=== PATIENT | female | born 1935 | race Caucasian/White ===

== ENCOUNTER → 2017-11-21 09:36 | Outpatient (CLI) | payer MEDICARE, SELFPAY ==
[2017-11-21 10:36] LABS: AST(SGOT) 13 U/L (15-37); Alanine Aminotransfer ALT/SGPT 23 U/L (13-56); Albumin, Serum 3.5 g/dL (3.2-5.0); Alkaline Phosphatase 72 U/L (45-117); Bilirubin, Direct 0.12 mg/dL (0.00-0.30); Cholesterol 210 mg/dL (200); Globulin 3.5 g/dL (2.2-4.2); High Density Lipoprotein 35 mg/dL; Triglycerides 225 mg/dL; Very Low Density Lipoprotein 45 mg/dL (5-40)
== END ==
PROVIDERS: Family Provider Family Medicine Geriatric Medicine; PCP Family Medicine Geriatric Medicine; Visit Provider Internal Medicine Cardiovascular Disease
DX: E78.5 Hyperlipidemia, unspecified (principal); Z79.899 Other long term (current) drug therapy
CPT/HCPCS: 36415; 80061; 80076

== ENCOUNTER → 2017-11-26 14:48 | Outpatient (CLI) | payer MEDICARE, SELFPAY ==
[2017-11-26 17:13] LABS: Absolute Lymphocyte Count 2.64 X10^3/ul (0.83-4.51); Absolute Neutrophil Count 5.2 X10^3/uL (2.0-7.7); Basophil# 0.07 X10^3/uL; Basophil% 0.8 % (0-1); Eosinophil# 0.44 X10^3/uL; Eosinophils% 4.8 % (0-5); Hematocrit 39.4 % (37-47); Hemoglobin 13.1 g/dl (12.0-15.0); Lymphocyte # 2.64 X10^3/ul (4.0); Mean Corp Hgb Conc 33.2 g/gl (32-36); Mean Corpuscular Hgb 29.1 pg (27.0-32.0); Mean Corpuscular Volume 87.6 fL (81-99); Mean Platelet Vol. 11.6 fl (6.2-12.0); Monocyte# 0.75 X10^3/uL; Monocyte% 8.2 % (0-10); Neutrophil # 5.19 X10^3/uL (2.7-7.7); Platelet Count 280 K/mm3 (150-450); RBC Distribution Width CV 13.4 % (11.6-14.6); RBC Distribution Width SD 41.6 fl (35.1-43.9); White Blood Count 9.1 K/mm3 (4.4-11.0)
[2017-11-26 17:16] LABS: POSITIVE COUNT NO; POSITIVE DIFFERENTIAL NO; POSITIVE MORPHOLOGY NO
[2017-11-26 17:36] LABS: Vitamin D,25 Hydroxy 30.6 ng/mL (29.95-100.01)
[2017-11-26 17:45] LABS: AST(SGOT) 12 U/L (15-37); Alanine Aminotransfer ALT/SGPT 24 U/L (13-56); Albumin, Serum 3.6 g/dL (3.2-5.0); Alkaline Phosphatase 74 U/L (45-117); Anion Gap 11 (5-15); BUN 19 mg/dL (7-18); BUN/Creat Ratio 18.4 RATIO (10-20); Chloride 103 mmol/L (98-107); Creatinine, Serum 1.03 mg/dL (0.55-1.02); EST Glomerular Filtration Rate 55 mL/min (>60); Est Glom Filt Rate - Afr Amer 66 mL/min (>60); Globulin 3.6 g/dL (2.2-4.2); Glucose 179 mg/dL (74-106); Potassium 3.7 mmol/L (3.5-5.1); Protein, Total 7.2 g/dL (6.4-8.2); Sodium Level 140 mmol/L (136-145); Thyroid Stim Hormone (TSH) 1.85 uIU/mL (0.358-3.74)
== END ==
PROVIDERS: Family Provider Family Medicine Geriatric Medicine; PCP Family Medicine Geriatric Medicine; Visit Provider Family Medicine Geriatric Medicine
DX: E11.9 Type 2 diabetes mellitus without complications (principal); E55.9 Vitamin D deficiency, unspecified; I10 Essential (primary) hypertension
CPT/HCPCS: 36415; 80053; 82306; 84443; 85025

== ENCOUNTER → 2017-12-02 15:57 | Outpatient (CLI) | payer MEDICARE, SELFPAY ==
--- NOTE | 2017-12-02 10:26 | TISS_PTH ---
PATIENT: ENDER ALVES LOC: [facility] U#:[id number] AGE/SX: 89/F ROOM: RE12/02/[address]: Dr. Brian Degroot MD : [id number] BED: DIS: SPEC #: [id number] RECD: 12/02/17 18:26 STATUS: LENORE MAXINE #: [id number] CRISTOBAL: 12/02/17 10:[address]: Brian Degroot Chi DEPT: SURGICAL PATHOLOGY RECD BY: Alma Victor Tissues: A - Skin of neck, NOS B - Skin of knee, NOS Procedures: Special Stain Group I Surgery Specimen Level IV GMS Stain (control) HEADER OPERATION: Not noted PRE-OP DIAGNOSIS: L98.9 TISSUE SUBMITTED: A. Right neck, B. Right, behind knee MICROSCOPIC DIAGNOSIS A. Right neck, excisional biopsy: Seborrheic keratosis. Squamous papilloma. Special stain for fungi is negative for organisms; matched control is appropriate. B. Right, behind knee lesion, biopsy: Superficial portion of verrucous keratosis, suggestive of verruca vulgaris. Special stain for fungi is negative for organisms; matched control is appropriate. CATHERINE:justice 12/04/17 COMMENT Clinical correlation and appropriate follow up are necessary. MICROSCOPIC DESCRIPTION Slides are reviewed. GROSS DESCRIPTION A - Received is one container labeled with the patient's name and not further designated. The specimen consists of two irregular fragments of atkinson tissue that in aggregate measure 0.6 x 0.5 x 0.2 cm. The specimen is totally submitted in one cassette. B - Received is one container labeled with the patient's name and not further designated. The specimen consists of multiple irregular fragments of atkinson tissue ranging in size from 0.1 to 0.5 cm in greatest dimension. The larger fragment is inked, bisected and submitted along with the smaller fragments in one cassette. / AM:justice 12/03/17 TC: 4 CPT: 08253 x2, 30245 x2
== END ==
PROVIDERS: Family Provider Family Medicine Geriatric Medicine; PCP Family Medicine Geriatric Medicine; Visit Provider Family Medicine Geriatric Medicine
DX: L98.9 Disorder of the skin and subcutaneous tissue, unspecified (principal)
CPT/HCPCS: 88305; 88312

== ENCOUNTER → 2018-01-01 16:12 | Outpatient (CLI) | payer MEDICARE, SELFPAY ==
--- NOTE | 2018-01-01 16:48 | RAD_ITS ---
STUDY: X-RAY CHEST REASON FOR EXAM: Female, 82 years old. Bronchitis TECHNIQUE: Frontal and lateral views of the chest COMPARISON: 01/30/2015 FINDINGS: The lungs are clear. There are no pleural effusions. There is no pneumothorax. The heart is normal in size. Again noted are sternotomy wires. There are stable old, healed right-sided rib fractures. RAD/Chest PA and Lateral IMPRESSION: No acute thoracic pathology. Electronically Signed: Armando Meredith, at 19:28 EDT Tel , Service support ,
[2018-01-01 18:01] LABS: Anion Gap 9 (5-15); BUN 17 mg/dL (7-18); Chloride 104 mmol/L (98-107); EST Glomerular Filtration Rate 57 mL/min (>60); Est Glom Filt Rate - Afr Amer 69 mL/min (>60); Glucose 204 mg/dL (74-106); Potassium 3.4 mmol/L (3.5-5.1); Sodium Level 140 mmol/L (136-145)
[2018-01-01 18:02] LABS: Absolute Lymphocyte Count 3.06 X10^3/ul (0.83-4.51); Basophil# 0.06 X10^3/uL; Basophil% 0.7 % (0-1); Eosinophil# 0.38 X10^3/uL; Eosinophils% 4.2 % (0-5); Hematocrit 36.4 % (37-47); Hemoglobin 12.2 g/dl (12.0-15.0); Lymphocyte # 3.06 X10^3/ul (4.0); Lymphocyte % 33.6 % (19-41); Mean Corp Hgb Conc 33.5 g/gl (32-36); Mean Corpuscular Volume 86.5 fL (81-99); Mean Platelet Vol. 11.4 fl (6.2-12.0); Monocyte# 0.61 X10^3/uL; Monocyte% 6.7 % (0-10); Neutrophil # 4.98 X10^3/uL (2.7-7.7); Neutrophil % 54.5 % (47-70); Platelet Count 283 K/mm3 (150-450); RBC Distribution Width CV 13.2 % (11.6-14.6); RBC Distribution Width SD 40.9 fl (35.1-43.9); Red Blood Count 4.21 M/mm3 (4.2-5.4); White Blood Count 9.1 K/mm3 (4.4-11.0)
[2018-01-01 18:17] LABS: POSITIVE COUNT NO; POSITIVE DIFFERENTIAL NO; POSITIVE MORPHOLOGY NO
== END ==
PROVIDERS: Family Provider Family Medicine Geriatric Medicine; PCP Family Medicine Geriatric Medicine; Visit Provider Family Medicine Geriatric Medicine
DX: J40 Bronchitis, not specified as acute or chronic (principal); R68.83 Chills (without fever); R06.02 Shortness of breath
CPT/HCPCS: 36415; 71046; 80048; 85025; 87633

== ENCOUNTER → 2018-01-09 10:18 | Outpatient (CLI) | payer MEDICARE, SELFPAY ==
[2018-01-09 13:38] LABS: Anion Gap 8 (5-15); BUN 19 mg/dL (7-18); BUN/Creat Ratio 14.3 RATIO (10-20); Calcium,Total 8.3 mg/dL (8.5-10.1); Chloride 104 mmol/L (98-107); Creatinine, Serum 1.33 mg/dL (0.55-1.02); EST Glomerular Filtration Rate 41 mL/min (>60); Est Glom Filt Rate - Afr Amer 49 mL/min (>60); Glucose 227 mg/dL (74-106); Potassium 3.5 mmol/L (3.5-5.1); Sodium Level 139 mmol/L (136-145)
== END ==
PROVIDERS: Family Provider Family Medicine Geriatric Medicine; PCP Family Medicine Geriatric Medicine; Visit Provider Family Medicine Geriatric Medicine
DX: E87.6 Hypokalemia (principal)
CPT/HCPCS: 36415; 80048

== ENCOUNTER → 2018-01-15 14:22 | Outpatient (CLI) | payer MEDICARE, SELFPAY ==
--- NOTE | 2018-01-15 14:23 | US_ITS ---
STUDY: RENAL ULTRASOUND - LIMITED REASON FOR EXAM: Female, 82 years old. Renal mass TECHNIQUE: Transverse and longitudinal imaging of the kidneys was performed using real-time ultrasound. COMPARISON: October 03, 2015 FINDINGS: RIGHT KIDNEY: The right kidney is normal in location. The right kidney measures 10.7 x 5.3 x 4.8 cm. The renal cortex is normal in appearance. The renal cortex measures 1.3 cm. There is no demonstrated renal mass. There is no dilatation of the collecting system. LEFT KIDNEY: The left kidney is normal in location. The left kidney measures 10.2 x 5.6 x 5.1 cm. The renal cortex is normal in appearance. The renal cortex measures 1.4 cm. An echogenic mass is again seen in the lower pole of the left kidney measuring 7.1 x 7.0 x 8.2 mm. This previously measured 7.6 x 7.5 x 8.2 mm. There is no dilatation of the collecting system. US/Kidney and Bladder IMPRESSION: Both kidneys are normal in size and echogenicity without hydronephrosis. 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 Electronically Signed: Eden Lipscomb MD at 16:08 EDT Tel Direct: [phone], Service support ,
== END ==
PROVIDERS: Family Provider Family Medicine Geriatric Medicine; PCP Family Medicine Geriatric Medicine; Visit Provider Internal Medicine Nephrology
DX: D17.71 Benign lipomatous neoplasm of kidney (principal); N28.89 Other specified disorders of kidney and ureter
CPT/HCPCS: 76770

== ENCOUNTER → 2018-02-05 07:27 | Outpatient (CLI) | payer MEDICARE, SELFPAY ==
--- NOTE | 2018-02-05 07:29 | BI_ITS ---
MAMMOGRAPHY - BILATERAL SCREENING REASON FOR EXAM: Female, 82 years old. Routine annual screening examination. PERTINENT HISTORY: Sister with breast cancer. TECHNIQUE: Digital bilateral breast luli (3D mammographic acquisition) in the CC and MLO projections. 2-D mediolateral oblique (MLO) and craniocaudad (CC) views of both breasts were obtained. CAD: Full Field Digital Mammography with Computer Added Detection was performed. COMPARISON: Comparison is made with prior study dated January 28, 2017 and January 25, 2016. FINDINGS: Breast Composition: There are scattered areas of fibroglandular density. There are no dominant masses or suspicious calcifications. No other significant abnormalities are identified. There has been no significant change since the prior study. BI/SCREENING MAMM (CAD), BILAT IMPRESSION: Stable bilateral screening mammogram. Yearly follow-up mammogram recommended. (A) ASSESSMENT CATEGORY: BIRADS Category 1: Negative. A letter regarding these results will be sent to the patient by the facility within 30 days. Approximately 10% of breast cancers are not detected by mammography. A normal mammogram should not delay biopsy of a clinically suspicious abnormality. [id number] Electronically Signed: Farzad Banks MD at 10:25 EDT Tel [phone], Service support ,
--- NOTE | 2018-02-05 07:29 | BI_ITS ---
MAMMOGRAPHY - BILATERAL SCREENING REASON FOR EXAM: Female, 82 years old. Routine annual screening examination. PERTINENT HISTORY: Sister with breast cancer. TECHNIQUE: Digital bilateral breast perico (3D mammographic acquisition) in the CC and MLO projections. 2-D mediolateral oblique (MLO) and craniocaudad (CC) views of both breasts were obtained. CAD: Full Field Digital Mammography with Computer Added Detection was performed. COMPARISON: Comparison is made with prior study dated January 28, 2017 and January 25, 2016. FINDINGS: Breast Composition: There are scattered areas of fibroglandular density. There are no dominant masses or suspicious calcifications. No other significant abnormalities are identified. There has been no significant change since the prior study. BI/Bilat Brst Screen Perico Add-On IMPRESSION: Stable bilateral screening mammogram. Yearly follow-up mammogram recommended. (A) ASSESSMENT CATEGORY: BIRADS Category 1: Negative. A letter regarding these results will be sent to the patient by the facility within 30 days. Approximately 10% of breast cancers are not detected by mammography. A normal mammogram should not delay biopsy of a clinically suspicious abnormality. [id number] Electronically Signed: Farzad Banks MD at 10:25 EDT Tel [phone], Service support ,
== END ==
PROVIDERS: Family Provider Family Medicine Geriatric Medicine; PCP Family Medicine Geriatric Medicine; Visit Provider Family Medicine Geriatric Medicine
DX: Z12.31 Encounter for screening mammogram for malignant neoplasm of breast (principal)
CPT/HCPCS: 77063; 77067

== ENCOUNTER → 2018-02-11 15:24 | Outpatient (CLI) | payer MEDICARE, SELFPAY ==
[2018-02-11 17:33] LABS: Absolute Lymphocyte Count 2.92 X10^3/ul (0.83-4.51); Basophil# 0.06 X10^3/uL; Basophil% 0.6 % (0-1); Eosinophil# 0.23 X10^3/uL; Eosinophils% 2.3 % (0-5); Hematocrit 38.6 % (37-47); Hemoglobin 12.6 g/dl (12.0-15.0); Lymphocyte # 2.92 X10^3/ul (4.0); Mean Corp Hgb Conc 32.6 g/gl (32-36); Mean Corpuscular Hgb 28.8 pg (27.0-32.0); Mean Corpuscular Volume 88.3 fL (81-99); Mean Platelet Vol. 11.5 fl (6.2-12.0); Monocyte% 7.9 % (0-10); Neutrophil # 6.02 X10^3/uL (2.7-7.7); Neutrophil % 59.8 % (47-70); Platelet Count 308 K/mm3 (150-450); RBC Distribution Width CV 13.7 % (11.6-14.6); RBC Distribution Width SD 43.7 fl (35.1-43.9); Red Blood Count 4.37 M/mm3 (4.2-5.4); White Blood Count 10.1 K/mm3 (4.4-11.0)
[2018-02-11 17:34] LABS: POSITIVE COUNT NO; POSITIVE DIFFERENTIAL NO; POSITIVE MORPHOLOGY NO
[2018-02-11 17:52] LABS: Vitamin D,25 Hydroxy 32.2 ng/mL (29.95-100.01)
[2018-02-11 18:03] LABS: ALB/GLOB Ratio 0.9 RATIO (0.9-2.4); AST(SGOT) 12 U/L (15-37); Alanine Aminotransfer ALT/SGPT 25 U/L (13-56); Albumin, Serum 3.5 g/dL (3.2-5.0); Alkaline Phosphatase 69 U/L (45-117); Anion Gap 8 (5-15); BUN 21 mg/dL (7-18); BUN/Creat Ratio 17.8 RATIO (10-20); Calcium,Total 9.2 mg/dL (8.5-10.1); Chloride 102 mmol/L (98-107); Creatinine, Serum 1.18 mg/dL (0.55-1.02); EST Glomerular Filtration Rate 47 mL/min (>60); Est Glom Filt Rate - Afr Amer 57 mL/min (>60); Globulin 3.7 g/dL (2.2-4.2); Glucose 181 mg/dL (74-106); Potassium 3.3 mmol/L (3.5-5.1); Protein, Total 7.2 g/dL (6.4-8.2); Sodium Level 140 mmol/L (136-145); Thyroid Stim Hormone (TSH) 0.84 uIU/mL (0.358-3.74)
== END ==
PROVIDERS: Family Provider Family Medicine Geriatric Medicine; PCP Family Medicine Geriatric Medicine; Visit Provider Internal Medicine Nephrology
DX: I12.9 Hypertensive chronic kidney disease with stage 1 through stage 4 chronic kidney disease, or unspecified chronic kidney disease (principal); E11.22 Type 2 diabetes mellitus with diabetic chronic kidney disease; N18.3 Chronic kidney disease, stage 3 (moderate); E55.9 Vitamin D deficiency, unspecified
CPT/HCPCS: 36415; 80053; 82306; 84443; 85025

== ENCOUNTER → 2018-03-26 15:25 | Outpatient (CLI) | payer MEDICARE, SELFPAY ==
[2018-03-26 18:04] LABS: Absolute Lymphocyte Count 2.47 X10^3/ul (0.83-4.51); Absolute Neutrophil Count 8.5 X10^3/uL (2.0-7.7); Basophil# 0.04 X10^3/uL; Basophil% 0.3 % (0-1); Eosinophil# 0.22 X10^3/uL; Eosinophils% 1.8 % (0-5); Hematocrit 36.2 % (37-47); Hemoglobin 11.8 g/dl (12.0-15.0); Lymphocyte # 2.47 X10^3/ul (4.0); Lymphocyte % 20.2 % (19-41); Mean Corp Hgb Conc 32.6 g/gl (32-36); Mean Corpuscular Hgb 28.6 pg (27.0-32.0); Mean Corpuscular Volume 87.9 fL (81-99); Mean Platelet Vol. 10.8 fl (6.2-12.0); Monocyte% 8.2 % (0-10); Neutrophil # 8.47 X10^3/uL (2.7-7.7); Neutrophil % 69.3 % (47-70); POSITIVE COUNT NO; POSITIVE DIFFERENTIAL NO; POSITIVE MORPHOLOGY NO; Platelet Count 338 K/mm3 (150-450); RBC Distribution Width CV 13.2 % (11.6-14.6); RBC Distribution Width SD 42.3 fl (35.1-43.9); Red Blood Count 4.12 M/mm3 (4.2-5.4); White Blood Count 12.2 K/mm3 (4.4-11.0)
[2018-03-26 18:11] LABS: Anion Gap 9 (5-15); BUN 19 mg/dL (7-18); BUN/Creat Ratio 20.5 RATIO (10-20); Chloride 108 mmol/L (98-107); Creatinine, Serum 0.93 mg/dL (0.55-1.02); EST Glomerular Filtration Rate 62 mL/min (>60); Est Glom Filt Rate - Afr Amer 75 mL/min (>60); Glucose 125 mg/dL (74-106); Potassium 3.5 mmol/L (3.5-5.1); Sodium Level 140 mmol/L (136-145); Uric Acid 4.1 mg/dL (2.6-6.0)
[2018-03-26 18:16] LABS: Erythrocyte Sedimentation Rate 41 mm/hr (0-30)
== END ==
PROVIDERS: Family Provider Family Medicine Geriatric Medicine; PCP Family Medicine Geriatric Medicine; Visit Provider Family Medicine Geriatric Medicine
DX: M25.50 Pain in unspecified joint (principal); M10.9 Gout, unspecified
CPT/HCPCS: 36415; 80048; 84550; 85025; 85652; 86140

== ENCOUNTER 2018-03-31 07:03 | Inpatient (IN) | payer MEDICARE, SELFPAY ==
[2018-03-31] VITALS (15 sets, daily range): BP systolic 108–170; BP diastolic 53–86; PULSE 84–119; RESP 16–34; TEMP 36.8–38.3; O2SAT 91–95; BMI 30.1; BMI 30.3
--- NOTE | 2018-03-31 07:31 | EKG12_ITS ---
Test Reason : SOB Blood Pressure : / mmHG Vent. Rate : 107 BPM Atrial Rate : 107 BPM P-R Int : 132 ms QRS Dur : 106 ms QT Int : 356 ms P-R-T Axes : 043 -36 030 degrees QTc Int : 475 ms Sinus tachycardia Left axis deviation Inferior infarct , age undetermined Abnormal ECG Confirmed by VINAY CORONA, CORY ([id number]), supervising editor news reel JUANIS PLUNKETT ([id number]) on 04/02/2018 2:13:01 PM Referred By: MERYL Confirmed By:CORY MCLEAN MD
--- NOTE | 2018-03-31 07:37 | RAD_ITS ---
STUDY: X-RAY CHEST REASON FOR EXAM: Female, 82 years old. Shortness of breath, nausea and vomiting. TECHNIQUE: Single AP portable view of the chest. COMPARISON: Comparison is made with prior study dated January 01, 2018. FINDINGS: EKG electrodes are seen. There is evidence of infiltration in the left upper lobe and patchy infiltrate in the left lower lobe with blunting of the left costophrenic angle. Radiographic follow-up is recommended. Sternal cerclage wires and vascular clips are present from a prior sternotomy and coronary artery bypass graft procedure (CABG). Normal mediastinum and norma. Normal visualized pulmonary arteries. There is atherosclerotic calcification of the aortic arch with tortuosity. Normal visualized thoracic spine. Healed right rib fractures. There is no demonstrated abnormality of the visualized soft tissue structures of the upper abdomen. RAD/Chest 1 View (Portable) IMPRESSION: Left pulmonary infiltrates with blunting of the left costophrenic angle. Radiographic follow-up is recommended. Electronically Signed: Farzad Banks MD at 7:57 EDT Tel [phone], Service support ,
[2018-03-31] MEDS: Ondansetron 4 MG/2 ML Vial IV (07:40)
[2018-03-31] MEDS: 0.9% Normal Saline 1,000 ML 1000 ML IV (07:40)
[2018-03-31 07:44] LABS: Absolute Lymphocyte Count 0.61 X10^3/ul (0.83-4.51); Absolute Neutrophil Count 16.2 X10^3/uL (2.0-7.7); Basophil# 0.01 X10^3/uL; Basophil% 0.1 % (0-1); Hematocrit 36.4 % (37-47); Hemoglobin 12.3 g/dl (12.0-15.0); Lymphocyte # 0.61 X10^3/ul (4.0); Lymphocyte % 3.5 % (19-41); Mean Corp Hgb Conc 33.8 g/gl (32-36); Mean Corpuscular Hgb 28.7 pg (27.0-32.0); Mean Corpuscular Volume 84.8 fL (81-99); Mean Platelet Vol. 10.5 fl (6.2-12.0); Monocyte# 0.64 X10^3/uL; Monocyte% 3.7 % (0-10); Neutrophil # 16.15 X10^3/uL (2.7-7.7); Neutrophil % 92.4 % (47-70); POSITIVE COUNT NO; POSITIVE DIFFERENTIAL NO; POSITIVE MORPHOLOGY NO; Platelet Count 345 K/mm3 (150-450); RBC Distribution Width CV 13.2 % (11.6-14.6); RBC Distribution Width SD 40.6 fl (35.1-43.9); Red Blood Count 4.29 M/mm3 (4.2-5.4); White Blood Count 17.5 K/mm3 (4.4-11.0)
[2018-03-31 07:57] LABS: AST(SGOT) 17 U/L (15-37); Alanine Aminotransfer ALT/SGPT 23 U/L (13-56); Albumin, Serum 2.2 g/dL (3.2-5.0); Alkaline Phosphatase 85 U/L (45-117); Anion Gap 12 (5-15); BUN 22 mg/dL (7-18); BUN/Creat Ratio 17.2 RATIO (10-20); Bilirubin, Direct 0.26 mg/dL (0.00-0.30); Calcium,Total 8.4 mg/dL (8.5-10.1); Chloride 98 mmol/L (98-107); Creatinine, Serum 1.28 mg/dL (0.55-1.02); EST Glomerular Filtration Rate 43 mL/min (>60); Est Glom Filt Rate - Afr Amer 52 mL/min (>60); Estimated Creatinine Clearance 30.27 ml/min; Globulin 5.1 g/dL (2.2-4.2); Glucose 202 mg/dL (74-106); Lipase 133 U/L (73-393); Protein, Total 7.3 g/dL (6.4-8.2); Sodium Level 131 mmol/L (136-145)
--- NOTE | 2018-03-31 08:22 | EKG12_ITS ---
Test Reason : REPEAT Blood Pressure : / mmHG Vent. Rate : 094 BPM Atrial Rate : 094 BPM P-R Int : 132 ms QRS Dur : 106 ms QT Int : 376 ms P-R-T Axes : 040 -26 047 degrees QTc Int : 470 ms Normal sinus rhythm Inferior infarct , age undetermined Abnormal ECG Confirmed by VINAY CORONA, CORY ([id number]), city editor JUANIS PLUNKETT ([id number]) on 04/02/2018 2:12:36 PM Referred By: MERYL Confirmed By:CORY MCLEAN MD
[2018-03-31] MEDS: Ceftriaxone 1 GM/50 ML BAG IV (08:34)
--- NOTE | 2018-03-31 08:43 | ED.VISSUMM ---
- ER Visit Summary Date of Service: 03/31/18 Chief Complaint: Cough and diarrhea History of Present Illness: The patient is a [address] Degroot and Dr. Bonilla. She reports that for the past 4 days she has had diarrhea approximately 3 times per day. No blood in her stools or black tarry stools. She has had nausea without vomiting. No abdominal pain. Patient denies sick contacts. Has not been camping out of the country. No possible bad food exposure. Does not drink well water. No recent antibiotic use. Patient also complains of subjective fever and chills. She has a nonproductive cough. She denies any chest pain or shortness of breath. She has a headache that is 7 out of 10 in severity and comes and goes. Finally, she complains of generalized weakness. Physical Examination: Vitals: 99.8, 144/73, 108, 28, 91% on room air which is not hypoxic. General: Well-nourished and well-developed. Head: Normocephalic atraumatic. Neck: Supple, no lymphadenopathy. No JVD. Nontender. Cardiovascular: Regular rate and rhythm. 2 out of 6 systolic murmur. Respiratory: No respiratory distress. Rhonchi on the left. Abdominal: Soft, nontender, nondistended, normal bowel sounds. No guarding, rebound, or peritoneal signs. Back: Nontender. Extremities: Nontender, no edema. Skin: Normal color, no rash. Neurologic: Alert and oriented ?3. Cranial nerves II through XII are intact. Normal strength and sensation. Psych: Normal affect. Test Results: EKG is sinus tachycardia 107 and is unchanged from January 2015. CBC is more for white count of 17.5 with 92 segmented neutrophils and 4 lymphocytes. Hematocrit is 36.4. Chem-7 is more for sodium 131, potassium 3.0, calcium 8.4, glucose of 202, BUN 22, creatinine 1.28. LFTs marked for an albumin of 2.2 and globulin 5.1. Lipase is normal. Troponin 0 0.019. Chest x-ray shows a left upper lobe and left lower lobe infiltrate. Lactic acid is 1.6. Magnesium is 1.9. Emergency Department Course and Treatment: Patient had a run where her heart rate was approximately 200. This appears to be SVT on the rhythm strip. This resolved without treatment. She is also having occasional PVCs. When the chest x-ray was obtained the patient had a lactic acid added and was given Rocephin and Zithromax IV. She was given K-Dur p.o. She was given Zofran for her nausea. She is resting comfortably. Treatment Plan: Patient will be discussed the hospitalist for admission. Disposition: Admitted in serious condition. Impression: 1. Pneumonia, community-acquired. 2. Diarrhea. 3. Hypokalemia. 4. SVT. This note was generated with [employer] 401 dictation software. It may contain incorrect words, spelling, and punctuation that were not noted in review of the chart prior to signing ED Disposition - Plan for ED Patient: Chief Complaint: Nausea/Vomiting/Diarrhea Referrals: Brian Degroot Chi, MD [Primary Care Provider] -
--- NOTE | 2018-03-31 08:47 | ED.DCSUM_ITS ---
- ER Visit Summary Date of Service: 03/31/18 Chief Complaint: Cough and diarrhea History of Present Illness: The patient is a [address] Degroot and Dr. Bonilla. She reports that for the past 4 days she has had diarrhea approximately 3 times per day. No blood in her stools or black tarry stools. She has had nausea without vomiting. No abdominal pain. Patient denies sick contacts. Has not been camping out of the country. No possible bad food exposure. Does not drink well water. No recent antibiotic use. Patient also complains of subjective fever and chills. She has a nonproductive cough. She denies any chest pain or shortness of breath. She has a headache that is 7 out of 10 in severity and comes and goes. Finally, she complains of generalized weakness. Physical Examination: Vitals: 99.8, 144/73, 108, 28, 91% on room air which is not hypoxic. General: Well-nourished and well-developed. Head: Normocephalic atraumatic. Neck: Supple, no lymphadenopathy. No JVD. Nontender. Cardiovascular: Regular rate and rhythm. 2 out of 6 systolic murmur. Respiratory: No respiratory distress. Rhonchi on the left. Abdominal: Soft, nontender, nondistended, normal bowel sounds. No guarding, rebound, or peritoneal signs. Back: Nontender. Extremities: Nontender, no edema. Skin: Normal color, no rash. Neurologic: Alert and oriented ?3. Cranial nerves II through XII are intact. Normal strength and sensation. Psych: Normal affect. Test Results: EKG is sinus tachycardia 107 and is unchanged from January 2015. CBC is more for white count of 17.5 with 92 segmented neutrophils and 4 lymphocytes. Hematocrit is 36.4. Chem-7 is more for sodium 131, potassium 3.0 , calcium 8.4, glucose of 202, BUN 22, creatinine 1.28. LFTs marked for an albumin of 2.2 and globulin 5.1. Lipase is normal. Troponin 0 0.019. Chest x- ray shows a left upper lobe and left lower lobe infiltrate. Lactic acid is 1.6. Magnesium is 1.9. Emergency Department Course and Treatment: Patient had a run where her heart rate was approximately 200. This appears to be SVT on the rhythm strip. This resolved without treatment. She is also having occasional PVCs. When the chest x-ray was obtained the patient had a lactic acid added and was given Rocephin and Zithromax IV. She was given K-Dur p.o. She was given Zofran for her nausea. She is resting comfortably. Treatment Plan: Patient will be discussed the hospitalist for admission. Disposition: Admitted in serious condition. Impression: 1. Pneumonia, community-acquired. 2. Diarrhea. 3. Hypokalemia. 4. SVT. This note was generated with [employer] dictation software. It may contain incorrect words, spelling, and punctuation that were not noted in review of the chart prior to signing ED Disposition - Plan for ED Patient: Chief Complaint: Nausea/Vomiting/Diarrhea Referrals: Brian Degroot Chi, MD [Primary Care Provider] -
[2018-03-31 08:48] LABS: International Normalized Ratio 1.2
[2018-03-31 08:49] LABS: Partial Thromboplast Time 41.9 Seconds (24.1-36.2)
[2018-03-31 08:53] LABS: Magnesium 1.9 mg/dL (1.6-2.6)
[2018-03-31 09:01] LABS: Lactic Acid 1.6 mmol/L (0.4-2.0)
--- NOTE | 2018-03-31 10:03 | CM.ED ---
CM INITIAL ASSESSMENT: Patient assessed in the ED. No visitors present at the time of interview. Home: Patient states she lives in a one story home. There are no steps into the home. HHS/Aides: Denies. Patient states she does not have help with home duties. She states she has a daughter in [place] and a daughter in [place]. DME: Denies. She does have a grab bar in her shower. Home Oxygen: Denies. Pharmacy: [facility] in [place]. Advance Directives: Patient states she does have advance directives, though I was unable to locate these in e-chart. She states her daughter, Michelle Bright, is medical POA. PCP: Dr. Degroot Specialists: Dr. Irene HORTON Plan: Patient would like to return home upon discharge. CM will continue to follow for safe and effective discharge planning.
[2018-03-31 11:50] LABS: Bedside Glucose 226 mg/dL (70-110)
[2018-03-31] MEDS: hydroCHLOROthiazide 25 MG Tablet PO (12:06)
[2018-03-31] MEDS: Clopidogrel Bisulfate 75 MG Tablet PO (12:06)
[2018-03-31] MEDS: Isosorbide Mononitrate 30 MG Tablet PO (12:06)
[2018-03-31] MEDS: Enoxaparin 40 MG/0.4 ML Syringe SC (12:07)
[2018-03-31] MEDS: Insulin Lispro 100 UNIT/ML INSULN.PEN SQ ×2 (12:07→16:27)
[2018-03-31] MEDS: predniSONE 20 MG Tablet PO (12:07)
[2018-03-31] MEDS: Metoprolol(XL)Succ 50 MG Tablet PO (12:07)
[2018-03-31] MEDS: amLODIPine 5 MG Tablet PO (12:07)
--- NOTE | 2018-03-31 13:06 | PCM.HP.STD ---
<Anish Villanueva - Last Filed: 03/31/18 13:10> Problem List (1) Sepsis Status: Acute (2) Pneumonia Status: Acute (3) SVT (supraventricular tachycardia) Status: Acute (4) DM2 (diabetes mellitus, type 2) Status: Chronic (5) CAD (coronary artery disease) Status: Chronic (6) HLD (hyperlipidemia) Status: Chronic (7) Hypertension Status: Chronic History of Present Illness Date of Admission: 03/31/18 Chief Complaint: diarrhea The patient is a 82 year old F who has a hx of CAD s/p CABG 1991 and stents 2013 - pt of Dr. Bonilla, HTN, HLD, DMt2, hypothyroid, former smoker, who presents to the ER with chief complaint of diarrhea x 4 days. She has had at least 3 episodes of diarrhea that is watery, she is unsure if there is blood, everyday. She also has had a cough for the same amount of time. She has produced some mucus, feels that she has significant chest congestion but is unable to clear it. She has no fever or chills. She is overall fatigued. She denies hx lung dz, is a former smoker who smoked until 57, for about 23 years. She is on O2 but does not normally use any at home. She was dizzy and lightheaded today, denied palpitations. In the ER her CXR demonstrated pna on the left side. She experienced an episode of SVT which was self limited and resolved without intervention. She is currently resting in bed, breathing heavily and speaking only a few words at a time. She denies sick contacs. She travelled by plane to [place] recently. She denies CP or pleurisy. [] Past Medical History Past Medical History (Chronic Problems): Chronic Problems (Last Reviewed 11/24/17 @ 13:03 by Carol Barba) DM2 (diabetes mellitus, type 2) (Chronic) CAD (coronary artery disease) (Chronic) HLD (hyperlipidemia) (Chronic) TIA (transient ischemic attack) (Chronic) History of percutaneous transluminal coronary angioplasty (Chronic) PTCA with Taxus stent to SVG to OM, 2005 - 03/05/10 PTCA/stent (JESSICA) to proximal to mod SVG to 2nd obtuse marginal artery - Successful angioplasty & Promus JESSICA of [place] PCI @ [facility] stent SVG-OM 01/10 Aortocoronary bypass status (Chronic) CABG SVG to DG, OM & RCA Carotid bruit (Chronic) Coronary atherosclerosis of [place] coronary artery (Chronic) Hypertension (Chronic) Medical History: Medical History (Last Reviewed 11/24/17 @ 13:03 by Carol Barba) CAD (coronary artery disease) (Chronic) I25.10 HLD (hyperlipidemia) (Chronic) E78.5 TIA (transient ischemic attack) (Chronic) G45.9 Carotid bruit (Chronic) R09.89 Coronary atherosclerosis of [place] coronary artery (Chronic) I25.10 Hypertension (Chronic) I10 Abnormal finding on cardiovascular stress test R94.39 COPD (chronic obstructive pulmonary disease) J44.9 Other care home (current) drug therapy Z79.899 Allergies No Known Allergies Allergy (Verified 03/31/18 07:21) Home Medications: Ambulatory Orders Medication Instructions Recorded Aspirin [Aspirin, Baby] 81 mg PO DAILY@0800 10/13/13 Levothyroxine [Synthroid] 137 mcg PO DAILY 10/13/13 Potassium Chloride [Klor-Con 10] 20 meq PO DAILY 10/13/13 Nitroglycerin [Nitrostat] 0.4 mg SUBLINGUAL Q5M PRN 12/21/13 metoprolol succinate ER 50 mg 50 mg PO DAILY #90 tab 10/14/17 tablet,extended release 24 hr isosorbide mononitrate ER 30 mg 30 mg PO QAM #90 tab 10/28/17 tablet,extended release 24 hr clopidogrel 75 mg tablet 75 mg PO DAILY #90 tab 11/10/17 ergocalciferol (vitamin D2) 50,000 50,000 unit PO QMONTH 11/18/17 unit capsule atorvastatin 20 mg tablet 40 mg PO QHS tab 11/24/17 Acetaminophen [Tylenol Extra 1,000 mg PO TID 03/31/18 Strength] Amlodipine [Norvasc] 5 mg PO DAILY 03/31/18 Baclofen [Lioresal] 10 mg PO QHS 03/31/18 Glipizide/Metformin HCl 2 each PO BID 03/31/18 [Glipizide-Metformin 2.5-500 mg] Insulin Glargine,Hum.rec.anlog 27 unit SQ QHS 03/31/18 [Toujeo Solostar] Lubiprostone [Amitiza] 24 mcg PO BID 03/31/18 Prednisone 30 mg PO DAILY 03/31/18 Valsartan/Hydrochlorothiazide 1 each PO DAILY 03/31/18 [Valsartan-Hctz 320-25 mg Tab] Surgical History: Surgical History (Last Reviewed 11/24/17 @ 13:03 by Carol Barba) History of percutaneous transluminal coronary angioplasty (Chronic) Z98.61 PTCA with Taxus stent to SVG to OM, 2005 - 03/05/10 PTCA/stent (JESSICA) to proximal to mod SVG to 2nd obtuse marginal artery - Successful angioplasty & Promus JESSICA of [place] PCI @ [facility] stent SVG-OM 01/10 Aortocoronary bypass status (Chronic) Z95.1 CABG SVG to DG, OM & RCA Surgical History: appendectomy, cholecystectomy, coronary bypass surgery, hysterectomy Psychiatric History: No pertinent psych hx 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 Denies: Chills, Fever, Weight Change HEENT: Denies: Head Aches, Sinus Congestion, Sinus Drainage Cardiovascular: Reports: Light Headedness. Denies: Chest Pain, Chest Pressure, Chest Tightness, Edema, Heaviness, Orthopnea, Palpitations, Syncope Respiratory: Reports: Cough, Shortness of Breath, Shortness of breath at rest, Shortness of breath upon exertion, Sputum production. Denies: Wheezing Gastrointestinal: Reports: Diarrhea. Denies: Abdominal Pain, Nausea, Vomiting Genitourinary: Denies: Dysuria Musculoskeletal: Denies: Joint Pain, Joint Tenderness Skin: Denies: Rash, Wounds Neurological: Denies: Numbness, Tingling, Focal weakness Psychiatric: Denies: Anxiety, Depression, Homicidal Ideations, Suicidal Ideations Hematologic/ Lymphatic: Denies: Easy Bruising, Easy Bleeding VTE Information - Inpt Only VTE Present on Admission: No VTE Mechan Device Prophylaxis: SCD's VTE Pharm Prophylaxis ordered?: Yes Patient Problems: Active and Suspected Problems (Last Reviewed 11/24/17 @ 13:03 by Carol Barba) Pneumonia (Acute) SVT (supraventricular tachycardia) (Acute) Sepsis (Acute) - Physical Exam General: Alert, Oriented x3, Cooperative, Lethargic HEENT: Atraumatic, PERRLA, EOMI, Normocephalic Neck: Supple, No JVD, Negative Carotid Bruits Lungs: Diminished, Rales - LLL, Short of Breath, Tachypneic, - - conversational dyspnea Cardiovascular: Regular rate, No murmurs, Tachycardic Abdomen: Bowel Sounds Present, Soft, Non Tender Extremities: No edema, Capillary Refill Less than 3 Seconds Skin: No rashes, No breakdown Musculoskeletal: No Tenderness to Palpation of Joints or Extremities Neurological: Cranial nerves II-XII grossly intact Psych/Mental Status: Normal Affect, Appropriate, Alert and oriented to time, place, person, mood and affect Vital Signs Temp Pulse Resp BP Pulse Ox 98.3 F 111 H 20 H 143/82 H 94 03/31/18 10:54 03/31/18 12:07 03/31/18 10:54 03/31/18 10:54 03/31/18 11:00 Oxygen Flow Rate (L/min) 3 Oxygen Delivery Method Nasal Cannula Weight: 80.1 kg Body Mass Index (BMI) 30.3 Intake and Output for Last 24 Hours 03/29/18 03/30/18 03/31/18 23:59 23:59 23:59 Intake Total 262.4 / 262.4 Balance 262.4 / 262.4 POC Glucose 03/31/18 11:09 POC Glucose 226 H Assessment/Plan All Active Problems (Last Reviewed 11/24/17 @ 13:03 by Carol Barba) Pneumonia (Acute) SVT (supraventricular tachycardia) (Acute) Sepsis (Acute) Chest pain (Acute) 1. Acute sepsis 2/2 left sided CAP - suspect pneumococcal - as evidenced by tachycardia, tachypnea, leukocytosis, CXR. Continue rocephin and azithromycin, mucinex, pep therapy, urine antigens, sputum culture, blood culture. Afebrile. Add ipratropium, avoid albuterol with SVT. Currently on 3 lpm O2, does not use home o2. 2. SVT 2/2 sepsis - maintain on tele. resolved without intervention. Continue beta blockers. 3. Dehydration 2/2 diarrhea (suspect viral) - with hypokalemia and hyponatremeia. Provide IV fluids with NaCl. Trend. Cdiff ordered for diarrhea. 4. DMt2 - hold orals, SSI 5. CAD - prior CABG/stents, pt of Dr. Bonilla - continue asa/statin, beta liana, plavix, imdur, arb. Troponin is neg. EKG with sinus tach 6. Hypothyroid - synthroid. 7. HTN - running on high side, trend. DVT ppx: Lovenox DC planning: ptot This patient was seen by Anish Villanueva PA-C under the supervision of Doctor Clarissa. <Kel Romo - Last Filed: 03/31/18 13:45> Problem List (1) Pneumonia Status: Acute (2) Sepsis Status: Acute History of Present Illness The patient is a 82 year old F who has been having myalgias, arthralgias and diarrhea for approximately 4 days Presents to the ER. Found to have pneumonia and sepsis. Received azithromycin and ceftriaxone. [] Past Medical History Medical History: Medical History (Last Reviewed 03/31/18 @ 13:40 by Kel Romo DO) CAD (coronary artery disease) (Chronic) I25.10 HLD (hyperlipidemia) (Chronic) E78.5 TIA (transient ischemic attack) (Chronic) G45.9 Carotid bruit (Chronic) R09.89 Coronary atherosclerosis of [place] coronary artery (Chronic) I25.10 Hypertension (Chronic) I10 Abnormal finding on cardiovascular stress test R94.39 COPD (chronic obstructive pulmonary disease) J44.9 Other care home (current) drug therapy Z79.899 Allergies No Known Allergies Allergy (Verified 03/31/18 07:21) Surgical History: Surgical History (Last Reviewed 03/31/18 @ 13:40 by Kel Romo DO) History of percutaneous transluminal coronary angioplasty (Chronic) Z98.61 PTCA with Taxus stent to SVG to OM, 2005 - 03/05/10 PTCA/stent (JESSICA) to proximal to mod SVG to 2nd obtuse marginal artery - Successful angioplasty & Promus JESSICA of [place] PCI @ [facility] stent SVG-OM 01/10 Aortocoronary bypass status (Chronic) Z95.1 CABG SVG to DG, OM & RCA - *Family History Maternal Family History: Family History (Last Reviewed 03/31/18 @ 13:40 by Kel Romo DO) Mother Colon cancer Paternal Family History: Family History (Last Reviewed 03/31/18 @ 13:40 by Kel Romo DO) Mother Colon cancer Review of Systems Constitutional: Reports: Malaise, Weakness. Denies: Chills, Fever, Weight Change, Fatigue Eyes: Denies: Blurred vision, Double vision HEENT: Denies: Head Aches, Sinus Congestion, Sinus Drainage Cardiovascular: Reports: Light Headedness. Denies: Chest Pain, Chest Pressure, Chest Tightness, Edema, Heaviness, Orthopnea, Palpitations, Syncope Respiratory: Reports: Cough, Shortness of Breath, Shortness of breath at rest, Shortness of breath upon exertion, Sputum production. Denies: Wheezing Gastrointestinal: Reports: Diarrhea. Denies: Abdominal Pain, Nausea, Vomiting Genitourinary: Denies: Dysuria Musculoskeletal: Denies: Hand Pain, Joint Tenderness Skin: Denies: Rash, Wounds Neurological: Denies: Focal weakness, Numbness, Tingling Psychiatric: Denies: Anxiety, Depression, Homicidal Ideations, Suicidal Ideations Hematologic/ Lymphatic: Denies: Easy Bruising, Easy Bleeding VTE Information - Inpt Only VTE Present on Admission: No VTE Mechan Device Prophylaxis: SCD's VTE Pharm Prophylaxis ordered?: Yes - Physical Exam General: Alert, Cooperative, Lethargic HEENT: Atraumatic, PERRLA, EOMI, Normocephalic Neck: Supple, No JVD, Negative Carotid Bruits Lungs: Diminished, Rales, Short of Breath, Tachypneic, - Cardiovascular: Regular Rhythm, Normal S1, Normal S2, No murmurs Abdomen: Bowel Sounds Present, Soft, Non Tender, Non-Distended Extremities: No edema, No Calf Tenderness Skin: No rashes, No breakdown Musculoskeletal: No Tenderness to Palpation of Joints or Extremities Neurological: Neuro grossly intact, Muscle tone normal, Coordination normal Psych/Mental Status: Normal Affect, Appropriate Comment: vomited while I was in the room. Vital Signs Temp Pulse Resp BP Pulse Ox 36.8 C 111 H 20 H 143/82 H 94 03/31/18 10:54 03/31/18 12:07 03/31/18 10:54 03/31/18 10:54 03/31/18 11:00 Oxygen Flow Rate (L/min) 3 Oxygen Delivery Method Nasal Cannula Weight: 80.1 kg Body Mass Index (BMI) 30.3 Intake and Output for Last 24 Hours 03/29/18 03/30/18 03/31/18 23:59 23:59 23:59 Intake Total 262.4 / 262.4 Balance 262.4 / 262.4 POC Glucose 03/31/18 11:09 POC Glucose 226 H CXR reviewed and showed left sided hazy infiltrate. Assessment/Plan Patient seen and examined independently. Data reviewed. I agree with the above note by the physician security assistant. 1. Sepsis Present on arrival Secondary to pneumonia Supportive management 2. Suspected pneumococcal pneumonia Continue with azithromycin and Rocephin Check urinary antigens for Streptococcus and Legionella Pulmonary toilet 3. Diarrhea Doubt C. difficile but will follow up studies If C. difficile negative then patient be started on Imodium 4. SVT Transient and resolved Patient be monitored on telemetry for now, if no further events, may consider discontinuing telemetry 5. Advanced care planning: Discussed with the patient. Patient wishes to have CPR in the event of cardiac arrest but does not wish to be intubated if she develops respiratory arrest. I informed that these decisions are certainly fluid again change at later points. 6. DVT prophylaxis with Lovenox Code Visit Inpatient E&M: 83902 Init Hosp L3
--- NOTE | 2018-03-31 13:10 | HP.PCM_ITS ---
<Anish Villanueva - Last Filed: 03/31/18 13:10> Problem List (1) Sepsis Status: Acute (2) Pneumonia Status: Acute (3) SVT (supraventricular tachycardia) Status: Acute (4) DM2 (diabetes mellitus, type 2) Status: Chronic (5) CAD (coronary artery disease) Status: Chronic (6) HLD (hyperlipidemia) Status: Chronic (7) Hypertension Status: Chronic History of Present Illness Date of Admission: 03/31/18 Chief Complaint: diarrhea The patient is a 82 year old F who has a hx of CAD s/p CABG 1991 and stents 2013 - pt of Dr. Bnoilla, HTN, HLD, DMt2, hypothyroid, former smoker, who presents to the ER with chief complaint of diarrhea x 4 days. She has had at least 3 episodes of diarrhea that is watery, she is unsure if there is blood, everyday. She also has had a cough for the same amount of time. She has produced some mucus, feels that she has significant chest congestion but is unable to clear it. She has no fever or chills. She is overall fatigued. She denies hx lung dz, is a former smoker who smoked until 57, for about 23 years. She is on O2 but does not normally use any at home. She was dizzy and lightheaded today, denied palpitations. In the ER her CXR demonstrated pna on the left side. She experienced an episode of SVT which was self limited and resolved without intervention. She is currently resting in bed, breathing heavily and speaking only a few words at a time. She denies sick contacs. She travelled by plane to [place] recently. She denies CP or pleurisy. [] Past Medical History Past Medical History (Chronic Problems): Chronic Problems (Last Reviewed 11/24/17 @ 13:03 by Carol Barba) DM2 (diabetes mellitus, type 2) (Chronic) CAD (coronary artery disease) (Chronic) HLD (hyperlipidemia) (Chronic) TIA (transient ischemic attack) (Chronic) History of percutaneous transluminal coronary angioplasty (Chronic) PTCA with Taxus stent to SVG to OM, 2005 - 03/05/10 PTCA/stent (JESSICA) to proximal to mod SVG to 2nd obtuse marginal artery - Successful angioplasty & Promus JESSICA of kashia OM PCI @ [facility] stent SVG-OM 01/10 Aortocoronary bypass status (Chronic) CABG SVG to DG, OM & RCA Carotid bruit (Chronic) Coronary atherosclerosis of kashia coronary artery (Chronic) Hypertension (Chronic) Medical History: Medical History (Last Reviewed 11/24/17 @ 13:03 by Carol Barba) CAD (coronary artery disease) (Chronic) I25.10 HLD (hyperlipidemia) (Chronic) E78.5 TIA (transient ischemic attack) (Chronic) G45.9 Carotid bruit (Chronic) R09.89 Coronary atherosclerosis of kash[place] coronary artery (Chronic) I25.10 Hypertension (Chronic) I10 Abnormal finding on cardiovascular stress test R94.39 COPD (chronic obstructive pulmonary disease) J44.9 Other fpc (current) drug therapy Z79.899 Allergies No Known Allergies Allergy (Verified 03/31/18 07:21) Home Medications: Ambulatory Orders Medication Instructions Recorded Aspirin [Aspirin, Baby] 81 mg PO DAILY@0800 10/13/13 Levothyroxine [Synthroid] 137 mcg PO DAILY 10/13/13 Potassium Chloride [Klor-Con 10] 20 meq PO DAILY 10/13/13 Nitroglycerin [Nitrostat] 0.4 mg SUBLINGUAL Q5M PRN 12/21/13 metoprolol succinate ER 50 mg 50 mg PO DAILY #90 tab 10/14/17 tablet,extended release 24 hr isosorbide mononitrate ER 30 mg 30 mg PO QAM #90 tab 10/28/17 tablet,extended release 24 hr clopidogrel 75 mg tablet 75 mg PO DAILY #90 tab 11/10/17 ergocalciferol (vitamin D2) 50,000 50,000 unit PO QMONTH 11/18/17 unit capsule atorvastatin 20 mg tablet 40 mg PO QHS tab 11/24/17 Acetaminophen [Tylenol Extra 1,000 mg PO TID 03/31/18 Strength] Amlodipine [Norvasc] 5 mg PO DAILY 03/31/18 Baclofen [Lioresal] 10 mg PO QHS 03/31/18 Glipizide/Metformin HCl 2 each PO BID 03/31/18 [Glipizide-Metformin 2.5-500 mg] Insulin Glargine,Hum.rec.anlog 27 unit SQ QHS 03/31/18 [Toujeo Solostar] Lubiprostone [Amitiza] 24 mcg PO BID 03/31/18 Prednisone 30 mg PO DAILY 03/31/18 Valsartan/Hydrochlorothiazide 1 each PO DAILY 03/31/18 [Valsartan-Hctz 320-25 mg Tab] Surgical History: Surgical History (Last Reviewed 11/24/17 @ 13:03 by Carol Barba) History of percutaneous transluminal coronary angioplasty (Chronic) Z98.61 PTCA with Taxus stent to SVG to OM, 2005 - 03/05/10 PTCA/stent (JESSICA) to proximal to mod SVG to 2nd obtuse marginal artery - Successful angioplasty & Promus JESSICA of kashia OM PCI @ [facility] stent SVG-OM 01/10 Aortocoronary bypass status (Chronic) Z95.1 CABG SVG to DG, OM & RCA Surgical History: appendectomy, cholecystectomy, coronary bypass surgery, hysterectomy Psychiatric History: No pertinent psych hx 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 Denies: Chills, Fever, Weight Change HEENT: Denies: Head Aches, Sinus Congestion, Sinus Drainage Cardiovascular: Reports: Light Headedness. Denies: Chest Pain, Chest Pressure, Chest Tightness, Edema, Heaviness, Orthopnea, Palpitations, Syncope Respiratory: Reports: Cough, Shortness of Breath, Shortness of breath at rest, Shortness of breath upon exertion, Sputum production. Denies: Wheezing Gastrointestinal: Reports: Diarrhea. Denies: Abdominal Pain, Nausea, Vomiting Genitourinary: Denies: Dysuria Musculoskeletal: Denies: Joint Pain, Joint Tenderness Skin: Denies: Rash, Wounds Neurological: Denies: Numbness, Tingling, Focal weakness Psychiatric: Denies: Anxiety, Depression, Homicidal Ideations, Suicidal Ideations Hematologic/ Lymphatic: Denies: Easy Bruising, Easy Bleeding VTE Information - Inpt Only VTE Present on Admission: No VTE Mechan Device Prophylaxis: SCD's VTE Pharm Prophylaxis ordered?: Yes Patient Problems: Active and Suspected Problems (Last Reviewed 11/24/17 @ 13:03 by Carol Barba) Pneumonia (Acute) SVT (supraventricular tachycardia) (Acute) Sepsis (Acute) - Physical Exam General: Alert, Oriented x3, Cooperative, Lethargic HEENT: Atraumatic, PERRLA, EOMI, Normocephalic Neck: Supple, No JVD, Negative Carotid Bruits Lungs: Diminished, Rales - LLL, Short of Breath, Tachypneic, - - conversational dyspnea Cardiovascular: Regular rate, No murmurs, Tachycardic Abdomen: Bowel Sounds Present, Soft, Non Tender Extremities: No edema, Capillary Refill Less than 3 Seconds Skin: No rashes, No breakdown Musculoskeletal: No Tenderness to Palpation of Joints or Extremities Neurological: Cranial nerves II-XII grossly intact Psych/Mental Status: Normal Affect, Appropriate, Alert and oriented to time, place, person, mood and affect Vital Signs Temp Pulse Resp BP Pulse Ox 98.3 F 111 H 20 H 143/82 H 94 03/31/18 10:54 03/31/18 12:07 03/31/18 10:54 03/31/18 10:54 03/31/18 11:00 Oxygen Flow Rate (L/min) 3 Oxygen Delivery Method Nasal Cannula Weight: 80.1 kg Body Mass Index (BMI) 30.3 Intake and Output for Last 24 Hours 03/29/18 03/30/18 03/31/18 23:59 23:59 23:59 Intake Total 262.4 / 262.4 Balance 262.4 / 262.4 POC Glucose 03/31/18 11:09 POC Glucose 226 H Assessment/Plan All Active Problems (Last Reviewed 11/24/17 @ 13:03 by Carol Barba) Pneumonia (Acute) SVT (supraventricular tachycardia) (Acute) Sepsis (Acute) Chest pain (Acute) 1. Acute sepsis 2/2 left sided CAP - suspect pneumococcal - as evidenced by tachycardia, tachypnea, leukocytosis, CXR. Continue rocephin and azithromycin, mucinex, pep therapy, urine antigens, sputum culture, blood culture. Afebrile. Add ipratropium, avoid albuterol with SVT. Currently on 3 lpm O2, does not use home o2. 2. SVT 2/2 sepsis - maintain on tele. resolved without intervention. Continue beta blockers. 3. Dehydration 2/2 diarrhea (suspect viral) - with hypokalemia and hyponatremeia. Provide IV fluids with NaCl. Trend. Cdiff ordered for diarrhea. 4. DMt2 - hold orals, SSI 5. CAD - prior CABG/stents, pt of Dr. Bonilla - continue asa/statin, beta liana , plavix, imdur, arb. Troponin is neg. EKG with sinus tach 6. Hypothyroid - synthroid. 7. HTN - running on high side, trend. DVT ppx: Lovenox DC planning: ptot This patient was seen by Anish Villanueva PA-C under the supervision of Doctor Clarissa. <Kel Romo - Last Filed: 03/31/18 13:45> Problem List (1) Pneumonia Status: Acute (2) Sepsis Status: Acute History of Present Illness The patient is a 82 year old F who has been having myalgias, arthralgias and diarrhea for approximately 4 days Presents to the ER. Found to have pneumonia and sepsis. Received azithromycin and ceftriaxone. [] Past Medical History Medical History: Medical History (Last Reviewed 03/31/18 @ 13:40 by Kel Romo DO) CAD (coronary artery disease) (Chronic) I25.10 HLD (hyperlipidemia) (Chronic) E78.5 TIA (transient ischemic attack) (Chronic) G45.9 Carotid bruit (Chronic) R09.89 Coronary atherosclerosis of kashia coronary artery (Chronic) I25.10 Hypertension (Chronic) I10 Abnormal finding on cardiovascular stress test R94.39 COPD (chronic obstructive pulmonary disease) J44.9 Other fpc (current) drug therapy Z79.899 Allergies No Known Allergies Allergy (Verified 03/31/18 07:21) Surgical History: Surgical History (Last Reviewed 03/31/18 @ 13:40 by Kel Romo DO) History of percutaneous transluminal coronary angioplasty (Chronic) Z98.61 PTCA with Taxus stent to SVG to OM, 2005 - 03/05/10 PTCA/stent (JESSICA) to proximal to mod SVG to 2nd obtuse marginal artery - Successful angioplasty & Promus JESSICA of kashia OM PCI @ [facility] stent SVG-OM 01/10 Aortocoronary bypass status (Chronic) Z95.1 CABG SVG to DG, OM & RCA - *Family History Maternal Family History: Family History (Last Reviewed 03/31/18 @ 13:40 by Kel Romo DO) Mother Colon cancer Paternal Family History: Family History (Last Reviewed 03/31/18 @ 13:40 by Kel Romo DO) Mother Colon cancer Review of Systems Constitutional: Reports: Malaise, Weakness. Denies: Chills, Fever, Weight Change, Fatigue Eyes: Denies: Blurred vision, Double vision HEENT: Denies: Head Aches, Sinus Congestion, Sinus Drainage Cardiovascular: Reports: Light Headedness. Denies: Chest Pain, Chest Pressure, Chest Tightness, Edema, Heaviness, Orthopnea, Palpitations, Syncope Respiratory: Reports: Cough, Shortness of Breath, Shortness of breath at rest, Shortness of breath upon exertion, Sputum production. Denies: Wheezing Gastrointestinal: Reports: Diarrhea. Denies: Abdominal Pain, Nausea, Vomiting Genitourinary: Denies: Dysuria Musculoskeletal: Denies: Hand Pain, Joint Tenderness Skin: Denies: Rash, Wounds Neurological: Denies: Focal weakness, Numbness, Tingling Psychiatric: Denies: Anxiety, Depression, Homicidal Ideations, Suicidal Ideations Hematologic/ Lymphatic: Denies: Easy Bruising, Easy Bleeding VTE Information - Inpt Only VTE Present on Admission: No VTE Mechan Device Prophylaxis: SCD's VTE Pharm Prophylaxis ordered?: Yes - Physical Exam General: Alert, Cooperative, Lethargic HEENT: Atraumatic, PERRLA, EOMI, Normocephalic Neck: Supple, No JVD, Negative Carotid Bruits Lungs: Diminished, Rales, Short of Breath, Tachypneic, - Cardiovascular: Regular Rhythm, Normal S1, Normal S2, No murmurs Abdomen: Bowel Sounds Present, Soft, Non Tender, Non-Distended Extremities: No edema, No Calf Tenderness Skin: No rashes, No breakdown Musculoskeletal: No Tenderness to Palpation of Joints or Extremities Neurological: Neuro grossly intact, Muscle tone normal, Coordination normal Psych/Mental Status: Normal Affect, Appropriate Comment: vomited while I was in the room. Vital Signs Temp Pulse Resp BP Pulse Ox 36.8 C 111 H 20 H 143/82 H 94 03/31/18 10:54 03/31/18 12:07 03/31/18 10:54 03/31/18 10:54 03/31/18 11:00 Oxygen Flow Rate (L/min) 3 Oxygen Delivery Method Nasal Cannula Weight: 80.1 kg Body Mass Index (BMI) 30.3 Intake and Output for Last 24 Hours 03/29/18 03/30/18 03/31/18 23:59 23:59 23:59 Intake Total 262.4 / 262.4 Balance 262.4 / 262.4 POC Glucose 03/31/18 11:09 POC Glucose 226 H CXR reviewed and showed left sided hazy infiltrate. Assessment/Plan Patient seen and examined independently. Data reviewed. I agree with the above note by the physician respiratory assistant. 1. Sepsis * Present on arrival * Secondary to pneumonia * Supportive management 2. Suspected pneumococcal pneumonia * Continue with azithromycin and Rocephin * Check urinary antigens for Streptococcus and Legionella * Pulmonary toilet 3. Diarrhea * Doubt C. difficile but will follow up studies * If C. difficile negative then patient be started on Imodium 4. SVT * Transient and resolved * Patient be monitored on telemetry for now, if no further events, may consider discontinuing telemetry 5. Advanced care planning: Discussed with the patient. Patient wishes to have CPR in the event of cardiac arrest but does not wish to be intubated if she develops respiratory arrest. I informed that these decisions are certainly fluid again change at later points. 6. DVT prophylaxis with Lovenox Code Visit Inpatient E&M: 04280 In Hosp L3
[2018-03-31] MEDS: Acetaminophen 500 MG Tablet 1000 MG PO ×2 (13:49→21:44)
[2018-03-31 15:17] LABS: Mucous, Urine 0 SEEN /hpf (<or=2+); Red Blood Cells-Urine 0 SEEN /hpf (0-5)
[2018-03-31 15:20] LABS: Color, Urine Yellow (Yellow); Glucose, Dipstick 100 mg/dl (Normal); Ketone-Dipstick Negative (Negative); Leukocyte Esterase-Dipstick 25 /ul (Negative); Nitrite-Dipstick Negative (Negative); Occult Blood-Urine 150 /ul (Negative); Protein-Dipstick 100 mg/dl (Negative); Specific Gravity, Urine 1.015 (1.002-1.030); Urine Bilirubin Dipstick Negative (Negative); Urine Clarity Clear (Clear); Urine Urobilinogen Normal (Normal)
[2018-03-31 15:34] LABS: Bacteria 1+ /hpf (None Seen); Squamous Epithelial Cells - UA 5-10 SEEN /hpf (5-10); White Blood Cells 0-5 SEEN /hpf (0-5)
[2018-03-31 15:38] LABS: Amorphous Sediment 2+
[2018-03-31 15:39] LABS: Coarse Granular Cast 0-5 SEEN /lpf (0-5 /lpf)
[2018-03-31] MEDS: 0.9% Normal Saline 1,000 ML 100 ML IV (18:10)
[2018-03-31 18:58] LABS: Thyroid Stim Hormone (TSH) 0.25 uIU/mL (0.358-3.74)
[2018-03-31] MEDS: Lubiprostone 24 MCG Capsule PO (21:43)
[2018-03-31] MEDS: guaiFENesin 1,200 MG Tablet 1200 MG PO (21:44)
[2018-03-31] MEDS: Atorvastatin Calcium 20 MG Tablet 40 MG PO (21:44)
[2018-03-31 21:56] LABS: Bedside Glucose 253 mg/dL (70-110)
[2018-03-31] MEDS: Acetaminophen 325 MG Tablet 650 MG PO (23:03)
[2018-04-01] VITALS (22 sets, daily range): BP systolic 96–134; BP diastolic 51–87; PULSE 61–100; RESP 16–29; TEMP 36.4–38.2; O2SAT 91–99
[2018-04-01 00:51] LABS: Bedside Glucose 214 mg/dL (70-110)
[2018-04-01] MEDS: levoFLOXacin IV 750 MG/150 ML BAG 100 MG IV (01:13)
[2018-04-01] MEDS: 0.9% Normal Saline 1,000 ML 100 ML IV ×2 (05:15→15:56)
[2018-04-01 06:05] LABS: International Normalized Ratio 1.2; Prothrombin Time (Protime)PT. 14.9 SECONDS (11.7-14.9)
[2018-04-01 06:26] LABS: Absolute Lymphocyte Count 0.55 X10^3/ul (0.83-4.51); Absolute Neutrophil Count 13.8 X10^3/uL (2.0-7.7); Basophil# 0.02 X10^3/uL; Basophil% 0.1 % (0-1); Hematocrit 30.2 % (37-47); Hemoglobin 10.3 g/dl (12.0-15.0); Lymphocyte # 0.55 X10^3/ul (4.0); Lymphocyte % 3.6 % (19-41); Mean Corp Hgb Conc 34.1 g/gl (32-36); Mean Corpuscular Hgb 29.5 pg (27.0-32.0); Mean Corpuscular Volume 86.5 fL (81-99); Mean Platelet Vol. 10.6 fl (6.2-12.0); Monocyte# 0.78 X10^3/uL; Monocyte% 5.1 % (0-10); Neutrophil # 13.81 X10^3/uL (2.7-7.7); Neutrophil % 89.8 % (47-70); Platelet Count 292 K/mm3 (150-450); RBC Distribution Width CV 13.4 % (11.6-14.6); Red Blood Count 3.49 M/mm3 (4.2-5.4); White Blood Count 15.4 K/mm3 (4.4-11.0)
[2018-04-01 06:31] LABS: Anion Gap 7 (5-15); BUN 24 mg/dL (7-18); BUN/Creat Ratio 21.8 RATIO (10-20); Calcium,Total 8.1 mg/dL (8.5-10.1); Chloride 105 mmol/L (98-107); Differential Indicated SCAN CRITERIA MET; EST Glomerular Filtration Rate 51 mL/min (>60); Est Glom Filt Rate - Afr Amer 61 mL/min (>60); Estimated Creatinine Clearance 35.22 ml/min; Glucose 121 mg/dL (74-106); POSITIVE COUNT NO; POSITIVE DIFFERENTIAL YES; POSITIVE MORPHOLOGY NO; Potassium 3.7 mmol/L (3.5-5.1); Sodium Level 134 mmol/L (136-145)
[2018-04-01] MEDS: 0.9% NaCl Peripheral Flush Adult/Peds IV ×2 (06:42)
[2018-04-01] MEDS: Levothyroxine 137 MCG Tablet PO (06:43)
[2018-04-01] MEDS: Ipratropium 0.5 MG/2.5 ML SOLUTION INHALATION ×4 (06:51→19:31)
[2018-04-01 07:06] LABS: Bedside Glucose 115 mg/dL (70-110)
[2018-04-01] MEDS: predniSONE 20 MG Tablet PO (08:08)
[2018-04-01] MEDS: amLODIPine 5 MG Tablet PO (08:08)
[2018-04-01] MEDS: Isosorbide Mononitrate 30 MG Tablet PO (08:10)
[2018-04-01] MEDS: Lubiprostone 24 MCG Capsule PO (08:10)
[2018-04-01] MEDS: Metoprolol(XL)Succ 50 MG Tablet PO (08:10)
[2018-04-01] MEDS: Aspirin 81 MG TAB.CHEW PO (08:10)
[2018-04-01] MEDS: guaiFENesin 1,200 MG Tablet 1200 MG PO ×2 (08:10→22:21)
[2018-04-01 09:44] LABS: T4 Free Direct 1.35 ng/dL (0.76-1.46)
[2018-04-01 10:56] LABS: Free T3 < 0.5 pg/mL (2.18-3.98)
--- NOTE | 2018-04-01 11:43 | PCM.PROGNOTE ---
<Anish Villanueva - Last Filed: 04/01/18 11:43> Patient Problems: Active and Suspected Problems (Last Reviewed 03/31/18 @ 13:40 by Kel Romo DO) Pneumonia (Acute) SVT (supraventricular tachycardia) (Acute) Sepsis (Acute) Subjective: Pt continues to have cough and dyspnea even at rest with conversation. Speaking only a few words at a time. She has continued to have black diarrhea overnight. Her blood thinners have been stopped and stool occult blood was sent which was +, C diff neg. She has no palpitations though has continued to have short runs of SVT on the monitor. No CP. She is mildly confused. She could not remember how long she has been here thinking it has been several days (came yesterday) and thought she called and ordered breakfast (she never ordered it). - Physical Exam General: Alert, Oriented x3, Cooperative, Confused HEENT: Atraumatic, PERRLA, EOMI, Normocephalic Neck: Supple, No JVD, Negative Carotid Bruits Lungs: Diminished, Rales - Left side Cardiovascular: Regular rate, No murmurs Abdomen: Bowel Sounds Present, Soft, Non Tender Extremities: No edema, Capillary Refill Less than 3 Seconds Skin: No rashes, No breakdown Musculoskeletal: No Tenderness to Palpation of Joints or Extremities Neurological: Cranial nerves II-XII grossly intact Psych/Mental Status: Normal Affect, Appropriate Vital Signs Temp Pulse Resp BP Pulse Ox 98.9 F 86 19 H 130/87 H 99 04/01/18 08:16 04/01/18 11:18 04/01/18 11:18 04/01/18 08:16 04/01/18 08:16 Oxygen Flow Rate (L/min) 2 Oxygen Delivery Method Nasal Cannula Weight: 80.1 kg Body Mass Index (BMI) 30.3 Intake and Output for Last 24 Hours 03/30/18 03/31/18 04/01/18 23:59 23:59 23:59 Intake Total 1427.3 / 1427.3 1220 / 1220 Output Total 250 / 250 Balance 1177.3 / 1177.3 1220 / 1220 Microbiology Past 72 Hours 03/31/18 23:50 Streptococcus pneumoniae Antigen (M - Final Urine, Random 03/31/18 23:50 Legionella Antigen - Final Urine, Random Legionella Antigen 03/31/18 23:50 Stool Occult Blood (HUBERT) - Final Stool Occult Blood Positive 03/31/18 16:15 C. difficile DNA Amplification - Final Stool Laboratory Tests Past 24 Hrs 03/31/18 04/01/18 04/01/18 15:00 05:35 05:35 WBC RBC Hgb Hct MCV MCH MCHC RDW RDW Differential Plt Count MPV Immature Gran % (Auto) Neut % (Auto) Lymph % (Auto) [place] % (Auto) Eos % (Auto) Baso % (Auto) Absolute Neuts (auto) Absolute Lymphs (auto) Total Counted PT 14.9 INR 1.2 Sodium 134 L Potassium 3.7 Chloride 105 Carbon Dioxide 22.0 Anion Gap 7 BUN 24 H Creatinine 1.10 H Estim Creat Clear Calc 35.22 Est GFR (MDRD) Af Amer 61 Est GFR (MDRD) Non-Af 51 L BUN/Creatinine Ratio 21.8 H Glucose 121 H Calcium 8.1 L Free T4 Free T3 pg/dL Urine Color Yellow Urine Clarity Clear Urine pH 5.0 Ur Specific [place] 1.015 Urine Protein 100 H Urine Glucose (UA) 100 H Urine Ketones Negative Urine Occult Blood 150 H Urine Nitrite Negative Urine Bilirubin Negative Urine Urobilinogen Normal Ur Leukocyte Esterase 25 H Urine RBC 0 SEEN Urine WBC 0-5 SEEN Ur Squamous Epith Cells 5-10 SEEN Amorphous Sediment 2+ Urine Bacteria 1+ Coarse Granular Casts 0-5 SEEN Urine Mucus 0 SEEN 04/01/18 04/01/18 04/01/18 05:35 05:35 05:35 WBC 15.4 H RBC 3.49 L Hgb 10.3 L Hct 30.2 L MCV 86.5 MCH 29.5 MCHC 34.1 RDW 13.4 RDW Differential 41.0 Plt Count 292 MPV 10.6 Immature Gran % (Auto) 1.400 H Neut % (Auto) 89.8 H Lymph % (Auto) 3.6 L [place] % (Auto) 5.1 Eos % (Auto) 0.0 Baso % (Auto) 0.1 Absolute Neuts (auto) 13.8 H Absolute Lymphs (auto) 0.55 L Total Counted Not Reportable PT INR Sodium Potassium Chloride Carbon Dioxide Anion Gap BUN Creatinine Estim Creat Clear Calc Est GFR (MDRD) Af Amer Est GFR (MDRD) Non-Af BUN/Creatinine Ratio Glucose Calcium Free T4 1.35 Free T3 pg/dL < 0.5 L Urine Color Urine Clarity Urine pH Ur Specific [place] Urine Protein Urine Glucose (UA) Urine Ketones Urine Occult Blood Urine Nitrite Urine Bilirubin Urine Urobilinogen Ur Leukocyte Esterase Urine RBC Urine WBC Ur Squamous Epith Cells Amorphous Sediment Urine Bacteria Coarse Granular Casts Urine Mucus POC Glucose 04/01/18 03/31/18 03/31/18 06:58 21:37 16:25 POC Glucose 115 H 214 H 253 H 03/31/18 11:09 POC Glucose 226 H Medical Necessity - Tobacco Use Smoking Status: Former smoker Tobacco Use: Non-smoker Assessment/Plan All Active Problems (Last Reviewed 03/31/18 @ 13:40 by Kel Romo DO) Pneumonia (Acute) SVT (supraventricular tachycardia) (Acute) Sepsis (Acute) Chest pain (Acute) 1. Acute sepsis 2/2 left sided CAP - Legionella antigen positive. Changed abx to levaquin only. Continue PEP, IS, atrovent, mucinex. 2. SVT 2/2 sepsis - maintain on tele. resolved without intervention. Continues to have short runs. 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 Continue beta blockers. TSH low but T4 normal. T3 is low. 3. Dehydration - improved. IV fluids x 1 more day. 4. Diarrhea with black stools - blood thinning agents stopped. + hemoccult. Trend Hgb. Protonix started. Will need outpatient GI referral. If Hgb declines further will need gen surgery consult. At this point no need for transfusion. 5. Acute metabolic encephalopathy 2/2 sepsis - pt remains mildly confused. 6. DMt2 - hold orals, SSI 7. CAD - prior CABG/stents, pt of Dr. Bonilla - continue statin, beta liana, plavix, imdur, arb. Troponin is neg. EKG with sinus tach 8. Hypothyroid - synthroid. TSH and T3 low, T4 normal. 9. HTN - stable. DVT ppx: SCDs. chemoppx contraindicated. DC planning: ptot This patient was seen by Anish Villanueva PA-C under the supervision of Doctor Cecille <Catrachito Oden - Last Filed: 04/01/18 13:21> - Physical Exam Vital Signs Temp Pulse Resp BP Pulse Ox 98.9 F 86 19 H 130/87 H 99 07/04/18 08:16 04/01/18 11:18 04/01/18 11:18 04/01/18 08:16 04/01/18 08:16 Oxygen Flow Rate (L/min) 2 Oxygen Delivery Method Nasal Cannula Weight: 80.1 kg Body Mass Index (BMI) 30.3 Intake and Output for Last 24 Hours 03/30/18 03/31/18 04/01/18 23:59 23:59 23:59 Intake Total 1427.3 / 1427.3 2221 2222 Output Total 250 / 250 Balance 1177.3 / 1177.3 2221 Microbiology Past 72 Hours 03/31/18 23:50 Streptococcus pneumoniae Antigen (M - Final Urine, Random 03/31/18 23:50 Legionella Antigen - Final Urine, Random Legionella Antigen 03/31/18 23:50 Stool Occult Blood (HUBERT) - Final Stool Occult Blood Positive 03/31/18 16:15 C. difficile DNA Amplification - Final Stool Laboratory Tests Past 24 Hrs 03/31/18 04/01/18 04/01/18 15:00 05:35 05:35 WBC RBC Hgb Hct MCV MCH MCHC RDW RDW Differential Plt Count MPV Immature Gran % (Auto) Neut % (Auto) Lymph % (Auto) [place] % (Auto) Eos % (Auto) Baso % (Auto) Absolute Neuts (auto) Absolute Lymphs (auto) Total Counted PT 14.9 INR 1.2 Sodium 134 L Potassium 3.7 Chloride 105 Carbon Dioxide 22.0 Anion Gap 7 BUN 24 H Creatinine 1.10 H Estim Creat Clear Calc 35.22 Est GFR (MDRD) Af Amer 61 Est GFR (MDRD) Non-Af 51 L BUN/Creatinine Ratio 21.8 H Glucose 121 H Calcium 8.1 L Free T4 Free T3 pg/dL Urine Color Yellow Urine Clarity Clear Urine pH 5.0 Ur Specific [place] 1.015 Urine Protein 100 H Urine Glucose (UA) 100 H Urine Ketones Negative Urine Occult Blood 150 H Urine Nitrite Negative Urine Bilirubin Negative Urine Urobilinogen Normal Ur Leukocyte Esterase 25 H Urine RBC 0 SEEN Urine WBC 0-5 SEEN Ur Squamous Epith Cells 5-10 SEEN Amorphous Sediment 2+ Urine Bacteria 1+ Coarse Granular Casts 0-5 SEEN Urine Mucus 0 SEEN 04/01/18 04/01/18 04/01/18 05:35 05:35 05:35 WBC 15.4 H RBC 3.49 L Hgb 10.3 L Hct 30.2 L MCV 86.5 MCH 29.5 MCHC 34.1 RDW 13.4 RDW Differential 41.0 Plt Count 292 MPV 10.6 Immature Gran % (Auto) 1.400 H Neut % (Auto) 89.8 H Lymph % (Auto) 3.6 L [place] % (Auto) 5.1 Eos % (Auto) 0.0 Baso % (Auto) 0.1 Absolute Neuts (auto) 13.8 H Absolute Lymphs (auto) 0.55 L Total Counted Not Reportable PT INR Sodium Potassium Chloride Carbon Dioxide Anion Gap BUN Creatinine Estim Creat Clear Calc Est GFR (MDRD) Af Amer Est GFR (MDRD) Non-Af BUN/Creatinine Ratio Glucose Calcium Free T4 1.35 Free T3 pg/dL < 0.5 L Urine Color Urine Clarity Urine pH Ur Specific [place] Urine Protein Urine Glucose (UA) Urine Ketones Urine Occult Blood Urine Nitrite Urine Bilirubin Urine Urobilinogen Ur Leukocyte Esterase Urine RBC Urine WBC Ur Squamous Epith Cells Amorphous Sediment Urine Bacteria Coarse Granular Casts Urine Mucus POC Glucose 04/01/18 04/01/18 03/31/18 11:58 06:58 21:37 POC Glucose 175 H 115 H 214 H 03/31/18 16:25 POC Glucose 253 H Assessment/Plan This patient was seen in conjunction with Anish Villanueva PA-C. I have independently interviewed and examined the patient and reviewed pertinent historical, laboratory, and other data. Please refer to Anish Villanueva PA-C note for details of this patient's presentation, findings, and recommendations. I have reviewed Anish Villanueva PA-C note and concur with documented findings. In brief, patient is an 82-year-old lady admitted with progressive shortness of breath and assessment of pneumonia secondary to Legionella made admitted to a monitored bed where patient has since been managed Physical Examination: GENERAL: Appears ill looking HEENT: Clear conjunctiva, NECK; supple, normal thyroid, CHEST: Diminished to auscultation bilaterally, HEART: Regular S1 S2, no audible murmurs ABDOMEN: soft, normoactive bowel sounds, SLOT SUPERVISOR: Awake; no lateralizing signs. SKIN: No Rash Assessment: 1. Sepsis secondary to pneumonia due to Legionella 2. SVT 3. Dehydration 4. Diarrhea 5. Acute infectious encephalopathy 6. Diabetes mellitus type 2 7. CAD with previous CABG and subsequent stent placement 8. Hypertension 9. Hypothyroidism next para 10. DVT prophylaxis SCDs for now held off with chemoprophylaxis in view of patient melenic stools Recommendations: 1. I have discussed the results of my overview and impressions with the patient 2. Options for management were reviewed Code Visit Inpatient E&M: 38784 Subs Hosp L3
[2018-04-01 12:05] LABS: Bedside Glucose 175 mg/dL (70-110)
[2018-04-01] MEDS: Insulin Lispro 100 UNIT/ML INSULN.PEN SQ (12:36)
[2018-04-01] MEDS: Acetaminophen 500 MG Tablet 1000 MG PO ×2 (13:49→22:21)
[2018-04-01 16:46] LABS: Bedside Glucose 145 mg/dL (70-110)
[2018-04-01] MEDS: Atorvastatin Calcium 20 MG Tablet 40 MG PO (22:21)
[2018-04-01 22:36] LABS: Bedside Glucose 205 mg/dL (70-110)
--- NOTE | 2018-04-01 23:49 | NURSING ---
Unable to score an NIH or take vital signs on pt at this time as pt is exhibiting hostile behavior while being repositioned in bed. Pt has been given IM Haldol. If pt calms down with the Haldol, an attempt will be made to obtain an NIHSS score and vital signs.
[2018-04-02] VITALS (12 sets, daily range): BP systolic 110–137; BP diastolic 58–69; PULSE 48–85; RESP 16–20; TEMP 36.2–36.8; O2SAT 93–96
[2018-04-02] MEDS: 0.9% Normal Saline 1,000 ML 100 ML IV (02:15)
[2018-04-02 05:54] LABS: Absolute Lymphocyte Count 0.69 X10^3/ul (0.83-4.51); Basophil# 0.03 X10^3/uL; Basophil% 0.3 % (0-1); Hematocrit 30.7 % (37-47); Hemoglobin 10.1 g/dl (12.0-15.0); Lymphocyte # 0.69 X10^3/ul (4.0); Lymphocyte % 5.8 % (19-41); Mean Corp Hgb Conc 32.9 g/gl (32-36); Mean Corpuscular Hgb 28.6 pg (27.0-32.0); Mean Platelet Vol. 10.6 fl (6.2-12.0); Monocyte# 0.99 X10^3/uL; Monocyte% 8.3 % (0-10); Neutrophil # 10.04 X10^3/uL (2.7-7.7); Neutrophil % 84.3 % (47-70); Platelet Count 307 K/mm3 (150-450); RBC Distribution Width CV 13.9 % (11.6-14.6); RBC Distribution Width SD 42.9 fl (35.1-43.9); Red Blood Count 3.53 M/mm3 (4.2-5.4); White Blood Count 11.9 K/mm3 (4.4-11.0)
[2018-04-02] MEDS: Acetaminophen 500 MG Tablet 1000 MG PO ×2 (05:59→14:56)
[2018-04-02] MEDS: Levothyroxine 137 MCG Tablet PO (05:59)
[2018-04-02 06:04] LABS: POSITIVE COUNT NO; POSITIVE DIFFERENTIAL NO; POSITIVE MORPHOLOGY NO
[2018-04-02 06:30] LABS: Anion Gap 9 (5-15); BUN 22 mg/dL (7-18); BUN/Creat Ratio 23.8 RATIO (10-20); Calcium,Total 7.6 mg/dL (8.5-10.1); Chloride 107 mmol/L (98-107); Creatinine, Serum 0.92 mg/dL (0.55-1.02); EST Glomerular Filtration Rate 62 mL/min (>60); Est Glom Filt Rate - Afr Amer 75 mL/min (>60); Estimated Creatinine Clearance 42.12 ml/min; Glucose 125 mg/dL (74-106); Magnesium 1.9 mg/dL (1.6-2.6); Potassium 3.6 mmol/L (3.5-5.1); Sodium Level 137 mmol/L (136-145)
[2018-04-02] MEDS: Ipratropium 0.5 MG/2.5 ML SOLUTION INHALATION ×2 (06:56→11:05)
[2018-04-02 07:06] LABS: Bedside Glucose 117 mg/dL (70-110)
[2018-04-02] MEDS: predniSONE 20 MG Tablet PO (08:27)
[2018-04-02] MEDS: guaiFENesin 1,200 MG Tablet 1200 MG PO (09:19)
[2018-04-02] MEDS: Isosorbide Mononitrate 30 MG Tablet PO (09:19)
[2018-04-02] MEDS: amLODIPine 5 MG Tablet PO (09:20)
[2018-04-02] MEDS: Metoprolol(XL)Succ 50 MG Tablet PO (09:20)
[2018-04-02] MEDS: Insulin Lispro 100 UNIT/ML INSULN.PEN SQ (11:24)
[2018-04-02 11:31] LABS: Bedside Glucose 197 mg/dL (70-110)
--- NOTE | 2018-04-02 12:24 | PCM.DC ---
- Discharge Diagnoses Current Active Problems: Current Active and Chronic Problems (Last Reviewed 03/31/18 @ 13:40 by Kel Romo DO) DM2 (diabetes mellitus, type 2) (Chronic) Pneumonia (Acute) SVT (supraventricular tachycardia) (Acute) Sepsis (Acute) You will use the following diet at home:: Calorie/Carbohydrate Controlled (specify 1200, 1400, etc), Cardiac Discharge Activity: Return to Normal Activity Call your doctor if you observe: Shortness of breath, Dizziness, Fainting spells, Chest pain Additional Instructions: You will stop taking your aspirin and Plavix until further evaluated as outpatient. You were referred to Dr. Felder for futher evaluation of blood in stool. Please call to make an appointment. You can call to schedule [phone]. Allergies/Adverse Reactions: Allergies No Known Allergies Allergy (Verified 03/31/18 07:21) Medications to take at Discharge Levothyroxine [Synthroid] 137 mcg PO DAILY 10/13/13 Potassium Chloride [Klor-Con 10] 20 meq PO DAILY 10/13/13 Nitroglycerin [Nitrostat] 0.4 mg SUBLINGUAL Q5M PRN 12/21/13 metoprolol succinate ER 50 mg tablet,extended release 24 hr 50 mg PO DAILY #90 tab 10/14/17 isosorbide mononitrate ER 30 mg tablet,extended release 24 hr 30 mg PO QAM #90 tab 10/28/17 ergocalciferol (vitamin D2) 50,000 unit capsule 50,000 unit PO QMONTH 11/18/17 atorvastatin 20 mg tablet 40 mg PO QHS tab 11/24/17 Acetaminophen [Tylenol] 1,000 mg PO TID 03/31/18 Amlodipine [Norvasc] 5 mg PO DAILY 03/31/18 Baclofen [Lioresal] 10 mg PO QHS 03/31/18 Glipizide/Metformin HCl [Glipizide-Metformin 2.5-500 mg] 2 each PO BID 03/31/18 Insulin Glargine,Hum.rec.anlog [Barron Eisenberg] 27 unit SQ QHS 03/31/18 Lubiprostone [Amitiza] 24 mcg PO BID 03/31/18 Prednisone 30 mg PO DAILY 03/31/18 Valsartan/Hydrochlorothiazide [Valsartan-Hctz 320-25 mg Tab] 1 each PO DAILY 03/31/18 Levofloxacin [Levaquin] 750 mg PO DAILY #5 tab 04/02/18 Pantoprazole Sodium [Protonix] 40 mg PO DAILY #30 tab 04/02/18 The following prescriptions were given: Levofloxacin [Levaquin] 750 mg PO DAILY #5 tab Pantoprazole Sodium [Protonix] 40 mg PO DAILY #30 tab Primary Care Physician: Brian Degroot Chi, MD [Primary Care Provider] - Please follow up with your Primary Care Physician in: 1 Week Test Results: Please Follow Up With: Robert Bonilla MD When: 1 Week Please Follow Up With: Erendira Bo DO When: As scheduled Please Follow Up With: Raymond Felder MD Proposed Discharge Date: 04/02/18
--- NOTE | 2018-04-02 12:36 | DCINST_ITS ---
- Discharge Diagnoses Current Active Problems: Current Active and Chronic Problems (Last Reviewed 03/31/18 @ 13:40 by Kel Romo DO) DM2 (diabetes mellitus, type 2) (Chronic) Pneumonia (Acute) SVT (supraventricular tachycardia) (Acute) Sepsis (Acute) You will use the following diet at home:: Calorie/Carbohydrate Controlled ( specify 1200, 1400, etc), Cardiac Discharge Activity: Return to Normal Activity Call your doctor if you observe: Shortness of breath, Dizziness, Fainting spells , Chest pain Additional Instructions: You will stop taking your aspirin and Plavix until further evaluated as outpatient. You were referred to Dr. Felder for futher evaluation of blood in stool. Please call to make an appointment. You can call to schedule [phone]. Allergies/Adverse Reactions: Allergies No Known Allergies Allergy (Verified 03/31/18 07:21) Medications to take at Discharge Levothyroxine [Synthroid] 137 mcg PO DAILY 10/13/13 Potassium Chloride [Klor-Con 10] 20 meq PO DAILY 10/13/13 Nitroglycerin [Nitrostat] 0.4 mg SUBLINGUAL Q5M PRN 12/21/13 metoprolol succinate ER 50 mg tablet,extended release 24 hr 50 mg PO DAILY #90 tab 10/14/17 isosorbide mononitrate ER 30 mg tablet,extended release 24 hr 30 mg PO QAM #90 tab 10/28/17 ergocalciferol (vitamin D2) 50,000 unit capsule 50,000 unit PO QMONTH 11/18/17 atorvastatin 20 mg tablet 40 mg PO QHS tab 11/24/17 Acetaminophen [Tylenol] 1,000 mg PO TID 03/31/18 Amlodipine [Norvasc] 5 mg PO DAILY 03/31/18 Baclofen [Lioresal] 10 mg PO QHS 03/31/18 Glipizide/Metformin HCl [Glipizide-Metformin 2.5-500 mg] 2 each PO BID 03/31/18 Insulin Glargine,Hum.rec.anlog [Barron Eisenberg] 27 unit SQ QHS 03/31/18 Lubiprostone [Amitiza] 24 mcg PO BID 03/31/18 Prednisone 30 mg PO DAILY 03/31/18 Valsartan/Hydrochlorothiazide [Valsartan-Hctz 320-25 mg Tab] 1 each PO DAILY 12/14 Levofloxacin [Levaquin] 750 mg PO DAILY #5 tab 04/02/18 Pantoprazole Sodium [Protonix] 40 mg PO DAILY #30 tab 04/02/18 The following prescriptions were given: Levofloxacin [Levaquin] 750 mg PO DAILY #5 tab Pantoprazole Sodium [Protonix] 40 mg PO DAILY #30 tab Primary Care Physician: Brian Degroot Chi, MD [Primary Care Provider] - Please follow up with your Primary Care Physician in: 1 Week Test Results: Please Follow Up With: Robert Bonilla MD When: 1 Week Please Follow Up With: Erendira Bo DO When: As scheduled Please Follow Up With: Raymond Felder MD Proposed Discharge Date: 04/02/18
--- NOTE | 2018-04-02 12:39 | PCM.DC.SUM ---
<Lillian Dobson - Last Filed: 04/02/18 12:51> Discharge Date and Diagnosis Date of Admission: 03/31/18 Date of Discharge: 04/02/18 - Primary Discharge Diagnosis Active and Suspected Problems (Last Reviewed 03/31/18 @ 13:40 by Kel Romo DO) 1. Acute sepsis secondary to left-sided community-acquired pneumonia 2. SVT secondary to sepsis-resolved without intervention 3. Mild dehydration 4. Acute metabolic encephalopathy secondary to #1 5. Mild normochromic normocytic anemia with stool positive for occult blood - Secondary Discharge Diagnosis Chronic Problems (Last Reviewed 03/31/18 @ 13:40 by Kel Romo DO) DM2 (diabetes mellitus, type 2) (Chronic) CAD (coronary artery disease) (Chronic) HLD (hyperlipidemia) (Chronic) TIA (transient ischemic attack) (Chronic) History of percutaneous transluminal coronary angioplasty (Chronic) PTCA with Taxus stent to SVG to OM, 2005 - 03/05/10 PTCA/stent ([place]) to proximal to mod SVG to 2nd obtuse marginal artery - Successful angioplasty & Promus [place] PCI @ [facility] stent SVG-OM 01/10 Aortocoronary bypass status (Chronic) CABG SVG to DG, OM & RCA Carotid bruit (Chronic) Coronary atherosclerosis of [place] coronary artery (Chronic) Hypertension (Chronic) Hospital Course and Treatment Imaging Results: Diagnostic Data Chest X-Ray 03/31/18 07:37 IMPRESSION: Left pulmonary infiltrates with blunting of the left costophrenic angle. Radiographic follow-up is recommended. Electronically Signed: Farzad Banks MD at 7:57 EDT Tel [phone], Service support , Operations: None Procedures: None Summary of Care Provided: The patient is a 82 year old F admitted 03/31/2018 due to diarrhea. She has a past medical history of hypertension, CAD status post CABG and PTCA, TIA, hyperlipidemia, type 2 diabetes mellitus, chronic kidney disease. Stool negative for C. difficile. Patient has not had further diarrhea. Patient was noted to have occult blood positive stool. Her hemoglobin has remained stable and she did not require transfusion. She was started on Protonix 40 mg daily which she will continue at discharge. Follow-up with surgery as outpatient for further evaluation. Her aspirin and Plavix was held and she was instructed to continue to hold at discharge until further notified. Patient was found to have acute sepsis secondary to left-sided community-acquired pneumonia with positive Legionella antigen. Patient treated with IV Levaquin and will continue oral Levaquin 750 mg daily for 5 more days. Oxygen is now stable on room air. Acute metabolic encephalopathy secondary to sepsis resolved. Patient found to have transient episodes of SVT, suspected secondary to sepsis. Patient follows with Dr. Bonilla. She will continue home beta-liana regimen. Mild dehydration resolved with IV fluids. Other chronic medical conditions as noted above are stable at this time. Patient is stable for discharge home with further follow-up with primary care physician, cardiology, nephrology and surgery. Patient seen exam prior to discharge. Alert, oriented, no acute distress. Lungs clear, diminished. Heart rate regular in rate, no murmurs. Abdomen soft, nontender. No edema. Skin intact. Neuro grossly intact. Vital signs stable. This patient was seen by PORFIRIO Liu under the supervision of Dr. Oden. Discharge Diet: Carb Control Diet Discharge Activity: Return to Normal Activity Call your doctor if you observe: Shortness of breath, Dizziness, Fainting spells, Chest pain Home Medications: Medications to take at Discharge Levothyroxine [Synthroid] 137 mcg PO DAILY 10/13/13 Potassium Chloride [Klor-Con 10] 20 meq PO DAILY 10/13/13 Nitroglycerin [Nitrostat] 0.4 mg SUBLINGUAL Q5M PRN 12/21/13 metoprolol succinate ER 50 mg tablet,extended release 24 hr 50 mg PO DAILY #90 tab 10/14/17 isosorbide mononitrate ER 30 mg tablet,extended release 24 hr 30 mg PO QAM #90 tab 10/28/17 ergocalciferol (vitamin D2) 50,000 unit capsule 50,000 unit PO QMONTH 11/18/17 atorvastatin 20 mg tablet 40 mg PO QHS tab 11/24/17 Acetaminophen [Tylenol] 1,000 mg PO TID 03/31/18 Amlodipine [Norvasc] 5 mg PO DAILY 03/31/18 Baclofen [Lioresal] 10 mg PO QHS 03/31/18 Glipizide/Metformin HCl [Glipizide-Metformin 2.5-500 mg] 2 each PO BID 03/31/18 Insulin Glargine,Hum.rec.anlog [Barron Eisenberg] 27 unit SQ QHS 03/31/18 Lubiprostone [Amitiza] 24 mcg PO BID 03/31/18 Prednisone 30 mg PO DAILY 03/31/18 Valsartan/Hydrochlorothiazide [Valsartan-Hctz 320-25 mg Tab] 1 each PO DAILY 03/31/18 Levofloxacin [Levaquin] 750 mg PO DAILY #5 tab 04/02/18 Pantoprazole Sodium [Protonix] 40 mg PO DAILY #30 tab 04/02/18 Following Prescrptions Were Given to Patient: Levofloxacin [Levaquin] 750 mg PO DAILY #5 tab Pantoprazole Sodium [Protonix] 40 mg PO DAILY #30 tab Primary Care Physician: Brian Degroot Chi, MD [Primary Care Provider] - Please follow up with your Primary Care Physician in: 1 Week Please Follow Up With: Robert Bonilla MD When: 1 Week Please Follow Up With: Erendira Bo DO When: As scheduled Please Follow Up With: Raymond Felder MD - [phone] When: 1 Week Disposition: Home Minutes spent on discharge:: 35 Patient Condition:: Stable Medical Necessity - Tobacco Use Smoking Status: Former smoker Tobacco Use: Non-smoker Meaningful Use Info Meaningful Use Diagnoses (Choose all that apply): None applicable <Catrachito Oden - Last Filed: 04/02/18 13:12> Discharge Date and Diagnosis - Secondary Discharge Diagnosis Chronic Problems (Last Reviewed 03/31/18 @ 13:40 by Kel Romo DO) DM2 (diabetes mellitus, type 2) (Chronic) CAD (coronary artery disease) (Chronic) HLD (hyperlipidemia) (Chronic) TIA (transient ischemic attack) (Chronic) History of percutaneous transluminal coronary angioplasty (Chronic) PTCA with Taxus stent to SVG to OM, 2005 - 03/05/10 PTCA/stent ([place]) to proximal to mod SVG to 2nd obtuse marginal artery - Successful angioplasty & Promus [place] PCI @ [facility] stent SVG-OM 01/10 Aortocoronary bypass status (Chronic) CABG SVG to DG, OM & RCA Carotid bruit (Chronic) Coronary atherosclerosis of [place] coronary artery (Chronic) Hypertension (Chronic) Hospital Course and Treatment Summary of Care Provided: In brief, patient is an 82-year-old lady admitted with progressive shortness of breath and assessment of pneumonia secondary to Legionella made admitted to a monitored bed where patient has since been managed Assessment: 1. Sepsis secondary to pneumonia due to Legionella 2. SVT 3. Dehydration 4. Diarrhea 5. Acute infectious encephalopathy 6. Diabetes mellitus type 2 7. CAD with previous CABG and subsequent stent placement 8. Hypertension 9. Hypothyroidism next para 10. DVT prophylaxis SCDs for now held off with chemoprophylaxis in view of patient melenic stools Hospital course; elicited above by Lillian Dobson NPC Code Visit Inpatient E&M: [id number] Disch Hosp
--- NOTE | 2018-04-02 12:50 | DS.PCM_ITS ---
<Lillian Dobson - Last Filed: 04/02/18 12:51> Discharge Date and Diagnosis Date of Admission: 03/31/18 Date of Discharge: 04/02/18 - Primary Discharge Diagnosis Active and Suspected Problems (Last Reviewed 03/31/18 @ 13:40 by Kel Romo DO) 1. Acute sepsis secondary to left-sided community-acquired pneumonia 2. SVT secondary to sepsis-resolved without intervention 3. Mild dehydration 4. Acute metabolic encephalopathy secondary to #1 5. Mild normochromic normocytic anemia with stool positive for occult blood - Secondary Discharge Diagnosis Chronic Problems (Last Reviewed 03/31/18 @ 13:40 by Kel Romo DO) DM2 (diabetes mellitus, type 2) (Chronic) CAD (coronary artery disease) (Chronic) HLD (hyperlipidemia) (Chronic) TIA (transient ischemic attack) (Chronic) History of percutaneous transluminal coronary angioplasty (Chronic) PTCA with Taxus stent to SVG to OM, 2005 - 03/05/10 PTCA/stent ([facility]ESSICA) to proximal to mod SVG to 2nd obtuse marginal artery - Successful angioplasty & Promus [place] PCI @ [facility] stent SVG-OM 01/10 Aortocoronary bypass status (Chronic) CABG SVG to DG, OM & RCA Carotid bruit (Chronic) Coronary atherosclerosis of [place] coronary artery (Chronic) Hypertension (Chronic) Hospital Course and Treatment Imaging Results: Diagnostic Data Chest X-Ray 03/31/18 07:37 IMPRESSION: Left pulmonary infiltrates with blunting of the left costophrenic angle. Radiographic follow-up is recommended. Electronically Signed: Farzad Banks MD at 7:57 EDT Tel [phone], Service support , Operations: None Procedures: None Summary of Care Provided: The patient is a 82 year old F admitted 03/31/2018 due to diarrhea. She has a past medical history of hypertension, CAD status post CABG and PTCA, TIA, hyperlipidemia, type 2 diabetes mellitus, chronic kidney disease. Stool negative for C. difficile. Patient has not had further diarrhea. Patient was noted to have occult blood positive stool. Her hemoglobin has remained stable and she did not require transfusion. She was started on Protonix 40 mg daily which she will continue at discharge. Follow-up with surgery as outpatient for further evaluation. Her aspirin and Plavix was held and she was instructed to continue to hold at discharge until further notified. Patient was found to have acute sepsis secondary to left-sided community-acquired pneumonia with positive Legionella antigen. Patient treated with IV Levaquin and will continue oral Levaquin 750 mg daily for 5 more days. Oxygen is now stable on room air. Acute metabolic encephalopathy secondary to sepsis resolved. Patient found to have transient episodes of SVT, suspected secondary to sepsis. Patient follows with Dr. Bonilla. She will continue home beta-liana regimen. Mild dehydration resolved with IV fluids. Other chronic medical conditions as noted above are stable at this time. Patient is stable for discharge home with further follow-up with primary care physician, cardiology, nephrology and surgery. Patient seen exam prior to discharge. Alert, oriented, no acute distress. Lungs clear, diminished. Heart rate regular in rate, no murmurs. Abdomen soft , nontender. No edema. Skin intact. Neuro grossly intact. Vital signs stable. This patient was seen by PORFIRIO Liu under the supervision of Dr. Oden. Discharge Diet: Carb Control Diet Discharge Activity: Return to Normal Activity Call your doctor if you observe: Shortness of breath, Dizziness, Fainting spells , Chest pain Home Medications: Medications to take at Discharge Levothyroxine [Synthroid] 137 mcg PO DAILY 10/13/13 Potassium Chloride [Klor-Con 10] 20 meq PO DAILY 10/13/13 Nitroglycerin [Nitrostat] 0.4 mg SUBLINGUAL Q5M PRN 12/21/13 metoprolol succinate ER 50 mg tablet,extended release 24 hr 50 mg PO DAILY #90 tab 10/14/17 isosorbide mononitrate ER 30 mg tablet,extended release 24 hr 30 mg PO QAM #90 tab 10/28/17 ergocalciferol (vitamin D2) 50,000 unit capsule 50,000 unit PO QMONTH 11/18/17 atorvastatin 20 mg tablet 40 mg PO QHS tab 11/24/17 Acetaminophen [Tylenol] 1,000 mg PO TID 03/31/18 Amlodipine [Norvasc] 5 mg PO DAILY 03/31/18 Baclofen [Lioresal] 10 mg PO QHS 03/31/18 Glipizide/Metformin HCl [Glipizide-Metformin 2.5-500 mg] 2 each PO BID 03/31/18 Insulin Glargine,Hum.rec.anlog [Barron Eisenberg] 27 unit SQ QHS 03/31/18 Lubiprostone [Amitiza] 24 mcg PO BID 03/31/18 Prednisone 30 mg PO DAILY 03/31/18 Valsartan/Hydrochlorothiazide [Valsartan-Hctz 320-25 mg Tab] 1 each PO DAILY 12/14 Levofloxacin [Levaquin] 750 mg PO DAILY #5 tab 04/02/18 Pantoprazole Sodium [Protonix] 40 mg PO DAILY #30 tab 04/02/18 Following Prescrptions Were Given to Patient: Levofloxacin [Levaquin] 750 mg PO DAILY #5 tab Pantoprazole Sodium [Protonix] 40 mg PO DAILY #30 tab Primary Care Physician: Brian Degroot Chi, MD [Primary Care Provider] - Please follow up with your Primary Care Physician in: 1 Week Please Follow Up With: Robert Bonilla MD When: 1 Week Please Follow Up With: Erendira Bo DO When: As scheduled Please Follow Up With: Raymond Felder MD - [phone] When: 1 Week Disposition: Home Minutes spent on discharge:: 35 Patient Condition:: Stable Medical Necessity - Tobacco Use Smoking Status: Former smoker Tobacco Use: Non-smoker Meaningful Use Info Meaningful Use Diagnoses (Choose all that apply): None applicable <Catrachito Oden - Last Filed: 04/02/18 13:12> Discharge Date and Diagnosis - Secondary Discharge Diagnosis Chronic Problems (Last Reviewed 03/31/18 @ 13:40 by Kel Romo DO) DM2 (diabetes mellitus, type 2) (Chronic) CAD (coronary artery disease) (Chronic) HLD (hyperlipidemia) (Chronic) TIA (transient ischemic attack) (Chronic) History of percutaneous transluminal coronary angioplasty (Chronic) PTCA with Taxus stent to SVG to OM, 2005 - 03/05/10 PTCA/stent ([place]ESSICA) to proximal to mod SVG to 2nd obtuse marginal artery - Successful angioplasty & Promus [place] PCI @ [facility] stent SVG-OM 01/10 Aortocoronary bypass status (Chronic) CABG SVG to DG, OM & RCA Carotid bruit (Chronic) Coronary atherosclerosis of [place] coronary artery (Chronic) Hypertension (Chronic) Hospital Course and Treatment Summary of Care Provided: In brief, patient is an 82-year-old lady admitted with progressive shortness of breath and assessment of pneumonia secondary to Legionella made admitted to a monitored bed where patient has since been managed Assessment: 1. Sepsis secondary to pneumonia due to Legionella 2. SVT 3. Dehydration 4. Diarrhea 5. Acute infectious encephalopathy 6. Diabetes mellitus type 2 7. CAD with previous CABG and subsequent stent placement 8. Hypertension 9. Hypothyroidism next para 10. DVT prophylaxis SCDs for now held off with chemoprophylaxis in view of patient melenic stools Hospital course; elicited above by Lillian Dobson NPC Code Visit Inpatient E&M: [id number] Disch Hosp
--- NOTE | 2018-04-02 15:20 | CASEMGMT ---
This RN CM to room to speak with pt regarding possible outpt therapy per recommendation from therapy at this time. Pt declines outpt therapy at this time. This RN CM advised pt that if she changes her mind once home that her PCP can also order outpt therapy for her at that time, pt/family voice understanding. Pt voices no further concerns/needs at this time. SStpraneeth CRYSTAL CM
--- NOTE | 2018-04-06 15:41 | CASEMGMT ---
MARAH RIVAS Discharge Follow-up Phone Call: BIANCA: Mallory Strata: 3 Call Date: 04/06/18 Discharge Date: 04/02/18 Time of Call: 1540 Duration: 3 min Admitting Diagnosis: Pneumonia MARAH RIVAS completed follow-up phone call after recent hospitalization. Patient states that she is doing so so and is still nauseas at time. Patient states that her daughters are taking care of her and that they are taking her tomorrow to all her follow-up appts. Patient states that she has no questions regarding discharge instructions or medications.
== END 2018-04-02 15:31 | disposition home or self-care (01) | DRG 871 ==
LOC: ED 07:34 → PCU 10:19
PROVIDERS: Internal Medicine; Physician Assistant; Emergency Provider Emergency Medicine; Family Provider Family Medicine Geriatric Medicine; PCP Family Medicine Geriatric Medicine; Visit Provider Internal Medicine
DX: A41.9 Sepsis, unspecified organism (principal); A48.1 Legionnaires' disease; G93.41 Metabolic encephalopathy; I47.1 Supraventricular tachycardia; E86.0 Dehydration; D64.9 Anemia, unspecified; R19.5 Other fecal abnormalities; E11.9 Type 2 diabetes mellitus without complications; I25.10 Atherosclerotic heart disease of native coronary artery without angina pectoris; Z95.1 Presence of aortocoronary bypass graft; Z95.5 Presence of coronary angioplasty implant and graft; E78.5 Hyperlipidemia, unspecified; I10 Essential (primary) hypertension; Z86.73 Personal history of transient ischemic attack (TIA), and cerebral infarction without residual deficits; E03.9 Hypothyroidism, unspecified; E87.6 Hypokalemia; Z87.891 Personal history of nicotine dependence; Z79.899 Other long term (current) drug therapy; Z79.4 Long term (current) use of insulin
CPT/HCPCS: 36415; 71045; 80048; 80076; 81001; 82274; 82962; 83605; 83690; 83735; 83880; 84439; 84443; 84481; 84484; 85025; 85610; 85730; 87040; 87449; 87493; 93005; 94640; 94667; 94668; 97110; 97116; 97162; 97166; 97535; 99283; 99285; J7030; J7040; J7050; A4216; J2405

== ENCOUNTER → 2018-04-07 11:54 | Outpatient (CLI) | payer MEDICARE, SELFPAY ==
--- NOTE | 2018-04-07 12:05 | RAD_ITS ---
STUDY: X-RAY - ABDOMEN/PELVIS REASON FOR EXAM: Female, 82 years old. Pain TECHNIQUE: AP supine and upright views of the abdomen and pelvis. COMPARISON: None. FINDINGS: Normal visualized lung bases. There is an unremarkable bowel gas pattern. There is no demonstrated free abdominal air. The visualized liver, spleen and kidneys are grossly normal in size and morphology. Normal soft tissue structures. Normal visualized osseous structures. Cholecystectomy clips. RAD/Abd Inc Decub and/or Erect IMPRESSION: Normal bowel gas pattern. Electronically Signed: Noe Ortiz MD at 23:01 EDT Tel , Service support ,
--- NOTE | 2018-04-07 12:08 | RAD_ITS ---
STUDY: X-RAY CHEST REASON FOR EXAM: Female, 82 years old. Chondroclinosis TECHNIQUE: PA and lateral views of the chest. COMPARISON: January 01, 2018 FINDINGS: There is hyperinflation of the lungs consistent with chronic obstructive lung disease (COPD). Patchy airspace disease in the left upper lobe suggest infection. There is a nodular component measuring 2.2 cm. Sternal cerclage wires are present from a prior sternotomy. Mild cardiomegaly. Normal mediastinum and norma. Normal visualized pulmonary arteries. Normal visualized aortic arch and descending thoracic aorta. There are diffuse degenerative changes of the visualized thoracic spine. There is degenerative osteoarthritis of the bilateral shoulders. There is no demonstrated abnormality of the visualized soft tissue structures of the upper abdomen. RAD/Chest PA and Lateral IMPRESSION: COPD with left upper lobe infiltrate and nodular component. Recommend CT chest to further evaluate Electronically Signed: Sulaiman Braswell DO at 16:59 EDT Tel , Service support ,
[2018-04-07 13:31] LABS: Hematocrit 34.8 % (37-47); Hemoglobin 11.5 g/dl (12.0-15.0); Mean Corpuscular Hgb 28.9 pg (27.0-32.0); Mean Corpuscular Volume 87.4 fL (81-99); Platelet Count 576 K/mm3 (150-450); RBC Distribution Width CV 14.1 % (11.6-14.6); RBC Distribution Width SD 44.9 fl (35.1-43.9); Red Blood Count 3.98 M/mm3 (4.2-5.4); White Blood Count 15.9 K/mm3 (4.4-11.0)
[2018-04-07 13:32] LABS: Differential Indicated MANUAL DIFF; POSITIVE COUNT YES; POSITIVE DIFFERENTIAL NO; POSITIVE MORPHOLOGY YES
[2018-04-07 14:04] LABS: Lymphocyte 10 % (19-41); Metamyelocyte 2 % (0-1); Monocyte 2 % (0-10); Neutrophil-Band 1 % (0-5); Neutrophil-Segmented 85 % (47-70); Platelet Estimate ADEQUATE (ADEQ); Red Cell Morphology NORM C+C NORMAL (NORM C&C); Total Cells Counted 100 (MANUAL DIFF)
[2018-04-07 14:05] LABS: Absolute Neutrophil Count 13.7 X10^3/uL (2.0-7.7)
[2018-04-07 16:12] LABS: Pathologist Review Reviewed
== END ==
PROVIDERS: Family Provider Family Medicine Geriatric Medicine; PCP Family Medicine Geriatric Medicine; Visit Provider Family Medicine Geriatric Medicine
DX: D64.9 Anemia, unspecified (principal); N39.0 Urinary tract infection, site not specified; M11.20 Other chondrocalcinosis, unspecified site; R10.9 Unspecified abdominal pain
CPT/HCPCS: 36415; 71046; 74019; 85025

== ENCOUNTER 2018-04-07 21:34 | Emergency (ER) | payer MEDICARE, SELFPAY ==
[2018-04-07 21:35] VITALS: BP 152/72; PULSE 77; RESP 16; TEMP 36.4; O2SAT 98; BMI 29.2
[2018-04-07 22:05] VITALS: BP 142/58; PULSE 79; RESP 27; O2SAT 96
--- NOTE | 2018-04-07 22:32 | EKG12_ITS ---
Test Reason : CP Blood Pressure : / mmHG Vent. Rate : 077 BPM Atrial Rate : 077 BPM P-R Int : 124 ms QRS Dur : 094 ms QT Int : 420 ms P-R-T Axes : 000 -25 024 degrees QTc Int : 475 ms Normal sinus rhythm Nonspecific ST abnormality Abnormal ECG Confirmed by VINAY CORONA, CORY ([id number]), technical writer and editor JUANIS PLUNKETT ([id number] on 04/09/2018 1:58:02 PM Referred By: ANA M Confirmed By:CORY MCLEAN MD
[2018-04-07] MEDS: Aspirin 81 MG TAB.CHEW 324 MG PO (22:38)
[2018-04-07 23:08] LABS: Hematocrit 33.3 % (37-47); Hemoglobin 10.8 g/dl (12.0-15.0); Mean Corp Hgb Conc 32.4 g/gl (32-36); Mean Corpuscular Hgb 28.5 pg (27.0-32.0); Mean Corpuscular Volume 87.9 fL (81-99); Mean Platelet Vol. 9.9 fl (6.2-12.0); Platelet Count 537 K/mm3 (150-450); Red Blood Count 3.79 M/mm3 (4.2-5.4); White Blood Count 15.7 K/mm3 (4.4-11.0)
[2018-04-07 23:09] LABS: Differential Indicated MANUAL DIFF; POSITIVE COUNT YES; POSITIVE DIFFERENTIAL NO; POSITIVE MORPHOLOGY YES
[2018-04-07 23:10] LABS: Anion Gap 12 (5-15); BUN 22 mg/dL (7-18); BUN/Creat Ratio 17.9 RATIO (10-20); Calcium,Total 8.9 mg/dL (8.5-10.1); Chloride 98 mmol/L (98-107); Creatinine, Serum 1.23 mg/dL (0.55-1.02); EST Glomerular Filtration Rate 45 mL/min (>60); Est Glom Filt Rate - Afr Amer 54 mL/min (>60); Glucose 247 mg/dL (74-106); Potassium 3.6 mmol/L (3.5-5.1); Sodium Level 136 mmol/L (136-145)
[2018-04-07 23:31] LABS: Neutrophil-Band 3 % (0-5); Neutrophil-Segmented 66 % (47-70); Total Cells Counted 100 (MANUAL DIFF)
[2018-04-07 23:32] LABS: Lymphocyte 15 % (19-41); Metamyelocyte 6 % (0-1); Monocyte 8 % (0-10); Myelocyte 1 (0-0); Promyelocyte 1 (0-0)
[2018-04-07 23:35] VITALS: BP 146/77; PULSE 88; RESP 16; O2SAT 95
[2018-04-07 23:41] LABS: BNP,B-Type NATRIURETIC PEPTIDE 27.5 pg/mL (0-100)
[2018-04-08 00:07] VITALS: BP 148/74; PULSE 77; RESP 26; O2SAT 97
--- NOTE | 2018-04-08 00:37 | ED.VISSUMM ---
- ER Visit Summary Date of Service: 04/08/18 Chief Complaint: Right-sided arm pain History of Present Illness: The patient is a 82 F presenting for evaluation secondary to right-sided arm pain. Patient was recently admitted to the hospital with pneumonia and was diagnosed as having Legionella pneumonia and sepsis. She was discharged from the hospital last . Patient states she was doing well she finished her course of outpatient antibiotics. Patient reports that today at about 1800 she started to have a feeling of aching in her right arm as well as a tingling sensation in her right hand. She reports that this radiated up into her neck. She reports that it had no exacerbating relieving factors but it was associated with a single episode of nausea and vomiting. Patient reports that she has been undergoing GI workup recently secondary to some black tarry stools saw GI today and was discontinued from taking her Plavix. Patient states actually she has been off of her Plavix for 1 week. She does have an underlying history of coronary artery disease. She denies any prior history of DVT or PE. She denies any significant dyspnea or pain with deep inspiration or hemoptysis. Physical Examination: Elderly female vital signs within normal limits no hypoxia patient does have a minimal amount of tachypnea with a respiratory rate of 27. Well-nourished female no acute distress. No conjunctival pallor no scleral icterus, moist mucous membranes. Neck was supple. Heart was regular rate and rhythm no murmurs. Lungs sounds are clear to auscultation bilaterally with shallow respirations and some tachypnea. Abdomen was soft and nontender. Back was nontender. There is 2+ bilaterally symmetric lower extremity peripheral edema with no asymmetry. No rashes noted. Patient was alert and oriented. Test Results: EKG demonstrates a sinus rate of [address] segments normal T waves, grossly unchanged from prior EKG. CBC demonstrates leukocytosis of 15 stable with patient's prior white blood cell count. Chemistry panel shows stable BUN and creatinine with an elevated glucose 247 troponin and BNP are negative. Chest x-ray performed earlier today shows improving left upper lobe infiltrate. Emergency Department Course and Treatment: Patient presented for evaluation secondary to right arm pain. Patient's arm pain seems rather atypical for cardiac pain as there is no exacerbating relieving factors no other associated factors. Patient's cardiac workup was negative. She does still have a persistent white count and persistent infiltrate, this could be contributing to the patient's discomfort although it seems unlikely. Patient does not have any evidence of hypoxia or any evidence of residual severe sepsis that she would require admission for but she does have persistent infiltrate and white count so I believe that a prolonged course of Levaquin is likely appropriate. Patient was given a first dose in the emergency department will be discharged with this. She was also complaining of some constipation she will be sent home with MiraLAX. Patient's heart score is 4. Disposition: Discharge Impression: 1. Right arm pain 2. Recent Legionella pneumonia This note was generated with [employer] dictation software. It may contain incorrect words, spelling, and punctuation that were not noted in review of the chart prior to signing ED Disposition - Plan for ED Patient: Disposition: Home or Assisted Living Chief Complaint: Chest Pain Diagnosis: Right arm pain Instructions: ED Chest Pain NonCardiac Prescriptions: Levofloxacin [Levaquin] 750 mg PO DAILY #5 tab Polyethylene Glycol 3350 [Miralax] 17 gm PO DAILY #10 packet Referrals: Brian Degroot Chi, MD [Primary Care Provider] - As soon as possible
[2018-04-08 00:51] VITALS: BP 143/67; PULSE 78; RESP 16; O2SAT 95
[2018-04-08] MEDS: levoFLOXacin 750 MG Tablet PO (00:51)
[2018-04-08 15:50] LABS: Pathologist Review Reviewed
== END 2018-04-08 00:52 | disposition home or self-care (01) ==
PROVIDERS: Emergency Provider Emergency Medicine; Family Provider Family Medicine Geriatric Medicine; PCP Family Medicine Geriatric Medicine
DX: M79.601 Pain in right arm (principal); R06.82 Tachypnea, not elsewhere classified; Z87.01 Personal history of pneumonia (recurrent); K59.00 Constipation, unspecified; I25.10 Atherosclerotic heart disease of native coronary artery without angina pectoris; Z79.82 Long term (current) use of aspirin; Z79.899 Other long term (current) drug therapy; D64.9 Anemia, unspecified; N39.0 Urinary tract infection, site not specified; M11.20 Other chondrocalcinosis, unspecified site; R91.1 Solitary pulmonary nodule; R09.89 Other specified symptoms and signs involving the circulatory and respiratory systems
CPT/HCPCS: 36415; 71046; 71260; 74019; 80048; 83880; 84484; 85025; 87633; 93005; 99285; Q9967; A4216

== ENCOUNTER → 2018-04-08 17:40 | Outpatient (CLI) | payer MEDICARE, SELFPAY ==
--- NOTE | 2018-04-08 17:45 | CT_ITS ---
STUDY: CT CHEST WITH CONTRAST REASON FOR EXAM: Female, 82 years old. Shortness of breath RADIATION DOSAGE (If Supplied By Facility): CTDIvol = ( 13.65 ) mGy, DLP = ( 5679.98 ) mGycm TECHNIQUE: Transaxial imaging was performed following intravenous administration of 75mL ml of Isovue 300 contrast material. Individualized dose optimization techniques were used for this CT. COMPARISON: April 07, 2018 chest x-ray FINDINGS: Left upper lobe airspace disease. Small left effusion. Normal heart and pericardium. Calcific coronary artery disease. Normal mediastinum. Normal hilar regions. Normal enhanced pulmonary arteries. Normal aorta arch and descending thoracic aorta. Moderate kyphosis. Sternotomy. Small hiatal hernia. CT/Chest WITH Contrast IMPRESSION: Lingular airspace disease and small left effusion. Recommend follow-up to resolution. Coronary artery disease/CABG. Electronically Signed: Jose De Jesus Crowell MD at 0:51 EDT , Service support ,
== END ==
PROVIDERS: Family Provider Family Medicine Geriatric Medicine; PCP Family Medicine Geriatric Medicine; Visit Provider Family Medicine Geriatric Medicine
DX: R91.1 Solitary pulmonary nodule (principal); R09.89 Other specified symptoms and signs involving the circulatory and respiratory systems
CPT/HCPCS: 71260; 87633; Q9967

== ENCOUNTER 2018-04-24 09:50 | Day surgery (SDC) | payer MEDICARE, SELFPAY ==
[2018-04-24] VITALS (8 sets, daily range): BP systolic 102–134; BP diastolic 57–73; PULSE 64–76; RESP 16; TEMP 36.1–36.5; O2SAT 93–99; BMI 29.0
[2018-04-24 10:46] LABS: Bedside Glucose 153 mg/dL (70-110)
--- NOTE | 2018-04-24 11:00 | EGD_PTH ---
PATIENT: ENDER ALVES LOC: EN U#:[id number] AGE/SX: 82/F ROOM: RE04/24/[address]: Dr. Raymond Felder MD : 1935 BED: DIS: 04/24/2018 SPEC #: [id number] RECD: 04/24/18 12:24 STATUS: LENORE MAXINE #: [id number] CRISTOBAL: 04/24/18 11:[address]: Raymond Felder DEPT: SURGICAL PATHOLOGY RECD BY: Alma Victor ENTERED: 04/24/18 13:07 SP TYPE: EGD BIOPSY OT DR: Dr. Brian Degroot MD Tissues: Esophagus, NOS Procedures: Special Stain Group II Special Stain Group I Surgery Specimen Level IV GMS Stain (control) Alcian Blue/PAS (control) HEADER OPERATION: Colonoscopy, EGD ([facility]) PRE-OP DIAGNOSIS: GI bleed TISSUE SUBMITTED: Distal esophagus biopsy MICROSCOPIC DIAGNOSIS Distal esophagus, biopsy: Fragments of gastroesophageal mucosa with extensive ulceration, acute inflammation and reactive changes. Special stain for fungi I negative for organisms; matched control is appropriate. Intestinal metaplasia (goblet cell metaplasia) is not identified. See comment. CATHERINE:justice 04/27/18 COMMENT Alcian blue/PAS stain with matched control is used in the evaluation of the specimen. MICROSCOPIC DESCRIPTION Slides are reviewed. GROSS DESCRIPTION Received in fixative is one container labeled with the patient's name and designated distal esophagus biopsy. The specimen consists of multiple irregular fragments of light atkinson soft tissue that in aggregate measure 1.5 x 0.3 x 0.1 cm. The specimen is totally submitted in one cassette. / CATHERINE:justice 04/24/18 TC:2 CPT: 43539, 76541, 88849
--- NOTE | 2018-04-24 11:56 | OP.PCM_ITS ---
Problem List (1) GI bleed Status: Chronic Qualifiers: GI bleed type/associated pathology: unspecified gastrointestinal hemorrhage type Qualified Code(s): K92.2 - Gastrointestinal hemorrhage, unspecified Report of Operation Date of Procedure: 04/24/18 Pre-Operative Diagnosis: GI bleed with melena Post-Operative Diagnosis: Erosive esophagitis of the distal half of the esophagus. Hiatal hernia. Diverticulosis Surgery/Procedure Performed:: 1. EGD with biopsy. 2. Colonoscopy Specimen's removed: Distal esophagus Description of Procedure: The major risks and benefits associated with the procedure were explained to the patient in detail. The patient verbalized understanding and agreement with the same. The patient was then placed in the left lateral decubitus position. IV sedation was started by anesthesia. The endoscope was then advanced under direct visualization over the tongue, into the esophagus , stomach and duodenum. Upon entry to the esophagus the distal half of the esophagus was very irritated and had erosive esophagitis circumferentially. It was very friable and bled easily. The scope was advanced into the duodenum which was normal. The scope was withdrawn and retroflexed and this revealed a moderate sized hiatal hernia. The scope was straightened and withdrawn. The stomach mucosa was normal. Upon entering the esophagus several cold forceps biopsies were taken. The scope was then withdrawn to the mid and proximal esophagus which were normal. The scope was then withdrawn from the patient. The patient was then turned for the colonoscopy portion of the procedure. A digital rectal exam was performed. This examination was within normal limits. A well-lubricated colonoscope was then inserted into the rectum and advanced under direct visualization to the level of the cecum. The bowel prep was good. The cecum was identified by both visual and anatomic landmarks. A photograph was taken of the end of the cecum. The scope was then fully withdrawn while examining the color, texture, anatomy and integrity of the mucosa from the cecum to the anal canal. The findings were consistent with normal colonic mucosa. The patient did have sigmoid diverticulosis. Upon reaching the rectum the scope was retroflexed to examine the distal rectal vault. The scope was then straightened and was completely retrieved upon exiting the anal canal and the procedure was terminated. The patient was then transferred to the recovery room in stable condition. Recommendations for follow up: Patient will need repeat EGD to ensure healing of the esophagitis but not repeat colonoscopy due to age. I will place the patient on nystatin until we prove that it is not yeast and bismuth as well.
== END 2018-04-24 12:45 | disposition home or self-care (01) ==
LOC: EN 09:51 → AC 09:52
PROVIDERS: Family Provider Family Medicine Geriatric Medicine; PCP Family Medicine Geriatric Medicine; Visit Provider Surgery
PROC: 0DJD8ZZ Inspection of Lower Intestinal Tract, Via Natural or Artificial Opening Endoscopic (ICD-10-PCS; CPT 45378; principal; 2018-04-24 10:55)
DX: K22.11 Ulcer of esophagus with bleeding (principal); K44.9 Diaphragmatic hernia without obstruction or gangrene; K57.30 Diverticulosis of large intestine without perforation or abscess without bleeding; K21.9 Gastro-esophageal reflux disease without esophagitis; I25.10 Atherosclerotic heart disease of native coronary artery without angina pectoris; I47.1 Supraventricular tachycardia; I10 Essential (primary) hypertension; E11.9 Type 2 diabetes mellitus without complications; E78.5 Hyperlipidemia, unspecified; J44.9 Chronic obstructive pulmonary disease, unspecified; R01.1 Cardiac murmur, unspecified; Z95.1 Presence of aortocoronary bypass graft; Z95.5 Presence of coronary angioplasty implant and graft; Z86.73 Personal history of transient ischemic attack (TIA), and cerebral infarction without residual deficits; Z79.82 Long term (current) use of aspirin; Z79.01 Long term (current) use of anticoagulants; Z79.84 Long term (current) use of oral hypoglycemic drugs; Z79.899 Other long term (current) drug therapy; Z87.891 Personal history of nicotine dependence
CPT/HCPCS: 43239; 45378; 82962; 88305; 88312; 88313; J7120

== ENCOUNTER → 2018-05-04 15:55 | Outpatient (CLI) | payer MEDICARE, SELFPAY ==
--- NOTE | 2018-05-04 16:13 | RAD_ITS ---
STUDY: X-RAY CHEST REASON FOR EXAM: Female, 82 years old. Cough. History of legionnaires disease. TECHNIQUE: Frontal and lateral views of the chest COMPARISON: 04/07/2018 FINDINGS: The previously seen left upper lobe infiltrate has nearly completely resolved. The lungs are otherwise clear. There are no pleural effusions. There is no pneumothorax. The heart is normal in size. Again noted are old, healed right-sided rib fractures. The patient is status post sternotomy. RAD/Chest PA and Lateral IMPRESSION: Near complete resolution of the previously seen left upper lobe opacity. Otherwise, clear lungs. Electronically Signed: Armando Meredith, at 16:46 EDT Tel , Service support ,
[2018-05-04 17:54] LABS: Absolute Lymphocyte Count 4.28 X10^3/ul (0.83-4.51); Absolute Neutrophil Count 6.5 X10^3/uL (2.0-7.7); Basophil# 0.07 X10^3/uL; Basophil% 0.6 % (0-1); Eosinophil# 0.19 X10^3/uL; Eosinophils% 1.6 % (0-5); Hematocrit 33.9 % (37-47); Hemoglobin 10.9 g/dl (12.0-15.0); Lymphocyte # 4.28 X10^3/ul (4.0); Lymphocyte % 35.3 % (19-41); Mean Corp Hgb Conc 32.2 g/gl (32-36); Mean Corpuscular Hgb 28.3 pg (27.0-32.0); Mean Corpuscular Volume 88.1 fL (81-99); Mean Platelet Vol. 11.2 fl (6.2-12.0); Monocyte# 1.06 X10^3/uL; Monocyte% 8.7 % (0-10); Neutrophil # 6.49 X10^3/uL (2.7-7.7); Neutrophil % 53.4 % (47-70); Platelet Count 354 K/mm3 (150-450); RBC Distribution Width CV 14.1 % (11.6-14.6); RBC Distribution Width SD 45.1 fl (35.1-43.9); Red Blood Count 3.85 M/mm3 (4.2-5.4); White Blood Count 12.1 K/mm3 (4.4-11.0)
[2018-05-04 17:55] LABS: POSITIVE COUNT NO; POSITIVE DIFFERENTIAL NO; POSITIVE MORPHOLOGY NO
[2018-05-04 17:58] LABS: Anion Gap 9 (5-15); BUN 40 mg/dL (7-18); BUN/Creat Ratio 27.2 RATIO (10-20); Calcium,Total 9.4 mg/dL (8.5-10.1); Chloride 103 mmol/L (98-107); Creatinine, Serum 1.47 mg/dL (0.55-1.02); EST Glomerular Filtration Rate 36 mL/min (>60); Est Glom Filt Rate - Afr Amer 44 mL/min (>60); Glucose 151 mg/dL (74-106); Potassium 2.9 mmol/L (3.5-5.1); Sodium Level 141 mmol/L (136-145)
== END ==
PROVIDERS: Family Provider Family Medicine Geriatric Medicine; PCP Family Medicine Geriatric Medicine; Visit Provider Family Medicine Geriatric Medicine
DX: A41.9 Sepsis, unspecified organism (principal)
CPT/HCPCS: 36415; 71046; 80048; 85025; 87040

== ENCOUNTER → 2018-05-05 11:31 | Outpatient (CLI) | payer MEDICARE, SELFPAY | PROVIDERS: Family Provider Family Medicine Geriatric Medicine; PCP Family Medicine Geriatric Medicine; Visit Provider Family Medicine Geriatric Medicine | DX: A41.9 Sepsis, unspecified organism (principal) | CPT/HCPCS: 87070; 87205 ==

== ENCOUNTER → 2018-05-28 14:43 | Outpatient (CLI) | payer MEDICARE, SELFPAY ==
[2018-05-28 17:28] LABS: Absolute Lymphocyte Count 3.75 X10^3/ul (0.83-4.51); Absolute Neutrophil Count 7.1 X10^3/uL (2.0-7.7); Basophil# 0.07 X10^3/uL; Basophil% 0.6 % (0-1); Eosinophil# 0.22 X10^3/uL; Eosinophils% 1.8 % (0-5); Hematocrit 34.4 % (37-47); Lymphocyte # 3.75 X10^3/ul (4.0); Lymphocyte % 30.9 % (19-41); Mean Corpuscular Hgb 28.1 pg (27.0-32.0); Mean Corpuscular Volume 87.8 fL (81-99); Mean Platelet Vol. 10.9 fl (6.2-12.0); Monocyte# 0.95 X10^3/uL; Monocyte% 7.8 % (0-10); Neutrophil % 58.6 % (47-70); Platelet Count 368 K/mm3 (150-450); RBC Distribution Width SD 44.3 fl (35.1-43.9); Red Blood Count 3.92 M/mm3 (4.2-5.4); White Blood Count 12.1 K/mm3 (4.4-11.0)
[2018-05-28 17:30] LABS: POSITIVE COUNT NO; POSITIVE DIFFERENTIAL NO; POSITIVE MORPHOLOGY NO
[2018-05-28 18:07] LABS: ALB/GLOB Ratio 0.8 RATIO (0.9-2.4); AST(SGOT) 9 U/L (15-37); Alanine Aminotransfer ALT/SGPT 16 U/L (13-56); Albumin, Serum 3.2 g/dL (3.2-5.0); Alkaline Phosphatase 72 U/L (45-117); Anion Gap 12 (5-15); BUN 16 mg/dL (7-18); BUN/Creat Ratio 12.9 RATIO (10-20); Calcium,Total 9.2 mg/dL (8.5-10.1); Chloride 101 mmol/L (98-107); Creatinine, Serum 1.24 mg/dL (0.55-1.02); EST Glomerular Filtration Rate 44 mL/min (>60); Est Glom Filt Rate - Afr Amer 53 mL/min (>60); Glucose 232 mg/dL (74-106); Potassium 3.6 mmol/L (3.5-5.1); Protein, Total 7.2 g/dL (6.4-8.2); Sodium Level 138 mmol/L (136-145)
== END ==
PROVIDERS: Family Provider Family Medicine Geriatric Medicine; PCP Family Medicine Geriatric Medicine; Visit Provider Family Medicine Geriatric Medicine
DX: R53.83 Other fatigue (principal); M17.11 Unilateral primary osteoarthritis, right knee
CPT/HCPCS: 36415; 73564; 80053; 84443; 85025

== ENCOUNTER → 2018-06-11 16:18 | Outpatient (CLI) | payer MEDICARE, SELFPAY ==
[2018-06-11 16:54] LABS: International Normalized Ratio 0.9; Partial Thromboplast Time 24.6 Seconds (24.1-36.2)
[2018-06-11 16:57] LABS: Absolute Lymphocyte Count 2.68 X10^3/ul (0.83-4.51); Absolute Neutrophil Count 8.9 X10^3/uL (2.0-7.7); Basophil# 0.03 X10^3/uL; Basophil% 0.2 % (0-1); Eosinophil# 0.13 X10^3/uL; Hematocrit 34.2 % (37-47); Hemoglobin 11.1 g/dl (12.0-15.0); Lymphocyte # 2.68 X10^3/ul (4.0); Lymphocyte % 20.9 % (19-41); Mean Corp Hgb Conc 32.5 g/gl (32-36); Mean Corpuscular Hgb 28.1 pg (27.0-32.0); Mean Corpuscular Volume 86.6 fL (81-99); Mean Platelet Vol. 11.2 fl (6.2-12.0); Monocyte# 0.97 X10^3/uL; Monocyte% 7.6 % (0-10); Neutrophil # 8.89 X10^3/uL (2.7-7.7); Neutrophil % 69.4 % (47-70); Platelet Count 265 K/mm3 (150-450); RBC Distribution Width CV 14.4 % (11.6-14.6); RBC Distribution Width SD 44.7 fl (35.1-43.9); Red Blood Count 3.95 M/mm3 (4.2-5.4); White Blood Count 12.8 K/mm3 (4.4-11.0)
[2018-06-11 16:59] LABS: POSITIVE COUNT NO; POSITIVE DIFFERENTIAL NO; POSITIVE MORPHOLOGY NO
[2018-06-11 17:33] LABS: Anion Gap 10 (5-15); BUN 24 mg/dL (7-18); BUN/Creat Ratio 21.8 RATIO (10-20); Calcium,Total 9.2 mg/dL (8.5-10.1); Chloride 104 mmol/L (98-107); EST Glomerular Filtration Rate 51 mL/min (>60); Est Glom Filt Rate - Afr Amer 61 mL/min (>60); Glucose 320 mg/dL (74-106); Potassium 3.6 mmol/L (3.5-5.1); Sodium Level 138 mmol/L (136-145)
== END ==
PROVIDERS: Family Provider Family Medicine Geriatric Medicine; PCP Family Medicine Geriatric Medicine; Visit Provider Family Medicine Geriatric Medicine
DX: I10 Essential (primary) hypertension (principal); R60.9 Edema, unspecified
CPT/HCPCS: 36415; 80048; 85025; 85610; 85730

== ENCOUNTER 2018-06-23 06:52 | Day surgery (SDC) | payer MEDICARE, SELFPAY ==
[2018-06-23 07:35] VITALS: BP 135/62; PULSE 86; RESP 16; TEMP 36.2; O2SAT 93; BMI 29.5
--- NOTE | 2018-06-23 08:00 | ESO_PTH ---
PATIENT: ENDER ALVES LOC: EN U#:[id number] AGE/SX: 82/F ROOM: RE06/23/[address]: Dr. Raymond Felder MD : 1935 BED: DIS: 06/23/2018 SPEC #: [id number] RECD: 06/23/18 11:21 STATUS: LENORE MAXINE #: [id number] CRISTOBAL: 06/23/18 08:[address]: Raymond Felder DEPT: SURGICAL PATHOLOGY RECD BY: Domenico Jacobo ENTERED: 06/23/18 11:41 SP TYPE: CAREY PÉREZ DR: Dr. Brian Degroot MD Tissues: Esophagus, NOS Procedures: Special Stain Group I Surgery Specimen Level IV GMS Stain (control) HEADER OPERATION: EGD ([facility]) PRE-OP DIAGNOSIS: Esophagitis TISSUE SUBMITTED: Distal esophageal biopsy to rule out fungus MICROSCOPIC DIAGNOSIS Distal esophagus, biopsy: Acute esophagitis. Abundant fungal organisms consistent with dang species. AM:rg 9/26/18 COMMENT GMS stain with matched control supports the above diagnosis. MICROSCOPIC DESCRIPTION Slides are reviewed. GROSS DESCRIPTION Received in fixative is one container labeled with the patient's name and designated distal esophageal biopsy. The specimen consists of multiple irregular fragments of light atkinson soft tissue that in aggregate measure 1.5 x 0.5 x 0.2 cm. The specimen is totally submitted in one cassette. / RY:justice 06/23/18 TC:2 CPT: 42889, 65629
[2018-06-23 08:06] LABS: Bedside Glucose 170 mg/dL (70-110)
[2018-06-23 08:29] VITALS: BP 114/54; BP 135/62; PULSE 79; RESP 18; TEMP 36.4; O2SAT 95
[2018-06-23 08:34] VITALS: BP 132/66; BP 135/62; PULSE 74; RESP 18; O2SAT 95
[2018-06-23 08:39] VITALS: BP 116/70; BP 135/62; PULSE 79; RESP 18; O2SAT 98
[2018-06-23 08:44] VITALS: BP 124/62; BP 135/62; PULSE 73; RESP 18; TEMP 36.6; O2SAT 97
[2018-06-23 09:41] VITALS: BP 135/62
== END 2018-06-23 09:44 | disposition home or self-care (01) ==
LOC: EN 06:54 → AC 06:54
PROVIDERS: Family Provider Family Medicine Geriatric Medicine; PCP Family Medicine Geriatric Medicine; Visit Provider Surgery
PROC: 0DJ08ZZ Inspection of Upper Intestinal Tract, Via Natural or Artificial Opening Endoscopic (ICD-10-PCS; CPT 43235; principal; 2018-06-23 07:55)
DX: B37.81 Candidal esophagitis (principal); K21.9 Gastro-esophageal reflux disease without esophagitis; I25.10 Atherosclerotic heart disease of native coronary artery without angina pectoris; I25.2 Old myocardial infarction; I10 Essential (primary) hypertension; E11.9 Type 2 diabetes mellitus without complications; E78.00 Pure hypercholesterolemia, unspecified; E06.9 Thyroiditis, unspecified; Z95.1 Presence of aortocoronary bypass graft; Z95.5 Presence of coronary angioplasty implant and graft; Z79.4 Long term (current) use of insulin; Z79.899 Other long term (current) drug therapy; Z87.891 Personal history of nicotine dependence; Z86.73 Personal history of transient ischemic attack (TIA), and cerebral infarction without residual deficits
CPT/HCPCS: 43239; 82962; 88305; 88312; J7120

== ENCOUNTER → 2018-07-15 10:09 | Outpatient (CLI) | payer MEDICARE, SELFPAY ==
[2018-07-15 11:44] LABS: Anion Gap 8 (5-15); BUN 25 mg/dL (7-18); BUN/Creat Ratio 23.4 RATIO (10-20); Calcium,Total 9.5 mg/dL (8.5-10.1); Chloride 103 mmol/L (98-107); Creatinine, Serum 1.07 mg/dL (0.55-1.02); EST Glomerular Filtration Rate 52 mL/min (>60); Est Glom Filt Rate - Afr Amer 63 mL/min (>60); Glucose 258 mg/dL (74-106); Potassium 4.1 mmol/L (3.5-5.1); Sodium Level 136 mmol/L (136-145)
[2018-07-15 11:51] LABS: Erythrocyte Sedimentation Rate 58 mm/hr (0-30)
[2018-07-15 12:04] LABS: Absolute Lymphocyte Count 3.53 X10^3/ul (0.83-4.51); Absolute Neutrophil Count 9.7 X10^3/uL (2.0-7.7); Basophil# 0.05 X10^3/uL; Basophil% 0.3 % (0-1); Eosinophil# 0.15 X10^3/uL; Hematocrit 33.9 % (37-47); Hemoglobin 11.1 g/dl (12.0-15.0); Lymphocyte # 3.53 X10^3/ul (4.0); Lymphocyte % 24.2 % (19-41); Mean Corp Hgb Conc 32.7 g/gl (32-36); Mean Corpuscular Volume 85.4 fL (81-99); Mean Platelet Vol. 11.3 fl (6.2-12.0); Monocyte# 1.02 X10^3/uL; Neutrophil # 9.73 X10^3/uL (2.7-7.7); Neutrophil % 66.7 % (47-70); Platelet Count 375 K/mm3 (150-450); RBC Distribution Width CV 14.6 % (11.6-14.6); Red Blood Count 3.97 M/mm3 (4.2-5.4); White Blood Count 14.6 K/mm3 (4.4-11.0)
[2018-07-15 12:06] LABS: POSITIVE COUNT NO; POSITIVE DIFFERENTIAL NO; POSITIVE MORPHOLOGY NO
== END ==
PROVIDERS: Family Provider Family Medicine Geriatric Medicine; PCP Family Medicine Geriatric Medicine; Visit Provider Family Medicine Geriatric Medicine
DX: R53.83 Other fatigue (principal)
CPT/HCPCS: 36415; 80048; 85025; 85652; 86140

== ENCOUNTER → 2018-07-22 09:19 | Outpatient (CLI) | payer MEDICARE, SELFPAY ==
--- NOTE | 2018-07-22 09:32 | MRI_ITS ---
STUDY: MRI LUMBAR SPINE WITHOUT CONTRAST REASON FOR EXAM: Female, 82 years old. Radiculopathy and bilateral pain and numbness in the legs TECHNIQUE: Standardized fat and water weighted pulse sequences were obtained in the sagittal and axial planes. COMPARISON: None FINDINGS: T12-L1: Bulging annulus and central disc protrusion with mild to moderate central canal stenosis and mild left foraminal stenosis. Normal lumbar lordosis. There is no substantial scoliosis. Normal conus medullaris that terminates at the L2 level. Large incidental vertebral body hemangiomata at the T12 and L1 levels. L1-2: Bulging annulus and bilateral facet hypertrophy with mild to moderate central canal stenosis and moderate bilateral foraminal stenoses. L2-3: Bulging annulus with moderate central canal stenosis and bilateral foraminal stenoses. L3-4: Bulging annulus and bilateral facet and ligamentum flavum hypertrophy with moderate central canal stenosis and moderate left and mild right foraminal stenoses. L4-5: Bulging annulus and bilateral facet and ligamentum flavum hypertrophy with moderate to severe right lateral recess stenosis and severe right and moderate left foraminal stenoses. L5-S1: Bulging annulus and bilateral facet hypertrophy with severe bilateral foraminal stenoses. Normal visualized sacral ala. Normal visualized paraspinous soft tissue structures. MRI/Spine Lumbar (Routine) IMPRESSION: Multilevel degenerative disease as described. Severe foraminal stenoses are present on the right at L4-5 and bilaterally at L5-S1. Electronically Signed: Noe Ortiz MD at 10:38 EDT Tel , Service support ,
--- NOTE | 2018-07-22 10:32 | RAD_ITS ---
STUDY: X-RAY - LUMBOSACRAL SPINE REASON FOR EXAM: Female, 82 years old. Pain down back of legs TECHNIQUE: 6 view(s) of the lumbosacral spine were obtained. COMPARISON: None FINDINGS: Normal alignment. Lower lumbar facet disease. Degenerative disc disease at the L1-2 level. No abnormal motion between flexion and extension. Aortic calcifications. No compression deformity. Cholecystectomy clips. RAD/L/S Spine w Bend Min 6 Vw IMPRESSION: Normal alignment. Lower lumbar facet disease. Degenerative disc disease at the L1-2 level. No abnormal motion between flexion and extension. Electronically Signed: Noe Ortiz MD at 11:21 EDT Tel , Service support ,
== END ==
PROVIDERS: Family Provider Family Medicine Geriatric Medicine; PCP Family Medicine Geriatric Medicine; Referring Provider Family Medicine Geriatric Medicine; Visit Provider Family Medicine Geriatric Medicine
DX: M54.16 Radiculopathy, lumbar region (principal)
CPT/HCPCS: 72114; 72148

== ENCOUNTER 2018-07-30 17:19 | Emergency (ER) | payer MEDICARE, SELFPAY ==
[2018-07-30 17:21] VITALS: BP 96/55; PULSE 94; RESP 16; TEMP 36.8; O2SAT 97; BMI 27.6
--- NOTE | 2018-07-30 17:41 | EKG12_ITS ---
Test Reason : CP Blood Pressure : / mmHG Vent. Rate : 096 BPM Atrial Rate : 096 BPM P-R Int : 134 ms QRS Dur : 098 ms QT Int : 378 ms P-R-T Axes : 044 -40 050 degrees QTc Int : 477 ms Normal sinus rhythm Left axis deviation Incomplete right bundle branch block Inferior infarct , age undetermined Abnormal ECG Confirmed by VINAY CORONA, CORY ([id number]), editorial project manager JUANIS PLUNKETT ([id number]) on 08/03/2018 3:57:20 PM Referred By: Brian Degroot Confirmed By:CORY MCLEAN MD
--- NOTE | 2018-07-30 18:06 | RAD_ITS ---
STUDY: X-RAY CHEST REASON FOR EXAM: Female, 82 years old. Cough TECHNIQUE: Frontal and lateral views COMPARISON: May 04, 2018 FINDINGS: Stable sternotomy wires. The lungs are clear and expanded. There is no demonstrated pleural abnormality. Normal size heart. Normal mediastinum and norma. Normal visualized pulmonary arteries. Normal visualized aortic arch and descending thoracic aorta. Degenerative changes of the thoracic spine. Old right rib fractures. There is no demonstrated abnormality of the visualized soft tissue structures of the upper abdomen. RAD/Chest PA and Lateral IMPRESSION: No acute pulmonary pathology of the chest. Electronically Signed: Ray Fleming DO at 18:34 EDT Tel [phone], Service support ,
[2018-07-30 18:13] LABS: Absolute Lymphocyte Count 2.37 X10^3/ul (0.83-4.51); Absolute Neutrophil Count 6.8 X10^3/uL (2.0-7.7); Basophil# 0.03 X10^3/uL; Basophil% 0.3 % (0-1); Eosinophil# 0.12 X10^3/uL; Eosinophils% 1.2 % (0-5); Hematocrit 29.5 % (37-47); Hemoglobin 9.9 g/dl (12.0-15.0); Lymphocyte # 2.37 X10^3/ul (4.0); Lymphocyte % 22.8 % (19-41); Mean Corp Hgb Conc 33.6 g/gl (32-36); Mean Corpuscular Hgb 27.9 pg (27.0-32.0); Mean Corpuscular Volume 83.1 fL (81-99); Mean Platelet Vol. 9.8 fl (6.2-12.0); Monocyte% 9.6 % (0-10); Neutrophil # 6.84 X10^3/uL (2.7-7.7); Neutrophil % 65.6 % (47-70); Platelet Count 365 K/mm3 (150-450); RBC Distribution Width CV 14.2 % (11.6-14.6); RBC Distribution Width SD 43.4 fl (35.1-43.9); Red Blood Count 3.55 M/mm3 (4.2-5.4); White Blood Count 10.4 K/mm3 (4.4-11.0)
[2018-07-30 18:15] LABS: POSITIVE COUNT NO; POSITIVE DIFFERENTIAL NO; POSITIVE MORPHOLOGY NO
[2018-07-30 18:16] LABS: Erythrocyte Sedimentation Rate 67 mm/hr (0-30)
[2018-07-30 18:29] LABS: ALB/GLOB Ratio 0.7 RATIO (0.9-2.4); AST(SGOT) 8 U/L (15-37); Alanine Aminotransfer ALT/SGPT 15 U/L (13-56); Albumin, Serum 2.8 g/dL (3.2-5.0); Alkaline Phosphatase 72 U/L (45-117); Anion Gap 11 (5-15); BUN 32 mg/dL (7-18); BUN/Creat Ratio 27.6 RATIO (10-20); CPK Total, Creatine Kinase 28 U/L (26-192); Calcium,Total 9.2 mg/dL (8.5-10.1); Chloride 97 mmol/L (98-107); Creatinine, Serum 1.16 mg/dL (0.55-1.02); EST Glomerular Filtration Rate 48 mL/min (>60); Est Glom Filt Rate - Afr Amer 58 mL/min (>60); Globulin 3.9 g/dL (2.2-4.2); Glucose 227 mg/dL (74-106); Potassium 2.8 mmol/L (3.5-5.1); Protein, Total 6.7 g/dL (6.4-8.2); Sodium Level 135 mmol/L (136-145)
--- NOTE | 2018-07-30 18:56 | CT_ITS ---
STUDY: CT BRAIN WITHOUT CONTRAST REASON FOR EXAM: Female, 82 years old. Weakness, legionnaires disease RADIATION DOSAGE (If Supplied By Facility): CTDIvol = ( 60.81 ) mGy, DLP = ( 1267.55 ) mGycm TECHNIQUE: Transaxial CT imaging of the brain was performed without administration of intravenous contrast material. Individualized dose optimization techniques were used for this CT. COMPARISON: None. FINDINGS: Normal soft tissue structures. Normal calvarium. Normal size ventricles and extra-axial spaces for the patient's age. Mild white matter microangiopathic ischemic changes of the cerebral hemispheres. Normal basal ganglia and thalami. Normal brainstem. Normal cerebellum. There is no intracranial hemorrhage. There are no findings of an acute ischemic infarction. Normal visualized paranasal sinuses. CT/Brain/Head without Contrast IMPRESSION: Mild age-related changes of the brain. Electronically Signed: Ray Fleming DO at 19:43 EDT Tel [phone], Service support ,
[2018-07-30 19:06] LABS: Bedside Glucose 221 mg/dL (70-110)
[2018-07-30 19:15] LABS: Bacteria 0 SEEN /hpf (None Seen); Mucous, Urine 0 SEEN /hpf (<or=2+); Red Blood Cells-Urine 0 SEEN /hpf (0-5)
[2018-07-30 19:17] LABS: Color, Urine Yellow (Yellow); Glucose, Dipstick Normal (Normal); Ketone-Dipstick 5 mg/dl (Negative); Leukocyte Esterase-Dipstick 25 /ul (Negative); Nitrite-Dipstick Negative (Negative); Occult Blood-Urine Negative /ul (Negative); Protein-Dipstick 15 mg/dl (Negative); Specific Gravity, Urine 1.025 (1.002-1.030); Urine Bilirubin Dipstick Negative (Negative); Urine Clarity Sl. Cloudy (Clear); Urine Urobilinogen 1 mg/dl (Normal)
[2018-07-30 19:24] LABS: Amorphous Sediment 1+; Hyaline Cast 5-10 SEEN /lpf (0-5); Squamous Epithelial Cells - UA 5-10 SEEN /hpf (5-10)
[2018-07-30 19:25] LABS: White Blood Cells 0-5 SEEN /hpf (0-5)
[2018-07-30 20:02] VITALS: BP 126/65; PULSE 88; RESP 16; O2SAT 95
--- NOTE | 2018-07-30 20:46 | ED.VISSUMM ---
- ER Visit Summary Date of Service: 07/30/18 Chief Complaint: Myalgias History of Present Illness: The patient is a 82 F who presents to the emergency department with pain in bilateral arms and thighs. Patient's been having this pain intermittently for the past 4 months. She did have Legionella pneumonia. It was thought that her muscle pain was secondary to her legionnaires disease. She has not had weakness. She denies any chest pain or shortness of breath. She is actually scheduled to see pain management, but not until Friday. She states that her pain is gotten worse over the past 2 days. She states it comes in waves. If she continues to move, does seem to make her pain better. She has been taking Tylenol with little relief. Physical Examination: Vital signs reviewed General: Well-nourished, well-developed Head: Normocephalic, atraumatic Eyes: Pupils equal and reactive, extraocular muscles intact Neck, supple, no lymphadenopathy Heart: Regular rate and rhythm Respiratory: No distress, clear bilaterally Abdomen: Soft, nontender, nondistended, no peritoneal signs Back: Nontender Extremities: Nontender, no edema, no cords Skin: Normal color no rash Neuro: Alert and oriented, no focal or lateralizing deficits Test Results: [] Emergency Department Course and Treatment: The patient presents with diffuse myalgias. It involves her arms and legs. There are some components that definitely seem autoimmune or inflammatory. IV was established. Screening labs were obtained. The patient's ESR is mildly elevated at 67, but I am not sure if this represents an acute polymyalgia rheumatica. The patient was also significantly hypokalemic with a potassium of 2.8. This was replaced IV. Her EKG shows no evidence of prolonged QT. While in the emergency department, the patient did have a short run of SVT that broke spontaneously. She does have a history of this. I obtained a chest x-ray which was unremarkable. Her head CT was unremarkable. Her urine shows no evidence of infection. She has not had a fever or chills. Her muscle enzymes are normal. I do not suspect rhabdo. On reevaluation, she is resting comfortably. I am going to increase the patient's potassium replacement. She is scheduled to see pain management on Friday. She was counseled on concerning symptoms and reasons to return. At this time, given her improvement of symptoms I do feel that she is safe to continue her outpatient therapy given the chronicity of the symptoms. The patient will be discharged home. Treatment Plan: [] Disposition: Discharge Impression: 1. Myalgias 2. Hypokalemia This note was generated with [employer] dictation software. It may contain incorrect words, spelling, and punctuation that were not noted in review of the chart prior to signing ED Disposition - Plan for ED Patient: Chief Complaint: Other, Pain/Inj Instructions: ED Potassium Deficiency Prescriptions: Potassium Chloride [K-Tab ER] 20 meq PO TID #60 tablet.er Referrals: Brian Degroot Chi, MD [Primary Care Provider] -
[2018-07-30 21:11] VITALS: BP 120/78; PULSE 94; RESP 20; O2SAT 97
[2018-07-30 22:00] VITALS: BP 138/70; PULSE 95; RESP 26; O2SAT 96
[2018-07-30 22:23] VITALS: BP 145/76; PULSE 92; RESP 18; O2SAT 96
== END 2018-07-30 22:29 | disposition home or self-care (01) ==
PROVIDERS: Emergency Provider Emergency Medicine; Family Provider Family Medicine Geriatric Medicine; PCP Family Medicine Geriatric Medicine
DX: M79.10 Myalgia, unspecified site (principal); E87.6 Hypokalemia; I25.10 Atherosclerotic heart disease of native coronary artery without angina pectoris; I10 Essential (primary) hypertension; Z95.1 Presence of aortocoronary bypass graft; Z79.82 Long term (current) use of aspirin; Z79.899 Other long term (current) drug therapy
CPT/HCPCS: 70450; 71046; 80053; 81001; 82550; 82962; 84484; 85025; 85652; 93005; 96365; 96366; 99284; J7030; A4216

== ENCOUNTER → 2018-08-03 13:20 | Outpatient (CLI) | payer MEDICARE, SELFPAY ==
--- NOTE | 2018-08-03 13:45 | RAD_ITS ---
STUDY: X-RAY - CERVICAL SPINE REASON FOR EXAM: Female, 82 years old. Neck pain TECHNIQUE: 2 view(s) of the cervical spine were obtained. COMPARISON: None FINDINGS: Normal anterior atlantoaxial articulation. Normal odontoid process. There is multi-level endplate spondylosis. There is multi-level degenerative disc disease with multilevel disc space narrowing. The soft tissue structures are unremarkable. RAD/Cerv Spine 2 or 3 Views IMPRESSION: 2 views only. Degenerative changes of the C-spine Electronically Signed: Sulaiman Braswell DO at 10:56 EST Tel , Service support ,
--- NOTE | 2018-08-03 13:55 | RAD_ITS ---
STUDY: X-RAY - RIGHT SHOULDER REASON FOR EXAM: Female, 82 years old. Shoulder pain TECHNIQUE: 2 view(s) of the shoulder. COMPARISON: None. FINDINGS: There are degenerative changes of the acromioclavicular joint. There is internal rotation of the humeral head. Old healed fractures of some of the right upper ribs. No acute fractures. RAD/Shoulder min 2 Views IMPRESSION: Mild degenerative changes of the acromioclavicular joint. No acute fracture Electronically Signed: Jovanny Palacios MD at 2:09 EST Tel , Service support ,
== END ==
PROVIDERS: Family Provider Family Medicine Geriatric Medicine; PCP Family Medicine Geriatric Medicine; Referring Provider Anesthesiology Pain Medicine; Visit Provider Anesthesiology Pain Medicine
DX: M47.892 Other spondylosis, cervical region (principal); M50.30 Other cervical disc degeneration, unspecified cervical region; M48.02 Spinal stenosis, cervical region; M19.011 Primary osteoarthritis, right shoulder
CPT/HCPCS: 72040; 73030

== ENCOUNTER 2018-08-04 04:39 | Observation (INO) | payer MEDICARE, SELFPAY ==
[2018-08-04] VITALS (9 sets, daily range): BP systolic 115–159; BP diastolic 72–98; PULSE 85–104; RESP 16–20; TEMP 36.6–36.9; O2SAT 93–97; BMI 30.2; BMI 29.1
--- NOTE | 2018-08-04 05:02 | RAD_ITS ---
STUDY: X-RAY - ABDOMEN/PELVIS REASON FOR EXAM: Female, 82 years old. Constipation TECHNIQUE: 2 views COMPARISON: None. FINDINGS: Surgical clips in the right upper quadrant indicate previous cholecystectomy. There is a mild degree of fecal stasis but no bowel distention or free intraperitoneal air. There are degenerative changes involving the lower thoracic and lumbosacral spines. Both hip joints are normal. RAD/Abdomen Single View IMPRESSION: Mild fecal stasis. Nothing acute Electronically Signed: Jovanny Palacios MD at 5:57 EST Tel , Service support ,
[2018-08-04 05:21] LABS: Absolute Lymphocyte Count 1.54 X10^3/ul (0.83-4.51); Absolute Neutrophil Count 10.9 X10^3/uL (2.0-7.7); Basophil# 0.01 X10^3/uL; Basophil% 0.1 % (0-1); Eosinophil# 0.07 X10^3/uL; Eosinophils% 0.5 % (0-5); Hemoglobin 9.7 g/dl (12.0-15.0); Lymphocyte # 1.54 X10^3/ul (4.0); Lymphocyte % 11.3 % (19-41); Mean Corp Hgb Conc 32.3 g/gl (32-36); Mean Corpuscular Hgb 27.5 pg (27.0-32.0); Mean Platelet Vol. 9.8 fl (6.2-12.0); Monocyte# 1.07 X10^3/uL; Monocyte% 7.8 % (0-10); Neutrophil # 10.91 X10^3/uL (2.7-7.7); Neutrophil % 79.7 % (47-70); Platelet Count 382 K/mm3 (150-450); RBC Distribution Width CV 14.5 % (11.6-14.6); RBC Distribution Width SD 45.2 fl (35.1-43.9); Red Blood Count 3.53 M/mm3 (4.2-5.4); White Blood Count 13.7 K/mm3 (4.4-11.0)
[2018-08-04 05:23] LABS: POSITIVE COUNT NO; POSITIVE DIFFERENTIAL NO; POSITIVE MORPHOLOGY NO
[2018-08-04] MEDS: Ondansetron 4 MG/2 ML Vial IV (05:26)
[2018-08-04] MEDS: Morphine 4 MG/ML Syringe IV (05:26)
[2018-08-04 05:38] LABS: Erythrocyte Sedimentation Rate 66 mm/hr (0-30)
--- NOTE | 2018-08-04 05:58 | NURSING ---
PATIENT IS SLEEPING CURRENTLY.
[2018-08-04 05:59] LABS: ALB/GLOB Ratio 0.6 RATIO (0.9-2.4); AST(SGOT) 6 U/L (15-37); Alanine Aminotransfer ALT/SGPT 15 U/L (13-56); Albumin, Serum 2.5 g/dL (3.2-5.0); Alkaline Phosphatase 64 U/L (45-117); Anion Gap 11 (5-15); BUN 27 mg/dL (7-18); BUN/Creat Ratio 29.1 RATIO (10-20); CPK Total, Creatine Kinase 20 U/L (26-192); Calcium,Total 8.8 mg/dL (8.5-10.1); Chloride 96 mmol/L (98-107); Creatinine, Serum 0.93 mg/dL (0.55-1.02); EST Glomerular Filtration Rate 62 mL/min (>60); Est Glom Filt Rate - Afr Amer 75 mL/min (>60); Estimated Creatinine Clearance 41.66 ml/min; Globulin 3.9 g/dL (2.2-4.2); Glucose 360 mg/dL (74-106); Potassium 3.5 mmol/L (3.5-5.1); Protein, Total 6.4 g/dL (6.4-8.2); Sodium Level 133 mmol/L (136-145)
[2018-08-04 05:59] LABS: Bacteria 0 SEEN /hpf (None Seen); Mucous, Urine 0 SEEN /hpf (<or=2+); Red Blood Cells-Urine 0 SEEN /hpf (0-5)
[2018-08-04 06:18] LABS: Color, Urine Yellow (Yellow); Glucose, Dipstick 1000 mg/dl (Normal); Ketone-Dipstick 5 mg/dl (Negative); Leukocyte Esterase-Dipstick 25 /ul (Negative); Nitrite-Dipstick Negative (Negative); Occult Blood-Urine Negative /ul (Negative); Protein-Dipstick Negative (Negative); Specific Gravity, Urine 1.015 (1.002-1.030); Urine Bilirubin Dipstick Negative (Negative); Urine Clarity Sl. Cloudy (Clear); Urine Urobilinogen Normal (Normal)
[2018-08-04 06:21] LABS: Squamous Epithelial Cells - UA 5-10 SEEN /hpf (5-10); White Blood Cells 0-5 SEEN /hpf (0-5)
[2018-08-04] MEDS: MethylPREDNISolone 125 MG/2 ML Vial IV (06:52)
[2018-08-04] MEDS: Morphine 2 MG/ML Syringe IV (06:52)
--- NOTE | 2018-08-04 07:07 | HP.PCM_ITS ---
History of Present Illness Date of Admission: 08/04/18 Chief Complaint: Generalized pain and weakness. The patient is a 82 year old F with an extensive past medical history as listed below. She was admitted through the ED with a complaint of generalized pain which had been going on for some months. Patient had Legionella pneumonia 5 months ago when she traveled to [place] to visit her grandchildren. Subsequent to that patient has been very weak and has been worsening. She has been seen multiple times in the ED for this last one being about a couple of days ago. She had followed up with pain management and was due to have a pain block done on Friday. However generalized pain persisted and so she decided to come into the ED. She denied any fever or chills, cough or chest pain, any shortness of breath, abdominal pain, any diarrhea vomiting. She is unable to carry out activities of daily living because of the generalized pain and was really discomforted about this. Vital signs were unremarkable. Labs showed elevated CRP of 55 and ESR of 60 and she also had mild leukocytosis of around 13. She was started on IV pain medication is been admitted to be managed for generalized chronic pain. 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) VWL-NSD-Yrzw-Mid OM1 w/ 2.25 x 12 mm Promus Premier 12/30/2013 HEN-UYL-RXP-Prox-Mid OM2 w/ 3.0 x 23 mm Promus Stent 03/05/2010 LAX-NDC-USB-OM2 w/ Taxus Stent 04/2006 CABG x 3 SVG to D1, SVG-OM & SVG-RCA History of coronary artery stent placement (Chronic 12/30/13) NZX-OFW-Jaoo-Mid OM1 w/ 2.25 x 12 mm Promus Premier 12/30/2013 WIW-IEV-UWU-Prox-Mid OM2 w/ 3.0 x 23 mm Promus Stent 03/05/2010 TDS-RZB-RKP-OM2 w/ Taxus Stent 04/2006 H/O coronary artery bypass surgery (Chronic 09/08/92) CABG x 3 SVG to D1, SVG-OM & SVG-RCA HLD (hyperlipidemia) (Chronic) TIA (transient ischemic attack) (Chronic) Carotid bruit (Chronic) Hypertension (Chronic) Medical History: Medical History (Last Updated 07/23/18 @ 13:02 by Elvira Knight) GI bleed (Chronic) K92.2 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 myocardial infarction (Chronic) I25.2 Atherosclerosis of coronary 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 (Chronic) I25.810 EIA-FTP-Tmxu-Mid OM1 w/ 2.25 x 12 mm Promus Premier 12/30/2013 PRK-OUZ-UOS-Prox-Mid OM2 w/ 3.0 x 23 mm Promus Stent 03/05/2010 FEJ-QYT-TAG-OM2 w/ Taxus Stent 04/2006 CABG x 3 SVG to D1, SVG-OM & SVG-RCA SVT (supraventricular tachycardia) (Acute) I47.1 Sepsis (Acute) A41.9 HLD (hyperlipidemia) (Chronic) E78.5 TIA (transient ischemic attack) (Chronic) G45.9 Carotid bruit (Chronic) R09.89 Hypertension (Chronic) I10 Acute esophagitis K20.9 Blood in stool K92.1 Type 2 diabetes mellitus without complications E11.9 Pneumonia J18.9 Abnormal finding on cardiovascular stress test (Inactive) R94.39 Allergies No Known Allergies Allergy (Verified 08/04/18 04:40) Home Medications: Ambulatory Orders Medication Instructions Recorded Levothyroxine [Synthroid] 137 mcg PO DAILY 10/13/13 Potassium Chloride [Klor-Con 10] 20 meq PO BID 10/13/13 Nitroglycerin [Nitrostat] 0.4 mg SUBLINGUAL Q5M PRN 12/21/13 ergocalciferol (vitamin D2) 50,000 50,000 unit PO QMONTH 11/18/17 unit capsule atorvastatin 20 mg tablet 40 mg PO QHS tab 11/24/17 Amlodipine [Norvasc] 5 mg PO DAILY 03/31/18 Glipizide/Metformin HCl 2 ea PO BID 03/31/18 [Glipizide-Metformin 2.5-500 mg] Valsartan/Hydrochlorothiazide 320 mg PO DAILY 03/31/18 [Valsartan-Hctz 320-25 mg Tab] insulin glargine (U-300) conc. 300 27 unit SC QDAY PRN ml 04/08/18 unit/mL (3 mL) subcutaneous pen Metoprolol(XL)Succ [Toprol Xl 50 mg PO DAILY 04/22/18 (Beta Antwon)] Aspirin [Aspirin, Baby] 81 mg PO DAILY@0800 07/30/18 Isosorbide Mononitrate [Isosorbide 30 mg PO QAM 08/04/18 Mononitrate ER] Surgical History: Surgical History (Last Updated 07/23/18 @ 13:03 by Elvira Knight) History of coronary artery stent placement (Chronic) Onset Date: 12/30/13 Z95.5 HLF-XNU-Mtip-Mid OM1 w/ 2.25 x 12 mm Promus Premier 12/30/2013 DVS-RQE-WOH-Prox-Mid OM2 w/ 3.0 x 23 mm Promus Stent 03/05/2010 WRR-QTL-BBG-OM2 w/ Taxus Stent 04/2006 H/O coronary artery bypass surgery (Chronic) Onset Date: 09/08/92 Z95.1 CABG x 3 SVG to D1, SVG-OM & SVG-RCA History bilateral cataract surgery History of esophagogastroduodenoscopy (EGD) Onset Date: ~04/24/18 Z98.890 History of esophagogastroduodenoscopy (EGD) Onset Date: ~06/23/18 Z98.890 History of hemorrhoidectomy Z98.890 History of laparoscopic cholecystectomy Z90.49 S/P colonoscopy Onset Date: ~04/24/18 Z98.890 Surgical History: appendectomy, cholecystectomy, coronary bypass surgery, hysterectomy Psychiatric History: No pertinent psych hx ZOOKEEPER History: No pertinent ZOOKEEPER history Lives: With Family Smoking Status: Former smoker Alcohol: None Drugs: None - *Family History Maternal Family History: Family History (Last Reviewed 07/23/18 @ 13:03 by Elvira Knight) Mother Colon cancer Mother Heart disease History Items: Heart Disease Paternal Family History: Family History (Last Reviewed 07/23/18 @ 13:03 by Elvira Knight) Mother Colon cancer Mother Heart disease History Items: No pertinent history Review of Systems Constitutional: Reports: Malaise, Weakness, Fatigue. Denies: Chills, Fever, Weight Change Eyes: Denies: Blurred vision, Double vision HEENT: Denies: Head Aches, Sinus Congestion, Sinus Drainage Cardiovascular: Denies: Chest Pain, Chest Pressure, Chest Tightness, Edema, Heaviness, Palpitations Respiratory: Denies: Cough, Shortness of breath at rest, Sputum production Gastrointestinal: Denies: Abdominal Pain, Nausea, Vomiting Genitourinary: Denies: Dysuria Musculoskeletal: Reports: Arm Pain, Back Pain, Leg Pain, Muscle pain, Shoulder Pain, - - had generalised pain. Denies: Joint Pain, Joint Tenderness Skin: Denies: Rash, Wounds Neurological: Denies: Numbness, Tingling, Focal weakness Psychiatric: Denies: Anxiety, Depression, Homicidal Ideations, Suicidal Ideations Hematologic/ Lymphatic: Denies: Easy Bruising, Easy Bleeding VTE Information - Inpt Only VTE Present on Admission: No VTE Pharm Prophylaxis ordered?: Yes - Physical Exam General: Alert, Oriented x3, Cooperative, Lethargic, - - very uncomfortable, in significant generalised pain HEENT: Atraumatic, PERRLA, EOMI, Normocephalic Oral: Moist Mucosa Neck: Supple, No JVD, Negative Carotid Bruits Lungs: Clear to auscultation, Normal air movement, No rhonchi, No wheeze, No rales Cardiovascular: Regular rate, Regular Rhythm, Normal S1, Normal S2, No murmurs Abdomen: Bowel Sounds Present, Soft, Non Tender, Non-Distended, No Hepato- splenomegaly Extremities: No clubbing, No cyanosis, No edema, Capillary Refill Less than 3 Seconds Skin: No rashes, No breakdown Musculoskeletal: Tenderness - generalised tenderness; is tender wherever she is touched and kept on moaning. Unable to even sit up on her own Lymphatic: No Cervical, Supraclavicular, or Inguinal Adenopathy Neurological: Cranial nerves II-XII grossly intact, - - decreased power in all extremities (4/5) due to generalised pain Psych/Mental Status: Normal Affect, Appropriate, Alert and oriented to time, p lace, person, mood and affect Vital Signs Temp Pulse Resp BP Pulse Ox 98.3 F 90 16 146/98 H 96 08/04/18 04:40 08/04/18 06:54 08/04/18 06:54 08/04/18 06:54 08/04/18 06:54 Oxygen Delivery Method Nasal Cannula Weight: 176 lb 5.917 oz Body Mass Index (BMI) 30.2 Laboratory Tests Past 24 Hrs 08/04/18 08/04/18 08/04/18 05:14 05:14 05:14 WBC 13.7 H RBC 3.53 L Hgb 9.7 L Hct 30.0 L MCV 85.0 MCH 27.5 MCHC 32.3 RDW 14.5 RDW Differential 45.2 H Plt Count 382 MPV 9.8 Immature Gran % (Auto) 0.600 Neut % (Auto) 79.7 H Lymph % (Auto) 11.3 L [place] % (Auto) 7.8 Eos % (Auto) 0.5 Baso % (Auto) 0.1 Absolute Neuts (auto) 10.9 H Absolute Lymphs (auto) 1.54 Total Counted Not Reportable ESR 66 H Sodium 133 L Potassium 3.5 Chloride 96 L Carbon Dioxide 26.0 Anion Gap 11 BUN 27 H Creatinine 0.93 Estim Creat Clear Calc 41.66 Est GFR (MDRD) Af Amer 75 Est GFR (MDRD) Non-Af 62 BUN/Creatinine Ratio 29.1 H Glucose 360 H Calcium 8.8 Total Bilirubin 0.40 AST 6 L ALT 15 Alkaline Phosphatase 64 Total Creatine Kinase 20 L C-React Prot Ext Range 55.90 H Total Protein 6.4 Albumin 2.5 L Globulin 3.9 Albumin/Globulin Ratio 0.6 L Urine Color Cancelled Urine Clarity Cancelled Urine pH Cancelled Ur Specific [place] Cancelled U Specif Grav (Refrac) Cancelled Urine Protein Cancelled Urine Glucose (UA) Cancelled Urine Ketones Cancelled Urine Occult Blood Cancelled Urine Nitrite Cancelled Urine Bilirubin Cancelled Urine Urobilinogen Cancelled Ur Leukocyte Esterase Cancelled Urine RBC Cancelled Urine WBC Cancelled Ur Squamous Epith Cells Cancelled Ur Transition Epith Cell Cancelled Ur Renal Epithelial Cell Cancelled Calcium Oxalate Crystal Cancelled Uric Acid Crystals Cancelled Triple Phos Crystals Cancelled Other Crystals Cancelled Amorphous Sediment Cancelled Urine Bacteria Cancelled Hyaline Casts Cancelled Fine Granular Casts Cancelled Coarse Granular Casts Cancelled Waxy Casts Cancelled RBC Casts Cancelled WBC Casts Cancelled Urine Mucus Cancelled Urine Trichomonas Cancelled Urine Yeast Cancelled 08/04/18 05:50 WBC RBC Hgb Hct MCV MCH MCHC RDW RDW Differential Plt Count MPV Immature Gran % (Auto) Neut % (Auto) Lymph % (Auto) [place] % (Auto) Eos % (Auto) Baso % (Auto) Absolute Neuts (auto) Absolute Lymphs (auto) Total Counted ESR Sodium Potassium Chloride Carbon Dioxide Anion Gap BUN Creatinine Estim Creat Clear Calc Est GFR (MDRD) Af Amer Est GFR (MDRD) Non-Af BUN/Creatinine Ratio Glucose Calcium Total Bilirubin AST ALT Alkaline Phosphatase Total Creatine Kinase C-React Prot Ext Range Total Protein Albumin Globulin Albumin/Globulin Ratio Urine Color Yellow Urine Clarity Sl. Cloudy Urine pH 5.0 Ur Specific [place] 1.015 U Specif Grav (Refrac) Urine Protein Negative Urine Glucose (UA) 1000 H Urine Ketones 5 H Urine Occult Blood Negative Urine Nitrite Negative Urine Bilirubin Negative Urine Urobilinogen Normal Ur Leukocyte Esterase 25 H Urine RBC 0 SEEN Urine WBC 0-5 SEEN Ur Squamous Epith Cells 5-10 SEEN Ur Transition Epith Cell Ur Renal Epithelial Cell Calcium Oxalate Crystal Uric Acid Crystals Triple Phos Crystals Other Crystals Amorphous Sediment Urine Bacteria 0 SEEN Hyaline Casts Fine Granular Casts Coarse Granular Casts Waxy Casts RBC Casts WBC Casts Urine Mucus 0 SEEN Urine Trichomonas Urine Yeast Diagnostic Data KUB X-Ray 08/04/18 05:02 IMPRESSION: Mild fecal stasis. Nothing acute Electronically Signed: Jovanny Palacios MD at 5:57 EST Tel , Service support , Assessment/Plan All Active Problems (Last Updated 07/23/18 @ 13:02 by Elvira Knight) Lightheaded (Acute) Constipation (Acute) Legionella pneumonia (Acute) SVT (supraventricular tachycardia) (Acute) Sepsis (Acute) Pneumonia (Resolved) 82 y/o admitted with a complaint of generalised pain and weakness 1. Debility due to generalised weakness * unable to conduct her ADLs without help. Symptoms have been ongoing for the past 5 months since she got Legionella pneumonia * admit to Med Surg * PT/OT consult * fall precautions * case management consult for placement * 2. Generalised pain and weakness- differential includes polymyalgia rheumatica vs other autoimmune diseases * is severely debilitated. Did not have any tick bites or any rash. ESR and CRP are elevated. * Generalized symptoms with pain being mainly in his shoulders also fits with polymyalgia rheumatica. * Will check for DEANNE and rheumatologic panel. * CPK was only 20 * management as under 1. * Start prednisone 20 mg daily. Consult pain management. Patient was supposed to have Pain block on Friday and Dr. Mccartney is willing to do it was just in the hospital. * 3.Hyponatremia: Na is 133. Likely due to dehydration from decreased intake. Will hydrate and monitor. 4. Leukocytosis: No signs of infection. White cell count is 13.7. Will monitor and defer antibiotics for now. 5. Hypertension: On amlodipine, metoprolol and valsartan/HCTZ. 6. Diabetes mellitus: On insulin glargine 27 international units daily as well as glipizide and metformin. Accu-Cheks AC at bedtime. Insulin sliding scale. 7. CAD: On statin and Imdur. Also on aspirin and metoprolol 8. Hypothyroidism: on synthroid. TSH was 3.09 DVT prophylaxis: Heparin GI Prophylaxis: Famotidine CODE STATUS: Full code. * Patient counseled extensively about different types of CODE STATUS including full code, DNR CCA and DNR CCA. Patient elects to be full code. Total eyoe-tt-ipat time 16 minutes. Code Visit Inpatient E&M: 52881 Init Hosp L3 Procedures: 74692 Advncd Care Plan 30 Min
--- NOTE | 2018-08-04 07:21 | ED.VISSUMM ---
- ER Visit Summary Date of Service: 08/04/18 Chief Complaint: Generalized pain History of Present Illness: The patient is a 82 F presenting for evaluation secondary generalized pain. Patient has a history of having a Legionella pneumonia within the last 5 months. Patient states that prior to that she was actually extremely active and did not have issues with chronic pain. Patient states that since then she has been having issues with migratory chronic pain. Patient states that associated with myalgias that will come and go. She is actually seen in the emergency department for this just couple days ago had a workup was found to be somewhat hypokalemic, and was discharged. Patient is establishing with pain management who feels that she has nerve damage and will require some nerve blocks. Patient states that over the course of the last couple of days however she has been having increasingly worse severe pain associated with generalized tenderness to palpation of her shoulders back and arms. She reports that she has some weakness in her right arm now at this point. She denies any presence of fevers. Patient is taking [place] at home does not seem to be alleviating her symptoms. Physical Examination: Vital signs are unremarkable. Well-nourished well-developed age-appropriate female visibly in pain. Head normocephalic. Moist mucous membranes. No JVD. Heart was somewhat tachycardic on my exam with normal rhythm. Lungs are clear. Abdomen was soft nontender. Patient exhibits diffuse tenderness to palpation of the chest back and upper extremities. Compartments are soft throughout with normal distal pulses. Patient has 2+ bilaterally symmetric lower extremity pitting edema. Patient appears to have normal strength and sensation. Test Results: CBC shows leukocytosis of 13, ESR is 60, CRP elevated at 55 Emergency Department Course and Treatment: Patient presented for evaluation secondary generalized pain. She was treated with morphine and Zofran. Repeat evaluation showed that she had continued pain. Patient does have some elevated inflammatory markers at this point. Patient potentially has a rheumatologic issue versus just chronic pain, but I was unable to control her pain with 2 doses of IV pain medication. Patient's daughter states that she is having extreme difficulty with caring for her at home and is not able to transfer her. I believe patient requires admission at this point. I discussed this with hospitalist. Disposition: Admission Impression: 1. Intractable pain 2. Functional decline This note was generated with [employer] software. It may contain incorrect words, spelling, and punctuation that were not noted in review of the chart prior to signing ED Disposition - Plan for ED Patient: Chief Complaint: Other, Pain/Inj
--- NOTE | 2018-08-04 08:36 | NURSING ---
This RN called Dr. Degroot's office and requested home med list. Same to be faxed. Lillian, medical sales associate states that pt was to have appointment yesterday and did not show up. She states they sent her to Dr. Mccartney and that they did xrays and she wasn't sure of the outcome.
[2018-08-04 09:36] LABS: Bedside Glucose 295 mg/dL (70-110)
[2018-08-04] MEDS: 0.9% NaCl Peripheral Flush Adult/Peds IV (10:03)
[2018-08-04] MEDS: 0.9% Normal Saline 1,000 ML 100 ML IV (10:03)
[2018-08-04 10:24] LABS: Thyroid Stim Hormone (TSH) 3.09 uIU/mL (0.358-3.74)
--- NOTE | 2018-08-04 11:33 | CASEMGMT ---
RN CM ASSESSMENT Pt presented to ER with generalized pain. Was seen in ER recently but dc'd to home. PCP: Dr. Degroot PHARMACY: [facility] [place] TRANSPORTATION: drives LIVING ARRANGEMENTS: Lives alone in apartment, was independent in ADLs prior to this admission. DME: Wheeled walker, cane, grab bars PT/OT: max assist for dressing lower body, moderate for bathing upper body. required support for balance. Ambulated 100' but was unsteady without UE support, declined to use walker. DC PLAN: undetermined. Will cont to follow PT/OT progress. May need home health or outpt therapy on dc.
[2018-08-04] MEDS: predniSONE 20 MG Tablet PO (12:17)
[2018-08-04 12:25] LABS: Bedside Glucose 485 mg/dL (70-110)
[2018-08-04] MEDS: Magnesium Hydroxide 30 ML UDC PO (12:35)
[2018-08-04 12:47] LABS: Glucose 450 mg/dL (74-106)
[2018-08-04] MEDS: Insulin Lispro 100 UNIT/ML INSULN.PEN SC ×3 (13:08→21:53)
[2018-08-04 14:26] LABS: Bedside Glucose 438 mg/dL (70-110)
[2018-08-04 16:26] LABS: Bedside Glucose 376 mg/dL (70-110)
[2018-08-04] MEDS: glipiZIDE 5 MG Tablet 2.5 MG PO (18:11)
[2018-08-04 18:50] LABS: Bedside Glucose 409 mg/dL (70-110)
[2018-08-04 22:05] LABS: Bedside Glucose 305 mg/dL (70-110)
[2018-08-05] VITALS (18 sets, daily range): BP systolic 131–154; BP diastolic 63–108; PULSE 66–102; RESP 14–18; TEMP 36.4–36.8; O2SAT 95–98; BMI 29.1
[2018-08-05 05:53] LABS: Absolute Lymphocyte Count 2.36 X10^3/ul (0.83-4.51); Absolute Neutrophil Count 11.6 X10^3/uL (2.0-7.7); Basophil# 0.02 X10^3/uL; Basophil% 0.1 % (0-1); Eosinophil# 0.02 X10^3/uL; Eosinophils% 0.1 % (0-5); Hemoglobin 9.8 g/dl (12.0-15.0); Lymphocyte # 2.36 X10^3/ul (4.0); Lymphocyte % 15.3 % (19-41); Mean Corp Hgb Conc 32.7 g/gl (32-36); Mean Corpuscular Hgb 27.9 pg (27.0-32.0); Mean Corpuscular Volume 85.5 fL (81-99); Monocyte# 1.28 X10^3/uL; Monocyte% 8.3 % (0-10); Neutrophil # 11.61 X10^3/uL (2.7-7.7); Neutrophil % 75.4 % (47-70); Platelet Count 429 K/mm3 (150-450); Prothrombin Time (Protime)PT. 12.7 SECONDS (11.7-14.9); RBC Distribution Width CV 14.2 % (11.6-14.6); Red Blood Count 3.51 M/mm3 (4.2-5.4); White Blood Count 15.4 K/mm3 (4.4-11.0)
[2018-08-05 06:00] LABS: POSITIVE COUNT NO; POSITIVE DIFFERENTIAL NO; POSITIVE MORPHOLOGY NO
[2018-08-05 06:20] LABS: Anion Gap 9 (5-15); BUN 28 mg/dL (7-18); BUN/Creat Ratio 31.6 RATIO (10-20); Calcium,Total 8.9 mg/dL (8.5-10.1); Chloride 104 mmol/L (98-107); Creatinine, Serum 0.89 mg/dL (0.55-1.02); EST Glomerular Filtration Rate 65 mL/min (>60); Est Glom Filt Rate - Afr Amer 79 mL/min (>60); Estimated Creatinine Clearance 43.53 ml/min; Glucose 229 mg/dL (74-106); Potassium 3.8 mmol/L (3.5-5.1); Sodium Level 140 mmol/L (136-145)
[2018-08-05 06:51] LABS: Bedside Glucose 227 mg/dL (70-110)
[2018-08-05] MEDS: Metoprolol(XL)Succ 50 MG Tablet PO (07:57)
[2018-08-05] MEDS: Aspirin 81 MG TAB.CHEW PO (07:57)
[2018-08-05] MEDS: hydroCHLOROthiazide 25 MG Tablet PO (07:57)
[2018-08-05] MEDS: glipiZIDE 5 MG Tablet 2.5 MG PO ×2 (07:57→16:38)
[2018-08-05] MEDS: amLODIPine 5 MG Tablet PO (07:59)
[2018-08-05] MEDS: predniSONE 20 MG Tablet PO (07:59)
[2018-08-05] MEDS: Isosorbide Mononitrate 30 MG Tablet PO (08:01)
[2018-08-05 09:48] LABS: Hemoglobin A1c 10.5 % (4.2-6.3)
--- NOTE | 2018-08-05 10:18 | PCM.PN.HOSP ---
Subjective: Patient seen and examined. She feels much better. She has no complaints. Pain is improved significantly and she is now able to get up and ambulate. She denies any fever chills, cough or chest pain, any shortness of breath, abdominal pain, any diarrhea vomiting. She says she is never had back pain and pain is mainly in her shoulders and pelvic girdle. Review of systems otherwise negative. She is due to have a pain block by Dr. Mccartney today. Vitals/I&O's: Vital Signs Temp Pulse Resp BP Pulse Ox 98.0 F 95 18 143/108 H 96 08/05/18 07:55 08/05/18 08:11 08/05/18 08:11 08/05/18 07:55 08/05/18 07:55 Oxygen Delivery Method Room Air Weight: 169 lb 12.095 oz Body Mass Index (BMI) 29.1 Intake and Output for Last 24 Hours 08/03/18 08/04/18 08/05/18 23:59 23:59 23:59 Intake Total 687 / 687 786 / 786 Output Total 200 / 200 800 / 800 Balance 487 / 487 -14 / -14 General: Alert, Oriented x3, Cooperative, No apparent distress HEENT: Atraumatic, PERRLA, EOMI, Normocephalic Oral: Moist Mucosa Neck: Supple, No JVD, Negative Carotid Bruits Lungs: Clear to auscultation, Normal air movement, No rhonchi, No wheeze, No rales Cardiovascular: Regular rate, Regular Rhythm, Normal S1, Normal S2, No murmurs Abdomen: Bowel Sounds Present, Soft, Non Tender, Non-Distended, No Hepato-splenomegaly Extremities: No clubbing, No cyanosis, No edema, Capillary Refill Less than 3 Seconds Skin: No rashes, No breakdown Musculoskeletal: No Tenderness to Palpation of Joints or Extremities Lymphatic: No Cervical, Supraclavicular, or Inguinal Adenopathy Neurological: Cranial nerves II-XII grossly intact Psych/Mental Status: Normal Affect, Appropriate, Alert and oriented to time, place, person, mood and affect Laboratory Results 08/04/18 09:40: TSH 3.09 08/04/18 12:14: POC Glucose 485 H* 08/04/18 12:25: Glucose 450 H 08/04/18 14:23: POC Glucose 438 H 08/04/18 16:12: POC Glucose 376 H 08/04/18 18:03: POC Glucose 409 H 08/04/18 21:47: POC Glucose 305 H 08/05/18 05:35: WBC 15.4 H, RBC 3.51 L, Hgb 9.8 L, Hct 30.0 L, MCV 85.5, MCH 27.9, MCHC 32.7, RDW 14.2, RDW Differential 43.0, Plt Count 429, MPV 10.0, Immature Gran % (Auto) 0.800, Neut % (Auto) 75.4 H, Lymph % (Auto) 15.3 L, [place] % (Auto) 8.3, Eos % (Auto) 0.1, Baso % (Auto) 0.1, Absolute Neuts (auto) 11.6 H, Absolute Lymphs (auto) 2.36, Total Counted Not Reportable 08/05/18 05:35: Sodium 140, Potassium 3.8, Chloride 104, Carbon Dioxide 27.0, Anion Gap 9, BUN 28 H, Creatinine 0.89, Estim Creat Clear Calc 43.53, Est GFR (MDRD) Af Amer 79, Est GFR (MDRD) Non-Af 65, BUN/Creatinine Ratio 31.6 H, Glucose 229 H, Calcium 8.9 08/05/18 05:35: PT 12.7, INR 1.0 08/05/18 05:35: Hemoglobin A1c 10.5 H 08/05/18 06:42: POC Glucose 227 H Diagnostic Data KUB X-Ray 08/04/18 05:02 IMPRESSION: Mild fecal stasis. Nothing acute Electronically Signed: Jovanny Palacios MD at 5:57 EST Tel , Service support , Current Medications Amlodipine Besylate (Norvasc) 5 mg PO DAILY [facility] Last Admin: 08/05/18 07:59 Dose: 5 mg Aspirin (Aspirin, Baby) 81 mg PO DAILY@0800 [facility] Last Admin: 08/05/18 07:57 Dose: 81 mg Dextrose (D50w Syringe) 0 gm IV X1 PRN; Protocol PRN Reason: Hypoglycemia Ergocalciferol (Vitamin D) 50,000 unit PO QMONTH [facility] Last Admin: 08/04/18 21:52 Dose: 50,000 unit Glipizide (Glucotrol) 2.5 mg PO BIDCM [facility] Last Admin: 08/05/18 07:57 Dose: 2.5 mg Glucagon () 1 mg IM .X1 PRN PRN Reason: Hypoglycemia Heparin Sodium (Porcine) (Heparin Na) 5,000 unit SC Q8 [facility] Last Admin: 08/05/18 05:14 Dose: Not Given Hydrochlorothiazide (Hctz) 25 mg PO DAILY [facility] Last Admin: 08/05/18 07:57 Dose: 25 mg Sodium Chloride () 250 mls @ 15 mls/hr IV .[id number] PRN PRN Reason: SALINE FLUSH Insulin Glargine (Lantus (Bkc)) 27 units SC DAILY [facility] Last Admin: 08/05/18 10:12 Dose: 27 units Insulin Human Lispro (Humalog Kwikpen (Bkc)) 0 unit SC ACHS [facility]; Protocol Last Admin: 08/05/18 05:15 Dose: Not Given Isosorbide Mononitrate (Imdur) 30 mg PO QAM [facility] Last Admin: 08/05/18 08:01 Dose: 30 mg Levothyroxine Sodium (Synthroid) 137 mcg PO DAILY@0600 [facility] Last Admin: 08/05/18 05:15 Dose: Not Given Magnesium Hydroxide (Milk Of Magnesia) 30 ml PO DAILY PRN PRN PRN Reason: Constipation Last Admin: 08/04/18 12:35 Dose: 30 ml Metformin HCl (Glucophage) 1,000 mg PO BIDCM [facility] Last Admin: 08/05/18 07:58 Dose: 1,000 mg Metoprolol Succinate (Toprol Xl (Beta Antwon)) 50 mg PO DAILY [facility] Last Admin: 08/05/18 07:57 Dose: 50 mg Morphine Sulfate () 2 mg IV Q4H PRN PRN PRN Reason: SEVERE PAIN (6-10/10) Nitroglycerin (Nitrostat) 0.4 mg SUBLINGUAL Q5M PRN PRN Reason: Chest Pain Prednisone () 20 mg PO DAILY@0800 [facility] Last Admin: 08/05/18 07:59 Dose: 20 mg Sodium Chloride () 5 - 30 ml IV UD PRN PRN Reason: SALINE FLUSH Last Admin: 08/04/18 10:03 Dose: 10 ml Valsartan (Diovan) 320 mg PO DAILY [facility] Last Admin: 08/05/18 07:58 Dose: 320 mg Medical Necessity - Tobacco Use Smoking Status: Former smoker Assessment/Plan All Active Problems (Last Updated 07/23/18 @ 13:02 by Elvira Knight) Lightheaded (Acute) Constipation (Acute) Legionella pneumonia (Acute) SVT (supraventricular tachycardia) (Acute) Sepsis (Acute) Pneumonia (Resolved) 82 y/o admitted with a complaint of generalised pain and weakness 1. Debility due to generalised weakness and pain feels much better today after she was started on PO steroids yesterday was able to work with PT yesterday fall precautions says she would prefer to do outpatient PT as she has only associated security check and does not she can afford inpatient physical therapy treatment in a rehab facility. Discussed with caseworker intake since patient has insurance and so may be able to get inpatient physical therapy. To discuss with patient to see if she is okay with this. 2. Generalised pain and weakness due to probable Polymyalgia Rheumatica Other autoimmune disease can also not be ruled out. ESR and CRP were elevated but CPK was within normal limits. On p.o. prednisone 20 mg daily. Pain management on board. For pain block today. 3.Hyponatremia: resolved. Na is 140 today 4. Leukocytosis: White cell count is up to 15.4 from 13.7. May be due to steroids. Has no evidence of infection and denies any history of back pain and so the differential of epidural abscess is not high. will continue to monitor 5. Hypertension: On amlodipine, metoprolol and valsartan/HCTZ. 6. Diabetes mellitus: on lantus 27IU daily, glipizide as well as metformin. accuchecks ACHS. ISS 7. CAD: On statin and Imdur. Also on aspirin and metoprolol 8. Hypothyroidism: on synthroid. TSH was 3.09 DVT prophylaxis: Heparin GI Prophylaxis: Famotidine CODE STATUS: Full code. Disposition: Patient prefers to be discharged home to undertake outpatient physical therapy. plant operations manager to discuss with patient about option of inpatient rehab for physical therapy. Code Visit Inpatient E&M: 67341 Subs Hosp L2
--- NOTE | 2018-08-05 10:27 | PN_ITS ---
Subjective: Patient seen and examined. She feels much better. She has no complaints. Pain is improved significantly and she is now able to get up and ambulate. She denies any fever chills, cough or chest pain, any shortness of breath, abdominal pain, any diarrhea vomiting. She says she is never had back pain and pain is mainly in her shoulders and pelvic girdle. Review of systems otherwise negative. She is due to have a pain block by Dr. Mccartney today. Vitals/I&O's: Vital Signs Temp Pulse Resp BP Pulse Ox 98.0 F 95 18 143/108 H 96 08/05/18 07:55 08/05/18 08:11 08/05/18 08:11 08/05/18 07:55 08/05/18 07:55 Oxygen Delivery Method Room Air Weight: 169 lb 12.095 oz Body Mass Index (BMI) 29.1 Intake and Output for Last 24 Hours 08/03/18 08/04/18 08/05/18 23:59 23:59 23:59 Intake Total 687 / 687 786 / 786 Output Total 200 / 200 800 / 800 Balance 487 / 487 -14 / -14 General: Alert, Oriented x3, Cooperative, No apparent distress HEENT: Atraumatic, PERRLA, EOMI, Normocephalic Oral: Moist Mucosa Neck: Supple, No JVD, Negative Carotid Bruits Lungs: Clear to auscultation, Normal air movement, No rhonchi, No wheeze, No rales Cardiovascular: Regular rate, Regular Rhythm, Normal S1, Normal S2, No murmurs Abdomen: Bowel Sounds Present, Soft, Non Tender, Non-Distended, No Hepato- splenomegaly Extremities: No clubbing, No cyanosis, No edema, Capillary Refill Less than 3 Seconds Skin: No rashes, No breakdown Musculoskeletal: No Tenderness to Palpation of Joints or Extremities Lymphatic: No Cervical, Supraclavicular, or Inguinal Adenopathy Neurological: Cranial nerves II-XII grossly intact Psych/Mental Status: Normal Affect, Appropriate, Alert and oriented to time, place, person, mood and affect Laboratory Results 08/04/18 09:40: TSH 3.09 08/04/18 12:14: POC Glucose 485 H* 08/04/18 12:25: Glucose 450 H 08/04/18 14:23: POC Glucose 438 H 08/04/18 16:12: POC Glucose 376 H 08/04/18 18:03: POC Glucose 409 H 08/04/18 21:47: POC Glucose 305 H 08/05/18 05:35: WBC 15.4 H, RBC 3.51 L, Hgb 9.8 L, Hct 30.0 L, MCV 85.5, MCH 27.9, MCHC 32.7, RDW 14.2, RDW Differential 43.0, Plt Count 429, MPV 10.0, Immature Gran % (Auto) 0.800, Neut % (Auto) 75.4 H, Lymph % (Auto) 15.3 L, [place] % (Auto) 8.3, Eos % (Auto) 0.1, Baso % (Auto) 0.1, Absolute Neuts (auto) 11.6 H, Absolute Lymphs (auto) 2.36, Total Counted Not Reportable 08/05/18 05:35: Sodium 140, Potassium 3.8, Chloride 104, Carbon Dioxide 27.0, Anion Gap 9, BUN 28 H, Creatinine 0.89, Estim Creat Clear Calc 43.53, Est GFR (MDRD) Af Amer 79, Est GFR (MDRD) Non-Af 65, BUN/Creatinine Ratio 31.6 H, Glucose 229 H, Calcium 8.9 08/05/18 05:35: PT 12.7, INR 1.0 08/05/18 05:35: Hemoglobin A1c 10.5 H 08/05/18 06:42: POC Glucose 227 H Diagnostic Data KUB X-Ray 08/04/18 05:02 IMPRESSION: Mild fecal stasis. Nothing acute Electronically Signed: Jovanny Palacios MD at 5:57 EST Tel , Service support , Current Medications Amlodipine Besylate (Norvasc) 5 mg PO DAILY [facility] Last Admin: 08/05/18 07:59 Dose: 5 mg Aspirin (Aspirin, Baby) 81 mg PO DAILY@0800 [facility] Last Admin: 08/05/18 07:57 Dose: 81 mg Dextrose (D50w Syringe) 0 gm IV X1 PRN; Protocol PRN Reason: Hypoglycemia Ergocalciferol (Vitamin D) 50,000 unit PO QMONTH [facility] Last Admin: 08/04/18 21:52 Dose: 50,000 unit Glipizide (Glucotrol) 2.5 mg PO BIDCM [facility] Last Admin: 08/05/18 07:57 Dose: 2.5 mg Glucagon () 1 mg IM .X1 PRN PRN Reason: Hypoglycemia Heparin Sodium (Porcine) (Heparin Na) 5,000 unit SC Q8 [facility] Last Admin: 08/05/18 05:14 Dose: Not Given Hydrochlorothiazide (Hctz) 25 mg PO DAILY [facility] Last Admin: 08/05/18 07:57 Dose: 25 mg Sodium Chloride () 250 mls @ 15 mls/hr IV .[id number] PRN PRN Reason: SALINE FLUSH Insulin Glargine (Lantus (Bkc)) 27 units SC DAILY [facility] Last Admin: 08/05/18 10:12 Dose: 27 units Insulin Human Lispro (Humalog Kwikpen (Bkc)) 0 unit SC ACHS [facility]; Protocol Last Admin: 08/05/18 05:15 Dose: Not Given Isosorbide Mononitrate (Imdur) 30 mg PO QAM [facility] Last Admin: 08/05/18 08:01 Dose: 30 mg Levothyroxine Sodium (Synthroid) 137 mcg PO DAILY@0600 [facility] Last Admin: 08/05/18 05:15 Dose: Not Given Magnesium Hydroxide (Milk Of Magnesia) 30 ml PO DAILY PRN PRN PRN Reason: Constipation Last Admin: 08/04/18 12:35 Dose: 30 ml Metformin HCl (Glucophage) 1,000 mg PO BIDCM [facility] Last Admin: 08/05/18 07:58 Dose: 1,000 mg Metoprolol Succinate (Toprol Xl (Beta Antwon)) 50 mg PO DAILY [facility] Last Admin: 08/05/18 07:57 Dose: 50 mg Morphine Sulfate () 2 mg IV Q4H PRN PRN PRN Reason: SEVERE PAIN (6-10/10) Nitroglycerin (Nitrostat) 0.4 mg SUBLINGUAL Q5M PRN PRN Reason: Chest Pain Prednisone () 20 mg PO DAILY@0800 [facility] Last Admin: 08/05/18 07:59 Dose: 20 mg Sodium Chloride () 5 - 30 ml IV UD PRN PRN Reason: SALINE FLUSH Last Admin: 08/04/18 10:03 Dose: 10 ml Valsartan (Diovan) 320 mg PO DAILY [facility] Last Admin: 08/05/18 07:58 Dose: 320 mg Medical Necessity - Tobacco Use Smoking Status: Former smoker Assessment/Plan All Active Problems (Last Updated 07/23/18 @ 13:02 by Elvira Knight) Lightheaded (Acute) Constipation (Acute) Legionella pneumonia (Acute) SVT (supraventricular tachycardia) (Acute) Sepsis (Acute) Pneumonia (Resolved) 82 y/o admitted with a complaint of generalised pain and weakness 1. Debility due to generalised weakness and pain * feels much better today after she was started on PO steroids yesterday * was able to work with PT yesterday * fall precautions * says she would prefer to do outpatient PT as she has only associated security check and does not she can afford inpatient physical therapy treatment in a rehab facility. Discussed with case investigator since patient has insurance and so may be able to get inpatient physical therapy. To discuss with patient to see if she is okay with this. * * 2. Generalised pain and weakness due to probable Polymyalgia Rheumatica * Other autoimmune disease can also not be ruled out. * ESR and CRP were elevated but CPK was within normal limits. * On p.o. prednisone 20 mg daily. Pain management on board. For pain block today. * * 3.Hyponatremia: resolved. Na is 140 today 4. Leukocytosis: * White cell count is up to 15.4 from 13.7. * May be due to steroids. * Has no evidence of infection and denies any history of back pain and so the differential of epidural abscess is not high. * will continue to monitor * 5. Hypertension: On amlodipine, metoprolol and valsartan/HCTZ. 6. Diabetes mellitus: * on lantus 27IU daily, glipizide as well as metformin. * accuchecks ACHS. ISS * 7. CAD: On statin and Imdur. Also on aspirin and metoprolol 8. Hypothyroidism: on synthroid. TSH was 3.09 DVT prophylaxis: Heparin GI Prophylaxis: Famotidine CODE STATUS: Full code. Disposition: * Patient prefers to be discharged home to undertake outpatient physical therapy. diabetes territory manager to discuss with patient about option of inpatient rehab for physical therapy. Code Visit Inpatient E&M: 63382 Subs Hosp L2
--- NOTE | 2018-08-05 10:37 | NURSING ---
call placed to ac and report given to Ivonne Tavarez whom will be managing care for pt
--- NOTE | 2018-08-05 12:10 | RAD_ITS ---
STUDY: X-RAY - LUMBAR SPINE REASON FOR EXAM: Female, 82 years old. L4-L5 and L5-S1 transforaminal block. TECHNIQUE: 2 coned-down view(s) of the lumbar spine were obtained. COMPARISON: None FINDINGS: Intraoperative imaging provided for right L4-L5 and L5-S1 transforaminal block. RAD/Lumbar Spine 2 or 3 Views IMPRESSION: Intraoperative imaging provided for right L4-L5 and L5-S1 transforaminal block. Electronically Signed: Farzad Banks MD at 15:42 EST Tel [phone], Service support ,
[2018-08-05] MEDS: Triamcinolone Acetonide 40 MG/ML Vial (12:15)
--- NOTE | 2018-08-05 12:18 | CASEMGMT ---
RN EVELYN Note: Intro role of CM to daughter Blanca in room. Discussed per PT/OT pt could benefit from further therapy. RN EVELYN discussed Home with Home Health PT/OT/aide. Both daughters live out of town and are not able to be with pt daily. Discussed Home Health agency options in area. -call to Carol [facility], referral sent. She will check insurance and MARAH RIVAS will verify when pt returns from testing that this plan is agreeable to her. Vanessa MARADIAGAN RN ACM
--- NOTE | 2018-08-05 13:04 | NURSING ---
Back from surgery. Sleepy. Vital Signs obtained, see intervention. Aware that pt had [facility] [employer].
[2018-08-05 13:26] LABS: Bedside Glucose 214 mg/dL (70-110)
--- NOTE | 2018-08-05 13:41 | NURSING ---
Assisted pt in order lunch. Coffee, Water, and SF Jello given while waiting on food to come.
[2018-08-05] MEDS: Insulin Lispro 100 UNIT/ML INSULN.PEN SC ×3 (14:22→21:30)
[2018-08-05] MEDS: Magnesium Hydroxide 30 ML UDC PO (14:28)
[2018-08-05] MEDS: Heparin Injection (Vial) 5,000 UNIT/ML VIAL 5000 UNIT SC ×2 (14:30→21:17)
[2018-08-05 14:40] LABS: Bedside Glucose 272 mg/dL (70-110)
[2018-08-05 16:46] LABS: Bedside Glucose 360 mg/dL (70-110)
[2018-08-05 21:46] LABS: Bedside Glucose 312 mg/dL (70-110)
[2018-08-06 03:59] VITALS: PULSE 60
[2018-08-06 04:00] VITALS: BP 142/77; PULSE 80; RESP 18; TEMP 36.8; O2SAT 100
[2018-08-06 06:05] LABS: Anion Gap 9 (5-15); BUN 29 mg/dL (7-18); BUN/Creat Ratio 34.1 RATIO (10-20); Calcium,Total 8.9 mg/dL (8.5-10.1); Chloride 102 mmol/L (98-107); Creatinine, Serum 0.85 mg/dL (0.55-1.02); EST Glomerular Filtration Rate 68 mL/min (>60); Est Glom Filt Rate - Afr Amer 83 mL/min (>60); Estimated Creatinine Clearance 45.58 ml/min; Glucose 284 mg/dL (74-106); Sodium Level 137 mmol/L (136-145)
[2018-08-06] MEDS: Levothyroxine 137 MCG Tablet PO (06:36)
[2018-08-06] MEDS: Heparin Injection (Vial) 5,000 UNIT/ML VIAL 5000 UNIT SC (06:36)
[2018-08-06 06:39] LABS: Absolute Lymphocyte Count 1.85 X10^3/ul (0.83-4.51); Absolute Neutrophil Count 10.8 X10^3/uL (2.0-7.7); Basophil# 0.01 X10^3/uL; Basophil% 0.1 % (0-1); Hematocrit 30.5 % (37-47); Hemoglobin 9.8 g/dl (12.0-15.0); Lymphocyte # 1.85 X10^3/ul (4.0); Lymphocyte % 13.8 % (19-41); Mean Corp Hgb Conc 32.1 g/gl (32-36); Mean Corpuscular Hgb 27.5 pg (27.0-32.0); Mean Corpuscular Volume 85.7 fL (81-99); Mean Platelet Vol. 10.2 fl (6.2-12.0); Monocyte# 0.59 X10^3/uL; Monocyte% 4.4 % (0-10); Neutrophil # 10.84 X10^3/uL (2.7-7.7); Neutrophil % 80.9 % (47-70); Platelet Count 466 K/mm3 (150-450); RBC Distribution Width CV 14.4 % (11.6-14.6); RBC Distribution Width SD 45.1 fl (35.1-43.9); Red Blood Count 3.56 M/mm3 (4.2-5.4); White Blood Count 13.4 K/mm3 (4.4-11.0)
[2018-08-06] MEDS: Insulin Lispro 100 UNIT/ML INSULN.PEN SC ×2 (06:42→11:31)
[2018-08-06 06:45] LABS: POSITIVE COUNT NO; POSITIVE DIFFERENTIAL NO; POSITIVE MORPHOLOGY NO
[2018-08-06 06:51] LABS: Bedside Glucose 285 mg/dL (70-110)
[2018-08-06 08:25] VITALS: PULSE 92
[2018-08-06 08:31] VITALS: BP 141/71; PULSE 77; RESP 18; TEMP 36.6; O2SAT 98
[2018-08-06] MEDS: glipiZIDE 5 MG Tablet 2.5 MG PO (08:37)
[2018-08-06 08:38] VITALS: PULSE 77
[2018-08-06] MEDS: predniSONE 20 MG Tablet PO (08:38)
[2018-08-06] MEDS: amLODIPine 5 MG Tablet PO ×2 (08:38→08:39)
[2018-08-06] MEDS: Metoprolol(XL)Succ 50 MG Tablet PO (08:38)
[2018-08-06] MEDS: hydroCHLOROthiazide 25 MG Tablet PO (08:38)
[2018-08-06] MEDS: Aspirin 81 MG TAB.CHEW PO (08:39)
[2018-08-06] MEDS: Isosorbide Mononitrate 30 MG Tablet PO (08:40)
--- NOTE | 2018-08-06 10:45 | DCINST_ITS ---
You will use the following diet at home:: Cardiac Your food should be the consistency of: Regular Your liquids should be the consistency of: Regular/Thin Discharge Activity: Return to Normal Activity Weight Bearing Status: Weight bearing as tolerated Call your doctor if you observe: Fever of 101 or Higher, Uncontrolled pain Instructions: Erythrocyte Sedimentation Rate Allergies/Adverse Reactions: Allergies No Known Allergies Allergy (Verified 08/04/18 04:40) Medications to take at Discharge Levothyroxine [Synthroid] 137 mcg PO DAILY 10/13/13 Potassium Chloride [Klor-Con 10] 20 meq PO BID 10/13/13 Nitroglycerin [Nitrostat] 0.4 mg SUBLINGUAL Q5M PRN 12/21/13 ergocalciferol (vitamin D2) 50,000 unit capsule 50,000 unit PO QMONTH 11/18/17 atorvastatin 20 mg tablet 40 mg PO QHS tab 11/24/17 Amlodipine [Norvasc] 5 mg PO DAILY 03/31/18 Glipizide/Metformin HCl [Glipizide-Metformin 2.5-500 mg] 2 ea PO BID 03/31/18 Valsartan/Hydrochlorothiazide [Valsartan-Hctz 320-25 mg Tab] 320 mg PO DAILY 03/31/18 insulin glargine (U-300) conc. 300 unit/mL (3 mL) subcutaneous pen 27 unit SC QDAY ml 04/08/18 Metoprolol(XL)Succ [Toprol Xl (Beta Antwon)] 50 mg PO DAILY 04/22/18 Aspirin [Aspirin, Baby] 81 mg PO DAILY@0800 07/30/18 Isosorbide Mononitrate [Isosorbide Mononitrate ER] 30 mg PO QAM 08/04/18 Prednisone 20 mg PO DAILY #14 tablet 08/06/18 The following prescriptions were given: Prednisone 20 mg PO DAILY #14 tablet Primary Care Physician: Brian Degroot Chi, MD [Primary Care Provider] - Please follow up with your Primary Care Physician in: one week Test Results: Test results from this visit will be discussed in further detail at your follow- up appointment, if applicable. Please Follow Up With: Nori Saba MD When: 1-2 weeks; please call office for appointment
--- NOTE | 2018-08-06 10:45 | PCM.DC.SUM ---
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) QCL-PFQ-Zckj-Mid OM1 w/ 2.25 x 12 mm Promus Premier 12/30/2013 WCR-PWP-CYX-Prox-Mid OM2 w/ 3.0 x 23 mm Promus Stent 03/05/2010 KQQ-NJJ-DFD-OM2 w/ Taxus Stent 04/2006 CABG x 3 SVG to D1, SVG-OM & SVG-RCA History of coronary artery stent placement (Chronic 12/30/13) RLE-ZJA-Lzrt-Mid OM1 w/ 2.25 x 12 mm Promus Premier 12/30/2013 LVL-DZU-OIZ-Prox-Mid OM2 w/ 3.0 x 23 mm Promus Stent 03/05/2010 BTC-PDW-FBI-OM2 w/ Taxus Stent 04/2006 H/O coronary artery bypass surgery (Chronic 09/08/92) CABG x 3 SVG to D1, SVG-OM & SVG-RCA HLD (hyperlipidemia) (Chronic) TIA (transient ischemic attack) (Chronic) Carotid bruit (Chronic) Hypertension (Chronic) Hospital Course and Treatment Imaging Results: Diagnostic Data KUB X-Ray 08/04/18 05:02 IMPRESSION: Mild fecal stasis. Nothing acute Electronically Signed: Jovanny Palacios MD at 5:57 EST Tel , Service support , Lumbar Spine X-Ray 08/05/18 12:10 IMPRESSION: Intraoperative imaging provided for right L4-L5 and L5-S1 transforaminal block. Electronically Signed: Farzad Banks MD at 15:42 EST Tel [phone], Service support , pain management- Dr Mccartney Operations: None Procedures: - - Transforaminal epidural selective nerve root block at right L4-L5 and L5-S1 Summary of Care Provided: The patient is a 82 year old F with an extensive past medical history as listed below. She was admitted with a complaint of generalized pain which had been going on for some months. She had had Legionella pneumonia about 5 months prior to admission was travel to [place] to visit her grandchildren. After that she became very weak and had increased generalized pain which have been worsening. She has been seen multiple times in the ED for this pain. She followed up with pain management was due to have a pain block the week of admission. She was unable to carry out her activities of daily living because of the general rise pain. Labs showed ESR of 60 and CRP of 55. Mild leukocytosis of around 13. And was mainly concentrated in her shoulders and her hips N she denied any back pain. A diagnosis of intractable pain due to autoimmune disease possibly polymyalgia rheumatica was made. Patient was started on p.o. prednisone 20 mg daily. DEANNE and rheumatologic panel was also ordered. Patient Improved significantly just on the steroids. Pain management was consulted and she had a pain block on 08/04/2018. Patient's condition improved significantly and she is able to ambulate with physical therapy. She did not want to go to an inpatient rehab facility and preferred to go home with home physical therapy. She was discharged on 08/06/2018. She was given a prescription for p.o. prednisone 20 mg daily for 14 days and she is to follow-up with rheumatology and her primary care doctor before then so that prescription can be renewed for her. She is to follow-up with her primary care doctor in 1 week. Patient was also referred to rheumatology for follow-up. Patient seen and examined prior to discharge. She felt very well had no complaints. Pain had improved significantly. She denied any fever or chills, cough or chest pain, shortness of breath, abdominal pain, any diarrhea vomiting. Review of systems otherwise negative. Labs and vitals reviewed. Home medications reviewed and reconciled. [] Objective: Vital Signs Height 5 ft 4 in Weight: 169 lb 12.095 oz Weight in Pounds 169.8 lbs Pulse Ox 98 Temperature 97.8 F Pulse Rate 77 Respiratory Rate 18 Blood Pressure 141/71 Blood Pressure Position Semi-Fowlers - Physical Exam General: Alert, Oriented x3, Cooperative HEENT: Atraumatic, PERRLA, EOMI, Normocephalic Oral: Moist Mucosa Neck: Supple, No JVD, Negative Carotid Bruits Lungs: Clear to auscultation, Normal air movement, No rhonchi, No wheeze, No rales Cardiovascular: Regular rate, Regular Rhythm, Normal S1, Normal S2, No murmurs Abdomen: Bowel Sounds Present, Soft, Non Tender, Non-Distended, No Hepato-splenomegaly Extremities: No clubbing, No cyanosis, No edema, Capillary Refill Less than 3 Seconds Skin: No rashes, No breakdown, Ulcer/ Wound Musculoskeletal: No Tenderness to Palpation of Joints or Extremities Lymphatic: No Cervical, Supraclavicular, or Inguinal Adenopathy Neurological: Cranial nerves II-XII grossly intact, Neuro grossly intact, Motor Exam 5/5 strength throughout Psych/Mental Status: Normal Affect, Appropriate, Alert and oriented to time, place, person, mood and affect Vital Signs Temp Pulse Resp BP Pulse Ox 97.8 F 77 18 141/71 H 98 08/06/18 08:31 08/06/18 08:38 08/06/18 08:31 08/06/18 08:31 08/06/18 08:31 Oxygen Delivery Method Room Air Weight: 169 lb 12.095 oz Body Mass Index (BMI) 29.1 Intake and Output for Last 24 Hours 08/04/18 08/05/18 08/06/18 23:59 23:59 23:59 Intake Total 687 / 687 1486 / 1486 1320 / 1320 Output Total 200 / 200 1100 / 1100 1000 / 1000 Balance 487 / 487 386 / 386 320 / 320 Laboratory Tests Past 24 Hrs 08/06/18 08/06/18 05:06 05:06 WBC 13.4 H RBC 3.56 L Hgb 9.8 L Hct 30.5 L MCV 85.7 MCH 27.5 MCHC 32.1 RDW 14.4 RDW Differential 45.1 H Plt Count 466 H MPV 10.2 Immature Gran % (Auto) 0.800 Neut % (Auto) 80.9 H Lymph % (Auto) 13.8 L [place] % (Auto) 4.4 Eos % (Auto) 0.0 Baso % (Auto) 0.1 Absolute Neuts (auto) 10.8 H Absolute Lymphs (auto) 1.85 Total Counted Not Reportable Sodium 137 Potassium 4.0 Chloride 102 Carbon Dioxide 26.0 Anion Gap 9 BUN 29 H Creatinine 0.85 Estim Creat Clear Calc 45.58 Est GFR (MDRD) Af Amer 83 Est GFR (MDRD) Non-Af 68 BUN/Creatinine Ratio 34.1 H Glucose 284 H Calcium 8.9 POC Glucose 08/06/18 08/05/18 08/05/18 06:41 21:22 16:36 POC Glucose 285 H 312 H 360 H 08/05/18 08/05/18 14:35 13:14 POC Glucose 272 H 214 H Discharge Diet: Low fat/ Low Cholesterol Discharge Activity: Return to Normal Activity Weight Bearing Status: Weight bearing as tolerated Call your doctor if you observe: Fever of 101 or Higher, Uncontrolled pain Home Medications: Medications to take at Discharge Levothyroxine [Synthroid] 137 mcg PO DAILY 10/13/13 Potassium Chloride [Klor-Con 10] 20 meq PO BID 10/13/13 Nitroglycerin [Nitrostat] 0.4 mg SUBLINGUAL Q5M PRN 12/21/13 ergocalciferol (vitamin D2) 50,000 unit capsule 50,000 unit PO QMONTH 11/18/17 atorvastatin 20 mg tablet 40 mg PO QHS tab 11/24/17 Amlodipine [Norvasc] 5 mg PO DAILY 03/31/18 Glipizide/Metformin HCl [Glipizide-Metformin 2.5-500 mg] 2 ea PO BID 03/31/18 Valsartan/Hydrochlorothiazide [Valsartan-Hctz 320-25 mg Tab] 320 mg PO DAILY 03/31/18 insulin glargine (U-300) conc. 300 unit/mL (3 mL) subcutaneous pen 27 unit SC QDAY ml 04/08/18 Metoprolol(XL)Succ [Toprol Xl (Beta Antwon)] 50 mg PO DAILY 04/22/18 Aspirin [Aspirin, Baby] 81 mg PO DAILY@0800 07/30/18 Isosorbide Mononitrate [Isosorbide Mononitrate ER] 30 mg PO QAM 08/04/18 Pantoprazole Sodium 20 mg PO DAILY #30 08/06/18 Prednisone 20 mg PO DAILY #14 tablet 08/06/18 Following Prescrptions Were Given to Patient: Pantoprazole Sodium 20 mg PO DAILY #30 tablet. Prednisone 20 mg PO DAILY #14 tablet Primary Care Physician: Brian Degroot Chi, MD [Primary Care Provider] - Please follow up with your Primary Care Physician in: one week Please Follow Up With: Nori Saba MD When: 1-2 weeks; please call office for appointment Patient Instructions: Erythrocyte Sedimentation Rate Disposition: Home with Home Health Minutes spent on discharge:: 37 Patient Condition:: Stable Medical Necessity - Tobacco Use Smoking Status: Former smoker Meaningful Use Info Meaningful Use Diagnoses (Choose all that apply): None applicable Code Visit Inpatient E&M: 64663 Disch Hosp
[2018-08-06 11:40] LABS: Bedside Glucose 292 mg/dL (70-110)
[2018-08-06 12:11] LABS: ANTINUCLEAR ANTIBODIES DIRECT Negative (Negative)
--- NOTE | 2018-08-06 12:12 | CASEMGMT ---
MARAH CM Note: DC PLAN is to return home on dc. Ambulating well in halls.Call to Carol @ [facility] to notify. Vanessa CRYSTAL BSN CM
== END 2018-08-06 11:59 | disposition home health service (06) ==
LOC: ED 05:08 → MS2 07:35
PROVIDERS: Anesthesiology; Anesthesiology Pain Medicine; Admitting Provider Student in an Organized Health Care Education/Training Program; Emergency Provider Emergency Medicine; Family Provider Family Medicine Geriatric Medicine; PCP Family Medicine Geriatric Medicine; Visit Provider Student in an Organized Health Care Education/Training Program
PROC: 3E0S3BZ Introduction of Anesthetic Agent into Epidural Space, Percutaneous Approach (ICD-10-PCS; CPT 64484; principal; 2018-08-05 07:15)
DX: G89.29 Other chronic pain (principal); I25.2 Old myocardial infarction; I25.810 Atherosclerosis of coronary artery bypass graft(s) without angina pectoris; E78.5 Hyperlipidemia, unspecified; I10 Essential (primary) hypertension; Z87.891 Personal history of nicotine dependence; R53.1 Weakness; Z79.899 Other long term (current) drug therapy; Z79.82 Long term (current) use of aspirin; E11.9 Type 2 diabetes mellitus without complications; Z79.4 Long term (current) use of insulin; E87.1 Hypo-osmolality and hyponatremia; E03.9 Hypothyroidism, unspecified; D72.829 Elevated white blood cell count, unspecified; M19.011 Primary osteoarthritis, right shoulder; M48.02 Spinal stenosis, cervical region; M50.30 Other cervical disc degeneration, unspecified cervical region; M47.892 Other spondylosis, cervical region; M54.5 Low back pain; M54.16 Radiculopathy, lumbar region
CPT/HCPCS: 64484; 36415; 64483; 72040; 72100; 73030; 74018; 80048; 80053; 81001; 82550; 82947; 82962; 83036; 84443; 85025; 85610; 85652; 86038; 86140; 86225; 86235; 96361; 96372; 96374; 96375; 96376; 97162; 97165; 97530; 99218; 99284; J7030; P9612; A4216; G0378; G8978; G8979; G8987; G8988; J2405

== ENCOUNTER → 2018-08-13 10:14 | Outpatient (CLI) | payer MEDICARE, SELFPAY ==
[2018-08-13 12:30] LABS: Hematocrit 35.9 % (37-47); Hemoglobin 11.4 g/dl (12.0-15.0); Mean Corp Hgb Conc 31.8 g/gl (32-36); Mean Corpuscular Hgb 27.6 pg (27.0-32.0); Mean Corpuscular Volume 86.9 fL (81-99); Platelet Count 439 K/mm3 (150-450); RBC Distribution Width CV 15.1 % (11.6-14.6); RBC Distribution Width SD 46.9 fl (35.1-43.9); Red Blood Count 4.13 M/mm3 (4.2-5.4); White Blood Count 21.8 K/mm3 (4.4-11.0)
[2018-08-13 12:34] LABS: Differential Indicated MANUAL DIFF; POSITIVE COUNT YES; POSITIVE DIFFERENTIAL YES; POSITIVE MORPHOLOGY YES
[2018-08-13 12:36] LABS: Vitamin D,25 Hydroxy 34.4 ng/mL (29.95-100.01)
[2018-08-13 12:44] LABS: ALB/GLOB Ratio 0.9 RATIO (0.9-2.4); AST(SGOT) 15 U/L (15-37); Alanine Aminotransfer ALT/SGPT 38 U/L (13-56); Albumin, Serum 3.5 g/dL (3.2-5.0); Alkaline Phosphatase 62 U/L (45-117); Anion Gap 12 (5-15); BUN 31 mg/dL (7-18); BUN/Creat Ratio 26.1 RATIO (10-20); Calcium,Total 9.2 mg/dL (8.5-10.1); Chloride 99 mmol/L (98-107); Creatinine, Serum 1.19 mg/dL (0.55-1.02); EST Glomerular Filtration Rate 46 mL/min (>60); Est Glom Filt Rate - Afr Amer 56 mL/min (>60); Globulin 3.7 g/dL (2.2-4.2); Glucose 175 mg/dL (74-106); Potassium 3.6 mmol/L (3.5-5.1); Protein, Total 7.2 g/dL (6.4-8.2); Sodium Level 137 mmol/L (136-145); Thyroid Stim Hormone (TSH) 2.01 uIU/mL (0.358-3.74)
[2018-08-13 12:51] LABS: Lymphocyte 40 % (19-41); Metamyelocyte 1 % (0-1); Neutrophil-Segmented 59 % (47-70); Total Cells Counted 100 (MANUAL DIFF)
[2018-08-13 12:52] LABS: Platelet Estimate ADEQUATE (ADEQ); Red Cell Morphology NORM C+C NORMAL (NORM C&C)
== END ==
PROVIDERS: Family Provider Family Medicine Geriatric Medicine; PCP Family Medicine Geriatric Medicine; Visit Provider Family Medicine Geriatric Medicine
DX: E11.9 Type 2 diabetes mellitus without complications (principal); E55.9 Vitamin D deficiency, unspecified; I10 Essential (primary) hypertension
CPT/HCPCS: 36415; 80053; 82306; 84443; 85025

== ENCOUNTER → 2018-08-14 15:51 | Outpatient (CLI) | payer MEDICARE, SELFPAY ==
--- NOTE | 2018-08-14 15:55 | RAD_ITS ---
STUDY: X-RAY - RIGHT HIP REASON FOR EXAM: Female, 82 years old. Right hip pain. TECHNIQUE: 3 views of the hip. COMPARISON: Report of pelvic images dated January 16, 2011. No comparison images available. FINDINGS: There is generalized osteopenia. Normal femoral head, neck, intertrochanteric region and visualized proximal femur. Normal acetabulum. There is mild arthrosis of both hips. There is arthrosis of both sacroiliac joints, right greater than left, and of the symphysis pubis. Normal visualized superior and inferior pubic rami and ischial tuberosities. 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 Electronically Signed: Neftaly Wyman MD at 16:59 EST , Service support ,
== END ==
PROVIDERS: Family Provider Family Medicine Geriatric Medicine; PCP Family Medicine Geriatric Medicine; Referring Provider Anesthesiology Pain Medicine; Visit Provider Anesthesiology Pain Medicine
DX: M85.88 Other specified disorders of bone density and structure, other site (principal); M16.0 Bilateral primary osteoarthritis of hip
CPT/HCPCS: 73502

== ENCOUNTER 2018-08-28 13:30 | Outpatient (RCR) | payer MEDICARE, SELFPAY ==
--- NOTE | 2018-08-19 15:22 | HP.PTEVAL ---
Patient's Visit Information ENDER ALVES is a 82 year old F referred to Physical Therapy by Priyanka Mccartney with a diagnosis of BACK PAIN,NECK PAIN ,SHOULDER PAIN. Date of Evaluation: 08/19/18 Physical Therapist: Wilfredo Chavez PT, - Visit Plan Frequency: 2x /Week Duration: 4 Weeks Plan: CERVICAL POSTURAL EX'S,DLS ABD/BACK,POSTURAL EX'S ,UE/LE STRENGTHENING MODALITIES PRE'S - Subjective Subjective: This 82 y/o female presents to physical therapy with back ,neck pain and shoulder pain. This patient has had intermittant pain in back. Symptoms occur with no etiology or mechanism of injury. Pain located in intermittant right leg shoulder. Symptoms better with nothing. Patient has had pain medication.Pain can interfere with sleeping. Denies parathesia/tingling. Patient c/o intermittant edema in legs. Patient has had no trauma. No prior treatment. Patient had epidural injection.Bowel/bladder good. Denies tinnitus/dizziness/CORRALES. Patient had multiple diagnostics in hospital. Patient pain affects QOL and ADL'S. VOCATION: retired. SOCIAL: - Objective POSTURE: mild foward. PALPATION: UT /levator scapular tender ,paraspinals. GAIT: normal shandra reciprocal pattern. NEURO: denies parathesia/tingling ,reflexes 2/3 C5-6-7,L3-4,L4-5,L5-S1 2/3. AROM: BUE WFL. CERVICAL ROM: flexion min loss,extension/lateral flexion mod loss,. LUMBAR ROM: flexion min loss,extension mod loss ,side glides min loss. MMT: quads/hams 4/5,hip flexion 4-/5,ankle 4/5. BUE grossly 4/5,shoulder 4-/5. SYMMTRIES: align - Special Tests C/S Radiculapathy - Left Upper limb tension test: Negative C/S Radiculapathy - Right Upper limb tension test: Negative C/S Radiculapathy - Left Spurlings: Negative C/S Radiculapathy - Right Spurlings: Negative Sharp Cyndi: Negative Vertebral Artery Test: Negative Alar Ligament Test: Negative L/S Slump test left side: Negative L/S Slump test right side: Negative L/S Left Straight Leg Raise: Negative L/S Right Straight Leg Raise: Negative - Goals Goal 1:: Independant with HEP Goal Time Frame: 2-4 Weeks Goal 2:: Patient to improve posture for ADL'S Goal Time Frame: 2-4 Weeks Goal 3:: Patient to decrease pain for function with min episodes of pain 75% to improve function. Goal Time Frame: 2-4 Weeks Goal 4:: Patient improve ablity to perform ADL'S and housework tasks with min limiations Goal Time Frame: 2-4 Weeks Goal 5:: Patient to improve MONICA back disablity score by 5points to improve QOL. Goal Time Frame: 2-4 Weeks - Rehabilitation Potential Physical Therapy Diagnosis: This patient has multiple pain in leg shoulder, back which has been intermttant . Patient pain is better but increases without etiology bor reason. Patient has experienced generalized weakness with pain as well as comorbities infleuences patient condition. Rehabilitation Potential: Good - Anticipated Interventions Patient/Client Instruction: Educate patient on: Condition, Plan of Care For the Purpose of:: To decrease pain, To increase ROM, To improve muscle performance and motor function, To improve ability to perform ADL's, To increase tolerance to activity/condition/position, To improve ability of physical actions for home/community/work/leisure, To improve health of tissue, To decrease soft tissue restriction, To improve ability to perform tasks related to life management Therapeutic Exercise to Include: Strength training, Body mechanics, Postural training, Flexibilty training, Dynamic Lumbar Stabilization For the Purpose of:: To decrease pain, To increase ROM, To improve muscle performance and motor function, To increase tolerance to activity/condition/position, To improve ability of physical actions for home/community/work/leisure, To improve health of tissue, To decrease soft tissue restriction, To increase flexibility/ROM, To improve ability to perform tasks related to life management TENS: Yes IF ES: Yes Thermo therapy (hot pack): Yes Ultrasound (thermal/non thermal): Yes For the Purpose of:: To decrease pain, To increase ROM, To improve health of tissue, To decrease soft tissue restriction Thank you for the opportunity to evaluate your patient. For Medicare and Medicare HMO plans, please review the plan of care and approve it. It will need to be FAXED BACK to us at [phone] for Medicare purposes. Please let me know if there are questions or concerns regarding this plan of care. Physician Signature: Date:
--- NOTE | 2018-10-21 14:10 | HP.PTDCSUM ---
HP - PT D/C Summary It has been my pleasure to treat ENDER ALVES under orders from Priyanka Mccartney MD, for the diagnosis of BACK PAIN,NECK PAIN ,SHOULDER PAIN for a total of 3 visit(s). Discharge Date: 08/28/18 Please see the following information for a summary of their discharge status. - Subjective Subjective: i think i over did it yesterday hanging [place] lights. Both shoudlers are bothering me. Pt reports she may not come back after today due to the cost and her being able to do hep alone. - Pain bilat shoudlers Pain Intensity (Out of 10): 4 - Overall Improvement % Improvement: 50 - Objective Objective/Function: PT LUIGI TX WELL . INDEPENDANT WITH HEP - Goals Goal 1:: Independant with HEP Goal Progress: Goal Met Goal 2:: Patient to improve posture for ADL'S Goal Progress: Progressing Goal 3:: Patient to decrease pain for function with min episodes of pain 75% to improve function. Goal Progress: Progressing Goal 4:: Patient improve ablity to perform ADL'S and housework tasks with min limiations Goal Progress: Progressing Goal 5:: Patient to improve MONICA back disablity score by 5points to improve QOL. Goal Progress: Progressing - Plan Plan: PT WILL BE D/C AT THIS TIME- DUE TO CO-PAYS AND FEELING LIKE SHE CAN DO EX'S AT HOME. - D/C Information Discharge Comments: HEP If there are questions or concerns regarding this patient's physical therapy, please feel free to call me at [phone]. Thank you for the referral of this patient. Sincerely, Wilfredo Chavez, PT, Cert MDT, OCS
== END 2018-08-28 19:00 | disposition home or self-care (01) ==
LOC: PT 13:30
PROVIDERS: Family Provider Family Medicine Geriatric Medicine; PCP Family Medicine Geriatric Medicine; Referring Provider Anesthesiology Pain Medicine; Visit Provider Anesthesiology Pain Medicine
DX: M54.9 Dorsalgia, unspecified (principal); M54.2 Cervicalgia; M25.519 Pain in unspecified shoulder
CPT/HCPCS: 97110; 97162

== ENCOUNTER → 2018-09-02 10:15 | Outpatient (CLI) | payer MEDICARE, SELFPAY ==
--- NOTE | 2018-09-02 10:27 | RAD_ITS ---
STUDY: X-RAY - RIGHT HAND REASON FOR EXAM: Female, 82 years old. Swelling. No known injury. TECHNIQUE: 3 view(s) of the hand. COMPARISON: None. FINDINGS: Normal radiocarpal articulation. Normal distal radioulnar joint. Normal visualized carpal bones. Normal carpal articulations Normal carpometacarpal articulation of the thumb. Normal second through fifth carpometacarpal joints. Normal metacarpi. Normal metacarpophalangeal joint of the thumb. Normal interphalangeal joint of the thumb. Normal proximal and distal phalanges of the thumb. Normal metacarpophalangeal joints of the second through fifth fingers. There is diffuse articular joint space narrowing of the proximal and distal interphalangeal joints of the second through fifth fingers, but without erosive changes or periarticular soft tissue swelling. Normal phalanges of the second through fifth fingers. Diffuse soft tissue swelling. 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 Diffuse soft tissue swelling. Electronically Signed: Farzad Banks MD at 11:03 EST Tel [phone], Service support ,
[2018-09-02 12:39] LABS: Anion Gap 9 (5-15); BUN 19 mg/dL (7-18); BUN/Creat Ratio 18.6 RATIO (10-20); Calcium,Total 9.2 mg/dL (8.5-10.1); Chloride 103 mmol/L (98-107); Creatinine, Serum 1.02 mg/dL (0.55-1.02); EST Glomerular Filtration Rate 55 mL/min (>60); Est Glom Filt Rate - Afr Amer 67 mL/min (>60); Glucose 201 mg/dL (74-106); Potassium 3.3 mmol/L (3.5-5.1); Sodium Level 138 mmol/L (136-145); Uric Acid 4.6 mg/dL (2.6-6.0)
[2018-09-02 12:42] LABS: Absolute Lymphocyte Count 2.42 X10^3/ul (0.83-4.51); Absolute Neutrophil Count 5.1 X10^3/uL (2.0-7.7); Basophil# 0.02 X10^3/uL; Basophil% 0.2 % (0-1); Eosinophil# 0.09 X10^3/uL; Eosinophils% 1.1 % (0-5); Hematocrit 29.7 % (37-47); Hemoglobin 9.6 g/dl (12.0-15.0); Lymphocyte # 2.42 X10^3/ul (4.0); Lymphocyte % 28.7 % (19-41); Mean Corp Hgb Conc 32.3 g/gl (32-36); Mean Corpuscular Hgb 27.4 pg (27.0-32.0); Mean Corpuscular Volume 84.9 fL (81-99); Mean Platelet Vol. 9.5 fl (6.2-12.0); Monocyte# 0.81 X10^3/uL; Monocyte% 9.6 % (0-10); Neutrophil # 5.05 X10^3/uL (2.7-7.7); Platelet Count 373 K/mm3 (150-450); RBC Distribution Width CV 15.5 % (11.6-14.6); RBC Distribution Width SD 48.8 fl (35.1-43.9); White Blood Count 8.4 K/mm3 (4.4-11.0)
[2018-09-02 12:43] LABS: Erythrocyte Sedimentation Rate 102 mm/hr (0-30); POSITIVE COUNT NO; POSITIVE DIFFERENTIAL NO; POSITIVE MORPHOLOGY NO
[2018-09-02 13:13] LABS: PTHIN 20.9 pg/mL (18.4-80.1)
== END ==
LOC: POLAB3 10:15 → RAD 10:25
PROVIDERS: Internal Medicine Nephrology; Family Provider Family Medicine Geriatric Medicine; PCP Family Medicine Geriatric Medicine; Referring Provider Family Medicine Geriatric Medicine; Visit Provider Family Medicine Geriatric Medicine
DX: M10.9 Gout, unspecified (principal); M79.609 Pain in unspecified limb; N18.3 Chronic kidney disease, stage 3 (moderate)
CPT/HCPCS: 36415; 73130; 80048; 83970; 84550; 85025; 85652; 86140

== ENCOUNTER → 2018-09-08 17:39 | Outpatient (CLI) | payer MEDICARE, SELFPAY ==
[2018-08-05 10:51] VITALS: BMI 29.1
[2018-09-08 18:42] LABS: Erythrocyte Sedimentation Rate 15 mm/hr (0-30)
[2018-09-08 18:47] LABS: Hematocrit 33.2 % (37-47); Hemoglobin 10.5 g/dl (12.0-15.0); Mean Corp Hgb Conc 31.6 g/gl (32-36); Mean Corpuscular Hgb 27.3 pg (27.0-32.0); Mean Corpuscular Volume 86.5 fL (81-99); Mean Platelet Vol. 9.6 fl (6.2-12.0); Platelet Count 583 K/mm3 (150-450); RBC Distribution Width CV 15.7 % (11.6-14.6); RBC Distribution Width SD 49.6 fl (35.1-43.9); Red Blood Count 3.84 M/mm3 (4.2-5.4); White Blood Count 15.1 K/mm3 (4.4-11.0)
[2018-09-08 18:48] LABS: Differential Indicated MANUAL DIFF; POSITIVE COUNT YES; POSITIVE DIFFERENTIAL NO; POSITIVE MORPHOLOGY YES
[2018-09-08 18:58] LABS: Anion Gap 9 (5-15); BUN 23 mg/dL (7-18); BUN/Creat Ratio 24.2 RATIO (10-20); CRP < 2.90 mg/L (0.0-3.0); Calcium,Total 9.5 mg/dL (8.5-10.1); Chloride 104 mmol/L (98-107); Creatinine, Serum 0.95 mg/dL (0.55-1.02); EST Glomerular Filtration Rate 60 mL/min (>60); Est Glom Filt Rate - Afr Amer 72 mL/min (>60); Glucose 147 mg/dL (74-106); Potassium 3.5 mmol/L (3.5-5.1); Sodium Level 140 mmol/L (136-145)
[2018-09-08 19:33] LABS: Eosinophil 3 % (0-5); Lymphocyte 17 % (19-41); Monocyte 7 % (0-10); Myelocyte 1 (0-0); Neutrophil-Segmented 72 % (47-70); Total Cells Counted 100 (MANUAL DIFF)
[2018-09-09 14:40] LABS: Pathologist Review Reviewed
--- OUTSIDE RECORDS SUMMARY | 2018-10-25 23:56 | XMS RPT_ITS ---
:1935 Author Organization OHIP Support Name Relationship Address Phone LORNA ALVES(POA) Unavailable [address] + [place] [address] PRO[place]ASK[place], KURT (POA) Unavailable . + [place] [address] R Unavailable Unavailable Unavailable LIVELY LORNA(POA) Unavailable [address] + [place] [address] [place], KURT (POA) Unavailable Unavailable + [place] [address] R Unavailable Unavailable Unavailable LIVELY, LORNA(POA) Unavailable [address] + [place] [address] [place], KURT (POA) Unavailable Unavailable + [place] [address] R Unavailable Unavailable Unavailable LIVELY, LORNA(POA) Unavailable [address] + [place] [address] [place], KURT (POA) Unavailable Unavailable + [place] [address] R Unavailable Unavailable Unavailable LIVELY, LORNA(POA) Unavailable [address] + [place] [address] [place], KURT (POA) Unavailable Unavailable + [place] [address] R Unavailable Unavailable Unavailable LIVELY, LORNA(POA) Unavailable [address] + [place] [address] [place], KURT (POA) Unavailable Unavailable + [place] [address] R Unavailable Unavailable Unavailable LIVELY, LORNA(POA) Unavailable [address] + [place] [address] [place], KURT (POA) Unavailable Unavailable + [place] [address] R Unavailable Unavailable Unavailable LIVELY, LORNA(POA) Unavailable [address] + [place] [address] [place], KURT (POA) Unavailable Unavailable + [place] [address] R Unavailable Unavailable Unavailable LIVELY, LORNA(POA) Unavailable [address] + [place] [address] [place], [place]T (POA) Unavailable Unavailable + [place] [address] R Unavailable Unavailable Unavailable LIVELY, LORNA(POA) Unavailable [address] + [place] [address] [place], K[place]T (POA) Unavailable Unavailable + [place] [address] R Unavailable Unavailable Unavailable LIVELY, LORNA(POA) Unavailable [address] + [place] [address] [place], KURT (POA) Unavailable Unavailable + [place] [address] R Unavailable Unavailable Unavailable LIVELY, LORNA(POA) Unavailable [address] + [place] [address] [place], KURT (POA) Unavailable Unavailable + [place] [address] R Unavailable Unavailable Unavailable LIVELY, LORNA(POA) Unavailable [address] + [place] [address] [place], KURT (POA) Unavailable Unavailable + [place] [address] R Unavailable Unavailable Unavailable LIVELY, LORNA(POA) Unavailable [address] + [place] [address] [place], KURT (POA) Unavailable . + [place] [address] R Unavailable Unavailable Unavailable LIVELY, LORNA(POA) Unavailable [address] + [place] [address] [place], KURT (POA) Unavailable . + [place] [address] R Unavailable Unavailable Unavailable LIVELY, LORNA(POA) Unavailable [address] + [place] [address] [place], KURT (POA) Unavailable Unavailable + [place] [address] R Unavailable Unavailable Unavailable LIVELY, LORNA(POA) Unavailable [address] + [place] [address] [place], KURT (POA) Unavailable Unavailable + [place] [address] R Unavailable Unavailable Unavailable LIVELY, LORNA(POA) Unavailable [address] + [place] [address] [place], KURT (POA) Unavailable Unavailable + [place] [address] R Unavailable Unavailable Unavailable LIVELY, LORNA(POA) Unavailable [address] + [place] [address] [place], KURT (POA) Unavailable Unavailable + [place] [address] R Unavailable Unavailable Unavailable LIVELY, LORNA(POA) Unavailable [address] + [place] [address] [place], KURT (POA) Unavailable . + [place] [address] R Unavailable Unavailable Unavailable LIVELY, LORNA(POA) Unavailable [address] + [place] [address] [place], KURT (POA) Unavailable . + [place] [address] R Unavailable Unavailable Unavailable LIVELY, LORNA(POA) Unavailable [address] + [place] [address] [place], KURT (POA) Unavailable . + [place] [address] R Unavailable Unavailable Unavailable LIVELY, LORNA(POA) Unavailable [address] + [place] [address] [place], KURT (POA) Unavailable . + [place] [address] R Unavailable Unavailable Unavailable LIVELY, LORNA(POA) Unavailable [address] + [place] [address] [place], KURT (POA) Unavailable Unavailable + [place] [address] R Unavailable Unavailable Unavailable LIVELY, LORNA(POA) Unavailable [address] + [place] [address] [place], KURT (POA) Unavailable Unavailable + [place] [address] R Unavailable Unavailable Unavailable LIVELY, LORNA(POA) Unavailable [address] + [place] [address] [place], KURT (POA) Unavailable 0 + [place] [address] R Unavailable Unavailable Unavailable LIVELY, LORNA(POA) Unavailable [address] + [place] [address] [place], KURT (POA) Unavailable Unavailable + [place] [address] R Unavailable Unavailable Unavailable LIVELY, LORNA(POA) Unavailable [address] + [place] [address] [place], KURT (POA) Unavailable Unavailable + [place] [address] R Unavailable Unavailable Unavailable LIVELY, LORNA(POA) Unavailable [address] + [place] [address] [place], KURT (POA) Unavailable 0 + [place] [address] R Unavailable Unavailable Unavailable LIVELY, LORNA(POA) Unavailable [address] + [place] [address] [place], KURT (POA) Unavailable 0 + [place] [address] R Unavailable Unavailable Unavailable LIVELY, LORNA(POA) Unavailable [address] + [place] [address] [place], KURT (POA) Unavailable Unavailable + R Unavailable Unavailable Unavailable LIVELY, LORNA Unavailable [address] + [place] [address] R Unavailable Unavailable Unavailable LIVELY, LORNA Unavailable [address] + [place] [address] R Unavailable Unavailable Unavailable LIVELY, LORNA Unavailable [address] + [place] [address] R Unavailable Unavailable Unavailable LIVELY, LORNA(POA) Unavailable [address] + [place] [address] [place], KURT (POA) Unavailable Unavailable + [place] [address] R Unavailable Unavailable Unavailable LIVELY, LORNA(POA) Unavailable [address] + [place] [address] [place], KURT (POA) Unavailable Unavailable + [place] [address] R Unavailable Unavailable Unavailable LIVELY, LORNA(POA) Unavailable [address] + [place] [address] [place], KURT (POA) Unavailable Unavailable + [place] [address] R Unavailable Unavailable Unavailable LIVELY, LORNA(POA) Unavailable [address] + [place] [address] [place], KURT (POA) Unavailable Unavailable + [place] [address] R Unavailable Unavailable Unavailable LIVELY, LORNA Unavailable [address] + [place] [address] R Unavailable Unavailable Unavailable LIVELY, LORNA Unavailable [address] + [place] [address] R Unavailable Unavailable Unavailable LIVELY, LORNA Unavailable [address] + [place] [address] R Unavailable Unavailable Unavailable LIVELY, LORNA Unavailable [address] + [place] [address] R Unavailable Unavailable Unavailable LIVELY, LORNA Unavailable [address] + [place] [address] R Unavailable Unavailable Unavailable LIVELY, LORNA Unavailable [address] + [place] [address] R Unavailable Unavailable Unavailable LIVELY, LORNA Unavailable [address] + [place] [address] R Unavailable Unavailable Unavailable LIVELY, LORNA Unavailable [address] + [place] [address] R Unavailable Unavailable Unavailable LIVELY, LORNA Unavailable [address] + [place] [address] R Unavailable Unavailable Unavailable R Unavailable Unavailable Unavailable ADELINE DAI Unavailable [address] [facility] [address] + [place] [address] R Unavailable Unavailable Unavailable WALLET, LORNA Unavailable [address] + [place] [address] ADELINE DAI Unavailable [address] [facility] [address] + [place] [address] R Unavailable Unavailable Unavailable WALLET, LORNA Unavailable [address] + [place] [address] Care Team Providers Name Role Phone Zane, Brian Chi Attending Unavailable Zane, Brian Chi Referring Unavailable Zane, Brian Chi Primary Care Unavailable Erendira Palacios Attending Unavailable Zane, Brian Chi Primary Care Unavailable Zane, Brian Chi Attending Unavailable Zane, Brian Chi Referring Unavailable Zane, Brian Chi Primary Care Unavailable Zane, Brian Chi Attending Unavailable Zane, Brian Chi Primary Care Unavailable Kel Romo Admitting Unavailable Zane, Brian Chi Primary Care Unavailable Kel Romo Consulting Unavailable Kel Romo Attending Unavailable Luz Maria Stratton Attending Unavailable Robert Bonilla Attending Unavailable Zane, Brian Chi Referring Unavailable Zane, Brian Chi Attending Unavailable Zane, Brian Chi Referring Unavailable Zane, Brian Chi Primary Care Unavailable Raymond Felder Attending Unavailable MiguelabrRaymond raya Referring Unavailable Zane, Brian Chi Primary Care Unavailable Raymond Felder Consulting Unavailable Zane, Brian Chi Attending Unavailable Zane, Brian Chi Primary Care Unavailable Zane, Brian Chi Attending Unavailable Zane, Brian Chi Primary Care Unavailable Zane, Brian Chi Referring Unavailable Zane, Brian Chi Attending Unavailable Zane, Brian Chi Primary Care Unavailable Zane, Brian Chi Primary Care Unavailable Koram, Gloria Kita Admitting Unavailable Koram, Gloria Kita Attending Unavailable Basali, Ayman Consulting Unavailable Koram, Gloria Kita Admitting Unavailable Koram, Gloria Kita Attending Unavailable Zane, Brian Chi Primary Care Unavailable Basali, Ayman Consulting Unavailable Koram, Gloria Kita Consulting Unavailable Zane, Brian Chi Attending Unavailable Zane, Brian Chi Primary Care Unavailable Zane, Brian Chi Referring Unavailable Raymond Felder Attending Unavailable Zane, Brian Chi Referring Unavailable Zane, Brian Chi Primary Care Unavailable Zane, Brian Chi Attending Unavailable Zane, Brian Chi Primary Care Unavailable Zane, Brian Chi Referring Unavailable Raymond Felder Attending Unavailable Raymond Felder Referring Unavailable Zane, Brian Chi Primary Care Unavailable Robert Bonilla Attending Unavailable Zane, Brian Chi Referring Unavailable Zane, Brian Chi Primary Care Unavailable Owen Cristina Attending Unavailable Zane, Brian Chi Attending Unavailable Zane, Brian Chi Primary Care Unavailable Jopperi, Kel Admitting Unavailable Zane, Brian Chi Primary Care Unavailable Catrachito Oden Consulting Unavailable Catrachito Oden Attending Unavailable Jopperi, Kel Admitting Unavailable Zane, Brian Chi Primary Care Unavailable Catrachito Oden Consulting Unavailable Catrachito Oden Attending Unavailable Zane, Brian Chi Primary Care Unavailable Jopperi, Kel Admitting Unavailable KitCatrachito rivera Attending Unavailable Anupam Erendira Attending Unavailable Anupam, Erendira Referring Unavailable Zane, Brian Chi Primary Care Unavailable Zane, Brian Chi Attending Unavailable Zane, Brian Chi Primary Care Unavailable Zane, Brian Chi Attending Unavailable Zane, Brian Chi Primary Care Unavailable Zane, Brian Chi Referring Unavailable Zane, Brian Chi Attending Unavailable Zane, Brian Chi Primary Care Unavailable Zane, Brian Chi Attending Unavailable Zane, Brian Chi Primary Care Unavailable Zane, Brian Chi Attending Unavailable Zane, Brian Chi Primary Care Unavailable Zane, Brian Chi Attending Unavailable Zane, Brian Chi Primary Care Unavailable Dianna Schaeffer Attending Unavailable Irene, Verbena Attending Unavailable Irene, Verbena Referring Unavailable Zane, Brian Chi Primary Care Unavailable Zane, Brian Chi Attending Unavailable Zane, Brian Chi Primary Care Unavailable Basali, Ayman Attending Unavailable Basali, Ayman Referring Unavailable Zane, Brian Chi Primary Care Unavailable Basali, Ayman Attending Unavailable Basali, Ayman Referring Unavailable Zane, Brian Chi Primary Care Unavailable Zane, Brian Chi Attending Unavailable Zane, Brian Chi Primary Care Unavailable Koram, Gloria Kita Admitting Unavailable Koram, Gloria Kita Attending Unavailable Zane, Brian Chi Primary Care Unavailable Basali, Ayman Consulting Unavailable Koram, Gloria Kita Consulting Unavailable Koram, Gloria Kita Admitting Unavailable Koram, Gloria Kita Attending Unavailable Zane, Brian Chi Primary Care Unavailable Basali, Ayman Consulting Unavailable Koram, Gloria Kita Consulting Unavailable Basali, Ayman Attending Unavailable Basali, Ayman Referring Unavailable Zane, Brian Chi Primary Care Unavailable Zane, Brian Chi Primary Care Unavailable Owen Cintron Attending Unavailable CalabrettaRaymond Attending Unavailable Zane, Brian Chi Referring Unavailable Zane, Brian Chi Attending Unavailable Zane, Brian Chi Referring Unavailable Zane, Brian Chi Primary Care Unavailable Zane, Brian Chi Attending Unavailable Zane, Brian Chi Primary Care Unavailable Raymond Felder Attending Unavailable CalabrettaRaymond Attending Unavailable CalabrettaRaymond Referring Unavailable Zane, Brian Chi Primary Care Unavailable Zane, Brian Chi Attending Unavailable Zane, Brian Chi Primary Care Unavailable Raymond Felder Attending Unavailable Zane, Brian Chi Referring Unavailable Zane, Brian Chi Primary Care Unavailable Carol Serrano Attending Unavailable Zane, Brian Chi Referring Unavailable Zane, Brian Chi Primary Care Unavailable PROBLEMS PROBLEMS DATE TYPE CONDITION / CODE ATTENDING STATUS SOURCE 09/18/2018 Unknown N18.3 - Chronic Zane, Brian Chi Active [facility] kidney disease, Community stage 3 (moderate) / Hospital N18.3(ICD-10) Repository 09/18/2018 Unknown N39.0 - Urinary Zane, Brian Chi Active [facility] tract infection, Community site not specified / Hospital N39.0(ICD-10) Repository 09/18/2018 Unknown R10.9 - Unspecified Zane, Brian Chi Active [facility] abdominal pain / Community R10.9(ICD-10) Hospital Repository 09/08/2018 Unknown M35.3 - Polymyalgia Zane, Brian Chi Active [facility] rheumatica / Community M35.3(ICD-10) Hospital Repository 09/08/2018 Unknown R06.9 - Unspecified Zane, Brian Chi Active [facility] abnormalities of Community breathing / Hospital R06.9(ICD-10) Repository 09/02/2018 Unknown M10.9 - Gout, Zane, Brian Chi Active [facility] unspecified / Community M10.9(ICD-10) Hospital Repository 09/02/2018 Unknown M79.609 - Pain in Zane, Brian Chi Active [facility] unspecified limb / Community M79.609(ICD-10) Hospital Repository 08/28/2018 Unknown M54.9 - Dorsalgia, Basali, Ayman Active [facility] unspecified / Community M54.9(ICD-10) Hospital Repository 08/28/2018 Unknown M54.2 - Cervicalgia Basali, Ayman Active [facility] / M54.2(ICD-10) Community Hospital Repository 08/28/2018 Unknown M25.519 - Pain in Basali, Ayman Active [facility] unspecified shoulder Community / M25.519(ICD-10) Hospital Repository 07/22/2018 Unknown M54.16 - Zane, Brian Chi Active [facility] Radiculopathy, Community lumbar region / Hospital M54.16(ICD-10) Repository 07/08/2018 Unknown 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[place], 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, Raymond Community unspecified / Hospital K22.9(ICD-10) Repository 06/12/2018 Unknown E78.4 - Other Zane, Brian Chi Active [facility] hyperlipidemia / Community E78.4(ICD-10) Hospital Repository 06/11/2018 Unknown I10 - Essential Zane, Brian Chi Active [facility] (primary) Community hypertension / Hospital I10(ICD-10) Repository 06/11/2018 Unknown R60.9 - Edema, Zane, Brian Chi Active [facility] unspecified / Community R60.9(ICD-10) Hospital Repository 05/28/2018 Unknown R53.83 - Other Zane, Brian Chi Active [facility] fatigue / Community R53.83(ICD-10) Hospital Repository 05/04/2018 Unknown R50.9 - Fever, Zane, Brian Chi Active [facility] unspecified / Community R50.9(ICD-10) Hospital Repository 04/24/2018 Unknown K20.9 - Esophagitis, Bradford, Active [facility] unspecified / Raymond Community K20.9(ICD-10) Hospital Repository 04/08/2018 Unknown 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, 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 / Hospital Z95.1(ICD-10) Repository 04/08/2018 Unknown Z95.5 - Presence of Irene, Verbena Active [facility] coronary angioplasty Community implant and graft / Hospital Z95.5(ICD-10) Repository 04/07/2018 Unknown D64.9 - Anemia, Zane, Brian Chi Active [facility] unspecified / Community D64.9(ICD-10) Hospital Repository 07/08/2018 Unknown A41.9 - Sepsis, Kittojordi Catrachito Active [facility] unspecified organism Community / A41.9(ICD-10) Hospital Repository 03/26/2018 Unknown M25.50 - Pain in Zane, Brian Chi Active [facility] unspecified joint / Community M25.50(ICD-10) Hospital Repository 01/01/2018 Unknown R06.02 - Shortness Zane, Brian Chi Active [facility] of breath / Community R06.02(ICD-10) Hospital Repository 01/01/2018 Unknown J40 - Bronchitis, Zane, Brian Chi Active [facility] not specified as Community acute or chronic / Hospital J40(ICD-10) Repository 12/02/2017 Unknown L98.9 - Disorder of Zane, Brian Chi Active [facility] the skin and Community subcutaneous tissue, Hospital unspecified / Repository L98.9(ICD-10) 11/26/2017 Unknown N18.2 - Chronic Zane, Brian Chi Active [facility] kidney disease, Community stage 2 (mild) / Hospital N18.2(ICD-10) Repository 11/21/2017 Unknown E78.5 - Irene, Robert Active [facility] Hyperlipidemia, Community unspecified / Hospital E78.5(ICD-10) Repository 11/21/2017 Unknown Z79.899 - Other long Irene, Verbena Active [facility] term (current) drug Community therapy / Hospital Z79.899(ICD-10) Repository PROCEDURES PROCEDURES No Procedure Records FoundRESULTS RESULTS BASIC METABOLIC Collected: 10/08/2018 Status: F Source: [place] PROFILE (BMP) 2:55 PM [facility] REPOSITORY TYPE CODE TESTS RESULT OUT OF RANGE REFERENCE UNITS LAB L501.0100 74-106 mg/dL High GLU 222 Result Comment: Glucose result greater than or equal to 200 mg/dL suggests DIABETES MELLITUS per A.D.A. criteria. Please note revised GLUCOSE reference range effective 2017. LAB L501.1000 7-18 mg/dL High BUN 22 LAB L501.1100 0.55-1.02 mg/dL High CREAT,SERUM 1.18 Result Comment: The validity of the calculated GFR AND GFRAA in patients over 70 years has not been determined. Clinical correlation is essential. LAB L501.1110 >60 mL/min Low EST GFR 47 Result Comment: Non- GFR Calc LAB L501.1115 >60 mL/min Low EST GFR - AA 57 Result Comment: GFR Calc LAB L501.1300 10-20 RATIO Normal BUN/CRE 18.6 LAB L501.2200 8.5-10.1 mg/dL CA Normal 9.4 LAB L501.5300 136-145 mmol/L NA Normal 136 LAB L501.5600 3.5-5.1 mmol/L K Normal 3.6 LAB L501.5900 98-107 mmol/L Low CL 97 LAB L501.6100 21.0-32.0 mmol/L Normal CO2 28.0 LAB L501.6200 5-15 Normal GAP 11 Performed By: #### L500.2500, L501.1400, L501.6710 #### [facility] [address] [place], [place], [address] URIC ACID Collected: 10/08/2018 Status: F Source: [place] 2:55 PM [facility] REPOSITORY TYPE CODE TESTS RESULT OUT OF RANGE REFERENCE UNITS LAB L501.1400 2.6-6.0 mg/dL Normal URIC 4.9 Result Comment: The drugs N-Acetylcysteine and Metamizole may falsely depress this assay. Performed By: #### L500.2500, L501.1400, L501.6710 #### [facility] [address] [place], [place], [address] CRP Collected: 10/08/2018 Status: F Source: [place] 2:55 PM [facility] REPOSITORY TYPE CODE TESTS RESULT OUT OF RANGE REFERENCE UNITS LAB L501.6710 0.0-3.0 mg/L High 19.30 C-REACTIVE PROT Result Comment: C-Reactive Protein (CRP) provides useful information for the diagnosis, therapy and monitoring of inflammatory processes and associated diseases. For the evaluation of Relative Risk for Cardiovascular Disease, a High Sensitivity CRP (HSCRP) should be ordered. Performed By: #### L500.2500, L501.1400, L501.6710 #### [facility] [address] [place], [address] CBC W/DIFF, AUTOMATED Collected: 10/08/2018 Status: F Source: [place] 2:55 PM [facility] REPOSITORY TYPE CODE TESTS RESULT OUT OF RANGE REFERENCE UNITS LAB L100.1000 4.4-11.0 K/mm3 High WBC 16.7 LAB L100.1200 4.2-5.4 M/mm3 Low RBC 3.80 LAB L100.1300 12.0-15.0 g/dl Low HGB 10.4 LAB L100.1400 37-47 % Low HCT 33.3 LAB L100.1500 81-99 fL Normal MCV 87.6 LAB L100.1600 27.0-32.0 pg Normal MCH 27.4 LAB L100.1700 32-36 g/gl Low MCHC 31.2 LAB L100.1810 11.6-14.6 % High RDW CV 14.8 LAB L100.1820 35.1-43.9 fl High RDW SD 47.3 LAB L100.1900 150-450 K/mm3 High PLT 578 LAB L100.2000 6.2-12.0 fl Normal MPV 10.4 LAB L100.2100 47-70 % Normal NEUT% 62.7 LAB L100.2200 19-41 % Normal LY% 26.3 LAB L100.2300 0-10 % Normal MONO% 8.8 LAB L100.2400 0-5 % Normal EO% 0.7 LAB L100.2500 0-1 % Normal BASO% 0.5 LAB L100.2550 0.0-0.9 % High IM GRAN % 1.000 Result Comment: IG% - Immature Granulocytes (promyelocytes, myelocytes and metamyelocytes) > 1% indicates that a LEFT SHIFT is Present. LAB L100.2620 2.0-7.7 X10 3/uL High Absolute Neut 10.4 LAB L100.2720 0.83-4.51 X10 3/ul Normal Absolute Lymph 4.38 Performed By: #### L100.0100, L101.9900 #### [facility] [address] [place], [address] ERYTHROCYTE SED RATE Collected: 10/08/2018 Status: F Source: [place] 2:55 PM [facility] REPOSITORY TYPE CODE TESTS RESULT OUT OF RANGE REFERENCE UNITS LAB L102.0000 0-30 mm/hr High SED RATE 44 Performed By: #### L100.0100, L101.9900 #### [facility] [address] [facility] [place], [address] ABD INC DECUB Observed: 09/18/2018 Status: F Source: [place] AND/OR ERECT 10:43 AM [facility] REPOSITORY [facility] Imaging Services [address] [place] [address] Abd Inc Decub and/or Erect MR#: [id number] Acct: [id number] Name: ENDER ALVES Rep #: [id number] : 1935 F 82 From: Jovanny Palacios MD PCP: Zane CORONA,Brian Kowalski Status: REG CLI Study: Abd Inc Decub and/or Erect Date of Exam: 09/18/18 Exam# [id number] Ordering Dr: Brian Degroot MD STUDY: X-RAY - ABDOMEN/PELVIS REASON FOR EXAM: Female, 82 years old. Abdominal pain TECHNIQUE: 2 views COMPARISON: None. FINDINGS: Clips in the right upper quadrant indicate previous cholecystectomy. There are no abnormal calcifications in the kidneys. There are degenerative changes involving the lower thoracic spine. There is no bowel distention or free intraperitoneal air. RAD/Abd Inc Decub and/or Erect IMPRESSION: No acute findings in the abdomen. Electronically Signed: Jovanny Palacios MD at 4:23 EST Tel , Service support , CC: Brian Degroot MD Shift Boss: Signed Observed: 09/18/2018 Status: F Source: [place] CULTURE, URINE 9:54 AM [facility] REPOSITORY Urine Culture ORGANISM 1: Klebsiella pneumoniae sp pneum [place] Count >100,000 Klebsiella pneumoniae sp pneum: REACTION Amoxacillin/Clavulanic Acid $ <=2 S Ampicillin $ >=32 R Ampicillin/Sulbactam $ 4 S Cefazolin $ <=4 S Cefepime $ <=1 S Ceftriaxone $ <=1 S Ciprofloxacin $ <=0.25 S ESBL - Ertapenim $$$ <=0.5 S Gentamicin $ <=1 S Imipenem *NF <=0.25 S Levofloxacin $ <=0.12 S Nitrofurantoin $ 32 S Piperacillin/Tazobactam $$ <=4 S Tobramycin $ <=1 S Trimethoprim/Sulfametho $ <=20 S (NF) indicates non-formulary drug at [facility]. Approval by Infectious Disease Specialist required before non-formulary drugs may be ordered and/or dispensed. Performed By: #### M100.0650 #### [facility] [address] [place] [address]. [place], [address] BASIC METABOLIC Collected: 09/18/2018 Status: F Source: [place] PROFILE (BMP) 9:15 AM [facility] REPOSITORY TYPE CODE TESTS RESULT OUT OF RANGE REFERENCE UNITS LAB L501.0100 74-106 mg/dL High GLU 230 Result Comment: Glucose result greater than or equal to 200 mg/dL suggests DIABETES MELLITUS per A.D.A. criteria. Please note revised GLUCOSE reference range effective 2017. LAB L501.1000 7-18 mg/dL High BUN 27 LAB L501.1100 0.55-1.02 mg/dL High CREAT,SERUM 1.10 Result Comment: The validity of the calculated GFR AND GFRAA in patients over 70 years has not been determined. Clinical correlation is essential. LAB L501.1110 >60 mL/min Low EST GFR 51 Result Comment: Non- GFR Calc LAB L501.1115 >60 mL/min Normal EST GFR - AA 61 Result Comment: GFR Calc LAB L501.1300 10-20 RATIO High BUN/CRE 24.5 LAB L501.2200 8.5-10.1 mg/dL CA Normal 8.8 LAB L501.5300 136-145 mmol/L NA Normal 138 LAB L501.5600 3.5-5.1 mmol/L K Normal 3.5 LAB L501.5900 98-107 mmol/L CL Normal 102 LAB L501.6100 21.0-32.0 mmol/L Normal CO2 24.0 LAB L501.6200 5-15 Normal GAP 12 Performed By: #### L500.2500 #### [facility] [place], [address] CBC W/DIFF, AUTOMATED Collected: 09/18/2018 Status: F Source: [place] 9:15 AM [facility] REPOSITORY TYPE CODE TESTS RESULT OUT OF RANGE REFERENCE UNITS LAB L100.1000 4.4-11.0 K/mm3 High WBC 13.3 LAB L100.1200 4.2-5.4 M/mm3 Low RBC 3.88 LAB L100.1300 12.0-15.0 g/dl Low HGB 10.6 LAB L100.1400 37-47 % Low HCT 33.6 LAB L100.1500 81-99 fL Normal MCV 86.6 LAB L100.1600 27.0-32.0 pg Normal MCH 27.3 LAB L100.1700 32-36 g/gl Low MCHC 31.5 LAB L100.1810 11.6-14.6 % High RDW CV 15.8 LAB L100.1820 35.1-43.9 fl High RDW SD 50.5 LAB L100.1900 150-450 K/mm3 Normal PLT 403 LAB L100.2000 6.2-12.0 fl Normal MPV 10.9 LAB L100.2100 47-70 % High NEUT% 71.0 LAB L100.2200 19-41 % Normal LY% 19.8 LAB L100.2300 0-10 % Normal MONO% 8.1 LAB L100.2400 0-5 % Normal EO% 0.3 LAB L100.2500 0-1 % Normal BASO% 0.2 LAB L100.2550 0.0-0.9 % Normal IM GRAN % 0.600 Result Comment: IG% - Immature Granulocytes (promyelocytes, myelocytes and metamyelocytes) > 1% indicates that a LEFT SHIFT is Present. LAB L100.2620 2.0-7.7 X10 3/uL High Absolute Neut 9.4 LAB L100.2720 0.83-4.51 X10 3/ul Normal Absolute Lymph 2.63 LAB L100.4700 Normal REACTIVE LYMPH RARE Performed By: #### L100.0100 #### [facility] [address] [facility] [place], [place], [id number] Observed: 09/18/2018 Status: F Source: [place] ENTERIC PATHOGEN 9:15 AM [facility] PANEL STOOL REPOSITORY EP PANEL STOOL Not detected for Campylobacter group, Salmonella species, Shigella species, Vibrio Group, Yersinia enterocolitica, EHEC (Shiga Toxin 1, Shiga Toxin 2), Norovirus Gl/Gll, and Rotavirus A. Other common stool pathogens are not detected on this panel include: Aeromonas/Plesiomonas or parasites. Order testing for these organisms separately if suspected. This is an amplified DNA test which makes it both specific and sensitive. Normal Reference Range = Not Detected CAMPYLOBACTER Not Detected Salmonella Not Detected Shigella sp. Not Detected Shiga Toxin Not Detected Yersinia Not Detected VIBRIO Not Detected Norovirus Not Detected Rotavirus Not Detected Performed By: #### M100.637 #### [facility] [address] [place], [place], [id number] CBC-COMPLETE BLOOD CNT Collected: 09/15/2018 Status: F Source: [place] NO DIFF 1:47 PM [facility] REPOSITORY TYPE CODE TESTS RESULT OUT OF RANGE REFERENCE UNITS LAB L100.1000 4.4-11.0 K/mm3 High WBC 13.4 LAB L100.1200 4.2-5.4 M/mm3 Low RBC 3.65 LAB L100.1300 12.0-15.0 g/dl Low HGB 10.2 LAB L100.1400 37-47 % Low HCT 32.4 LAB L100.1500 81-99 fL Normal MCV 88.8 LAB L100.1600 27.0-32.0 pg Normal MCH 27.9 LAB L100.1700 32-36 g/gl Low MCHC 31.5 LAB L100.1810 11.6-14.6 % High RDW CV 15.7 LAB L100.1820 35.1-43.9 fl High RDW SD 50.1 LAB L100.1900 150-450 K/mm3 Normal PLT 365 LAB L100.2000 6.2-12.0 fl Normal MPV 11.4 Performed By: #### L100.0500 #### [facility] [address] [place], [address] VITAMIN B12 Collected: 09/15/2018 Status: F Source: [place] 1:47 PM [facility] REPOSITORY TYPE CODE TESTS RESULT OUT OF RANGE REFERENCE UNITS LAB L503.0105 211-911 pg/mL Normal Vitamin B12 404 Performed By: #### L503.0105 #### [facility] [address] [place], [address] IRON BINDING Collected: 09/15/2018 Status: F Source: [place] CAPACITY,TOTAL 1:47 PM [facility] REPOSITORY TYPE CODE TESTS RESULT OUT OF RANGE REFERENCE UNITS LAB L503.6075 250-450 ug/dL Normal TIBC 296 Performed By: #### L503.6075, L503.6150, L503.6550 #### [facility] [address] [place], [address] IRON Collected: 09/15/2018 Status: F Source: [place] 1:47 PM [facility] REPOSITORY TYPE CODE TESTS RESULT OUT OF RANGE REFERENCE UNITS LAB L503.6150 50-170 ug/dL Normal IRON 52 Performed By: #### L503.6075, L503.6150, L503.6550 #### [facility] [address] [place], [address] FERRITIN Collected: 09/15/2018 Status: F Source: [place] 1:47 PM [facility] REPOSITORY TYPE CODE TESTS RESULT OUT OF RANGE REFERENCE UNITS LAB L503.6550 8-252 ng/mL Normal FERRITIN 62 Performed By: #### L503.6075, L503.6150, L503.6550 #### [facility] [address] [place], [place], [address] FOLATES, RBC Collected: 09/15/2018 Status: F Source: [place] 1:47 PM [facility] REPOSITORY TYPE CODE TESTS RESULT OUT OF RANGE REFERENCE UNITS LAB L3100.1735 Not Estab. ng/mL Normal 417.6 FOL,HEMOLYSA TE LAB L3100.1740 34.0-46.6 % Low 31.8 FOLR,HEMATOC RIT LAB L3100.1745 >498 ng/mL Normal FOLATE, 1313 RBC Result Comment: Performed at: [facility] [id number] [employer] Delivery Specialist: Alejandro Wolff PhD, Phone: [phone] Performed By: #### L3100.1725 #### [facility] (refer to report for specific site) refer to report for address and phone number ERYTHROCYTE SED RATE Collected: 09/08/2018 Status: F Source: [place] 5:46 PM [facility] REPOSITORY TYPE CODE TESTS RESULT OUT OF RANGE REFERENCE UNITS LAB L102.0000 0-30 mm/hr Normal SED RATE 15 Performed By: #### L101.9900, L100.0100 #### [facility] [address] [facility] [place], [place], [id number] CBC W/DIFF, AUTOMATED Collected: 09/08/2018 Status: C Source: [place] 5:46 PM [facility] REPOSITORY TYPE CODE TESTS RESULT OUT OF RANGE REFERENCE UNITS LAB L100.1000 4.4-11.0 K/mm3 High WBC 15.1 LAB L100.1200 4.2-5.4 M/mm3 Low RBC 3.84 LAB L100.1300 12.0-15.0 g/dl Low HGB 10.5 LAB L100.1400 37-47 % Low HCT 33.2 LAB L100.1500 81-99 fL Normal MCV 86.5 LAB L100.1600 27.0-32.0 pg Normal MCH 27.3 LAB L100.1700 32-36 g/gl Low MCHC 31.6 LAB L100.1810 11.6-14.6 % High RDW CV 15.7 LAB L100.1820 35.1-43.9 fl High RDW SD 49.6 LAB L100.1900 150-450 K/mm3 High PLT 583 LAB L100.2000 6.2-12.0 fl Normal MPV 9.6 LAB L100.3100 MANUAL DIFF Normal CELLS COUNTED 100 LAB L100.3200 47-70 % High 72 SEGS LAB L100.3500 0-0 High 1 MYELO LAB L100.3800 19-41 % Low 17 LYMPH LAB L100.3900 0-10 % 7 Normal MONOCYTE LAB L100.4000 0-5 % 3 Normal EOS LAB L100.9900 Normal PATH REV Reviewed Result Comment: Neutrophilic leukocytosis with left shift. Normocytic anemia. Thrombocytosis. Clinical correlation necessary. Seth Dickens M.D. 09/09/18 AMENDED REPORT 09/09/18 1440 PATH REV previously reported as: January nolan Performed By: #### L101.9900, L100.0100 #### [facility] [address] [place], [place], [address] BASIC METABOLIC Collected: 09/08/2018 Status: F Source: [place] PROFILE ([facility]) 5:46 PM [facility] REPOSITORY TYPE CODE TESTS RESULT OUT OF RANGE REFERENCE UNITS LAB L501.0100 74-106 mg/dL High GLU 147 Result Comment: Fasting Glucose result greater than or equal to 126 mg/dL suggests DIABETES MELLITUS per A.D.A. criteria. Please note revised GLUCOSE reference range effective 2017. LAB L501.1000 7-18 mg/dL High BUN 23 LAB L501.1100 0.55-1.02 mg/dL Normal CREAT,SERUM 0.95 Result Comment: The validity of the calculated GFR AND GFRAA in patients over 70 years has not been determined. Clinical correlation is essential. LAB L501.1110 >60 mL/min Normal EST GFR 60 Result Comment: Non- GFR Calc LAB L501.1115 >60 mL/min Normal EST GFR - AA 72 Result Comment: GFR Calc LAB L501.1300 10-20 RATIO High BUN/CRE 24.2 LAB L501.2200 8.5-10.1 mg/dL CA Normal 9.5 LAB L501.5300 136-145 mmol/L NA Normal 140 LAB L501.5600 3.5-5.1 mmol/L K Normal 3.5 LAB L501.5900 98-107 mmol/L CL Normal 104 LAB L501.6100 21.0-32.0 mmol/L Normal CO2 27.0 LAB L501.6200 5-15 Normal GAP 9 Performed By: #### L500.2500, L501.6710 #### [facility] [address] [facility] [place], [address] CRP Collected: 09/08/2018 Status: F Source: [place] 5:46 PM [facility] REPOSITORY TYPE CODE TESTS RESULT OUT OF RANGE REFERENCE UNITS LAB L501.6710 0.0-3.0 mg/L Normal < 2.90 C-REACTIVE PROT Result Comment: C-Reactive Protein (CRP) provides useful information for the diagnosis, therapy and monitoring of inflammatory processes and associated diseases. For the evaluation of Relative Risk for Cardiovascular Disease, a High Sensitivity CRP (HSCRP) should be ordered. Performed By: #### L500.2500, L501.6710 #### [facility] [address] [place], [address] HAND MIN 3 VIEWS Observed: 09/02/2018 Status: F Source: [place] 10:27 AM [facility] REPOSITORY [facility] Imaging Services [address] [place] [address] Hand Min 3 Views MR#: [id number] Acct: [id number] Name: ENDER ALVES Rep #: [id number] : 1935 F 82 From: Farzad Banks MD PCP: Zane CORONA,Brian Kowalski Status: REG CLI Study: Hand Min 3 Views Date of Exam: 09/02/18 Exam# [id number] Ordering Dr: Brian Degroot MD STUDY: X-RAY - RIGHT HAND REASON FOR EXAM: Female, 82 years old. Swelling. No known injury. TECHNIQUE: 3 view(s) of the hand. COMPARISON: None. FINDINGS: Normal radiocarpal articulation. Normal distal radioulnar joint. Normal visualized carpal bones. Normal carpal articulations Normal carpometacarpal articulation of the thumb. Normal second through fifth carpometacarpal joints. Normal metacarpi. Normal metacarpophalangeal joint of the thumb. Normal interphalangeal joint of the thumb. Normal proximal and distal phalanges of the thumb. Normal metacarpophalangeal joints of the second through fifth fingers. There is diffuse articular joint space narrowing of the proximal and distal interphalangeal joints of the second through fifth fingers, but without erosive changes or periarticular soft tissue swelling. Normal phalanges of the second through fifth fingers. Diffuse soft tissue swelling. 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 Diffuse soft tissue swelling. Electronically Signed: Farzad Banks MD at 11:03 EST Tel [phone], Service support , CC: Brian Degroot MD Shift Boss: Signed BASIC METABOLIC Collected: 09/02/2018 Status: F Source: [place] PROFILE ([facility]) 10:17 AM [facility] REPOSITORY TYPE CODE TESTS RESULT OUT OF RANGE REFERENCE UNITS LAB L501.0100 74-106 mg/dL High GLU 201 Result Comment: Glucose result greater than or equal to 200 mg/dL suggests DIABETES MELLITUS per A.D.A. criteria. Please note revised GLUCOSE reference range effective 2017. LAB L501.1000 7-18 mg/dL High BUN 19 LAB L501.1100 0.55-1.02 mg/dL Normal CREAT,SERUM 1.02 Result Comment: The validity of the calculated GFR AND GFRAA in patients over 70 years has not been determined. Clinical correlation is essential. LAB L501.1110 >60 mL/min Low EST GFR 55 Result Comment: Non- GFR Calc LAB L501.1115 >60 mL/min Normal EST GFR - AA 67 Result Comment: GFR Calc LAB L501.1300 10-20 RATIO Normal BUN/CRE 18.6 LAB L501.2200 8.5-10.1 mg/dL CA Normal 9.2 LAB L501.5300 136-145 mmol/L NA Normal 138 LAB L501.5600 3.5-5.1 mmol/L Low K 3.3 LAB L501.5900 98-107 mmol/L CL Normal 103 LAB L501.6100 21.0-32.0 mmol/L Normal CO2 26.0 LAB L501.6200 5-15 Normal GAP 9 Performed By: #### L500.2500, L501.1400, L501.6710 #### [facility] [address] [place], [address] URIC ACID Collected: 09/02/2018 Status: F Source: [place] 10:17 AM [facility] REPOSITORY TYPE CODE TESTS RESULT OUT OF RANGE REFERENCE UNITS LAB L501.1400 2.6-6.0 mg/dL Normal URIC 4.6 Result Comment: The drugs N-Acetylcysteine and Metamizole may falsely depress this assay. Performed By: #### L500.2500, L501.1400, L501.6710 #### [facility] [address] [place], [place], [address] CRP Collected: 09/02/2018 Status: F Source: [place] 10:17 AM [facility] REPOSITORY TYPE CODE TESTS RESULT OUT OF RANGE REFERENCE UNITS LAB L501.6710 0.0-3.0 mg/L High 52.30 C-REACTIVE PROT Result Comment: C-Reactive Protein (CRP) provides useful information for the diagnosis, therapy and monitoring of inflammatory processes and associated diseases. For the evaluation of Relative Risk for Cardiovascular Disease, a High Sensitivity CRP (HSCRP) should be ordered. Performed By: #### L500.2500, L501.1400, L501.6710 #### [facility] [address] [place], [place], [id number] CBC W/DIFF, AUTOMATED Collected: 09/02/2018 Status: F Source: [place] 10:17 AM [facility] REPOSITORY TYPE CODE TESTS RESULT OUT OF RANGE REFERENCE UNITS LAB L100.1000 4.4-11.0 K/mm3 Normal WBC 8.4 LAB L100.1200 4.2-5.4 M/mm3 Low RBC 3.50 LAB L100.1300 12.0-15.0 g/dl Low HGB 9.6 LAB L100.1400 37-47 % Low HCT 29.7 LAB L100.1500 81-99 fL Normal MCV 84.9 LAB L100.1600 27.0-32.0 pg Normal MCH 27.4 LAB L100.1700 32-36 g/gl Normal MCHC 32.3 LAB L100.1810 11.6-14.6 % High RDW CV 15.5 LAB L100.1820 35.1-43.9 fl High RDW SD 48.8 LAB L100.1900 150-450 K/mm3 Normal PLT 373 LAB L100.2000 6.2-12.0 fl Normal MPV 9.5 LAB L100.2100 47-70 % Normal NEUT% 60.0 LAB L100.2200 19-41 % Normal LY% 28.7 LAB L100.2300 0-10 % Normal MONO% 9.6 LAB L100.2400 0-5 % Normal EO% 1.1 LAB L100.2500 0-1 % Normal BASO% 0.2 LAB L100.2550 0.0-0.9 % Normal IM GRAN % 0.400 Result Comment: IG% - Immature Granulocytes (promyelocytes, myelocytes and metamyelocytes) > 1% indicates that a LEFT SHIFT is Present. LAB L100.2620 2.0-7.7 X10 3/uL Normal Absolute Neut 5.1 LAB L100.2720 0.83-4.51 X10 3/ul Normal Absolute Lymph 2.42 Performed By: #### L100.0100, L101.9900 #### [place] [facility] [address] [place], [address] ERYTHROCYTE SED RATE Collected: 09/02/2018 Status: F Source: [place] 10:17 AM [facility] REPOSITORY TYPE CODE TESTS RESULT OUT OF RANGE REFERENCE UNITS LAB L102.0000 0-30 mm/hr High SED RATE 102 Performed By: #### L100.0100, L101.9900 #### [facility] [address] [place], [address] PTHIN Collected: 09/02/2018 Status: F Source: [place] 10:17 AM [facility] REPOSITORY Order Comment: DR PALACIOS ORDERED PTH ONLY TYPE CODE TESTS RESULT OUT OF RANGE REFERENCE UNITS LAB L509.1000 18.4-80.1 pg/mL Normal PTHIN 20.9 Performed By: #### L509.1000 #### [facility] [address] [place], [address] INITAL EVALUATION (1) Observed: 08/26/2018 Status: F Source: [place] - PT 12:08 PM [facility] REPOSITORY [facility] [place] [address] Fax REHABILITATION SERVICES INITIAL EVALUATION MR#: [id number] Acct: [id number] Name: ENDER ALVES Rep #: [id number] : 1935 82 From: Wilfredo Chavez PT, Cert. MDT, OCS Referring Dr.: Priyanka Mccartney MD Status: REG RCR Insurance: O MEDICARE SELF PAY INSURANCE Patient's Visit Information ENDER ALVES is a 82 year old F referred to Physical Therapy by Priyanka Mccartney with a diagnosis of BACK PAIN,NECK PAIN ,SHOULDER PAIN. Date of Evaluation: 08/19/18 Physical Therapist: Wilfredo Chavez PT, - Visit Plan Frequency: 2x /Week Duration: 4 Weeks Plan: CERVICAL POSTURAL EX'S,DLS ABD/BACK,POSTURAL EX'S ,UE/LE STRENGTHENING MODALITIES PRE'S - Subjective Subjective: This 82 y/o female presents to physical therapy with back ,neck pain and shoulder pain. This patient has had intermittant pain in back. Symptoms occur with no etiology or mechanism of injury. Pain located in intermittant right leg shoulder. Symptoms better with nothing. Patient has had pain medication.Pain can interfere with sleeping. Denies parathesia/tingling. Patient c/o intermittant edema in legs. Patient has had no trauma. No prior treatment. Patient had epidural injection.Bowel/bladder good. Denies tinnitus/dizziness/CORRALES. Patient had multiple diagnostics in hospital. Patient pain affects QOL and ADL'S. VOCATION: retired. SOCIAL: - Objective POSTURE: mild foward. PALPATION: UT /levator scapular tender ,paraspinals. GAIT: normal shandra reciprocal pattern. NEURO: denies parathesia/tingling ,reflexes 2/3 C5-6-7,L3-4,L4-5,L5-S1 2/3. AROM: BUE WFL. CERVICAL ROM: flexion min loss,extension/lateral flexion mod loss,. LUMBAR ROM: flexion min loss,extension mod loss ,side glides min loss. MMT: quads/hams 4/5,hip flexion 4-/5,ankle 4/5. BUE grossly 4/5,shoulder 4-/5. SYMMTRIES: align - Special Tests C/S Radiculapathy - Left Upper limb tension test: Negative C/S Radiculapathy - Right Upper limb tension test: Negative C/S Radiculapathy - Left Spurlings: Negative C/S Radiculapathy - Right Spurlings: Negative Sharp Cyndi: Negative Vertebral Artery Test: Negative Alar Ligament Test: Negative L/S Slump test left side: Negative L/S Slump test right side: Negative L/S Left Straight Leg Raise: Negative L/S Right Straight Leg Raise: Negative - Goals Goal 1:: Independant with HEP Goal Time Frame: 2-4 Weeks Goal 2:: Patient to improve posture for ADL'S Goal Time Frame: 2-4 Weeks Goal 3:: Patient to decrease pain for function with min episodes of pain 75% to improve function. Goal Time Frame: 2-4 Weeks Goal 4:: Patient improve ablity to perform ADL'S and housework tasks with min limiations Goal Time Frame: 2-4 Weeks Goal 5:: Patient to improve MONICA back disablity score by 5points to improve QOL. Goal Time Frame: 2-4 Weeks - Rehabilitation Potential Physical Therapy Diagnosis: This patient has multiple pain in leg shoulder, back which has been intermttant . Patient pain is better but increases without etiology bor reason. Patient has experienced generalized weakness with pain as well as comorbities infleuences patient condition. Rehabilitation Potential: Good - Anticipated Interventions Patient/Client Instruction: Educate patient on: Condition, Plan of Care For the Purpose of:: To decrease pain, To increase ROM, To improve muscle performance and motor function, To improve ability to perform ADL's, To increase tolerance to activity/condition/position, To improve ability of physical actions for home/community/work/leisure, To improve health of tissue, To decrease soft tissue restriction, To improve ability to perform tasks related to life management Therapeutic Exercise to Include: Strength training, Body mechanics, Postural training, Flexibilty training, Dynamic Lumbar Stabilization For the Purpose of:: To decrease pain, To increase ROM, To improve muscle performance and motor function, To increase tolerance to activity/condition/position, To improve ability of physical actions for home/community/work/leisure, To improve health of tissue, To decrease soft tissue restriction, To increase flexibility/ROM, To improve ability to perform tasks related to life management TENS: Yes IF ES: Yes Thermo therapy (hot pack): Yes Ultrasound (thermal/non thermal): Yes For the Purpose of:: To decrease pain, To increase ROM, To improve health of tissue, To decrease soft tissue restriction Thank you for the opportunity to evaluate your patient. For Medicare and Medicare HMO plans, please review the plan of care and approve it. It will need to be FAXED BACK to us at [phone] for Medicare purposes. Please let me know if there are questions or concerns regarding this plan of care. Physician Signature: Date: <Electronically signed by Wilfredo Chavez PT, Cert. T, OCS> 08/26/18 1208 CC: Priyanka Mccartney MD; Brian Degroot MD CHRISTOPHER Signed HIP, UNI W/ PELVIS Observed: 08/14/2018 Status: F Source: [place] 2-3 VIEWS 3:52 PM [facility] REPOSITORY [facility] Imaging Services [address] [place] [address] HIP, UNI W/ Pelvis 2-3 Views MR#: [id number] Acct: [id number] Name: LONGENDER L Rep #: [id number] : 1935 F 82 From: Neftaly Wyman MD PCP: Zane CORONA,Brian Kowalski Status: REG CLI Study: HIP, UNI W/ Pelvis 2-3 Views Date of Exam: 08/14/18 Exam# [id number] Ordering Dr: Priyanka Mccartney MD STUDY: X-RAY - RIGHT HIP REASON FOR EXAM: Female, 82 years old. Right hip pain. TECHNIQUE: 3 views of the hip. COMPARISON: Report of pelvic images dated January 16, 2011. No comparison images available. FINDINGS: There is generalized osteopenia. Normal femoral head, neck, intertrochanteric region and visualized proximal femur. Normal acetabulum. There is mild arthrosis of both hips. There is arthrosis of both sacroiliac joints, right greater than left, and of the symphysis pubis. Normal visualized superior and inferior pubic rami and ischial tuberosities. 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 Electronically Signed: Neftaly Wyman MD at 16:59 EST , Service support , CC: Priyanka Mccartney MD; Brian Degroot MD Shift Boss: Signed CBC W/DIFF, AUTOMATED Collected: 08/13/2018 Status: F Source: [place] 10:15 AM [facility] REPOSITORY TYPE CODE TESTS RESULT OUT OF RANGE REFERENCE UNITS LAB L100.1000 4.4-11.0 K/mm3 High WBC 21.8 LAB L100.1200 4.2-5.4 M/mm3 Low RBC 4.13 LAB L100.1300 12.0-15.0 g/dl Low HGB 11.4 LAB L100.1400 37-47 % Low HCT 35.9 LAB L100.1500 81-99 fL Normal MCV 86.9 LAB L100.1600 27.0-32.0 pg Normal MCH 27.6 LAB L100.1700 32-36 g/gl Low MCHC 31.8 LAB L100.1810 11.6-14.6 % High RDW CV 15.1 LAB L100.1820 35.1-43.9 fl High RDW SD 46.9 LAB L100.1900 150-450 K/mm3 Normal PLT 439 LAB L100.2000 6.2-12.0 fl Normal MPV 11.0 LAB L100.3100 MANUAL DIFF Normal CELLS COUNTED 100 LAB L100.3200 47-70 % 59 Normal SEGS LAB L100.3400 0-1 % 1 Normal META LAB L100.3800 19-41 % 40 Normal LYMPH LAB L100.5500 ADEQ Normal PLT EST ADEQUATE LAB L100.7000 NORM C AND C NORMAL Normal RED CELL NORM C+C MORPH Performed By: #### L100.0100 #### [facility] [address] [facility] [place], [address] VITAMIN D,25 HYDROXY Collected: 08/13/2018 Status: F Source: [place] 10:15 AM [facility] REPOSITORY TYPE CODE TESTS RESULT OUT OF RANGE REFERENCE UNITS LAB L506.1000 29.95-100.01 ng/mL Normal Vitamin D 34.4 25-OH Result Comment: Vitamin D 25(OH) Status Range Deficiency <20 ng/mL (50nmol/L) Insuffciency 20 - 30 ng/mL (50 - 75 nmol/L) Sufficiency 30 - 100 ng/mL (75 - 250 nmol/L) Toxicity >100 ng/mL (>250 nmol/L) Performed By: #### L506.1000 #### [facility] [address] [place], [address] COMPREHENSIVE METABOLIC Collected: 08/13/2018 Status: F Source: [facility] 10:15 AM [facility] REPOSITORY TYPE CODE TESTS RESULT OUT OF RANGE REFERENCE UNITS LAB L501.0100 74-106 mg/dL High GLU 175 Result Comment: Fasting Glucose result greater than or equal to 126 mg/dL suggests DIABETES MELLITUS per A.D.A. criteria. Please note revised GLUCOSE reference range effective 2017. LAB L501.1000 7-18 mg/dL High BUN 31 LAB L501.1100 0.55-1.02 mg/dL High CREAT,SERUM 1.19 Result Comment: The validity of the calculated GFR AND GFRAA in patients over 70 years has not been determined. Clinical correlation is essential. LAB L501.1110 >60 mL/min Low EST GFR 46 Result Comment: Non- GFR Calc LAB L501.1115 >60 mL/min Low EST GFR - AA 56 Result Comment: GFR Calc LAB L501.1300 10-20 RATIO High BUN/CRE 26.1 LAB L501.1500 6.4-8.2 g/dL T Normal PROT 7.2 LAB L501.1800 3.2-5.0 g/dL Normal ALB 3.5 LAB L501.1950 2.2-4.2 g/dL Normal GLOB 3.7 LAB L501.2000 0.9-2.4 RATIO Normal A/G 0.9 LAB L501.2200 8.5-10.1 mg/dL CA Normal 9.2 LAB L501.4100 15-37 U/L Normal AST 15 LAB L501.4305 45-117 U/L Normal ALK P 62 LAB L501.4405 13-56 U/L Normal ALT 38 LAB L501.4600 0.20-1.00 mg/dL T Normal BILI 0.30 LAB L501.5300 136-145 mmol/L NA Normal 137 LAB L501.5600 3.5-5.1 mmol/L K Normal 3.6 LAB L501.5900 98-107 mmol/L CL Normal 99 LAB L501.6100 21.0-32.0 mmol/L Normal CO2 26.0 LAB L501.6200 5-15 Normal GAP 12 Performed By: #### L500.4050, L501.9520 #### [facility] [address] [place], [place], [address] THYROID STIM HORMONE Collected: 08/13/2018 Status: F Source: [place] (TSH) 10:15 AM [facility] REPOSITORY TYPE CODE TESTS RESULT OUT OF RANGE REFERENCE UNITS LAB L501.9520 0.358-3.74 uIU/mL Normal TSH 2.01 Performed By: #### L500.4050, L501.9520 #### [facility] [address] [place], [address] DISCHARGE SUMMARY Observed: 08/06/2018 Status: F Source: GRACE 3:23 PM [facility] REPOSITORY [facility] Medical Records Department [address] [place] [address] Discharge Summary 08/06/18 1045 MR#: [id number] Acct: [id number] Name: ENDER ALVES Rep #: [id number] : 1935 82 From: Gloria Nix MD PCP: Zane CORONA,Brian Chi Status: DIS IN Y Location: [address] 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) MQR-WIU-Zjfl-Mid OM1 w/ 2.25 x 12 mm Promus Premier 12/30/2013 OVR-UDT-LHI-Prox-Mid OM2 w/ 3.0 x 23 mm Promus Stent 03/05/2010 XKB-HGS-YHF-OM2 w/ Taxus Stent 04/2006 CABG x 3 SVG to D1, SVG-OM AND SVG-RCA History of coronary artery stent placement (Chronic 12/30/13) WUZ-WLY-Xduj-Mid OM1 w/ 2.25 x 12 mm Promus Premier 12/30/2013 AQB-SOX-IGC-Prox-Mid OM2 w/ 3.0 x 23 mm Promus Stent 03/05/2010 OCD-PKO-OSG-OM2 w/ Taxus Stent 04/2006 H/O coronary artery bypass surgery (Chronic 09/08/92) CABG x 3 SVG to D1, SVG-OM AND SVG-RCA HLD (hyperlipidemia) (Chronic) TIA (transient ischemic attack) (Chronic) Carotid bruit (Chronic) Hypertension (Chronic) Hospital Course and Treatment Imaging Results: Diagnostic Data KUB X-Ray 08/04/18 05:02 IMPRESSION: Mild fecal stasis. Nothing acute Electronically Signed: Jovanny Palacios MD at 5:57 EST Tel , Service support , Lumbar Spine X-Ray 08/05/18 12:10 IMPRESSION: Intraoperative imaging provided for right L4-L5 and L5-S1 transforaminal block. Electronically Signed: Farzad Banks MD at 15:42 EST Tel [phone], Service support , pain management- Dr Mccartney Operations: None Procedures: - - Transforaminal epidural selective nerve root block at right L4-L5 and L5-S1 Summary of Care Provided: The patient is a 82 year old F with an extensive past medical history as listed below. She was admitted with a complaint of generalized pain which had been going on for some months. She had had Legionella pneumonia about 5 months prior to admission was travel to [place] to visit her grandchildren. After that she became very weak and had increased generalized pain which have been worsening. She has been seen multiple times in the ED for this pain. She followed up with pain management was due to have a pain block the week of admission. She was unable to carry out her activities of daily living because of the general rise pain. Labs showed ESR of 60 and CRP of 55. Mild leukocytosis of around 13. And was mainly concentrated in her shoulders and her hips N she denied any back pain. A diagnosis of intractable pain due to autoimmune disease possibly polymyalgia rheumatica was made. Patient was started on p.o. prednisone 20 mg daily. DEANNE and rheumatologic panel was also ordered. Patient Improved significantly just on the steroids. Pain management was consulted and she had a pain block on 08/04/2018. Patient's condition improved significantly and she is able to ambulate with physical therapy. She did not want to go to an inpatient rehab facility and preferred to go home with home physical therapy. She was discharged on 08/06/2018. She was given a prescription for p.o. prednisone 20 mg daily for 14 days and she is to follow-up with rheumatology and her primary care doctor before then so that prescription can be renewed for her. She is to follow-up with her primary care doctor in 1 week. Patient was also referred to rheumatology for follow-up. Patient seen and examined prior to discharge. She felt very well had no complaints. Pain had improved significantly. She denied any fever or chills, cough or chest pain, shortness of breath, abdominal pain, any diarrhea vomiting. Review of systems otherwise negative. Labs and vitals reviewed. Home medications reviewed and reconciled. [] Objective: Vital Signs Height 5 ft 4 in Weight: 169 lb 12.095 oz Weight in Pounds 169.8 lbs Pulse Ox 98 - Physical Exam General: Alert, Oriented x3, Cooperative HEENT: Atraumatic, PERRLA, EOMI, Normocephalic Oral: Moist Mucosa Neck: Supple, No JVD, Negative Carotid Bruits Lungs: Clear to auscultation, Normal air movement, No rhonchi, No wheeze, No rales Cardiovascular: Regular rate, Regular Rhythm, Normal S1, Normal S2, No murmurs Abdomen: Bowel Sounds Present, Soft, Non Tender, Non-Distended, No Hepato-splenomegaly Extremities: No clubbing, No cyanosis, No edema, Capillary Refill Less than 3 Seconds Skin: No rashes, No breakdown, Ulcer/ Wound Musculoskeletal: No Tenderness to Palpation of Joints or Extremities Lymphatic: No Cervical, Supraclavicular, or Inguinal Adenopathy Neurological: Cranial nerves II-XII grossly intact, Neuro grossly intact, Motor Exam 5/5 strength throughout Psych/Mental Status: Normal Affect, Appropriate, Alert and oriented to time, place, person, mood and affect Vital Signs Temp Pulse Resp BP Pulse Ox 97.8 F 77 18 141/71 H 98 08/06/18 08:31 08/06/18 08:38 08/06/18 08:31 08/06/18 08:31 08/06/18 08:31 Oxygen Delivery Method Room Air Weight: 169 lb 12.095 oz Body Mass Index (BMI) 29.1 Intake and Output for Last 24 Hours Intake Total 687 / 687 1486 / 1486 1320 / 1320 Output Total 200 / 200 1100 / 1100 1000 / 1000 Balance 487 / 487 386 / 386 320 / 320 Laboratory Tests Past 24 Hrs WBC 13.4 H RBC 3.56 L Hgb 9.8 L Hct 30.5 L MCV 85.7 MCH 27.5 MCHC 32.1 RDW 14.4 POC Glucose POC Glucose 285 H 312 H 360 H POC Glucose 272 H 214 H Discharge Diet: Low fat/ Low Cholesterol Discharge Activity: Return to Normal Activity Weight Bearing Status: Weight bearing as tolerated Call your doctor if you observe: Fever of 101 or Higher, Uncontrolled pain Home Medications: Medications to take at Discharge Levothyroxine [Synthroid] 137 mcg PO DAILY 10/13/13 Potassium Chloride [Klor-Con 10] 20 meq PO BID 10/13/13 Nitroglycerin [Nitrostat] 0.4 mg SUBLINGUAL Q5M PRN 12/21/13 ergocalciferol (vitamin D2) 50,000 unit capsule 50,000 unit PO QMONTH 11/18/17 atorvastatin 20 mg tablet 40 mg PO QHS tab 11/24/17 Amlodipine [Norvasc] 5 mg PO DAILY 03/31/18 Glipizide/Metformin HCl [Glipizide-Metformin 2.5-500 mg] 2 ea PO BID 03/31/18 Valsartan/Hydrochlorothiazide [Valsartan-Hctz 320-25 mg Tab] 320 mg PO DAILY 03/31/18 insulin glargine (U-300) conc. 300 unit/mL (3 mL) subcutaneous pen 27 unit SC QDAY ml 04/08/18 Metoprolol(XL)Succ [Toprol Xl (Beta Liana)] 50 mg PO DAILY 04/22/18 Aspirin [Aspirin, Baby] 81 mg PO DAILY@0800 07/30/18 Isosorbide Mononitrate [Isosorbide Mononitrate ER] 30 mg PO QAM 08/04/18 Pantoprazole Sodium 20 mg PO DAILY #30 tablet. 08/06/18 Prednisone 20 mg PO DAILY #14 tablet 08/06/18 Following Prescrptions Were Given to Patient: Pantoprazole Sodium 20 mg PO DAILY #30 tablet. Prednisone 20 mg PO DAILY #14 tablet Primary Care Physician: Brian Degroot Chi, MD [Primary Care Provider] - Please follow up with your Primary Care Physician in: one week Please Follow Up With: Nori Saba MD When: 1-2 weeks; please call office for appointment Patient Instructions: Erythrocyte Sedimentation Rate Disposition: Home with Home Health Minutes spent on discharge:: 37 Patient Condition:: Stable Medical Necessity - Tobacco Use Smoking Status: Former smoker Meaningful Use Info Meaningful Use Diagnoses (Choose all that apply): None applicable Code Visit Inpatient E AND M: 63170 Disch Hosp 08/06/18 1523 <Electronically signed by Gloria Nix MD> Date Gloria Nix MD Cosigner Signature (if applicable): Date CC: Gloria Nix MD; Brian Degroot MD Signed BEDSIDE GLUCOSE Collected: 08/06/2018 Status: F Source: [place] 11:26 AM [facility] REPOSITORY TYPE CODE TESTS RESULT OUT OF REFERENCE UNITS RANGE LAB L501.080 70-110 mg/dL High BEDSIDE GLU 292 Result Comment: MANAGEMENT OF PATIENT CARE PER NURSING PROTOCOL Performed By: #### L501.080 #### [facility] Point of Care [address] [place] [address] DISCHARGE INSTRUCTION Observed: 08/06/2018 Status: F Source: [place] 10:45 AM [facility] REPOSITORY [facility] Medical Records Department [address] [place] [address] Instructions for Home/Discharge Instructions 08/06/18 1041 MR#: [id number] Acct: [id number] Name: ENDER ALVES Rep #: [id number] : 1935 82 From: Gloria Nix MD PCP: Zane CORONA,Brian Kowalski Status: ADM IN You will use the following diet at home:: Cardiac Your food should be the consistency of: Regular Your liquids should be the consistency of: Regular/Thin Discharge Activity: Return to Normal Activity Weight Bearing Status: Weight bearing as tolerated Call your doctor if you observe: Fever of 101 or Higher, Uncontrolled pain Instructions: Erythrocyte Sedimentation Rate Allergies/Adverse Reactions: Allergies No Known Allergies Allergy (Verified 08/04/18 04:40) Medications to take at Discharge Levothyroxine [Synthroid] 137 mcg PO DAILY 10/13/13 Potassium Chloride [Klor-Con 10] 20 meq PO BID 10/13/13 Nitroglycerin [Nitrostat] 0.4 mg SUBLINGUAL Q5M PRN 12/21/13 ergocalciferol (vitamin D2) 50,000 unit capsule 50,000 unit PO QMONTH 11/18/17 atorvastatin 20 mg tablet 40 mg PO QHS tab 11/24/17 Amlodipine [Norvasc] 5 mg PO DAILY 03/31/18 Glipizide/Metformin HCl [Glipizide-Metformin 2.5-500 mg] 2 ea PO BID 03/31/18 Valsartan/Hydrochlorothiazide [Valsartan-Hctz 320-25 mg Tab] 320 mg PO DAILY 03/31/18 insulin glargine (U-300) conc. 300 unit/mL (3 mL) subcutaneous pen 27 unit SC QDAY ml 04/08/18 Metoprolol(XL)Succ [Toprol Xl (Beta Liana)] 50 mg PO DAILY 04/22/18 Aspirin [Aspirin, Baby] 81 mg PO DAILY@0800 07/30/18 Isosorbide Mononitrate [Isosorbide Mononitrate ER] 30 mg PO QAM 08/04/18 Prednisone 20 mg PO DAILY #14 tablet 08/06/18 The following prescriptions were given: Prednisone 20 mg PO DAILY #14 tablet Primary Care Physician: Brian Degroot Chi, MD [Primary Care Provider] - Please follow up with your Primary Care Physician in: one week Test Results: Test results from this visit will be discussed in further detail at your follow-up appointment, if applicable. Please Follow Up With: Nori Saba MD When: 1-2 weeks; please call office for appointment 08/06/18 0433 <Electronically signed by Gloria Nix MD> Date Gloria Nix MD CC: Priyanka Mccartney MD; Brian Degroot MD BEDSIDE GLUCOSE Collected: 08/06/2018 Status: F Source: [place] 6:41 AM [facility] REPOSITORY TYPE CODE TESTS RESULT OUT OF REFERENCE UNITS RANGE LAB L501.080 70-110 mg/dL High BEDSIDE GLU 285 Result Comment: Insulin Given MANAGEMENT OF PATIENT CARE PER NURSING PROTOCOL Performed By: #### L501.080 #### [facility] Point of Care [address] [place], [place] [id number] BASIC METABOLIC Collected: 08/06/2018 Status: F Source: [place] PROFILE (BMP) 5:06 AM [facility] REPOSITORY TYPE CODE TESTS RESULT OUT OF RANGE REFERENCE UNITS LAB L501.0100 74-106 mg/dL High GLU 284 Result Comment: Glucose result greater than or equal to 200 mg/dL suggests DIABETES MELLITUS per A.D.A. criteria. Please note revised GLUCOSE reference range effective 2017. LAB L501.1000 7-18 mg/dL High BUN 29 LAB L501.1100 0.55-1.02 mg/dL Normal CREAT,SERUM 0.85 Result Comment: The validity of the calculated GFR AND GFRAA in patients over 70 years has not been determined. Clinical correlation is essential. LAB L501.1110 >60 mL/min Normal EST GFR 68 Result Comment: Non- GFR Calc LAB L501.1115 >60 mL/min Normal EST GFR - AA 83 Result Comment: GFR Calc LAB L501.1255 ml/min Normal Estimated CRCL 45.58 LAB L501.1300 10-20 RATIO High BUN/CRE 34.1 LAB L501.2200 8.5-10 mg/dL Normal .1 CA 8.9 LAB L501.5300 136-14 mmol/L Normal 5 NA 137 LAB L501.5600 3.5-5. mmol/L Normal 1 K 4.0 LAB L501.5900 98-107 mmol/L Normal CL 102 LAB L501.6100 21.0-3 mmol/L Normal 2.0 CO2 26.0 LAB L501.6200 5-15 Normal GAP 9 Performed By: #### L500.2500 #### [facility] [address] [place], [place], [id number] CBC W/DIFF, AUTOMATED Collected: 08/06/2018 Status: F Source: [place] 5:06 AM [facility] REPOSITORY TYPE CODE TESTS RESULT OUT OF RANGE REFERENCE UNITS LAB L100.1000 4.4-11.0 K/mm3 High WBC 13.4 LAB L100.1200 4.2-5.4 M/mm3 Low RBC 3.56 LAB L100.1300 12.0-15.0 g/dl Low HGB 9.8 LAB L100.1400 37-47 % Low HCT 30.5 LAB L100.1500 81-99 fL Normal MCV 85.7 LAB L100.1600 27.0-32.0 pg Normal MCH 27.5 LAB L100.1700 32-36 g/gl Normal MCHC 32.1 LAB L100.1810 11.6-14.6 % Normal RDW CV 14.4 LAB L100.1820 35.1-43.9 fl High RDW SD 45.1 LAB L100.1900 150-450 K/mm3 High PLT 466 LAB L100.2000 6.2-12.0 fl Normal MPV 10.2 LAB L100.2100 47-70 % High NEUT% 80.9 LAB L100.2200 19-41 % Low LY% 13.8 LAB L100.2300 0-10 % Normal MONO% 4.4 LAB L100.2400 0-5 % Normal EO% 0.0 LAB L100.2500 0-1 % Normal BASO% 0.1 LAB L100.2550 0.0-0.9 % Normal IM GRAN % 0.800 Result Comment: IG% - Immature Granulocytes (promyelocytes, myelocytes and metamyelocytes) > 1% indicates that a LEFT SHIFT is Present. LAB L100.2620 2.0-7.7 X10 3/uL High Absolute Neut 10.8 LAB L100.2720 0.83-4.51 X10 3/ul Normal Absolute Lymph 1.85 Performed By: #### L100.0100 #### [facility] [address] [facility] [place], [address] BEDSIDE GLUCOSE Collected: 08/05/2018 Status: F Source: [place] 9:22 PM [facility] REPOSITORY TYPE CODE TESTS RESULT OUT OF REFERENCE UNITS RANGE LAB L501.080 70-110 mg/dL High BEDSIDE GLU 312 Result Comment: Insulin Given MANAGEMENT OF PATIENT CARE PER NURSING PROTOCOL Performed By: #### L501.080 #### [facility] Point of Care [address] [place] [address] BEDSIDE GLUCOSE Collected: 08/05/2018 Status: F Source: [place] 4:36 PM [facility] REPOSITORY TYPE CODE TESTS RESULT OUT OF REFERENCE UNITS RANGE LAB L501.080 70-110 mg/dL High BEDSIDE GLU 360 Result Comment: MANAGEMENT OF PATIENT CARE PER NURSING PROTOCOL Performed By: #### L501.080 #### [facility] Point of Care [address] [place] [address] BEDSIDE GLUCOSE Collected: 08/05/2018 Status: F Source: [place] 2:35 PM [facility] REPOSITORY TYPE CODE TESTS RESULT OUT OF REFERENCE UNITS RANGE LAB L501.080 70-110 mg/dL High BEDSIDE GLU 272 Result Comment: MANAGEMENT OF PATIENT CARE PER NURSING PROTOCOL Performed By: #### L501.080 #### [facility] Point of Care [address] [place] [address] BEDSIDE GLUCOSE Collected: 08/05/2018 Status: F Source: [place] 1:14 PM [facility] REPOSITORY TYPE CODE TESTS RESULT OUT OF REFERENCE UNITS RANGE LAB L501.080 70-110 mg/dL High BEDSIDE GLU 214 Result Comment: MANAGEMENT OF PATIENT CARE PER NURSING PROTOCOL Performed By: #### L501.080 #### [facility] Point of Care [address] [place] [address] BEDSIDE GLUCOSE Collected: 08/05/2018 Status: F Source: [place] 6:42 AM [facility] REPOSITORY TYPE CODE TESTS RESULT OUT OF REFERENCE UNITS RANGE LAB L501.080 70-110 mg/dL High BEDSIDE GLU 227 Result Comment: MANAGEMENT OF PATIENT CARE PER NURSING PROTOCOL Performed By: #### L501.080 #### [facility] Point of Care [address] [place] [address] CBC W/DIFF, AUTOMATED Collected: 08/05/2018 Status: F Source: [place] 5:35 AM [facility] REPOSITORY TYPE CODE TESTS RESULT OUT OF RANGE REFERENCE UNITS LAB L100.1000 4.4-11.0 K/mm3 High WBC 15.4 LAB L100.1200 4.2-5.4 M/mm3 Low RBC 3.51 LAB L100.1300 12.0-15.0 g/dl Low HGB 9.8 LAB L100.1400 37-47 % Low HCT 30.0 LAB L100.1500 81-99 fL Normal MCV 85.5 LAB L100.1600 27.0-32.0 pg Normal MCH 27.9 LAB L100.1700 32-36 g/gl Normal MCHC 32.7 LAB L100.1810 11.6-14.6 % Normal RDW CV 14.2 LAB L100.1820 35.1-43.9 fl Normal RDW SD 43.0 LAB L100.1900 150-450 K/mm3 Normal PLT 429 LAB L100.2000 6.2-12.0 fl Normal MPV 10.0 LAB L100.2100 47-70 % High NEUT% 75.4 LAB L100.2200 19-41 % Low LY% 15.3 LAB L100.2300 0-10 % Normal MONO% 8.3 LAB L100.2400 0-5 % Normal EO% 0.1 LAB L100.2500 0-1 % Normal BASO% 0.1 LAB L100.2550 0.0-0.9 % Normal IM GRAN % 0.800 Result Comment: IG% - Immature Granulocytes (promyelocytes, myelocytes and metamyelocytes) > 1% indicates that a LEFT SHIFT is Present. LAB L100.2620 2.0-7.7 X10 3/uL High Absolute Neut 11.6 LAB L100.2720 0.83-4.51 X10 3/ul Normal Absolute Lymph 2.36 Performed By: #### L100.0100 #### [facility] [address] [place], [address] BASIC METABOLIC Collected: 08/05/2018 Status: F Source: [place] PROFILE ([facility]) 5:35 AM [facility] REPOSITORY TYPE CODE TESTS RESULT OUT OF RANGE REFERENCE UNITS LAB L501.0100 74-106 mg/dL High GLU 229 Result Comment: Glucose result greater than or equal to 200 mg/dL suggests DIABETES MELLITUS per A.D.A. criteria. Please note revised GLUCOSE reference range effective 2017. LAB L501.1000 7-18 mg/dL High BUN 28 LAB L501.1100 0.55-1.02 mg/dL Normal CREAT,SERUM 0.89 Result Comment: The validity of the calculated GFR AND GFRAA in patients over 70 years has not been determined. Clinical correlation is essential. LAB L501.1110 >60 mL/min Normal EST GFR 65 Result Comment: Non- GFR Calc LAB L501.1115 >60 mL/min Normal EST GFR - AA 79 Result Comment: GFR Calc LAB L501.1255 ml/min Normal Estimated CRCL 43.53 LAB L501.1300 10-20 RATIO High BUN/CRE 31.6 LAB L501.2200 8.5-10 mg/dL Normal .1 CA 8.9 LAB L501.5300 136-14 mmol/L Normal 5 NA 140 LAB L501.5600 3.5-5. mmol/L Normal 1 K 3.8 LAB L501.5900 98-107 mmol/L Normal CL 104 LAB L501.6100 21.0-3 mmol/L Normal 2.0 CO2 27.0 LAB L501.6200 5-15 Normal GAP 9 Performed By: #### L500.2500 #### [facility] [address] [place], [address] PROTHROMBIN TIME W/INR Collected: 08/05/2018 Status: F Source: [place] 5:35 AM [facility] REPOSITORY TYPE CODE TESTS RESULT OUT OF RANGE REFERENCE UNITS LAB L300.4150 11.7-14.9 SECONDS Normal PROTIME 12.7 LAB L300.4200 Normal INR 1.0 Performed By: #### L300.3900 #### [facility] [address] [place], [address] HEMOGLOBIN A1C Collected: 08/05/2018 Status: F Source: [place] 5:35 AM [facility] REPOSITORY TYPE CODE TESTS RESULT OUT OF RANGE REFERENCE UNITS LAB L501.9985 4.2-6.3 % High HGB A1C 10.5 Performed By: #### L501.9985 #### [facility] [address] [place], [address] LUMBAR SPINE 2 OR 3 Observed: 08/05/2018 Status: F Source: [place] VIEWS 4:28 AM [facility] REPOSITORY [facility] Imaging Services [address] [place] [address] Lumbar Spine 2 or 3 Views MR#: [id number] Acct: [id number] Name: ENDER ALVES Rep #: [id number] : 1935 F 82 From: Farzad Banks MD PCP: Zane CORONA,Brian Kowalski Status: ADM IN Study: Lumbar Spine 2 or 3 Views Date of Exam: 08/05/18 Exam# [id number] Ordering Dr: Priyanka Mccartney MD STUDY: X-RAY - LUMBAR SPINE REASON FOR EXAM: Female, 82 years old. L4-L5 and L5-S1 transforaminal block. TECHNIQUE: 2 coned-down view(s) of the lumbar spine were obtained. COMPARISON: None FINDINGS: Intraoperative imaging provided for right L4-L5 and L5-S1 transforaminal block. RAD/Lumbar Spine 2 or 3 Views IMPRESSION: Intraoperative imaging provided for right L4-L5 and L5-S1 transforaminal block. Electronically Signed: Farzad Banks MD at 15:42 EST Tel [phone], Service support , CC: Priyanka Mccartney MD; Brian Degroot MD Shift Boss: Signed BEDSIDE GLUCOSE Collected: 08/04/2018 Status: F Source: [place] 9:47 PM [facility] REPOSITORY TYPE CODE TESTS RESULT OUT OF REFERENCE UNITS RANGE LAB L501.080 70-110 mg/dL High BEDSIDE GLU 305 Result Comment: MANAGEMENT OF PATIENT CARE PER NURSING PROTOCOL Performed By: #### L501.080 #### [facility] Point of Care [address] [place] [address] BEDSIDE GLUCOSE Collected: 08/04/2018 Status: F Source: [place] 6:03 PM [facility] REPOSITORY TYPE CODE TESTS RESULT OUT OF REFERENCE UNITS RANGE LAB L501.080 70-110 mg/dL High BEDSIDE GLU 409 Result Comment: MANAGEMENT OF PATIENT CARE PER NURSING PROTOCOL Performed By: #### L501.080 #### [facility] Point of Care [address] [place] [address] HISTORY AND PHYSICAL Observed: 08/04/2018 Status: F Source: [place] EXAM 4:23 PM [facility] REPOSITORY [facility] Medical Records Department [address] [place] [address] History and Physical 08/04/18 0707 MR#: [id number] Acct: [id number] Name: ENDER ALVES Rep #: [id number] : 1935 82 From: Gloria Nix MD PCP: Brian Degroot MD, Chi Status: ADM IN Y Location: [place] [address] History of Present Illness Date of Admission: 08/04/18 Chief Complaint: Generalized pain and weakness. The patient is a 82 year old F with an extensive past medical history as listed below. She was admitted through the ED with a complaint of generalized pain which had been going on for some months. Patient had Legionella pneumonia 5 months ago when she traveled to [place] to visit her grandchildren. Subsequent to that patient has been very weak and has been worsening. She has been seen multiple times in the ED for this last one being about a couple of days ago. She had followed up with pain management and was due to have a pain block done on Friday. However generalized pain persisted and so she decided to come into the ED. She denied any fever or chills, cough or chest pain, any shortness of breath, abdominal pain, any diarrhea vomiting. She is unable to carry out activities of daily living because of the generalized pain and was really discomforted about this. Vital signs were unremarkable. Labs showed elevated CRP of 55 and ESR of 60 and she also had mild leukocytosis of around 13. She was started on IV pain medication is been admitted to be managed for generalized chronic pain. 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) DXN-RUH-Ymbg-Mid OM1 w/ 2.25 x 12 mm Promus Premier 12/30/2013 OTZ-NES-UVM-Prox-Mid OM2 w/ 3.0 x 23 mm Promus Stent 03/05/2010 MTS-SNV-MVY-OM2 w/ Taxus Stent 04/2006 CABG x 3 SVG to D1, SVG-OM AND SVG-RCA History of coronary artery stent placement (Chronic 12/30/13) XVU-NXZ-Uqym-Mid OM1 w/ 2.25 x 12 mm Promus Premier 12/30/2013 ZSP-FLO-WHQ-Prox-Mid OM2 w/ 3.0 x 23 mm Promus Stent 03/05/2010 USY-SMI-SBJ-OM2 w/ Taxus Stent 04/2006 H/O coronary artery bypass surgery (Chronic 09/08/92) CABG x 3 SVG to D1, SVG-OM AND SVG-RCA HLD (hyperlipidemia) (Chronic) TIA (transient ischemic attack) (Chronic) Carotid bruit (Chronic) Hypertension (Chronic) Medical History: Medical History (Last Updated 07/23/18 @ 13:02 by Elvira Knight) GI bleed (Chronic) K92.2 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 myocardial infarction (Chronic) I25.2 Atherosclerosis of coronary 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 (Chronic) I25.810 EML-WBP-Oxah-Mid OM1 w/ 2.25 x 12 mm Promus Premier 12/30/2013 AQM-RYH-MKG-Prox-Mid OM2 w/ 3.0 x 23 mm Promus Stent 03/05/2010 TDJ-QFH-SNT-OM2 w/ Taxus Stent 04/2006 CABG x 3 SVG to D1, SVG-OM AND SVG-RCA SVT (supraventricular tachycardia) (Acute) I47.1 Sepsis (Acute) A41.9 HLD (hyperlipidemia) (Chronic) E78.5 TIA (transient ischemic attack) (Chronic) G45.9 Carotid bruit (Chronic) R09.89 Hypertension (Chronic) I10 Acute esophagitis K20.9 Blood in stool K92.1 Type 2 diabetes mellitus without complications E11.9 Pneumonia J18.9 Abnormal finding on cardiovascular stress test (Inactive) R94.39 Allergies No Known Allergies Allergy (Verified 08/04/18 04:40) Home Medications: Ambulatory Orders Medication Instructions Recorded Levothyroxine [Synthroid] 137 mcg PO DAILY 10/13/13 Surgical History: Surgical History (Last Updated 07/23/18 @ 13:03 by Elvira Knight) History of coronary artery stent placement (Chronic) Onset Date: 12/30/13 Z95.5 YAE-BYD-Ntfg-Mid OM1 w/ 2.25 x 12 mm Promus Premier 12/30/2013 MLH-EHZ-QFE-Prox-Mid OM2 w/ 3.0 x 23 mm Promus Stent 03/05/2010 BWC-FQW-LML-OM2 w/ Taxus Stent 04/2006 H/O coronary artery bypass surgery (Chronic) Onset Date: 09/08/92 Z95.1 CABG x 3 SVG to D1, SVG-OM AND SVG-RCA History bilateral cataract surgery History of esophagogastroduodenoscopy (EGD) Onset Date: 04/24/18 Z98.890 History of esophagogastroduodenoscopy (EGD) Onset Date: 06/23/18 Z98.890 History of hemorrhoidectomy Z98.890 History of laparoscopic cholecystectomy Z90.49 S/P colonoscopy Onset Date: 04/24/18 Z98.890 Surgical History: appendectomy, cholecystectomy, coronary bypass surgery, hysterectomy Psychiatric History: No pertinent psych hx 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 Denies: Chills, Fever, Weight Change Eyes: Denies: Blurred vision, Double vision HEENT: Denies: Head Aches, Sinus Congestion, Sinus Drainage Cardiovascular: Denies: Chest Pain, Chest Pressure, Chest Tightness, Edema, Heaviness, Palpitations Respiratory: Denies: Cough, Shortness of breath at rest, Sputum production Gastrointestinal: Denies: Abdominal Pain, Nausea, Vomiting Genitourinary: Denies: Dysuria Musculoskeletal: Reports: Arm Pain, Back Pain, Leg Pain, Muscle pain, Shoulder Pain, - - had generalised pain. Denies: Joint Pain, Joint Tenderness Skin: Denies: Rash, Wounds Neurological: Denies: Numbness, Tingling, Focal weakness Psychiatric: Denies: Anxiety, Depression, Homicidal Ideations, Suicidal Ideations Hematologic/ Lymphatic: Denies: Easy Bruising, Easy Bleeding VTE Information - Inpt Only VTE Present on Admission: No VTE Pharm Prophylaxis ordered?: Yes - Physical Exam General: Alert, Oriented x3, Cooperative, Lethargic, - - very uncomfortable, in significant generalised pain HEENT: Atraumatic, PERRLA, EOMI, Normocephalic Oral: Moist Mucosa Neck: Supple, No JVD, Negative Carotid Bruits Lungs: Clear to auscultation, Normal air movement, No rhonchi, No wheeze, No rales Cardiovascular: Regular rate, Regular Rhythm, Normal S1, Normal S2, No murmurs Abdomen: Bowel Sounds Present, Soft, Non Tender, Non-Distended, No Hepato-splenomegaly Extremities: No clubbing, No cyanosis, No edema, Capillary Refill Less than 3 Seconds Skin: No rashes, No breakdown Musculoskeletal: Tenderness - generalised tenderness; is tender wherever she is touched and kept on moaning. Unable to even sit up on her own Lymphatic: No Cervical, Supraclavicular, or Inguinal Adenopathy Neurological: Cranial nerves II-XII grossly intact, - - decreased power in all extremities (4/5) due to generalised pain Psych/Mental Status: Normal Affect, Appropriate, Alert and oriented to time, place, person, mood and affect Vital Signs Temp Pulse Resp BP Pulse Ox 98.3 F 90 16 146/98 H 96 08/04/18 04:40 08/04/18 06:54 08/04/18 06:54 08/04/18 06:54 08/04/18 06:54 Oxygen Delivery Method Nasal Cannula Weight: 176 lb 5.917 oz Body Mass Index (BMI) 30.2 Laboratory Tests Past 24 Hrs WBC 13.7 H RBC 3.53 L Hgb 9.7 L WBC RBC Hgb Hct MCV MCH MCHC Diagnostic Data KUB X-Ray 08/04/18 05:02 IMPRESSION: Mild fecal stasis. Nothing acute Electronically Signed: Jovanny Palacios MD at 5:57 EST Tel , Service support , Assessment/Plan All Active Problems (Last Updated 07/23/18 @ 13:02 by Elvira Knight) Lightheaded (Acute) Constipation (Acute) Legionella pneumonia (Acute) SVT (supraventricular tachycardia) (Acute) Sepsis (Acute) Pneumonia (Resolved) 82 y/o admitted with a complaint of generalised pain and weakness 1. Debility due to generalised weakness * unable to conduct her ADLs without help. Symptoms have been ongoing for the past 5 months since she got Legionella pneumonia * admit to Med Surg * PT/OT consult * fall precautions * case management consult for placement * 2. Generalised pain and weakness- differential includes polymyalgia rheumatica vs other autoimmune diseases * is severely debilitated. Did not have any tick bites or any rash. ESR and CRP are elevated. * Generalized symptoms with pain being mainly in his shoulders also fits with polymyalgia rheumatica. * Will check for DEANNE and rheumatologic panel. * CPK was only 20 * management as under 1. * Start prednisone 20 mg daily. Consult pain management. Patient was supposed to have Pain block on Friday and Dr. Mccartney is willing to do it was just in the hospital. * 3.Hyponatremia: Na is 133. Likely due to dehydration from decreased intake. Will hydrate and monitor. 4. Leukocytosis: No signs of infection. White cell count is 13.7. Will monitor and defer antibiotics for now. 5. Hypertension: On amlodipine, metoprolol and valsartan/HCTZ. 6. Diabetes mellitus: On insulin glargine 27 international units daily as well as glipizide and metformin. Accu-Cheks AC at bedtime. Insulin sliding scale. 7. CAD: On statin and Imdur. Also on aspirin and metoprolol 8. Hypothyroidism: on synthroid. TSH was 3.09 DVT prophylaxis: Heparin GI Prophylaxis: Famotidine CODE STATUS: Full code. * Patient counseled extensively about different types of CODE STATUS including full code, DNR CCA and DNR CCA. Patient elects to be full code. Total nudj-jm-pxgz time 16 minutes. Code Visit Inpatient E AND M: 59440 Init Hosp L3 Procedures: 37469 Advncd Care Plan 30 Min 08/04/18 8483 <Electronically signed by Gloria Nix MD> Date Gloria Nix MD Cosigner Signature: Date (if applicable) CC: Gloria Nix MD; Brian Degroot MD Signed BEDSIDE GLUCOSE Collected: 08/04/2018 Status: F Source: [place] 4:12 PM [facility] REPOSITORY TYPE CODE TESTS RESULT OUT OF REFERENCE UNITS RANGE LAB L501.080 70-110 mg/dL High BEDSIDE GLU 376 Result Comment: MANAGEMENT OF PATIENT CARE PER NURSING PROTOCOL Performed By: #### L501.080 #### [facility] Point of Care [address] [place] [address] BEDSIDE GLUCOSE Collected: 08/04/2018 Status: F Source: [place] 2:23 PM [facility] REPOSITORY TYPE CODE TESTS RESULT OUT OF REFERENCE UNITS RANGE LAB L501.080 70-110 mg/dL High BEDSIDE GLU 438 Result Comment: MANAGEMENT OF PATIENT CARE PER NURSING PROTOCOL Performed By: #### L501.080 #### [facility] Point of Care [address] [place] [address] GLUCOSE Collected: 08/04/2018 Status: F Source: [place] 12:25 PM [facility] REPOSITORY Order Comment: Comments: BGT >450- CALLED AND NOTIFIED OF SAME TO PHILLIP TYPE CODE TESTS RESULT OUT OF RANGE REFERENCE UNITS LAB L501.0100 74-106 mg/dL High GLU 450 Result Comment: Glucose result greater than or equal to 200 mg/dL suggests DIABETES MELLITUS per A.D.A. criteria. Please note revised GLUCOSE reference range effective 2017. Performed By: #### L501.0100 #### [facility] [address] [place], [address] BEDSIDE GLUCOSE Collected: 08/04/2018 Status: F Source: [place] 12:14 PM [facility] REPOSITORY TYPE CODE TESTS RESULT OUT OF REFERENCE UNITS RANGE LAB L501.080 70-110 mg/dL High alert BEDSIDE GLU 485 Result Comment: Dr Bernal Followed MANAGEMENT OF PATIENT CARE PER NURSING PROTOCOL Performed By: #### L501.080 #### [facility] Point of Care [address] [place] [address] THYROID STIM HORMONE Collected: 08/04/2018 Status: F Source: [place] (TSH) 9:40 AM [facility] REPOSITORY TYPE CODE TESTS RESULT OUT OF RANGE REFERENCE UNITS LAB L501.9520 0.358-3.74 uIU/mL Normal TSH 3.09 Performed By: #### L501.9520 #### [facility] [address] [facility] [place], [address] DEANNE W/ REFLEX MULT Collected: 08/04/2018 Status: F Source: [place] CONFIRM 9:40 AM [facility] REPOSITORY TYPE CODE TESTS RESULT OUT OF RANGE REFERENCE UNITS LAB L3100.5475 Negative Normal Negative DEANNE-DIRECT Result Comment: Performed at: - [facility] [address] [id number] [employer]borne And Air Delivery Specialist: Alejandro Wolff PhD, Phone: [phone] Performed By: #### L3100.5450 #### [facility] (refer to report for specific site) refer to report for address and phone number EMERGENCY DEPARTMENT Observed: 08/04/2018 Status: F Source: [place] SUMMARY 8:56 AM [facility] REPOSITORY [facility] Medical Records Department [address] [place] [address] Emergency Department Summary 08/04/18 0721 MR#: [id number] Acct: [id number] Name: ENDER ALVES Rep #: [id number] : 1935 82 From: Owen Cristina MD PCP: Zane CORONA,Brian Kowalski Status: ADM IN - ER Visit Summary Date of Service: 08/04/18 Chief Complaint: Generalized pain History of Present Illness: The patient is a 82 F presenting for evaluation secondary generalized pain. Patient has a history of having a Legionella pneumonia within the last 5 months. Patient states that prior to that she was actually extremely active and did not have issues with chronic pain. Patient states that since then she has been having issues with migratory chronic pain. Patient states that associated with myalgias that will come and go. She is actually seen in the emergency department for this just couple days ago had a workup was found to be somewhat hypokalemic, and was discharged. Patient is establishing with pain management who feels that she has nerve damage and will require some nerve blocks. Patient states that over the course of the last couple of days however she has been having increasingly worse severe pain associated with generalized tenderness to palpation of her shoulders back and arms. She reports that she has some weakness in her right arm now at this point. She denies any presence of fevers. Patient is taking [place] at home does not seem to be alleviating her symptoms. Physical Examination: Vital signs are unremarkable. Well- nourished well-developed age-appropriate female visibly in pain. Head normocephalic. Moist mucous membranes. No JVD. Heart was somewhat tachycardic on my exam with normal rhythm. Lungs are clear. Abdomen was soft nontender. Patient exhibits diffuse tenderness to palpation of the chest back and upper extremities. Compartments are soft throughout with normal distal pulses. Patient has 2+ bilaterally symmetric lower extremity pitting edema. Patient appears to have normal strength and sensation. Test Results: CBC shows leukocytosis of 13, ESR is 60, CRP elevated at 55 Emergency Department Course and Treatment: Patient presented for evaluation secondary generalized pain. She was treated with morphine and Zofran. Repeat evaluation showed that she had continued pain. Patient does have some elevated inflammatory markers at this point. Patient potentially has a rheumatologic issue versus just chronic pain, but I was unable to control her pain with 2 doses of IV pain medication. Patient's daughter states that she is having extreme difficulty with caring for her at home and is not able to transfer her. I believe patient requires admission at this point. I discussed this with hospitalist. Disposition: Admission Impression: 1. Intractable pain 2. Functional decline This note was generated with Qypeation software. It may contain incorrect words, spelling, and punctuation that were not noted in review of the chart prior to signing ED Disposition - Plan for ED Patient: Chief Complaint: Other, Pain/Inj What to do if you have Problems For any increased pain, shortness of breath, bleeding, nausea or vomiting, chest pain, or any unexpected problems, contact your Primary Care Provider. Call [facility] ([phone]) or report to the closest Emergency Room. Call 911 if necessary. 08/04/18 0856 <Electronically signed by Owen Cristina MD> Date Owen Cristina MD Cosigner Signature (If Indicated): Date CC: Brian Degroot MD BEDSIDE GLUCOSE Collected: 08/04/2018 Status: F Source: [place] 8:10 AM [facility] REPOSITORY TYPE CODE TESTS RESULT OUT OF REFERENCE UNITS RANGE LAB L501.080 70-110 mg/dL High BEDSIDE GLU 295 Result Comment: MANAGEMENT OF PATIENT CARE PER NURSING PROTOCOL Performed By: #### L501.080 #### [facility] Point of Care [facility] [place] [address] URINALYSIS, COMPLETE Collected: 08/04/2018 Status: F Source: [place] 5:50 AM [facility] REPOSITORY Order Comment: How was Urine Obtained? CLEAN CATCH TYPE CODE TESTS RESULT OUT OF RANGE REFERENCE UNITS LAB L400.3000 Yellow COLOR Normal Yellow LAB L400.3050 Clear Normal CLARITY Sl. Cloudy LAB L400.3200 Normal mg/dl High GLUCOSE, UR 1000 LAB L400.3300 Negative mg/dL Normal BILIRUBIN URINE Negative LAB L400.3400 Negative mg/dl High 5 KETONE UR LAB L400.3465 1.002-1.030 Normal SP.GR. DIPSTX 1.015 LAB L400.3550 5.0 - 8.0 pH UR Normal 5.0 LAB L400.3600 Negative mg/dl PROT Normal DIPSTX Negative LAB L400.3700 Normal mg/dl Normal UROBILI Normal LAB L400.3750 Negative Normal NITRITE UR Negative LAB L400.3780 Negative /ul Normal OCCULT BLOOD-UR Negative LAB L400.3800 Negative /ul High LEUK 25 ESTERASE LAB L400.4050 0-5 /hpf WBC Normal 0-5 SEEN LAB L400.4100 0-5 /hpf 0 Normal RBC-UA SEEN LAB L400.4150 5-10 /hpf SQUAM Normal EPI 5-10 SEEN LAB L400.4300 None Seen /hpf 0 Normal BACTERIA SEEN LAB L400.4350 <or=2+ /hpf 0 Normal MUCUS, URINE SEEN Performed By: #### L400.0001 #### [facility] [address] [place], [place], [address] CBC W/DIFF, AUTOMATED Collected: 08/04/2018 Status: F Source: [place] 5:14 AM [facility] REPOSITORY TYPE CODE TESTS RESULT OUT OF RANGE REFERENCE UNITS LAB L100.1000 4.4-11.0 K/mm3 High WBC 13.7 LAB L100.1200 4.2-5.4 M/mm3 Low RBC 3.53 LAB L100.1300 12.0-15.0 g/dl Low HGB 9.7 LAB L100.1400 37-47 % Low HCT 30.0 LAB L100.1500 81-99 fL Normal MCV 85.0 LAB L100.1600 27.0-32.0 pg Normal MCH 27.5 LAB L100.1700 32-36 g/gl Normal MCHC 32.3 LAB L100.1810 11.6-14.6 % Normal RDW CV 14.5 LAB L100.1820 35.1-43.9 fl High RDW SD 45.2 LAB L100.1900 150-450 K/mm3 Normal PLT 382 LAB L100.2000 6.2-12.0 fl Normal MPV 9.8 LAB L100.2100 47-70 % High NEUT% 79.7 LAB L100.2200 19-41 % Low LY% 11.3 LAB L100.2300 0-10 % Normal MONO% 7.8 LAB L100.2400 0-5 % Normal EO% 0.5 LAB L100.2500 0-1 % Normal BASO% 0.1 LAB L100.2550 0.0-0.9 % Normal IM GRAN % 0.600 Result Comment: IG% - Immature Granulocytes (promyelocytes, myelocytes and metamyelocytes) > 1% indicates that a LEFT SHIFT is Present. LAB L100.2620 2.0-7.7 X10 3/uL High Absolute Neut 10.9 LAB L100.2720 0.83-4.51 X10 3/ul Normal Absolute Lymph 1.54 Performed By: #### L100.0100, L101.9900 #### [facility] [address] [place], [place], [address] ERYTHROCYTE SED RATE Collected: 08/04/2018 Status: F Source: [place] 5:14 AM [facility] REPOSITORY TYPE CODE TESTS RESULT OUT OF RANGE REFERENCE UNITS LAB L102.0000 0-30 mm/hr High SED RATE 66 Performed By: #### L100.0100, L101.9900 #### [facility] [address] [place], [place], [address] COMPREHENSIVE METABOLIC Collected: 08/04/2018 Status: F Source: [facility] 5:14 AM [facility] REPOSITORY TYPE CODE TESTS RESULT OUT OF RANGE REFERENCE UNITS LAB L501.0100 74-106 mg/dL High GLU 360 Result Comment: Glucose result greater than or equal to 200 mg/dL suggests DIABETES MELLITUS per A.D.A. criteria. Please note revised GLUCOSE reference range effective 2017. LAB L501.1000 7-18 mg/dL High BUN 27 LAB L501.1100 0.55-1.02 mg/dL Normal CREAT,SERUM 0.93 Result Comment: The validity of the calculated GFR AND GFRAA in patients over 70 years has not been determined. Clinical correlation is essential. LAB L501.1110 >60 mL/min Normal EST GFR 62 Result Comment: Non- GFR Calc LAB L501.1115 >60 mL/min Normal EST GFR - AA 75 Result Comment: GFR Calc LAB L501.1255 ml/min Normal Estimated CRCL 41.66 LAB L501.1300 10-20 RATIO High BUN/CRE 29.1 LAB L501.1500 6.4-8. g/dL Normal 2 T PROT 6.4 LAB L501.1800 3.2-5. g/dL Low 0 ALB 2.5 LAB L501.1950 2.2-4. g/dL Normal 2 GLOB 3.9 LAB L501.2000 0.9-2. RATIO Low 4 A/G 0.6 LAB L501.2200 8.5-10 mg/dL Normal .1 CA 8.8 LAB L501.4100 15-37 U/L Low AST 6 LAB L501.4305 45-117 U/L Normal ALK P 64 LAB L501.4405 13-56 U/L Normal ALT 15 LAB L501.4600 0.20-1 mg/dL Normal .00 T BILI 0.40 LAB L501.5300 136-14 mmol/L Low 5 NA 133 LAB L501.5600 3.5-5. mmol/L Normal 1 K 3.5 LAB L501.5900 98-107 mmol/L Low CL 96 LAB L501.6100 21.0-3 mmol/L Normal 2.0 CO2 26.0 LAB L501.6200 5-15 Normal GAP 11 Performed By: #### L500.4050, L501.3620, L501.6710 #### [facility] [address] [place], [place], [id number] CPK TOTAL, CREATINE Collected: 08/04/2018 Status: F Source: [place] 5:14 AM [facility] REPOSITORY TYPE CODE TESTS RESULT OUT OF RANGE REFERENCE UNITS LAB L501.3620 26-192 U/L Low CPK TOTAL 20 Performed By: #### L500.4050, L501.3620, L501.6710 #### [facility] [address] [place], [place], [address] CRP Collected: 08/04/2018 Status: F Source: [place] 5:14 AM [facility] REPOSITORY TYPE CODE TESTS RESULT OUT OF RANGE REFERENCE UNITS LAB L501.6710 0.0-3.0 mg/L High 55.90 C-REACTIVE PROT Result Comment: C-Reactive Protein (CRP) provides useful information for the diagnosis, therapy and monitoring of inflammatory processes and associated diseases. For the evaluation of Relative Risk for Cardiovascular Disease, a High Sensitivity CRP (HSCRP) should be ordered. Performed By: #### L500.4050, L501.3620, L501.6710 #### [facility] [address] [place], [address] ABDOMEN SINGLE VIEW Observed: 08/04/2018 Status: F Source: [place] 5:03 AM [facility] REPOSITORY [facility] Imaging Services [address] [place] [address] Abdomen Single View MR#: [id number] Acct: [id number] Name: ENDER ALVES Rep #: [id number] : 1935 F 82 From: Jovanny Palacios MD PCP: Zane CORONA,Brian Kowalski Status: REG ER Study: Abdomen Single View Date of Exam: 08/04/18 Exam# [id number] Ordering Dr: Owen Cristina MD STUDY: X-RAY - ABDOMEN/PELVIS REASON FOR EXAM: Female, 82 years old. Constipation TECHNIQUE: 2 views COMPARISON: None. FINDINGS: Surgical clips in the right upper quadrant indicate previous cholecystectomy. There is a mild degree of fecal stasis but no bowel distention or free intraperitoneal air. There are degenerative changes involving the lower thoracic and lumbosacral spines. Both hip joints are normal. RAD/Abdomen Single View IMPRESSION: Mild fecal stasis. Nothing acute Electronically Signed: Jovanny Palacios MD at 5:57 EST Tel , Service support , CC: Owen Critsina; Brian Degroot MD Shift Boss: Signed 12 LEAD ELECTROCARDIOGRAM Observed: 08/03/2018 Status: F Source: [place] 3:57 PM [facility] REPOSITORY [facility] Cardiovascular Services [address] [place] [address] 12 Lead EKG 07/30/18 1751 MR#: [id number] Acct: [id number] Name: ENDER ALVES Rep #: [id number] : 1935 82 From: Robert Bonilla MD Attending Dr: Status: DEP ER Ordering Dr: Owen Cintron MD Date: 07/30/18 Location: ED Sex: F C Admitted: Test Reason : CP Blood Pressure : / mmHG Vent. Rate : 096 BPM Atrial Rate : 096 BPM P-R Int : 134 ms QRS Dur : 098 ms QT Int : 378 ms P-R-T Axes : 044 -40 050 degrees QTc Int : 477 ms Normal sinus rhythm Left axis deviation Incomplete right bundle branch block Inferior infarct , age undetermined Abnormal ECG Confirmed by IRENE CORONA, ROBERT ([id number]), video news editor JUANIS PLUNKETT ([id number]) on 08/03/2018 3:57:20 PM Referred By: Brian Degroot Confirmed By:ROBERT BONILLA MD 08/03/18 1557 Date Robert Bonilla MD CC: Owen Cintron MD; Brian Degroot MD Signed SHOULDER MIN 2 VIEWS Observed: 08/03/2018 Status: F Source: [place] 1:24 PM [facility] REPOSITORY [facility] Imaging Services [address] [place] [address] Shoulder min 2 Views MR#: [id number] Acct: [id number] Name: ENDER ALVES Rep #: [id number] : 1935 F 82 From: Jovanny Palacios MD PCP: Zane CORONA,Brian Kowalski Status: REG CLI Study: Shoulder min 2 Views Date of Exam: 08/03/18 Exam# [id number] Ordering Dr: Priyanka Mccartney MD STUDY: X-RAY - RIGHT SHOULDER REASON FOR EXAM: Female, 82 years old. Shoulder pain TECHNIQUE: 2 view(s) of the shoulder. COMPARISON: None. FINDINGS: There are degenerative changes of the acromioclavicular joint. There is internal rotation of the humeral head. Old healed fractures of some of the right upper ribs. No acute fractures. RAD/Shoulder min 2 Views IMPRESSION: Mild degenerative changes of the acromioclavicular joint. No acute fracture Electronically Signed: Jovanny Palacios MD at 2:09 EST Tel , Service support , CC: Priyanka Mccartney MD; Brian Degroot MD Shift Boss: Signed CERV SPINE 2 OR 3 Observed: 08/03/2018 Status: F Source: [place] VIEWS 1:24 PM [facility] REPOSITORY [facility] Imaging Services [address] [place] [address] Cerv Spine 2 or 3 Views MR#: [id number] Acct: [id number] Name: ENDER ALVES Rep #: [id number] : 1935 F 82 From: Sulaiman Braswell DO PCP: Brian Degroot MD, Chi Status: REG CLI Study: Cerv Spine 2 or 3 Views Date of Exam: 08/03/18 Exam# [id number] Ordering Dr: Priyanka Mccartney MD STUDY: X-RAY - CERVICAL SPINE REASON FOR EXAM: Female, 82 years old. Neck pain TECHNIQUE: 2 view(s) of the cervical spine were obtained. COMPARISON: None FINDINGS: Normal anterior atlantoaxial articulation. Normal odontoid process. There is multi-level endplate spondylosis. There is multi-level degenerative disc disease with multilevel disc space narrowing. The soft tissue structures are unremarkable. RAD/Cerv Spine 2 or 3 Views IMPRESSION: 2 views only. Degenerative changes of the C-spine Electronically Signed: Sulaiman Braswell DO at 10:56 EST Tel , Service support , CC: Priyanka Mccartney MD; Brian Degroot MD Shift Boss: Signed EMERGENCY DEPARTMENT Observed: 07/30/2018 Status: F Source: [place] SUMMARY 10:28 PM [facility] REPOSITORY [facility] Medical Records Department [address] [place] [address] Emergency Department Summary 07/30/182045 MR#: [id number] Acct: [id number] Name: ENDER ALVES Rep #: [id number] : 1935 82 From: Owen Cintron MD PCP: Brian Degroot MD, Chi Status: REG ER - ER Visit Summary Date of Service: 07/30/18 Chief Complaint: Myalgias History of Present Illness: The patient is a 82 F who presents to the emergency department with pain in bilateral arms and thighs. Patient's been having this pain intermittently for the past 4 months. She did have Legionella pneumonia. It was thought that her muscle pain was secondary to her legionnaires disease. She has not had weakness. She denies any chest pain or shortness of breath. She is actually scheduled to see pain management, but not until Friday. She states that her pain is gotten worse over the past 2 days. She states it comes in waves. If she continues to move, does seem to make her pain better. She has been taking Tylenol with little relief. Physical Examination: Vital signs reviewed General: Well-nourished, well-developed Head: Normocephalic, atraumatic Eyes: Pupils equal and reactive, extraocular muscles intact Neck, supple, no lymphadenopathy Heart: Regular rate and rhythm Respiratory: No distress, clear bilaterally Abdomen: Soft, nontender, nondistended, no peritoneal signs Back: Nontender Extremities: Nontender, no edema, no cords Skin: Normal color no rash Neuro: Alert and oriented, no focal or lateralizing deficits Test Results: [] Emergency Department Course and Treatment: The patient presents with diffuse myalgias. It involves her arms and legs. There are some components that definitely seem autoimmune or inflammatory. IV was established. Screening labs were obtained. The patient's ESR is mildly elevated at 67, but I am not sure if this represents an acute polymyalgia rheumatica. The patient was also significantly hypokalemic with a potassium of 2.8. This was replaced IV. Her EKG shows no evidence of prolonged QT. While in the emergency department, the patient did have a short run of SVT that broke spontaneously. She does have a history of this. I obtained a chest x-ray which was unremarkable. Her head CT was unremarkable. Her urine shows no evidence of infection. She has not had a fever or chills. Her muscle enzymes are normal. I do not suspect rhabdo. On reevaluation, she is resting comfortably. I am going to increase the patient's potassium replacement. She is scheduled to see pain management on Friday. She was counseled on concerning symptoms and reasons to return. At this time, given her improvement of symptoms I do feel that she is safe to continue her outpatient therapy given the chronicity of the symptoms. The patient will be discharged home. Treatment Plan: [] Disposition: Discharge Impression: 1. Myalgias 2. Hypokalemia This note was generated with [employer] dictation software. It may contain incorrect words, spelling, and punctuation that were not noted in review of the chart prior to signing ED Disposition - Plan for ED Patient: Chief Complaint: Other, Pain/Inj Instructions: ED Potassium Deficiency Prescriptions: Potassium Chloride [K-Tab ER] 20 meq PO TID #60 tablet.er Referrals: Brian Degroot Chi, MD [Primary Care Provider] - What to do if you have Problems For any increased pain, shortness of breath, bleeding, nausea or vomiting, chest pain, or any unexpected problems, contact your Primary Care Provider. Call [facility] ([phone]) or report to the closest Emergency Room. Call 911 if necessary. 07/30/18 2696 <Electronically signed by Owen Cintron MD> Date Owen Cintron MD Cosigner Signature (If Indicated): Date CC: Brian Degroot MD URINALYSIS, COMPLETE Collected: 07/30/2018 Status: F Source: [facility] 7:10 PM [facility] REPOSITORY Order Comment: Order Date: 07/30/18 Has pt arrived? Y How was Urine Obtained? HAT BLOCKING OPERATOR TO SPECIFY TYPE CODE TESTS RESULT OUT OF RANGE REFERENCE UNITS LAB L400.3000 Yellow COLOR Normal Yellow LAB L400.3050 Clear Normal CLARITY Sl. Cloudy LAB L400.3200 Normal mg/dl Normal GLUCOSE, UR Normal LAB L400.3300 Negative mg/dL Normal BILIRUBIN URINE Negative LAB L400.3400 Negative mg/dl High 5 KETONE UR LAB L400.3465 1.002-1.030 Normal SP.GR. DIPSTX 1.025 LAB L400.3550 5.0 - 8.0 pH UR Normal 5.0 LAB L400.3600 Negative mg/dl High PROT 15 DIPSTX LAB L400.3700 Normal mg/dl High 1 UROBILI LAB L400.3750 Negative Normal NITRITE UR Negative LAB L400.3780 Negative /ul Normal OCCULT BLOOD-UR Negative LAB L400.3800 Negative /ul High LEUK 25 ESTERASE LAB L400.4050 0-5 /hpf WBC Normal 0-5 SEEN LAB L400.4100 0-5 /hpf 0 Normal RBC-UA SEEN LAB L400.4150 5-10 /hpf SQUAM Normal EPI 5-10 SEEN LAB L400.4300 None Seen /hpf 0 Normal BACTERIA SEEN LAB L400.4350 <or=2+ /hpf 0 Normal MUCUS, URINE SEEN LAB L400.4400 0-5 /lpf Normal HYALINE CAST 5-10 SEEN LAB L400.4900 1+ Normal AMORPHOUS Performed By: #### L400.0001 #### [facility] [address] [place], [address] BEDSIDE GLUCOSE Collected: 07/30/2018 Status: F Source: [place] 7:01 PM [facility] REPOSITORY TYPE CODE TESTS RESULT OUT OF REFERENCE UNITS RANGE LAB L501.080 70-110 mg/dL High BEDSIDE GLU 221 Result Comment: MANAGEMENT OF PATIENT CARE PER NURSING PROTOCOL Performed By: #### L501.080 #### [facility] Point of Care [address] [place] [address] BRAIN/HEAD WITHOUT Observed: 07/30/2018 Status: F Source: [facility] CONTRAST 6:56 PM [facility] REPOSITORY [facility] Imaging Services [address] [place] [address] Brain/Head without Contrast MR#: [id number] Acct: [id number] Name: ENDER ALVES Rep #: [id number] : 1935 F 82 From: Ray Fleming DO PCP: Zane CORONA,Brian Kowalski Status: REG ER Study: Brain/Head without Contrast Date of Exam: 07/30/18 Exam# [id number] Ordering Dr: Owen Cintron MD STUDY: CT BRAIN WITHOUT CONTRAST REASON FOR EXAM: Female, 82 years old. Weakness, legionnaires disease RADIATION DOSAGE (If Supplied By Facility): CTDIvol = ( 60.81 ) mGy, DLP = ( 1267.55 ) mGycm TECHNIQUE: Transaxial CT imaging of the brain was performed without administration of intravenous contrast material. Individualized dose optimization techniques were used for this CT. COMPARISON: None. FINDINGS: Normal soft tissue structures. Normal calvarium. Normal size ventricles and extra-axial spaces for the patient's age. Mild white matter microangiopathic ischemic changes of the cerebral hemispheres. Normal basal ganglia and thalami. Normal brainstem. Normal cerebellum. There is no intracranial hemorrhage. There are no findings of an acute ischemic infarction. Normal visualized paranasal sinuses. CT/Brain/Head without Contrast IMPRESSION: Mild age-related changes of the brain. Electronically Signed: Ray Fleming DO at 19:43 EDT Tel [phone], Service support , CC: Owen Cintron MD; Brian Degroot MD Shift Boss: Signed CBC W/DIFF, AUTOMATED Collected: 07/30/2018 Status: F Source: [place] 6:00 PM [facility] REPOSITORY TYPE CODE TESTS RESULT OUT OF RANGE REFERENCE UNITS LAB L100.1000 4.4-11.0 K/mm3 Normal WBC 10.4 LAB L100.1200 4.2-5.4 M/mm3 Low RBC 3.55 LAB L100.1300 12.0-15.0 g/dl Low HGB 9.9 LAB L100.1400 37-47 % Low HCT 29.5 LAB L100.1500 81-99 fL Normal MCV 83.1 LAB L100.1600 27.0-32.0 pg Normal MCH 27.9 LAB L100.1700 32-36 g/gl Normal MCHC 33.6 LAB L100.1810 11.6-14.6 % Normal RDW CV 14.2 LAB L100.1820 35.1-43.9 fl Normal RDW SD 43.4 LAB L100.1900 150-450 K/mm3 Normal PLT 365 LAB L100.2000 6.2-12.0 fl Normal MPV 9.8 LAB L100.2100 47-70 % Normal NEUT% 65.6 LAB L100.2200 19-41 % Normal LY% 22.8 LAB L100.2300 0-10 % Normal MONO% 9.6 LAB L100.2400 0-5 % Normal EO% 1.2 LAB L100.2500 0-1 % Normal BASO% 0.3 LAB L100.2550 0.0-0.9 % Normal IM GRAN % 0.500 Result Comment: IG% - Immature Granulocytes (promyelocytes, myelocytes and metamyelocytes) > 1% indicates that a LEFT SHIFT is Present. LAB L100.2620 2.0-7.7 X10 3/uL Normal Absolute Neut 6.8 LAB L100.2720 0.83-4.51 X10 3/ul Normal Absolute Lymph 2.37 Performed By: #### L100.0100, L101.9900 #### [facility] [place], [address] ERYTHROCYTE SED RATE Collected: 07/30/2018 Status: F Source: [facility] 6:00 PM [facility] REPOSITORY TYPE CODE TESTS RESULT OUT OF RANGE REFERENCE UNITS LAB L102.0000 0-30 mm/hr High SED RATE 67 Performed By: #### L100.0100, L101.9900 #### [facility] [address] [place], [address] COMPREHENSIVE METABOLIC Collected: 07/30/2018 Status: F Source: [place] [facility] 6:00 PM [facility] REPOSITORY TYPE CODE TESTS RESULT OUT OF RANGE REFERENCE UNITS LAB L501.0100 74-106 mg/dL High GLU 227 Result Comment: Glucose result greater than or equal to 200 mg/dL suggests DIABETES MELLITUS per A.D.A. criteria. Please note revised GLUCOSE reference range effective 2017. LAB L501.1000 7-18 mg/dL High BUN 32 LAB L501.1100 0.55-1.02 mg/dL High CREAT,SERUM 1.16 Result Comment: The validity of the calculated GFR AND GFRAA in patients over 70 years has not been determined. Clinical correlation is essential. LAB L501.1110 >60 mL/min Low EST GFR 48 Result Comment: Non- GFR Calc LAB L501.1115 >60 mL/min Low EST GFR - AA 58 Result Comment: GFR Calc LAB L501.1255 ml/min Normal Estimated CRCL 33.40 LAB L501.1300 10-20 RATIO High BUN/CRE 27.6 LAB L501.1500 6.4-8. g/dL Normal 2 T PROT 6.7 LAB L501.1800 3.2-5. g/dL Low 0 ALB 2.8 LAB L501.1950 2.2-4. g/dL Normal 2 GLOB 3.9 LAB L501.2000 0.9-2. RATIO Low 4 A/G 0.7 LAB L501.2200 8.5-10 mg/dL Normal .1 CA 9.2 LAB L501.4100 15-37 U/L Low AST 8 LAB L501.4305 45-117 U/L Normal ALK P 72 LAB L501.4405 13-56 U/L Normal ALT 15 LAB L501.4600 0.20-1 mg/dL Normal .00 T BILI 0.40 LAB L501.5300 136-14 mmol/L Low 5 NA 135 LAB L501.5600 3.5-5. mmol/L Low 1 K 2.8 LAB L501.5900 98-107 mmol/L Low CL 97 LAB L501.6100 21.0-3 mmol/L Normal 2.0 CO2 27.0 LAB L501.6200 5-15 Normal GAP 11 Performed By: #### L500.4050, L501.3620, L501.4010 #### [facility] [address] [place], [address] CPK TOTAL, CREATINE Collected: 07/30/2018 Status: F Source: [place] 6:00 PM [facility] REPOSITORY TYPE CODE TESTS RESULT OUT OF RANGE REFERENCE UNITS LAB L501.3620 26-192 U/L Normal CPK TOTAL 28 Performed By: #### L500.4050, L501.3620, L501.4010 #### [facility] [address] [place], [address] TROPONIN-I Collected: 07/30/2018 Status: F Source: [place] 6:00 PM [facility] REPOSITORY TYPE CODE TESTS RESULT OUT OF RANGE REFERENCE UNITS LAB L501.4010 <0.045 ng/mL Normal < 0.015 TROPONIN-I Result Comment: TROPONIN-I EXPECTED VALUES <0.045 Negative 0.045 - 0.590 Consistent with Cardiac Damage > OR = 0.600 Critical Value Not every elevated troponin is indicative of IA. These values should be used with clinical judgement in examining the patient's clinical picture for diagnosis. To establish a diagnosis of IA versus myocardial injury, there must be a demonstrated rise and/or fall in the troponin values, in addition to ischemic symptoms, EKG changes, new regional wall motion abnormality, and/or angiographical evidence. PLEASE NOTE: REFERENCE RANGES EDITED 18 Performed By: #### L500.4050, L501.3620, L501.4010 #### [facility] [address] [place], [address] CHEST PA AND LATERAL Observed: 07/30/2018 Status: F Source: [place] 5:42 PM [facility] REPOSITORY [facility] Imaging Services [address] [place] [address] Chest PA and Lateral MR#: [id number] Acct: [id number] Name: ENDER ALVES Rep #: [id number] : 1935 F 82 From: Ray Fleming DO PCP: Brian Degroot MD, Chi Status: REG ER Study: Chest PA and Lateral Date of Exam: 07/30/18 Exam# [id number] Ordering Dr: Owen Cintron MD STUDY: X-RAY CHEST REASON FOR EXAM: Female, 82 years old. Cough TECHNIQUE: Frontal and lateral views COMPARISON: May 04, 2018 FINDINGS: Stable sternotomy wires. The lungs are clear and expanded. There is no demonstrated pleural abnormality. Normal size heart. Normal mediastinum and norma. Normal visualized pulmonary arteries. Normal visualized aortic arch and descending thoracic aorta. Degenerative changes of the thoracic spine. Old right rib fractures. There is no demonstrated abnormality of the visualized soft tissue structures of the upper abdomen. RAD/Chest PA and Lateral IMPRESSION: No acute pulmonary pathology of the chest. Electronically Signed: Ray Fleming DO at 18:34 EDT Tel [phone], Service support , CC: Owen Cintron MD; Brian Degroot MD Shift Boss: Signed SURGERY VISIT REPORT Observed: 07/24/2018 Status: F Source: [place] 9:13 AM [facility] [address] [place] [address] [address] [place] [address] OFFICE VISIT Date of Service: 07/23/18 MR#: [id number] Acct: [id number] Name: ENDER ALVES Rep #: [id number] : 1935 Provider: Raymond Felder MD Age/Sex: 82/F Location: [facility] Status: Signed Intake Intake Visit Reasons: PO Upper Scope 06/23 Chief Complaint: Follow-up visit. Long Chain Beamer Required: No Is patient in pain?: No Allergies No Known Allergies Allergy (Verified 07/23/18 13:03) Medications Levothyroxine [Synthroid] 150 mcg PO DAILY 10/13/13 [History Confirmed 07/23/18] Potassium Chloride [Klor-Con 10] 20 meq PO BID 10/13/13 [History Confirmed 07/23/18] Nitroglycerin [Nitrostat] 0.4 mg SUBLINGUAL Q5M PRN 12/21/13 [History Confirmed 07/23/18] isosorbide mononitrate ER 30 mg tablet,extended release 24 hr 30 mg PO QAM #90 tab 10/28/17 [Rx Confirmed 07/23/18] ergocalciferol (vitamin D2) 50,000 unit capsule 50,000 unit PO QMONTH 11/18/17 [History Confirmed 07/23/18] atorvastatin 20 mg tablet 40 mg PO QHS tab 11/24/17 [History Confirmed 07/23/18] Amlodipine [Norvasc] 5 mg PO DAILY 03/31/18 [History Confirmed 07/23/18] Glipizide/Metformin HCl [Glipizide-Metformin 2.5-500 mg] 2 ea PO BID 03/31/18 [History Confirmed 07/23/18] Valsartan/Hydrochlorothiazide [Valsartan-Hctz 320-25 mg Tab] 1 ea PO DAILY 03/31/18 [History Confirmed 07/23/18] insulin glargine (U-300) conc. 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) SVT (supraventricular tachycardia) (Acute) Sepsis (Acute) HLD (hyperlipidemia) (Chronic) TIA (transient ischemic attack) (Chronic) Carotid bruit (Chronic) Hypertension (Chronic) Acute esophagitis (Acute) Blood in stool (Acute) Type 2 diabetes mellitus without complications (Acute) Pneumonia (Resolved) Abnormal finding on cardiovascular stress test (Inactive) Surgical History History of coronary artery stent placement (Chronic 12/30/13) H/O coronary artery bypass surgery (Chronic 09/08/92) History bilateral cataract surgery (Acute) History of esophagogastroduodenoscopy (EGD) (Acute 04/24/18) History of esophagogastroduodenoscopy (EGD) (Acute 06/23/18) History of hemorrhoidectomy (Acute) History of laparoscopic cholecystectomy (Acute) S/P colonoscopy (Acute 04/24/18) Family History Mother Colon cancer Mother Heart disease Social History Smoking Status: Former smoker alcohol intake: current substance use type: does not use HPI HPI HPI: ENDER ALVES, is a 82 F who presents to the office today for follow-up after EGD for esophagitis. The patient had Dang esophagitis on EGD. She completed a 2-week course of fluconazole. She is having no abdominal pain or reflux. She is having no blood in her stool and has restarted her anticoagulation. ROS General General: No weight change or fatigue Musc Additional Details: She is complaining of some muscle pain in her thighs and upper arms Cardio Cardiovascular: No murmur, pacemaker, heart disease, atrial fibrillation, high blood pressure, heart attack, heart stent, palpitations, shortness of breat with exertion or chest pain Psych Psychiatric: No depression or anxiety Resp Respiratory: No shortness of breath, No sleep apnea, No cough, No COPD, No asthma, No emphysema, No wheezing Gastro Gastrointestinal: No abdominal pain, No nausea or vomiting, No diarrhea, No constipation, No blood in stool, No acid reflux, No hemorrhoids, No ulcers, No gallbladder problem, No black,tarry stools Toney Hematologic: No blood thinners Exam Const General: cooperative Orientation: alert, oriented x3 Resp Effort AND Inspection: normal respiratory effort Auscultation: clear to auscultation bilaterally Cardio Rate: regular rate Rhythm: regular rhythm Heart Sounds: no murmurs GI Inspection: non-distended Palpation: soft, nontender Assessment AND Plan Problems 1. Dang esophagitis B37.81 Plan 1. On repeat EGD patient had resolution of her esophagitis but she still had a lot of candidiasis. She recently completed a 2-week course of p.o. fluconazole and is doing well. 2. Patient has resumed her anticoagulation and she is not having any blood in her stool 3. Follow-up as needed Raymond Felder MD Pager: [facility] [address] [place] [address], [address] [place] [address] Office: Coding Level of Care Code Off vis,est,level 2 Diagnoses Dang esophagitis B37.81 07/24/18 0913 <Electronically signed by Raymond Felder MD> Date Raymond Felder MD Cosigner Signature: Date (if applicable) CC: Brian Degroot MD L/S SPINE W BEND Observed: 07/22/2018 Status: F Source: [place] MIN 6 VW 10:32 AM [facility] REPOSITORY [facility] Imaging Services [address] [place] [address] L/S Spine w Bend Min 6 Vw MR#: [id number] Acct: [id number] Name: ENDER ALVES Rep #: [id number] : 1935 F 82 From: Noe Ortiz MD PCP: Brian Degroot MD, Chi Status: REG CLI Study: L/S Spine w Bend Min 6 Vw Date of Exam: 07/22/18 Exam# [id number] Ordering Dr: Brian Degroot MD STUDY: X-RAY - LUMBOSACRAL SPINE REASON FOR EXAM: Female, 82 years old. Pain down back of legs TECHNIQUE: 6 view(s) of the lumbosacral spine were obtained. COMPARISON: None FINDINGS: Normal alignment. Lower lumbar facet disease. Degenerative disc disease at the L1-2 level. No abnormal motion between flexion and extension. Aortic calcifications. No compression deformity. Cholecystectomy clips. RAD/L/S Spine w Bend Min 6 Vw IMPRESSION: Normal alignment. Lower lumbar facet disease. Degenerative disc disease at the L1-2 level. No abnormal motion between flexion and extension. Electronically Signed: Noe Ortiz MD at 11:21 EDT Tel , Service support , CC: Brian Degroot MD Shift Boss: Signed SPINE LUMBAR Observed: 07/22/2018 Status: F Source: [place] (ROUTINE) 9:32 AM [facility] REPOSITORY [facility] Imaging Services [address] [place] [address] Spine Lumbar (Routine) MR#: [id number] Acct: [id number] Name: ENDER ALVES Rep #: [id number] : 1935 F 82 From: Noe Ortiz MD PCP: Brian Degroot MD, Chi Status: REG CLI Study: Spine Lumbar (Routine) Date of Exam: 07/22/18 Exam# [id number] Ordering Dr: Brian Degroot MD ADDENDUM by Noe Ortiz MD on 07/25/18 at 0745 ADDENDUM Comparison has been made to radiographs obtained 07/22/2018. Significant foraminal stenoses at L4-5 and L5-S1 described on current MRI are not well seen on radiographic exam. Degenerative disc disease described at L1-2 is less conspicuous on MRI exam. Electronically Signed: Noe Ortiz MD at 7:45 EDT Tel , Service support , 07/25/18 0745 Date cc: Brian Degroot MD * Signed ADDENDUM by Noe Ortiz MD on 07/25/18 at 0745 MRI/Spine Lumbar (Routine) 07/25/18 0752 Date cc: Brian Degroot MD * Signed STUDY: MRI LUMBAR SPINE WITHOUT CONTRAST REASON FOR EXAM: Female, 82 years old. Radiculopathy and bilateral pain and numbness in the legs TECHNIQUE: Standardized fat and water weighted pulse sequences were obtained in the sagittal and axial planes. COMPARISON: None FINDINGS: T12-L1: Bulging annulus and central disc protrusion with mild to moderate central canal stenosis and mild left foraminal stenosis. Normal lumbar lordosis. There is no substantial scoliosis. Normal conus medullaris that terminates at the L2 level. Large incidental vertebral body hemangiomata at the T12 and L1 levels. L1-2: Bulging annulus and bilateral facet hypertrophy with mild to moderate central canal stenosis and moderate bilateral foraminal stenoses. L2-3: Bulging annulus with moderate central canal stenosis and bilateral foraminal stenoses. L3-4: Bulging annulus and bilateral facet and ligamentum flavum hypertrophy with moderate central canal stenosis and moderate left and mild right foraminal stenoses. L4-5: Bulging annulus and bilateral facet and ligamentum flavum hypertrophy with moderate to severe right lateral recess stenosis and severe right and moderate left foraminal stenoses. L5-S1: Bulging annulus and bilateral facet hypertrophy with severe bilateral foraminal stenoses. Normal visualized sacral ala. Normal visualized paraspinous soft tissue structures. MRI/Spine Lumbar (Routine) IMPRESSION: Multilevel degenerative disease as described. Severe foraminal stenoses are present on the right at L4-5 and bilaterally at L5-S1. Electronically Signed: Noe Ortiz MD at 10:38 EDT Tel , Service support , CC: Brian Degroot MD Shift Boss: Signed BASIC METABOLIC Collected: 07/15/2018 Status: F Source: [place] PROFILE ([facility]) 10:11 AM [facility] REPOSITORY TYPE CODE TESTS RESULT OUT OF RANGE REFERENCE UNITS LAB L501.0100 74-106 mg/dL High GLU 258 Result Comment: Glucose result greater than or equal to 200 mg/dL suggests DIABETES MELLITUS per A.D.A. criteria. Please note revised GLUCOSE reference range effective 2017. LAB L501.1000 7-18 mg/dL High BUN 25 LAB L501.1100 0.55-1.02 mg/dL High CREAT,SERUM 1.07 Result Comment: The validity of the calculated GFR AND GFRAA in patients over 70 years has not been determined. Clinical correlation is essential. LAB L501.1110 >60 mL/min Low EST GFR 52 Result Comment: Non- GFR Calc LAB L501.1115 >60 mL/min Normal EST GFR - AA 63 Result Comment: GFR Calc LAB L501.1300 10-20 RATIO High BUN/CRE 23.4 LAB L501.2200 8.5-10.1 mg/dL CA Normal 9.5 LAB L501.5300 136-145 mmol/L NA Normal 136 LAB L501.5600 3.5-5.1 mmol/L K Normal 4.1 LAB L501.5900 98-107 mmol/L CL Normal 103 LAB L501.6100 21.0-32.0 mmol/L Normal CO2 25.0 LAB L501.6200 5-15 Normal GAP 8 Performed By: #### L500.2500, L501.6710 #### [facility] [address] [place], [address] CRP Collected: 07/15/2018 Status: F Source: [place] 10:11 AM [facility] REPOSITORY TYPE CODE TESTS RESULT OUT OF RANGE REFERENCE UNITS LAB L501.6710 0.0-3.0 mg/L High 9.00 C-REACTIVE PROT Result Comment: C-Reactive Protein (CRP) provides useful information for the diagnosis, therapy and monitoring of inflammatory processes and associated diseases. For the evaluation of Relative Risk for Cardiovascular Disease, a High Sensitivity CRP (HSCRP) should be ordered. Performed By: #### L500.2500, L501.6710 #### [facility] [address] [place], [address] ERYTHROCYTE SED RATE Collected: 07/15/2018 Status: F Source: [place] 10:11 AM [facility] REPOSITORY TYPE CODE TESTS RESULT OUT OF RANGE REFERENCE UNITS LAB L102.0000 0-30 mm/hr High SED RATE 58 Performed By: #### L101.9900, L100.0100 #### [facility] [address] [place], [address] CBC W/DIFF, AUTOMATED Collected: 07/15/2018 Status: F Source: [place] 10:11 AM [facility] REPOSITORY TYPE CODE TESTS RESULT OUT OF RANGE REFERENCE UNITS LAB L100.1000 4.4-11.0 K/mm3 High WBC 14.6 LAB L100.1200 4.2-5.4 M/mm3 Low RBC 3.97 LAB L100.1300 12.0-15.0 g/dl Low HGB 11.1 LAB L100.1400 37-47 % Low HCT 33.9 LAB L100.1500 81-99 fL Normal MCV 85.4 LAB L100.1600 27.0-32.0 pg Normal MCH 28.0 LAB L100.1700 32-36 g/gl Normal MCHC 32.7 LAB L100.1810 11.6-14.6 % Normal RDW CV 14.6 LAB L100.1820 35.1-43.9 fl High RDW SD 44.0 LAB L100.1900 150-450 K/mm3 Normal PLT 375 LAB L100.2000 6.2-12.0 fl Normal MPV 11.3 LAB L100.2100 47-70 % Normal NEUT% 66.7 LAB L100.2200 19-41 % Normal LY% 24.2 LAB L100.2300 0-10 % Normal MONO% 7.0 LAB L100.2400 0-5 % Normal EO% 1.0 LAB L100.2500 0-1 % Normal BASO% 0.3 LAB L100.2550 0.0-0.9 % Normal IM GRAN % 0.800 Result Comment: IG% - Immature Granulocytes (promyelocytes, myelocytes and metamyelocytes) > 1% indicates that a LEFT SHIFT is Present. LAB L100.2620 2.0-7.7 X10 3/uL High Absolute Neut 9.7 LAB L100.2720 0.83-4.51 X10 3/ul Normal Absolute Lymph 3.53 Performed By: #### L101.9900, L100.0100 #### [facility] [address] [place], [place], [address] ESOPHAGEAL BIOPSY Observed: 06/23/2018 Status: F Source: [place] 8:00 AM [facility] REPOSITORY Patient: ENDER ALVES : 1935 (82/F) Acct Num: [id number] Phys: Raymond Felder MD Unit Num: [id number] Loc: EN Specimen: [id number] Received: 06/23/18 - 1121 Spec Type: ESOPH BX TISSUES 1 TISSUES: Esophagus, NOS COMMENT GMS stain with matched control supports the above diagnosis. GROSS DESCRIPTION Received in fixative is one container labeled with the patient's name and designated distal esophageal biopsy. The specimen consists of multiple irregular fragments of light atkinson soft tissue that in aggregate measure 1.5 x 0.5 x 0.2 cm. The specimen is totally submitted in one cassette. / RY:justice 06/23/18 TC:2 CPT: 95052, 34391 HEADER OPERATION[place] [place] DIAGNOSIS: Esophagitis TISSUE SUBMITTED: Distal esophageal biopsy to rule out fungus MICROSCOPIC DESCRIPTION Slides are reviewed. MICROSCOPIC DIAGNOSIS Distal esophagus, biopsy: Acute esophagitis. Abundant fungal organisms consistent with dang species. AM:justice 06/24/18 Signed Eugenio Ruizih 06/24/18 <signature on file> Performed By: #### KELINO #### [facility] [address] [place], [place], [address] BEDSIDE GLUCOSE Collected: 06/23/2018 Status: F Source: [place]ACE 7:44 AM [facility] REPOSITORY TYPE CODE TESTS RESULT OUT OF REFERENCE UNITS RANGE LAB L501.080 70-110 mg/dL High BEDSIDE GLU 170 Result Comment: MANAGEMENT OF PATIENT CARE PER NURSING PROTOCOL Performed By: #### L501.080 #### [facility] Point of Care [address] [place], [place] [address] PROTHROMBIN TIME W/INR Collected: 06/11/2018 Status: F Source: GRACE 4:19 PM [facility] REPOSITORY TYPE CODE TESTS RESULT OUT OF RANGE REFERENCE UNITS LAB L300.4150 11.7-14.9 SECONDS Normal PROTIME 12.0 LAB L300.4200 Normal INR 0.9 Performed By: #### L300.3900, L300.4310 #### [facility] [address] [place], [address] PARTIAL THROMBOPLAST Collected: 06/11/2018 Status: F Source: [place]ACE TIME 4:19 PM [facility] REPOSITORY TYPE CODE TESTS RESULT OUT OF RANGE REFERENCE UNITS LAB L300.4310 24.1-36.2 Seconds Normal PTT 24.6 Performed By: #### L300.3900, L300.4310 #### [facility] [address] [place], [address] CBC W/DIFF, AUTOMATED Collected: 06/11/2018 Status: F Source: [place]ACE 4:19 PM [facility] REPOSITORY TYPE CODE TESTS RESULT OUT OF RANGE REFERENCE UNITS LAB L100.1000 4.4-11.0 K/mm3 High WBC 12.8 LAB L100.1200 4.2-5.4 M/mm3 Low RBC 3.95 LAB L100.1300 12.0-15.0 g/dl Low HGB 11.1 LAB L100.1400 37-47 % Low HCT 34.2 LAB L100.1500 81-99 fL Normal MCV 86.6 LAB L100.1600 27.0-32.0 pg Normal MCH 28.1 LAB L100.1700 32-36 g/gl Normal MCHC 32.5 LAB L100.1810 11.6-14.6 % Normal RDW CV 14.4 LAB L100.1820 35.1-43.9 fl High RDW SD 44.7 LAB L100.1900 150-450 K/mm3 Normal PLT 265 LAB L100.2000 6.2-12.0 fl Normal MPV 11.2 LAB L100.2100 47-70 % Normal NEUT% 69.4 LAB L100.2200 19-41 % Normal LY% 20.9 LAB L100.2300 0-10 % Normal MONO% 7.6 LAB L100.2400 0-5 % Normal EO% 1.0 LAB L100.2500 0-1 % Normal BASO% 0.2 LAB L100.2550 0.0-0.9 % Normal IM GRAN % 0.900 Result Comment: IG% - Immature Granulocytes (promyelocytes, myelocytes and metamyelocytes) > 1% indicates that a LEFT SHIFT is Present. LAB L100.2620 2.0-7.7 X10 3/uL High Absolute Neut 8.9 LAB L100.2720 0.83-4.51 X10 3/ul Normal Absolute Lymph 2.68 Performed By: #### L100.0100 #### [facility] [address], [address] BASIC METABOLIC Collected: 06/11/2018 Status: F Source: GRACE PROFILE (BMP) 4:19 PM [facility] REPOSITORY TYPE CODE TESTS RESULT OUT OF RANGE REFERENCE UNITS LAB L501.0100 74-106 mg/dL High GLU 320 Result Comment: Glucose result greater than or equal to 200 mg/dL suggests DIABETES MELLITUS per A.D.A. criteria. Please note revised GLUCOSE reference range effective 2017. LAB L501.1000 7-18 mg/dL High BUN 24 LAB L501.1100 0.55-1.02 mg/dL High CREAT,SERUM 1.10 Result Comment: The validity of the calculated GFR AND GFRAA in patients over 70 years has not been determined. Clinical correlation is essential. LAB L501.1110 >60 mL/min Low EST GFR 51 Result Comment: Non- GFR Calc LAB L501.1115 >60 mL/min Normal EST GFR - AA 61 Result Comment: GFR Calc LAB L501.1300 10-20 RATIO High BUN/CRE 21.8 LAB L501.2200 8.5-10.1 mg/dL CA Normal 9.2 LAB L501.5300 136-145 mmol/L NA Normal 138 LAB L501.5600 3.5-5.1 mmol/L K Normal 3.6 LAB L501.5900 98-107 mmol/L CL Normal 104 LAB L501.6100 21.0-32.0 mmol/L Normal CO2 24.0 LAB L501.6200 5-15 Normal GAP 10 Performed By: #### L500.2500 #### [facility] [address] [facility] [place], [address] KNEE 4 OR MORE Observed: 05/28/2018 Status: F Source: [place] VIEWS 2:59 PM [facility] REPOSITORY [facility] Imaging Services [address] [place] [address] Knee 4 or More Views MR#: [id number] Acct: [id number] Name: ENDER ALVES Rep #: [id number] : 1935 F 82 From: Juan Valadez MD PCP: Zane CORONA,Brian Kowalski Status: REG CLI Study: Knee 4 or More Views Date of Exam: 05/28/18 Exam# [id number] Ordering Dr: Brian Degroot MD STUDY: X-RAY - LEFT KNEE REASON FOR EXAM: Female, 82 years old. Chronic knee pain. No known injury. TECHNIQUE: 4 view(s) of the knee. COMPARISON: None. FINDINGS: Borderline subcortical sclerosis of the medial femoral condyle.. There is subcortical sclerosis of the medial tibial plateau. Normal visualized proximal fibula. There is early cortical spurring at the patellar insertion of the quadriceps tendon. There is no demonstrated destructive osseous lesion or fracture. There is mild degenerative arthrosis of the medial femorotibial compartment. Normal lateral femorotibial compartment. Normal patellofemoral articulation. Normal proximal tibiofibular articulation. There is no demonstrated joint effusion. Incidental note of surgical clips in the soft tissues of the right thigh and calf consistent with prior saphenous vein harvest. Nodular densities in the lateral subcutaneous tissues of the distal right thigh and calf suggest venous varices. RAD/Knee 4 or More Views IMPRESSION: 1. Mild degenerative change in the medial femorotibial compartment. 2. Prior right saphenous vein are seen. Electronically Signed: Walker Valadez MD at 23:03 EDT , Service support , CC: Brian Degroot MD Shift Boss: Signed CBC W/DIFF, AUTOMATED Collected: 05/28/2018 Status: F Source: [place] 2:44 PM [facility] REPOSITORY TYPE CODE TESTS RESULT OUT OF RANGE REFERENCE UNITS LAB L100.1000 4.4-11.0 K/mm3 High WBC 12.1 LAB L100.1200 4.2-5.4 M/mm3 Low RBC 3.92 LAB L100.1300 12.0-15.0 g/dl Low HGB 11.0 LAB L100.1400 37-47 % Low HCT 34.4 LAB L100.1500 81-99 fL Normal MCV 87.8 LAB L100.1600 27.0-32.0 pg Normal MCH 28.1 LAB L100.1700 32-36 g/gl Normal MCHC 32.0 LAB L100.1810 11.6-14.6 % Normal RDW CV 14.0 LAB L100.1820 35.1-43.9 fl High RDW SD 44.3 LAB L100.1900 150-450 K/mm3 Normal PLT 368 LAB L100.2000 6.2-12.0 fl Normal MPV 10.9 LAB L100.2100 47-70 % Normal NEUT% 58.6 LAB L100.2200 19-41 % Normal LY% 30.9 LAB L100.2300 0-10 % Normal MONO% 7.8 LAB L100.2400 0-5 % Normal EO% 1.8 LAB L100.2500 0-1 % Normal BASO% 0.6 LAB L100.2550 0.0-0.9 % Normal IM GRAN % 0.300 Result Comment: IG% - Immature Granulocytes (promyelocytes, myelocytes and metamyelocytes) > 1% indicates that a LEFT SHIFT is Present. LAB L100.2620 2.0-7.7 X10 3/uL Normal Absolute Neut 7.1 LAB L100.2720 0.83-4.51 X10 3/ul Normal Absolute Lymph 3.75 Performed By: #### L100.0100 #### [facility] [address] [place], [address] COMPREHENSIVE METABOLIC Collected: 05/28/2018 Status: F Source: [facility] 2:44 PM [facility] REPOSITORY TYPE CODE TESTS RESULT OUT OF RANGE REFERENCE UNITS LAB L501.0100 74-106 mg/dL High GLU 232 Result Comment: Glucose result greater than or equal to 200 mg/dL suggests DIABETES MELLITUS per A.D.A. criteria. Please note revised GLUCOSE reference range effective 2017. LAB L501.1000 7-18 mg/dL Normal BUN 16 LAB L501.1100 0.55-1.02 mg/dL High CREAT,SERUM 1.24 Result Comment: The validity of the calculated GFR AND GFRAA in patients over 70 years has not been determined. Clinical correlation is essential. LAB L501.1110 >60 mL/min Low EST GFR 44 Result Comment: Non- GFR Calc LAB L501.1115 >60 mL/min Low EST GFR - AA 53 Result Comment: GFR Calc LAB L501.1300 10-20 RATIO Normal BUN/CRE 12.9 LAB L501.1500 6.4-8.2 g/dL T Normal PROT 7.2 LAB L501.1800 3.2-5.0 g/dL Normal ALB 3.2 LAB L501.1950 2.2-4.2 g/dL Normal GLOB 4.0 LAB L501.2000 0.9-2.4 RATIO Low A/G 0.8 LAB L501.2200 8.5-10.1 mg/dL CA Normal 9.2 LAB L501.4100 15-37 U/L Low AST 9 LAB L501.4305 45-117 U/L Normal ALK P 72 LAB L501.4405 13-56 U/L Normal ALT 16 LAB L501.4600 0.20-1.00 mg/dL T Normal BILI 0.30 LAB L501.5300 136-145 mmol/L NA Normal 138 LAB L501.5600 3.5-5.1 mmol/L K Normal 3.6 LAB L501.5900 98-107 mmol/L CL Normal 101 LAB L501.6100 21.0-32.0 mmol/L Normal CO2 25.0 LAB L501.6200 5-15 Normal GAP 12 Performed By: #### L500.4050, L501.9520 #### [facility] [address] [place], [address] THYROID STIM HORMONE Collected: 05/28/2018 Status: F Source: GRACE (TSH) 2:44 PM [facility] REPOSITORY TYPE CODE TESTS RESULT OUT OF RANGE REFERENCE UNITS LAB L501.9520 0.358-3.74 uIU/mL Normal TSH 2.00 Performed By: #### L500.4050, L501.9520 #### [facility] [address] [place], [address] SURGERY VISIT REPORT Observed: 05/11/2018 Status: F Source: [place] 10:12 AM [facility] REPOSITORY [facility] [address] [facility] [place] [address] OFFICE VISIT Date of Service: 05/11/18 MR#: [id number] Acct: [id number] Name: ENDER ALVES Rep #: [id number] : 1935 Provider: Raymond Felder MD Age/Sex: 82/F Location: [facility] Status: Signed Intake Intake Visit Reasons: Upper Scope [facility] 04/24 Chief Complaint: Follow-up visit. Long Chain Beamer Required: No Is patient in pain?: No Allergies No Known Allergies Allergy (Verified 05/11/18 08:42) Medications Levothyroxine [Synthroid] 137 mcg PO DAILY 10/13/13 [History Confirmed 05/11/18] Potassium Chloride [Klor-Con 10] 20 meq PO DAILY 10/13/13 [History Confirmed 05/11/18] Nitroglycerin [Nitrostat] 0.4 mg SUBLINGUAL Q5M PRN 12/21/13 [History Confirmed 05/11/18] isosorbide mononitrate ER 30 mg tablet,extended release 24 hr 30 mg PO QAM #90 tab 10/28/17 [Rx Confirmed 05/11/18] ergocalciferol (vitamin D2) 50,000 unit capsule 50,000 unit PO QMONTH 11/18/17 [History Confirmed 05/11/18] atorvastatin 20 mg tablet 40 mg PO QHS tab 11/24/17 [History Confirmed 05/11/18] Amlodipine [Norvasc] 5 mg PO DAILY 03/31/18 [History Confirmed 05/11/18] Glipizide/Metformin HCl [Glipizide-Metformin 2.5-500 mg] 2 ea PO BID 03/31/18 [History Confirmed 05/11/18] Valsartan/Hydrochlorothiazide [Valsartan-Hctz 320-25 mg Tab] 1 ea PO DAILY 03/31/18 [History Confirmed 05/11/18] Ergocalciferol [Vitamin D] 50,000 unit PO Q7D 04/07/18 [History Confirmed 05/11/18] aspirin 81 mg tablet,delayed release 81 mg PO QDAY 04/07/18 [History Confirmed 05/11/18] clopidogrel 75 mg tablet 75 mg PO QDAY 04/07/18 [History Confirmed 05/11/18] Polyethylene Glycol 3350 [Miralax] 17 gm PO DAILY #10 packet 04/08/18 [Rx Confirmed 05/11/18] insulin glargine (U-300) 300 unit/mL (3 mL) subcutaneous pen 20 unit SC QDAY ml 04/08/18 [History Confirmed 05/11/18] Lubiprostone [Amitiza] 24 mcg PO BID 04/22/18 [History Confirmed 05/11/18] Metoprolol(XL)Succ [Toprol Xl (Beta Liana)] 50 mg PO DAILY 04/22/18 [History Confirmed 05/11/18] Pantoprazole Sodium [Protonix] 40 mg PO DAILY 04/22/18 [History Confirmed 05/11/18] Bismuth Subsalicylate [Bismuth] 262 mg PO 4X/DAY #16 g 04/24/18 [Rx Confirmed 05/11/18] lansoprazole 30 mg capsule,delayed release 30 mg PO QDAY #60 cap 05/11/18 [Rx Confirmed 05/11/18] PFSH Medical History GI bleed (Chronic) 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) SVT (supraventricular tachycardia) (Acute) Sepsis (Acute) HLD (hyperlipidemia) (Chronic) TIA (transient ischemic attack) (Chronic) Carotid bruit (Chronic) Hypertension (Chronic) Blood in stool (Acute) Type 2 diabetes mellitus without complications (Acute) Pneumonia (Resolved) Abnormal finding on cardiovascular stress test (Inactive) Surgical History History of coronary artery stent placement (Chronic 12/30/13) H/O coronary artery bypass surgery (Chronic 09/08/92) History bilateral cataract surgery (Acute) History of esophagogastroduodenoscopy (EGD) (Acute 04/24/18) History of hemorrhoidectomy (Acute) History of laparoscopic cholecystectomy (Acute) S/P colonoscopy (Acute 04/24/18) Family History Mother Colon cancer Mother Heart disease Social History Smoking Status: Former smoker alcohol intake: current substance use type: does not use HPI HPI HPI: ENDER ALVES, is a 82 F who presents to the office today for follow-up after EGD. The patient had severe erosive esophagitis. She reports no abdominal pain or heartburn at this time. She has been taking her is bismuth but she has not been taking her PPI. ROS Cardio Cardiovascular: No murmur or pacemaker Resp Respiratory: No shortness of breath Gastro Gastrointestinal: No abdominal pain, No nausea or vomiting Exam Const General: cooperative Orientation: alert, oriented x3 Resp Effort AND Inspection: normal respiratory effort Auscultation: clear to auscultation bilaterally Cardio Rate: regular rate Rhythm: regular rhythm Heart Sounds: no murmurs GI Inspection: non-distended Palpation: soft, nontender Assessment AND Plan Problems 1. Esophagitis determined by endoscopy K20.9 Plan 1. The patient had severe erosive esophagitis on endoscopy. Pathology showed inflammation with ulceration. I have had her on bismuth since the EGD and recommend repeat scope 2 months after her original scope. The patient has not been taking her PPI so I have prescribed her a different one. I think this is essential for her esophagus healing. 2. I will plan for EGD in 6 weeks to ensure healing. Raymond Felder MD Pager: [facility] [address] [place] [address], [address] [place] [address] Office: Medications New: Coding Level of Care Code Off vis,est,level 2 Diagnoses Esophagitis determined by endoscopy K20.9 05/11/18 1012 <Electronically signed by Raymond Felder MD> Date Raymond Felder MD Cosigner Signature: Date (if applicable) CC: Brian Degroot MD Observed: 05/05/2018 Status: F Source: GRACE CULTURE, SPUTUM 11:34 AM [facility] REPOSITORY Gram Stain Acceptable Specimen? Yes (<25 Epithelial cells per/lpf) Gram Stain 1+ Epithelial cells 1+ Gram positive cocci Resp. Culture Mixed normal respiratory eyal. No Haemophilus, Streptococcus pneumoniae, beta-hemolytic Streptococcus or Staphylococcus aureus isolated. ORGANISM 1: Presumptive C albicans Amount Growth 1+ Performed By: #### M100.0800 #### [facility] [address] [facility] [place], [address] CHEST PA AND LATERAL Observed: 05/04/2018 Status: F Source: GRACE 4:13 PM [facility] REPOSITORY [facility] Imaging Services [address] [place] [address] Chest PA and Lateral MR#: [id number] Acct: [id number] Name: ENDER ALVES Rep #: [id number] : 1935 F 82 From: Armando Meredith MD PCP: Brian Degroot MD, Chi Status: REG CLI Study: Chest PA and Lateral Date of Exam: 05/04/18 Exam# [id number] Ordering Dr: Brian Degroot MD STUDY: X-RAY CHEST REASON FOR EXAM: Female, 82 years old. Cough. History of legionnaires disease. TECHNIQUE: Frontal and lateral views of the chest COMPARISON: 04/07/2018 FINDINGS: The previously seen left upper lobe infiltrate has nearly completely resolved. The lungs are otherwise clear. There are no pleural effusions. There is no pneumothorax. The heart is normal in size. Again noted are old, healed right-sided rib fractures. The patient is status post sternotomy. RAD/Chest PA and Lateral IMPRESSION: Near complete resolution of the previously seen left upper lobe opacity. Otherwise, clear lungs. Electronically Signed: Armando Meredith, at 16:46 EDT Tel , Service support , CC: Brian Degroot MD Shift Boss: Signed CBC W/DIFF, AUTOMATED Collected: 05/04/2018 Status: F Source: [place] 3:56 PM [facility] REPOSITORY TYPE CODE TESTS RESULT OUT OF RANGE REFERENCE UNITS LAB L100.1000 4.4-11.0 K/mm3 High WBC 12.1 LAB L100.1200 4.2-5.4 M/mm3 Low RBC 3.85 LAB L100.1300 12.0-15.0 g/dl Low HGB 10.9 LAB L100.1400 37-47 % Low HCT 33.9 LAB L100.1500 81-99 fL Normal MCV 88.1 LAB L100.1600 27.0-32.0 pg Normal MCH 28.3 LAB L100.1700 32-36 g/gl Normal MCHC 32.2 LAB L100.1810 11.6-14.6 % Normal RDW CV 14.1 LAB L100.1820 35.1-43.9 fl High RDW SD 45.1 LAB L100.1900 150-450 K/mm3 Normal PLT 354 LAB L100.2000 6.2-12.0 fl Normal MPV 11.2 LAB L100.2100 47-70 % Normal NEUT% 53.4 LAB L100.2200 19-41 % Normal LY% 35.3 LAB L100.2300 0-10 % Normal MONO% 8.7 LAB L100.2400 0-5 % Normal EO% 1.6 LAB L100.2500 0-1 % Normal BASO% 0.6 LAB L100.2550 0.0-0.9 % Normal IM GRAN % 0.400 Result Comment: IG% - Immature Granulocytes (promyelocytes, myelocytes and metamyelocytes) > 1% indicates that a LEFT SHIFT is Present. LAB L100.2620 2.0-7.7 X10 3/uL Normal Absolute Neut 6.5 LAB L100.2720 0.83-4.51 X10 3/ul Normal Absolute Lymph 4.28 Performed By: #### L100.0100 #### [facility] [address] [place], [address] BASIC METABOLIC Collected: 05/04/2018 Status: F Source: [place] PROFILE ([facility]) 3:56 PM [facility] REPOSITORY TYPE CODE TESTS RESULT OUT OF RANGE REFERENCE UNITS LAB L501.0100 74-106 mg/dL High GLU 151 Result Comment: Fasting Glucose result greater than or equal to 126 mg/dL suggests DIABETES MELLITUS per A.D.A. criteria. Please note revised GLUCOSE reference range effective 2017. LAB L501.1000 7-18 mg/dL High BUN 40 LAB L501.1100 0.55-1.02 mg/dL High CREAT,SERUM 1.47 Result Comment: The validity of the calculated GFR AND GFRAA in patients over 70 years has not been determined. Clinical correlation is essential. LAB L501.1110 >60 mL/min Low EST GFR 36 Result Comment: Non- GFR Calc LAB L501.1115 >60 mL/min Low EST GFR - AA 44 Result Comment: GFR Calc LAB L501.1300 10-20 RATIO High BUN/CRE 27.2 LAB L501.2200 8.5-10.1 mg/dL CA Normal 9.4 LAB L501.5300 136-145 mmol/L NA Normal 141 LAB L501.5600 3.5-5.1 mmol/L Low K 2.9 LAB L501.5900 98-107 mmol/L CL Normal 103 LAB L501.6100 21.0-32.0 mmol/L Normal CO2 29.0 LAB L501.6200 5-15 Normal GAP 9 Performed By: #### L500.2500 #### [facility] [address] [place], [address] Observed: 05/04/2018 Status: F Source: [place] CULTURE, BLOOD (WB) 3:56 PM [facility] REPOSITORY BC No growth in 5 days. Performed By: #### M200.1000 #### [facility] [address] [place], [address] Observed: 05/04/2018 Status: F Source: [place] CULTURE, BLOOD (WB) 3:56 PM [facility] REPOSITORY BC No growth in 5 days. Performed By: #### M200.1000 #### [facility] [address] [place], [address] OPERATIVE REPORT Observed: 04/24/2018 Status: F Source: [place] 11:56 AM [facility] REPOSITORY [facility] Medical Records Department [address] [place] [address] Operative Report 04/24/18 1151 MR#: [id number] Acct: [id number] Name: ENDER ALVES Rep #: [id number] : 1935 82 From: Raymond Felder MD PCP: Zane CORONA,Brian Kowalski Status: REG SDC Y Location: [place] [address] Problem List (1) GI bleed Status: Chronic Qualifiers: GI bleed type/associated pathology: unspecified gastrointestinal hemorrhage type Qualified Code(s): K92.2 - Gastrointestinal hemorrhage, unspecified Report of Operation Date of Procedure: 04/24/18 Pre-Operative Diagnosis: GI bleed with melena Post-Operative Diagnosis: Erosive esophagitis of the distal half of the esophagus. Hiatal hernia. Diverticulosis Surgery/Procedure Performed:: 1. EGD with biopsy. 2. Colonoscopy Specimen's removed: Distal esophagus Description of Procedure: The major risks and benefits associated with the procedure were explained to the patient in detail. The patient verbalized understanding and agreement with the same. The patient was then placed in the left lateral decubitus position. IV sedation was started by anesthesia. The endoscope was then advanced under direct visualization over the tongue, into the esophagus, stomach and duodenum. Upon entry to the esophagus the distal half of the esophagus was very irritated and had erosive esophagitis circumferentially. It was very friable and bled easily. The scope was advanced into the duodenum which was normal. The scope was withdrawn and retroflexed and this revealed a moderate sized hiatal hernia. The scope was straightened and withdrawn. The stomach mucosa was normal. Upon entering the esophagus several cold forceps biopsies were taken. The scope was then withdrawn to the mid and proximal esophagus which were normal. The scope was then withdrawn from the patient. The patient was then turned for the colonoscopy portion of the procedure. A digital rectal exam was performed. This examination was within normal limits. A well- lubricated colonoscope was then inserted into the rectum and advanced under direct visualization to the level of the cecum. The bowel prep was good. The cecum was identified by both visual and anatomic landmarks. A photograph was taken of the end of the cecum. The scope was then fully withdrawn while examining the color, texture, anatomy and integrity of the mucosa from the cecum to the anal canal. The findings were consistent with normal colonic mucosa. The patient did have sigmoid diverticulosis. Upon reaching the rectum the scope was retroflexed to examine the distal rectal vault. The scope was then straightened and was completely retrieved upon exiting the anal canal and the procedure was terminated. The patient was then transferred to the recovery room in stable condition. Recommendations for follow up: Patient will need repeat EGD to ensure healing of the esophagitis but not repeat colonoscopy due to age. I will place the patient on nystatin until we prove that it is not yeast and bismuth as well. 04/24/18 1156 <Electronically signed by Raymond Felder MD> Date Raymond Felder MD CC: Raymond Felder MD; Brian Degroot MD Signed EGD ([facility]) Observed: 04/24/2018 Status: F Source: [place] 11:00 AM [facility] REPOSITORY Patient: ENDER ALVES : 1935 (82/F) Acct Num: [id number] Phys: Bradford CORONA,Raymond Unit Num: [id number] Loc: EN Specimen: [id number] Received: 04/24/18 - 1224 Spec Type: EGD BIOPSY TISSUES TISSUES: Esophagus, NOS COMMENT Alcian blue/PAS stain with matched control is used in the evaluation of the specimen. GROSS DESCRIPTION Received in fixative is one container labeled with the patient's name and designated distal esophagus biopsy. The specimen consists of multiple irregular fragments of light atkinson soft tissue that in aggregate measure 1.5 x 0.3 x 0.1 cm. The specimen is totally submitted in one cassette. / SJ:justice 04/24/18 TC:2 CPT: 22427, 00511, 28770 HEADER OPERATION: [place] [place] PRE-OP DIAGNOSIS: GI bleed TISSUE SUBMITTED: Distal esophagus biopsy MICROSCOPIC DESCRIPTION Slides are reviewed. MICROSCOPIC DIAGNOSIS Distal esophagus, biopsy: Fragments of gastroesophageal mucosa with extensive ulceration, acute inflammation and reactive changes. Special stain for fungi I negative for organisms; matched control is appropriate. Intestinal metaplasia (goblet cell metaplasia) is not identified. See comment. SJ:justice 04/27/18 Signed Seth Dickens 04/27/18 <signature on file> Performed By: #### PEGD #### [facility] [place], [address] BEDSIDE GLUCOSE Collected: 04/24/2018 Status: F Source: [place] 10:20 AM [facility] REPOSITORY TYPE CODE TESTS RESULT OUT OF REFERENCE UNITS RANGE LAB L501.080 70-110 mg/dL High BEDSIDE GLU 153 Result Comment: MANAGEMENT OF PATIENT CARE PER NURSING PROTOCOL Performed By: #### L501.080 #### [facility] Point of Care [address] [place] [address] 12 LEAD ELECTROCARDIOGRAM Observed: 04/09/2018 Status: F Source: [place] 1:58 PM [facility] REPOSITORY [facility] Cardiovascular Services [address] [place] [address] 12 Lead EKG 04/07/18 2141 MR#: [id number] Acct: [id number] Name: ENDER ALVES Rep #: [id number] : 1935 82 From: Robert Bonilla MD Attending Dr: Status: DEP ER Ordering Dr: Owen Cristina MD Date: 04/07/18 Location: ED Sex: F C Admitted: Test Reason : CP Blood Pressure : / mmHG Vent. Rate : 077 BPM Atrial Rate : 077 BPM P-R Int : 124 ms QRS Dur : 094 ms QT Int : 420 ms P-R-T Axes : 000 -25 024 degrees QTc Int : 475 ms Normal sinus rhythm Nonspecific ST abnormality Abnormal ECG Confirmed by ROBERT BONILLA MD ([id number]), video news editor JUANIS PLUNKETT ([id number]) on 04/09/2018 1:58:02 PM Referred By: ANA M Confirmed By:ROBERT BNOILLA MD 04/09/18 1358 Date Robert Bonilla MD CC: Owen Cristina; Brian Degroot MD Signed Observed: 04/08/2018 Status: F Source: [facility] RESPIRATORY PANEL 6:58 PM [facility] MOLECULAR REPOSITORY RP PANEL ADENOVIRUS Not Detected HUMAN METAPHNEUMO Not Detected INFLUENZA A Not Detected INFLUENZA A (SUBTYPE H1) Not Detected INFLUENZA A (SUBTYPE H3) Not Detected INFLUENZA B Not Detected PARAINFLUENZA 1 Not Detected PARAINFLUENZA 2 Not Detected PARAINFLUENZA 3 Not Detected PARAINFLUENZA 4 Not Detected RHINOVIRUS Not Detected RSV A Not Detected RSV B Not Detected NAAT METHOD Testing was performed using nucleic acid amplification Performed By: #### M100.638 #### [facility] [address] [place], [address] CHEST WITH CONTRAST Observed: 04/08/2018 Status: F Source: [facility] 5:49 PM [facility] REPOSITORY [facility] Imaging Services [address] [place] [address] Chest WITH Contrast MR#: [id number] Acct: [id number] Name: ENDER ALVES Rep #: [id number] : 1935 F 82 From: Jose De Jesus Crowell MD PCP: Brian Degroot MD, Chi Status: REG CLI Study: Chest WITH Contrast Date of Exam: 04/08/18 Exam# [id number] Ordering Dr: Brian Degroot MD STUDY: CT CHEST WITH CONTRAST REASON FOR EXAM: Female, 82 years old. Shortness of breath RADIATION DOSAGE (If Supplied By Facility): CTDIvol = ( 13.65 ) mGy, DLP = ( 5679.98 ) mGycm TECHNIQUE: Transaxial imaging was performed following intravenous administration of 75mL ml of Isovue 300 contrast material. Individualized dose optimization techniques were used for this CT. COMPARISON: April 07, 2018 chest x-ray FINDINGS: Left upper lobe airspace disease. Small left effusion. Normal heart and pericardium. Calcific coronary artery disease. Normal mediastinum. Normal hilar regions. Normal enhanced pulmonary arteries. Normal aorta arch and descending thoracic aorta. Moderate kyphosis. Sternotomy. Small hiatal hernia. CT/Chest WITH Contrast IMPRESSION: Lingular airspace disease and small left effusion. Recommend follow-up to resolution. Coronary artery disease/CABG. Electronically Signed: Jose De Jesus Crowell MD at 0:51 EDT , Service support , CC: Brian Degroot MD Shift Boss: Signed CARDIOLOGY VISIT Observed: 04/08/2018 Status: F Source: [facility] REPORT 9:43 AM [facility] REPOSITORY [facility] [address] [place] [address] OFFICE VISIT Date of Service: 04/08/18 MR#: [id number] Acct: [id number] Name: ENDER ALVES Rep #: [id number] : 1935 Provider: Robert Bonilla MD Age/Sex: 82/F Location: [facility] Status: Signed HPI HPI Chief Complaint: Follow-up visit. Details: ENDER ALVES, is a 82 F who presents to the office today for a follow-up visit. She is a lady with a history of coronary artery disease status post carotid bypass surgery in 1991 and previous drug-eluting stent angioplasty to the saphenous vein graft to the second obtuse marginal branch and to the first obtuse marginal branch. She also has a history of hypertension and has previously stopped all her medications. She presented to the emergency third to the emergency room and subsequently to the hospital where she was admitted for Legionella pneumonia. She was subsequently discharged and presented twice to the emergency room for right arm pain and numbness and tingling sensation right hand. Her Plavix had been discontinued because she had concerns about black tarry stools and is scheduled to undergo a GI evaluation with a colonoscopy. She has had no neck arm or jaw discomfort suggest angina no dizziness or diaphoresis no near syncope or syncope. Her evaluation in the emergency room demonstrated sinus rhythm with a rate of [address]-T wave changes troponin and BNP were all noted to be normal. She said that she did have some chest discomfort in the ER but it has abated at this time. She is also had some constipation and was sent home with MiraLAX which she has not obtained yet. Her physical exam today demonstrates clear lung shin regular rate and rhythm and no pedal edema and blood pressure is under excellent control. Intake Vital Signs04/08/18 Height 5 ft 4 in Intake Visit Reasons: DC 7-5 Allergies No Known Allergies Allergy (Verified 04/08/18 09:02) Medications Levothyroxine [Synthroid] 137 mcg PO DAILY 10/13/13 [History Confirmed 04/08/18] Potassium Chloride [Klor-Con 10] 20 meq PO DAILY 10/13/13 [History Confirmed 04/08/18] Nitroglycerin [Nitrostat] 0.4 mg SUBLINGUAL Q5M PRN 12/21/13 [History Confirmed 04/07/18] metoprolol succinate ER 50 mg tablet,extended release 24 hr 50 mg PO DAILY #90 tab 10/14/17 [Rx Confirmed 04/08/18] isosorbide mononitrate ER 30 mg tablet,extended release 24 hr 30 mg PO QAM #90 tab 10/28/17 [Rx Confirmed 04/08/18] ergocalciferol (vitamin D2) 50,000 unit capsule 50,000 unit PO QMONTH 11/18/17 [History Confirmed 04/08/18] atorvastatin 20 mg tablet 40 mg PO QHS tab 11/24/17 [History Confirmed 04/08/18] Amlodipine [Norvasc] 5 mg PO DAILY 03/31/18 [History Confirmed 04/08/18] Glipizide/Metformin HCl [Glipizide-Metformin 2.5-500 mg] 2 ea PO BID 03/31/18 [History Confirmed 04/08/18] Valsartan/Hydrochlorothiazide [Valsartan-Hctz 320-25 mg Tab] 1 ea PO DAILY 03/31/18 [History Confirmed 04/08/18] Pantoprazole Sodium [Protonix] 40 mg PO DAILY #30 tab 04/02/18 [Rx Confirmed 04/07/18] Ergocalciferol [Vitamin D] 50,000 unit PO Q7D 04/07/18 [History Confirmed 04/08/18] aspirin 81 mg tablet,delayed release 81 mg PO QDAY 04/07/18 [History Confirmed 04/08/18] clopidogrel 75 mg tablet 75 mg PO QDAY 04/07/18 [History Confirmed 04/08/18] Levofloxacin [Levaquin] 750 mg PO DAILY #5 tab 04/08/18 [Rx Confirmed 04/08/18] Polyethylene Glycol 3350 [Miralax] 17 gm PO DAILY #10 packet 04/08/18 [Rx] insulin glargine (U-300) 300 unit/mL (3 mL) subcutaneous pen 20 unit SC QDAY ml 04/08/18 [History Confirmed 04/08/18] [facility] Medical History GI bleed (Chronic) 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) SVT (supraventricular tachycardia) (Acute) Sepsis (Acute) HLD (hyperlipidemia) (Chronic) TIA (transient ischemic attack) (Chronic) Carotid bruit (Chronic) Hypertension (Chronic) Blood in stool (Acute) Type 2 diabetes mellitus without complications (Acute) Pneumonia (Resolved) Abnormal finding on cardiovascular stress test (Inactive) Surgical History History of coronary artery stent placement (Chronic 12/30/13) H/O coronary artery bypass surgery (Chronic 09/08/92) History bilateral cataract surgery (Acute) History of hemorrhoidectomy (Acute) History of laparoscopic cholecystectomy (Acute) Family History Mother Colon cancer Mother Heart disease Social History Smoking Status: Former smoker alcohol intake: current substance use type: does not use ROS Const Const: Positive for fatigue and weakness; negative for difficulty sleeping, frequent falls, headache(s) or excessive sweating Eyes Eyes: Negative for loss of peripheral vision, transient loss of vision, blurry vision or double vision ENT ENT: Negative for headache(s), dizziness, Nosebleed/epistaxis or balance problems Cardio Chest Pain: No Edema: Bilateral (BLE ankle edema 1+ pitting) Muscle aches with walking: None Resp Respiratory: Negative for SOB with activity, SOB at rest, SOB orthopnea\SOB lying down or paroxysmal nocturnal dyspnea GI GI: Positive for cramping and constipation; negative nausea or heartburn : Negative for hematuria Musc Musc: Positive for muscle weakness; negative for muscle aches/ myalgia, joint pain or balance problems Skin Skin: Negative non-healing lesions, unusual bruising or rash Neuro Neuro: Positive for weakness and lightheadedness; negative for frequent falls, blurry vision, headache(s), dizziness, orthostatic symptoms or double vision Toney Hematologic/Lymphatic: Negative for easy bruising Endo Endo: Positive for fatigue; negative for excessive sweating or increased thirst/drinking Psych Psych: Negative for anxiety or depression Allergy Allergy/Immunology: Negative for hives, Negative for rash Cardiology Exam Const Appearance: cooperative, healthy appearing, well developed, well groomed and no acute distress Nutritional Appearance: well nourished and average body habitus Orientation: alert, awake and oriented x3 Head Head: normal to inspection, normocephalic and atraumatic Ears: hearing grossly normal bilaterally and external ears normal Nose: external nose normal, nasal mucous membranes and turbinates normal, nares normal, septum normal, no nasal discharge Face and Sinus: face symmetric Mouth: oral mucosae normal, tongue normal, oropharynx normal and moist mucous membranes Teeth and gingiva: dentition normal Throat: posterior oropharynx normal, tonsils normal and uvula midline Eyes General: appearance normal, both eyes and all related structures Eyelids: eyelids normal Conjunctivae: conjunctivae normal Pupils: PERRL, normal by confrontation and accommodation normal EOM: EOM intact bilaterally Neck Neck: normal visual inspection, trachea midline and no JVD JVD: +5 Carotids: normal carotid upstroke and bounding pulses Chest Chest inspection: normal inspection of the chest, symmetric chest movement and normal respiratory effort Auscultation: Bilateral: Clear to Auscultation Cardio Palpation: normal PMI Rate: regular rate Rhythm: regular rhythm Heart sounds: S1 normal, S2 normal and normal, physiologic split S2; negative rub, gallop or murmur GI GI: normal to inspection, soft, no hepatosplenomegaly and bowel sounds present Neuro General: alert, awake, oriented x3, no focal sensory deficit, gait normal and moves all extremities Skin Skin: no rashes or lesions noted Extremities Pulses: Normal: Right Femoral Pulse, Left Femoral Pulse, Right Dorsalis Pedis Pulse, Left Dorsalis Pedis Pulse, Right Posterior Tibial Pulse, Left Posterior Tibial Pulse, Right Radial Pulse, Left Radial Pulse Lower Extremity Edema: None: Bilateral Musculoskel Musculoskeletal: No joint tenderness Psych Psychological: normal affect Assessment AND Plan 1. H/O coronary artery bypass surgery Z95.1 CABG x 3 SVG to D1, SVG-OM AND SVG-RCA Plan She is status post coronary bypass surgery as noted above. I do not think that there is any evidence of angina going on at this time my recommendation would be for her to resume all her medications excluding her Plavix until her GI workup has been reviewed. I have reassured her as well as her daughter but I do not think this is cardiac or coronary in origin. 2. Essential hypertension I10 Plan She does have a history of hypertension but her blood pressure is under excellent control at this time and I would not suggest that we make any changes. 3. History of coronary artery stent placement Z95.5 BQX-PWP-Kslc-Mid OM1 w/ 2.25 x 12 mm Promus Premier 12/30/2013 PSQ-TKA-SRH-Prox-Mid OM2 w/ 3.0 x 23 mm Promus Stent 03/05/2010 GTV-TVP-NML-OM2 w/ Taxus Stent 04/2006 Plan She does have a history of coronary artery stent placement. My recommendation is for her to continue the same medications since his stents are more than a year old we will hold the Plavix until all her workup has been completed. You do remember that she underwent a stress test in 2014 which was mildly abnormal and isosorbide was added to her regimen. Thank you for allowing me to participate in the care of your patient. Please don't hesitate to call if any issues arise Plan Detail Follow Up 6 Months (mmm) Coding Level of Care Code Off vis,est,level 4 Diagnoses H/O coronary artery bypass surgery Z95.1 Essential hypertension I10 History of coronary artery stent placement Z95.5 Coding Level of Care Code Off vis,est,level 4 Diagnoses H/O coronary artery bypass surgery Z95.1 Essential hypertension I10 History of coronary artery stent placement Z95.5 04/08/18 0943 <Electronically signed by Robert Bonilla MD> Date Robert Bonilla MD Cosigner Signature: Date (if applicable) CC: Brian Degroot MD EMERGENCY DEPARTMENT Observed: 04/08/2018 Status: F Source: [facility] SUMMARY 7:17 AM [facility] REPOSITORY [facility] Medical Records Department [address] [place] [address] Emergency Department Summary 04/08/18 0037 MR#: [id number] Acct: [id number] Name: ENDER ALVES Rep #: [id number] : 1935 82 From: Owen Cristina MD PCP: Zane CORONA,Brian Kowalski Status: DEP ER - ER Visit Summary Date of Service: 04/08/18 Chief Complaint: Right-sided arm pain History of Present Illness: The patient is a 82 F presenting for evaluation secondary to right-sided arm pain. Patient was recently admitted to the hospital with pneumonia and was diagnosed as having Legionella pneumonia and sepsis. She was discharged from the hospital last . Patient states she was doing well she finished her course of outpatient antibiotics. Patient reports that today at about 1800 she started to have a feeling of aching in her right arm as well as a tingling sensation in her right hand. She reports that this radiated up into her neck. She reports that it had no exacerbating relieving factors but it was associated with a single episode of nausea and vomiting. Patient reports that she has been undergoing GI workup recently secondary to some black tarry stools saw GI today and was discontinued from taking her Plavix. Patient states actually she has been off of her Plavix for 1 week. She does have an underlying history of coronary artery disease. She denies any prior history of DVT or PE. She denies any significant dyspnea or pain with deep inspiration or hemoptysis. Physical Examination: Elderly female vital signs within normal limits no hypoxia patient does have a minimal amount of tachypnea with a respiratory rate of 27. Well-nourished female no acute distress. No conjunctival pallor no scleral icterus, moist mucous membranes. Neck was supple. Heart was regular rate and rhythm no murmurs. Lungs sounds are clear to auscultation bilaterally with shallow respirations and some tachypnea. Abdomen was soft and nontender. Back was nontender. There is 2+ bilaterally symmetric lower extremity peripheral edema with no asymmetry. No rashes noted. Patient was alert and oriented. Test Results: EKG demonstrates a sinus rate of [address] segments normal T waves, grossly unchanged from prior EKG. CBC demonstrates leukocytosis of 15 stable with patient's prior white blood cell count. Chemistry panel shows stable BUN and creatinine with an elevated glucose 247 troponin and BNP are negative. Chest x-ray performed earlier today shows improving left upper lobe infiltrate. Emergency Department Course and Treatment: Patient presented for evaluation secondary to right arm pain. Patient's arm pain seems rather atypical for cardiac pain as there is no exacerbating relieving factors no other associated factors. Patient's cardiac workup was negative. She does still have a persistent white count and persistent infiltrate, this could be contributing to the patient's discomfort although it seems unlikely. Patient does not have any evidence of hypoxia or any evidence of residual severe sepsis that she would require admission for but she does have persistent infiltrate and white count so I believe that a prolonged course of Levaquin is likely appropriate. Patient was given a first dose in the emergency department will be discharged with this. She was also complaining of some constipation she will be sent home with MiraLAX. Patient's heart score is 4. Disposition: Discharge Impression: 1. Right arm pain 2. Recent Legionella pneumonia This note was generated with [employer] dictation software. It may contain incorrect words, spelling, and punctuation that were not noted in review of the chart prior to signing ED Disposition - Plan for ED Patient: Disposition: Home or Assisted Living Chief Complaint: Chest Pain Diagnosis: Right arm pain Instructions: ED Chest Pain NonCardiac Prescriptions: Levofloxacin [Levaquin] 750 mg PO DAILY #5 tab Polyethylene Glycol 3350 [Miralax] 17 gm PO DAILY #10 packet Referrals: Brian Degroot Chi, MD [Primary Care Provider] - As soon as possible What to do if you have Problems For any increased pain, shortness of breath, bleeding, nausea or vomiting, chest pain, or any unexpected problems, contact your Primary Care Provider. Call [facility] ([phone]) or report to the closest Emergency Room. Call 911 if necessary. 04/08/18 07 <Electronically signed by Owen Cristina MD> Date Owen Cristina MD Cosigner Signature (If Indicated): Date CC: Brian Degroot MD CBC W/DIFF, AUTOMATED Collected: 04/07/2018 Status: C Source: [facility] 10:20 PM [facility] REPOSITORY TYPE CODE TESTS RESULT OUT OF RANGE REFERENCE UNITS LAB L100.1000 4.4-11.0 K/mm3 High WBC 15.7 LAB L100.1200 4.2-5.4 M/mm3 Low RBC 3.79 LAB L100.1300 12.0-15.0 g/dl Low HGB 10.8 LAB L100.1400 37-47 % Low HCT 33.3 LAB L100.1500 81-99 fL Normal MCV 87.9 LAB L100.1600 27.0-32.0 pg Normal MCH 28.5 LAB L100.1700 32-36 g/gl Normal MCHC 32.4 LAB L100.1810 11.6-14.6 % Normal RDW CV 14.0 LAB L100.1820 35.1-43.9 fl High RDW SD 44.0 LAB L100.1900 150-450 K/mm3 High PLT 537 LAB L100.2000 6.2-12.0 fl Normal MPV 9.9 LAB L100.3100 MANUAL DIFF Normal CELLS COUNTED 100 LAB L100.3200 47-70 % 66 Normal SEGS LAB L100.3300 0-5 % 3 Normal BAND LAB L100.3400 0-1 % High 6 META LAB L100.3500 0-0 High 1 MYELO LAB L100.3600 0-0 High 1 PROMYELO LAB L100.3800 19-41 % Low 15 LYMPH LAB L100.3900 0-10 % 8 Normal MONOCYTE LAB L100.9900 Normal PATH REV Reviewed Result Comment: Leukocytosis. Neutrophilic left shift. Normocytic anemia. Thrombocytosis. Clinical correlation necessary. Seth Dickens M.D. 04/08/18 AMENDED REPORT 04/08/18 1550 PATH REV previously reported as: January Performed By: #### L100.0100 #### [facility] [address], [address] BASIC METABOLIC Collected: 04/07/2018 Status: F Source: [place] PROFILE (BMP) 10:20 PM [facility] REPOSITORY TYPE CODE TESTS RESULT OUT OF RANGE REFERENCE UNITS LAB L501.0100 74-106 mg/dL High GLU 247 Result Comment: Glucose result greater than or equal to 200 mg/dL suggests DIABETES MELLITUS per A.D.A. criteria. Please note revised GLUCOSE reference range effective 2017. LAB L501.1000 7-18 mg/dL High BUN 22 LAB L501.1100 0.55-1.02 mg/dL High CREAT,SERUM 1.23 Result Comment: The validity of the calculated GFR AND GFRAA in patients over 70 years has not been determined. Clinical correlation is essential. LAB L501.1110 >60 mL/min Low EST GFR 45 Result Comment: Non- GFR Calc LAB L501.1115 >60 mL/min Low EST GFR - AA 54 Result Comment: GFR Calc LAB L501.1255 ml/min Normal Estimated CRCL 31.50 LAB L501.1300 10-20 RATIO Normal BUN/CRE 17.9 LAB L501.2200 8.5-10 mg/dL Normal .1 CA 8.9 LAB L501.5300 136-14 mmol/L Normal 5 NA 136 LAB L501.5600 3.5-5. mmol/L Normal 1 K 3.6 LAB L501.5900 98-107 mmol/L Normal CL 98 LAB L501.6100 21.0-3 mmol/L Normal 2.0 CO2 26.0 LAB L501.6200 5-15 Normal GAP 12 Performed By: #### L500.2500, L501.4010, L503.6620 #### [facility] [address] [place], [address] TROPONIN-I Collected: 04/07/2018 Status: F Source: [facility] 10:20 PM [facility] REPOSITORY TYPE CODE TESTS RESULT OUT OF RANGE REFERENCE UNITS LAB L501.4010 <0.045 ng/mL Normal < 0.015 TROPONIN-I Result Comment: TROPONIN-I EXPECTED VALUES <0.045 Negative 0.045 - 0.590 Consistent with Cardiac Damage > OR = 0.600 Critical Value Not every elevated troponin is indicative of IA. These values should be used with clinical judgement in examining the patient's clinical picture for diagnosis. To establish a diagnosis of IA versus myocardial injury, there must be a demonstrated rise and/or fall in the troponin values, in addition to ischemic symptoms, EKG changes, new regional wall motion abnormality, and/or angiographical evidence. PLEASE NOTE: REFERENCE RANGES EDITED 18 Performed By: #### L500.2500, L501.4010, L503.6620 #### [facility] [address] [place], [address] BNP,B-TYPE NATRIURETIC Collected: 04/07/2018 Status: F Source: [place] PEPTIDE 10:20 PM [facility] REPOSITORY TYPE CODE TESTS RESULT OUT OF RANGE REFERENCE UNITS LAB L503.6620 0-100 pg/mL Normal B-TYPE 27.5 BRODERICK PEP Performed By: #### L500.2500, L501.4010, L503.6620 #### [facility] [address] [place], [address] SURGERY VISIT REPORT Observed: 04/07/2018 Status: F Source: [place] 2:44 PM [facility] REPOSITORY [facility] 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: No Is patient in pain?: No Allergies No Known Allergies Allergy (Verified 04/07/18 13:20) Medications Levothyroxine [Synthroid] 137 mcg PO DAILY 10/13/13 [History Confirmed 03/31/18] Potassium Chloride [Klor-Con 10] 20 meq PO DAILY 10/13/13 [History Confirmed 03/31/18] Nitroglycerin [Nitrostat] 0.4 mg SUBLINGUAL Q5M PRN 12/21/13 [History Confirmed 03/31/18] metoprolol succinate ER 50 mg tablet,extended release 24 hr 50 mg PO DAILY #90 tab 10/14/17 [Rx Confirmed 03/31/18] isosorbide mononitrate ER 30 mg tablet,extended release 24 hr 30 mg PO QAM #90 tab 10/28/17 [Rx Confirmed 03/31/18] ergocalciferol (vitamin D2) 50,000 unit capsule 50,000 unit PO QMONTH 11/18/17 [History Confirmed 03/31/18] atorvastatin 20 mg tablet 40 mg PO QHS tab 11/24/17 [History Confirmed 03/31/18] Acetaminophen [Tylenol] 1,000 mg PO TID 03/31/18 [History Confirmed 03/31/18] Amlodipine [Norvasc] 5 mg PO DAILY 03/31/18 [History Confirmed 03/31/18] Baclofen [Lioresal] 10 mg PO QHS 03/31/18 [History Confirmed 03/31/18] Glipizide/Metformin HCl [Glipizide-Metformin 2.5-500 mg] 2 ea PO BID 03/31/18 [History Confirmed 03/31/18] Insulin Glargine,Hum.rec.anlog [Toumitzyo Solostar] 27 unit SQ QHS 03/31/18 [History Confirmed 03/31/18] Lubiprostone [Amitiza] 24 mcg PO BID 03/31/18 [History Confirmed 03/31/18] Prednisone 30 mg PO DAILY 03/31/18 [History Confirmed 03/31/18] Valsartan/Hydrochlorothiazide [Valsartan-Hctz 320-25 mg Tab] 1 ea PO DAILY 03/31/18 [History Confirmed 03/31/18] Levofloxacin [Levaquin] 750 mg PO DAILY #5 tab 04/02/18 [Rx] Pantoprazole Sodium [Protonix] 40 mg PO DAILY #30 tab 04/02/18 [Rx] PFSH Medical History 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) Abnormal finding on cardiovascular stress test (Chronic) COPD (chronic obstructive pulmonary disease) (Chronic) CAD (coronary artery disease) (Chronic) HLD (hyperlipidemia) (Chronic) TIA (transient ischemic attack) (Chronic) Carotid bruit (Chronic) Coronary atherosclerosis of [place] coronary artery (Chronic) Hypertension (Chronic) Blood in stool (Acute) Diabetes (Acute) Pneumonia (Acute) SVT (supraventricular tachycardia) (Acute) Sepsis (Acute) Surgical History History of percutaneous transluminal coronary angioplasty (Chronic) Aortocoronary bypass status (Chronic) History bilateral cataract surgery (Acute) History of hemorrhoidectomy (Acute) History of laparoscopic cholecystectomy (Acute) Family History Mother Colon cancer Mother Heart disease Social History Smoking Status: Former smoker alcohol intake: current substance use type: does not use HPI HPI HPI: ENDER ALVES, is a 82 F who presents to the office today for GI bleed. The patient was recently admitted with pneumonia and during admission the patient had positive fecal occult blood test. The patient reports that before going into the hospital she was having black diarrhea which turned in the normal diarrhea. She says the diarrhea has resolved. She is having no abdominal pain. She is currently holding her aspirin and Plavix due to the GI bleeding. She says currently she is having no gross blood in her stool and no nausea or vomiting. She does have bloating after meals. ROS General General: Yes fatigue; no weight change, appetite, colon cancer, breast cancer or weakness HEENT HEENT: Yes eye surgery; no difficulty swallowing, eye injury, swollen glands or hoarseness Endo Endocrine: Yes diabetes mellitus; no thyroid disease, thyroid cancer, Hair loss, heat intolerance or cold intolerance Skin Skin: No rash or changing moles Breast Breast: No left breast lump, right breast lump, nipple discharge, breast pain, abnormal mammogram, abnormal US or breast enlargement Musc Musculoskeletal: No back problems, arthritis, rheumatoid arthritis, gout or joint pain Cardio Cardiovascular: Yes heart disease and heart stent; no pacemaker, atrial fibrillation, high blood pressure, heart attack, palpitations, shortness of breat with exertion or chest pain Psych Psychiatric: No depression, anxiety or hearing voices Resp Respiratory: No shortness of breath, No sleep apnea, No cough, No COPD, No asthma, No emphysema, No wheezing Gastro Gastrointestinal: No abdominal pain, No nausea or vomiting, Yes diarrhea, No constipation, Yes blood in stool, Yes acid reflux, Yes hemorrhoids, No ulcers, No gallbladder problem, Yes black,tarry stools Toney Hematologic: Yes blood thinners, No blood disorders, No bleeding, No anemia, No blood clots Neuro Neurologic: No system reviewed and no additional complaints, except as docu, No as per HPI, No abnormal walking, No abnormal hearing, No abnormal movements, No abnormal speech, No behavioral changes, No burning sensations, No confusion, No seizure-like activity, No unsteadiness, No dizziness, No localized weakness, No frequent falls, No headache(s), No lack of coordination, No loss of vision, No memory loss, No numbness, No other visual disturbances, No radiating pain, No restless legs, No sensory deficit, No fainting, No tingling, No tremor(s), No weakness, No other Exam Const General: cooperative Orientation: alert, oriented x3 Chest Chest palpation AND inspection: normal inspection of the chest Breast Palpation: No nipple discharge Resp Effort AND Inspection: normal respiratory effort Auscultation: clear to auscultation bilaterally Cardio Rate: regular rate Rhythm: regular rhythm GI Inspection: non-distended Palpation: soft, nontender Neuro Cranial Nerves: CN's II-XI intact bilaterally Assessment AND Plan Problems 1. Gastrointestinal hemorrhage with melena K92.1 Plan 1. The patient has a family history of colon cancer and had a colonoscopy 5 years ago. The patient was having melena which has resolved since stopping anticoagulation. The patient was also having diarrhea which seemed to have resolved. I do recommend the patient have EGD and colonoscopy to ensure there is not a malignancy that is bleeding. 2. I explained endoscopy in detail to the patient. I explained the risks including but not limited to stroke or heart attack with anesthesia, perforation of the GI tract, bleeding, infection. I explained that any of these could necessitate further emergency surgery. The patient understands and all questions were answered sufficiently. The patient wishes to proceed with procedure. 3. The patient is currently holding her aspirin or Plavix. We will likely not be able to get the patient in for scope for another 2 weeks due to my schedule so I would recommend that the patient resume aspirin and Plavix until scope and stop it 5 days before the procedure. If she develops GI bleeding when she resumes her anticoagulation I recommend it be stopped again. I also recommended that the patient not take her oral diabetic medication the day of the procedure. Raymond Felder MD Pager: [facility] [address] [place] [address], [address] [place] [address] Office: Orders Orders: Coding Level of Care Code Off vis,new,level 3 Diagnoses Gastrointestinal hemorrhage with melena K92.1 GI bleed type/associated pathology: melena 04/07/18 1444 <Electronically signed by Raymond Felder MD> Date Raymond Felder MD Cosigner Signature: Date (if applicable) CC: Robert Bonilla MD; Brian Degroot MD CHEST PA AND LATERAL Observed: 04/07/2018 Status: F Source: [place] 12:05 PM [facility] REPOSITORY [facility] Imaging Services [address] [place] [address] Chest PA and Lateral MR#: [id number] Acct: [id number] Name: ENDER ALVES Rep #: [id number] : 1935 F 82 From: Sulaiman Braswell DO PCP: Brian Degroot MD, Chi Status: REG CLI Study: Chest PA and Lateral Date of Exam: 04/07/18 Exam# [id number] Ordering Dr: Brian Degroot MD STUDY: X-RAY CHEST REASON FOR EXAM: Female, 82 years old. Chondroclinosis TECHNIQUE: PA and lateral views of the chest. COMPARISON: January 01, 2018 FINDINGS: There is hyperinflation of the lungs consistent with chronic obstructive lung disease (COPD). Patchy airspace disease in the left upper lobe suggest infection. There is a nodular component measuring 2.2 cm. Sternal cerclage wires are present from a prior sternotomy. Mild cardiomegaly. Normal mediastinum and norma. Normal visualized pulmonary arteries. Normal visualized aortic arch and descending thoracic aorta. There are diffuse degenerative changes of the visualized thoracic spine. There is degenerative osteoarthritis of the bilateral shoulders. There is no demonstrated abnormality of the visualized soft tissue structures of the upper abdomen. RAD/Chest PA and Lateral IMPRESSION: COPD with left upper lobe infiltrate and nodular component. Recommend CT chest to further evaluate Electronically Signed: Sulaiman Braswell DO at 16:59 EDT Tel , Service support , CC: Brian Degroot MD Shift Boss: Signed ABD INC DECUB Observed: 04/07/2018 Status: F Source: [place] AND/OR ERECT 12:05 PM [facility] REPOSITORY [facility] Imaging Services [address] [place] [address] Abd Inc Decub and/or Erect MR#: [id number] Acct: [id number] Name: ENDER ALVES Rep #: [id number] : 1935 F 82 From: Noe Ortiz MD PCP: Brian Degroot MD, Chi Status: REG CLI Study: Abd Inc Decub and/or Erect Date of Exam: 04/07/18 Exam# [id number] Ordering Dr: Brian Degroot MD STUDY: X-RAY - ABDOMEN/PELVIS REASON FOR EXAM: Female, 82 years old. Pain TECHNIQUE: AP supine and upright views of the abdomen and pelvis. COMPARISON: None. FINDINGS: Normal visualized lung bases. There is an unremarkable bowel gas pattern. There is no demonstrated free abdominal air. The visualized liver, spleen and kidneys are grossly normal in size and morphology. Normal soft tissue structures. Normal visualized osseous structures. Cholecystectomy clips. RAD/Abd Inc Decub and/or Erect IMPRESSION: Normal bowel gas pattern. Electronically Signed: Noe Ortiz MD at 23:01 EDT Tel , Service support , CC: Brian Degroot MD Shift Boss: Signed CBC W/DIFF, AUTOMATED Collected: 04/07/2018 Status: C Source: [place] 11:55 AM [facility] REPOSITORY TYPE CODE TESTS RESULT OUT OF RANGE REFERENCE UNITS LAB L100.1000 4.4-11.0 K/mm3 High WBC 15.9 LAB L100.1200 4.2-5.4 M/mm3 Low RBC 3.98 LAB L100.1300 12.0-15.0 g/dl Low HGB 11.5 LAB L100.1400 37-47 % Low HCT 34.8 LAB L100.1500 81-99 fL Normal MCV 87.4 LAB L100.1600 27.0-32.0 pg Normal MCH 28.9 LAB L100.1700 32-36 g/gl Normal MCHC 33.0 LAB L100.1810 11.6-14.6 % Normal RDW CV 14.1 LAB L100.1820 35.1-43.9 fl High RDW SD 44.9 LAB L100.1900 150-450 K/mm3 High PLT 576 LAB L100.2000 6.2-12.0 fl Normal MPV 10.0 LAB L100.3100 MANUAL DIFF Normal CELLS COUNTED 100 LAB L100.3200 47-70 % High 85 SEGS LAB L100.3300 0-5 % 1 Normal BAND LAB L100.3400 0-1 % High 2 META LAB L100.3800 19-41 % Low 10 LYMPH LAB L100.3900 0-10 % 2 Normal MONOCYTE LAB L100.5500 ADEQ Normal PLT EST ADEQUATE LAB L100.7000 NORM C AND C NORMAL Normal RED CELL MORPH NORM C+C LAB L100.2620 2.0-7.7 X10 3/uL High Absolute Neut 13.7 LAB L100.2720 0.83-4.51 X10 3/ul Normal Absolute Lymph 1.60 LAB L100.9900 Normal PATH REV Reviewed Result Comment: Neutrophilic leukocytosis with left shift. Thrombocytosis. Clinical correlation necessary. Seth Dickens M.D. 04/07/18 AMENDED REPORT 04/07/18 1612 PATH REV previously reported as: January nolan Performed By: #### L100.0100 #### [facility] [address] [place], [address] 12 LEAD ELECTROCARDIOGRAM Observed: 04/02/2018 Status: F Source: [place] 2:13 PM [facility] REPOSITORY [facility] Cardiovascular Services [address] [place] [address] 12 Lead EKG 03/31/18 0712 MR#: [id number] Acct: [id number] Name: ENDER ALVES Rep #: [id number] : 1935 82 From: Robert Bonilla MD Attending Dr: Catrachito Oden MD Status: ADM IN Ordering Dr: Marito Hutson MD Date: 03/31/18 Location: [facility] Sex: F C Admitted: 03/31/18 Test Reason : SOB Blood Pressure : / mmHG Vent. Rate : 107 BPM Atrial Rate : 107 BPM P-R Int : 132 ms QRS Dur : 106 ms QT Int : 356 ms P-R-T Axes : 043 -36 030 degrees QTc Int : 475 ms Sinus tachycardia Left axis deviation Inferior infarct , age undetermined Abnormal ECG Confirmed by IRENE CORONA, ROBERT ([id number]), video news editor JUANIS PLUNKETT ([id number]) on 04/02/2018 2:13:01 PM Referred By: MERYL Confirmed By:ROBERT BONILLA MD 04/02/18 1413 Date Robert Bonilla MD CC: Catrachito Oden MD; Marito Hutson MD; Brian Degroot MD Signed 12 LEAD ELECTROCARDIOGRAM Observed: 04/02/2018 Status: F Source: [place] 2:12 PM [facility] REPOSITORY [facility] Cardiovascular Services [address] [place] [address] 12 Lead EKG 03/31/18 0756 MR#: [id number] Acct: [id number] Name: ENDER ALVES Rep #: [id number] : 1935 82 From: Robert Bonilla MD Attending Dr: Catrachito Oden MD Status: ADM IN Ordering Dr: Marito Hutson MD Date: 03/31/18 Location: [facility] Sex: F C Admitted: 03/31/18 Test Reason : REPEAT Blood Pressure : / mmHG Vent. Rate : 094 BPM Atrial Rate : 094 BPM P-R Int : 132 ms QRS Dur : 106 ms QT Int : 376 ms P-R-T Axes : 040 -26 047 degrees QTc Int : 470 ms Normal sinus rhythm Inferior infarct , age undetermined Abnormal ECG Confirmed by ROBERT BONILLA MD ([id number]), video news editor JUANIS PLUNKETT ([id number]) on 04/02/2018 2:12:36 PM Referred By: MERYL Confirmed By:ROBERT BONILLA MD 04/02/18 1412 Date Robert Bonilla MD CC: Catrachito Oden MD; Marito Hutson MD; Brian Degroot MD Signed DISCHARGE SUMMARY Observed: 04/02/2018 Status: F Source: [place] 1:12 PM [facility] REPOSITORY [facility] Medical Records Department [address] [place] [address] Discharge Summary 04/02/18 1239 MR#: [id number] Acct: [id number] Name: ENDER ALVES Rep #: [id number] : 1935 82 From: Lillian Dobson LENO SEWER-C PCP: Brian Degroot MD, Chi Status: ADM IN Y [id number] <Lillian Dobson - Last Filed: 04/02/18 12:51> Discharge Date and Diagnosis Date of Admission: 03/31/18 Date of Discharge: 04/02/18 - Primary Discharge Diagnosis Active and Suspected Problems (Last Reviewed 03/31/18 @ 13:40 by Kel Romo DO) 1. Acute sepsis secondary to left-sided community-acquired pneumonia 2. SVT secondary to sepsis-resolved without intervention 3. Mild dehydration 4. Acute metabolic encephalopathy secondary to #1 5. Mild normochromic normocytic anemia with stool positive for occult blood - Secondary Discharge Diagnosis Chronic Problems (Last Reviewed 03/31/18 @ 13:40 by Kel Romo DO) DM2 (diabetes mellitus, type 2) (Chronic) CAD (coronary artery disease) (Chronic) HLD (hyperlipidemia) (Chronic) TIA (transient ischemic attack) (Chronic) History of percutaneous transluminal coronary angioplasty (Chronic) PTCA with Taxus stent to SVG to OM, 2005 - 03/05/10 PTCA/stent (JESSICA) to proximal to mod SVG to 2nd obtuse marginal artery - Successful angioplasty AND Promus [place] of [place] OM PCI @ [facility] stent SVG-OM 01/10 Aortocoronary bypass status (Chronic) CABG SVG to DG, OM AND RCA Carotid bruit (Chronic) Coronary atherosclerosis of [place] coronary artery (Chronic) Hypertension (Chronic) Hospital Course and Treatment Imaging Results: Diagnostic Data Chest X-Ray 03/31/18 07:37 IMPRESSION: Left pulmonary infiltrates with blunting of the left costophrenic angle. Radiographic follow-up is recommended. Electronically Signed: Farzad Banks MD at 7:57 EDT Tel [phone], Service support , Operations: None Procedures: None Summary of Care Provided: The patient is a 82 year old F admitted 03/31/2018 due to diarrhea. She has a past medical history of hypertension, CAD status post CABG and PTCA, TIA, hyperlipidemia, type 2 diabetes mellitus, chronic kidney disease. Stool negative for C. difficile. Patient has not had further diarrhea. Patient was noted to have occult blood positive stool. Her hemoglobin has remained stable and she did not require transfusion. She was started on Protonix 40 mg daily which she will continue at discharge. Follow-up with surgery as outpatient for further evaluation. Her aspirin and Plavix was held and she was instructed to continue to hold at discharge until further notified. Patient was found to have acute sepsis secondary to left-sided community-acquired pneumonia with positive Legionella antigen. Patient treated with IV Levaquin and will continue oral Levaquin 750 mg daily for 5 more days. Oxygen is now stable on room air. Acute metabolic encephalopathy secondary to sepsis resolved. Patient found to have transient episodes of SVT, suspected secondary to sepsis. Patient follows with Dr. Bonilla. She will continue home beta-liana regimen. Mild dehydration resolved with IV fluids. Other chronic medical conditions as noted above are stable at this time. Patient is stable for discharge home with further follow-up with primary care physician, cardiology, nephrology and surgery. Patient seen exam prior to discharge. Alert, oriented, no acute distress. Lungs clear, diminished. Heart rate regular in rate, no murmurs. Abdomen soft, nontender. No edema. Skin intact. Neuro grossly intact. Vital signs stable. This patient was seen by PORFIRIO Liu under the supervision of Dr. Oden. Discharge Diet: Carb Control Diet Discharge Activity: Return to Normal Activity Call your doctor if you observe: Shortness of breath, Dizziness, Fainting spells, Chest pain Home Medications: Medications to take at Discharge Levothyroxine [Synthroid] 137 mcg PO DAILY 10/13/13 Potassium Chloride [Klor-Con 10] 20 meq PO DAILY 10/13/13 Nitroglycerin [Nitrostat] 0.4 mg SUBLINGUAL Q5M PRN 12/21/13 metoprolol succinate ER 50 mg tablet,extended release 24 hr 50 mg PO DAILY #90 tab 10/14/17 isosorbide mononitrate ER 30 mg tablet,extended release 24 hr 30 mg PO QAM #90 tab 10/28/17 ergocalciferol (vitamin D2) 50,000 unit capsule 50,000 unit PO QMONTH 11/18/17 atorvastatin 20 mg tablet 40 mg PO QHS tab 11/24/17 Acetaminophen [Tylenol] 1,000 mg PO TID 03/31/18 Amlodipine [Norvasc] 5 mg PO DAILY 03/31/18 Baclofen [Lioresal] 10 mg PO QHS 03/31/18 Glipizide/Metformin HCl [Glipizide-Metformin 2.5-500 mg] 2 each PO BID 03/31/18 Insulin Glargine,Hum.rec.anlog [Toujeo Solostar] 27 unit SQ QHS 03/31/18 Lubiprostone [Amitiza] 24 mcg PO BID 03/31/18 Prednisone 30 mg PO DAILY 03/31/18 Valsartan/Hydrochlorothiazide [Valsartan-Hctz 320-25 mg Tab] 1 each PO DAILY 03/31/18 Levofloxacin [Levaquin] 750 mg PO DAILY #5 tab 04/02/18 Pantoprazole Sodium [Protonix] 40 mg PO DAILY #30 tab 04/02/18 Following Prescrptions Were Given to Patient: Levofloxacin [Levaquin] 750 mg PO DAILY #5 tab Pantoprazole Sodium [Protonix] 40 mg PO DAILY #30 tab Primary Care Physician: Brian Degroot Chi, MD [Primary Care Provider] - Please follow up with your Primary Care Physician in: 1 Week Please Follow Up With: Robert Bonilla MD When: 1 Week Please Follow Up With: Erendira Palacios DO When: As scheduled Please Follow Up With: Raymond Felder MD - [phone] When: 1 Week Disposition: Home Minutes spent on discharge:: 35 Patient Condition:: Stable Medical Necessity - Tobacco Use Smoking Status: Former smoker Tobacco Use: Non-smoker Meaningful Use Info Meaningful Use Diagnoses (Choose all that apply): None applicable <Catrachito Oden - Last Filed: 04/02/18 13:12> Discharge Date and Diagnosis - Secondary Discharge Diagnosis Chronic Problems (Last Reviewed 03/31/18 @ 13:40 by Kel Romo DO) DM2 (diabetes mellitus, type 2) (Chronic) CAD (coronary artery disease) (Chronic) HLD (hyperlipidemia) (Chronic) TIA (transient ischemic attack) (Chronic) History of percutaneous transluminal coronary angioplasty (Chronic) PTCA with Taxus stent to SVG to OM, 2005 - 03/05/10 PTCA/stent ([place]) to proximal to mod SVG to 2nd obtuse marginal artery - Successful angioplasty AND Promus [place] of [place] OM PCI @ [facility] stent SVG-OM 01/10 Aortocoronary bypass status (Chronic) CABG SVG to DG, OM AND RCA Carotid bruit (Chronic) Coronary atherosclerosis of [place] coronary artery (Chronic) Hypertension (Chronic) Hospital Course and Treatment Summary of Care Provided: In brief, patient is an 82-year-old lady admitted with progressive shortness of breath and assessment of pneumonia secondary to Legionella made admitted to a monitored bed where patient has since been managed Assessment: 1. Sepsis secondary to pneumonia due to Legionella 2. SVT 3. Dehydration 4. Diarrhea 5. Acute infectious encephalopathy 6. Diabetes mellitus type 2 7. CAD with previous CABG and subsequent stent placement 8. Hypertension 9. Hypothyroidism next para 10. DVT prophylaxis SCDs for now held off with chemoprophylaxis in view of patient melenic stools Hospital course; elicited above by Lillian Dobson NPC Code Visit Inpatient E AND M: [id number] Disch Hosp 04/02/18 1251 <Electronically signed by Lillian Dobson LENO SEWER-C> Date Lillian Dobson LENO SEWER-C 04/02/18 1312<Electronically signed by Catrachito Oden MD> Cosigner Signature (if applicable): Date Catrachito Oden MD CC: LENO SEWER-C Lillian Dobson; Catrachito Oden MD; Brian Degroot MD Signed DISCHARGE INSTRUCTION Observed: 04/02/2018 Status: F Source: [place] 12:52 PM [facility] REPOSITORY [facility] Medical Records Department [address] [place] [address] Instructions for Home/Discharge Instructions 04/02/18 1224 MR#: [id number] Acct: [id number] Name: ENDER ALVES Rep #: [id number] : 1935 82 From: Lillian Dobson LENO SEWER-C PCP: Zane CORONA,Brian Kowalski Status: ADM IN - Discharge Diagnoses Current Active Problems: Current Active and Chronic Problems (Last Reviewed 03/31/18 @ 13:40 by Kel Romo DO) DM2 (diabetes mellitus, type 2) (Chronic) Pneumonia (Acute) SVT (supraventricular tachycardia) (Acute) Sepsis (Acute) You will use the following diet at home:: Calorie/Carbohydrate Controlled (specify 1200, 1400, etc), Cardiac Discharge Activity: Return to Normal Activity Call your doctor if you observe: Shortness of breath, Dizziness, Fainting spells, Chest pain Additional Instructions: You will stop taking your aspirin and Plavix until further evaluated as outpatient. You were referred to Dr. Felder for futher evaluation of blood in stool. Please call to make an appointment. You can call to schedule [phone]. Allergies/Adverse Reactions: Allergies No Known Allergies Allergy (Verified 03/31/18 07:21) Medications to take at Discharge Levothyroxine [Synthroid] 137 mcg PO DAILY 10/13/13 Potassium Chloride [Klor-Con 10] 20 meq PO DAILY 10/13/13 Nitroglycerin [Nitrostat] 0.4 mg SUBLINGUAL Q5M PRN 12/21/13 metoprolol succinate ER 50 mg tablet,extended release 24 hr 50 mg PO DAILY #90 tab 10/14/17 isosorbide mononitrate ER 30 mg tablet,extended release 24 hr 30 mg PO QAM #90 tab 10/28/17 ergocalciferol (vitamin D2) 50,000 unit capsule 50,000 unit PO QMONTH 11/18/17 atorvastatin 20 mg tablet 40 mg PO QHS tab 11/24/17 Acetaminophen [Tylenol] 1,000 mg PO TID 03/31/18 Amlodipine [Norvasc] 5 mg PO DAILY 03/31/18 Baclofen [Lioresal] 10 mg PO QHS 03/31/18 Glipizide/Metformin HCl [Glipizide-Metformin 2.5-500 mg] 2 each PO BID 03/31/18 Insulin Glargine,Hum.rec.anlog [Toujeo Solostar] 27 unit SQ QHS 03/31/18 Lubiprostone [Amitiza] 24 mcg PO BID 03/31/18 Prednisone 30 mg PO DAILY 03/31/18 Valsartan/Hydrochlorothiazide [Valsartan-Hctz 320-25 mg Tab] 1 each PO DAILY 03/31/18 Levofloxacin [Levaquin] 750 mg PO DAILY #5 tab 04/02/18 Pantoprazole Sodium [Protonix] 40 mg PO DAILY #30 tab 04/02/18 The following prescriptions were given: Levofloxacin [Levaquin] 750 mg PO DAILY #5 tab Pantoprazole Sodium [Protonix] 40 mg PO DAILY #30 tab Primary Care Physician: Brian Degroot Chi, MD [Primary Care Provider] - Please follow up with your Primary Care Physician in: 1 Week Test Results: Please Follow Up With: Robert Bonilla MD When: 1 Week Please Follow Up With: Erendira Palacios DO When: As scheduled Please Follow Up With: Raymond Felder MD Proposed Discharge Date: 04/02/18 04/02/18 1252 <Electronically signed by Lillian Dobson NP-C> Date Lillian GILLETTEC CC: Brian Degroot MD BEDSIDE GLUCOSE Collected: 04/02/2018 Status: F Source: [place] 11:23 AM [facility] REPOSITORY TYPE CODE TESTS RESULT OUT OF REFERENCE UNITS RANGE LAB L501.080 70-110 mg/dL High BEDSIDE GLU 197 Result Comment: MANAGEMENT OF PATIENT CARE PER NURSING PROTOCOL Performed By: #### L501.080 #### [facility] Point of Care [address] [place], [place] [address] BEDSIDE GLUCOSE Collected: 04/02/2018 Status: F Source: [place] 6:56 AM [facility] REPOSITORY TYPE CODE TESTS RESULT OUT OF REFERENCE UNITS RANGE LAB L501.080 70-110 mg/dL High BEDSIDE GLU 117 Result Comment: MANAGEMENT OF PATIENT CARE PER NURSING PROTOCOL Performed By: #### L501.080 #### [facility] Point of Care [address] [place] [address] CBC W/DIFF, AUTOMATED Collected: 04/02/2018 Status: F Source: [place] 5:15 AM [facility] REPOSITORY TYPE CODE TESTS RESULT OUT OF RANGE REFERENCE UNITS LAB L100.1000 4.4-11.0 K/mm3 High WBC 11.9 LAB L100.1200 4.2-5.4 M/mm3 Low RBC 3.53 LAB L100.1300 12.0-15.0 g/dl Low HGB 10.1 LAB L100.1400 37-47 % Low HCT 30.7 LAB L100.1500 81-99 fL Normal MCV 87.0 LAB L100.1600 27.0-32.0 pg Normal MCH 28.6 LAB L100.1700 32-36 g/gl Normal MCHC 32.9 LAB L100.1810 11.6-14.6 % Normal RDW CV 13.9 LAB L100.1820 35.1-43.9 fl Normal RDW SD 42.9 LAB L100.1900 150-450 K/mm3 Normal PLT 307 LAB L100.2000 6.2-12.0 fl Normal MPV 10.6 LAB L100.2100 47-70 % High NEUT% 84.3 LAB L100.2200 19-41 % Low LY% 5.8 LAB L100.2300 0-10 % Normal MONO% 8.3 LAB L100.2400 0-5 % Normal EO% 0.0 LAB L100.2500 0-1 % Normal BASO% 0.3 LAB L100.2550 0.0-0.9 % High IM GRAN % 1.300 Result Comment: IG% - Immature Granulocytes (promyelocytes, myelocytes and metamyelocytes) > 1% indicates that a LEFT SHIFT is Present. LAB L100.2620 2.0-7.7 X10 3/uL High Absolute Neut 10.0 LAB L100.2720 0.83-4.51 X10 3/ul Low Absolute Lymph 0.69 Performed By: #### L100.0100 #### [facility] [address] [place], [address] BASIC METABOLIC Collected: 04/02/2018 Status: F Source: [place] PROFILE (BMP) 5:15 AM [facility] REPOSITORY TYPE CODE TESTS RESULT OUT OF RANGE REFERENCE UNITS LAB L501.0100 74-106 mg/dL High GLU 125 Result Comment: Fasting Glucose result from 100 to 125 mg/dL suggests IMPAIRED HOMEOSTASIS per A.D.A. criteria. Please note revised GLUCOSE reference range effective 2017. LAB L501.1000 7-18 mg/dL High BUN 22 LAB L501.1100 0.55-1.02 mg/dL Normal CREAT,SERUM 0.92 Result Comment: The validity of the calculated GFR AND GFRAA in patients over 70 years has not been determined. Clinical correlation is essential. LAB L501.1110 >60 mL/min Normal EST GFR 62 Result Comment: Non- GFR Calc LAB L501.1115 >60 mL/min Normal EST GFR - AA 75 Result Comment: GFR Calc LAB L501.1255 ml/min Normal Estimated CRCL 42.12 LAB L501.1300 10-20 RATIO High BUN/CRE 23.8 LAB L501.2200 8.5-10 mg/dL Low .1 CA 7.6 LAB L501.5300 136-14 mmol/L Normal 5 NA 137 LAB L501.5600 3.5-5. mmol/L Normal 1 K 3.6 LAB L501.5900 98-107 mmol/L Normal CL 107 LAB L501.6100 21.0-3 mmol/L Normal 2.0 CO2 21.0 LAB L501.6200 5-15 Normal GAP 9 Performed By: #### L500.2500, L501.5200 #### [facility] [address] [place], [address] MAGNESIUM Collected: 04/02/2018 Status: F Source: [place] 5:15 AM [facility] REPOSITORY TYPE CODE TESTS RESULT OUT OF RANGE REFERENCE UNITS LAB L501.5200 1.6-2.6 mg/dL Normal MG 1.9 Performed By: #### L500.2500, L501.5200 #### [facility] [address] [facility] [address] BEDSIDE GLUCOSE Collected: 04/01/2018 Status: F Source: [place] 10:19 PM [facility] REPOSITORY TYPE CODE TESTS RESULT OUT OF REFERENCE UNITS RANGE LAB L501.080 70-110 mg/dL High BEDSIDE GLU 205 Result Comment: MANAGEMENT OF PATIENT CARE PER NURSING PROTOCOL Performed By: #### L501.080 #### [facility] Point of Care [address] [place] [address] BEDSIDE GLUCOSE Collected: 04/01/2018 Status: F Source: [place] 4:02 PM [facility] REPOSITORY TYPE CODE TESTS RESULT OUT OF REFERENCE UNITS RANGE LAB L501.080 70-110 mg/dL High BEDSIDE GLU 145 Result Comment: MANAGEMENT OF PATIENT CARE PER NURSING PROTOCOL Performed By: #### L501.080 #### [facility] Point of Care [address] [place] [address] BEDSIDE GLUCOSE Collected: 04/01/2018 Status: F Source: [place] 11:58 AM [facility] REPOSITORY TYPE CODE TESTS RESULT OUT OF REFERENCE UNITS RANGE LAB L501.080 70-110 mg/dL High BEDSIDE GLU 175 Result Comment: MANAGEMENT OF PATIENT CARE PER NURSING PROTOCOL Performed By: #### L501.080 #### [facility] Point of Care [address] [place] [address] BEDSIDE GLUCOSE Collected: 04/01/2018 Status: F Source: [place] 6:58 AM [facility] REPOSITORY TYPE CODE TESTS RESULT OUT OF REFERENCE UNITS RANGE LAB L501.080 70-110 mg/dL High BEDSIDE GLU 115 Result Comment: MANAGEMENT OF PATIENT CARE PER NURSING PROTOCOL Performed By: #### L501.080 #### [facility] Point of Care [address] [place] [address] PROTHROMBIN TIME W/INR Collected: 04/01/2018 Status: F Source: [place] 5:35 AM [facility] REPOSITORY TYPE CODE TESTS RESULT OUT OF RANGE REFERENCE UNITS LAB L300.4150 11.7-14.9 SECONDS Normal PROTIME 14.9 LAB L300.4200 Normal INR 1.2 Performed By: #### L300.3900 #### [facility] [address] [place], [address] BASIC METABOLIC Collected: 04/01/2018 Status: F Source: [place] PROFILE (BMP) 5:35 AM [facility] REPOSITORY TYPE CODE TESTS RESULT OUT OF RANGE REFERENCE UNITS LAB L501.0100 74-106 mg/dL High GLU 121 Result Comment: Fasting Glucose result from 100 to 125 mg/dL suggests IMPAIRED HOMEOSTASIS per A.D.A. criteria. Please note revised GLUCOSE reference range effective 2017. LAB L501.1000 7-18 mg/dL High BUN 24 LAB L501.1100 0.55-1.02 mg/dL High CREAT,SERUM 1.10 Result Comment: The validity of the calculated GFR AND GFRAA in patients over 70 years has not been determined. Clinical correlation is essential. LAB L501.1110 >60 mL/min Low EST GFR 51 Result Comment: Non- GFR Calc LAB L501.1115 >60 mL/min Normal EST GFR - AA 61 Result Comment: GFR Calc LAB L501.1255 ml/min Normal Estimated CRCL 35.22 LAB L501.1300 10-20 RATIO High BUN/CRE 21.8 LAB L501.2200 8.5-10 mg/dL Low .1 CA 8.1 LAB L501.5300 136-14 mmol/L Low 5 NA 134 LAB L501.5600 3.5-5. mmol/L Normal 1 K 3.7 LAB L501.5900 98-107 mmol/L Normal CL 105 LAB L501.6100 21.0-3 mmol/L Normal 2.0 CO2 22.0 LAB L501.6200 5-15 Normal GAP 7 Performed By: #### L500.2500 #### [facility] [address] [place], [place], [id number] CBC W/DIFF, AUTOMATED Collected: 04/01/2018 Status: F Source: [place] 5:35 AM [facility] REPOSITORY TYPE CODE TESTS RESULT OUT OF RANGE REFERENCE UNITS LAB L100.1000 4.4-11.0 K/mm3 High WBC 15.4 LAB L100.1200 4.2-5.4 M/mm3 Low RBC 3.49 LAB L100.1300 12.0-15.0 g/dl Low HGB 10.3 LAB L100.1400 37-47 % Low HCT 30.2 LAB L100.1500 81-99 fL Normal MCV 86.5 LAB L100.1600 27.0-32.0 pg Normal MCH 29.5 LAB L100.1700 32-36 g/gl Normal MCHC 34.1 LAB L100.1810 11.6-14.6 % Normal RDW CV 13.4 LAB L100.1820 35.1-43.9 fl Normal RDW SD 41.0 LAB L100.1900 150-450 K/mm3 Normal PLT 292 LAB L100.2000 6.2-12.0 fl Normal MPV 10.6 LAB L100.2100 47-70 % High NEUT% 89.8 LAB L100.2200 19-41 % Low LY% 3.6 LAB L100.2300 0-10 % Normal MONO% 5.1 LAB L100.2400 0-5 % Normal EO% 0.0 LAB L100.2500 0-1 % Normal BASO% 0.1 LAB L100.2550 0.0-0.9 % High IM GRAN % 1.400 Result Comment: IG% - Immature Granulocytes (promyelocytes, myelocytes and metamyelocytes) > 1% indicates that a LEFT SHIFT is Present. LAB L100.2620 2.0-7.7 X10 3/uL High Absolute Neut 13.8 LAB L100.2720 0.83-4.51 X10 3/ul Low Absolute Lymph 0.55 Performed By: #### L100.0100 #### [facility] [address] [place], [address] T4 FREE DIRECT Collected: 04/01/2018 Status: F Source: [place] 5:35 AM [facility] REPOSITORY Order Comment: Comments: ok to add on TYPE CODE TESTS RESULT OUT OF RANGE REFERENCE UNITS LAB L506.0400 0.76-1.46 ng/dL Normal T4 FREE 1.35 DIRECT Performed By: #### L506.0400 #### [facility] [place], [address] FREE T3 Collected: 04/01/2018 Status: F Source: [place] 5:35 AM [facility] REPOSITORY Order Comment: Comments: ok to add on TYPE CODE TESTS RESULT OUT OF RANGE REFERENCE UNITS LAB L501.25294 2.18-3.98 pg/mL Low FREE T3 < 0.5 Performed By: #### L501.71899 #### [facility] [address] [place], [address] Observed: 03/31/2018 Status: F Source: [place] STOOL OCCULT BLOOD 11:50 PM [facility] IFOB REPOSITORY STOB iFOB Normal Reference Range = Negative Occult Blood Positive ORGANISM 1: OCCULT BLOOD POSITIVE Performed By: #### M100.7900 #### [facility] [address] [place], [address] Observed: 03/31/2018 Status: C Source: [place] LEGIONELLA ANTIGEN 11:50 PM [facility] URINE REPOSITORY CRITICAL VALUE VERIFIED. CALLED TO VIDYA ORTIZ 04/01/18 0023 Rhina Mcnally. RESULTS READ BACK BY SAME . Legionella, UR Legionella Antigen result interpretation: POSITIVE Presumptive positive for Legionella pneumophila serogroup 1 antigen in urine, suggesting current or past infection. Legionella Ag, Urine Positive (See interpretation below) ORGANISM 1: Legionella Antigen Performed By: #### M300.4500 #### [facility] [address] [place] [address], [address] STREP Observed: 03/31/2018 Status: F Source: [place] PNEUMONIAE ANTIG(UR,CSF) 11:50 PM [facility] REPOSITORY S pneumo Ag URINE INTERPRETATION Negative Urine Presumptive negative for pneumococcal pneumonia, suggesting no current or recent pneumococcal infection. Infection due to S pneumoniae cannot be ruled out since the antigen present in the sample may be below the detection limit of the test. Strep pneumo Test Negative URINE (See interpretation below) Performed By: #### M300.4600 #### [facility] [place], [address] BEDSIDE GLUCOSE Collected: 03/31/2018 Status: F Source: [place] 9:37 PM [facility] REPOSITORY TYPE CODE TESTS RESULT OUT OF REFERENCE UNITS RANGE LAB L501.080 70-110 mg/dL High BEDSIDE GLU 214 Result Comment: MANAGEMENT OF PATIENT CARE PER NURSING PROTOCOL Performed By: #### L501.080 #### [facility] Point of Care [address] [place] [address] EMERGENCY DEPARTMENT Observed: 03/31/2018 Status: F Source: [place] SUMMARY 4:31 PM [facility] REPOSITORY [facility] Medical Records Department [address] [place] [id number] Emergency Department Summary 03/31/18 0843 MR#: [id number] Acct: [id number] Name: ENDER ALVES Rep #: [id number] : 1935 82 From: Marito Hutson MD PCP: Zane CORONA,Brian Kowalski Status: ADM IN - ER Visit Summary Date of Service: 03/31/18 Chief Complaint: Cough and diarrhea History of Present Illness: The patient is a [address] Degroot and Dr. Bonilla. She reports that for the past 4 days she has had diarrhea approximately 3 times per day. No blood in her stools or black tarry stools. She has had nausea without vomiting. No abdominal pain. Patient denies sick contacts. Has not been camping out of the country. No possible bad food exposure. Does not drink well water. No recent antibiotic use. Patient also complains of subjective fever and chills. She has a nonproductive cough. She denies any chest pain or shortness of breath. She has a headache that is 7 out of 10 in severity and comes and goes. Finally, she complains of generalized weakness. Physical Examination: Vitals: 99.8, 144/73, 108, 28, 91% on room air which is not hypoxic. General: Well-nourished and well-developed. Head: Normocephalic atraumatic. Neck: Supple, no lymphadenopathy. No JVD. Nontender. Cardiovascular: Regular rate and rhythm. 2 out of 6 systolic murmur. Respiratory: No respiratory distress. Rhonchi on the left. Abdominal: Soft, nontender, nondistended, normal bowel sounds. No guarding, rebound, or peritoneal signs. Back: Nontender. Extremities: Nontender, no edema. Skin: Normal color, no rash. Neurologic: Alert and oriented 3. Cranial nerves II through XII are intact. Normal strength and sensation. Psych: Normal affect. Test Results: EKG is sinus tachycardia 107 and is unchanged from January 2015. CBC is more for white count of 17.5 with 92 segmented neutrophils and 4 lymphocytes. Hematocrit is 36.4. Chem-7 is more for sodium 131, potassium 3.0, calcium 8.4, glucose of 202, BUN 22, creatinine 1.28. LFTs marked for an albumin of 2.2 and globulin 5.1. Lipase is normal. Troponin 0 0.019. Chest x-ray shows a left upper lobe and left lower lobe infiltrate. Lactic acid is 1.6. Magnesium is 1.9. Emergency Department Course and Treatment: Patient had a run where her heart rate was approximately 200. This appears to be SVT on the rhythm strip. This resolved without treatment. She is also having occasional PVCs. When the chest x-ray was obtained the patient had a lactic acid added and was given Rocephin and Zithromax IV. She was given K-Dur p.o. She was given Zofran for her nausea. She is resting comfortably. Treatment Plan: Patient will be discussed the hospitalist for admission. Disposition: Admitted in serious condition. Impression: 1. Pneumonia, community-acquired. 2. Diarrhea. 3. Hypokalemia. 4. SVT. This note was generated with [employer] dictation software. It may contain incorrect words, spelling, and punctuation that were not noted in review of the chart prior to signing ED Disposition - Plan for ED Patient: Chief Complaint: Nausea/Vomiting/Diarrhea Referrals: Brian Degroot Chi, MD [Primary Care Provider] - What to do if you have Problems For any increased pain, shortness of breath, bleeding, nausea or vomiting, chest pain, or any unexpected problems, contact your Primary Care Provider. Call [facility] ([phone]) or report to the closest Emergency Room. Call 911 if necessary. 03/31/18 1631 <Electronically signed by Marito Hutson MD> Date Marito Hutson MD Cosigner Signature (If Indicated): Date CC: Brian Degroot MD BEDSIDE GLUCOSE Collected: 03/31/2018 Status: F Source: [place] 4:25 PM [facility] REPOSITORY TYPE CODE TESTS RESULT OUT OF REFERENCE UNITS RANGE LAB L501.080 70-110 mg/dL High BEDSIDE GLU 253 Result Comment: Dr Bernal Followed Insulin Given MANAGEMENT OF PATIENT CARE PER NURSING PROTOCOL Performed By: #### L501.080 #### [facility] Point of Care [address] [place] [address] Observed: 03/31/2018 Status: F Source: [place] CDIFF (MOLECULAR) 4:15 PM [facility] REPOSITORY Is the patient receiving laxatives? N New/unexplained onset of 3 or more stools in past 24 hrs? Y Cdiff-Molecular Normal Reference Range = Negative C. Diff DNA Negative- No toxigenic C. Diff DNA Detected NAAT METHOD Testing was performed using nucleic acid amplification Performed By: #### M100.6796 #### [facility] [address] [place], [address] URINALYSIS, COMPLETE Collected: 03/31/2018 Status: F Source: [place] 3:00 PM [facility] REPOSITORY Order Comment: Order Date: 03/31/18 How was Urine Obtained? CLEAN CATCH TYPE CODE TESTS RESULT OUT OF RANGE REFERENCE UNITS LAB L400.3000 Yellow COLOR Normal Yellow LAB L400.3050 Clear Normal CLARITY Clear LAB L400.3200 Normal mg/dl High GLUCOSE, UR 100 LAB L400.3300 Negative mg/dL Normal BILIRUBIN URINE Negative LAB L400.3400 Negative mg/dl Normal KETONE UR Negative LAB L400.3465 1.002-1.030 Normal SP.GR. DIPSTX 1.015 LAB L400.3550 5.0 - 8.0 pH UR Normal 5.0 LAB L400.3600 Negative mg/dl High PROT DIPSTX 100 LAB L400.3700 Normal mg/dl Normal UROBILI Normal LAB L400.3750 Negative Normal NITRITE UR Negative LAB L400.3780 Negative /ul High OCCULT BLOOD-UR 150 LAB L400.3800 Negative /ul High LEUK 25 ESTERASE LAB L400.4050 0-5 /hpf WBC Normal 0-5 SEEN LAB L400.4100 0-5 /hpf 0 Normal RBC-UA SEEN LAB L400.4150 5-10 /hpf SQUAM Normal EPI 5-10 SEEN LAB L400.4300 None Seen /hpf 1+ Normal BACTERIA LAB L400.4350 <or=2+ /hpf 0 Normal MUCUS, URINE SEEN LAB L400.4500 0-5 /lpf /lpf Normal COARSE GRAN 0-5 SEEN LAB L400.4900 2+ Normal AMORPHOUS Performed By: #### L400.0001 #### [facility] [address] [place], [address] HISTORY AND PHYSICAL Observed: 03/31/2018 Status: F Source: [place] EXAM 1:45 PM [facility] REPOSITORY [facility] Medical Records Department [address] [place] [address] History and Physical 03/31/18 1306 MR#: [id number] Acct: [id number] Name: LIVEENDER ACKERMAN Rep #: [id number] : 1935 82 From: Anish PERRY PCP: Zane CORONA,Brian Kowalski Status: [facility]M IN [id number] <Anish Villanueva - Last Filed: 03/31/18 13:10> Problem List (1) Sepsis Status: Acute (2) Pneumonia Status: Acute (3) SVT (supraventricular tachycardia) Status: Acute (4) DM2 (diabetes mellitus, type 2) Status: Chronic (5) CAD (coronary artery disease) Status: Chronic (6) HLD (hyperlipidemia) Status: Chronic (7) Hypertension Status: Chronic History of Present Illness Date of Admission: 03/31/18 Chief Complaint: diarrhea The patient is a 82 year old F who has a hx of CAD s/p CABG 1991 and stents 2013 - pt of Dr. Bonilla, HTN, HLD, DMt2, hypothyroid, former smoker, who presents to the ER with chief complaint of diarrhea x 4 days. She has had at least 3 episodes of diarrhea that is watery, she is unsure if there is blood, everyday. She also has had a cough for the same amount of time. She has produced some mucus, feels that she has significant chest congestion but is unable to clear it. She has no fever or chills. She is overall fatigued. She denies hx lung dz, is a former smoker who smoked until 57, for about 23 years. She is on O2 but does not normally use any at home. She was dizzy and lightheaded today, denied palpitations. In the ER her CXR demonstrated pna on the left side. She experienced an episode of SVT which was self limited and resolved without intervention. She is currently resting in bed, breathing heavily and speaking only a few words at a time. She denies sick contacs. She travelled by plane to [place] recently. She denies CP or pleurisy. [] Past Medical History Past Medical History (Chronic Problems): Chronic Problems (Last Reviewed 11/24/17 @ 13:03 by Carol Barba) DM2 (diabetes mellitus, type 2) (Chronic) CAD (coronary artery disease) (Chronic) HLD (hyperlipidemia) (Chronic) TIA (transient ischemic attack) (Chronic) History of percutaneous transluminal coronary angioplasty (Chronic) PTCA with Taxus stent to SVG to OM, 2005 - 03/05/10 PTCA/stent (JESSICA) to proximal to mod SVG to 2nd obtuse marginal artery - Successful angioplasty AND Promus [place] of [place] OM PCI @ [facility] stent SVG-OM 01/10 Aortocoronary bypass status (Chronic) CABG SVG to DG, OM AND RCA Carotid bruit (Chronic) Coronary atherosclerosis of [place] coronary artery (Chronic) Hypertension (Chronic) Medical History: Medical History (Last Reviewed 11/24/17 @ 13:03 by Carol Barba) CAD (coronary artery disease) (Chronic) I25.10 HLD (hyperlipidemia) (Chronic) E78.5 TIA (transient ischemic attack) (Chronic) G45.9 Carotid bruit (Chronic) R09.89 Coronary atherosclerosis of [place] coronary artery (Chronic) I25.10 Hypertension (Chronic) I10 Abnormal finding on cardiovascular stress test R94.39 COPD (chronic obstructive pulmonary disease) J44.9 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.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 Allergies No Known Allergies Allergy (Verified 03/31/18 07:21) Home Medications: Ambulatory Orders Medication Instructions Recorded Aspirin [Aspirin, Baby] 81 mg PO DAILY@0800 10/13/13 Levothyroxine [Synthroid] 137 mcg PO DAILY 10/13/13 Potassium Chloride [Klor-Con 10] 20 meq PO DAILY 10/13/13 Surgical History: Surgical History (Last Reviewed 11/24/17 @ 13:03 by Carol Barba) History of percutaneous transluminal coronary angioplasty (Chronic) Z98.61 PTCA with Taxus stent to SVG to OM, 2005 - 03/05/10 PTCA/stent (JESSICA) to proximal to mod SVG to 2nd obtuse marginal artery - Successful angioplasty AND Promus JESSICA of [place] OM PCI @ [facility] stent SVG-OM 01/10 Aortocoronary bypass status (Chronic) Z95.1 CABG SVG to DG, OM AND RCA Surgical History: appendectomy, cholecystectomy, coronary bypass surgery, hysterectomy Psychiatric History: No pertinent psych hx GAMMA OPERATOR History: No pertinent GAMMA OPERATOR history Lives: Alone Smoking Status: Former smoker Tobacco Use: Non-smoker Alcohol: None Drugs: None - *Family History Maternal Family History: Family History (Last Reviewed 11/24/17 @ 13:03 by Carol Barba) Mother Colon cancer History Items: Heart Disease Paternal Family History: Family History (Last Reviewed 11/24/17 @ 13:03 by Carol Barba) Mother Colon cancer History Items: No pertinent history Review of Systems Constitutional: Reports: Malaise, Weakness, Fatigue. Denies: Chills, Fever, Weight Change HEENT: Denies: Head Aches, Sinus Congestion, Sinus Drainage Cardiovascular: Reports: Light Headedness. Denies: Chest Pain, Chest Pressure, Chest Tightness, Edema, Heaviness, Orthopnea, Palpitations, Syncope Respiratory: Reports: Cough, Shortness of Breath, Shortness of breath at rest, Shortness of breath upon exertion, Sputum production. Denies: Wheezing Gastrointestinal: Reports: Diarrhea. Denies: Abdominal Pain, Nausea, Vomiting Genitourinary: Denies: Dysuria Musculoskeletal: Denies: Joint Pain, Joint Tenderness Skin: Denies: Rash, Wounds Neurological: Denies: Numbness, Tingling, Focal weakness Psychiatric: Denies: Anxiety, Depression, Homicidal Ideations, Suicidal Ideations Hematologic/ Lymphatic: Denies: Easy Bruising, Easy Bleeding VTE Information - Inpt Only VTE Present on Admission: No VTE Mechan Device Prophylaxis: SCD's VTE Pharm Prophylaxis ordered?: Yes Patient Problems: Active and Suspected Problems (Last Reviewed 11/24/17 @ 13:03 by Carol Barba) Pneumonia (Acute) SVT (supraventricular tachycardia) (Acute) Sepsis (Acute) - Physical Exam General: Alert, Oriented x3, Cooperative, Lethargic HEENT: Atraumatic, PERRLA, EOMI, Normocephalic Neck: Supple, No JVD, Negative Carotid Bruits Lungs: Diminished, Rales - LLL, Short of Breath, Tachypneic, - - conversational dyspnea Cardiovascular: Regular rate, No murmurs, Tachycardic Abdomen: Bowel Sounds Present, Soft, Non Tender Extremities: No edema, Capillary Refill Less than 3 Seconds Skin: No rashes, No breakdown Musculoskeletal: No Tenderness to Palpation of Joints or Extremities Neurological: Cranial nerves II-XII grossly intact Psych/Mental Status: Normal Affect, Appropriate, Alert and oriented to time, place, person, mood and affect Vital Signs Temp Pulse Resp BP Pulse Ox 98.3 F 111 H 20 H 143/82 H 94 03/31/18 10:54 03/31/18 12:07 03/31/18 10:54 03/31/18 10:54 03/31/18 11:00 Oxygen Flow Rate (L/min) 3 Oxygen Delivery Method Nasal Cannula Weight: 80.1 kg Body Mass Index (BMI) 30.3 Intake and Output for Last 24 Hours Intake Total 262.4 / 262.4 Balance 262.4 / 262.4 POC Glucose POC Glucose 226 H Assessment/Plan All Active Problems (Last Reviewed 11/24/17 @ 13:03 by Carol Barba) Pneumonia (Acute) SVT (supraventricular tachycardia) (Acute) Sepsis (Acute) Chest pain (Acute) 1. Acute sepsis 2/2 left sided CAP - suspect pneumococcal - as evidenced by tachycardia, tachypnea, leukocytosis, CXR. Continue rocephin and azithromycin, mucinex, pep therapy, urine antigens, sputum culture, blood culture. Afebrile. Add ipratropium, avoid albuterol with SVT. Currently on 3 lpm O2, does not use home o2. 2. SVT 2/2 sepsis - maintain on tele. resolved without intervention. Continue beta blockers. 3. Dehydration 2/2 diarrhea (suspect viral) - with hypokalemia and hyponatremeia. Provide IV fluids with NaCl. Trend. Cdiff ordered for diarrhea. 4. DMt2 - hold orals, SSI 5. CAD - prior CABG/stents, pt of Dr. Bonilla - continue asa/statin, beta liana, plavix, imdur, arb. Troponin is neg. EKG with sinus tach 6. Hypothyroid - synthroid. 7. HTN - running on high side, trend. DVT ppx: Lovenox DC planning: ptot This patient was seen by Anish Villanueva PA-C under the supervision of Doctor Romo. <Kel Romo - Last Filed: 03/31/18 13:45> Problem List (1) Pneumonia Status: Acute (2) Sepsis Status: Acute History of Present Illness The patient is a 82 year old F who has been having myalgias, arthralgias and diarrhea for approximately 4 days Presents to the ER. Found to have pneumonia and sepsis. Received azithromycin and ceftriaxone. 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 Allergies No Known Allergies Allergy (Verified 03/31/18 07:21) Surgical History: Surgical History (Last Reviewed 03/31/18 @ 13:40 by Kel Romo DO) History of percutaneous transluminal coronary angioplasty (Chronic) Z98.61 PTCA with Taxus stent to SVG to OM, 2005 - 03/05/10 PTCA/stent ([facility]) to proximal to mod SVG to 2nd obtuse marginal artery - Successful angioplasty AND Promus JESSICA of [place] OM PCI @ [facility] stent SVG-OM 01/10 Aortocoronary bypass status (Chronic) Z95.1 CABG SVG to DG, OM AND RCA - *Family History Maternal Family History: Family History (Last Reviewed 03/31/18 @ 13:40 by Kel Romo DO) Mother Colon cancer Paternal Family History: Family History (Last Reviewed 03/31/18 @ 13:40 by Kel Romo DO) Mother Colon cancer Review of Systems Constitutional: Reports: Malaise, Weakness. Denies: Chills, Fever, Weight Change, Fatigue Eyes: Denies: Blurred vision, Double vision HEENT: Denies: Head Aches, Sinus Congestion, Sinus Drainage Cardiovascular: Reports: Light Headedness. Denies: Chest Pain, Chest Pressure, Chest Tightness, Edema, Heaviness, Orthopnea, Palpitations, Syncope Respiratory: Reports: Cough, Shortness of Breath, Shortness of breath at rest, Shortness of breath upon exertion, Sputum production. Denies: Wheezing Gastrointestinal: Reports: Diarrhea. Denies: Abdominal Pain, Nausea, Vomiting Genitourinary: Denies: Dysuria Musculoskeletal: Denies: Hand Pain, Joint Tenderness Skin: Denies: Rash, Wounds Neurological: Denies: Focal weakness, Numbness, Tingling Psychiatric: Denies: Anxiety, Depression, Homicidal Ideations, Suicidal Ideations Hematologic/ Lymphatic: Denies: Easy Bruising, Easy Bleeding VTE Information - Inpt Only VTE Present on Admission: No VTE Mechan Device Prophylaxis: SCD's VTE Pharm Prophylaxis ordered?: Yes - Physical Exam General: Alert, Cooperative, Lethargic HEENT: Atraumatic, PERRLA, EOMI, Normocephalic Neck: Supple, No JVD, Negative Carotid Bruits Lungs: Diminished, Rales, Short of Breath, Tachypneic, - Cardiovascular: Regular Rhythm, Normal S1, Normal S2, No murmurs Abdomen: Bowel Sounds Present, Soft, Non Tender, Non-Distended Extremities: No edema, No Calf Tenderness Skin: No rashes, No breakdown Musculoskeletal: No Tenderness to Palpation of Joints or Extremities Neurological: Neuro grossly intact, Muscle tone normal, Coordination normal Psych/Mental Status: Normal Affect, Appropriate Comment: vomited while I was in the room. Vital Signs Temp Pulse Resp BP Pulse Ox 36.8 C 111 H 20 H 143/82 H 94 03/31/18 10:54 03/31/18 12:07 03/31/18 10:54 03/31/18 10:54 03/31/18 11:00 Oxygen Flow Rate (L/min) 3 Oxygen Delivery Method Nasal Cannula Weight: 80.1 kg Body Mass Index (BMI) 30.3 Intake and Output for Last 24 Hours Intake Total 262.4 / 262.4 Balance 262.4 / 262.4 POC Glucose POC Glucose 226 H CXR reviewed and showed left sided hazy infiltrate. Assessment/Plan Patient seen and examined independently. Data reviewed. I agree with the above note by the physician human resources assistant manager. 1. Sepsis * Present on arrival * Secondary to pneumonia * Supportive management 2. Suspected pneumococcal pneumonia * Continue with azithromycin and Rocephin * Check urinary antigens for Streptococcus and Legionella * Pulmonary toilet 3. Diarrhea * Doubt C. difficile but will follow up studies * If C. difficile negative then patient be started on Imodium 4. SVT * Transient and resolved * Patient be monitored on telemetry for now, if no further events, may consider discontinuing telemetry 5. Advanced care planning: Discussed with the patient. Patient wishes to have CPR in the event of cardiac arrest but does not wish to be intubated if she develops respiratory arrest. I informed that these decisions are certainly fluid again change at later points. 6. DVT prophylaxis with Lovenox Code Visit Inpatient E AND M: [id number] Init Hosp L3 03/31/18 1325 <Electronically signed by Anish PERRY> Date Anish PERRY 03/31/18 1345<Electronically signed by Kel Romo DO> Cosigner Signature: Date (if applicable) Kel Romo DO CC: VICKY Villanueva; Kel Romo DO; Brian Degroot MD Signed BEDSIDE GLUCOSE Collected: 03/31/2018 Status: F Source: [place] 11:09 AM [facility] REPOSITORY TYPE CODE TESTS RESULT OUT OF REFERENCE UNITS RANGE LAB L501.080 70-110 mg/dL High BEDSIDE GLU 226 Result Comment: Orders Followed Insulin Given MANAGEMENT OF PATIENT CARE PER NURSING PROTOCOL Performed By: #### L501.080 #### [facility] Point of Care [address] [place] [address] Observed: 03/31/2018 Status: F Source: [place] CULTURE, BLOOD (WB) 8:20 AM [facility] REPOSITORY BC No growth in 5 days. Performed By: #### M200.1000 #### [facility] [address] [place], [address] CHEST 1 VIEW Observed: 03/31/2018 Status: F Source: [place] (PORTABLE) 7:32 AM [facility] REPOSITORY [facility] Imaging Services [address] [place] [address] Chest 1 View (Portable) MR#: [id number] Acct: [id number] Name: ENDER ALVES Rep #: [id number] : 1935 F 82 From: Farzad Banks MD PCP: Zane CORONA,Brian Kowalski Status: REG ER Study: Chest 1 View (Portable) Date of Exam: 03/31/18 Exam# [id number] Ordering Dr: Marito Hutson MD STUDY: X-RAY CHEST REASON FOR EXAM: Female, 82 years old. Shortness of breath, nausea and vomiting. TECHNIQUE: Single AP portable view of the chest. COMPARISON: Comparison is made with prior study dated January 01, 2018. FINDINGS: EKG electrodes are seen. There is evidence of infiltration in the left upper lobe and patchy infiltrate in the left lower lobe with blunting of the left costophrenic angle. Radiographic follow-up is recommended. Sternal cerclage wires and vascular clips are present from a prior sternotomy and coronary artery bypass graft procedure (CABG). Normal mediastinum and norma. Normal visualized pulmonary arteries. There is atherosclerotic calcification of the aortic arch with tortuosity. Normal visualized thoracic spine. Healed right rib fractures. There is no demonstrated abnormality of the visualized soft tissue structures of the upper abdomen. RAD/Chest 1 View (Portable) IMPRESSION: Left pulmonary infiltrates with blunting of the left costophrenic angle. Radiographic follow-up is recommended. Electronically Signed: Farzad Banks MD at 7:57 EDT Tel [phone], Service support , CC: Marito Hutson MD; Brian Degroot MD Shift Boss: Signed CBC W/DIFF, AUTOMATED Collected: 03/31/2018 Status: F Source: [place] 7:06 AM [facility] REPOSITORY TYPE CODE TESTS RESULT OUT OF RANGE REFERENCE UNITS LAB L100.1000 4.4-11.0 K/mm3 High WBC 17.5 LAB L100.1200 4.2-5.4 M/mm3 Normal RBC 4.29 LAB L100.1300 12.0-15.0 g/dl Normal HGB 12.3 LAB L100.1400 37-47 % Low HCT 36.4 LAB L100.1500 81-99 fL Normal MCV 84.8 LAB L100.1600 27.0-32.0 pg Normal MCH 28.7 LAB L100.1700 32-36 g/gl Normal MCHC 33.8 LAB L100.1810 11.6-14.6 % Normal RDW CV 13.2 LAB L100.1820 35.1-43.9 fl Normal RDW SD 40.6 LAB L100.1900 150-450 K/mm3 Normal PLT 345 LAB L100.2000 6.2-12.0 fl Normal MPV 10.5 LAB L100.2100 47-70 % High NEUT% 92.4 LAB L100.2200 19-41 % Low LY% 3.5 LAB L100.2300 0-10 % Normal MONO% 3.7 LAB L100.2400 0-5 % Normal EO% 0.0 LAB L100.2500 0-1 % Normal BASO% 0.1 LAB L100.2550 0.0-0.9 % Normal IM GRAN % 0.300 Result Comment: IG% - Immature Granulocytes (promyelocytes, myelocytes and metamyelocytes) > 1% indicates that a LEFT SHIFT is Present. LAB L100.2620 2.0-7.7 X10 3/uL High Absolute Neut 16.2 LAB L100.2720 0.83-4.51 X10 3/ul Low Absolute Lymph 0.61 Performed By: #### L100.0100 #### [facility] [address] [place], [address] BASIC METABOLIC Collected: 03/31/2018 Status: F Source: [place] PROFILE ([facility]) 7:06 AM [facility] REPOSITORY TYPE CODE TESTS RESULT OUT OF RANGE REFERENCE UNITS LAB L501.0100 74-106 mg/dL High GLU 202 Result Comment: Glucose result greater than or equal to 200 mg/dL suggests DIABETES MELLITUS per A.D.A. criteria. Please note revised GLUCOSE reference range effective 2017. LAB L501.1000 7-18 mg/dL High BUN 22 LAB L501.1100 0.55-1.02 mg/dL High CREAT,SERUM 1.28 Result Comment: The validity of the calculated GFR AND GFRAA in patients over 70 years has not been determined. Clinical correlation is essential. LAB L501.1110 >60 mL/min Low EST GFR 43 Result Comment: Non- GFR Calc LAB L501.1115 >60 mL/min Low EST GFR - AA 52 Result Comment: GFR Calc LAB L501.1255 ml/min Normal Estimated CRCL 30.27 LAB L501.1300 10-20 RATIO Normal BUN/CRE 17.2 LAB L501.2200 8.5-10 mg/dL Low .1 CA 8.4 LAB L501.5300 136-14 mmol/L Low 5 NA 131 LAB L501.5600 3.5-5. mmol/L Low 1 K 3.0 LAB L501.5900 98-107 mmol/L Normal CL 98 LAB L501.6100 21.0-3 mmol/L Normal 2.0 CO2 21.0 LAB L501.6200 5-15 Normal GAP 12 Performed By: #### L500.2500, L500.3400, L501.2450, L501.4010 #### [facility] [address] [place], [place], [id number] LIVER PROFILE Collected: 03/31/2018 Status: F Source: [place] 7:06 AM [facility] REPOSITORY TYPE CODE TESTS RESULT OUT OF RANGE REFERENCE UNITS LAB L501.1500 6.4-8.2 g/dL Normal T PROT 7.3 LAB L501.1800 3.2-5.0 g/dL Low ALB 2.2 LAB L501.1950 2.2-4.2 g/dL High GLOB 5.1 LAB L501.4100 15-37 U/L Normal AST 17 LAB L501.4305 45-117 U/L Normal ALK P 85 LAB L501.4405 13-56 U/L Normal ALT 23 LAB L501.4600 0.20-1.00 mg/dL Normal T BILI 0.70 LAB L501.4700 0.00-0.30 mg/dL Normal D BILI 0.26 Performed By: #### L500.2500, L500.3400, L501.2450, L501.4010 #### [facility] [address] [facility] [place], [place], [id number] LIPASE Collected: 03/31/2018 Status: F Source: [place] 7:06 AM [facility] REPOSITORY TYPE CODE TESTS RESULT OUT OF RANGE REFERENCE UNITS LAB L501.2450 73-393 U/L Normal LIPASE 133 Performed By: #### L500.2500, L500.3400, L501.2450, L501.4010 #### [facility] [address] [place], [place], [id number] TROPONIN-I Collected: 03/31/2018 Status: F Source: [place] 7:06 AM [facility] REPOSITORY TYPE CODE TESTS RESULT OUT OF RANGE REFERENCE UNITS LAB L501.4010 <0.045 ng/mL Normal 0.019 TROPONIN-I Result Comment: TROPONIN-I EXPECTED VALUES <0.045 Negative 0.045 - 0.590 Consistent with Cardiac Damage > OR = 0.600 Critical Value Not every elevated troponin is indicative of IA. These values should be used with clinical judgement in examining the patient's clinical picture for diagnosis. To establish a diagnosis of IA versus myocardial injury, there must be a demonstrated rise and/or fall in the troponin values, in addition to ischemic symptoms, EKG changes, new regional wall motion abnormality, and/or angiographical evidence. PLEASE NOTE: REFERENCE RANGES EDITED 18 Performed By: #### L500.2500, L500.3400, L501.2450, L501.4010 #### [facility] [address] [place], [place], [id number] PROTHROMBIN TIME W/INR Collected: 03/31/2018 Status: F Source: [place] 7:06 AM [facility] REPOSITORY TYPE CODE TESTS RESULT OUT OF RANGE REFERENCE UNITS LAB L300.4150 11.7-14.9 SECONDS High PROTIME 15.0 LAB L300.4200 Normal INR 1.2 Performed By: #### L300.3900, L300.4310 #### [facility] [address] [place], [address] PARTIAL THROMBOPLAST Collected: 03/31/2018 Status: F Source: [place] TIME 7:06 AM [facility] REPOSITORY TYPE CODE TESTS RESULT OUT OF REFERENCE UNITS RANGE LAB L300.4310 24.1-36.2 Seconds High PTT 41.9 Performed By: #### L300.3900, L300.4310 #### [place] [facility] [address] [place], [address] MAGNESIUM Collected: 03/31/2018 Status: F Source: [place] 7:06 AM [facility] REPOSITORY TYPE CODE TESTS RESULT OUT OF RANGE REFERENCE UNITS LAB L501.5200 1.6-2.6 mg/dL Normal MG 1.9 Performed By: #### L501.5200 #### [facility] [address] [place], [address] LACTIC ACID Collected: 03/31/2018 Status: F Source: [place] 7:06 AM [facility] REPOSITORY Order Comment: Yes/No query for Sepsis Lactate Rule Y TYPE CODE TESTS RESULT OUT OF RANGE REFERENCE UNITS LAB L503.6005 0.4-2.0 mmol/L Normal LACTIC ACID 1.6 Performed By: #### L503.6005 #### [facility] [address] [place], [address] THYROID STIM HORMONE Collected: 03/31/2018 Status: F Source: [place] (TSH) 7:06 AM [facility] REPOSITORY Order Comment: Comments: ok to add on TYPE CODE TESTS RESULT OUT OF RANGE REFERENCE UNITS LAB L501.9520 0.358-3.74 uIU/mL Low TSH 0.25 Performed By: #### L501.9520 #### [facility] [address] [place], [address] Observed: 03/31/2018 Status: F Source: [place] CULTURE, BLOOD (WB) 7:06 AM [facility] REPOSITORY BC No growth in 5 days. Performed By: #### M200.1000 #### [facility] [address] [place], [address] CBC W/DIFF, AUTOMATED Collected: 03/26/2018 Status: F Source: [place] 3:27 PM [facility] REPOSITORY TYPE CODE TESTS RESULT OUT OF RANGE REFERENCE UNITS LAB L100.1000 4.4-11.0 K/mm3 High WBC 12.2 LAB L100.1200 4.2-5.4 M/mm3 Low RBC 4.12 LAB L100.1300 12.0-15.0 g/dl Low HGB 11.8 LAB L100.1400 37-47 % Low HCT 36.2 LAB L100.1500 81-99 fL Normal MCV 87.9 LAB L100.1600 27.0-32.0 pg Normal MCH 28.6 LAB L100.1700 32-36 g/gl Normal MCHC 32.6 LAB L100.1810 11.6-14.6 % Normal RDW CV 13.2 LAB L100.1820 35.1-43.9 fl Normal RDW SD 42.3 LAB L100.1900 150-450 K/mm3 Normal PLT 338 LAB L100.2000 6.2-12.0 fl Normal MPV 10.8 LAB L100.2100 47-70 % Normal NEUT% 69.3 LAB L100.2200 19-41 % Normal LY% 20.2 LAB L100.2300 0-10 % Normal MONO% 8.2 LAB L100.2400 0-5 % Normal EO% 1.8 LAB L100.2500 0-1 % Normal BASO% 0.3 LAB L100.2550 0.0-0.9 % Normal IM GRAN % 0.200 Result Comment: IG% - Immature Granulocytes (promyelocytes, myelocytes and metamyelocytes) > 1% indicates that a LEFT SHIFT is Present. LAB L100.2620 2.0-7.7 X10 3/uL High Absolute Neut 8.5 LAB L100.2720 0.83-4.51 X10 3/ul Normal Absolute Lymph 2.47 Performed By: #### L100.0100, L101.9900 #### [facility] [address] [facility] [place], [place], [id number] ERYTHROCYTE SED RATE Collected: 03/26/2018 Status: F Source: [place] 3:27 PM [facility] REPOSITORY TYPE CODE TESTS RESULT OUT OF RANGE REFERENCE UNITS LAB L102.0000 0-30 mm/hr High SED RATE 41 Performed By: #### L100.0100, L101.9900 #### [facility] [address] [place], [place], [id number] BASIC METABOLIC Collected: 03/26/2018 Status: F Source: [place] PROFILE (BMP) 3:27 PM [facility] REPOSITORY TYPE CODE TESTS RESULT OUT OF RANGE REFERENCE UNITS LAB L501.0100 74-106 mg/dL High GLU 125 Result Comment: Fasting Glucose result from 100 to 125 mg/dL suggests IMPAIRED HOMEOSTASIS per A.D.A. criteria. Please note revised GLUCOSE reference range effective 2017. LAB L501.1000 7-18 mg/dL High BUN 19 LAB L501.1100 0.55-1.02 mg/dL Normal CREAT,SERUM 0.93 Result Comment: The validity of the calculated GFR AND GFRAA in patients over 70 years has not been determined. Clinical correlation is essential. LAB L501.1110 >60 mL/min Normal EST GFR 62 Result Comment: Non- GFR Calc LAB L501.1115 >60 mL/min Normal EST GFR - AA 75 Result Comment: GFR Calc LAB L501.1300 10-20 RATIO High BUN/CRE 20.5 LAB L501.2200 8.5-10.1 mg/dL CA Normal 9.0 LAB L501.5300 136-145 mmol/L NA Normal 140 LAB L501.5600 3.5-5.1 mmol/L K Normal 3.5 LAB L501.5900 98-107 mmol/L High CL 108 LAB L501.6100 21.0-32.0 mmol/L Normal CO2 23.0 LAB L501.6200 5-15 Normal GAP 9 Performed By: #### L500.2500, L501.1400, L501.6710 #### [facility] [address] [place], [place], [address] URIC ACID Collected: 03/26/2018 Status: F Source: [place] 3:27 PM [facility] REPOSITORY TYPE CODE TESTS RESULT OUT OF RANGE REFERENCE UNITS LAB L501.1400 2.6-6.0 mg/dL Normal URIC 4.1 Result Comment: The drugs N-Acetylcysteine and Metamizole may falsely depress this assay. Performed By: #### L500.2500, L501.1400, L501.6710 #### [facility] [address] [place], [place], [address] CRP Collected: 03/26/2018 Status: F Source: [place] 3:27 PM [facility] REPOSITORY TYPE CODE TESTS RESULT OUT OF RANGE REFERENCE UNITS LAB L501.6710 0.0-3.0 mg/L High 19.50 C-REACTIVE PROT Result Comment: C-Reactive Protein (CRP) provides useful information for the diagnosis, therapy and monitoring of inflammatory processes and associated diseases. For the evaluation of Relative Risk for Cardiovascular Disease, a High Sensitivity CRP (HSCRP) should be ordered. Performed By: #### L500.2500, L501.1400, L501.6710 #### [facility] [address] [place], [address] CBC W/DIFF, AUTOMATED Collected: 02/11/2018 Status: F Source: [place] 4:15 PM [facility] REPOSITORY TYPE CODE TESTS RESULT OUT OF RANGE REFERENCE UNITS LAB L100.1000 4.4-11.0 K/mm3 Normal WBC 10.1 LAB L100.1200 4.2-5.4 M/mm3 Normal RBC 4.37 LAB L100.1300 12.0-15.0 g/dl Normal HGB 12.6 LAB L100.1400 37-47 % Normal HCT 38.6 LAB L100.1500 81-99 fL Normal MCV 88.3 LAB L100.1600 27.0-32.0 pg Normal MCH 28.8 LAB L100.1700 32-36 g/gl Normal MCHC 32.6 LAB L100.1810 11.6-14.6 % Normal RDW CV 13.7 LAB L100.1820 35.1-43.9 fl Normal RDW SD 43.7 LAB L100.1900 150-450 K/mm3 Normal PLT 308 LAB L100.2000 6.2-12.0 fl Normal MPV 11.5 LAB L100.2100 47-70 % Normal NEUT% 59.8 LAB L100.2200 19-41 % Normal LY% 29.0 LAB L100.2300 0-10 % Normal MONO% 7.9 LAB L100.2400 0-5 % Normal EO% 2.3 LAB L100.2500 0-1 % Normal BASO% 0.6 LAB L100.2550 0.0-0.9 % Normal IM GRAN % 0.400 Result Comment: IG% - Immature Granulocytes (promyelocytes, myelocytes and metamyelocytes) > 1% indicates that a LEFT SHIFT is Present. LAB L100.2620 2.0-7.7 X10 3/uL Normal Absolute Neut 6.0 LAB L100.2720 0.83-4.51 X10 3/ul Normal Absolute Lymph 2.92 Performed By: #### L100.0100 #### [facility] [address] [place], [address] VITAMIN D,25 HYDROXY Collected: 02/11/2018 Status: F Source: [place] 4:15 PM [facility] REPOSITORY TYPE CODE TESTS RESULT OUT OF RANGE REFERENCE UNITS LAB L506.1000 29.95-100.01 ng/mL Normal Vitamin D 32.2 25-OH Result Comment: Vitamin D 25(OH) Status Range Deficiency <20 ng/mL (50nmol/L) Insuffciency 20 - 30 ng/mL (50 - 75 nmol/L) Sufficiency 30 - 100 ng/mL (75 - 250 nmol/L) Toxicity >100 ng/mL (>250 nmol/L) Performed By: #### L506.1000 #### [facility] [address] [place], [address] COMPREHENSIVE METABOLIC Collected: 02/11/2018 Status: F Source: [facility] 4:15 PM [facility] REPOSITORY TYPE CODE TESTS RESULT OUT OF RANGE REFERENCE UNITS LAB L501.0100 74-106 mg/dL High GLU 181 Result Comment: Fasting Glucose result greater than or equal to 126 mg/dL suggests DIABETES MELLITUS per A.D.A. criteria. Please note revised GLUCOSE reference range effective 2017. LAB L501.1000 7-18 mg/dL High BUN 21 LAB L501.1100 0.55-1.02 mg/dL High CREAT,SERUM 1.18 Result Comment: The validity of the calculated GFR AND GFRAA in patients over 70 years has not been determined. Clinical correlation is essential. LAB L501.1110 >60 mL/min Low EST GFR 47 Result Comment: Non- GFR Calc LAB L501.1115 >60 mL/min Low EST GFR - AA 57 Result Comment: GFR Calc LAB L501.1300 10-20 RATIO Normal BUN/CRE 17.8 LAB L501.1500 6.4-8.2 g/dL T Normal PROT 7.2 LAB L501.1800 3.2-5.0 g/dL Normal ALB 3.5 LAB L501.1950 2.2-4.2 g/dL Normal GLOB 3.7 LAB L501.2000 0.9-2.4 RATIO Normal A/G 0.9 LAB L501.2200 8.5-10.1 mg/dL CA Normal 9.2 LAB L501.4100 15-37 U/L Low AST 12 LAB L501.4305 45-117 U/L Normal ALK P 69 LAB L501.4405 13-56 U/L Normal ALT 25 LAB L501.4600 0.20-1.00 mg/dL T Normal BILI 0.60 LAB L501.5300 136-145 mmol/L NA Normal 140 LAB L501.5600 3.5-5.1 mmol/L Low K 3.3 LAB L501.5900 98-107 mmol/L CL Normal 102 LAB L501.6100 21.0-32.0 mmol/L Normal CO2 30.0 LAB L501.6200 5-15 Normal GAP 8 Performed By: #### L500.4050, L501.9520 #### [facility] [address] [place], [address] THYROID STIM HORMONE Collected: 02/11/2018 Status: F Source: [place] (TSH) 4:15 PM [facility] REPOSITORY TYPE CODE TESTS RESULT OUT OF RANGE REFERENCE UNITS LAB L501.9520 0.358-3.74 uIU/mL Normal TSH 0.84 Performed By: #### L500.4050, L501.9520 #### [facility] [address] [place], [address] BILAT BRST SCREEN Observed: 02/05/2018 Status: F Source: [place] PERICO ADD-ON 7:30 AM [facility] REPOSITORY [facility] Imaging Services [address] [place] [address] Bilat Brst Screen Perico Add-On MR#: [id number] Acct: [id number] Name: ENDER ALVES Jorge Rep #: [id number] : 1935 F 82 From: Farzad Banks MD PCP: Brian Degroot MD, Chi Status: REG CLI Study: Bilat Brst Screen Perico Add-On Date of Exam: 02/05/18 Exam# [id number] Ordering Dr: Brian Degroot MD MAMMOGRAPHY - BILATERAL SCREENING REASON FOR EXAM: Female, 82 years old. Routine annual screening examination. PERTINENT HISTORY: Sister with breast cancer. TECHNIQUE: Digital bilateral breast perico (3D mammographic acquisition) in the CC and MLO projections. 2-D mediolateral oblique (MLO) and craniocaudad (CC) views of both breasts were obtained. CAD: Full Field Digital Mammography with Computer Added Detection was performed. COMPARISON: Comparison is made with prior study dated January 28, 2017 and January 25, 2016. FINDINGS: Breast Composition: There are scattered areas of fibroglandular density. There are no dominant masses or suspicious calcifications. No other significant abnormalities are identified. There has been no significant change since the prior study. BI/Bilat Brst Screen Perico Add-On IMPRESSION: Stable bilateral screening mammogram. Yearly follow-up mammogram recommended. (A) ASSESSMENT CATEGORY: BIRADS Category 1: Negative. A letter regarding these results will be sent to the patient by the facility within 30 days. Approximately 10% of breast cancers are not detected by mammography. A normal mammogram should not delay biopsy of a clinically suspicious abnormality. [id number] Electronically Signed: Farzad Banks MD at 10:25 EDT Tel [phone], Service support , CC: Brian Degroot MD Shift Boss: Signed SCREENING MAMM (CAD), Observed: 02/05/2018 Status: F Source: [place] BILAT 7:30 AM [facility] REPOSITORY [facility] Imaging Services [address] [place] [address] SCREENING MAMM (CAD), BILAT MR#: [id number] Acct: [id number] Name: ENDER ALVES Rep #: [id number] : 1935 F 82 From: Farzad Banks MD PCP: Brian Degroot MD, Chi Status: REG CLI Study: SCREENING MAMM (CAD), BILAT Date of Exam: 02/05/18 Exam# [id number] Ordering Dr: Brian Degroot MD MAMMOGRAPHY - BILATERAL SCREENING REASON FOR EXAM: Female, 82 years old. Routine annual screening examination. PERTINENT HISTORY: Sister with breast cancer. TECHNIQUE: Digital bilateral breast perico (3D mammographic acquisition) in the CC and MLO projections. 2-D mediolateral oblique (MLO) and craniocaudad (CC) views of both breasts were obtained. CAD: Full Field Digital Mammography with Computer Added Detection was performed. COMPARISON: Comparison is made with prior study dated January 28, 2017 and January 25, 2016. FINDINGS: Breast Composition: There are scattered areas of fibroglandular density. There are no dominant masses or suspicious calcifications. No other significant abnormalities are identified. There has been no significant change since the prior study. BI/SCREENING MAMM (CAD), BILAT IMPRESSION: Stable bilateral screening mammogram. Yearly follow-up mammogram recommended. (A) ASSESSMENT CATEGORY: BIRADS Category 1: Negative. A letter regarding these results will be sent to the patient by the facility within 30 days. Approximately 10% of breast cancers are not detected by mammography. A normal mammogram should not delay biopsy of a clinically suspicious abnormality. [id number] Electronically Signed: Farzad Banks MD at 10:25 EDT Tel [phone], Service support , CC: Brian Degroot MD Shift Boss: Signed KIDNEY AND BLADDER Observed: 01/15/2018 Status: F Source: [place] 2:24 PM [facility] REPOSITORY [facility] Imaging Services [address] [place] [address] Kidney and Bladder MR#: [id number] Acct: [id number] Name: ENDER ALVES Rep #: [id number] : 1935 F 82 From: Eden Lipscomb MD PCP: Brian Degroot MD, Chi Status: REG CLI Study: Kidney and Bladder Date of Exam: 01/15/18 Exam# [id number] Ordering Dr: Erendira Palacios DO STUDY: RENAL ULTRASOUND - LIMITED REASON FOR EXAM: Female, 82 years old. Renal mass TECHNIQUE: Transverse and longitudinal imaging of the kidneys was performed using real-time ultrasound. COMPARISON: October 03, 2015 FINDINGS: RIGHT KIDNEY: The right kidney is normal in location. The right kidney measures 10.7 x 5.3 x 4.8 cm. The renal cortex is normal in appearance. The renal cortex measures 1.3 cm. There is no demonstrated renal mass. There is no dilatation of the collecting system. LEFT KIDNEY: The left kidney is normal in location. The left kidney measures 10.2 x 5.6 x 5.1 cm. The renal cortex is normal in appearance. The renal cortex measures 1.4 cm. An echogenic mass is again seen in the lower pole of the left kidney measuring 7.1 x 7.0 x 8.2 mm. This previously measured 7.6 x 7.5 x 8.2 mm. There is no dilatation of the collecting system. US/Kidney and Bladder IMPRESSION: Both kidneys are normal in size and echogenicity without hydronephrosis. 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 Electronically Signed: Eden Lipscomb MD at 16:08 EDT Tel Direct: [phone], Service support , CC: Erendira Palacios DO; Brian Degroot MD Shift Boss: Signed BASIC METABOLIC Collected: 01/09/2018 Status: F Source: [place] PROFILE (BMP) 10:25 AM [facility] REPOSITORY TYPE CODE TESTS RESULT OUT OF RANGE REFERENCE UNITS LAB L501.0100 74-106 mg/dL High GLU 227 Result Comment: Glucose result greater than or equal to 200 mg/dL suggests DIABETES MELLITUS per A.D.A. criteria. Please note revised GLUCOSE reference range effective 2017. LAB L501.1000 7-18 mg/dL High BUN 19 LAB L501.1100 0.55-1.02 mg/dL High CREAT,SERUM 1.33 Result Comment: The validity of the calculated GFR AND GFRAA in patients over 70 years has not been determined. Clinical correlation is essential. LAB L501.1110 >60 mL/min Low EST GFR 41 Result Comment: Non- GFR Calc LAB L501.1115 >60 mL/min Low EST GFR - AA 49 Result Comment: GFR Calc LAB L501.1300 10-20 RATIO Normal BUN/CRE 14.3 LAB L501.2200 8.5-10.1 mg/dL Low CA 8.3 LAB L501.5300 136-145 mmol/L NA Normal 139 LAB L501.5600 3.5-5.1 mmol/L K Normal 3.5 LAB L501.5900 98-107 mmol/L CL Normal 104 LAB L501.6100 21.0-32.0 mmol/L Normal CO2 27.0 LAB L501.6200 5-15 Normal GAP 8 Performed By: #### L500.2500 #### [facility] [address] [place], [address] CHEST PA AND LATERAL Observed: 01/01/2018 Status: F Source: [place] 4:48 PM [facility] REPOSITORY [facility] Imaging Services [address] [place] [address] Chest PA and Lateral MR#: [id number] Acct: [id number] Name: ENDER ALVES Rep #: [id number] : 1935 F 82 From: Armando Meredith MD PCP: Brian Degroot MD, Chi Status: REG CLI Study: Chest PA and Lateral Date of Exam: 01/01/18 Exam# [id number] Ordering Dr: Brian Degroot MD STUDY: X-RAY CHEST REASON FOR EXAM: Female, 82 years old. Bronchitis TECHNIQUE: Frontal and lateral views of the chest COMPARISON: 01/30/2015 FINDINGS: The lungs are clear. There are no pleural effusions. There is no pneumothorax. The heart is normal in size. Again noted are sternotomy wires. There are stable old, healed right-sided rib fractures. RAD/Chest PA and Lateral IMPRESSION: No acute thoracic pathology. Electronically Signed: Armando Meredith, at 19:28 EDT Tel , Service support , CC: Brian Degroot MD Shift Boss: Signed Observed: 01/01/2018 Status: F Source: [place] RESPIRATORY PANEL 4:40 PM [facility] MOLECULAR REPOSITORY RP PANEL ADENOVIRUS Not Detected HUMAN METAPHNEUMO Not Detected INFLUENZA A Not Detected INFLUENZA A (SUBTYPE H1) Not Detected INFLUENZA A (SUBTYPE H3) Not Detected INFLUENZA B Not Detected PARAINFLUENZA 1 Not Detected PARAINFLUENZA 2 Not Detected PARAINFLUENZA 3 Not Detected PARAINFLUENZA 4 Not Detected RHINOVIRUS Not Detected RSV A Not Detected RSV B Not Detected NAAT METHOD Testing was performed using nucleic acid amplification Performed By: #### M100.638 #### [facility] [place], [address] BASIC METABOLIC Collected: 01/01/2018 Status: F Source: [place] PROFILE (BMP) 4:13 PM [facility] REPOSITORY TYPE CODE TESTS RESULT OUT OF RANGE REFERENCE UNITS LAB L501.0100 74-106 mg/dL High GLU 204 Result Comment: Glucose result greater than or equal to 200 mg/dL suggests DIABETES MELLITUS per A.D.A. criteria. Please note revised GLUCOSE reference range effective 2017. LAB L501.1000 7-18 mg/dL Normal BUN 17 LAB L501.1100 0.55-1.02 mg/dL Normal CREAT,SERUM 1.00 Result Comment: The validity of the calculated GFR AND GFRAA in patients over 70 years has not been determined. Clinical correlation is essential. LAB L501.1110 >60 mL/min Low EST GFR 57 Result Comment: Non- GFR Calc LAB L501.1115 >60 mL/min Normal EST GFR - AA 69 Result Comment: GFR Calc LAB L501.1300 10-20 RATIO Normal BUN/CRE 17.0 LAB L501.2200 8.5-10.1 mg/dL CA Normal 9.0 LAB L501.5300 136-145 mmol/L NA Normal 140 LAB L501.5600 3.5-5.1 mmol/L Low K 3.4 LAB L501.5900 98-107 mmol/L CL Normal 104 LAB L501.6100 21.0-32.0 mmol/L Normal CO2 27.0 LAB L501.6200 5-15 Normal GAP 9 Performed By: #### L500.2500 #### [facility] [place], [address] CBC W/DIFF, AUTOMATED Collected: 01/01/2018 Status: F Source: [place] 4:13 PM [facility] REPOSITORY TYPE CODE TESTS RESULT OUT OF RANGE REFERENCE UNITS LAB L100.1000 4.4-11.0 K/mm3 Normal WBC 9.1 LAB L100.1200 4.2-5.4 M/mm3 Normal RBC 4.21 LAB L100.1300 12.0-15.0 g/dl Normal HGB 12.2 LAB L100.1400 37-47 % Low HCT 36.4 LAB L100.1500 81-99 fL Normal MCV 86.5 LAB L100.1600 27.0-32.0 pg Normal MCH 29.0 LAB L100.1700 32-36 g/gl Normal MCHC 33.5 LAB L100.1810 11.6-14.6 % Normal RDW CV 13.2 LAB L100.1820 35.1-43.9 fl Normal RDW SD 40.9 LAB L100.1900 150-450 K/mm3 Normal PLT 283 LAB L100.2000 6.2-12.0 fl Normal MPV 11.4 LAB L100.2100 47-70 % Normal NEUT% 54.5 LAB L100.2200 19-41 % Normal LY% 33.6 LAB L100.2300 0-10 % Normal MONO% 6.7 LAB L100.2400 0-5 % Normal EO% 4.2 LAB L100.2500 0-1 % Normal BASO% 0.7 LAB L100.2550 0.0-0.9 % Normal IM GRAN % 0.300 Result Comment: IG% - Immature Granulocytes (promyelocytes, myelocytes and metamyelocytes) > 1% indicates that a LEFT SHIFT is Present. LAB L100.2620 2.0-7.7 X10 3/uL Normal Absolute Neut 5.0 LAB L100.2720 0.83-4.51 X10 3/ul Normal Absolute Lymph 3.06 Performed By: #### L100.0100 #### [facility] [address] [place], [address] TISSUE BIOPSY Observed: 12/02/2017 Status: F Source: [place] 10:26 AM [facility] REPOSITORY Patient: ENDER ALVES : 1935 (82/F) Acct Num: [id number] Phys: Zane CORONA,[employer] Unit Num: [id number] Loc: POLAB3 Specimen: [id number] Received: 12/02/171825 Spec Type: Tissue Bx TISSUES TISSUES: A. Skin of neck, NOS - RIGHT NECK B. Skin of knee, NOS - RIGHT BEHIND KNEE COMMENT Clinical correlation and appropriate follow up are necessary. GROSS DESCRIPTION A - Received is one container labeled with the patient's name and not further designated. The specimen consists of two irregular fragments of atkinson tissue that in aggregate measure 0.6 x 0.5 x 0.2 cm. The specimen is totally submitted in one cassette. B - Received is one container labeled with the patient's name and not further designated. The specimen consists of multiple irregular fragments of atkinson tissue ranging in size from 0.1 to 0.5 cm in greatest dimension. The larger fragment is inked, bisected and submitted along with the smaller fragments in one cassette. / AM:justice 12/03/17 TC: 4 CPT: 94994 x2, 27785 x2 HEADER OPERATION: Not noted PRE-OP DIAGNOSIS: L98.9 TISSUE SUBMITTED: A. Right neck, B. Right, behind knee MICROSCOPIC DESCRIPTION Slides are reviewed. MICROSCOPIC DIAGNOSIS A. Right neck, excisional biopsy: Seborrheic keratosis. Squamous papilloma. Special stain for fungi is negative for organisms; matched control is appropriate. B. Right, behind knee lesion, biopsy: Superficial portion of verrucous keratosis, suggestive of verruca vulgaris. Special stain for fungi is negative for organisms; matched control is appropriate. SJ:justice 12/04/17 Signed Seth Dickens 12/04/17 <signature on file> Performed By: #### PTISS #### [facility] [address] [place], [place], [address] CBC W/DIFF, AUTOMATED Collected: 11/26/2017 Status: F Source: [place] 2:58 PM [facility] REPOSITORY TYPE CODE TESTS RESULT OUT OF RANGE REFERENCE UNITS LAB L100.1000 4.4-11.0 K/mm3 Normal WBC 9.1 LAB L100.1200 4.2-5.4 M/mm3 Normal RBC 4.50 LAB L100.1300 12.0-15.0 g/dl Normal HGB 13.1 LAB L100.1400 37-47 % Normal HCT 39.4 LAB L100.1500 81-99 fL Normal MCV 87.6 LAB L100.1600 27.0-32.0 pg Normal MCH 29.1 LAB L100.1700 32-36 g/gl Normal MCHC 33.2 LAB L100.1810 11.6-14.6 % Normal RDW CV 13.4 LAB L100.1820 35.1-43.9 fl Normal RDW SD 41.6 LAB L100.1900 150-450 K/mm3 Normal PLT 280 LAB L100.2000 6.2-12.0 fl Normal MPV 11.6 LAB L100.2100 47-70 % Normal NEUT% 57.0 LAB L100.2200 19-41 % Normal LY% 29.0 LAB L100.2300 0-10 % Normal MONO% 8.2 LAB L100.2400 0-5 % Normal EO% 4.8 LAB L100.2500 0-1 % Normal BASO% 0.8 LAB L100.2550 0.0-0.9 % Normal IM GRAN % 0.200 Result Comment: IG% - Immature Granulocytes (promyelocytes, myelocytes and metamyelocytes) > 1% indicates that a LEFT SHIFT is Present. LAB L100.2620 2.0-7.7 X10 3/uL Normal Absolute Neut 5.2 LAB L100.2720 0.83-4.51 X10 3/ul Normal Absolute Lymph 2.64 Performed By: #### L100.0100 #### [facility] [address] [facility] [place], [place], [address] VITAMIN D,25 HYDROXY Collected: 11/26/2017 Status: F Source: [place] 2:58 PM [facility] REPOSITORY TYPE CODE TESTS RESULT OUT OF RANGE REFERENCE UNITS LAB L506.1000 29.95-100.01 ng/mL Normal Vitamin D 30.6 25-OH Result Comment: Vitamin D 25(OH) Status Range Deficiency <20 ng/mL (50nmol/L) Insuffciency 20 - 30 ng/mL (50 - 75 nmol/L) Sufficiency 30 - 100 ng/mL (75 - 250 nmol/L) Toxicity >100 ng/mL (>250 nmol/L) Performed By: #### L506.1000 #### [facility] [address] [facility] [place], [place], [address] COMPREHENSIVE METABOLIC Collected: 11/26/2017 Status: F Source: [facility] 2:58 PM [facility] REPOSITORY TYPE CODE TESTS RESULT OUT OF RANGE REFERENCE UNITS LAB L501.0100 74-106 mg/dL High GLU 179 Result Comment: Fasting Glucose result greater than or equal to 126 mg/dL suggests DIABETES MELLITUS per A.D.A. criteria. Please note revised GLUCOSE reference range effective 2017. LAB L501.1000 7-18 mg/dL High BUN 19 LAB L501.1100 0.55-1.02 mg/dL High CREAT,SERUM 1.03 Result Comment: The validity of the calculated GFR AND GFRAA in patients over 70 years has not been determined. Clinical correlation is essential. LAB L501.1110 >60 mL/min Low EST GFR 55 Result Comment: Non- GFR Calc LAB L501.1115 >60 mL/min Normal EST GFR - AA 66 Result Comment: GFR Calc LAB L501.1300 10-20 RATIO Normal BUN/CRE 18.4 LAB L501.1500 6.4-8.2 g/dL T Normal PROT 7.2 LAB L501.1800 3.2-5.0 g/dL Normal ALB 3.6 LAB L501.1950 2.2-4.2 g/dL Normal GLOB 3.6 LAB L501.2000 0.9-2.4 RATIO Normal A/G 1.0 LAB L501.2200 8.5-10.1 mg/dL CA Normal 9.0 LAB L501.4100 15-37 U/L Low AST 12 LAB L501.4305 45-117 U/L Normal ALK P 74 LAB L501.4405 13-56 U/L Normal ALT 24 Result Comment: Please note revised ALT reference range effective 2017. LAB L501.4600 0.20-1.00 mg/dL Normal T BILI 0.50 LAB L501.5300 136-145 mmol/L Normal NA 140 LAB L501.5600 3.5-5.1 mmol/L Normal K 3.7 LAB L501.5900 98-107 mmol/L Normal CL 103 LAB L501.6100 21.0-32.0 mmol/L Normal CO2 26.0 LAB L501.6200 5-15 Normal GAP 11 Performed By: #### L500.4050, L501.9520 #### [facility] [address] [place], [address] THYROID STIM HORMONE Collected: 11/26/2017 Status: F Source: [place] (TSH) 2:58 PM [facility] REPOSITORY TYPE CODE TESTS RESULT OUT OF RANGE REFERENCE UNITS LAB L501.9520 0.358-3.74 uIU/mL Normal TSH 1.85 Performed By: #### L500.4050, L501.9520 #### [facility] [address] [place], [address] CARDIOLOGY VISIT Observed: 11/25/2017 Status: F Source: [place] REPORT 7:24 PM [facility] REPOSITORY [facility] [address] [place] [address] OFFICE VISIT Date of Service: 11/24/17 MR#: [id number] Acct: [id number] Name: ENDER ALVES Rep #: [id number] : 1935 Provider: Carol Serrano Age/Sex: 82/F Location: [facility] Status: Signed HPI HPI Details: ENDER ALVES, is a 82 F who presents to the office today for a cardiovascular follow-up. She has a history of coronary artery disease with bypass surgery in 1991. She and SVG to the diagonal, obtuse marginal of the RCA. In 2013 she had angioplasty and stenting to the obtuse marginal vessel. From a cardiac standpoint, patient is doing well. She does not have any chest discomfort/heaviness/tightness. Her exercise tolerance is stable for her age. She does not have any worsening symptoms of shortness of breath. She does not have any orthopnea. She denies PND. She does not have any symptoms of congestive heart failure. She does not have any palpitations that she is aware of. She does not have any near- syncope or syncope. She does not have any lower extremity edema. She does not have any symptoms of claudication. She is concerned about her carotid arteries. She is concerned about this because she falls asleep easily in the afternoon. She did have dizziness but she attributes that to her taking insulin shots. She has stopped her insulin and had not had any further episodes. In reviewing her medications, it appears that she is no longer taking Valsartan/HCTZ and Amlodipine. Intake Vital Signs11/24/17 Blood Pressure 142/76 11/24/17 Height 5 ft 4 in 11/24/17 Weight: 182 lb 4 oz 11/24/17 Body Mass Index (BMI) 31.2 11/24/17 Blood Pressure 152/78 Intake Visit Reasons: 6 M FU Allergies No Known Allergies Allergy (Verified 11/24/17 13:03) Medications Aspirin [Aspirin, Baby] 81 mg PO DAILY@0800 10/13/13 [History Confirmed 11/24/17] Furosemide [Lasix] 40 mg PO DAILY 10/13/13 [History Confirmed 11/24/17] Levothyroxine [Synthroid] 150 mcg PO DAILY 10/13/13 [History Confirmed 11/24/17] Potassium Chloride [Klor-Con 10] 20 meq PO DAILY 10/13/13 [History Confirmed 11/24/17] GlyBURIDE, Micro/Metformin HCl [Glucovance 2.5-500 MG Tablet] 2 tab PO BIDCM 12/21/13 [History Confirmed 11/24/17] Multivitamins,Therapeutic [Multivitamin] 1 tab PO DAILY 12/21/13 [History Confirmed 11/24/17] Nitroglycerin [Nitrostat] 0.4 mg SUBLINGUAL Q5M PRN 12/21/13 [History Confirmed 11/24/17] Maxwell-3 Fatty Acids/Fish Oil [Maxwell 3 1,000 mg Softgel] 1 ea PO BID 12/21/13 [History Confirmed 11/24/17] Ubidecarenone [Coenzyme Q10] 10 mg PO DAILY 12/21/13 [History Confirmed 11/24/17] metoprolol succinate ER 50 mg tablet,extended release 24 hr 50 mg PO DAILY #90 tab 10/14/17 [Rx Confirmed 11/24/17] isosorbide mononitrate ER 30 mg tablet,extended release 24 hr 30 mg PO QAM #90 tab 10/28/17 [Rx Confirmed 11/24/17] clopidogrel 75 mg tablet 75 mg PO DAILY #90 tab 11/10/17 [Rx Confirmed 11/24/17] ergocalciferol (vitamin D2) 50,000 unit capsule 50,000 unit PO QMONTH 11/18/17 [History Confirmed 11/24/17] atorvastatin 20 mg tablet 40 mg PO QDAY tab 11/24/17 [History Confirmed 11/24/17] Ejection fraction %: 60 to 64 PFSH Medical History CAD (coronary artery disease) (Chronic) HLD (hyperlipidemia) (Chronic) TIA (transient ischemic attack) (Chronic) Carotid bruit (Chronic) Coronary atherosclerosis of [place] coronary artery (Chronic) Hypertension (Chronic) Abnormal finding on cardiovascular stress test (Chronic) COPD (chronic obstructive pulmonary disease) (Chronic) Other residential (current) drug therapy (Chronic) Surgical History History of percutaneous transluminal coronary angioplasty (Chronic) Aortocoronary bypass status (Chronic) Family History Mother Colon cancer Social History Smoking Status: Former smoker alcohol intake: current substance use type: does not use ROS Const Const: Positive for daytime sleepiness; negative for weakness, fatigue, fever(s) or headache(s) Eyes Eyes: Negative for blind spots, loss of peripheral vision or transient loss of vision ENT ENT: Negative for headache(s), dizziness, tinnitus or Nosebleed/epistaxis Cardio Chest Pain: No Palpitations: No Edema: None Muscle aches with walking: None Resp Respiratory: Negative for SOB with activity, SOB at rest or SOB orthopnea\SOB lying down GI GI: Negative nausea, vomiting, heartburn or vomiting blood/hematemesis : Negative for hematuria Musc Musc: Negative for muscle aches/ myalgia Neuro Neuro: Negative for weakness, headache(s), dizziness, near syncope, syncope or lightheadedness Toney Hematologic/Lymphatic: Negative for easy bleeding Endo Endo: Negative for fatigue Cardiology Exam Const Appearance: cooperative, no acute distress and well developed Orientation: alert, awake and oriented x3 Head Head: normocephalic and atraumatic Mouth: moist mucous membranes Eyes General: appearance normal, both eyes and all related structures Conjunctivae: conjunctivae normal Pupils: PERRL EOM: EOM intact bilaterally Neck Neck: normal visual inspection, no lymphadenopathy and no JVD Carotids: Negative bruit Neck Mass: Negative Neck mass Chest Chest inspection: normal inspection of the chest and symmetric chest movement Auscultation: Bilateral: Clear to Auscultation Cardio Palpation: normal PMI Rate: regular rate Rhythm: regular rhythm Heart sounds: S1 normal and S2 normal; negative rub, gallop or murmur GI GI: normal to inspection, soft, no hepatosplenomegaly and bowel sounds present; negative tender Neuro General: alert, awake, oriented x3, CN's II-XI intact bilaterally and moves all extremities Extremities Pulses: Normal: Right Posterior Tibial Pulse, Left Posterior Tibial Pulse, Right Radial Pulse, Left Radial Pulse Lower Extremity Edema: None: Bilateral Psych Psychological: normal affect Supplemental Info Pharmacologic nuclear stress test in 2014 demonstrated mild inferior ischemia. She was started on medical management. Assessment AND Plan 1. Coronary artery disease involving [place] coronary artery of [place] heart without angina pectoris I25.10 Plan - VICKY Salas Stable, from a cardiac standpoint patient does not have any symptoms of angina. We recommend that they continue with current aggressive medical management and risk factor modification. 2. Essential hypertension I10 Plan - VICKY Salas Patient has stopped her valsartan, hydrochlorothiazide and amlodipine. Her blood pressures do appear adequately controlled. Do not recommend making any adjustments. 3. Pure hypercholesterolemia E78.00; E78.0 Plan - VICKY Salas Managed by primary care doctor. Will not make any adjustments at this time. Plan Detail Additional Comments - VICKY Salas In regards to patient's daytime fatigue feel that it is related to her sleep habits. Did discuss obtaining a sleep study. She declines. Also encouraged her to discuss this with her primary care doctor. Reviewed her carotid ultrasounds with patient. Do not feel that these need to be repeated. The above patient was discussed with Dr. Bonilla, he agrees with plan of care. Thank you for allowing us to participate in patient's plan of care, if you have any questions please do not hesitate to call. This note was generated using a voice recognition system and there may be incorrect words, spelling or punctuation errors that were not noted when reviewing the office note prior to saving. Follow Up 6 Months (NATURAL FABRICATOR) Coding Level of Care Code Off vis,est,level 3 Diagnoses Coronary artery disease involving [place] coronary artery of [place] heart without angina pectoris I25.10 Coronary Disease-Associated Artery/Lesion type: [place] artery [place] vs. transplanted heart: [place] heart Associated angina: without angina Essential hypertension I10 Hypertension type: essential hypertension Pure hypercholesterolemia E78.00; E78.0 Hyperlipidemia type: pure hypercholesterolemia Coding Level of Care Code Off vis,est,level 3 Diagnoses Coronary artery disease involving [place] coronary artery of [place] heart without angina pectoris I25.10 Coronary Disease-Associated Artery/Lesion type: [place] artery [place] vs. transplanted heart: [place] heart Associated angina: without angina Essential hypertension I10 Hypertension type: essential hypertension Pure hypercholesterolemia E78.00; E78.0 Hyperlipidemia type: pure hypercholesterolemia 11/24/17 1400 <Electronically signed by Carol PERRY> Date Carol PERRY 11/25/17 1924<Electronically signed by Robert Bonilla MD> Cosigner Signature: Date (if applicable) Robert Bonilla MD CC: Brian Degroot MD LIVER PROFILE Collected: 11/21/2017 Status: F Source: [place] 9:41 AM [facility] REPOSITORY Order Comment: Order Date: 05/30/17 Order Info: 0788-1 - *Hepatic Function Panel Order Info: [id number] - *Lipid Profile CC PCP Comments: 12 hours fasting, may have water. TYPE CODE TESTS RESULT OUT OF RANGE REFERENCE UNITS LAB L501.1500 6.4-8.2 g/dL Normal T PROT 7.0 LAB L501.1800 3.2-5.0 g/dL Normal ALB 3.5 LAB L501.1950 2.2-4.2 g/dL Normal GLOB 3.5 LAB L501.4100 15-37 U/L Low AST 13 LAB L501.4305 45-117 U/L Normal ALK P 72 LAB L501.4405 13-56 U/L Normal ALT 23 Result Comment: Please note revised ALT reference range effective 2017. LAB L501.4600 0.20-1.00 mg/dL Normal T BILI 0.60 LAB L501.4700 0.00-0.30 mg/dL Normal D BILI 0.12 Performed By: #### L500.3400 #### [facility] [place], [address] LIPID PROFILE Collected: 11/21/2017 Status: F Source: [place] 9:41 AM [facility] REPOSITORY Order Comment: Order Date: 05/30/17 Order Info: [id number] - *Hepatic Function Panel Order Info: [id number] - *Lipid Profile CC PCP Comments: 12 hours fasting, may have water. TYPE CODE TESTS RESULT OUT OF RANGE REFERENCE UNITS LAB L501.4900 200 mg/dL High CHOL 210 Result Comment: <200 mg/dL Desirable 200-240 mg/dL Borderline >240 mg/dL High Risk LAB L501.5000 mg/dL High TRIG 225 Result Comment: The drugs N-Acetylcysteine and Metamizole may falsely depress this assay. Serum Triglycerides Reference Interval Normal <150 mg/dL Borderline high 150 - 199 mg/dL High 200 - 499 mg/dL Very High > or = 500 mg/dL LAB L501.6400 mg/dL Low HDL 35 Result Comment: The drugs N-Acetylcysteine and Metamizole may falsely depress this assay. Reference Range HDL <40 mg/dL Low HDL Cholesterol HDL >or= 60 mg/dL High HDL Cholesterol LAB L501.6500 0-130 mg/dL Normal LDL 130 LAB L501.6600 5-40 mg/dL High VLDL 45 Performed By: #### L500.4100 #### [facility] [address] [facility] [place], [address] ALLERGIES ALLERGIES DATE TYPE / CODE NAME / CODE REACTION SEVERITY SOURCE 08/04/2018 Drug No Known Unknown [facility] Allergy/4160 Allergies/F00 Hospital 68592(SNOMED 7700473(RXNOR Repository CT) M) ENCOUNTERS ENCOUNTERS ADMIT/DISCHARGE ACCOUNT ADMITTING ENCOUNTER LOCATION SOURCE NUMBER CLASS 10/08/2018 [id number] Ambulatory [place] [address] [facility] ing:POLAB3 Repository 09/18/2018 [id number] Ambulatory [place] [address] [facility] ing:POLAB3 Repository 09/15/2018 [id number] Ambulatory [place] [address] [facility] ing:POLAB3 Repository 09/08/2018 [id number] Ambulatory [place] [address] [facility] ing:LAB Repository 09/02/2018 [id number] Ambulatory [place] [address] [facility] ing:RAD Repository 08/28/2018 [id number] Amb[facility] [place] 2 [facility] Repository 08/14/2018 [id number] Ambulatory [place] 5 [facility]RAD Repository 08/13/2018 [id number] Ambulatory [place] 6 [facility] ing:POLAB3 Repository 08/04/2018/ [id number] Lindy Nixa Ambulatory [place] 2 [place] [facility] ing:[id number]: Repository [id number]: 1 08/04/2018 [id number] Gloria Nix Ambulatory BMSBuilding:B [place] 4 [place] [facility] Repository 08/04/2018 [id number] Gloria Nix Ambulatory BMSBuilding:B [place] 7 [place] [facility] Repository 08/04/2018 [id number] Gloria Nix Ambulatory BMSBuilding:B [place] 2 [place] [facility] Repository 08/03/2018 [id number] Ambulatory [place] 0 [facility] Hospital ing:RAD Repository 07/30/2018/ [id number] Emergency [place] 6 [facility] Hospital ing:ED Repository 07/23/2018/ [id number] Ambulatory BMSBuilding:B [place] 8 2 [facility] Repository 07/22/2018 [id number] Ambulatory [place] 5 [facility]:MRI Repository 07/15/2018 [id number] Ambulatory [place] 9 [facility] ing:POLAB3 Repository 06/23/2018/ [id number] Ambulatory BMSBuilding:B [place] 8 1 [facility] Repository 06/23/2018/ [id number] Ambulatory [place] 8 1 [facility] ing:ENRoom: Repository AC11 06/12/2018 [id number] Ambulatory [place] 0 [facility] ing:LAB.FUTUR Repository E 06/11/2018 [id number] Ambulatory [place] 4 [facility] ing:POLAB3 Repository 05/28/2018 [id number] Ambulatory [place] 9 [facility] Hospital ing:POLAB3 Repository 05/11/2018/ [id number] Ambulatory BMSBuilding:B [place] 8 8 [facility] Repository 05/05/2018 [id number] Ambulatory [place] 7 [facility] Hospital ing:POLAB3 Repository 05/04/2018 [id number] Ambulatory [place] 8 [facility] Hospital ing:POLAB3 Repository 04/30/2018 [id number] Ambulatory BMSBuilding:B [place] 1 [place] [facility] 04/24/2018 [id number] Ambulatory BMSBuilding:B [place] 0 [place].[facility] Repository 04/24/2018/ [id number] Ambulatory [place] [address] [facility] ing:ENRoom: Repository AC10 04/08/2018 [id number] Ambulatory [place] 7 [facility] Hospital ing:CT Repository 04/08/2018/ [id number] Ambulatory BMSBuilding:B [place] 8 0 [facility] Repository 04/07/2018/ [id number] Emergency [place] 8 5 [facility] Hospital ing:ED Repository 04/07/2018 [id number] Ambulatory BMSBuilding:B [place] 1 [facility] Repository 04/07/2018/ [id number] Ambulatory BMSBuilding:B [place] 8 4 [facility] Repository 04/07/2018 [id number] Ambulatory [place] 9 [facility] Hospital ing:POLAB3 Repository 03/31/2018 [id number] Kel Romo Ambulatory BMSBuilding:B [place] 8 [facility] Repository 03/31/2018 [id number] Kel Romo Ambulatory BMSBuilding:B [place] 8 [facility] Repository 03/31/2018 [id number] Kel Romo Ambulatory BMSBuilding:B [place] 4 [facility] Repository 03/31/2018/ [id number] Kel Romo Inpatient [place] 8 [address] [facility] ing:PCURoom: Repository [id number]: 1 03/26/2018 [id number] Ambulatory [place] [address] [facility] ing:POLAB3 Repository 02/11/2018 [id number] Ambulatory [place] [address] [facility] ing:POLAB3 Repository 02/05/2018 [id number] Ambulatory [place] [address] [facility] ing:OPBI Repository 01/15/2018 [id number] Ambulatory [place] [address] [facility] ing:US Repository 01/09/2018 [id number] Ambulatory [place] Bra[place] [address] [facility] ing:POLAB3 Repository 01/01/2018 [id number] Ambulatory [place] Bra[place] [address] [facility] ing:POLAB3 Repository 12/02/2017 [id number] Ambulatory [place] [address] [facility] ing:POLAB3 Repository 11/26/2017 [id number] Ambulatory [place] [address] [facility] ing:POLAB3 Repository 11/24/2017/ [id number] Ambulatory BMSBuilding:B [place] 8 3 [facility] Repository 11/24/2017 [id number] Ambulatory BMSBuilding:B [place] 1 [facility] Repository 11/21/2017 [id number] Ambulatory [place] [address] [facility] ing:LAB Repository PAYERS PAYERS ENCOUNTER GUARANTOR PAYER SUBSCRIBER SOURCE 10/08/2018 ENDER Patel Primary Insurance:MMO ENDER Patel [place] [id number] MEDICAREPolicy LIVELYDOB: [facility] DRAPT Number: [id number] [id number] Repository 26688Zmc: 330) Date:8740-83-10NG [phone] ( [address] [address]CO: 10/08/2018 Secondary NOT GIVENUNK [place] Insurance:SELF PAY [facility] Number: Effective Repository Date:2018-10-08 09/18/2018 ENDER L Primary Insurance:MMO ENDER L [place] [id number] MEDICAREPolicy LIVELYDOB: Community [address] DRAPT Number: [id number] [id number] Repository 04534Zua: (330) Date:0259-06-69SG [phone] (HP) [address] [address]XR: 09/18/2018 Secondary NOT GIVENUNK [place] Insurance:SELF PAY [facility] Number: Effective Repository Date:2018-09-18 09/15/2018 ENDER Patel Primary Insurance:MMO ENDER Patel [place] [id number] MEDICAREPolicy LIVELYDOB: Community [address]LEY[address] DRAPT Number: [id number] [id number] Repository 84233Wcn: (330) Date:4869-43-61IP [phone] (HP) [address] [address]DS: 09/15/2018 Secondary NOT GIVENUNK [place] Insurance:SELF PAY [facility] Number: Effective Repository Date:2018-09-15 09/08/2018 ENDER Patel Primary Insurance:MMO ENDER [place] [id number] MEDICAREPolicy LIVELYDOB: Community [address]LEY[place] DRAPT Number: [id number] [id number] Repository 24059Tlq: (330) Date:0586-69-78GA [phone] (HP) [address] [place] [address]RM: 09/08/2018 Secondary NOT GIVENUNK [place] Insurance:SELF PAY [facility] Number: Effective Repository Date:2018-09-08 09/02/2018 ENDER L Primary Insurance:MMO ENDER [place] [id number] MEDICAREPolicy LIVELYDOB: Community [address] [address]APT Number: [id number] [id number] Repository 17005Nqh: (330) Date:7931-18-28FZ [phone] (HP) [address] [place] [address]EY: 09/02/2018 Secondary NOT GIVENUNK [place] Insurance:SELF PAY [facility] Number: Effective Repository Date:2018-09-02 08/28/2018 ENDER L Primary Insurance:MMO ENDER Patel [place] [id number] MEDICAREPolicy LIVELYDOB: Community ALEYDA DRAPT Number: [id number] [id number] Repository 09419Bpk: (330) Date:2405-92-15FR [phone] (HP) [address] [address]KS: 08/28/2018 Secondary NOT GIVENUNK [place] Insurance:SELF PAY [facility] Number: Effective Repository Date:2018-08-13 08/14/2018 ENDER L Primary Insurance:MMO ENDER Patel [place] [id number] MEDICAREPolicy LIVELYDOB: Community [address]LEY[address]APT Number: [id number] [id number] Repository 31713Aqh: (330) Date:5866-15-31BB [phone] (HP) [address] [place] [address]UA: 08/14/2018 Secondary NOT GIVENUNK [place] Insurance:SELF PAY [facility] Number: Effective Repository Date:2018-08-14 08/13/2018 ENDER L Primary Insurance:MMO ENDER L [place] [id number] MEDICAREPolicy LIVELYDOB: Community ALEYDA DRAPT Number: [id number] [id number] Repository 83021Quz: (330) Date:1300-17-47ZZ [phone] (HP) [address] [place] [address]ZU: 08/13/2018 Secondary NOT GIVENUNK [place] Insurance:SELF PAY [facility] Number: Effective Repository Date:2018-08-13 08/04/2018 ENDER L Primary Insurance:MMO ENDER L [place] [id number] MEDICAREPolicy LIVELYDOB: Community ALEYDA DRAPT Number: [id number] [id number] Repository 35028Iux: (330) Date:0430-50-78AO [phone] (HP) [address] [place] [address]EC: 08/04/2018 Secondary NOT GIVENUNK [place] Insurance:SELF PAY [facility] Number: Effective Repository Date:2018-08-04 08/04/2018 ENDER L Primary Insurance:MMO ENDER L [place] [id number] MEDICAREPolicy LIVELYDOB: Community [address] [address]APT Number: [id number] [id number] Repository 31582Qus: (330) Date:6491-94-31VH [phone] (HP) [address] [place] [address]HY: 08/04/2018 Secondary NOT GIVENUNK [place] Insurance:SELF PAY [facility] Number: Effective Repository Date:2018-08-04 08/04/2018 ENDER L Primary Insurance:MMO ENDER L [place] [id number] MEDICAREPolicy LIVELYDOB: Community [address]APT Number: [id number] [id number] Repository 11292Ywj: (330) Date:6304-01-50VL [phone] (HP) [address] [place] [address]SH: 08/04/2018 Secondary NOT GIVENUNK [place] Insurance:SELF PAY [facility] Number: Effective Repository Date:2018-08-04 08/04/2018 ENDER L Primary Insurance:MMO ENDER L [place] [id number] MEDICAREPolicy LIVELYDOB: Community [address]APT Number: [id number] [id number] Repository 69089Qyh: (330) Date:2778-15-48ZB [phone] (HP) [address] [place] [address]VN: 08/04/2018 Secondary NOT GIVENUNK [place] Insurance:SELF PAY [facility] Number: Effective Repository Date:2018-08-04 08/03/2018 ENDER L Primary Insurance:MMO ENDER L [place] [id number] MEDICAREPolicy LIVELYDOB: Community [address] DRAPT Number: [id number] [id number] Repository 88416Enw: (330) Date:1264-59-65XZ [phone] () [address], [place] [address]UD: 08/03/2018 Secondary NOT GIVENUNK [place] Insurance:SELF PAY [facility] Number: Effective Repository Date:2018-08-03 07/30/2018 ENDER L Primary Insurance:MMO ENDER L [place] [id number] MEDICAREPolicy LIVELYDOB: Community ALEY[place] DRAPT Number: [id number] [id number] Repository 95747Pmn: (330) Date:2835-55-64AQ [phone] () [place] [address]RJ: 07/30/2018 Secondary NOT GIVENUNK [place] Insurance:SELF PAY [facility] Number: Effective Repository Date:2018-07-30 07/23/2018 ENDER L Primary Insurance:MMO ENDER Patel [place] [id number] MEDICAREPolicy LIVELYDOB: Community [address] [address]APT Number: [id number] [id number] Repository 60555Pri: (330) Date:6868-58-22YU [phone] (HP) [address] [address]FG: 07/23/2018 Secondary NOT GIVENUNK [place] Insurance:SELF PAY [facility] Number: Effective Repository Date:2018-07-23 07/22/2018 ENDER L Primary Insurance:MMO ENDER L [place] [id number] MEDICAREPolicy LIVELYDOB: Community [address] [address]APT Number: [id number] [id number] Repository 70385Gjp: (330) Date:4664-78-55YU [phone] (HP) [address] [place] [address]PF: 07/22/2018 Secondary NOT GIVENUNK [place] Insurance:SELF PAY [facility] Number: Effective Repository Date:2018-07-14 07/15/2018 ENDER L Primary Insurance:MMO ENDER L [place] [id number] MEDICAREPolicy LIVELYDOB: Community [address] [address]APT Number: [id number] [id number] Repository 72918Yqx: (330) Date:7901-11-88UM [phone] (HP) [address] [place] [address]HD: 07/15/2018 Secondary NOT GIVENUNK [place] Insurance:SELF PAY [facility] Number: Effective Repository Date:2018-07-14 06/23/2018 ENDER L Primary Insurance:MMO ENDER L [place] [id number] MEDICAREPolicy LIVELYDOB: Community [address]LEY[place] DRAPT Number: [id number] [id number] Repository 11322Csn: (330) Date:4150-18-10NE [phone] (HP) [address] [place] [address]AG: 06/23/2018 Secondary NOT GIVENUNK [place] Insurance:SELF PAY [facility] Number: Effective Repository Date:2018-06-23 06/23/2018 ENDER L Primary Insurance:MMO ENDER L [place] [id number] MEDICAREPolicy LIVELYDOB: Community [address]LEY[place] [address]APT Number: [id number] [id number] Repository 96491Ovj: (330) Date:8867-82-91UL [phone] (HP) [address] [place] [address]XA: 06/23/2018 Secondary NOT GIVENUNK [place] Insurance:SELF PAY [facility] Number: Effective Repository Date:2018-05-12 06/12/2018 ENDER L Primary Insurance:MMO ENDER Patel [place] [id number] MEDICAREPolicy LIVELYDOB: Community [address]LEY[place] [address]APT Number: [id number] [id number] Repository 10256Kyk: (330) Date:4026-79-25KC [phone] (HP) [address], [place] [address]WK: 06/12/2018 Secondary NOT GIVENUNK [place] Insurance:SELF PAY [facility] Number: Effective Repository Date:2018-06-12 06/11/2018 ENDER L Primary Insurance:MMO ENDER Patel [place] [id number] MEDICAREPolicy LIVELYDOB: Community [address] [address]APT Number: [id number] [id number] Repository 90693Dmr: (330) Date:7383-96-53NX [phone] (HP) [address] [place], [place] [address]WP: 06/11/2018 Secondary NOT GIVENUNK [place] Insurance:SELF PAY [facility] Number: Effective Repository Date:2018-06-11 05/28/2018 ENDER Patel Primary Insurance:MMO ENDER Patel [place] [id number] MEDICAREPolicy LIVELYDOB: Community [address]APT Number: [id number] [id number] Repository 12857Nkh: (330) Date:1940-98-22VX [phone] (HP) [address] [place], [place] [address]WP: 05/28/2018 Secondary NOT GIVENUNK [place] Insurance:SELF PAY [facility] Number: Effective Repository Date:2018-05-28 05/11/2018 ENDER L Primary Insurance:MMO ENDER Patel [place] [id number] MEDICAREPolicy LIVELYDOB: Community [address]APT Number: [id number] [id number] Repository 48176Qbn: (330) Date:1897-66-36VC [phone] (HP) [address] [place] [address]IU: 05/11/2018 Secondary NOT GIVENUNK [place] Insurance:SELF PAY [facility] Number: Effective Repository Date:2018-05-11 05/05/2018 ENDER L Primary Insurance:MMO ENDER L [place] [id number] MEDICAREPolicy LIVELYDOB: Community LAEYDA DRAPT Number: [id number] [id number] Repository 54045Uon: (330) Date:3527-38-58KR [phone] (HP) [address] [place] [address]FY: 05/05/2018 Secondary NOT GIVENUNK [place] Insurance:SELF PAY [facility] Number: Effective Repository Date:2018-05-05 05/04/2018 ENDER L Primary Insurance:MMO ENDER L [place] [id number] MEDICAREPolicy LIVELYDOB: Community [address] [address]APT Number: [id number] [id number] Repository 86501Vho: (330) Date:5415-66-40BE [phone] () [address] [place] [address]TM: 05/04/2018 Secondary NOT GIVENUNK [place] Insurance:SELF PAY [facility] Number: Effective Repository Date:2018-05-04 04/30/2018 ENDER L Primary Insurance:MMO ENDER L [place] [id number] MEDICAREPolicy LIVELYDOB: Community [address]LEY[place] [address]APT Number: [id number] [id number] Repository 46292Geb: (330) Date:8764-85-24RY [phone] (HP) [address] [place] [address]NB: 04/30/2018 Secondary NOT GIVENUNK [place] Insurance:SELF PAY [facility] Number: Effective Repository Date:2017-11-24 04/24/2018 ENDER L Primary Insurance:MMO ENDER L [place] [id number] MEDICAREPolicy LIVELYDOB: Community [address]LEY[place] [address]APT Number: [id number] [id number] Repository 71639Uri: (330) Date:5055-46-52HJ [phone] (HP) [address], [place] [address]WU: 04/24/2018 Secondary NOT GIVENUNK [place] Insurance:SELF PAY [facility] Number: Effective Repository Date:2018-04-24 04/24/2018 ENDER Patel Primary Insurance:MMO ENDER Patel [place] [id number] MEDICAREPolicy LIVELYDOB: Community [address]APT Number: [id number] [id number] Repository 06574Cia: (330) Date:7721-86-95OK [phone] (HP) [address], [place] [address]HK: 04/24/2018 Secondary NOT GIVENUNK [place] Insurance:SELF PAY [facility] Number: Effective Repository Date:2018-04-08 04/08/2018 ENDER L Primary Insurance:MMO ENDER [place] [id number] MEDICAREPolicy LIVELYDOB: Community [address]APT Number: [id number] [id number] Repository 62539Lkn: (330) Date:4454-53-97CD [phone] (HP) [address] [place] [address]QM: 04/08/2018 Secondary NOT GIVENUNK [place] Insurance:SELF PAY [facility] Number: Effective Repository Date:2018-04-08 04/08/2018 ENDER L Primary Insurance:MMO ENDER Patel [place] [id number] MEDICAREPolicy LIVELYDOB: Community [address]APT Number: [id number] [id number] Repository 73837Ggw: (330) Date:2213-03-80IV [phone] (HP) [address] [place] [address]TJ: 04/08/2018 Secondary NOT GIVENUNK [place] Insurance:SELF PAY [facility] Number: Effective Repository Date:2018-04-08 04/07/2018 ENDER L Primary Insurance:MMO ENDER L [place] [id number] MEDICAREPolicy LIVELYDOB: Community [address]LEY[address]APT Number: [id number] [id number] Repository 98012Eum: (330) Date:8549-22-76BF [phone] (HP) [address] [place] [address]KM: 04/07/2018 Secondary NOT GIVENUNK [place] Insurance:SELF PAY [facility] Number: Effective Repository Date:2018-04-07 04/07/2018 ENDER L Primary Insurance:MMO ENDER L [place] [id number] MEDICAREPolicy LIVELYDOB: Community [address]APT Number: [id number] [id number] Repository 60439Xbo: (330) Date:7338-70-91VI [phone] (HP) [address] [place] [address]XW: 04/07/2018 Secondary NOT GIVENUNK [place] Insurance:SELF PAY [facility] Number: Effective Repository Date:2018-04-07 04/07/2018 ENDER L Primary Insurance:MMO ENDER L [place] [id number] MEDICAREPolicy LIVELYDOB: Community [address]APT Number: [id number] [id number] Repository 37353Rgi: (330) Date:6570-97-71WQ [phone] (HP) [address] [place] [address]II: 04/07/2018 Secondary NOT GIVENUNK [place] Insurance:SELF PAY [facility] Number: Effective Repository Date:2018-04-03 04/07/2018 ENDER L Primary Insurance:MMO ENDER L [place] [id number] MEDICAREPolicy LIVELYDOB: Community [address]APT Number: [id number] [id number] Repository 66675Hgg: (330) Date:7552-33-61MG [phone] (HP) [address] [place] [address]AT: 04/07/2018 Secondary NOT GIVENUNK [place] Insurance:SELF PAY [facility] Number: Effective Repository Date:2018-04-07 03/31/2018 ENDER L Primary Insurance:MMO ENDER L [place] [id number] MEDICAREPolicy LIVELYDOB: Community [address]APT Number: [id number] [id number] Repository 38884Ssp: (330) Date:3884-45-37VV [phone] (HP) [address] [place] [address]SX: 03/31/2018 Secondary NOT GIVENUNK [place] Insurance:SELF PAY [facility] Number: Effective Repository Date:2018-03-31 03/31/2018 ENDER L Primary Insurance:MMO ENDER L [place] [id number] MEDICAREPolicy LIVELYDOB: Community [address] [address]APT Number: [id number] [id number] Repository 88923Xoi: (330) Date:8743-26-05IX [phone] (HP) [address] [place] [address]ZJ: 03/31/2018 Secondary NOT GIVENUNK [place] Insurance:SELF PAY [facility] Number: Effective Repository Date:2018-03-31 03/31/2018 ENDER L Primary Insurance:MMO ENDER L [place] [id number] MEDICAREPolicy LIVELYDOB: Community [address]APT Number: [id number] [id number] Repository 28812Set: (330) Date:5630-00-08KC [phone] (HP) [address] [place] [address]EM: 03/31/2018 Secondary NOT GIVENUNK [place] Insurance:SELF PAY [facility] Number: Effective Repository Date:2018-03-31 03/31/2018 ENDER L Primary Insurance:MMO ENDER L [place] [id number] MEDICAREPolicy LIVELYDOB: Community [address]APT Number: [id number] [id number] Repository 03370Lmw: (330) Date:0156-39-63DP [phone] (HP) [address] [address]BO: 03/31/2018 Secondary NOT GIVENUNK [place] Insurance:SELF PAY [facility] Number: Effective Repository Date:2018-03-31 03/26/2018 ENDER L Primary Insurance:MMO ENDER Patel [place] [id number] MEDICAREPolicy LIVELYDOB: Community [address]APT Number: [id number] [id number] Repository 47218Jfa: (330) Date:7177-33-54LG [phone] (HP) [place], [place] [address]ZX: 03/26/2018 Secondary NOT GIVENUNK [place] Insurance:SELF PAY [facility] Number: Effective Repository Date:2018-03-26 02/11/2018 ENDER L Primary Insurance:MMO ENDER Patel [place] [id number] MEDICAREPolicy LIVELYDOB: Community [address]LEY[address]APT Number: [id number] [id number] Repository 35430Uws: Date:8783-42-47VB [phone] [place] [address] -4 (HP) [address]WZ: 02/11/2018 Secondary NOT GIVENUNK [place] Insurance:SELF PAY [facility] Number: Effective Repository Date:2018-01-13 02/05/2018 ENDER L Primary Insurance:MMO ENDER L [place] [id number] MEDICAREPolicy LIVELYDOB: Community [address]APT Number: [id number] [id number] Repository 11904Moq: Date:8635-17-54GM [phone] [place] [address] -4 (HP) [address]OD: 02/05/2018 Secondary NOT GIVENUNK [place] Insurance:SELF PAY [facility] Number: Effective Repository Date:2018-01-13 01/15/2018 ENDER L Primary Insurance:MMO ENDER L [place] [id number] MEDICAREPolicy LIVELYDOB: Community [address]LEY[address]APT Number: [id number] [id number] Repository 96495Uto: (330) Date:6057-43-26KJ [phone] (HP) [address] [place] [address]QJ: 01/15/2018 Secondary NOT GIVENUNK [place] Insurance:SELF PAY [facility] Number: Effective Repository Date:2018-01-14 01/09/2018 ENDER L Primary Insurance:MMO ENDER L [place] [id number] MEDICAREPolicy LIVELYDOB: Community [address]LEYDA [address]APT Number: [id number] [id number] Repository 39894Eqx: (330) Date:5004-45-10WG [phone] (HP) [address] [place] [address]RP: 01/09/2018 Secondary NOT GIVENUNK [place] Insurance:SELF PAY [facility] Number: Effective Repository Date:2018-01-09 01/01/2018 ENDER L Primary Insurance:MMO ENDER L [place] [id number] MEDICAREPolicy LIVELYDOB: Community [address]APT Number: [id number] [id number] Repository 17247Wnt: (330) Date:4995-02-43ZU [phone] (HP) [address] [place] [address]BS: 01/01/2018 Secondary NOT GIVENUNK [place] Insurance:SELF PAY [facility] Number: Effective Repository Date:2018-01-01 12/02/2017 ENDER Patel Primary Insurance:MMO ENDER Patel [place] [id number] MEDICAREPolicy LIVELYDOB: Community [address]APT Number: [id number] [id number] Repository 38538Hmk: (330) Date:9691-06-13EA [phone] (HP) [place], [place] [address]OZ: 12/02/2017 Secondary NOT GIVENUNK [place] Insurance:SELF PAY [facility] Number: Effective Repository Date:2017-12-02 11/26/2017 ENDER Patel Primary Insurance:MMO ENDER Patel [place] [id number] MEDICAREPolicy LIVELYDOB: Community [address]APT Number: [id number] [id number] Repository 08034Kpp: (330) Date:0726-20-82FV [phone] (HP) [address] [place], [place] [address]WP: 11/26/2017 Secondary NOT GIVENUNK [place] [facility] [facility] Number: Effective Repository Date:2017-11-26 11/24/2017 ENDER Patel Primary Insurance:MMO ENDER Patel [id number] MEDICAREPolicy LIVELYDOB: Community ALEYDA DRAPT Number: [id number] [id number] Repository [address]Btx: (330) Date:[id number] [phone] (HP) [address] [place] [id number]: 11/24/2017 Secondary NOT GIVENUNK [place] Insurance:SELF PAY [facility] Number: Effective Repository Date:2017-09-04 11/24/2017 Ender Patel Primary Insurance:MMO Ender Patel [place] [id number] MEDICAREPolicy LivelyDOB: Community Aleyda [address] Number: [id number] [id number] Repository [address]Wyt: Date:1149-75-47GX [phone] [place] [address] 2 () [phone]: 11/24/2017 Secondary NOT GIVENUNK [place] Insurance:SELF PAY [facility] Date:2017-11-24 11/21/2017 Ender L Primary Insurance[place] [place] [id number] MEDICAREPolicy LivelyDOB[facility] [address] Number: [id number] [id number] Repository [address]Xxj: Date:8906-48-84XH [phone] [place] [address] 2 () [phone]: 11/21/2017 Secondary NOT GIVENUNK [place] Insurance:SELF PAY [facility] Number: Effective Repository Date:2017-11-21
== END ==
PROVIDERS: Family Provider Family Medicine Geriatric Medicine; PCP Family Medicine Geriatric Medicine; Referring Provider Family Medicine Geriatric Medicine; Visit Provider Family Medicine Geriatric Medicine
DX: M35.3 Polymyalgia rheumatica (principal); R60.9 Edema, unspecified
CPT/HCPCS: 36415; 80048; 85025; 85652; 86140

== ENCOUNTER → 2018-09-15 13:45 | Outpatient (CLI) | payer MEDICARE, SELFPAY ==
[2018-09-15 17:02] LABS: Hematocrit 32.4 % (37-47); Hemoglobin 10.2 g/dl (12.0-15.0); Mean Corp Hgb Conc 31.5 g/gl (32-36); Mean Corpuscular Hgb 27.9 pg (27.0-32.0); Mean Corpuscular Volume 88.8 fL (81-99); Mean Platelet Vol. 11.4 fl (6.2-12.0); Platelet Count 365 K/mm3 (150-450); RBC Distribution Width CV 15.7 % (11.6-14.6); RBC Distribution Width SD 50.1 fl (35.1-43.9); Red Blood Count 3.65 M/mm3 (4.2-5.4); White Blood Count 13.4 K/mm3 (4.4-11.0)
[2018-09-15 17:04] LABS: Scan Indicated on CBC? Y/N NO
[2018-09-15 17:17] LABS: Ferritin 62 ng/mL (8-252); Iron 52 ug/dL (50-170); Iron Binding Capacity,Total 296 ug/dL (250-450); Vitamin B12 404 pg/mL (211-911)
[2018-09-17 16:08] LABS: Folate, Hemolysate Test 417.6 ng/mL (Not Estab.); Folate, RBC (Hct) Test 31.8 % (34.0-46.6)
[2018-09-17 16:29] LABS: Folates, RBC Test 1313 ng/mL (>498)
--- OUTSIDE RECORDS SUMMARY | 2018-12-18 01:13 | XMS RPT_ITS ---
:1935 Author Organization OHIP Support Name Relationship Address Phone LORNA ALVES(POA) Unavailable [address] + [place] [address] [place], KURT (POA) Unavailable . + [place] [address] R Unavailable Unavailable Unavailable LIVELY LORNA(POA) Unavailable [address] + [place] [address] [place], [place]T (POA) Unavailable Unavailable + [place] [address] R Unavailable Unavailable Unavailable LIVELY, LORNA(POA) Unavailable [address] + [place] [address] [place], [place]T (POA) Unavailable Unavailable + [place] [address] R Unavailable Unavailable Unavailable LIVELY, LORNA(POA) Unavailable [address] + [place] [address] [place], [place]T (POA) Unavailable Unavailable + [place] [address] R Unavailable Unavailable Unavailable LIVELY, LORNA(POA) Unavailable [address] + [place] [address] [place], [place]T (POA) Unavailable Unavailable + [place] [address] R Unavailable Unavailable Unavailable LIVELY, LORNA(POA) Unavailable [address] + [place] [address] [place], [place]T (POA) Unavailable Unavailable + [place] [address] R Unavailable Unavailable Unavailable LIVELY, LORNA(POA) Unavailable [address] + [place] [address] [place], [place]T (POA) Unavailable Unavailable + [place] [address] R Unavailable Unavailable Unavailable LIVELY, LORNA(POA) Unavailable [address] + [place] [address] [place], [place]T (POA) Unavailable Unavailable + [place] [address] R Unavailable Unavailable Unavailable LIVELY, LORNA(POA) Unavailable [address] + [place] [address] [place], [place]T (POA) Unavailable Unavailable + [place] [address] R Unavailable Unavailable Unavailable LIVELY, LORNA(POA) Unavailable [address] + [place] [address] [place], [place]T (POA) Unavailable Unavailable + [place] [address] R Unavailable Unavailable Unavailable LIVELY, LORNA(POA) Unavailable [address] + [place] [address] [place], K[place]T (POA) Unavailable Unavailable + [place] [address] R Unavailable Unavailable Unavailable LIVELY, LORNA(POA) Unavailable [address] + [place] [address] [place], K[place]T (POA) Unavailable Unavailable + [place] [address] R Unavailable Unavailable Unavailable LIVELY, LORNA(POA) Unavailable [address] + [place] [address] [place], KURT (POA) Unavailable Unavailable + [place] [address] R Unavailable Unavailable Unavailable LIVELY, LORNA(POA) Unavailable [address] + [place] [address] [place], [place]T (POA) Unavailable . + [place] [address] R Unavailable Unavailable Unavailable LIVELY, LORNA(POA) Unavailable [address] + [place] [address] [place], [place]T (POA) Unavailable . + [place] [address] R Unavailable Unavailable Unavailable LIVELY, LORNA(POA) Unavailable [address] + [place] [address] [place], [place]T (POA) Unavailable Unavailable + [place] [address] R Unavailable Unavailable Unavailable LIVELY, LORNA(POA) Unavailable [address] + [place] [address] [place], K[place]T (POA) Unavailable Unavailable + [place] [address] R Unavailable Unavailable Unavailable LIVELY, LORNA(POA) Unavailable [address] + [place] [address] [place], KURT (POA) Unavailable Unavailable + [place] [address] R Unavailable Unavailable Unavailable LIVELY, LORNA(POA) Unavailable [address] + [place] [address] [place], KURT (POA) Unavailable Unavailable + [place] [address] R Unavailable Unavailable Unavailable LIVELY, LORNA(POA) Unavailable [address] + [place] [address] [place], KURT (POA) Unavailable . + [place] [address] R Unavailable Unavailable Unavailable LIVELY, LORNA(POA) Unavailable [address] + [place] [address] [place], KURT (POA) Unavailable . + [place] [address] R Unavailable Unavailable Unavailable LIVELY, LORNA(POA) Unavailable [address] + [place] [address] [place], KURT (POA) Unavailable . + [place] [address] R Unavailable Unavailable Unavailable LIVELY, LORNA(POA) Unavailable [address] + [place] [address] [place], KURT (POA) Unavailable . + [place] [address] R Unavailable Unavailable Unavailable LIVELY, LORNA(POA) Unavailable [address] + [place] [address] [place], [place]T (POA) Unavailable Unavailable + [place] [address] R Unavailable Unavailable Unavailable LIVELY, LORNA(POA) Unavailable [address] + [place] [address] [place], K[place]T (POA) Unavailable Unavailable + [place] [address] R Unavailable Unavailable Unavailable LIVELY, LORNA(POA) Unavailable [address] + [place] [address] [place], [place]T (POA) Unavailable 0 + [place] [address] R Unavailable Unavailable Unavailable LIVELY, LORNA(POA) Unavailable [address] + [place] [address] [place], KURT (POA) Unavailable Unavailable + [place] [address] R Unavailable Unavailable Unavailable LIVELY, LORNA(POA) Unavailable [address] + [place] [address] [place], [place]T (POA) Unavailable Unavailable + [place] [address] R Unavailable Unavailable Unavailable LIVELY, LORNA(POA) Unavailable [address] + [place] [address] [place], KURT (POA) Unavailable 0 + [place] [address] R Unavailable Unavailable Unavailable LIVELY, LORNA(POA) Unavailable [address] + [place] [address] [place], KURT (POA) Unavailable 0 + [place] [address] R Unavailable Unavailable Unavailable LIVELY, LORNA(POA) Unavailable [address] + [place] [address] [place], KURT (POA) Unavailable Unavailable + R Unavailable Unavailable Unavailable LIVELY, LORNA Unavailable [address] + [place] [address] R Unavailable Unavailable Unavailable LIVELY, LORNA Unavailable [address] + [place] [address] R Unavailable Unavailable Unavailable LIVELY, LORNA Unavailable [address] + [place] [address] R Unavailable Unavailable Unavailable LIVELY, LORNA(POA) Unavailable [address] + [place] [address] [place], KURT (POA) Unavailable Unavailable + [place] [address] R Unavailable Unavailable Unavailable LIVELY, LORNA(POA) Unavailable [address] + [place] [address] [place], KURT (POA) Unavailable Unavailable + [place] [address] R Unavailable Unavailable Unavailable LIVELY, LORNA(POA) Unavailable [address] + [place] [address] [place], KURT (POA) Unavailable Unavailable + [place] [address] R Unavailable Unavailable Unavailable LIVELY, LORNA(POA) Unavailable [address] + [place] [address] [place], [place]URT (POA) Unavailable Unavailable + [place] [address] R Unavailable Unavailable Unavailable LIVELY, LORNA Unavailable [address] + [place] [address] R Unavailable Unavailable Unavailable LIVELY, LORNA Unavailable [address] + [place] [address] R Unavailable Unavailable Unavailable LIVELY, LORNA Unavailable [address] + [place] [address] R Unavailable Unavailable Unavailable LIVELY, LORNA Unavailable [address] + [place] [address] R Unavailable Unavailable Unavailable LIVELY, LORNA Unavailable [address] + [place] [address] R Unavailable Unavailable Unavailable LIVELY, LORNA Unavailable [address] + [place] [address] R Unavailable Unavailable Unavailable LIVELY, LORNA Unavailable [address] + [place] [address] R Unavailable Unavailable Unavailable LIVELY, LORNA Unavailable [address] + [place] [address] R Unavailable Unavailable Unavailable LIVELY, LORNA Unavailable [address] + [place] [address] R Unavailable Unavailable Unavailable R Unavailable Unavailable Unavailable ADELINE DAI Unavailable [address] [facility] + [place] [address] R Unavailable Unavailable Unavailable WALLET, LORNA Unavailable [address] + [place] [address] ADELINE DAI Unavailable [address] [facility] + [place] [address] R Unavailable Unavailable Unavailable WALLET, LORNA Unavailable [address] + [place] [address] Care Team Providers Name Role Phone Robert Bonilla Attending Unavailable Robert Bonilla Referring Unavailable Zane, Brian Chi Primary Care Unavailable Dianna Schaeffer Attending Unavailable Carol Serrano Attending Unavailable Zaen, Brian Chi Referring Unavailable Zane, Brian Chi [...] Primary Care Unavailable Erendira Palacios Attending Unavailable Erendira Palacios Referring Unavailable Zane, Brian Chi Primary Care Unavailable Zane, Brian Chi Attending Unavailable Zane, Brian Chi Referring Unavailable Zane, Brian Chi Primary Care Unavailable Zane, Brian Chi Attending Unavailable Zane, Brian Chi Primary Care Unavailable Zane, Brian Chi Primary Care Unavailable Clarissa Kel Admitting Unavailable Catrachito Oden Attending Unavailable Jopperi, Kel Admitting Unavailable Zane, Brian Chi Primary Care Unavailable JoSmith catic Consulting Unavailable JopperiSmithic Attending Unavailable Jopperi, Kel Admitting Unavailable Zane, Brian Chi Primary Care Unavailable Catrachito Oden Consulting Unavailable Catrachito Oden Attending Unavailable Kaylaeri, Kel Admitting Unavailable Zane, Brian Chi Primary Care Unavailable Catrachito Oden Consulting Unavailable Catrachito Oedn Attending Unavailable Zane, Brian Chi Attending Unavailable Zane, Brian Chi Primary Care Unavailable Raymond Felder Attending Unavailable Zane, Brian Chi Referring Unavailable Zane, Brian Chi Primary Care Unavailable Luz Maria Stratton Attending Unavailable Zane, Brian Chi Primary Care Unavailable Owen Cristina Attending Unavailable IreneRobert Attending Unavailable Zane, Brian Chi Referring Unavailable IreneTelloWest [place] Attending Unavailable Zane, Brian Chi Referring Unavailable Zane, Brian Chi Attending Unavailable Zane, Brian Chi Referring Unavailable Zane, Brian Chi Primary Care Unavailable Raymond Felder Attending Unavailable Raymond Felder Referring Unavailable Zane, Brian Chi Primary Care Unavailable Raymond Felder Attending Unavailable Raymond Felder [...] Primary Care Unavailable Raymond Felder Attending Unavailable Raymond Felder Referring Unavailable Zane, Brian Chi Primary Care Unavailable Raymond Felder Attending Unavailable Zane, Brian Chi Attending Unavailable Zane, Brian Chi Primary Care Unavailable Zane, Brian Chi Attending Unavailable Zane, Brian Chi Referring Unavailable Zane, Brian Chi Primary Care Unavailable Raymond Felder Attending Unavailable Zane, Brian Chi Referring Unavailable Zane, Brian Chi Primary Care Unavailable Owen Cintron Attending Unavailable Basali, Ayman Attending Unavailable Basali, Ayman [...] N18.3 - Chronic Zane, Brian Chi Active [facility] kidney disease, Community stage 3 (moderate) / [...] M10.9 - Gout, Zane, Brian Chi [facility] unspecified / Community M10.9(ICD-10) Hospital Repository 09/02/2018 Unknown M79.609 - Pain in Zane, Brian Chi Active [place] unspecified limb / Community M79.609(ICD-10) Hospital Repository 10/21/2018 Unknown M54.9 - Dorsalgia, Basali, Ayman Active [facility] unspecified / Community M54.9(ICD-10) Hospital Repository 10/21/2018 Unknown M54.2 - Cervicalgia Basali, Ayman Active [facility] / M54.2(ICD-10) Community Hospital Repository 10/21/2018 Unknown M25.519 - Pain in Basali, Ayman [...] R60.9 - Edema, Zane, Brian Chi Active [facility] unspecified / Community R60.9(ICD-10) Hospital Repository 05/28/2018 Unknown R53.83 - Other Zane, Brian Chi [facility] fatigue / Community R53.83(ICD-10) Hospital Repository 05/04/2018 Unknown R50.9 - Fever, Zane, Brian Chi Active [place] unspecified / Community R50.9(ICD-10) Hospital Repository 04/24/2018 Unknown K20.9 - Esophagitis, Bradford, Active [facility] unspecified / [facility] Community K20.9(ICD-10) Hospital Repository 04/08/2018 Unknown 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, 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 / Hospital Z95.1(ICD-10) Repository 04/08/2018 Unknown Z95.5 - Presence of Irene, [place] Active [facility] coronary angioplasty Community implant and graft / [...] R06.02 - Shortness Zane, Brian Chi Active [facility] of breath / Community R06.02(ICD-10) Hospital Repository 01/01/2018 Unknown J40 - Bronchitis, Zane, Brian Chi Active [facility] not specified as Community acute or chronic / Hospital J40(ICD-10) Repository 12/02/2017 Unknown L98.9 - Disorder of Zane, Brian Chi Active [facility] the skin and Community subcutaneous tissue, Hospital unspecified / Repository L98.9(ICD-10) 11/26/2017 Unknown N18.2 - Chronic Zane, Brian Chi [facility] kidney disease, Community stage 2 (mild) / Hospital N18.2(ICD-10) Repository 11/21/2017 Unknown E78.5 - Irene, Robert Active [facility] Hyperlipidemia, Community unspecified / Hospital E78.5(ICD-10) Repository 11/21/2017 Unknown Z79.899 - Other long Irene, [place] Active [facility] term (current) drug Community therapy / Hospital Z79.899(ICD-10) Repository PROCEDURES PROCEDURES No Procedure Records FoundRESULTS RESULTS PT D/C SUMMARY (1) Observed: 10/21/2018 Status: F Source: [place] 2:19 PM [facility] REPOSITORY [facility] [address] [place] [address] / REHABILITATION SERVICES DISCHARGE SUMMARY MR#: [id number] Acct: [id number] Name: ENDER ALVES Rep #: [id number] : 1935 83 From: Wilfredo Chavez PT, Cert. MDT, OCS Referring Dr.: Priyanka Mccartney MD Status: REG RCR Insurance: MMO MEDICARE SELF PAY INSURANCE HP - PT D/C Summary It has been my pleasure to treat ENDER ALVES under orders from Priyanka Mccartney MD, for the diagnosis of BACK PAIN,NECK PAIN ,SHOULDER PAIN for a total of 3 visit(s). Discharge Date: 08/28/18 Please see the following information for a summary of their discharge status. - Subjective Subjective: i think i over did it yesterday hanging [place] lights. Both shoudlers are bothering me. Pt reports she may not come back after today due to the cost and her being able to do hep alone. - Pain bilat shoudlers Pain Intensity (Out of 10): 4 - Overall Improvement % Improvement: 50 - Objective Objective/Function: PT LUIGI TX WELL . INDEPENDANT WITH HEP - Goals Goal 1:: Independant with HEP Goal Progress: Goal Met Goal 2:: Patient to improve posture for ADL'S Goal Progress: Progressing Goal 3:: Patient to decrease pain for function with min episodes of pain 75% to improve function. Goal Progress: Progressing Goal 4:: Patient improve ablity to perform ADL'S and housework tasks with min limiations Goal Progress: Progressing Goal 5:: Patient to improve MONICA back disablity score by 5points to improve QOL. Goal Progress: Progressing - Plan Plan: PT WILL BE D/C AT THIS TIME- DUE TO CO-PAYS AND FEELING LIKE SHE CAN DO EX'S AT HOME. - D/C Information Discharge Comments: HEP If there are questions or concerns regarding this patient's physical therapy, please feel free to call me at [phone]. Thank you for the referral of this patient. Sincerely, Wilfredo Chavez, PT, Cert MDT, OCS <Electronically signed by Wilfredo Chavez PT Cert. MDT, OCS> 10/21/18 1419 CC: Priyanka Mccartney MD; Brian Degroot MD CHRISTOPHER Signed BASIC METABOLIC Collected: 10/08/2018 Status: F Source: [place] PROFILE (BMP) 2:55 PM [facility] REPOSITORY TYPE CODE TESTS RESULT OUT OF [...] Performed By: #### L500.2500, L501.1400, L501.6710 #### [facility] [address] [place], [place], [address] URIC ACID Collected: 10/08/2018 Status: F Source: [place] 2:55 PM [facility] REPOSITORY TYPE CODE TESTS RESULT OUT OF RANGE REFERENCE UNITS LAB L501.1400 2.6-6.0 mg/dL Normal URIC 4.9 Result Comment: The drugs N-Acetylcysteine and Metamizole may falsely depress this assay. Performed By: #### L500.2500, L501.1400, L501.6710 #### [facility] [address] [place], [address] CRP Collected: 10/08/2018 Status: F Source: [place] 2:55 PM [facility] REPOSITORY TYPE CODE TESTS RESULT OUT OF RANGE REFERENCE UNITS LAB L501.6710 0.0-3.0 mg/L High 19.30 C-REACTIVE PROT Result Comment: C-Reactive Protein (CRP) provides useful information for the diagnosis, therapy and monitoring of inflammatory processes and associated diseases. For the evaluation of Relative Risk for Cardiovascular Disease, a High Sensitivity CRP (HSCRP) should be ordered. Performed By: #### L500.2500, L501.1400, L501.6710 #### [facility] [address] [place], [address] CBC W/DIFF, AUTOMATED Collected: 10/08/2018 Status: F Source: [place] 2:55 PM [facility] REPOSITORY TYPE CODE TESTS RESULT OUT OF [...] 4.38 Performed By: #### L100.0100, L101.9900 #### [facility] [address] [place], [address] ERYTHROCYTE SED RATE Collected: 10/08/2018 Status: F Source: [place] 2:55 PM [facility] REPOSITORY TYPE CODE TESTS RESULT OUT OF RANGE REFERENCE UNITS LAB L102.0000 0-30 mm/hr High SED RATE 44 Performed By: #### L100.0100, L101.9900 #### [facility] [address] [place], [address] ABD INC DECUB Observed: 09/18/2018 Status: F Source: [place] AND/OR ERECT 10:43 AM [facility] REPOSITORY [facility] Imaging Services [address] [place] [address] Abd Inc Decub and/or Erect MR#: [id number] Acct: [id number] Name: ENDER ALVES Rep #: [id number] : 1935 F 82 From: Jovanny Palacios MD PCP: Zane CORONA,Brian Kowalski Status: REG CLI Study: Abd Inc Decub and/or Erect Date of Exam: 09/18/18 Exam# [id number] Ordering Dr: Brian Degroot MD STUDY: X-RAY [...] Service support , CC: Brian Degroot MD Marine Designer: Signed Observed: 09/18/2018 Status: F Source: [place] CULTURE, URINE 9:54 AM [facility] REPOSITORY Urine Culture ORGANISM 1: Klebsiella pneumoniae sp pneum [place] Count >100,000 Klebsiella pneumoniae sp pneum: REACTION [...] <=20 S (NF) indicates non-formulary drug at [facility]. Approval by Infectious Disease Specialist required before non-formulary drugs may be ordered and/or dispensed. Performed By: #### M100.0650 #### [facility] [address] [place], [address] BASIC METABOLIC Collected: 09/18/2018 Status: F Source: [place] PROFILE (BMP) 9:15 AM [facility] REPOSITORY TYPE CODE TESTS RESULT OUT OF [...] GAP 12 Performed By: #### L500.2500 #### [facility] [place], [address] CBC W/DIFF, AUTOMATED Collected: 09/18/2018 Status: F Source: [place] 9:15 AM [facility] REPOSITORY TYPE CODE TESTS RESULT OUT OF [...] LYMPH RARE Performed By: #### L100.0100 #### [facility] [address] [place], [place], [address] Observed: 09/18/2018 Status: F Source: [place] ENTERIC PATHOGEN 9:15 AM [facility] PANEL STOOL REPOSITORY EP PANEL STOOL Not [...] Not Detected Performed By: #### M100.637 #### [facility] [address] [place], [place], [address] CBC-COMPLETE BLOOD CNT Collected: 09/15/2018 Status: F Source: [place] NO DIFF 1:47 PM [facility] REPOSITORY TYPE CODE TESTS RESULT OUT OF [...] MPV 11.4 Performed By: #### L100.0500 #### [facility] [address] [place], [address] VITAMIN B12 Collected: 09/15/2018 Status: F Source: [place] 1:47 PM [facility] REPOSITORY TYPE CODE TESTS RESULT OUT OF RANGE REFERENCE UNITS LAB L503.0105 211-911 pg/mL Normal Vitamin B12 404 Performed By: #### L503.0105 #### [facility] [address] [place], [address] IRON BINDING Collected: 09/15/2018 Status: F Source: [place] CAPACITY,TOTAL 1:47 PM [facility] REPOSITORY TYPE CODE TESTS RESULT OUT OF RANGE REFERENCE UNITS LAB L503.6075 250-450 ug/dL Normal TIBC 296 Performed By: #### L503.6075, L503.6150, L503.6550 #### [facility] [address] [place], [address] IRON Collected: 09/15/2018 Status: F Source: [place] 1:47 PM [facility] REPOSITORY TYPE CODE TESTS RESULT OUT OF RANGE REFERENCE UNITS LAB L503.6150 50-170 ug/dL Normal IRON 52 Performed By: #### L503.6075, L503.6150, L503.6550 #### [facility] [address] [place], [place], [address] FERRITIN Collected: 09/15/2018 Status: F Source: [place] 1:47 PM [facility] REPOSITORY TYPE CODE TESTS RESULT OUT OF RANGE REFERENCE UNITS LAB L503.6550 8-252 ng/mL Normal FERRITIN 62 Performed By: #### L503.6075, L503.6150, L503.6550 #### [facility] [address] [place], [place], [address] FOLATES, RBC Collected: 09/15/2018 Status: F Source: [place] 1:47 PM [facility] REPOSITORY TYPE CODE TESTS RESULT OUT OF RANGE REFERENCE UNITS LAB L3100.1735 Not Estab. ng/mL Normal 417.6 FOL,HEMOLYSA TE LAB L3100.1740 34.0-46.6 % Low 31.8 FOLR,HEMATOC RIT LAB L3100.1745 >498 ng/mL Normal FOLATE, 1313 RBC Result Comment: Performed at: - [facility] [place] [id number] [employer] Helper Pastry: Alejandro Wolff PhD, Phone: [phone] Performed By: #### L3100.1725 #### [facility] (refer to report for specific site) refer to report for address and phone number ERYTHROCYTE SED RATE Collected: 09/08/2018 Status: F Source: [place] 5:46 PM [facility] REPOSITORY TYPE CODE TESTS RESULT OUT OF RANGE REFERENCE UNITS LAB L102.0000 0-30 mm/hr Normal SED RATE 15 Performed By: #### L101.9900, L100.0100 #### [facility] [address] [place], [place], [address] CBC W/DIFF, AUTOMATED Collected: 09/08/2018 Status: C Source: [place] 5:46 PM [facility] REPOSITORY TYPE CODE TESTS RESULT OUT OF [...] 1440 PATH REV previously reported as: January Performed By: #### L101.9900, L100.0100 #### [facility] [place], [address] BASIC METABOLIC Collected: 09/08/2018 Status: F Source: [place] PROFILE (BMP) 5:46 PM [facility] REPOSITORY TYPE CODE TESTS RESULT OUT OF [...] 9 Performed By: #### L500.2500, L501.6710 #### [facility] [address] [place], [address] CRP Collected: 09/08/2018 Status: F Source: [place] 5:46 PM [facility] REPOSITORY TYPE CODE TESTS RESULT OUT OF RANGE REFERENCE UNITS LAB L501.6710 0.0-3.0 mg/L Normal < 2.90 C-REACTIVE PROT Result Comment: C-Reactive Protein (CRP) provides useful information for the diagnosis, therapy and monitoring of inflammatory processes and associated diseases. For the evaluation of Relative Risk for Cardiovascular Disease, a High Sensitivity CRP (HSCRP) should be ordered. Performed By: #### L500.2500, L501.6710 #### [facility] [address] [place], [address] HAND MIN 3 VIEWS Observed: 09/02/2018 Status: F Source: [place] 10:27 AM [facility] REPOSITORY [facility] Imaging Services [address] [place] [address] Hand Min 3 Views MR#: [id number] Acct: [id number] Name: ENDER ALVES Rep #: [id number] : 1935 F 82 From: Farzad Banks MD PCP: Zane CORONA,Brian Chi Status: REG CLI Study: Hand Min 3 Views Date of Exam: 09/02/18 Exam# [id number] Ordering Dr: Brian Degroot MD STUDY: X-RAY [...] Farzad Banks MD at 11:03 EST Tel [phone], Service support , CC: Brian Degroot MD Marine Designer: Signed BASIC METABOLIC Collected: 09/02/2018 Status: F Source: [place] PROFILE (BMP) 10:17 AM [facility] REPOSITORY TYPE CODE TESTS RESULT OUT OF [...] Performed By: #### L500.2500, L501.1400, L501.6710 #### [facility] [address] [place], [place], [id number] URIC ACID Collected: 09/02/2018 Status: F Source: [place] 10:17 AM [facility] REPOSITORY TYPE CODE TESTS RESULT OUT OF RANGE REFERENCE UNITS LAB L501.1400 2.6-6.0 mg/dL Normal URIC 4.6 Result Comment: The drugs N-Acetylcysteine and Metamizole may falsely depress this assay. Performed By: #### L500.2500, L501.1400, L501.6710 #### [facility] [address] [place], [place], [address] CRP Collected: 09/02/2018 Status: F Source: [place] 10:17 AM [facility] REPOSITORY TYPE CODE TESTS RESULT OUT OF RANGE REFERENCE UNITS LAB L501.6710 0.0-3.0 mg/L High 52.30 C-REACTIVE PROT Result Comment: C-Reactive Protein (CRP) provides useful information for the diagnosis, therapy and monitoring of inflammatory processes and associated diseases. For the evaluation of Relative Risk for Cardiovascular Disease, a High Sensitivity CRP (HSCRP) should be ordered. Performed By: #### L500.2500, L501.1400, L501.6710 #### [facility] [address] [place], [address] CBC W/DIFF, AUTOMATED Collected: 09/02/2018 Status: F Source: [place] 10:17 AM [facility] REPOSITORY TYPE CODE TESTS RESULT OUT OF [...] 2.42 Performed By: #### L100.0100, L101.9900 #### [facility] [address] [place], [address] ERYTHROCYTE SED RATE Collected: 09/02/2018 Status: F Source: [place] 10:17 AM [facility] REPOSITORY TYPE CODE TESTS RESULT OUT OF RANGE REFERENCE UNITS LAB L102.0000 0-30 mm/hr High SED RATE 102 Performed By: #### L100.0100, L101.9900 #### [facility] [address] [place], [address] PTHIN Collected: 09/02/2018 Status: F Source: [place] 10:17 AM [facility] REPOSITORY Order Comment: DR PALACIOS ORDERED PTH ONLY TYPE CODE TESTS RESULT OUT OF RANGE REFERENCE UNITS LAB L509.1000 18.4-80.1 pg/mL Normal PTHIN 20.9 Performed By: #### L509.1000 #### [facility] [address] [place], [address] INITAL EVALUATION (1) Observed: 08/26/2018 Status: F Source: [place] - PT 12:08 PM [facility] REPOSITORY [facility] [address] [place], [place] [address] Fax REHABILITATION SERVICES INITIAL EVALUATION MR#: [id number] Acct: [id number] Name: ENDER ALVES Rep #: [id number] : 1935 82 From: Wilfredo Chavze PT, Cert. MDT, OCS Referring Dr.: Priyanka Mccartney MD Status: REG RCR Insurance: MMO MEDICARE SELF PAY INSURANCE Patient's Visit Information [...] to be FAXED BACK to us at [phone] for Medicare purposes. Please let me know if there are questions or concerns regarding this plan of care. Physician Signature: Date: <Electronically signed by Wilfredo Chavez PT, Cert. T, OCS> 08/26/18 1208 CC: Priyanka Mccartney MD; Brian Degroot MD JLA Signed HIP, UNI W/ PELVIS Observed: 08/14/2018 Status: F Source: [place] 2-3 VIEWS 3:52 PM [facility] REPOSITORY [facility] Imaging Services [address] [place] [address] HIP, UNI W/ Pelvis 2-3 Views MR#: [id number] Acct: [id number] Name: ENDER ALVES Rep #: [id number] : 1935 F 82 From: Neftaly Wyman MD PCP: Brian Degroot MD, Chi Status: REG CLI Study: HIP, UNI W/ Pelvis 2-3 Views Date of Exam: 08/14/18 Exam# [id number] Ordering Dr: Priyanka Mccartney MD STUDY: X-RAY [...] CC: Priyanka Mccartney MD; Brian Degroot MD Marine Designer: Signed CBC W/DIFF, AUTOMATED Collected: 08/13/2018 Status: F Source: [place] 10:15 AM [facility] REPOSITORY TYPE CODE TESTS RESULT OUT OF [...] C+C MORPH Performed By: #### L100.0100 #### [facility] [address] [place], [place], [address] VITAMIN D,25 HYDROXY Collected: 08/13/2018 Status: F Source: [place] 10:15 AM [facility] REPOSITORY TYPE CODE TESTS RESULT OUT OF RANGE REFERENCE UNITS LAB L506.1000 29.95-100.01 ng/mL Normal Vitamin D 34.4 25-OH Result Comment: Vitamin D 25(OH) Status Range Deficiency <20 ng/mL (50nmol/L) Insuffciency 20 - 30 ng/mL (50 - 75 nmol/L) Sufficiency 30 - 100 ng/mL (75 - 250 nmol/L) Toxicity >100 ng/mL (>250 nmol/L) Performed By: #### L506.1000 #### [facility] [address] [place], [address] COMPREHENSIVE METABOLIC Collected: 08/13/2018 Status: F Source: [facility] 10:15 AM [facility] REPOSITORY TYPE CODE TESTS RESULT OUT OF [...] 12 Performed By: #### L500.4050, L501.9520 #### [facility] [address] [place], [place], [address] THYROID STIM HORMONE Collected: 08/13/2018 Status: F Source: [place] (TSH) 10:15 AM [facility] REPOSITORY TYPE CODE TESTS RESULT OUT OF RANGE REFERENCE UNITS LAB L501.9520 0.358-3.74 uIU/mL Normal TSH 2.01 Performed By: #### L500.4050, L501.9520 #### [facility] [address] [place], [address] DISCHARGE SUMMARY Observed: 08/06/2018 Status: F Source: [place] 3:23 PM [facility] REPOSITORY [facility] Medical Records Department [address] [place] [address] Discharge Summary 08/06/18 1045 MR#: [id number] Acct: [id number] Name: ENDER ALVES Rep #: [id number] : 1935 82 From: Gloria Nix MD PCP: Zane CORONA,Brian Chi Status: DIS IN Y Location: [place] [address] 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) PTN-XTT-Jivx-Mid OM1 w/ 2.25 x 12 mm Promus Premier 12/30/2013 CZZ-EGG-QIC-Prox-Mid OM2 w/ 3.0 x 23 mm Promus Stent 03/05/2010 URC-SWK-CYN-OM2 w/ Taxus Stent 04/2006 CABG x 3 SVG to D1, SVG-OM AND SVG-RCA History of coronary artery stent placement (Chronic 12/30/13) OKX-WNY-Iabl-Mid OM1 w/ 2.25 x 12 mm Promus Premier 12/30/2013 VCR-MKB-UAX-Prox-Mid OM2 w/ 3.0 x 23 mm Promus Stent 03/05/2010 PTU-UXN-UPT-OM2 w/ Taxus Stent 04/2006 H/O coronary artery [...] Farzad Banks MD at 15:42 EST Tel [phone], Service support , pain management- Dr Mccartney [...] months prior to admission was travel to [place] to visit her grandchildren. After that she [...] applicable Code Visit Inpatient E AND M: 70837 Disch Hosp 08/06/18 1523 <Electronically signed by Gloria Nix MD> Date Gloria Nix MD Cosigner Signature (if applicable): Date CC: Gloria Nix MD; Brian Degroot MD Signed BEDSIDE GLUCOSE Collected: 08/06/2018 Status: F Source: [place] 11:26 AM [facility] REPOSITORY TYPE CODE TESTS RESULT OUT OF REFERENCE UNITS RANGE LAB L501.080 70-110 mg/dL High BEDSIDE GLU 292 Result Comment: MANAGEMENT OF PATIENT CARE PER NURSING PROTOCOL Performed By: #### L501.080 #### [facility] Point of Care [address] [place] [address] DISCHARGE INSTRUCTION Observed: 08/06/2018 Status: F Source: [place] 10:45 AM [facility] REPOSITORY [facility] Medical Records Department [address] [place] [address] Instructions for Home/Discharge Instructions 08/06/18 1041 MR#: [id number] Acct: [id number] Name: ENDER ALVES Rep #: [id number] : 1935 82 From: Gloria Nix MD [...] weeks; please call office for appointment 08/06/18 3898 <Electronically signed by Gloria Nix MD> Date Gloria Nix MD CC: Priyanka Mccartney MD; Brian Degroot MD BEDSIDE GLUCOSE Collected: 08/06/2018 Status: F Source: [place] 6:41 AM [facility] REPOSITORY TYPE CODE TESTS RESULT OUT OF REFERENCE UNITS RANGE LAB L501.080 70-110 mg/dL High BEDSIDE GLU 285 Result Comment: Insulin Given MANAGEMENT OF PATIENT CARE PER NURSING PROTOCOL Performed By: #### L501.080 #### [facility] Point of Care [address] [place] [address] BASIC METABOLIC Collected: 08/06/2018 Status: F Source: [place] PROFILE (BMP) 5:06 AM [facility] REPOSITORY TYPE CODE TESTS RESULT OUT OF [...] GAP 9 Performed By: #### L500.2500 #### [facility] [address] [place], [address] CBC W/DIFF, AUTOMATED Collected: 08/06/2018 Status: F Source: [place] 5:06 AM [facility] REPOSITORY TYPE CODE TESTS RESULT OUT OF [...] Lymph 1.85 Performed By: #### L100.0100 #### [facility] [address] [place], [place], [address] BEDSIDE GLUCOSE Collected: 08/05/2018 Status: F Source: [place] 9:22 PM [facility] REPOSITORY TYPE CODE TESTS RESULT OUT OF REFERENCE UNITS RANGE LAB L501.080 70-110 mg/dL High BEDSIDE GLU 312 Result Comment: Insulin Given MANAGEMENT OF PATIENT CARE PER NURSING PROTOCOL Performed By: #### L501.080 #### [facility] Point of Care [address] [place] [address] BEDSIDE GLUCOSE Collected: 08/05/2018 Status: F Source: [place] 4:36 PM [facility] REPOSITORY TYPE CODE TESTS RESULT OUT OF REFERENCE UNITS RANGE LAB L501.080 70-110 mg/dL High BEDSIDE GLU 360 Result Comment: MANAGEMENT OF PATIENT CARE PER NURSING PROTOCOL Performed By: #### L501.080 #### [facility] Point of Care [address] [place] [address] BEDSIDE GLUCOSE Collected: 08/05/2018 Status: F Source: [place] 2:35 PM [facility] REPOSITORY TYPE CODE TESTS RESULT OUT OF REFERENCE UNITS RANGE LAB L501.080 70-110 mg/dL High BEDSIDE GLU 272 Result Comment: MANAGEMENT OF PATIENT CARE PER NURSING PROTOCOL Performed By: #### L501.080 #### [facility] Point of Care [address] [place] [address] BEDSIDE GLUCOSE Collected: 08/05/2018 Status: F Source: [place] 1:14 PM [facility] REPOSITORY TYPE CODE TESTS RESULT OUT OF REFERENCE UNITS RANGE LAB L501.080 70-110 mg/dL High BEDSIDE GLU 214 Result Comment: MANAGEMENT OF PATIENT CARE PER NURSING PROTOCOL Performed By: #### L501.080 #### [facility] Point of Care [address] [place] [address] BEDSIDE GLUCOSE Collected: 08/05/2018 Status: F Source: [place] 6:42 AM [facility] REPOSITORY TYPE CODE TESTS RESULT OUT OF REFERENCE UNITS RANGE LAB L501.080 70-110 mg/dL High BEDSIDE GLU 227 Result Comment: MANAGEMENT OF PATIENT CARE PER NURSING PROTOCOL Performed By: #### L501.080 #### [facility] Point of Care [address] [place] [address] CBC W/DIFF, AUTOMATED Collected: 08/05/2018 Status: F Source: [place] 5:35 AM [facility] REPOSITORY TYPE CODE TESTS RESULT OUT OF [...] Lymph 2.36 Performed By: #### L100.0100 #### [facility] [place], [address] BASIC METABOLIC Collected: 08/05/2018 Status: F Source: [place] PROFILE (BMP) 5:35 AM [facility] REPOSITORY TYPE CODE TESTS RESULT OUT OF [...] GAP 9 Performed By: #### L500.2500 #### [facility] [address] [place], [place], [address] PROTHROMBIN TIME W/INR Collected: 08/05/2018 Status: F Source: [place] 5:35 AM [facility] REPOSITORY TYPE CODE TESTS RESULT OUT OF RANGE REFERENCE UNITS LAB L300.4150 11.7-14.9 SECONDS Normal PROTIME 12.7 LAB L300.4200 Normal INR 1.0 Performed By: #### L300.3900 #### [facility] [address] [place], [address] HEMOGLOBIN A1C Collected: 08/05/2018 Status: F Source: [place] 5:35 AM [facility] REPOSITORY TYPE CODE TESTS RESULT OUT OF RANGE REFERENCE UNITS LAB L501.9985 4.2-6.3 % High HGB A1C 10.5 Performed By: #### L501.9985 #### [facility] [address] [place], [address] LUMBAR SPINE 2 OR 3 Observed: 08/05/2018 Status: F Source: [place] VIEWS 4:28 AM [facility] REPOSITORY [facility] Imaging Services [address] [place] [address] Lumbar Spine 2 or 3 Views MR#: [id number] Acct: [id number] Name: ENDER ALVES Rep #: [id number] : 1935 F 82 From: Farzad Banks MD PCP: Zane CORONA,Brian Kowalski Status: ADM IN Study: Lumbar Spine 2 or 3 Views Date of Exam: 08/05/18 Exam# [id number] Ordering Dr: Priyanka Mccartney MD STUDY: X-RAY [...] Farzad Banks MD at 15:42 EST Tel [phone], Service support , CC: Priyanka Mccartney MD; Brian Degroot MD Marine Designer: Signed BEDSIDE GLUCOSE Collected: 08/04/2018 Status: F Source: [place] 9:47 PM [facility] REPOSITORY TYPE CODE TESTS RESULT OUT OF REFERENCE UNITS RANGE LAB L501.080 70-110 mg/dL High BEDSIDE GLU 305 Result Comment: MANAGEMENT OF PATIENT CARE PER NURSING PROTOCOL Performed By: #### L501.080 #### [facility] Point of Care [address] [place] [address] BEDSIDE GLUCOSE Collected: 08/04/2018 Status: F Source: [place] 6:03 PM [facility] REPOSITORY TYPE CODE TESTS RESULT OUT OF REFERENCE UNITS RANGE LAB L501.080 70-110 mg/dL High BEDSIDE GLU 409 Result Comment: MANAGEMENT OF PATIENT CARE PER NURSING PROTOCOL Performed By: #### L501.080 #### [facility] Point of Care [address] [place] [address] HISTORY AND PHYSICAL Observed: 08/04/2018 Status: F Source: [place] EXAM 4:23 PM [facility] REPOSITORY [facility] Medical Records Department [address] [facility] [place] [address] History and Physical 08/04/18 0707 MR#: [id number] Acct: [id number] Name: ENDER ALVES Rep #: [id number] : 1935 82 From: Gloria Nix MD PCP: Zane CORONA,Brian Kowalski Status: ADM IN Location: [address] History of Present Illness Date of Admission: 08/04/18 Chief Complaint: Generalized pain and weakness. The patient is a 82 year old F with an extensive past medical history as listed below. She was admitted through the ED with a complaint of generalized pain which had been going on for some months. Patient had Legionella pneumonia 5 months ago when she traveled to [place] to visit her grandchildren. Subsequent to that [...] 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 (Chronic) ACP-ROP-Zkib-Mid OM1 w/ 2.25 x 12 mm Promus Premier 12/30/2013 YWI-NLS-VMP-Prox-Mid OM2 w/ 3.0 x 23 mm Promus Stent 03/05/2010 WJW-OXI-AGK-OM2 w/ Taxus Stent 04/2006 CABG x 3 SVG to D1, SVG-OM AND SVG-RCA History of coronary artery stent placement (Chronic 12/30/13) XRY-CUK-Lzpr-Mid OM1 w/ 2.25 x 12 mm Promus Premier 12/30/2013 IMI-QLS-HPK-Prox-Mid OM2 w/ 3.0 x 23 mm Promus Stent 03/05/2010 YND-RYQ-EGU-OM2 w/ Taxus Stent 04/2006 H/O coronary artery [...] bypass graft without angina pectoris (Chronic) I25.810 BJQ-WYF-Ryrj-Mid OM1 w/ 2.25 x 12 mm Promus Premier 12/30/2013 KMA-HYF-PBU-Prox-Mid OM2 w/ 3.0 x 23 mm Promus Stent 03/05/2010 EME-UIA-NOJ-OM2 w/ Taxus Stent 04/2006 CABG x 3 [...] stent placement (Chronic) Onset Date: 12/30/13 Z95.5 IIU-FQK-Cyyg-Mid OM1 w/ 2.25 x 12 mm Promus Premier 12/30/2013 FMM-XWB-JJP-Prox-Mid OM2 w/ 3.0 x 23 mm Promus Stent 03/05/2010 VSK-JSH-PRK-OM2 w/ Taxus Stent 04/2006 H/O coronary artery [...] hysterectomy Psychiatric History: No pertinent psych hx LAP CHECKER History: No pertinent LAP CHECKER history Lives: With Family Smoking Status: Former [...] Patient elects to be full code. Total nhsm-og-suvi time 16 minutes. Code Visit Inpatient E AND M: 62768 Init Hosp L3 Procedures: 71734 Advncd Care Plan 30 Min 08/04/18 1623 <Electronically signed by Gloria Nix MD> Date Gloria Nix MD Cosigner Signature: Date (if applicable) CC: Gloria Nix MD; Brian Degroot MD Signed BEDSIDE GLUCOSE Collected: 08/04/2018 Status: F Source: [place] 4:12 PM [facility] REPOSITORY TYPE CODE TESTS RESULT OUT OF REFERENCE UNITS RANGE LAB L501.080 70-110 mg/dL High BEDSIDE GLU 376 Result Comment: MANAGEMENT OF PATIENT CARE PER NURSING PROTOCOL Performed By: #### L501.080 #### [facility] Point of Care [address] [place] [address] BEDSIDE GLUCOSE Collected: 08/04/2018 Status: F Source: [place] 2:23 PM [facility] REPOSITORY TYPE CODE TESTS RESULT OUT OF REFERENCE UNITS RANGE LAB L501.080 70-110 mg/dL High BEDSIDE GLU 438 Result Comment: MANAGEMENT OF PATIENT CARE PER NURSING PROTOCOL Performed By: #### L501.080 #### [facility] Point of Care [address] [place] [address] GLUCOSE Collected: 08/04/2018 Status: F Source: [place] 12:25 PM [facility] REPOSITORY Order Comment: Comments: BGT >450- CALLED AND NOTIFIED OF SAME TO PHILLIP TYPE CODE TESTS RESULT OUT OF RANGE REFERENCE UNITS LAB L501.0100 74-106 mg/dL High GLU 450 Result Comment: Glucose result greater than or equal to 200 mg/dL suggests DIABETES MELLITUS per A.D.A. criteria. Please note revised GLUCOSE reference range effective 2017. Performed By: #### L501.0100 #### [facility] [address] [facility] [place], [address] BEDSIDE GLUCOSE Collected: 08/04/2018 Status: F Source: [place] 12:14 PM [facility] REPOSITORY TYPE CODE TESTS RESULT OUT OF REFERENCE UNITS RANGE LAB L501.080 70-110 mg/dL High alert BEDSIDE GLU 485 Result Comment: Dr Bernal Followed MANAGEMENT OF PATIENT CARE PER NURSING PROTOCOL Performed By: #### L501.080 #### [facility] Point of Care [address] [place] [address]. [place] [address] THYROID STIM HORMONE Collected: 08/04/2018 Status: F Source: [place] (TSH) 9:40 AM [facility] REPOSITORY TYPE CODE TESTS RESULT OUT OF RANGE REFERENCE UNITS LAB L501.9520 0.358-3.74 uIU/mL Normal TSH 3.09 Performed By: #### L501.9520 #### [facility] [address] [place], [address] DEANNE W/ REFLEX MULT Collected: 08/04/2018 Status: F Source: [place] CONFIRM 9:40 AM [facility] REPOSITORY TYPE CODE TESTS RESULT OUT OF RANGE REFERENCE UNITS LAB L3100.5475 Negative Normal Negative DEANNE-DIRECT Result Comment: Performed at: - [facility] [address] [id number] [employer]: Alejandro Woflf PhD, Phone: [phone] Performed By: #### L3100.5450 #### [facility] (refer to report for specific site) refer to report for address and phone number EMERGENCY DEPARTMENT Observed: 08/04/2018 Status: F Source: [place] SUMMARY 8:56 AM [facility] REPOSITORY [facility] Medical Records Department [address] [place] [address] Emergency Department Summary 08/04/18 0721 MR#: [id number] Acct: [id number] Name: ENDER ALVES Rep #: [id number] : 1935 82 From: Owen Cristina MD PCP: Brian Degroot MD, Chi Status: ADM IN - ER Visit Summary [...] any presence of fevers. Patient is taking Hope Hull at home does not seem to be [...] Functional decline This note was generated with Webcom dictation software. It may contain incorrect words, [...] your Primary Care Provider. Call [facility] ([phone]) or report to the closest Emergency Room. Call 911 if necessary. 08/04/18 0856 <Electronically signed by Owen Cristina MD> Date Owen Cristina MD Cosigner Signature (If Indicated): Date CC: Brian Degroot MD BEDSIDE GLUCOSE Collected: 08/04/2018 Status: F Source: [place] 8:10 AM [facility] REPOSITORY TYPE CODE TESTS RESULT OUT OF REFERENCE UNITS RANGE LAB L501.080 70-110 mg/dL High BEDSIDE GLU 295 Result Comment: MANAGEMENT OF PATIENT CARE PER NURSING PROTOCOL Performed By: #### L501.080 #### [facility] Point of Care [address] [place] [address] URINALYSIS, COMPLETE Collected: 08/04/2018 Status: F Source: [place] 5:50 AM [facility] REPOSITORY Order Comment: How was Urine Obtained? [...] URINE SEEN Performed By: #### L400.0001 #### [facility] [address] [place], [address] CBC W/DIFF, AUTOMATED Collected: 08/04/2018 Status: F Source: [place] 5:14 AM [facility] REPOSITORY TYPE CODE TESTS RESULT OUT OF [...] 1.54 Performed By: #### L100.0100, L101.9900 #### [facility] [address] [place], [place], [address] ERYTHROCYTE SED RATE Collected: 08/04/2018 Status: F Source: [place] 5:14 AM [facility] REPOSITORY TYPE CODE TESTS RESULT OUT OF RANGE REFERENCE UNITS LAB L102.0000 0-30 mm/hr High SED RATE 66 Performed By: #### L100.0100, L101.9900 #### [facility] [address] [place], [address] COMPREHENSIVE METABOLIC Collected: 08/04/2018 Status: F Source: [facility] 5:14 AM [facility] REPOSITORY TYPE CODE TESTS RESULT OUT OF [...] Performed By: #### L500.4050, L501.3620, L501.6710 #### [facility] [address] [place], [address] CPK TOTAL, CREATINE Collected: 08/04/2018 Status: F Source: [place] KINASE 5:14 AM [facility] REPOSITORY TYPE CODE TESTS RESULT OUT OF RANGE REFERENCE UNITS LAB L501.3620 26-192 U/L Low CPK TOTAL 20 Performed By: #### L500.4050, L501.3620, L501.6710 #### [facility] [address] [place], [address] CRP Collected: 08/04/2018 Status: F Source: [place] 5:14 AM [facility] REPOSITORY TYPE CODE TESTS RESULT OUT OF RANGE REFERENCE UNITS LAB L501.6710 0.0-3.0 mg/L High 55.90 C-REACTIVE PROT Result Comment: C-Reactive Protein (CRP) provides useful information for the diagnosis, therapy and monitoring of inflammatory processes and associated diseases. For the evaluation of Relative Risk for Cardiovascular Disease, a High Sensitivity CRP (HSCRP) should be ordered. Performed By: #### L500.4050, L501.3620, L501.6710 #### [facility] [address] [place], [address] ABDOMEN SINGLE VIEW Observed: 08/04/2018 Status: F Source: [place] 5:03 AM [facility] REPOSITORY [facility] Imaging Services [address] [place] [address] Abdomen Single View MR#: [id number] Acct: [id number] Name: ENDER ALVES Rep #: [id number] : 1935 F 82 From: Jovanny Palacios MD PCP: Zane CORONA,Someecards Status: REG ER Study: Abdomen Single View Date of Exam: 08/04/18 Exam# [id number] Ordering Dr: Owen Cristina MD STUDY: X-RAY [...] Tel , Service support , CC: Owen Cristina; Brian Degroot MD Marine Designer: Signed 12 LEAD ELECTROCARDIOGRAM Observed: 08/03/2018 Status: F Source: [place] 3:57 PM [facility] REPOSITORY [facility] Cardiovascular Services [address] [place] [address] 12 Lead EKG 07/30/18 1751 MR#: [id number] Acct: [id number] Name: ENDER ALVES Rep #: [id number] : 1935 82 From: Robert Bonilla MD [...] ECG Confirmed by IRENE CORONA, ROBERT ([id number]), assistant editor JUANIS PLUNKETT ([id number]) on 08/03/2018 3:57:20 PM Referred By: Brian Degroot Confirmed By:ROBERT BONILLA MD 08/03/18 1557 Date Robert Bonilla MD CC: Owen Cintron MD; Brian Degroot MD Signed SHOULDER MIN 2 VIEWS Observed: 08/03/2018 Status: F Source: [place] 1:24 PM [facility] REPOSITORY [facility] Imaging Services [address] [place] [address] Shoulder min 2 Views MR#: [id number] Acct: [id number] Name: ENDER ALVES Rep #: [id number] : 1935 F 82 From: Jovanny Palacios MD PCP: Brian Degroot MD, Chi Status: REG CLI Study: Shoulder min 2 Views Date of Exam: 08/03/18 Exam# [id number] Ordering Dr: Priyanka Mccartney MD STUDY: X-RAY [...] CC: Priyanka Mccartney MD; Brian Degroot MD Marine Designer: Signed CERV SPINE 2 OR 3 Observed: 08/03/2018 Status: F Source: [place] VIEWS 1:24 PM [facility] REPOSITORY [facility] Imaging Services [address] [place] [address] Cerv Spine 2 or 3 Views MR#: [id number] Acct: [id number] Name: ENDER ALVES Rep #: [id number] : 1935 F 82 From: Sulaiman Braswell DO PCP: Brian Degroot MD, Chi Status: REG CLI Study: Cerv Spine 2 or 3 Views Date of Exam: 08/03/18 Exam# [id number] Ordering Dr: Priyanka Mccartney MD STUDY: X-RAY [...] CC: Priyanka Mccartney MD; Brian Degroot MD Marine Designer: Signed EMERGENCY DEPARTMENT Observed: 07/30/2018 Status: F Source: [place] SUMMARY 10:28 PM [facility] REPOSITORY [facility] Medical Records Department [address] [place] [address] Emergency Department Summary 07/30/182045 MR#: [id number] Acct: [id number] Name: ENDER ALVES Rep #: [id number] : 1935 82 From: Owen Cintron MD [...] 2. Hypokalemia This note was generated with Webcom dictation software. It may contain incorrect words, [...] problems, contact your Primary Care Provider. Call [employer] [facility] ([phone]) or report to the closest Emergency Room. Call [phone] if necessary. 07/30/184 <Electronically signed by Owen Cintron MD> Date Owne Cintron MD Cosigner Signature (If Indicated): Date CC: Brian Dgeroot MD URINALYSIS, COMPLETE Collected: 07/30/2018 Status: F Source: [place] 7:10 PM [facility] REPOSITORY Order Comment: Order Date: 07/30/18 Has pt arrived? Y How was Urine Obtained? HOTEL SERVICE MANAGER TO SPECIFY TYPE CODE TESTS RESULT OUT [...] Normal AMORPHOUS Performed By: #### L400.0001 #### [facility] [address] [place], [address] BEDSIDE GLUCOSE Collected: 07/30/2018 Status: F Source: [place] 7:01 PM [facility] REPOSITORY TYPE CODE TESTS RESULT OUT OF REFERENCE UNITS RANGE LAB L501.080 70-110 mg/dL High BEDSIDE GLU 221 Result Comment: MANAGEMENT OF PATIENT CARE PER NURSING PROTOCOL Performed By: #### L501.080 #### [facility] Point of Care [address] [place] [address] BRAIN/HEAD WITHOUT Observed: 07/30/2018 Status: F Source: [place] CONTRAST 6:56 PM [facility] REPOSITORY [facility] Imaging Services [address] [place] [address] Brain/Head without Contrast MR#: [id number] Acct: [id number] Name: ENDER ALVES Rep #: [id number] : 1935 F 82 From: Ray Fleming DO PCP: Zane CORONA,Brian [facility] Status: REG ER Study: Brain/Head without Contrast Date of Exam: 07/30/18 Exam# [id number] Ordering Dr: Owen Cintron MD STUDY: CT [...] Ray Fleming DO at 19:43 EDT Tel [phone], Service support , CC: Owen Cintron MD; Brian Degroot MD Marine Designer: Signed CBC W/DIFF, AUTOMATED Collected: 07/30/2018 Status: F Source: [place] 6:00 PM [facility] REPOSITORY TYPE CODE TESTS RESULT OUT OF [...] 2.37 Performed By: #### L100.0100, L101.9900 #### [facility] [address] [place], [address] ERYTHROCYTE SED RATE Collected: 07/30/2018 Status: F Source: [place] 6:00 PM [facility] REPOSITORY TYPE CODE TESTS RESULT OUT OF RANGE REFERENCE UNITS LAB L102.0000 0-30 mm/hr High SED RATE 67 Performed By: #### L100.0100, L101.9900 #### [facility] [address] [place], [address] COMPREHENSIVE METABOLIC Collected: 07/30/2018 Status: F Source: [facility] 6:00 PM [facility] REPOSITORY TYPE CODE TESTS RESULT OUT OF [...] Performed By: #### L500.4050, L501.3620, L501.4010 #### [facility] [address] [place], [place], [address] CPK TOTAL, CREATINE Collected: 07/30/2018 Status: F Source: [place] KINASE 6:00 PM [facility] REPOSITORY TYPE CODE TESTS RESULT OUT OF RANGE REFERENCE UNITS LAB L501.3620 26-192 U/L Normal CPK TOTAL 28 Performed By: #### L500.4050, L501.3620, L501.4010 #### [facility] [address] [place], [place], [address] TROPONIN-I Collected: 07/30/2018 Status: F Source: [place] 6:00 PM [facility] REPOSITORY TYPE CODE TESTS RESULT OUT OF RANGE REFERENCE UNITS LAB L501.4010 <0.045 ng/mL Normal < 0.015 TROPONIN-I Result Comment: TROPONIN-I EXPECTED VALUES <0.045 Negative 0.045 - 0.590 Consistent with Cardiac Damage > OR = 0.600 Critical Value Not every elevated troponin is indicative of NH. These values should be used with clinical judgement in examining the patient's clinical picture for diagnosis. To establish a diagnosis of NH versus myocardial injury, there must be a demonstrated rise and/or fall in the troponin values, in addition to ischemic symptoms, EKG changes, new regional wall motion abnormality, and/or angiographical evidence. PLEASE NOTE: REFERENCE RANGES EDITED 18 Performed By: #### L500.4050, L501.3620, L501.4010 #### [facility] [address] [place], [address] CHEST PA AND LATERAL Observed: 07/30/2018 Status: F Source: [place] 5:42 PM [facility] REPOSITORY [facility] Imaging Services [address] [place] [address] Chest PA and Lateral MR#: [id number] Acct: [id number] Name: ENDER ALVES Rep #: [id number] : 1935 F 82 From: Ray Fleming DO PCP: Zane CORONA,Brian Kowalski Status: REG ER Study: Chest PA and Lateral Date of Exam: 07/30/18 Exam# [id number] Ordering Dr: Owen Cintron MD STUDY: X-RAY [...] Ray Fleming DO at 18:34 EDT Tel [phone], Service support , CC: Owen Cintron MD; Brian Degroot MD Marine Designer: Signed SURGERY VISIT REPORT Observed: 07/24/2018 Status: F Source: [place] 9:13 AM [facility] REPOSITORY [facility] [address] [place] [address] OFFICE VISIT Date of Service: 07/23/18 MR#: [id number] Acct: [id number] Name: ENDER ALVES Rep #: [id number] : 1935 Provider: Raymond Felder MD Age/Sex: 82/F Location: [facility] Status: Signed Intake Intake Visit Reasons: PO Upper Scope 06/23 Chief Complaint: Follow-up visit. Senior Quantity Surveyor Required: No Is patient in pain?: No [...] mg PO QDAY 06/22/18 [History Confirmed 07/23/18] [facility] Medical History GI bleed (Chronic) Old [...] Follow-up as needed Raymond Felder MD Pager: [facility] [address] [place] [address], [address] [place] [address] Office: Coding Level of Care Code Off vis,est,level 2 Diagnoses Dang esophagitis B37.81 07/24/18 0913 <Electronically signed by Raymond Felder MD> Date Raymond Felder MD Cosigner Signature: Date (if applicable) CC: Brian Degroot MD L/S SPINE W BEND Observed: 07/22/2018 Status: F Source: [place] MIN 6 VW 10:32 AM [facility] REPOSITORY [facility] Imaging Services [address] [place], [place] [address], [place] [address] L/S Spine w Bend Min 6 Vw MR#: [id number] Acct: [id number] Name: ENDER ALVES Rep #: [id number] : 1935 F 82 From: Noe Ortiz MD PCP: Brian Degroot MD, Chi Status: REG CLI Study: L/S Spine w Bend Min 6 Vw Date of Exam: 07/22/18 Exam# [id number] Ordering Dr: Brian Degroot MD STUDY: X-RAY [...] Service support , CC: Brian Degroot MD Marine Designer: Signed SPINE LUMBAR Observed: 07/22/2018 Status: F Source: [place] (ROUTINE) 9:32 AM [facility] REPOSITORY [facility] Imaging Services [address] [place] [address] Spine Lumbar (Routine) MR#: [id number] Acct: [id number] Name: ENDER ALVES Rep #: [id number] : 1935 F 82 From: Noe Ortiz MD PCP: Brian Degroot MD, Chi Status: REG CLI Study: Spine Lumbar (Routine) Date of Exam: 07/22/18 Exam# [id number] Ordering Dr: Brian Degroot MD ADDENDUM by [...] on 07/25/18 at 0745 MRI/Spine Lumbar (Routine) 07/25/18751 Date cc: Brian Degroot MD * Signed [...] Service support , CC: Brian Degroot MD Marine Designer: Signed BASIC METABOLIC Collected: 07/15/2018 Status: F Source: [place] PROFILE (BMP) 10:11 AM [facility] REPOSITORY TYPE CODE TESTS RESULT OUT OF [...] 8 Performed By: #### L500.2500, L501.6710 #### [facility] [address] [place], [address] CRP Collected: 07/15/2018 Status: F Source: [place] 10:11 AM [facility] REPOSITORY TYPE CODE TESTS RESULT OUT OF RANGE REFERENCE UNITS LAB L501.6710 0.0-3.0 mg/L High 9.00 C-REACTIVE PROT Result Comment: C-Reactive Protein (CRP) provides useful information for the diagnosis, therapy and monitoring of inflammatory processes and associated diseases. For the evaluation of Relative Risk for Cardiovascular Disease, a High Sensitivity CRP (HSCRP) should be ordered. Performed By: #### L500.2500, L501.6710 #### [facility] [address] [place], [address] ERYTHROCYTE SED RATE Collected: 07/15/2018 Status: F Source: [place] 10:11 AM [facility] REPOSITORY TYPE CODE TESTS RESULT OUT OF RANGE REFERENCE UNITS LAB L102.0000 0-30 mm/hr High SED RATE 58 Performed By: #### L101.9900, L100.0100 #### [facility] [address] [place], [address] CBC W/DIFF, AUTOMATED Collected: 07/15/2018 Status: F Source: [place] 10:11 AM [facility] REPOSITORY TYPE CODE TESTS RESULT OUT OF [...] 3.53 Performed By: #### L101.9900, L100.0100 #### [facility] [address] [place], [place], [address] ESOPHAGEAL BIOPSY Observed: 06/23/2018 Status: F Source: [place] 8:00 AM [facility] REPOSITORY Patient: ENDER ALVES : 1935 (82/F) Acct Num: [id number] Phys: Bradford CORONA,Raymond Unit Num: [id number] Loc: EN Specimen: [id number] Received: 06/23/18 - 1 Spec Type: ESOPH BX TISSUES 1 TISSUES: [...] one cassette. / RY:justice 06/23/18 TC:2 CPT: 67843, [address] HEADER OPERATION: EGD ([facility] PRE-OP DIAGNOSIS: Esophagitis TISSUE SUBMITTED: Distal esophageal biopsy to rule out fungus MICROSCOPIC DESCRIPTION Slides are reviewed. MICROSCOPIC DIAGNOSIS Distal esophagus, biopsy: Acute esophagitis. Abundant fungal organisms consistent with dang species. AM:justice 06/24/18 Signed Eugenio Kwame 06/24/18 <signature on file> Performed By: #### ROSHNI #### [facility] [address] [place], [place], [address] BEDSIDE GLUCOSE Collected: 06/23/2018 Status: F Source: [place] 7:44 AM [facility] REPOSITORY TYPE CODE TESTS RESULT OUT OF REFERENCE UNITS RANGE LAB L501.080 70-110 mg/dL High BEDSIDE GLU 170 Result Comment: MANAGEMENT OF PATIENT CARE PER NURSING PROTOCOL Performed By: #### L501.080 #### [facility] Point of Care [address] [place] [address] PROTHROMBIN TIME W/INR Collected: 06/11/2018 Status: F Source: [place] 4:19 PM [facility] REPOSITORY TYPE CODE TESTS RESULT OUT OF RANGE REFERENCE UNITS LAB L300.4150 11.7-14.9 SECONDS Normal PROTIME 12.0 LAB L300.4200 Normal INR 0.9 Performed By: #### L300.3900, L300.4310 #### [facility] [address] [place], [address] PARTIAL THROMBOPLAST Collected: 06/11/2018 Status: F Source: [place] TIME 4:19 PM [facility] REPOSITORY TYPE CODE TESTS RESULT OUT OF RANGE REFERENCE UNITS LAB L300.4310 24.1-36.2 Seconds Normal PTT 24.6 Performed By: #### L300.3900, L300.4310 #### [facility] [address] [place], [address] CBC W/DIFF, AUTOMATED Collected: 06/11/2018 Status: F Source: [place] 4:19 PM [facility] REPOSITORY TYPE CODE TESTS RESULT OUT OF [...] Lymph 2.68 Performed By: #### L100.0100 #### [facility] [address] [place], [place], [address] BASIC METABOLIC Collected: 06/11/2018 Status: F Source: [place] PROFILE (BMP) 4:19 PM [facility] REPOSITORY TYPE CODE TESTS RESULT OUT OF [...] GAP 10 Performed By: #### L500.2500 #### [facility] [address] [place], [address] KNEE 4 OR MORE Observed: 05/28/2018 Status: F Source: [place] VIEWS 2:59 PM [facility] REPOSITORY [facility] Imaging Services [address] [place] [address] Knee 4 or More Views MR#: [id number] Acct: [id number] Name: ENDER ALVES Rep #: [id number] : 1935 F 82 From: Juan Valadez MD PCP: Zane CORONA,Brian Kowalski Status: REG CLI Study: Knee 4 or More Views Date of Exam: 05/28/18 Exam# [id number] Ordering Dr: Brian Degroot MD STUDY: X-RAY [...] Service support , CC: Brian Degroot MD Marine Designer: Signed CBC W/DIFF, AUTOMATED Collected: 05/28/2018 Status: F Source: [place] 2:44 PM [facility] REPOSITORY TYPE CODE TESTS RESULT OUT OF [...] Lymph 3.75 Performed By: #### L100.0100 #### [facility] [address] [place], [address] COMPREHENSIVE METABOLIC Collected: 05/28/2018 Status: F Source: [facility] 2:44 PM [facility] REPOSITORY TYPE CODE TESTS RESULT OUT OF [...] 12 Performed By: #### L500.4050, L501.9520 #### [facility] [address] [place], [address] THYROID STIM HORMONE Collected: 05/28/2018 Status: F Source: [place] (TSH) 2:44 PM [facility] REPOSITORY TYPE CODE TESTS RESULT OUT OF RANGE REFERENCE UNITS LAB L501.9520 0.358-3.74 uIU/mL Normal TSH 2.00 Performed By: #### L500.4050, L501.9520 #### [facility] [address] [place], [address] SURGERY VISIT REPORT Observed: 05/11/2018 Status: F Source: [place] 10:12 AM [facility] REPOSITORY [facility] [address] [place] [address]. [address] [place] [address] OFFICE VISIT Date of Service: 05/11/18 MR#: [id number] Acct: [id number] Name: ENDER ALVES Rep #: [id number] : 1935 Provider: Raymond Felder MD Age/Sex: 82/F Location: [facility] Status: Signed Intake Intake Visit Reasons: Upper Scope [facility] 04/24 Chief Complaint: Follow-up visit. Senior Quantity Surveyor Required: No Is patient in pain?: No [...] to ensure healing. Raymond Felder MD Pager: [facility] [address] [place] [address], [address] [place] [address] Office: Medications New: Coding Level of Care Code Off vis,est,level 2 Diagnoses Esophagitis determined by endoscopy K20.9 05/11/18 1012 <Electronically signed by Raymond Felder MD> Date Raymond Felder MD Cosigner Signature: Date (if applicable) CC: Brian Degroot MD Observed: 05/05/2018 Status: F Source: [place] CULTURE, SPUTUM 11:34 AM [facility] REPOSITORY Gram Stain Acceptable Specimen? Yes (<25 Epithelial cells per/lpf) Gram Stain 1+ Epithelial cells 1+ Gram positive cocci Resp. Culture Mixed normal respiratory eyal. No Haemophilus, Streptococcus pneumoniae, beta-hemolytic Streptococcus or Staphylococcus aureus isolated. ORGANISM 1: Presumptive C albicans Amount Growth 1+ Performed By: #### M100.0800 #### [facility] [address] [place], [address] CHEST PA AND LATERAL Observed: 05/04/2018 Status: F Source: [place] 4:13 PM [facility] REPOSITORY [facility] Imaging Services [address] [place] [address] Chest PA and Lateral MR#: [id number] Acct: [id number] Name: ENDER ALVES Rep #: [id number] : 1935 F 82 From: Armando Meredith MD PCP: Brian Degroot MD, Chi Status: REG CLI Study: Chest PA and Lateral Date of Exam: 05/04/18 Exam# [id number] Ordering Dr: Brian Degroot MD STUDY: X-RAY [...] Service support , CC: Brian Degroot MD Marine Designer: Signed CBC W/DIFF, AUTOMATED Collected: 05/04/2018 Status: F Source: [place] 3:56 PM [facility] REPOSITORY TYPE CODE TESTS RESULT OUT OF [...] Lymph 4.28 Performed By: #### L100.0100 #### [facility] [address] [place], [place], [address] BASIC METABOLIC Collected: 05/04/2018 Status: F Source: [place] PROFILE ([facility]) 3:56 PM [facility] REPOSITORY TYPE CODE TESTS RESULT OUT OF [...] GAP 9 Performed By: #### L500.2500 #### [facility] [address] [place], [address] Observed: 05/04/2018 Status: F Source: [place] CULTURE, BLOOD (WB) 3:56 PM [facility] REPOSITORY No growth in 5 days. Performed By: #### M200.1000 #### [facility] [address] [facility] [place], [address] Observed: 05/04/2018 Status: F Source: [place] CULTURE, BLOOD (WB) 3:56 PM [facility] REPOSITORY No growth in 5 days. Performed By: #### M200.1000 #### [facility] [address] [place], [address] OPERATIVE REPORT Observed: 04/24/2018 Status: F Source: [place] 11:56 AM [facility] REPOSITORY [facility] Medical Records Department [address] [place] [address] Operative Report 04/24/18 1151 MR#: [id number] Acct: [id number] Name: ENDER ALVES Rep #: [id number] : 1935 82 From: Raymond Felder MD PCP: Zane CORONA,Brian Kowalski Status: REG [facility] Y Location: [place] [address] Problem List (1) GI bleed Status: Chronic [...] Felder MD; Brian Degroot MD Signed EGD ([facility]) Observed: 04/24/2018 Status: F Source: [place] 11:00 AM [facility] REPOSITORY Patient: ENDER ALVES : 1935 (82/F) Acct Num: [id number] Phys: Bradford CORONA,Raymond Unit Num: [id number] Loc: EN Specimen: [id number] Received: 04/24/18 - 1224 Spec Type: EGD [...] is totally submitted in one cassette. / CATHERINE:justice 04/24/18 TC:2 CPT: 60109, 04419, 510[address] HEADER OPERATION: Colonoscopy, EGD ([facility] PRE-OP DIAGNOSIS: GI bleed TISSUE SUBMITTED: Distal esophagus biopsy MICROSCOPIC DESCRIPTION Slides are reviewed. MICROSCOPIC DIAGNOSIS Distal esophagus, biopsy: Fragments of gastroesophageal mucosa with extensive ulceration, acute inflammation and reactive changes. Special stain for fungi I negative for organisms; matched control is appropriate. Intestinal metaplasia (goblet cell metaplasia) is not identified. See comment. CATHERINE:justice 04/27/18 Signed Seth Dickens 04/27/18 <signature on file> Performed By: #### PEGD #### [facility] [address] [place], [place], [address] BEDSIDE GLUCOSE Collected: 04/24/2018 Status: F Source: [place] 10:20 AM [facility] REPOSITORY TYPE CODE TESTS RESULT OUT OF REFERENCE UNITS RANGE LAB L501.080 70-110 mg/dL High BEDSIDE GLU 153 Result Comment: MANAGEMENT OF PATIENT CARE PER NURSING PROTOCOL Performed By: #### L501.080 #### [facility] Point of Care [address] [place], [place] [address] 12 LEAD ELECTROCARDIOGRAM Observed: 04/09/2018 Status: F Source: [place] 1:58 PM [facility] REPOSITORY [facility] Cardiovascular Services [address] [place] [address] 12 Lead EKG 04/07/18 2141 MR#: [id number] Acct: [id number] Name: ENDER ALVES Rep #: [id number] : 1935 82 From: Robert Bonilla MD [...] ECG Confirmed by ROBERT BONILLA MD ([id number]), assistant editor JUANIS PLUNKETT ([id number]) on 04/09/2018 1:58:02 PM Referred By: ANA M Confirmed By:ROBERT BONILLA MD 04/09/18 1358 Date Robert Bonilla MD CC: Owen Cristina; Brian Degroot MD Signed Observed: 04/08/2018 Status: F Source: [place] RESPIRATORY PANEL 6:58 PM [facility] MOLECULAR REPOSITORY RP PANEL ADENOVIRUS Not Detected [...] acid amplification Performed By: #### M100.638 #### [facility] [address] [place], [address] CHEST WITH CONTRAST Observed: 04/08/2018 Status: F Source: [place] 5:49 PM [facility] REPOSITORY [facility] Imaging Services [address] [place] [address] Chest WITH Contrast MR#: [id number] Acct: [id number] Name: ENDER ALVES Rep #: [id number] : 1935 F 82 From: Jose De Jesus Crowell MD PCP: Brian Degroot MD, Chi Status: REG CLI Study: Chest WITH Contrast Date of Exam: 04/08/18 Exam# [id number] Ordering Dr: Brian Degroot MD STUDY: CT [...] Service support , CC: Brian Degroot MD Marine Designer: Signed CARDIOLOGY VISIT Observed: 04/08/2018 Status: F Source: [place] REPORT 9:43 AM [facility] REPOSITORY [facility] [address] [place] [address] OFFICE VISIT Date of Service: 04/08/18 MR#: [id number] Acct: [id number] Name: ENDER ALVES Rep #: [id number] : 1935 Provider: Robert Bonilla MD Age/Sex: 82/F Location: [facility] Status: Signed HPI HPI Chief Complaint: [...] SC QDAY ml 04/08/18 [History Confirmed 04/08/18] [facility] Medical History GI bleed (Chronic) Old [...] History of coronary artery stent placement Z95.5 GKZ-MVY-Ggye-Mid OM1 w/ 2.25 x 12 mm Promus Premier 12/30/2013 QLB-MCO-FIX-Prox-Mid OM2 w/ 3.0 x 23 mm Promus Stent 03/05/2010 OBM-VUK-XSD-OM2 w/ Taxus Stent 04/2006 Plan She does [...] EMERGENCY DEPARTMENT Observed: 04/08/2018 Status: F Source: [place] SUMMARY 7:17 AM [facility] REPOSITORY [facility] Medical Records Department [address] [place] [address] Emergency Department Summary 04/08/18 0037 MR#: [id number] Acct: [id number] Name: ENDER ALVES Rep #: [id number] : 1935 82 From: Owen Cristina MD PCP: Brian Degroot MD, Chi Status: DEP ER - ER Visit Summary [...] Legionella pneumonia This note was generated with Webcom dictation software. It may contain incorrect words, [...] problems, contact your Primary Care Provider. Call [employer] [facility] ([phone]) or report to the closest Emergency Room. Call 911 if necessary. 04/08/18 6405 <Electronically signed by Owen Cristina MD> Date Owen Cristina MD [employer]smith Signature (If Indicated): Date CC: Brian Degroot MD CBC W/DIFF, AUTOMATED Collected: 04/07/2018 Status: C Source: [place] 10:20 PM [facility] REPOSITORY TYPE CODE TESTS RESULT OUT OF [...] 04/08/18 1550 PATH REV previously reported as: May foll Performed By: #### L100.0100 #### [facility] [address] [place], [address] BASIC METABOLIC Collected: 04/07/2018 Status: F Source: [place] PROFILE (BMP) 10:20 PM [facility] REPOSITORY TYPE CODE TESTS RESULT OUT OF [...] Performed By: #### L500.2500, L501.4010, L503.6620 #### [facility] [address] [place], [address] TROPONIN-I Collected: 04/07/2018 Status: F Source: [place] 10:20 PM [facility] REPOSITORY TYPE CODE TESTS RESULT OUT OF RANGE REFERENCE UNITS LAB L501.4010 <0.045 ng/mL Normal < 0.015 TROPONIN-I Result Comment: TROPONIN-I EXPECTED VALUES <0.045 Negative 0.045 - 0.590 Consistent with Cardiac Damage > OR = 0.600 Critical Value Not every elevated troponin is indicative of NH. These values should be used with clinical judgement in examining the patient's clinical picture for diagnosis. To establish a diagnosis of NH versus myocardial injury, there must be a demonstrated rise and/or fall in the troponin values, in addition to ischemic symptoms, EKG changes, new regional wall motion abnormality, and/or angiographical evidence. PLEASE NOTE: REFERENCE RANGES EDITED 18 Performed By: #### L500.2500, L501.4010, L503.6620 #### [facility] [address] [place], [address] BNP,B-TYPE NATRIURETIC Collected: 04/07/2018 Status: F Source: [place] PEPTIDE 10:20 PM [facility] REPOSITORY TYPE CODE TESTS RESULT OUT OF RANGE REFERENCE UNITS LAB L503.6620 0-100 pg/mL Normal B-TYPE 27.5 BRODERICK PEP Performed By: #### L500.2500, L501.4010, L503.6620 #### [facility] [address] [place], [address] SURGERY VISIT REPORT Observed: 04/07/2018 Status: F Source: [place] 2:44 PM [facility] REPOSITORY [facility] [address] [place] [address] OFFICE VISIT Date of Service: 04/07/18 MR#: [id number] Acct: [id number] Name: ENDER ALVES Rep #: [id number] : 1935 Provider: Raymond Felder MD Age/Sex: 82/F Location: [facility] Status: Signed Intake Vital Signs04/07/18 Height 5 ft 4 in 04/07/18 Weight: 171 lb Intake Visit Reasons: Blood in stool/[facility] ER REF 03/31 Chief Complaint: n/v/d x4days Senior Quantity Surveyor Required: No Is patient in pain?: No [...] tab 04/02/18 [Rx] PFSH Medical History Other watermaster (current) drug therapy (Chronic) Abnormal finding on cardiovascular stress test (Chronic) COPD (chronic obstructive pulmonary disease) (Chronic) CAD (coronary artery disease) (Chronic) HLD (hyperlipidemia) (Chronic) TIA (transient ischemic attack) (Chronic) Carotid bruit (Chronic) Coronary atherosclerosis of eyak coronary artery (Chronic) Hypertension (Chronic) Blood in [...] of the procedure. Raymond Felder MD Pager: [facility] [address] [place] [address], [address] [place] [address] Office: Orders Orders: Coding Level of Care Code Off vis,new,level 3 Diagnoses Gastrointestinal hemorrhage with melena K92.1 GI bleed type/associated pathology: melena 04/07/18 1444 <Electronically signed by Raymond Felder MD> Date Raymond Felder MD Cosigner Signature: Date (if applicable) CC: Robert Bonilla MD; Brian Degroot MD CHEST PA AND LATERAL Observed: 04/07/2018 Status: F Source: [place] 12:05 PM [facility] REPOSITORY [facility] Imaging Services [address] [place] [address] Chest PA and Lateral MR#: [id number] Acct: [id number] Name: ENDER ALVES Rep #: [id number] : 1935 F 82 From: Sulaiman Braswell DO PCP: Brian Degroot MD, Chi Status: REG CLI Study: Chest PA and Lateral Date of Exam: 04/07/18 Exam# [id number] Ordering Dr: Brian Degroot MD STUDY: X-RAY [...] Service support , CC: Brian Degroot MD Marine Designer: Signed ABD INC DECUB Observed: 04/07/2018 Status: F Source: [place] AND/OR ERECT 12:05 PM [facility] REPOSITORY [facility] Imaging Services [address] [place] [address] Abd Inc Decub and/or Erect MR#: [id number] Acct: [id number] Name: ENDER ALVES Rep #: [id number] : 1935 F 82 From: Noe Ortiz MD PCP: Brian Degroot MD, Chi Status: REG CLI Study: Abd Inc Decub and/or Erect Date of Exam: 04/07/18 Exam# [id number] Ordering Dr: rBian Degroot MD STUDY: X-RAY - ABDOMEN/PELVIS REASON [...] Service support , CC: Brian Degroot MD Marine Designer: Signed CBC W/DIFF, AUTOMATED Collected: 04/07/2018 Status: C Source: [place] 11:55 AM [facility] REPOSITORY TYPE CODE TESTS RESULT OUT OF [...] 04/07/18 1612 PATH REV previously reported as: Oliva francisco Performed By: #### L100.0100 #### [facility] [address] [place], [address] 12 LEAD ELECTROCARDIOGRAM Observed: 04/02/2018 Status: F Source: [place] 2:13 PM [facility] REPOSITORY [facility] Cardiovascular Services [address] [facility] [place] [address] 12 Lead EKG 03/31/18711 MR#: [id number] Acct: [id number] Name: ENDER ALVES Rep #: [id number] : 1935 82 From: Robert Bonilla MD Attending Dr: Catrachito Oden MD Status: ADM IN Ordering Dr: Marito Hutson MD Date: 03/31/18 Location: [facility] Sex: F C Admitted: 03/31/18 Test Reason [...] ECG Confirmed by ROBERT BONILLA MD ([id number]), assistant editor JUANIS PLUNKETT ([id number]) on 04/02/2018 2:13:01 PM Referred By: MERYL Confirmed By:ROBERT BONILLA MD 04/02/18 1413 Date Robert Bonilla MD CC: Catrachito Oden MD; Marito Hutson MD; Brian Degroot MD Signed 12 LEAD ELECTROCARDIOGRAM Observed: 04/02/2018 Status: F Source: [place] 2:12 PM [facility] Cardiovascular Services [address] [place] [address] 12 Lead EKG 03/31/18 0756 MR#: [id number] Acct: [id number] Name: ENDER ALVES Rep #: [id number] : 1935 82 From: Robert Bonilla MD Attending Dr: Catrachito Oden MD Status: ADM IN Ordering Dr: Marito Hutson MD Date: 03/31/18 Location: [facility] Sex: F C Admitted: 03/31/18 Test Reason [...] ECG Confirmed by IRENE CORONA, ROBERT ([id number]), assistant editor JUANIS PLUNKETT ([id number]) on 04/02/2018 2:12:36 PM Referred By: MERYL Confirmed By:ROBERT BONILLA MD 04/02/18 1412 Date Robert Bonilla MD CC: Catrachito Oden MD; Marito Hutson MD; Brian Dgeroot MD Signed DISCHARGE SUMMARY Observed: 04/02/2018 Status: F Source: [place] 1:12 PM [facility] REPOSITORY [facility] Medical Records Department [address] [place] [address] Discharge Summary 04/02/18 1239 MR#: [id number] Acct: [id number] Name: ENDER ALVES Rep #: [id number] : 1935 82 From: Lillian MONROY PCP: Zane CORONA,Brian Kowalski Status: ADM IN Y [facility] <Lillian Dobson - Last Filed: 04/02/18 12:51> [...] - Successful angioplasty AND Promus JESSICA of eyak OM PCI @ [facility] stent SVG-OM 01/10 Aortocoronary bypass status (Chronic) CABG SVG to DG, OM AND RCA Carotid bruit (Chronic) Coronary atherosclerosis of eyak coronary artery (Chronic) Hypertension (Chronic) Hospital Course and Treatment Imaging Results: Diagnostic Data Chest X-Ray 03/31/18 07:37 IMPRESSION: Left pulmonary infiltrates with blunting of the left costophrenic angle. Radiographic follow-up is recommended. Electronically Signed: Farzad Banks MD at 7:57 EDT Tel [phone], Service support , Operations: None Procedures: None [...] secondary to sepsis. Patient follows with Dr. Bnoilla. She will continue home beta-liana regimen. Mild [...] Follow Up With: Raymond Felder MD - [phone] When: 1 Week Disposition: Home Minutes spent [...] - Successful angioplasty AND Promus JESSICA of eyak OM PCI @ [facility] stent SVG-OM 01/10 Aortocoronary bypass status (Chronic) CABG SVG to DG, OM AND RCA Carotid bruit (Chronic) Coronary atherosclerosis of eyak coronary artery (Chronic) Hypertension (Chronic) Hospital Course [...] NPC Code Visit Inpatient E AND M: 66715 Disch Hosp 04/02/18 1251 <Electronically signed by Lillian Dobson ENVIRONMENTAL MARKETING REPRESENTATIVE-C> Date Lillian GILLETTEC 04/02/18 1312<Electronically signed by Catrachito Oden MD> Cosigner Signature (if applicable): Date Catrachito Oden MD CC: PORFIRIO Dobson; Catrachito Oden MD; Brian Degroot MD Signed DISCHARGE INSTRUCTION Observed: 04/02/2018 Status: F Source: [place] 12:52 PM [facility] REPOSITORY [facility] Medical Records Department [address] [place] [address] Instructions for Home/Discharge Instructions 04/02/18 1224 MR#: [id number] Acct: [id number] Name: ENDER ALVES Rep #: [id number] : 1935 82 From: Lillian MONROY PCP: Zane CORONA,Brian Kowalski Status: ADM IN [...] an appointment. You can call to schedule [phone]. Allergies/Adverse Reactions: Allergies No Known Allergies Allergy [...] 2 each PO BID 03/31/18 Insulin Glargine,Hum.rec.anlog [Toudomenico Solostar] 27 unit SQ QHS 03/31/18 Lubiprostone [...] signed by Lillian Dobson NP-C> Date Lillian Dosbon NP-C CC: Brian Degroot MD BEDSIDE GLUCOSE Collected: 04/02/2018 Status: F Source: [place] 11:23 AM [facility] REPOSITORY TYPE CODE TESTS RESULT OUT OF REFERENCE UNITS RANGE LAB L501.080 70-110 mg/dL High BEDSIDE GLU 197 Result Comment: MANAGEMENT OF PATIENT CARE PER NURSING PROTOCOL Performed By: #### L501.080 #### [facility] Point of Care [address] [place] [address] BEDSIDE GLUCOSE Collected: 04/02/2018 Status: F Source: [place] 6:56 AM [facility] REPOSITORY TYPE CODE TESTS RESULT OUT OF REFERENCE UNITS RANGE LAB L501.080 70-110 mg/dL High BEDSIDE GLU 117 Result Comment: MANAGEMENT OF PATIENT CARE PER NURSING PROTOCOL Performed By: #### L501.080 #### [facility] Point of Care [address] [facility] [place] [address] CBC W/DIFF, AUTOMATED Collected: 04/02/2018 Status: F Source: [place] 5:15 AM [facility] REPOSITORY TYPE CODE TESTS RESULT OUT OF [...] Lymph 0.69 Performed By: #### L100.0100 #### [facility] [address] [place] [address]. [place], [place], [address] BASIC METABOLIC Collected: 04/02/2018 Status: F Source: [place] PROFILE (BMP) 5:15 AM [facility] REPOSITORY TYPE CODE TESTS RESULT OUT OF [...] 9 Performed By: #### L500.2500, L501.5200 #### [facility] [address] [facility] [place], [address] MAGNESIUM Collected: 04/02/2018 Status: F Source: [place] 5:15 AM [facility] REPOSITORY TYPE CODE TESTS RESULT OUT OF RANGE REFERENCE UNITS LAB L501.5200 1.6-2.6 mg/dL Normal MG 1.9 Performed By: #### L500.2500, L501.5200 #### [facility] [address] [facility] [place], [address] BEDSIDE GLUCOSE Collected: 04/01/2018 Status: F Source: [place] 10:19 PM [facility] REPOSITORY TYPE CODE TESTS RESULT OUT OF REFERENCE UNITS RANGE LAB L501.080 70-110 mg/dL High BEDSIDE GLU 205 Result Comment: MANAGEMENT OF PATIENT CARE PER NURSING PROTOCOL Performed By: #### L501.080 #### [facility] Point of Care [address] [facility] [place] [address] BEDSIDE GLUCOSE Collected: 04/01/2018 Status: F Source: [place] 4:02 PM [facility] REPOSITORY TYPE CODE TESTS RESULT OUT OF REFERENCE UNITS RANGE LAB L501.080 70-110 mg/dL High BEDSIDE GLU 145 Result Comment: MANAGEMENT OF PATIENT CARE PER NURSING PROTOCOL Performed By: #### L501.080 #### [facility] Point of Care [address] [place] [address] BEDSIDE GLUCOSE Collected: 04/01/2018 Status: F Source: [place] 11:58 AM [facility] REPOSITORY TYPE CODE TESTS RESULT OUT OF REFERENCE UNITS RANGE LAB L501.080 70-110 mg/dL High BEDSIDE GLU 175 Result Comment: MANAGEMENT OF PATIENT CARE PER NURSING PROTOCOL Performed By: #### L501.080 #### [facility] Point of Care [address] [place] [address] BEDSIDE GLUCOSE Collected: 04/01/2018 Status: F Source: [place] 6:58 AM [facility] REPOSITORY TYPE CODE TESTS RESULT OUT OF REFERENCE UNITS RANGE LAB L501.080 70-110 mg/dL High BEDSIDE GLU 115 Result Comment: MANAGEMENT OF PATIENT CARE PER NURSING PROTOCOL Performed By: #### L501.080 #### [facility] Point of Care [address] [place] [address] PROTHROMBIN TIME W/INR Collected: 04/01/2018 Status: F Source: [place] 5:35 AM [facility] REPOSITORY TYPE CODE TESTS RESULT OUT OF RANGE REFERENCE UNITS LAB L300.4150 11.7-14.9 SECONDS Normal PROTIME 14.9 LAB L300.4200 Normal INR 1.2 Performed By: #### L300.3900 #### [facility] [address] [facility] [address] BASIC METABOLIC Collected: 04/01/2018 Status: F Source: [place] PROFILE (BMP) 5:35 AM [facility] REPOSITORY TYPE CODE TESTS RESULT OUT OF [...] GAP 7 Performed By: #### L500.2500 #### [facility] [address] [place], [place] [address]all [address]ordi. [place], [place], [address] CBC W/DIFF, AUTOMATED Collected: 04/01/2018 Status: F Source: [place] 5:35 AM [facility] REPOSITORY TYPE CODE TESTS RESULT OUT OF [...] Lymph 0.55 Performed By: #### L100.0100 #### [facility] [address] [facility] [place], [place], [address] T4 FREE DIRECT Collected: 04/01/2018 Status: F Source: [place] 5:35 AM [facility] REPOSITORY Order Comment: Comments: ok to add on TYPE CODE TESTS RESULT OUT OF RANGE REFERENCE UNITS LAB L506.0400 0.76-1.46 ng/dL Normal T4 FREE 1.35 DIRECT Performed By: #### L506.0400 #### [facility] [id number] FREE T3 Collected: 04/01/2018 Status: F Source: [place] 5:35 AM [facility] REPOSITORY Order Comment: Comments: ok to add on TYPE CODE TESTS RESULT OUT OF RANGE REFERENCE UNITS LAB L501.99088 2.18-3.98 pg/mL Low FREE T3 < 0.5 Performed By: #### L501.73977 #### [facility] [place], [place], [address] Observed: 03/31/2018 Status: F Source: [place] STOOL OCCULT BLOOD 11:50 PM [facility] IFOB REPOSITORY STOB iFOB Normal Reference Range = Negative Occult Blood Positive ORGANISM 1: OCCULT BLOOD POSITIVE Performed By: #### M100.7900 #### [facility] [address] [facility] [address] [place], [place], [address] Observed: 03/31/2018 Status: C Source: [place] LEGIONELLA ANTIGEN 11:50 PM [facility] URINE REPOSITORY CRITICAL VALUE VERIFIED. CALLED TO VIDYA ORTIZ 04/01/18 0023 Rhina Mcnally. RESULTS READ BACK BY SAME . Legionella, UR Legionella Antigen result interpretation: POSITIVE Presumptive positive for Legionella pneumophila serogroup 1 antigen in urine, suggesting current or past infection. Legionella Ag, Urine Positive (See interpretation below) ORGANISM 1: Legionella Antigen Performed By: #### M300.4500 #### [facility] [address] [facility] [place], [address] STREP Observed: 03/31/2018 Status: F Source: [place] PNEUMONIAE ANTIG(UR,CSF) 11:50 PM [facility] REPOSITORY S pneumo Ag URINE INTERPRETATION Negative Urine Presumptive negative for pneumococcal pneumonia, suggesting no current or recent pneumococcal infection. Infection due to S pneumoniae cannot be ruled out since the antigen present in the sample may be below the detection limit of the test. Strep pneumo Test Negative URINE (See interpretation below) Performed By: #### M300.4600 #### [facility] [address] [facility] [place], [address] BEDSIDE GLUCOSE Collected: 03/31/2018 Status: F Source: [place] 9:37 PM [facility] REPOSITORY TYPE CODE TESTS RESULT OUT OF REFERENCE UNITS RANGE LAB L501.080 70-110 mg/dL High BEDSIDE GLU 214 Result Comment: MANAGEMENT OF PATIENT CARE PER NURSING PROTOCOL Performed By: #### L501.080 #### [facility] Point of Care [address] [place] [address] EMERGENCY DEPARTMENT Observed: 03/31/2018 Status: F Source: [place] SUMMARY 4:31 PM [facility] REPOSITORY [facility] Medical Records Department [address] [place] [address] Emergency Department Summary 03/31/18 0843 MR#: [id number] Acct: [id number] Name: ENDER ALVES Rep #: [id number] : 1935 82 From: Marito Hutson MD PCP: Zane CORONA,Brian Chi Status: ADM IN - ER Visit Summary [...] 4. SVT. This note was generated with [employer] software. It may contain incorrect words, spelling, [...] your Primary Care Provider. Call [facility] ([phone]) or report to the closest Emergency Room. Call 911 if necessary. 03/31/18 1631 <Electronically signed by Marito Hutson MD> Date Marito Hutson MD Cosigner Signature (If Indicated): Date CC: Brian Degroot MD BEDSIDE GLUCOSE Collected: 03/31/2018 Status: F Source: [place] 4:25 PM [facility] REPOSITORY TYPE CODE TESTS RESULT OUT OF REFERENCE UNITS RANGE LAB L501.080 70-110 mg/dL High BEDSIDE GLU 253 Result Comment: Dr Bernal Followed Insulin Given MANAGEMENT OF PATIENT CARE PER NURSING PROTOCOL Performed By: #### L501.080 #### [facility] Point of Care [address] [place] [address] Observed: 03/31/2018 Status: F Source: [place] CDIFF (MOLECULAR) 4:15 PM [facility] REPOSITORY Is the patient receiving laxatives? N New/unexplained onset of 3 or more stools in past 24 hrs? Y Cdiff-Molecular Normal Reference Range = Negative C. Diff DNA Negative- No toxigenic C. Diff DNA Detected NAAT METHOD Testing was performed using nucleic acid amplification Performed By: #### M100.6796 #### [facility] [address] [place], [place], [address] URINALYSIS, COMPLETE Collected: 03/31/2018 Status: F Source: [place] 3:00 PM [facility] REPOSITORY Order Comment: Order Date: 03/31/18 How [...] Normal AMORPHOUS Performed By: #### L400.0001 #### [facility] [address] [place], [address] HISTORY AND PHYSICAL Observed: 03/31/2018 Status: F Source: [place] EXAM 1:45 PM [facility] REPOSITORY [facility] Medical Records Department [address] [place] [address] History and Physical 03/31/18 1306 MR#: [id number] Acct: [id number] Name: ENDER ALVES Rep #: [id number] : 1935 82 From: Anish PERRY PCP: Zane CORONA,Brian Kowalski Status: ADM IN Y [facility] <Anish Villanueva - Last Filed: 03/31/18 13:10> [...] sick contacs. She travelled by plane to [place] recently. She denies CP or pleurisy. [] [...] - Successful angioplasty AND Promus JESSICA of eyak OM PCI @ [facility] stent SVG-OM 01/10 Aortocoronary bypass status (Chronic) CABG SVG to DG, OM AND RCA Carotid bruit (Chronic) Coronary atherosclerosis of eyak coronary artery (Chronic) Hypertension (Chronic) Medical History: Medical History (Last Reviewed 11/24/17 @ 13:03 by Carol Barba) CAD (coronary artery disease) (Chronic) I25.10 HLD (hyperlipidemia) (Chronic) E78.5 TIA (transient ischemic attack) (Chronic) G45.9 Carotid bruit (Chronic) R09.89 Coronary atherosclerosis of eyak coronary artery (Chronic) I25.10 Hypertension (Chronic) I10 Abnormal finding on cardiovascular stress test R94.39 COPD (chronic obstructive pulmonary disease) J44.9 Other watermaster (current) drug therapy Z79.899 Allergies No Known [...] - Successful angioplasty AND Promus JESSICA of eyak OM PCI @ [facility] stent SVG-OM 01/10 Aortocoronary bypass status (Chronic) Z95.1 CABG SVG to DG, OM AND RCA Surgical History: appendectomy, cholecystectomy, coronary bypass surgery, hysterectomy Psychiatric History: No pertinent psych hx LAP CHECKER History: No pertinent LAP CHECKER history Lives: Alone Smoking Status: Former smoker [...] Villanueva PA-C under the supervision of Doctor Clarissa. <Kel Romo - Last Filed: 03/31/18 13:45> [...] Carotid bruit (Chronic) R09.89 Coronary atherosclerosis of eyak coronary artery (Chronic) I25.10 Hypertension (Chronic) I10 Abnormal finding on cardiovascular stress test R94.39 COPD (chronic obstructive pulmonary disease) J44.9 Other [facility] (current[facility] drug therapy Z79.899 Allergies No Known Allergies Allergy (Verified 03/31/18 07:21) Surgical History: Surgical History (Last Reviewed 03/31/18 @ 13:40 by Kel Romo DO) History of percutaneous transluminal coronary angioplasty (Chronic) Z98.61 PTCA with Taxus stent to SVG to OM, 2005 - 03/05/10 PTCA/stent (JESSICA) to proximal to mod SVG to 2nd obtuse marginal artery - Successful angioplasty AND Promus JESSICA of eyak OM PCI @ [facility] stent SVG-OM 01/10 Aortocoronary bypass status (Chronic) [...] with the above note by the physician real estate executive assistant. 1. Sepsis * Present on arrival * [...] Lovenox Code Visit Inpatient E AND M: 68990 Init Hosp L3 03/31/18 1325 <Electronically signed by Anish PERRY> Date Anish PERRY 03/31/18 1345<Electronically signed by Kel Romo DO> Cosigner Signature: Date (if applicable) Kel Romo DO CC: VICKY Villanueva; Kel Romo DO; Brian Degroot MD Signed BEDSIDE GLUCOSE Collected: 03/31/2018 Status: F Source: [place] 11:09 AM [facility] REPOSITORY TYPE CODE TESTS RESULT OUT OF REFERENCE UNITS RANGE LAB L501.080 70-110 mg/dL High BEDSIDE GLU 226 Result Comment: Dr Bernal Followed Insulin Given MANAGEMENT OF PATIENT CARE PER NURSING PROTOCOL Performed By: #### L501.080 #### [facility] Point of Care [address] [place] [address] Observed: 03/31/2018 Status: F Source: [place] CULTURE, BLOOD (WB) 8:20 AM [facility] REPOSITORY BC No growth in 5 days. Performed By: #### M200.1000 #### [facility] [address] [place] [address], [address] CHEST 1 VIEW Observed: 03/31/2018 Status: F Source: [place] (PORTABLE) 7:32 AM [facility] REPOSITORY [facility] Imaging Services [address] [place] [address] Chest 1 View (Portable) MR#: [id number] Acct: [id number] Name: ENDER ALVES Rep #: [id number] : 1935 F 82 From: Farzad Banks MD PCP: Brian Degroot MD, Chi Status: REG ER Study: Chest 1 View (Portable) Date of Exam: 03/31/18 Exam# [id number] Ordering Dr: Marito Hutson MD STUDY: X-RAY [...] Farzad Banks MD at 7:57 EDT Tel [phone], Service support , CC: Marito Hutson MD; Brian Degroot MD Marine Designer: Signed CBC W/DIFF, AUTOMATED Collected: 03/31/2018 Status: F Source: [place] 7:06 AM [facility] REPOSITORY TYPE CODE TESTS RESULT OUT OF [...] Lymph 0.61 Performed By: #### L100.0100 #### [facility] [address] [place], [place], [address] BASIC METABOLIC Collected: 03/31/2018 Status: F Source: [place] PROFILE ([facility]) 7:06 AM [facility] REPOSITORY TYPE CODE TESTS RESULT OUT OF [...] By: #### L500.2500, L500.3400, L501.2450, L501.4010 #### [facility] [address] [place], [place], [address] LIVER PROFILE Collected: 03/31/2018 Status: F Source: [place] 7:06 AM [facility] REPOSITORY TYPE CODE TESTS RESULT OUT OF [...] By: #### L500.2500, L500.3400, L501.2450, L501.4010 #### [facility] [address] [place], [address] LIPASE Collected: 03/31/2018 Status: F Source: [place] 7:06 AM [facility] REPOSITORY TYPE CODE TESTS RESULT OUT OF RANGE REFERENCE UNITS LAB L501.2450 73-393 U/L Normal LIPASE 133 Performed By: #### L500.2500, L500.3400, L501.2450, L501.4010 #### [facility] [address] [place], [address] TROPONIN-I Collected: 03/31/2018 Status: F Source: [place] 7:06 AM [facility] REPOSITORY TYPE CODE TESTS RESULT OUT OF RANGE REFERENCE UNITS LAB L501.4010 <0.045 ng/mL Normal 0.019 TROPONIN-I Result Comment: TROPONIN-I EXPECTED VALUES <0.045 Negative 0.045 - 0.590 Consistent with Cardiac Damage > OR = 0.600 Critical Value Not every elevated troponin is indicative of NH. These values should be used with clinical judgement in examining the patient's clinical picture for diagnosis. To establish a diagnosis of NH versus myocardial injury, there must be a demonstrated rise and/or fall in the troponin values, in addition to ischemic symptoms, EKG changes, new regional wall motion abnormality, and/or angiographical evidence. PLEASE NOTE: REFERENCE RANGES EDITED 18 Performed By: #### L500.2500, L500.3400, L501.2450, L501.4010 #### [facility] [address] [place], [address] PROTHROMBIN TIME W/INR Collected: 03/31/2018 Status: F Source: [place] 7:06 AM [facility] REPOSITORY TYPE CODE TESTS RESULT OUT OF RANGE REFERENCE UNITS LAB L300.4150 11.7-14.9 SECONDS High PROTIME 15.0 LAB L300.4200 Normal INR 1.2 Performed By: #### L300.3900, L300.4310 #### [facility] [address] [place], [address] PARTIAL THROMBOPLAST Collected: 03/31/2018 Status: F Source: [place] TIME 7:06 AM [facility] REPOSITORY TYPE CODE TESTS RESULT OUT OF REFERENCE UNITS RANGE LAB L300.4310 24.1-36.2 Seconds High PTT 41.9 Performed By: #### L300.3900, L300.4310 #### [facility] [address] [place], [address] MAGNESIUM Collected: 03/31/2018 Status: F Source: [place] 7:06 AM [facility] REPOSITORY TYPE CODE TESTS RESULT OUT OF RANGE REFERENCE UNITS LAB L501.5200 1.6-2.6 mg/dL Normal MG 1.9 Performed By: #### L501.5200 #### [facility] [address] [place], [address] LACTIC ACID Collected: 03/31/2018 Status: F Source: [place] 7:06 AM [facility] REPOSITORY Order Comment: Yes/No query for Sepsis Lactate Rule Y TYPE CODE TESTS RESULT OUT OF RANGE REFERENCE UNITS LAB L503.6005 0.4-2.0 mmol/L Normal LACTIC ACID 1.6 Performed By: #### L503.6005 #### [facility] [address] [place], [address] THYROID STIM HORMONE Collected: 03/31/2018 Status: F Source: [place] (TSH) 7:06 AM [facility] REPOSITORY Order Comment: Comments: ok to add on TYPE CODE TESTS RESULT OUT OF RANGE REFERENCE UNITS LAB L501.9520 0.358-3.74 uIU/mL Low TSH 0.25 Performed By: #### L501.9520 #### [facility] [address] [place], [address] Observed: 03/31/2018 Status: F Source: [place] CULTURE, BLOOD (WB) 7:06 AM [facility] REPOSITORY BC No growth in 5 days. Performed By: #### M200.1000 #### [facility] [address] [place], [address] CBC W/DIFF, AUTOMATED Collected: 03/26/2018 Status: F Source: [place] 3:27 PM [facility] REPOSITORY TYPE CODE TESTS RESULT OUT OF [...] 2.47 Performed By: #### L100.0100, L101.9900 #### [facility] [address] [place], [address] ERYTHROCYTE SED RATE Collected: 03/26/2018 Status: F Source: [place] 3:27 PM [facility] REPOSITORY TYPE CODE TESTS RESULT OUT OF RANGE REFERENCE UNITS LAB L102.0000 0-30 mm/hr High SED RATE 41 Performed By: #### L100.0100, L101.9900 #### [facility] [address] [place], [place], [address] BASIC METABOLIC Collected: 03/26/2018 Status: F Source: [place] PROFILE (BMP) 3:27 PM [facility] REPOSITORY TYPE CODE TESTS RESULT OUT OF [...] Performed By: #### L500.2500, L501.1400, L501.6710 #### [facility] [address] [place], [place], [address] URIC ACID Collected: 03/26/2018 Status: F Source: [place] 3:27 PM [facility] REPOSITORY TYPE CODE TESTS RESULT OUT OF RANGE REFERENCE UNITS LAB L501.1400 2.6-6.0 mg/dL Normal URIC 4.1 Result Comment: The drugs N-Acetylcysteine and Metamizole may falsely depress this assay. Performed By: #### L500.2500, L501.1400, L501.6710 #### [facility] [address] [place], [address] CRP Collected: 03/26/2018 Status: F Source: [place] 3:27 PM [facility] REPOSITORY TYPE CODE TESTS RESULT OUT OF RANGE REFERENCE UNITS LAB L501.6710 0.0-3.0 mg/L High 19.50 C-REACTIVE PROT Result Comment: C-Reactive Protein (CRP) provides useful information for the diagnosis, therapy and monitoring of inflammatory processes and associated diseases. For the evaluation of Relative Risk for Cardiovascular Disease, a High Sensitivity CRP (HSCRP) should be ordered. Performed By: #### L500.2500, L501.1400, L501.6710 #### [facility] [address] [place], [address] CBC W/DIFF, AUTOMATED Collected: 02/11/2018 Status: F Source: [place] 4:15 PM [facility] REPOSITORY TYPE CODE TESTS RESULT OUT OF [...] Lymph 2.92 Performed By: #### L100.0100 #### [facility] [address] [place], [place], [address] VITAMIN D,25 HYDROXY Collected: 02/11/2018 Status: F Source: [place] 4:15 PM [facility] REPOSITORY TYPE CODE TESTS RESULT OUT OF RANGE REFERENCE UNITS LAB L506.1000 29.95-100.01 ng/mL Normal Vitamin D 32.2 25-OH Result Comment: Vitamin D 25(OH) Status Range Deficiency <20 ng/mL (50nmol/L) Insuffciency 20 - 30 ng/mL (50 - 75 nmol/L) Sufficiency 30 - 100 ng/mL (75 - 250 nmol/L) Toxicity >100 ng/mL (>250 nmol/L) Performed By: #### L506.1000 #### [facility] [address] [place], [place], [address] COMPREHENSIVE METABOLIC Collected: 02/11/2018 Status: F Source: [facility] 4:15 PM [facility] REPOSITORY TYPE CODE TESTS RESULT OUT OF [...] 8 Performed By: #### L500.4050, L501.9520 #### [facility] [address] [place], [place], [address] THYROID STIM HORMONE Collected: 02/11/2018 Status: F Source: [place] (TSH) 4:15 PM [facility] REPOSITORY TYPE CODE TESTS RESULT OUT OF RANGE REFERENCE UNITS LAB L501.9520 0.358-3.74 uIU/mL Normal TSH 0.84 Performed By: #### L500.4050, L501.9520 #### [facility] [address] [place], [place], [address] BILAT BRST SCREEN Observed: 02/05/2018 Status: F Source: [place] PERICO ADD-ON 7:30 AM [facility] REPOSITORY [facility] Imaging Services [address] [place] [address] Bilat Brst Screen Perico Add-On MR#: [id number] Acct: [id number] Name: ENDER ALVES Rep #: [id number] : 1935 F 82 From: Farzad Banks MD PCP: Brian Degroot MD, Chi Status: REG CLI Study: Bilat Brst Screen Perico Add-On Date of Exam: 02/05/18 Exam# [id number] Ordering Dr: Brian Degroot MD MAMMOGRAPHY - [...] delay biopsy of a clinically suspicious abnormality. [id number] Electronically Signed: Farzad Banks MD at 10:25 EDT Tel [phone], Service support , CC: Brian Degroot MD Marine Designer: Signed SCREENING MAMM (CAD), Observed: 02/05/2018 Status: F Source: [place] BILAT 7:30 AM [facility] REPOSITORY [facility] Services [address] [place] [address] SCREENING MAMM (CAD), BILAT MR#: [id number] Acct: [id number] Name: ENDER ALVES Rep #: [id number] : 1935 F 82 From: Farzad Banks MD PCP: Brian Degroot MD, Chi Status: REG CLI Study: SCREENING MAMM (CAD), BILAT Date of Exam: 02/05/18 Exam# [id number] Ordering Dr: Brian Degroot MD MAMMOGRAPHY - [...] delay biopsy of a clinically suspicious abnormality. [id number] Electronically Signed: Farzad Banks MD at 10:25 EDT Tel [phone], Service support , CC: Brian Degroot MD Marine Designer: Signed KIDNEY AND BLADDER Observed: 01/15/2018 Status: F Source: [place] 2:24 PM [facility] REPOSITORY [facility] Imaging Services [address] [place] [address] Kidney and Bladder MR#: [id number] Acct: [id number] Name: ENDER ALVES Rep #: [id number] : 1935 F 82 From: Eden Lipscomb MD PCP: Brian Degroot MD, Chi Status: REG CLI Study: Kidney and Bladder Date of Exam: 01/15/18 Exam# [id number] Ordering Dr: Erendira Palacios DO STUDY: RENAL [...] Lipscomb MD at 16:08 EDT Tel Direct: [phone], Service support , CC: Erendira Palacios DO; Brian Degroot MD Marine Designer: Signed BASIC METABOLIC Collected: 01/09/2018 Status: F Source: [place] PROFILE ([facility]) 10:25 AM [facility] REPOSITORY TYPE CODE TESTS RESULT OUT OF [...] GAP 8 Performed By: #### L500.2500 #### [facility] [address] [place], [address] CHEST PA AND LATERAL Observed: 01/01/2018 Status: F Source: [place] 4:48 PM [facility] REPOSITORY [facility] Imaging Services [address] [place] [address] Chest PA and Lateral MR#: [id number] Acct: [id number] Name: ENDER ALVES Rep #: [id number] : 1935 F 82 From: Armando Meredith MD PCP: Zane CORONA,Brian Kowalski Status: REG CLI Study: Chest PA and Lateral Date of Exam: 01/01/18 Exam# [id number] Ordering Dr: Brian Degroot MD STUDY: X-RAY [...] Service support , CC: Brian Degroot MD Marine Designer: Signed Observed: 01/01/2018 Status: F Source: [place] RESPIRATORY PANEL 4:40 PM [facility] MOLECULAR REPOSITORY RP PANEL ADENOVIRUS Not Detected [...] acid amplification Performed By: #### M100.638 #### [facility] [address] [place], [place], [address] BASIC METABOLIC Collected: 01/01/2018 Status: F Source: [place] PROFILE (BMP) 4:13 PM [facility] REPOSITORY TYPE CODE TESTS RESULT OUT OF [...] GAP 9 Performed By: #### L500.2500 #### [facility] [address] [place], [address] CBC W/DIFF, AUTOMATED Collected: 01/01/2018 Status: F Source: [place] 4:13 PM [facility] REPOSITORY TYPE CODE TESTS RESULT OUT OF [...] Lymph 3.06 Performed By: #### L100.0100 #### [facility] [address] [place] [address]. [place], [address] TISSUE BIOPSY Observed: 12/02/2017 Status: F Source: [place] 10:26 AM [facility] REPOSITORY Patient: ENDER ALVES : 1935 (82/F) Acct Num: [id number] Phys: Zane CORONA,Brian [facility] Unit Num: [id number] Loc: POLAB3 Specimen: [id number] Received: 12/02/17 163 Spec Type: Tissue Bx TISSUES TISSUES: A. [...] cassette. / AM:justice 12/03/17 TC: 4 CPT: 27901 x2, 52165 x2 HEADER OPERATION: Not noted PRE-OP DIAGNOSIS: [...] on file> Performed By: #### PTISS #### [facility] [address] [place] [address]. [place], [address] CBC W/DIFF, AUTOMATED Collected: 11/26/2017 Status: F Source: [place] 2:58 PM [facility] REPOSITORY TYPE CODE TESTS RESULT OUT OF [...] Lymph 2.64 Performed By: #### L100.0100 #### [facility] [address] [place], [place], [address] VITAMIN D,25 HYDROXY Collected: 11/26/2017 Status: F Source: [place] 2:58 PM [facility] REPOSITORY TYPE CODE TESTS RESULT OUT OF RANGE REFERENCE UNITS LAB L506.1000 29.95-100.01 ng/mL Normal Vitamin D 30.6 25-OH Result Comment: Vitamin D 25(OH) Status Range Deficiency <20 ng/mL (50nmol/L) Insuffciency 20 - 30 ng/mL (50 - 75 nmol/L) Sufficiency 30 - 100 ng/mL (75 - 250 nmol/L) Toxicity >100 ng/mL (>250 nmol/L) Performed By: #### L506.1000 #### [facility] [address] [place], [place], [address] COMPREHENSIVE METABOLIC Collected: 11/26/2017 Status: F Source: [place] 2:58 PM [facility] REPOSITORY TYPE CODE TESTS RESULT OUT OF [...] 11 Performed By: #### L500.4050, L501.9520 #### [facility] [address] [place], [address] THYROID STIM HORMONE Collected: 11/26/2017 Status: F Source: [place] (TSH) 2:58 PM [facility] REPOSITORY TYPE CODE TESTS RESULT OUT OF RANGE REFERENCE UNITS LAB L501.9520 0.358-3.74 uIU/mL Normal TSH 1.85 Performed By: #### L500.4050, L501.9520 #### [place] [facility] [address] [place], [address] CARDIOLOGY VISIT Observed: 11/25/2017 Status: F Source: [place] REPORT 7:24 PM [facility] REPOSITORY [facility] [address] [place] [address] OFFICE VISIT Date of Service: 11/24/17 MR#: [id number] Acct: [id number] Name: ENDER ALVES Rep #: [id number] : 1935 Provider: Carol Serrano Age/Sex: 82/F Location: [facility] Status: Signed HPI HPI Details: ENDER [...] SUBLINGUAL Q5M PRN 12/21/13 [History Confirmed 11/24/17] [place]-3 Fatty Acids/Fish Oil [[place] 3 1,000 mg Softgel] 1 ea PO [...] 11/24/17] Ejection fraction %: 60 to 64 [facility] Medical History CAD (coronary artery disease) (Chronic) HLD (hyperlipidemia) (Chronic) TIA (transient ischemic attack) (Chronic) Carotid bruit (Chronic) Coronary atherosclerosis of eyak coronary artery (Chronic) Hypertension (Chronic) Abnormal finding on cardiovascular stress test (Chronic) COPD (chronic obstructive pulmonary disease) (Chronic) Other watermaster (current) drug therapy (Chronic) Surgical History History [...] AND Plan 1. Coronary artery disease involving eyak coronary artery of ey[place] heart without angina pectoris I25.10 Plan - [...] prior to saving. Follow Up 6 Months (SPECIAL NEEDS NANNY) Coding Level of Care Code Off vis,est,level 3 Diagnoses Coronary artery disease involving eyak coronary artery of eyak heart without angina pectoris I25.10 Coronary Disease-Associated Artery/Lesion type: eyak artery [place] vs. transplanted heart: eyak heart Associated angina: without angina Essential hypertension I10 Hypertension type: essential hypertension Pure hypercholesterolemia E78.00; E78.0 Hyperlipidemia type: pure hypercholesterolemia Coding Level of Care Code Off vis,est,level 3 Diagnoses Coronary artery disease involving eyak coronary artery of [place] heart without angina pectoris I25.10 Coronary Disease-Associated Artery/Lesion type: [place] artery [place] vs. transplanted heart: eyak heart Associated angina: without angina Essential hypertension I10 Hypertension type: essential hypertension Pure hypercholesterolemia E78.00; E78.0 Hyperlipidemia type: pure hypercholesterolemia 11/24/17 1400 <Electronically signed by Carol Serrano PA> Date Carol PERRY 11/25/17 1924<Electronically signed by Robert Bonilla MD> Cosigner Signature: Date (if applicable) Robert Bonilla MD CC: Brian Degroot MD LIVER PROFILE Collected: 11/21/2017 Status: F Source: [place] 9:41 AM [facility] REPOSITORY Order Comment: Order Date: 05/30/17 Order Info: 0788-1 - *Hepatic Function Panel Order Info: 70909-3 - *Lipid Profile CC PCP Comments: 12 [...] BILI 0.12 Performed By: #### L500.3400 #### [facility] [address] [place], [address] LIPID PROFILE Collected: 11/21/2017 Status: F Source: [place] 9:41 AM [facility] REPOSITORY Order Comment: Order Date: 05/30/17 Order Info: 0788-1 - *Hepatic Function Panel Order Info: 91387-9 - *Lipid Profile CC PCP Comments: 12 [...] VLDL 45 Performed By: #### L500.4100 #### [facility] [address] [place], [address] ALLERGIES ALLERGIES DATE TYPE / CODE NAME / CODE REACTION SEVERITY SOURCE 08/04/2018 Drug No Known Unknown [facility] Allergy/4160 Allergies/F00 Hospital 96562(SNOMED [id number](RXNOR Repository CT) M) ENCOUNTERS ENCOUNTERS ADMIT/DISCHARGE ACCOUNT ADMITTING ENCOUNTER LOCATION SOURCE NUMBER CLASS 10/08/2018 [id number] Ambulatory [facility] 5 [facility] ing:POLAB3 Repository 09/18/2018 [id number] Ambulatory [facility] 7 [facility] ing:POLAB3 Repository 09/15/2018 [id number] [facility] [place] [facility] Repository 09/08/2018 [id number] Ambulatory [place] 2 [facility] ing:LAB Repository 09/02/2018 [id number] Amb[facility] [place] 8 [facility] Repository 08/28/2018/ [id number] Ambulatory [place] 8 2 [facility] ing:PT Repository 08/14/2018 [id number] Ambulatory [place] 5 [facility] ing:RAD Repository 08/13/2018 [id number] Ambulatory [place] 6 [facility] ing:POLAB3 Repository 08/04/2018/ [id number] Gloria Nix Ambulatory [place] 8 2 [place] ing:XK9Hlmp: Repository TH580Oxz: 1 08/04/2018 [id number] Gloria Nix Ambulatory [facility]:B [place] 4 [place] [place] [facility] Repository 08/04/2018 [id number] Gloria Nix Ambulatory [facility]:B [place] 2 [place] Repository 08/04/2018 [id number] Gloria Nix Ambulatory [facility]MS[facility]:B [place] 7 [place] Repository 08/03/2018 [id number] Ambulatory [place] 0 [facility] ing:RAD Repository 07/30/2018/ [id number] Emergency [place] 8 6 [facility] ing:ED Repository 07/23/2018/ [id number] Ambulatory BMSBuilding:B [place] 8 2 [facility] Repository 07/22/2018 [id number] Ambulatory [place] 5 [facility] ing:MRI Repository 07/15/2018 [id number] Ambulatory [place] 9 [facility] ing:POLAB3 Repository 06/23/2018/ [id number] Ambulatory [place] 8 1 [facility] ing:ENRoom: Repository AC11 06/23/2018/ [id number] Ambulatory BMSBuilding:B [place] 8 1 [place].[facility] Repository 06/12/2018 [id number] Ambulatory [place] 0 [facility] ing:LAB.FUTUR Repository E 06/11/2018 [id number] Ambulatory [place] 4 [facility] ing:POLAB3 Repository 05/28/2018 [id number] Ambulatory [place] 9 [facility] ing:POLAB3 Repository 05/11/2018/ [id number] Ambulatory BMSBuilding:B [place] 8 8 [facility] Repository 05/05/2018 [id number] Ambulatory [place] 7 [facility] ing:POLAB3 Repository 05/04/2018 [id number] Ambulatory [place] 8 [facility] ing:POLAB3 Repository 04/30/2018 [id number] Ambulatory BMSBuilding:B [place] 1 [facility] Repository 04/24/2018/ [id number] Ambulatory [place] 8 7 [facility] ing:ENRoom: Repository AC10 04/24/2018 [id number] Ambulatory BMSBuilding:B [place] 0 [place].[facility] Repository 04/08/2018 [id number] Ambulatory [place] 7 [facility] ing:CT Repository 04/08/2018/ [id number] Ambulatory BMSBuilding:B [place] 8 0 [facility] Repository 04/07/2018/ [id number] Emergency [place] 8 5 [facility] ing:ED Repository 04/07/2018 [id number] Ambulatory BMSBuilding:B [place] 1 [facility] Repository 04/07/2018/ [id number] Ambulatory BMSBuilding:B [place] 8 4 [facility] Repository 04/07/2018 [id number] Ambulatory [place] 9 [facility] ing:POLAB3 Repository 03/31/2018/ [id number] Kel Romo Inpatient [place] 8 8 [facility] ing:PCURoom: Repository TXZ227Gzc: 1 03/31/2018 [id number] Kel Romo Ambulatory BMSBuilding:B [place] 8 [place].Critical access hospital Repository 03/31/2018 [id number] Kel Romo Ambulatory BMSBuilding:B [place] 4 [place].Critical access hospital Repository 03/31/2018 [id number] Kel Romo Ambulatory BMSBuilding:B [place] 8 [place].Critical access hospital Repository 03/26/2018 [id number] Ambulatory [place] 3 [facility] ing:POLAB3 Repository 02/11/2018 [id number] Ambulatory [place] 5 [facility] ing:POLAB3 Repository 02/05/2018 [id number] Ambulatory [place] 9 [facility] ing:OPBI Repository 01/15/2018 [id number] Ambulatory [place] 7 [facility] ing:US Repository 01/09/2018 [id number] Ambulatory [place] 1 [facility] ing:POLAB3 Repository 01/01/2018 [id number] Ambulatory [place] 9 [facility] ing:POLAB3 Repository 12/02/2017 [id number] Ambulatory [place] 4 [facility] ing:POLAB3 Repository 11/26/2017 [id number] Ambulatory [place] 4 [facility] ing:POLAB3 Repository 11/24/2017/ [id number] Ambulatory BMSBuilding:B [place] 8 3 [facility] Repository 11/24/2017 [id number] Ambulatory BMSBuilding:B [place] 1 [facility] Repository 11/21/2017 [id number] Ambulatory [place] 5 [facility] ing:LAB Repository PAYERS PAYERS ENCOUNTER GUARANTOR PAYER SUBSCRIBER SOURCE 10/08/2018 ENDER Patel Primary Insurance:MMO ENDER [place] [id number] [facility] LIVELYD[facility] DRAPT Number: [id number] [id number] Repository [address]Gnz: (330) Date:5550-94-57RU [phone] (HP) [address] [place] [phone]: 10/08/2018 Secondary NOT GIVENUNK [place] Insurance:SELF PAY [facility] Number: Effective Repository Date:2018-10-08 09/18/2018 ENDER L Primary Insurance:MMO ENDER L [place] [id number] MEDICAREPolicy LIVELYDOB: Community [address]LEYDA DRAPT Number: [id number] [id number] Repository [address]Wfd: (330) Date:2850-30-85BF [phone] (HP) [address] [place] [phone]: 09/18/2018 Secondary NOT GIVENUNK [place] Insurance:SELF PAY [facility] Number: Effective Repository Date:2018-09-18 09/15/2018 ENDER L Primary Insurance:MMO ENDER L [place] [id number] MEDICAREPolicy LIVELYDOB: Community [address]LEYDA DRAPT Number: [id number] [id number] Repository [address]App: (330) Date:1988-66-21HD [phone] () [address] [place] [phone]: 09/15/2018 Secondary NOT GIVENUNK [place] Insurance:SELF PAY [facility] Number: Effective Repository Date:2018-09-15 09/08/2018 ENDER L Primary Insurance:MMO ENDER L [place] [id number] MEDICAREPolicy LIVELYDOB: Community ALEYDA DRAPT Number: [id number] [id number] Repository [address]Cut: (330) Date:9623-94-79DQ [phone] (HP) [address] [place] [phone]: 09/08/2018 Secondary NOT GIVENUNK [place] Insurance:SELF PAY [facility] Number: Effective Repository Date:2018-09-08 09/02/2018 ENDER L Primary Insurance:MMO ENDER L [place] [id number] MEDICAREPolicy LIVELYDOB: Community [address]LEYDA DRAPT Number: [id number] [id number] Repository [address]Riq: (330) Date:5787-05-93YG [phone] (HP) [address] [address]UM: 09/02/2018 Secondary NOT GIVENUNK [place] Insurance:SELF PAY [facility] Number: Effective Repository Date:2018-09-02 08/28/2018 ENDER Patel Primary Insurance:MMO ENDER Patel [place] [id number] MEDICAREPolicy LIVELYDOB: Community [address]LEYDA DRAPT Number: [id number] [id number] Repository [address]Wpk: (330) Date:9777-33-03UE [phone] (HP) [address] [address]LR: 08/28/2018 Secondary NOT GIVENUNK [place] Insurance:SELF PAY [facility] Number: Effective Repository Date:2018-08-13 08/14/2018 ENDER L Primary Insurance:MMO ENDER [place] [id number] MEDICAREPolicy LIVELYDOB: Community [address]LEYDA DRAPT Number: [id number] [id number] Repository [address]Uyi: (330) Date:6011-14-24GG [phone] (HP) [address] [place] [phone]: 08/14/2018 Secondary NOT GIVENUNK [place] Insurance:SELF PAY [facility] Number: Effective Repository Date:2018-08-14 08/13/2018 ENDER L Primary Insurance:MMO ENDER [place]oster [id number] MEDICAREPolicy LIVELYDOB: Community [address]LEYDA DRAPT Number: [id number] [id number] Repository [address]Uux: (330) Date:1572-84-80SA [phone] (HP) [address] [place] [address]TD: 08/13/2018 Secondary NOT GIVENUNK [place] Insurance:SELF PAY [facility] Number: Effective Repository Date:2018-08-13 08/04/2018 ENDER L Primary Insurance:MMO ENDER L [place] [id number] MEDICAREPolicy LIVELYDOB: Community ALEYDA DRAPT Number: [id number] [address] [id number] Repository [address]1031Bve: (330) Date:8009-48-78PJ [phone] (HP) [address] [address]MD: 08/04/2018 Secondary NOT GIVENUNK Braxton Insurance:SELF PAY [facility] Number: Effective Repository Date:2018-08-04 08/04/2018 ENDER L Primary Insurance:MMO ENDER L Braxton [id number] MEDICAREPolicy LIVELYDOB: Community ALEYDA DRAPT Number: [id number] [id number] Repository 426[address]Wok: (330) Date:0768-11-89JP [phone] (HP) [address] [place] [address]ZD: 08/04/2018 Secondary NOT GIVENUNK Leslie Insurance:SELF PAY [facility] Number: Effective Repository Date:2018-08-04 08/04/2018 ENDER L Primary Insurance:MMO ENDER L Braxton [id number] MEDICAREPolicy LIVELYDOB: Community ALEYDA DRAPT Number: [id number] [id number] Repository 62575Cdw: (330) Date:0240-41-45WS [phone] (HP) [address] [place] [address]QW: 08/04/2018 Secondary NOT GIVENUNK Braxton Insurance:SELF PAY [facility] Number: Effective Repository Date:2018-08-04 08/04/2018 ENDER L Primary Insurance:MMO ENDER L Leslie [id number] MEDICAREPolicy LIVELYDOB: Community ALEYDA DRAPT Number: [id number] [id number] Repository 40966Ufn: (330) Date:7640-52-67VO [phone] (HP) [address] [place] [address]CP: 08/04/2018 Secondary NOT GIVENUNK Braxton Insurance:SELF PAY [facility] Number: Effective Repository Date:2018-08-04 08/03/2018 ENDER L Primary Insurance:MMO ENDER L Braxton [id number] MEDICAREPolicy LIVELYDOB: Community ALEYDA DRAPT Number: [id number] [id number] Repository 40699Zuw: (330) Date:6263-82-04OG [phone] (HP) [address] [place] [address]OU: 08/03/2018 Secondary NOT GIVENUNK Leslie Insurance:SELF PAY [facility] Number: Effective Repository Date:2018-08-03 07/30/2018 ENDER L Primary Insurance:MMO ENDER L Leslie [id number] MEDICAREPolicy LIVELYDOB: Community ALEYDA DRAPT Number: [id number] [id number] Repository 505[address]Chw: (330) Date:7437-40-39EZ [phone] (HP) [address] [place] [address]BL: 07/30/2018 Secondary NOT GIVENUNK Braxton Insurance:SELF PAY [facility] Number: Effective Repository Date:2018-07-30 07/23/2018 ENDER L Primary Insurance:MMO ENDER L Leslie [id number] MEDICAREPolicy LIVELYDOB: Community ALEYDA DRAPT Number: [id number] [id number] Repository 91404Fjo: (330) Date:8702-21-70SL [phone] (HP) [address] [place] [address]RZ: 07/23/2018 Secondary NOT GIVENUNK Braxton Insurance:SELF PAY [facility] Number: Effective Repository Date:2018-07-23 07/22/2018 ENDER L Primary Insurance:MMO ENDER L Leslie [id number] MEDICAREPolicy LIVELYDOB: Community ALEYDA DRAPT Number: [id number] [id number] Repository 59[address]Phu: (330) Date:2353-85-28XJ [phone] () [address] [place], [place] [address]WP: 07/22/2018 Secondary NOT GIVENUNK Leslie Insurance:SELF PAY [facility] Number: Effective Repository Date:2018-07-14 07/15/2018 ENDER L Primary Insurance:MMO ENDER L Leslie [id number] MEDICAREPolicy LIVELYDOB: Community ALEYDA DRAPT Number: [id number] [id number] Repository 34472Wtg: (330) Date:5542-24-35UI [phone] () [address] [place], [place] [address]WP: 07/15/2018 Secondary NOT GIVENUNK Leslie Insurance:SELF PAY [facility] Number: Effective Repository Date:2018-07-14 06/23/2018 ENDER L Primary Insurance:MMO ENDER L Braxton [id number] MEDICAREPolicy LIVELYDOB: Community ALEYDA DRAPT Number: [id number] [id number] Repository 54999Kfe: (330) Date:9449-71-97TE [phone] () [address] [place] [address]NG: 06/23/2018 Secondary NOT GIVENUNK Leslie Insurance:SELF PAY [facility] Number: Effective Repository Date:2018-05-12 06/23/2018 ENDER L Primary Insurance:MMO ENDER L Leslie [id number] MEDICAREPolicy LIVELYDOB: Community ALEYDA DRAPT Number: [id number] [id number] Repository 27249Rcb: (330) Date:5428-08-86TV [phone] (HP) [address] [place] [address]YH: 06/23/2018 Secondary NOT GIVENUNK Leslie Insurance:SELF PAY [facility] Number: Effective Repository Date:2018-06-23 06/12/2018 ENDER L Primary Insurance:MMO ENDER L Leslie [id number] MEDICAREPolicy LIVELYDOB: Community ALEYDA DRAPT Number: [id number] [id number] Repository 01347Dbt: (330) Date:6434-17-83VH [phone] (HP) [address] [place] [phone]: 06/12/2018 Secondary NOT GIVENUNK Braxton Insurance:SELF PAY [facility] Number: Effective Repository Date:2018-06-12 06/11/2018 ENDER L Primary Insurance:MMO ENDER L Leslie [id number] MEDICAREPolicy LIVELYDOB: Community ALEYDA DRAPT Number: [id number] [id number] Repository 30934Hjx: (330) Date:2721-44-74BH [phone] (HP) [address] [place] [address]KS: 06/11/2018 Secondary NOT GIVENUNK Leslie Insurance:SELF PAY [facility] Number: Effective Repository Date:2018-06-11 05/28/2018 ENDER L Primary Insurance:MMO ENDER L Braxton [id number] MEDICAREPolicy LIVELYDOB: Community ALEYDA DRAPT Number: [id number] [id number] Repository 57500Axl: (330) Date:1027-89-68YN [phone] (HP) [address] [place] [address]TU: 05/28/2018 Secondary NOT GIVENUNK Braxton Insurance:SELF PAY [facility] Number: Effective Repository Date:2018-05-28 05/11/2018 ENDER L Primary Insurance:MMO ENDER Patel Leslie [id number] MEDICAREPolicy LIVELYDOB: Community ALEYDA DRAPT Number: [id number] [id number] Repository 96432Msz: (330) Date:8227-69-51SB [phone] (HP) [address] [address]TZ: 05/11/2018 Secondary NOT GIVENUNK Leslie Insurance:SELF PAY [facility] Number: Effective Repository Date:2018-05-11 05/05/2018 ENDER L Primary Insurance:MMO ENDER Patel Braxton [id number] MEDICAREPolicy LIVELYDOB: Community ALEYDA DRAPT Number: [id number] [id number] Repository 96969Rqf: (330) Date:0192-48-76GK [phone] (HP) [address] [phone]: 05/05/2018 Secondary NOT GIVENUNK Braxton Insurance:SELF PAY [facility] Number: Effective Repository Date:2018-05-05 05/04/2018 ENDER Patel Primary Insurance:MMO ENDER Patel Braxton [id number] MEDICAREPolicy LIVELYDOB: Community ALEYDA DRAPT Number: [id number] [id number] Repository 98372Xei: (330) Date:5210-44-12DZ [phone] (HP) [address] [place], [place] [phone]: 05/04/2018 Secondary NOT GIVENUNK Leslie Insurance:SELF PAY [facility] Number: Effective Repository Date:2018-05-04 04/30/2018 ENDER L Primary Insurance:MMO ENDER Patel Braxton [id number] MEDICAREPolicy LIVELYDOB: Community ALEYDA DRAPT Number: [id number] [id number] Repository 66841Vaw: (330) Date:9049-43-77MI [phone] (HP) [address] [place] [address]BZ: 04/30/2018 Secondary NOT GIVENUNK Leslie Insurance:SELF PAY [facility] Number: Effective Repository Date:2017-11-24 04/24/2018 ENDER L Primary Insurance:MMO ENDER L Leslie [id number] MEDICAREPolicy LIVELYDOB: Community ALEYDA DRAPT Number: [id number] [id number] Repository 08497Pcu: (330) Date:9428-09-98OR [phone] (HP) [address] [place] [address]MS: 04/24/2018 Secondary NOT GIVENUNK Braxton Insurance:SELF PAY [facility] Number: Effective Repository Date:2018-04-08 04/24/2018 ENDER L Primary Insurance:MMO ENDER L Braxton [id number] MEDICAREPolicy LIVELYDOB: Community ALEYDA DRAPT Number: [id number] [id number] Repository 22285Hhc: (330) Date:6731-78-42JZ [phone] () [address] [place] [address]LT: 04/24/2018 Secondary NOT GIVENUNK Braxton Insurance:SELF PAY [facility] Number: Effective Repository Date:2018-04-24 04/08/2018 ENDER L Primary Insurance:MMO ENDER L Braxton [id number] MEDICAREPolicy LIVELYDOB: Community ALEYDA DRAPT Number: [id number] [id number] Repository 07785Dov: (330) Date:0522-88-83EO [phone] (HP) [address] [place] [address]RN: 04/08/2018 Secondary NOT GIVENUNK Leslie Insurance:SELF PAY [facility] Number: Effective Repository Date:2018-04-08 04/08/2018 ENDER L Primary Insurance:MMO ENDER L Braxton [id number] MEDICAREPolicy LIVELYDOB: Community ALEYDA DRAPT Number: [id number] [id number] Repository 29403Ajk: (330) Date:9324-12-68JJ [phone] (HP) [address] [address]PZ: 04/08/2018 Secondary NOT GIVENUNK Leslie Insurance:SELF PAY [facility] Number: Effective Repository Date:2018-04-08 04/07/2018 ENDER L Primary Insurance:MMO ENDER Patel Leslie [id number] MEDICAREPolicy LIVELYDOB: Community ALEYDA DRAPT Number: [id number] [id number] Repository 90340Bqb: (330) Date:0152-70-66QD [phone] (HP) [address] [place] [address]FU: 04/07/2018 Secondary NOT GIVENUNK Leslie Insurance:SELF PAY [facility] Number: Effective Repository Date:2018-04-07 04/07/2018 ENDER L Primary Insurance:MMO ENDER Patel Braxton [id number] MEDICAREPolicy LIVELYDOB: Community ALEYDA DRAPT Number: [id number] [id number] Repository 70285Gnp: (330) Date:5617-17-63MX [phone] (HP) [address] [place] [address]SX: 04/07/2018 Secondary NOT GIVENUNK Leslie Insurance:SELF PAY [facility] Number: Effective Repository Date:2018-04-07 04/07/2018 ENDER L Primary Insurance:MMO ENDER Patel Leslie [id number] MEDICAREPolicy LIVELYDOB: Community ALEYDA DRAPT Number: [id number] [id number] Repository 77350Pph: (330) Date:1373-27-87ZA [phone] (HP) [address] [place] [address]LL: 04/07/2018 Secondary NOT GIVENUNK Leslie Insurance:SELF PAY [facility] Number: Effective Repository Date:2018-04-03 04/07/2018 ENDER L Primary Insurance:MMO ENDER L Leslie [id number] MEDICAREPolicy LIVELYDOB: Community ALEYDA DRAPT Number: [id number] [id number] Repository 17822Dqc: (330) Date:3033-15-13VA [phone] (HP) [address] [place] [address]ST: 04/07/2018 Secondary NOT GIVENUNK Leslie Insurance:SELF PAY [facility] Number: Effective Repository Date:2018-04-07 03/31/2018 ENDER L Primary Insurance:MMO ENDER L Leslie [id number] MEDICAREPolicy LIVELYDOB: Community ALEYDA DRAPT Number: [id number] [id number] Repository 19229Sga: (330) Date:0128-53-29HF [phone] (HP) [address] [place] [address]NE: 03/31/2018 Secondary NOT GIVENUNK Braxton Insurance:SELF PAY [facility] Number: Effective Repository Date:2018-03-31 03/31/2018 ENDER L Primary Insurance:MMO ENDER L Leslie [id number] MEDICAREPolicy LIVELYDOB: Community ALEYDA DRAPT Number: [id number] [id number] Repository 66496Xgl: (330) Date:1825-55-06VB [phone] (HP) [address] [place] [address]KS: 03/31/2018 Secondary NOT GIVENUNK Braxton Insurance:SELF PAY [facility] Number: Effective Repository Date:2018-03-31 03/31/2018 ENDER L Primary Insurance:MMO ENDER L Leslie [id number] MEDICAREPolicy LIVELYDOB: Community ALEYDA DRAPT Number: [id number] [id number] Repository 33055Amp: (330) Date:0622-13-30CJ [phone] (HP) [address] [place] [address]ZR: 03/31/2018 Secondary NOT GIVENUNK Braxton Insurance:SELF PAY [facility] Number: Effective Repository Date:2018-03-31 03/31/2018 ENDER L Primary Insurance:MMO ENDER L Leslie [id number] MEDICAREPolicy LIVELYDOB: Community ALEYDA DRAPT Number: [id number] [id number] Repository 94296Yee: (330) Date:4325-24-24ZG [phone] (HP) [address] [place] [address]IB: 03/31/2018 Secondary NOT GIVENUNK Leslie Insurance:SELF PAY [facility] Number: Effective Repository Date:2018-03-31 03/26/2018 ENDER L Primary Insurance:MMO ENDER L Braxton [id number] MEDICAREPolicy LIVELYDOB: Community ALEYDA DRAPT Number: [id number] [id number] Repository 00827Kao: (330) Date:3624-06-54AC [phone] (HP) [address] [place] [address]JP: 03/26/2018 Secondary NOT GIVENUNK Leslie Insurance:SELF PAY [facility] Number: Effective Repository Date:2018-03-26 02/11/2018 ENDER L Primary Insurance:MMO ENDER L Braxton [id number] MEDICAREPolicy LIVELYDOB: Community ALEYDA DRAPT Number: [id number] [id number] Repository 88898Gtz: Date:3123-88-23MD [phone] [address], [place] -4 (HP) [address]LP: 02/11/2018 Secondary NOT GIVENUNK Leslie Insurance:SELF PAY [facility] Number: Effective Repository Date:2018-01-13 02/05/2018 ENDER L Primary Insurance:MMO ENDER L Leslie [id number] MEDICAREPolicy LIVELYDOB: Community ALEYDA DRAPT Number: [id number] [id number] Repository 08594Dqf: Date:8024-50-56RL [phone] [place] [address] -4 (HP) [phone]: 02/05/2018 Secondary NOT GIVENUNK Braxton Insurance:SELF PAY [facility] Number: Effective Repository Date:2018-01-13 01/15/2018 ENDER L Primary Insurance:MMO ENDER L Braxton [id number] MEDICAREPolicy LIVELYDOB: Community ALEYDA DRAPT Number: [id number] [id number] Repository 48500Gwx: (330) Date:7368-27-36LF [phone] (HP) [address] [place] [address]DO: 01/15/2018 Secondary NOT GIVENUNK Leslie Insurance:SELF PAY [facility] Number: Effective Repository Date:2018-01-14 01/09/2018 ENDER L Primary Insurance:MMO ENDER L Leslie [id number] MEDICAREPolicy LIVELYDOB: Community ALEYDA DRAPT Number: [id number] [id number] Repository 12130Poh: (330) Date:5707-77-95EX [phone] (HP) [address] [place] [address]WV: 01/09/2018 Secondary NOT GIVENUNK Braxton Insurance:SELF PAY [facility] Number: Effective Repository Date:2018-01-09 01/01/2018 ENDER L Primary Insurance:MMO ENDER L Leslie [id number] MEDICAREPolicy LIVELYDOB: Community ALEYDA DRAPT Number: [id number] [id number] Repository 24165Hpn: (330) Date:7874-13-89AM [address] [phone] (HP) [address] [place] [address]CX: 01/01/2018 Secondary NOT GIVENUNK Braxton Insurance:SELF PAY [facility] Number: Effective Repository Date:2018-01-01 12/02/2017 ENDER L Primary Insurance:MMO ENDER L Braxton [id number] MEDICAREPolicy LIVELYDOB: Community ALEYDA DRAPT Number: [id number] [id number] Repository 46772Pgt: (330) Date:9417-06-84JE [phone] (HP) [address] [place] [address]YO: 12/02/2017 Secondary NOT GIVENUNK Braxton Insurance:SELF PAY [facility] Number: Effective Repository Date:2017-12-02 11/26/2017 ENDER L Primary Insurance:MMO ENDER L Leslie [id number] MEDICAREPolicy LIVELYDOB: Community ALYEDA DRAPT Number: [id number] [id number] Repository 54948Odh: (330) Date:3966-38-92YJ [phone] (HP) [address] [place] [address]FL: 11/26/2017 Secondary NOT GIVENUNK Leslie Insurance:SELF PAY [facility] Number: Effective Repository Date:2017-11-26 11/24/2017 ENDER L Primary Insurance:MMO ENDER L Leslie [id number] MEDICAREPolicy LIVELYDOB: Community ALEYDA DRAPT Number: [id number] [id number] Repository 61856Dys: (330) Date:5491-29-02QL [phone] (HP) [address] [place] [address]VU: 11/24/2017 Secondary NOT GIVENUNK Leslie Insurance:SELF PAY [facility] Number: Effective Repository Date:2017-09-04 11/24/2017 Ender Patel Primary Insurance:MMO Ender Limon [id number] [facility] LivelyD[facility]: Community Aleyda DrApt Number: [id number] [id number] Repository 87719Flq: Date:4362-37-71OC [phone] [place] [address] 2 () [phone]: 11/24/2017 Secondary NOT GIVENUNK Braxton Insurance:SELF PAY [facility] Number: Effective Repository Date:2017-11-24 11/21/2017 Ender Patel Primary Insurance:MMO Ender Limon [id number] MEDICAREPolicy LivelyDOB: [facility] Aleyda [address] Number: [id number] [id number] Repository 44847Jvd: Date:0407-67-82GB [phone] [place] [address] 2 (HP) [phone]: 11/21/2017 Secondary NOT GIVENUNK Braxton Insurance:SELF PAY [facility] Number: Effective Repository Date:2017-11-21
== END ==
PROVIDERS: Family Provider Family Medicine Geriatric Medicine; PCP Family Medicine Geriatric Medicine; Visit Provider Family Medicine Geriatric Medicine
DX: E53.8 Deficiency of other specified B group vitamins (principal); D64.9 Anemia, unspecified
CPT/HCPCS: 36415; 82607; 82728; 82747; 83540; 83550; 85014; 85027

== ENCOUNTER → 2018-09-18 09:14 | Outpatient (CLI) | payer MEDICARE, SELFPAY ==
[2018-08-05 10:51] VITALS: BMI 29.1
--- NOTE | 2018-09-18 10:43 | RAD_ITS ---
STUDY: X-RAY - ABDOMEN/PELVIS REASON FOR EXAM: Female, 82 years old. Abdominal pain TECHNIQUE: 2 views COMPARISON: None. FINDINGS: Clips in the right upper quadrant indicate previous cholecystectomy. There are no abnormal calcifications in the kidneys. There are degenerative changes involving the lower thoracic spine. There is no bowel distention or free intraperitoneal air. RAD/Abd Inc Decub and/or Erect IMPRESSION: No acute findings in the abdomen. Electronically Signed: Jovanny Palacios MD at 4:23 EST Tel , Service support ,
[2018-09-18 12:26] LABS: Absolute Lymphocyte Count 2.63 X10^3/ul (0.83-4.51); Absolute Neutrophil Count 9.4 X10^3/uL (2.0-7.7); Basophil# 0.03 X10^3/uL; Basophil% 0.2 % (0-1); Eosinophil# 0.04 X10^3/uL; Eosinophils% 0.3 % (0-5); Hematocrit 33.6 % (37-47); Hemoglobin 10.6 g/dl (12.0-15.0); Lymphocyte # 2.63 X10^3/ul (4.0); Lymphocyte % 19.8 % (19-41); Mean Corp Hgb Conc 31.5 g/gl (32-36); Mean Corpuscular Hgb 27.3 pg (27.0-32.0); Mean Corpuscular Volume 86.6 fL (81-99); Mean Platelet Vol. 10.9 fl (6.2-12.0); Monocyte# 1.08 X10^3/uL; Monocyte% 8.1 % (0-10); Neutrophil # 9.43 X10^3/uL (2.7-7.7); Platelet Count 403 K/mm3 (150-450); RBC Distribution Width CV 15.8 % (11.6-14.6); RBC Distribution Width SD 50.5 fl (35.1-43.9); Red Blood Count 3.88 M/mm3 (4.2-5.4); White Blood Count 13.3 K/mm3 (4.4-11.0)
[2018-09-18 12:36] LABS: Anion Gap 12 (5-15); BUN 27 mg/dL (7-18); BUN/Creat Ratio 24.5 RATIO (10-20); Calcium,Total 8.8 mg/dL (8.5-10.1); Chloride 102 mmol/L (98-107); EST Glomerular Filtration Rate 51 mL/min (>60); Est Glom Filt Rate - Afr Amer 61 mL/min (>60); Glucose 230 mg/dL (74-106); Potassium 3.5 mmol/L (3.5-5.1); Sodium Level 138 mmol/L (136-145)
[2018-09-18 12:48] LABS: Differential Indicated SCAN CRITERIA MET; POSITIVE COUNT NO; POSITIVE DIFFERENTIAL NO; POSITIVE MORPHOLOGY YES; Reactive Lymphocyte RARE
== END ==
PROVIDERS: Family Provider Family Medicine Geriatric Medicine; PCP Family Medicine Geriatric Medicine; Visit Provider Family Medicine Geriatric Medicine
DX: A48.1 Legionnaires' disease (principal); N18.3 Chronic kidney disease, stage 3 (moderate); N39.0 Urinary tract infection, site not specified; R10.9 Unspecified abdominal pain
CPT/HCPCS: 36415; 74019; 80048; 85025; 87077; 87086; 87088; 87186; 87506

== ENCOUNTER → 2018-10-08 14:53 | Outpatient (CLI) | payer MEDICARE, SELFPAY ==
[2018-10-08 17:23] LABS: Anion Gap 11 (5-15); BUN 22 mg/dL (7-18); BUN/Creat Ratio 18.6 RATIO (10-20); Calcium,Total 9.4 mg/dL (8.5-10.1); Chloride 97 mmol/L (98-107); Creatinine, Serum 1.18 mg/dL (0.55-1.02); EST Glomerular Filtration Rate 47 mL/min (>60); Est Glom Filt Rate - Afr Amer 57 mL/min (>60); Glucose 222 mg/dL (74-106); Potassium 3.6 mmol/L (3.5-5.1); Sodium Level 136 mmol/L (136-145); Uric Acid 4.9 mg/dL (2.6-6.0)
[2018-10-08 17:29] LABS: Absolute Lymphocyte Count 4.38 X10^3/ul (0.83-4.51); Absolute Neutrophil Count 10.4 X10^3/uL (2.0-7.7); Basophil# 0.09 X10^3/uL; Basophil% 0.5 % (0-1); Eosinophil# 0.12 X10^3/uL; Eosinophils% 0.7 % (0-5); Hematocrit 33.3 % (37-47); Hemoglobin 10.4 g/dl (12.0-15.0); Lymphocyte # 4.38 X10^3/ul (4.0); Lymphocyte % 26.3 % (19-41); Mean Corp Hgb Conc 31.2 g/gl (32-36); Mean Corpuscular Hgb 27.4 pg (27.0-32.0); Mean Corpuscular Volume 87.6 fL (81-99); Mean Platelet Vol. 10.4 fl (6.2-12.0); Monocyte# 1.46 X10^3/uL; Monocyte% 8.8 % (0-10); Neutrophil # 10.44 X10^3/uL (2.7-7.7); Neutrophil % 62.7 % (47-70); Platelet Count 578 K/mm3 (150-450); RBC Distribution Width CV 14.8 % (11.6-14.6); RBC Distribution Width SD 47.3 fl (35.1-43.9); White Blood Count 16.7 K/mm3 (4.4-11.0)
[2018-10-08 17:32] LABS: POSITIVE COUNT NO; POSITIVE DIFFERENTIAL NO; POSITIVE MORPHOLOGY NO
[2018-10-08 17:46] LABS: Erythrocyte Sedimentation Rate 44 mm/hr (0-30)
== END ==
PROVIDERS: Family Provider Family Medicine Geriatric Medicine; PCP Family Medicine Geriatric Medicine; Visit Provider Family Medicine Geriatric Medicine
DX: N18.3 Chronic kidney disease, stage 3 (moderate) (principal); M10.9 Gout, unspecified
CPT/HCPCS: 36415; 80048; 84550; 85025; 85652; 86140

== ENCOUNTER → 2018-10-29 13:59 | Outpatient (CLI) | payer MEDICARE, SELFPAY ==
[2018-10-29 13:17] VITALS: BMI 27.3
[2018-10-29 17:17] LABS: Absolute Lymphocyte Count 2.77 X10^3/ul (0.83-4.51); Absolute Neutrophil Count 7.9 X10^3/uL (2.0-7.7); Basophil# 0.06 X10^3/uL; Basophil% 0.5 % (0-1); Eosinophils% 0.8 % (0-5); Hematocrit 33.1 % (37-47); Hemoglobin 10.5 g/dl (12.0-15.0); Immature Platelet Fraction 3.6 % (1.0-7.9); Lymphocyte # 2.77 X10^3/ul (4.0); Lymphocyte % 23.3 % (19-41); Mean Corp Hgb Conc 31.7 g/gl (32-36); Mean Corpuscular Hgb 27.4 pg (27.0-32.0); Mean Corpuscular Volume 86.4 fL (81-99); Mean Platelet Vol. 10.9 fl (6.2-12.0); Monocyte# 0.94 X10^3/uL; Monocyte% 7.9 % (0-10); Neutrophil # 7.92 X10^3/uL (2.7-7.7); Neutrophil % 66.7 % (47-70); POSITIVE COUNT NO; POSITIVE DIFFERENTIAL NO; POSITIVE MORPHOLOGY NO; Platelet Count 363 K/mm3 (150-450); RBC Distribution Width CV 14.7 % (11.6-14.6); RBC Distribution Width SD 46.4 fl (35.1-43.9); RET-HE 31.2 pg (30-35); Red Blood Count 3.83 M/mm3 (4.2-5.4); Reticulocyte Count 1.39 % (0.5-1.5); White Blood Count 11.9 K/mm3 (4.4-11.0)
[2018-10-29 17:27] LABS: Vitamin B12 446 pg/mL (211-911)
[2018-10-29 18:01] LABS: Ferritin 57 ng/mL (8-252); Iron 38 ug/dL (50-170); Iron Binding Capacity,Total 290 ug/dL (250-450)
== END ==
PROVIDERS: Family Provider Family Medicine Geriatric Medicine; PCP Family Medicine Geriatric Medicine; Visit Provider Family Medicine Geriatric Medicine
DX: D64.9 Anemia, unspecified (principal)
CPT/HCPCS: 36415; 82607; 82728; 82746; 83540; 83550; 85025; 85045

== ENCOUNTER → 2018-11-11 14:56 | Outpatient (CLI) | payer MEDICARE, SELFPAY ==
[2018-10-29 13:17] VITALS: BMI 27.3
[2018-11-11 16:45] LABS: Vitamin D,25 Hydroxy 31.3 ng/mL (29.95-100.01)
[2018-11-11 16:50] LABS: Absolute Lymphocyte Count 3.14 X10^3/ul (0.83-4.51); Absolute Neutrophil Count 7.5 X10^3/uL (2.0-7.7); Basophil# 0.04 X10^3/uL; Basophil% 0.3 % (0-1); Eosinophil# 0.18 X10^3/uL; Eosinophils% 1.5 % (0-5); Hematocrit 34.6 % (37-47); Hemoglobin 10.9 g/dl (12.0-15.0); Lymphocyte # 3.14 X10^3/ul (4.0); Lymphocyte % 25.9 % (19-41); Mean Corp Hgb Conc 31.5 g/gl (32-36); Mean Corpuscular Volume 85.6 fL (81-99); Mean Platelet Vol. 10.5 fl (6.2-12.0); Monocyte# 1.17 X10^3/uL; Monocyte% 9.7 % (0-10); Neutrophil # 7.49 X10^3/uL (2.7-7.7); Neutrophil % 61.8 % (47-70); POSITIVE COUNT NO; POSITIVE DIFFERENTIAL NO; POSITIVE MORPHOLOGY NO; Platelet Count 465 K/mm3 (150-450); RBC Distribution Width CV 14.5 % (11.6-14.6); RBC Distribution Width SD 45.3 fl (35.1-43.9); Red Blood Count 4.04 M/mm3 (4.2-5.4); White Blood Count 12.1 K/mm3 (4.4-11.0)
[2018-11-11 16:54] LABS: ALB/GLOB Ratio 0.7 RATIO (0.9-2.4); AST(SGOT) 10 U/L (15-37); Alanine Aminotransfer ALT/SGPT 19 U/L (13-56); Alkaline Phosphatase 69 U/L (45-117); Anion Gap 12 (5-15); BUN 19 mg/dL (7-18); BUN/Creat Ratio 17.9 RATIO (10-20); Calcium,Total 9.2 mg/dL (8.5-10.1); Chloride 99 mmol/L (98-107); Creatinine, Serum 1.06 mg/dL (0.55-1.02); EST Glomerular Filtration Rate 53 mL/min (>60); Est Glom Filt Rate - Afr Amer 64 mL/min (>60); Globulin 4.3 g/dL (2.2-4.2); Glucose 140 mg/dL (74-106); Potassium 3.1 mmol/L (3.5-5.1); Protein, Total 7.3 g/dL (6.4-8.2); Sodium Level 138 mmol/L (136-145); Thyroid Stim Hormone (TSH) 3.48 uIU/mL (0.358-3.74); Uric Acid 5.3 mg/dL (2.6-6.0)
== END ==
PROVIDERS: Family Provider Family Medicine Geriatric Medicine; PCP Family Medicine Geriatric Medicine; Visit Provider Family Medicine Geriatric Medicine
DX: E11.9 Type 2 diabetes mellitus without complications (principal); E55.9 Vitamin D deficiency, unspecified; I10 Essential (primary) hypertension; M10.9 Gout, unspecified
CPT/HCPCS: 36415; 80053; 82306; 84443; 84550; 85025

== ENCOUNTER 2018-11-13 03:15 | Observation (INO) | payer MEDICARE, SELFPAY ==
[2018-10-29 13:17] VITALS: BMI 27.3
[2018-11-13] VITALS (15 sets, daily range): BP systolic 110–180; BP diastolic 50–109; PULSE 71–109; RESP 16–24; TEMP 36.5–37; O2SAT 93–97; BMI 29.9; BMI 27.6; BMI 27.7
--- NOTE | 2018-11-13 03:37 | ED.DCSUM_ITS ---
- ER Visit Summary Date of Service: 11/13/18 Chief Complaint: Right leg pain History of Present Illness: The patient is a 83 F with history of chronic pain after lizzie legionnaires last year. She was admitted for intractable pain in July and had nerve blocks to the right L4-5 and L5-S1. Patient states last evening she developed some mild low back pain. When she tried to move the sofa of the bed tonight she had severe burning pain down her right posterior medial leg that became unbearable. Patient called EMS. Patient denies any recent fall or injury. She is scheduled to see a metal off bearer tomorrow. Physical Examination: Vital signs significant for blood pressure of 180/93, temperature 98.3, heart rate 107, respiratory rate 24, pulse ox 96% on room air. Patient is lying in bed. She appears uncomfortable but in no distress. Head neck examination normal. Heart is regular rate and rhythm. Lungs sounds are clear. Abdomen is soft and nontender. Active bowel sounds noted throughout. Back examination reveals reproducible tenderness over the right sciatic notch. Right lower extremity examination was mild muscular tenderness in the posterior right thigh and calf. There is no erythema or sign of infection. She has full range of motion and good distal pulse. Test Results: CBC was normal white count with hemoglobin 10.4. Chemistry studies significant only for potassium of 3.4. Sed rate is 77. CRP is 14.4. Emergency Department Course and Treatment: Patient was given fentanyl, Zofran, and Solu-Medrol. She did have improvement in pain, but did require a dose of morphine. At this time patient feels significantly better and feels like she can go home. When we sat her to the side of the bed to test walker, she is unable to bear weight on that right leg secondary to pain shooting from her calf up towards the hip along the sciatic nerve distribution. At this time she is placed back in bed. She will require hospital admission for further pain control, physical therapy, possible nerve block similar to prior admission. Treatment Plan: [] Disposition: Admit Impression: Sciatica This note was generated with [employer] dictation software. It may contain incorrect words, spelling, and punctuation that were not noted in review of the chart prior to signing ED Disposition - Plan for ED Patient: Referrals: Brian Degroot Chi, MD [Primary Care Provider] -
[2018-11-13] MEDS: Ondansetron 4 MG/2 ML Vial IV (03:40)
[2018-11-13] MEDS: 0.9% Normal Saline 1,000 ML 15 ML IV (03:40)
[2018-11-13 03:42] LABS: Absolute Lymphocyte Count 2.01 X10^3/ul (0.83-4.51); Absolute Neutrophil Count 6.7 X10^3/uL (2.0-7.7); Basophil# 0.06 X10^3/uL; Basophil% 0.6 % (0-1); Eosinophil# 0.16 X10^3/uL; Eosinophils% 1.6 % (0-5); Hematocrit 32.1 % (37-47); Hemoglobin 10.4 g/dl (12.0-15.0); Lymphocyte # 2.01 X10^3/ul (4.0); Lymphocyte % 20.3 % (19-41); Mean Corp Hgb Conc 32.4 g/gl (32-36); Mean Corpuscular Hgb 27.6 pg (27.0-32.0); Mean Corpuscular Volume 85.1 fL (81-99); Monocyte# 0.86 X10^3/uL; Monocyte% 8.7 % (0-10); Neutrophil # 6.71 X10^3/uL (2.7-7.7); Platelet Count 420 K/mm3 (150-450); RBC Distribution Width CV 14.1 % (11.6-14.6); Red Blood Count 3.77 M/mm3 (4.2-5.4); White Blood Count 9.9 K/mm3 (4.4-11.0)
[2018-11-13] MEDS: fentaNYL 100 MCG/2 ML Ampul 25 MCG IV (03:43)
[2018-11-13] MEDS: MethylPREDNISolone 125 MG/2 ML Vial 80 MG IV (03:45)
[2018-11-13 03:46] LABS: POSITIVE COUNT NO; POSITIVE DIFFERENTIAL NO; POSITIVE MORPHOLOGY NO
[2018-11-13 03:56] LABS: Anion Gap 12 (5-15); BUN 16 mg/dL (7-18); BUN/Creat Ratio 18.7 RATIO (10-20); Calcium,Total 9.4 mg/dL (8.5-10.1); Chloride 105 mmol/L (98-107); Creatinine, Serum 0.85 mg/dL (0.55-1.02); EST Glomerular Filtration Rate 68 mL/min (>60); Est Glom Filt Rate - Afr Amer 82 mL/min (>60); Estimated Creatinine Clearance 44.82 ml/min; Glucose 120 mg/dL (74-106); Potassium 3.4 mmol/L (3.5-5.1); Sodium Level 141 mmol/L (136-145)
[2018-11-13 04:00] LABS: Erythrocyte Sedimentation Rate 77 mm/hr (0-30)
[2018-11-13] MEDS: Morphine 4 MG/ML Syringe IV (04:57)
--- NOTE | 2018-11-13 06:04 | PCM.HP.STD ---
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 (4) Obesity (BMI 30.0-34.9) Status: Chronic (5) History of coronary artery stent placement Status: Chronic Comment: AAW-MRB-Zgbg-Mid OM1 w/ 2.25 x 12 mm Promus Premier 12/30/2013 JKW-PES-WHL-Prox-Mid OM2 w/ 3.0 x 23 mm Promus Stent 03/05/2010 CTH-OJK-PGU-OM2 w/ Taxus Stent 04/2006 (6) H/O coronary artery bypass surgery Status: Chronic Comment: CABG x 3 SVG to D1, SVG-OM & SVG-RCA (7) HLD (hyperlipidemia) Status: Chronic Qualifiers: Hyperlipidemia type: pure hypercholesterolemia Qualified Code(s): E78.00 - Pure hypercholesterolemia, unspecified; E78.0 - Pure hypercholesterolemia (8) TIA (transient ischemic attack) Status: Chronic Qualifiers: Transient cerebral ischemia type: unspecified Qualified Code(s): G45.9 - Transient cerebral ischemic attack, unspecified (9) Hypertension Status: Chronic Qualifiers: Hypertension type: essential hypertension Qualified Code(s): I10 - Essential (primary) hypertension History of Present Illness Date of Admission: 11/13/18 Chief Complaint: Intractable back pain w/ radiculopathy The patient is a 83 y/o F w/ PMHx: Obesity, Diabetes mellitus type II, Hx TIA, HTN, HLD, Hypothyroidism, CAD s/p CABG x 3 and PCI x 3, History of Legionella PNA, Suspected PMR following w/ Rheumatology who presents to the [facility] ED on 11/13/18 with history of intractable lumbar back pain starting the evening prior, had onset upon awakening ongoing lumbar back pain in addition to shooting pain down her RLE. Patient had similar presentation with similarly elevated ESR and CRP with rheumatological evaluation at that time treated with steroids and pain block per pain management successfully. In the ED following interventions she noted improvement however upon attempted weight to lower extremity she had still onset discomfort and debility. Patient states that she completed her steroid regimen approximately 1 month prior and has been off steroids since. Work-up in the ED included T 98.3, heart rate initially 109--> 98, BP initially 180/93--> 149/87, respiratory rate 20, 94% room air, CBC with WBC 9.9, hemoglobin 10.4, platelet 420 without shift, ESR 77, CRP 14.4, BMP with potassium 3.4, glucose 120. In the ED patient administered Zofran, morphine, Solu-Medrol, fentanyl, normal saline. 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) JXL-VFK-Yufn-Mid OM1 w/ 2.25 x 12 mm Promus Premier 12/30/2013 XMG-IAE-HUJ-Prox-Mid OM2 w/ 3.0 x 23 mm Promus Stent 03/05/2010 OXS-BSG-TGB-OM2 w/ Taxus Stent 04/2006 CABG x 3 SVG to D1, SVG-OM & SVG-RCA History of coronary artery stent placement (Chronic 12/30/13) ESC-RHG-Ozxr-Mid OM1 w/ 2.25 x 12 mm Promus Premier 12/30/2013 NQQ-RLJ-AQT-Prox-Mid OM2 w/ 3.0 x 23 mm Promus Stent 03/05/2010 MFO-IOQ-QGB-OM2 w/ Taxus Stent 04/2006 H/O coronary artery bypass surgery (Chronic 09/08/92) CABG x 3 SVG to D1, SVG-OM & SVG-RCA HLD (hyperlipidemia) (Chronic) TIA (transient ischemic attack) (Chronic) Carotid bruit (Chronic) Hypertension (Chronic) Medical History: Medical History (Last Reviewed 10/29/18 @ 13:36 by Robert Bonilla MD) GI bleed (Chronic) K92.2 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 myocardial infarction (Chronic) I25.2 Atherosclerosis of coronary 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 (Chronic) I25.810 NLV-HRW-Ynpz-Mid OM1 w/ 2.25 x 12 mm Promus Premier 12/30/2013 FPV-PTB-TJE-Prox-Mid OM2 w/ 3.0 x 23 mm Promus Stent 03/05/2010 IIB-ZSU-FNN-OM2 w/ Taxus Stent 04/2006 CABG x 3 SVG to D1, SVG-OM & SVG-RCA SVT (supraventricular tachycardia) (Acute) I47.1 Sepsis (Acute) A41.9 HLD (hyperlipidemia) (Chronic) E78.5 TIA (transient ischemic attack) (Chronic) G45.9 Carotid bruit (Chronic) R09.89 Hypertension (Chronic) I10 Acute esophagitis K20.9 Blood in stool K92.1 Type 2 diabetes mellitus without complications E11.9 Pneumonia J18.9 Abnormal finding on cardiovascular stress test (Inactive) R94.39 Allergies No Known Allergies Allergy (Verified 11/13/18 03:25) Home Medications: Ambulatory Orders Medication Instructions Recorded Levothyroxine [Synthroid] 137 mcg PO DAILY 10/13/13 Potassium Chloride [Klor-Con 10] 20 meq PO BID 10/13/13 Nitroglycerin [Nitrostat] 0.4 mg SUBLINGUAL Q5M PRN 12/21/13 ergocalciferol (vitamin D2) 50,000 50,000 unit PO QMONTH 11/18/17 unit capsule atorvastatin 20 mg tablet 40 mg PO QHS tab 11/24/17 Glipizide/Metformin HCl 2 ea PO BID 03/31/18 [Glipizide-Metformin 2.5-500 mg] insulin glargine (U-300) conc. 300 27 unit SC QDAY ml 04/08/18 unit/mL (3 mL) subcutaneous pen Metoprolol(XL)Succ [Toprol Xl 50 mg PO DAILY 04/22/18 (Beta Antwon)] Aspirin [Aspirin, Baby] 81 mg PO DAILY@0800 07/30/18 isosorbide mononitrate ER 30 mg 30 mg PO QAM #90 tab 11/03/18 tablet,extended release 24 hr Furosemide 40 mg PO DAILY 11/13/18 Hydrocodone/Acetaminophen 0.5 tab PO BID PRN 11/13/18 [Hydrocodone-Acetamin 5-325 mg] Surgical History: Surgical History (Last Reviewed 10/29/18 @ 13:36 by Robert Bonilla MD) History of coronary artery stent placement (Chronic) Onset Date: 12/30/13 Z95.5 TPI-MTR-Smrn-Mid OM1 w/ 2.25 x 12 mm Promus Premier 12/30/2013 KGR-TSL-PJM-Prox-Mid OM2 w/ 3.0 x 23 mm Promus Stent 03/05/2010 UZW-SBT-DEO-OM2 w/ Taxus Stent 04/2006 H/O coronary artery bypass surgery (Chronic) Onset Date: 09/08/92 Z95.1 CABG x 3 SVG to D1, SVG-OM & SVG-RCA History bilateral cataract surgery History of esophagogastroduodenoscopy (EGD) Onset Date: ~04/24/18 Z98.890 History of esophagogastroduodenoscopy (EGD) Onset Date: ~06/23/18 Z98.890 History of hemorrhoidectomy Z98.890 History of laparoscopic cholecystectomy Z90.49 S/P colonoscopy Onset Date: ~04/24/18 Z98.890 Surgical History: appendectomy, cholecystectomy, coronary bypass surgery, hysterectomy, - - Appendectomy, cholecystectomy, CABG x 3, PCI x 3, hysterectomy. 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 Review of Systems Constitutional: Reports: Malaise, Weakness, Fatigue. Denies: Chills, Fever, Weight Change HEENT: Denies: Head Aches, Sinus Congestion, Sinus Drainage Cardiovascular: Denies: Chest Pain, Palpitations Respiratory: Denies: Cough, Shortness of breath at rest, Sputum production Gastrointestinal: Denies: Abdominal Pain, Nausea, Vomiting Genitourinary: Denies: Dysuria Musculoskeletal: Reports: Back Pain, Leg Pain. Denies: Joint Pain, Joint Tenderness Skin: Denies: Rash, Wounds Neurological: Denies: Numbness, Tingling, Focal weakness Psychiatric: Denies: Anxiety, Depression, Homicidal Ideations, Suicidal Ideations Hematologic/ Lymphatic: Denies: Easy Bruising, Easy Bleeding VTE Information - Inpt Only VTE Present on Admission: No VTE Mechan Device Prophylaxis: SCD's VTE Pharm Prophylaxis ordered?: No Reason prophylaxis not ordered:: Medical Contraindication - Holding for injection. Patient Problems: Active and Suspected Problems (Last Reviewed 10/29/18 @ 13:36 by Robert Bonilla MD) Intractable back pain (Acute) Radiculopathy (Acute) Subjective: Laying in the ED bed, notes improved from initial presentation, still discomfort to RLE, lumbar w/ attempting weight. Objective: Physical Examination: General: awake, alert, oriented x 3 and cooperative, laying in the ED bed in no apparent distress but notes discomfort w/ certain activities. Skin: normal color, turgor, no icterus, cyanosis. HEENT: AT/NC, EOMI, PERRLA, MMM, no carotid bruits or JVD noted. Lungs: CTA bilaterally, moderate effort, mild decrease BL bases, no rales, ronchi or wheezing. Heart: Regular rate and rhythm; no gallop, rub audible. Abdomen: soft, NTTP, ND, normal BS, no HSM. Extremities: no cyanosis, clubbing, BL LE pedal->maynard 2+ pitting edema, chronic. Neurological: patient awake, alert, oriented x 3; cognitive function intact; pupils equally reactive to light and accomodation; cranial nerves II-XII grossly normal, moving all 4 extremities however limited movement given RLE radiculopathy and lumbar pain, strength accordingly severely globally decreased. Psychiatric: affect appears normal, no acute evidence of depressive or anxiety feelings. - Physical Exam Vital Signs Temp Pulse Resp BP Pulse Ox 98.3 F 98 20 H 149/87 H 94 11/13/18 03:19 11/13/18 05:54 11/13/18 05:54 11/13/18 05:54 11/13/18 05:54 Oxygen Delivery Method Room Air Weight: 174 lb 13.225 oz Body Mass Index (BMI) 29.9 Laboratory Tests Past 24 Hrs 11/13/18 11/13/18 03:35 03:35 WBC 9.9 RBC 3.77 L Hgb 10.4 L Hct 32.1 L MCV 85.1 MCH 27.6 MCHC 32.4 RDW 14.1 RDW Differential 43.0 Plt Count 420 MPV 10.0 Immature Gran % (Auto) 0.800 Neut % (Auto) 68.0 Lymph % (Auto) 20.3 Beadle % (Auto) 8.7 Eos % (Auto) 1.6 Baso % (Auto) 0.6 Absolute Neuts (auto) 6.7 Absolute Lymphs (auto) 2.01 Total Counted Not Reportable ESR 77 H Sodium 141 Potassium 3.4 L Chloride 105 Carbon Dioxide 24.0 Anion Gap 12 BUN 16 Creatinine 0.85 Estim Creat Clear Calc 44.82 Est GFR (MDRD) Af Amer 82 Est GFR (MDRD) Non-Af 68 BUN/Creatinine Ratio 18.7 Glucose 120 H Calcium 9.4 C-React Prot Ext Range 14.40 H Assessment/Plan All Active Problems (Last Reviewed 10/29/18 @ 13:36 by Robert Bonilla MD) Intractable back pain (Acute) Radiculopathy (Acute) Lightheaded (Acute) Constipation (Acute) Legionella pneumonia (Acute) SVT (supraventricular tachycardia) (Acute) Sepsis (Acute) Pneumonia (Resolved) The patient is a 83 y/o F w/ PMHx: Obesity, Diabetes mellitus type II, Hx TIA, HTN, HLD, Hypothyroidism, CAD s/p CABG x 3 and PCI x 3, History of Legionella PNA, Suspected PMR following w/ Rheumatology who presents to the [facility] ED on 11/13/18 with history of intractable lumbar back pain starting the evening prior, had onset upon awakening ongoing lumbar back pain in addition to shooting pain down her RLE. (1) Intractable Lumbar Back Pain w/ Radiculopathy and Suspected Polymyalgia rheumatica Flare: Work-up in the ED included T 98.3, heart rate initially 109--> 98, BP initially 180/93--> 149/87, respiratory rate 20, 94% room air, CBC with WBC 9.9, hemoglobin 10.4, platelet 420 without shift, ESR 77, CRP 14.4, BMP with potassium 3.4, glucose 120. Will admit to [facility], maintain on fall precautions, frequent positioning, po/IV pain regimen, will restart steroid regimen 40 mg daily given completion but if recurrent flare on taper would then plan to restart back at last effective dose, anti-emetics, bowel regimen. Will consult PT and OT for evaluation. Consulted Dr. Mccartney who is familiar with patient for consideration of block who is not available on 11/13/18 but noted he would notify his partner Dr. Zhou who will evaluate the patient. (2) CAD: s/p CABG x 3 and PCI x 3, continue home asa, statin, metoprolol. (3) Hypertension: Continue home regimen including Lasix, isosorbide, metoprolol, PRN hydralazine. (4) Hyperlipidemia: Continue home statin regimen. (5) Hypothyroidism: Continue home synthroid regimen. (6) Diabetes mellitus type II: Will hold home oral regimen, will continue home insulin regimen, ADA diet, accu checks w/ ISS. (7) Hypokalemia: Admission K+ 3.4, supplementation given, repeat level in AM. (8) DVT Prophylaxis: SCDs, defer chemoprophylaxis pending Dr. Mccartney evaluation for consideration block. Code Visit OBSV E&M: [id number] Initial observation care L3
--- NOTE | 2018-11-13 06:10 | HP.PCM_ITS ---
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 (4) Obesity (BMI 30.0-34.9) Status: Chronic (5) History of coronary artery stent placement Status: Chronic Comment: XKD-RBG-Cxrb-Mid OM1 w/ 2.25 x 12 mm Promus Premier 12/30/2013 HFJ-AGG-ZZS-Prox-Mid OM2 w/ 3.0 x 23 mm Promus Stent 03/05/2010 CNF-RZT-SNI-OM2 w/ Taxus Stent 04/2006 (6) H/O coronary artery bypass surgery Status: Chronic Comment: CABG x 3 SVG to D1, SVG-OM & SVG-RCA (7) HLD (hyperlipidemia) Status: Chronic Qualifiers: Hyperlipidemia type: pure hypercholesterolemia Qualified Code(s): E78.00 - Pure hypercholesterolemia, unspecified; E78.0 - Pure hypercholesterolemia (8) TIA (transient ischemic attack) Status: Chronic Qualifiers: Transient cerebral ischemia type: unspecified Qualified Code(s): G45.9 - Transient cerebral ischemic attack, unspecified (9) Hypertension Status: Chronic Qualifiers: Hypertension type: essential hypertension Qualified Code(s): I10 - Essential (primary) hypertension History of Present Illness Date of Admission: 11/13/18 Chief Complaint: Intractable back pain w/ radiculopathy The patient is a 83 y/o F w/ PMHx: Obesity, Diabetes mellitus type II, Hx TIA, HTN, HLD, Hypothyroidism, CAD s/p CABG x 3 and PCI x 3, History of Legionella PNA, Suspected PMR following w/ Rheumatology who presents to the [facility] ED on 11/13/18 with history of intractable lumbar back pain starting the evening prior, had onset upon awakening ongoing lumbar back pain in addition to shooting pain down her RLE. Patient had similar presentation with similarly elevated ESR and CRP with rheumatological evaluation at that time treated with steroids and pain block per pain management successfully. In the ED following interventions she noted improvement however upon attempted weight to lower extremity she had still onset discomfort and debility. Patient states that she completed her steroid regimen approximately 1 month prior and has been off steroids since. Work-up in the ED included T 98.3, heart rate initially 109--> 98, BP initially 180/93--> 149/87, respiratory rate 20, 94% room air, CBC with WBC 9.9, hemoglobin 10.4, platelet 420 without shift, ESR 77, CRP 14.4, BMP with potassium 3.4, glucose 120. In the ED patient administered Zofran, morphine, Solu-Medrol, fentanyl, normal saline. 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) OSG-WZR-Bqfg-Mid OM1 w/ 2.25 x 12 mm Promus Premier 12/30/2013 OOA-QUF-TTH-Prox-Mid OM2 w/ 3.0 x 23 mm Promus Stent 03/05/2010 BPU-CSD-KVB-OM2 w/ Taxus Stent 04/2006 CABG x 3 SVG to D1, SVG-OM & SVG-RCA History of coronary artery stent placement (Chronic 12/30/13) ZUQ-IRS-Xqfi-Mid OM1 w/ 2.25 x 12 mm Promus Premier 12/30/2013 TSD-BSH-YEW-Prox-Mid OM2 w/ 3.0 x 23 mm Promus Stent 03/05/2010 UFS-HQK-OWI-OM2 w/ Taxus Stent 04/2006 H/O coronary artery bypass surgery (Chronic 09/08/92) CABG x 3 SVG to D1, SVG-OM & SVG-RCA HLD (hyperlipidemia) (Chronic) TIA (transient ischemic attack) (Chronic) Carotid bruit (Chronic) Hypertension (Chronic) Medical History: Medical History (Last Reviewed 10/29/18 @ 13:36 by Robert Bonilla MD) GI bleed (Chronic) K92.2 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 myocardial infarction (Chronic) I25.2 Atherosclerosis of coronary 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 (Chronic) I25.810 YOR-ONA-Ctym-Mid OM1 w/ 2.25 x 12 mm Promus Premier 12/30/2013 LAM-IZA-EKN-Prox-Mid OM2 w/ 3.0 x 23 mm Promus Stent 03/05/2010 LGP-SDK-IME-OM2 w/ Taxus Stent 04/2006 CABG x 3 SVG to D1, SVG-OM & SVG-RCA SVT (supraventricular tachycardia) (Acute) I47.1 Sepsis (Acute) A41.9 HLD (hyperlipidemia) (Chronic) E78.5 TIA (transient ischemic attack) (Chronic) G45.9 Carotid bruit (Chronic) R09.89 Hypertension (Chronic) I10 Acute esophagitis K20.9 Blood in stool K92.1 Type 2 diabetes mellitus without complications E11.9 Pneumonia J18.9 Abnormal finding on cardiovascular stress test (Inactive) R94.39 Allergies No Known Allergies Allergy (Verified 11/13/18 03:25) Home Medications: Ambulatory Orders Medication Instructions Recorded Levothyroxine [Synthroid] 137 mcg PO DAILY 10/13/13 Potassium Chloride [Klor-Con 10] 20 meq PO BID 10/13/13 Nitroglycerin [Nitrostat] 0.4 mg SUBLINGUAL Q5M PRN 12/21/13 ergocalciferol (vitamin D2) 50,000 50,000 unit PO QMONTH 11/18/17 unit capsule atorvastatin 20 mg tablet 40 mg PO QHS tab 11/24/17 Glipizide/Metformin HCl 2 ea PO BID 03/31/18 [Glipizide-Metformin 2.5-500 mg] insulin glargine (U-300) conc. 300 27 unit SC QDAY ml 04/08/18 unit/mL (3 mL) subcutaneous pen Metoprolol(XL)Succ [Toprol Xl 50 mg PO DAILY 04/22/18 (Beta Antwon)] Aspirin [Aspirin, Baby] 81 mg PO DAILY@0800 07/30/18 isosorbide mononitrate ER 30 mg 30 mg PO QAM #90 tab 11/03/18 tablet,extended release 24 hr Furosemide 40 mg PO DAILY 11/13/18 Hydrocodone/Acetaminophen 0.5 tab PO BID PRN 11/13/18 [Hydrocodone-Acetamin 5-325 mg] Surgical History: Surgical History (Last Reviewed 10/29/18 @ 13:36 by Robert Bonilla MD) History of coronary artery stent placement (Chronic) Onset Date: 12/30/13 Z95.5 KAK-VXK-Bkuk-Mid OM1 w/ 2.25 x 12 mm Promus Premier 12/30/2013 RNS-BHO-YOR-Prox-Mid OM2 w/ 3.0 x 23 mm Promus Stent 03/05/2010 FZH-EYG-DTW-OM2 w/ Taxus Stent 04/2006 H/O coronary artery bypass surgery (Chronic) Onset Date: 09/08/92 Z95.1 CABG x 3 SVG to D1, SVG-OM & SVG-RCA History bilateral cataract surgery History of esophagogastroduodenoscopy (EGD) Onset Date: ~04/24/18 Z98.890 History of esophagogastroduodenoscopy (EGD) Onset Date: ~06/23/18 Z98.890 History of hemorrhoidectomy Z98.890 History of laparoscopic cholecystectomy Z90.49 S/P colonoscopy Onset Date: ~04/24/18 Z98.890 Surgical History: appendectomy, cholecystectomy, coronary bypass surgery, hysterectomy, - - Appendectomy, cholecystectomy, CABG x 3, PCI x 3, hysterectomy. 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 Review of Systems Constitutional: Reports: Malaise, Weakness, Fatigue. Denies: Chills, Fever, Weight Change HEENT: Denies: Head Aches, Sinus Congestion, Sinus Drainage Cardiovascular: Denies: Chest Pain, Palpitations Respiratory: Denies: Cough, Shortness of breath at rest, Sputum production Gastrointestinal: Denies: Abdominal Pain, Nausea, Vomiting Genitourinary: Denies: Dysuria Musculoskeletal: Reports: Back Pain, Leg Pain. Denies: Joint Pain, Joint Tenderness Skin: Denies: Rash, Wounds Neurological: Denies: Numbness, Tingling, Focal weakness Psychiatric: Denies: Anxiety, Depression, Homicidal Ideations, Suicidal Ideations Hematologic/ Lymphatic: Denies: Easy Bruising, Easy Bleeding VTE Information - Inpt Only VTE Present on Admission: No VTE Mechan Device Prophylaxis: SCD's VTE Pharm Prophylaxis ordered?: No Reason prophylaxis not ordered:: Medical Contraindication - Holding for injection. Patient Problems: Active and Suspected Problems (Last Reviewed 10/29/18 @ 13:36 by Robert Bonilla MD) Intractable back pain (Acute) Radiculopathy (Acute) Subjective: Laying in the ED bed, notes improved from initial presentation, still discomfort to RLE, lumbar w/ attempting weight. Objective: Physical Examination: General: awake, alert, oriented x 3 and cooperative, laying in the ED bed in no apparent distress but notes discomfort w/ certain activities. Skin: normal color, turgor, no icterus, cyanosis. HEENT: AT/NC, EOMI, PERRLA, MMM, no carotid bruits or JVD noted. Lungs: CTA bilaterally, moderate effort, mild decrease BL bases, no rales, ronchi or wheezing. Heart: Regular rate and rhythm; no gallop, rub audible. Abdomen: soft, NTTP, ND, normal BS, no HSM. Extremities: no cyanosis, clubbing, BL LE pedal->maynard 2+ pitting edema, chronic. Neurological: patient awake, alert, oriented x 3; cognitive function intact; pupils equally reactive to light and accomodation; cranial nerves II-XII grossly normal, moving all 4 extremities however limited movement given RLE radiculopathy and lumbar pain, strength accordingly severely globally decreased. Psychiatric: affect appears normal, no acute evidence of depressive or anxiety feelings. - Physical Exam Vital Signs Temp Pulse Resp BP Pulse Ox 98.3 F 98 20 H 149/87 H 94 11/13/18 03:19 11/13/18 05:54 11/13/18 05:54 11/13/18 05:54 11/13/18 05:54 Oxygen Delivery Method Room Air Weight: 174 lb 13.225 oz Body Mass Index (BMI) 29.9 Laboratory Tests Past 24 Hrs 11/13/18 11/13/18 03:35 03:35 WBC 9.9 RBC 3.77 L Hgb 10.4 L Hct 32.1 L MCV 85.1 MCH 27.6 MCHC 32.4 RDW 14.1 RDW Differential 43.0 Plt Count 420 MPV 10.0 Immature Gran % (Auto) 0.800 Neut % (Auto) 68.0 Lymph % (Auto) 20.3 [place] % (Auto) 8.7 Eos % (Auto) 1.6 Baso % (Auto) 0.6 Absolute Neuts (auto) 6.7 Absolute Lymphs (auto) 2.01 Total Counted Not Reportable ESR 77 H Sodium 141 Potassium 3.4 L Chloride 105 Carbon Dioxide 24.0 Anion Gap 12 BUN 16 Creatinine 0.85 Estim Creat Clear Calc 44.82 Est GFR (MDRD) Af Amer 82 Est GFR (MDRD) Non-Af 68 BUN/Creatinine Ratio 18.7 Glucose 120 H Calcium 9.4 C-React Prot Ext Range 14.40 H Assessment/Plan All Active Problems (Last Reviewed 10/29/18 @ 13:36 by Robert Bonilla MD) Intractable back pain (Acute) Radiculopathy (Acute) Lightheaded (Acute) Constipation (Acute) Legionella pneumonia (Acute) SVT (supraventricular tachycardia) (Acute) Sepsis (Acute) Pneumonia (Resolved) The patient is a 83 y/o F w/ PMHx: Obesity, Diabetes mellitus type II, Hx TIA, HTN, HLD, Hypothyroidism, CAD s/p CABG x 3 and PCI x 3, History of Legionella PNA, Suspected PMR following w/ Rheumatology who presents to the [facility] ED on 11/13/18 with history of intractable lumbar back pain starting the evening prior, had onset upon awakening ongoing lumbar back pain in addition to shooting pain down her RLE. (1) Intractable Lumbar Back Pain w/ Radiculopathy and Suspected Polymyalgia rheumatica Flare: Work-up in the ED included T 98.3, heart rate initially 109--> 98, BP initially 180/93--> 149/87, respiratory rate 20, 94% room air, CBC with WBC 9.9, hemoglobin 10.4, platelet 420 without shift, ESR 77, CRP 14.4, BMP with potassium 3.4, glucose 120. Will admit to [facility], maintain on fall precautions, frequent positioning, po/IV pain regimen, will restart steroid regimen 40 mg daily given completion but if recurrent flare on taper would then plan to restart back at last effective dose, anti-emetics, bowel regimen. Will consult PT and OT for evaluation. Consulted Dr. Mccartney who is familiar with patient for consideration of block who is not available on 11/13/18 but noted he would notify his partner Dr. Zhou who will evaluate the patient. (2) CAD: s/p CABG x 3 and PCI x 3, continue home asa, statin, metoprolol. (3) Hypertension: Continue home regimen including Lasix, isosorbide, metoprolol, PRN hydralazine. (4) Hyperlipidemia: Continue home statin regimen. (5) Hypothyroidism: Continue home synthroid regimen. (6) Diabetes mellitus type II: Will hold home oral regimen, will continue home insulin regimen, ADA diet, accu checks w/ ISS. (7) Hypokalemia: Admission K+ 3.4, supplementation given, repeat level in AM. (8) DVT Prophylaxis: SCDs, defer chemoprophylaxis pending Dr. Mccartney evaluation for consideration block. Code Visit OBSV E&M: [id number] Initial observation care L3
[2018-11-13 07:35] LABS: Magnesium 1.6 mg/dL (1.6-2.6)
--- NOTE | 2018-11-13 08:53 | CASEMGMT ---
Social Work Note Per health officer questions, pt has completed HCPOA and Living Will but hasn't provided a copy to [facility] and refuses to bring in copy. Linda Cano STAFF ANESTHESIOLOGIST, BRAND STRATEGY MANAGER
[2018-11-13] MEDS: Furosemide 40 MG Tablet PO (09:00)
[2018-11-13] MEDS: Isosorbide Mononitrate 30 MG Tablet PO (09:00)
[2018-11-13] MEDS: Glucerna Shake 120 ML LIQUID PO ×2 (09:01→16:07)
[2018-11-13] MEDS: Levothyroxine 137 MCG Tablet PO (09:01)
[2018-11-13] MEDS: Metoprolol(XL)Succ 50 MG Tablet PO (09:01)
[2018-11-13] MEDS: Aspirin 81 MG TAB.CHEW PO (09:01)
[2018-11-13] MEDS: 0.9% Normal Saline 1,000 ML 100 ML IV (09:02)
[2018-11-13] MEDS: HYDROcodone Bitartrate/Apap 5/325 Tablet PO ×2 (09:04→18:36)
--- NOTE | 2018-11-13 10:34 | NURSING ---
Addendum entered by Ailyn Montero 11/13/18 12:15: Arian called this RN and states that pt will be having procedure at 1400 today in OR. She states that it will be only local anesthesia and that she will provide all paperwork needed for same. Marjorie, RN notified as well as pt and family member- of 1400 procedure time. Original Note: Addendum entered by Ailyn Montero 11/13/18 10:39: patient notified by this RN of NPO order by Dr. Mccartney-- and water/ bedside snack removed at this time. Patient notified this RN that she ate 1/2 a bagel, eggs and cereal this morning- and just finished. This RN returned call to Arian and notified her of same- understanding verbalized. Original Note: Arian from Dr. Mccartney's office called in and notified this RN that Dr. Mccartney would like pt to remain NPO and inquired if pt was receiving any blood thinners. Notified Arian that patient is only receiving baby aspirin and did receive this AM- otherwise no blood thinners noted on NOV. Understanding verbalized.
--- NOTE | 2018-11-13 11:30 | CASEMGMT ---
MARAH RIVAS Face to Face with patient for initial transition planning/care coordination assessment. MARAH RIVAS introduced self and role at [facility]. Patient lying in bed, alert and oriented, daughter at bedside. Patient willing to participate in assessment and is able to answer all questions appropriately. Care providers, pharmacy, and demographics verified. Patient wishes to discharge home, denies need for home health at this time. MARAH RIVAS discussed following up with PCP should patient reconsider HHC. Information given to patient regarding [facility] HHC and Medical Alert Program. Patient states she has no further needs or concerns at this time. CM to follow for discharge planning needs that may arise. PCP: Zane Specialists: Bib Preferred Pharmacy: [facility] Insurance: MMO [facility] Prescription Benefit: Yes Living Will/HPOA: Yes, Daughter Michelle Lively HPOA LNOK: 2 daughters Living Arrangements: Patient lives alone in 1st floor apartment in longterm community. Patient is independent at home. Transportation: self/daughters DME/HHC: Patient states she has cane. Sister may have walker that she can borrow. MARAH RIVAS offered to setup walker, patient denied due to possible cost. Patient denies home oxygen, Bipap, cpap, and nebulizer. Denied any previous HHC of SNF. Daughter states she can stay with patient for a few days. Disposition Plan: Patient to discharge home with family support and follow-up plans in place. Linda CLEANING, RN, CM
[2018-11-13 11:46] LABS: Bedside Glucose 287 mg/dL (70-110)
--- NOTE | 2018-11-13 12:59 | NURSING ---
called report to ac. pt sent to ac. daughter at bedside,.
[2018-11-13 14:21] LABS: Bedside Glucose 275 mg/dL (70-110)
--- NOTE | 2018-11-13 14:50 | DCINST_ITS ---
- Discharge Diagnoses Current Active Problems: Current Active and Chronic Problems (Last Reviewed 10/29/18 @ 13:36 by Robert Bonilla MD) Diabetes mellitus, type II (Chronic) Obesity (BMI 30.0-34.9) (Chronic) Intractable back pain (Acute) Radiculopathy (Acute) Severe lower back pain due to lumbar spinal stenosis and lumbar radiculopathy You will use the following diet at home:: No restrictions, Other Your food should be the consistency of: Regular Your liquids should be the consistency of: Regular/Thin Discharge Activity: Return to Normal Activity, - - As tolerated Return to work on:: 11/23/18 May shower in (days): 1 May resume sexual activity in: No Restrictions Ice area for (Minutes): 2 Weight Bearing Status: Weight bearing as tolerated Call your doctor if your incision/area has: Continuous Slow Oozing, Increased Pain/ Swelling, Increased Redness, Foul Smelling Discharge, Swelling at the incision site Call your doctor if you observe: Fever of 101 or Higher, Coldness, Increased Pain, Numbness or Tingling, Inability to have a bowel movement, Calf discomfort, Uncontrolled pain Suture Line Care: Avoid Pulling/Pushing, Avoid Pinching/Bending Change Dressing in (Days):: 1 Remove Dressing in (days):: 1 Cleanse incision/area with: Soap & Water Allergies/Adverse Reactions: Allergies No Known Allergies Allergy (Verified 11/13/18 03:25) Medications to take at Discharge Levothyroxine [Synthroid] 137 mcg PO DAILY 10/13/13 Potassium Chloride [Klor-Con 10] 20 meq PO TID 10/13/13 Nitroglycerin [Nitrostat] 0.4 mg SUBLINGUAL Q5M PRN 12/21/13 ergocalciferol (vitamin D2) 50,000 unit capsule 50,000 unit PO QMONTH 11/18/17 atorvastatin 20 mg tablet 40 mg PO QHS tab 11/24/17 Glipizide/Metformin HCl [Glipizide-Metformin 2.5-500 mg] 2 ea PO BID 03/31/18 insulin glargine (U-300) conc. 300 unit/mL (3 mL) subcutaneous pen 27 unit SC QDAY ml 04/08/18 Metoprolol(XL)Succ [Toprol Xl (Beta Antwon)] 50 mg PO DAILY 04/22/18 Aspirin [Aspirin, Baby] 81 mg PO DAILY@0800 07/30/18 isosorbide mononitrate ER 30 mg tablet,extended release 24 hr 30 mg PO QAM #90 tab 11/03/18 Furosemide 40 mg PO DAILY 11/13/18 Hydrocodone/Acetaminophen [Hydrocodone-Acetamin 5-325 mg] 0.5 tab PO BID PRN 11/13/18 Primary Care Physician: Brian Degroot Chi, MD [Primary Care Provider] - Test Results: Test results from this visit will be discussed in further detail at your follow- up appointment, if applicable. Please Follow Up With: Melva Zhou MD Please Follow Up With: Priyanka Mccartney MD
--- NOTE | 2018-11-13 14:50 | RAD_ITS ---
STUDY: X-RAY - LUMBAR SPINE REASON FOR EXAM: Female, 83 years old. Nerve block TECHNIQUE: 7 C-arm view(s) of the lumbar spine were obtained. 33.5 seconds fluoroscopy time. COMPARISON: None FINDINGS: These images show lower lumbar spine needles in positions consistent with L4-L5 and L5-S1 blocks. Correlate with procedure notes. Electronically Signed: Jonathan Pineda MD at 15:58 EST , Service support , RAD/Lumbar Spine 2 or 3 Views
[2018-11-13] MEDS: Triamcinolone Acetonide 40 MG/ML Vial (15:00)
--- NOTE | 2018-11-13 15:15 | OP.PCM_ITS ---
Problem List (1) Acute right lumbar radiculopathy Status: Acute (2) Acute right lumbar radiculopathy Status: Acute (3) Intervertebral disc stenosis of neural canal of lumbar region Status: Acute (4) Intervertebral disc stenosis of neural canal of lumbar region Status: Acute (5) Intractable back pain Status: Acute (6) Radiculopathy Status: Acute Qualifiers: Spinal region: unspecified Qualified Code(s): M54.10 - Radiculopathy, site unspecified Report of Operation Date of Procedure: 11/13/18 Pre-Operative Diagnosis: Intractable lower back pain and severe right lower extremity radiculopathy intractable lower back pain and severe right lower extremity radiculopathy. Lumbar spinal stenosis at the L4-5-S1 Post-Operative Diagnosis: Same Surgery/Procedure Performed:: Right side lumbar transforaminal epidural steroid injection at the right side at L4-5 , L5-S1 under fluoroscopy guidance Description of Surgical Findings:: Patient is admitted with severe intractable lower back pain and right lower extremity radiculopathy, reviewed H&P, patient is currently under pain management with . He has lumbar spinal stenosis with rheumatoid arthritis and diabetes mellitus, history of coronary artery disease, patient has severely declined function since she is having this episode of increasing back and right lower extremity pain. Patient has before treated with infection and steroids as well as pain management blocks and has positive response. I was asked by Dr. Mccartney to come and evaluate the patient and per report provided here was injection to help with pain relief until able to become functioning and common follow-up in the office for further evaluation Assessment and extent of the procedure with the patient and her daughter, also discussed that the procedure is been provided to provide pain relief to patient however further evaluation need to be continue with his primary care and pain management provider both expressed understanding Under sterile conditions. Patient placed in the prone position, pressure points were padded, patient was ready from the nursing and the anesthesia team. After identification of the side and the target area for the block under guided fluoroscopy, the entry site was marked with marking pen. I used Betadine for sterilization of the skin, sterile draping were applied. Using 25-gauge needle to infiltrate the skin with local anesthesia using preservative-free lidocaine 0.5% injected 2.5 mL at site of entry at the right L4-5 and right L5-S1 foramen Using guided fluoroscopy, accessed the the posterior epidural space using 22 spinal 22 -gauge spinal needles under lateral oblique approach approach, accessed the site was assisted with AP, oblique and lateral fluoroscopy, followed by using dumb-wx-kabzytyqef technique using preservative-free normal saline, negative aspiration of CSF and blood. Injected contrast solution [1] mL under live fluoroscopy which showed good spread of the contrast to the lateral epidural space and to the targeted area of the injection at right [ L4-5] and right L5-S1. Injected [2] mL of mixture of preservative-free lidocaine and Kenalog [20] mg for the procedure which showed appropriate spread in the in the right L4-5 L5 lateral epidural space. Patient has no pain at the time of the injection Intact neurological signs of the lower extremity postprocedure [place] was removed, pressure dressing were applied. Patient tolerated the procedure well and was taken to the recovery. Patient transferred back to pain management was to continue home physical therapy and discharge once medically appropriate Type of Anesthesia:: Local MAC - Complications None
[2018-11-13] MEDS: Insulin Lispro 100 UNIT/ML INSULN.PEN SC ×2 (16:07→22:05)
[2018-11-13 16:10] LABS: Bedside Glucose 237 mg/dL (70-110)
--- NOTE | 2018-11-13 17:25 | PCM.PN.HOSP ---
Patient Problems: Active and Suspected Problems (Last Reviewed 10/29/18 @ 13:36 by Robert Bonilla MD) Intractable back pain (Acute) Radiculopathy (Acute) Acute right lumbar radiculopathy (Acute) Acute right lumbar radiculopathy (Acute) Intervertebral disc stenosis of neural canal of lumbar region (Acute) Intervertebral disc stenosis of neural canal of lumbar region (Acute) Subjective: Patient seen and examined. She was admitted with a complaint of generalized intractable pain and is been managed for polymyalgia rheumatica flareup. She is to have a pain block today by pain management. Patient has no complaints and states pain is improved. Review of systems otherwise negative. Labs and vitals reviewed. Vitals/I&O's: Vital Signs Temp Pulse Resp BP Pulse Ox 97.8 F 71 16 123/50 H 94 11/13/18 15:59 11/13/18 15:59 11/13/18 15:59 11/13/18 15:59 11/13/18 15:59 Oxygen Delivery Method Room Air Weight: 161 lb 2.526 oz Body Mass Index (BMI) 27.6 Intake and Output for Last 24 Hours 11/11/18 11/12/18 11/13/18 23:59 23:59 23:59 Intake Total 929 / 929 Balance 929 / 929 General: Alert, Oriented x3, Cooperative, No apparent distress HEENT: Atraumatic, PERRLA, EOMI, Normocephalic Oral: Moist Mucosa Neck: Supple, No JVD, Negative Carotid Bruits Lungs: Clear to auscultation, Normal air movement, No rhonchi, No wheeze, No rales Cardiovascular: Regular rate, Regular Rhythm, Normal S1, Normal S2, No murmurs Abdomen: Bowel Sounds Present, Soft, Non Tender, Non-Distended, No Hepato-splenomegaly Extremities: No clubbing, No cyanosis, No edema, Capillary Refill Less than 3 Seconds Skin: No rashes, No breakdown Musculoskeletal: No Tenderness to Palpation of Joints or Extremities Lymphatic: No Cervical, Supraclavicular, or Inguinal Adenopathy Neurological: Cranial nerves II-XII grossly intact, Neuro grossly intact, Motor Exam 5/5 strength throughout Psych/Mental Status: Normal Affect, Appropriate, Alert and oriented to time, place, person, mood and affect Laboratory Results 11/13/18 03:35: WBC 9.9, RBC 3.77 L, Hgb 10.4 L, Hct 32.1 L, MCV 85.1, MCH 27.6, MCHC 32.4, RDW 14.1, RDW Differential 43.0, Plt Count 420, MPV 10.0, Immature Gran % (Auto) 0.800, Neut % (Auto) 68.0, Lymph % (Auto) 20.3, [place] % (Auto) 8.7, Eos % (Auto) 1.6, Baso % (Auto) 0.6, Absolute Neuts (auto) 6.7, Absolute Lymphs (auto) 2.01, Total Counted Not Reportable, ESR 77 H 11/13/18 03:35: Sodium 141, Potassium 3.4 L, Chloride 105, Carbon Dioxide 24.0, Anion Gap 12, BUN 16, Creatinine 0.85, Estim Creat Clear Calc 44.82, Est GFR (MDRD) Af Amer 82, Est GFR (MDRD) Non-Af 68, BUN/Creatinine Ratio 18.7, Glucose 120 H, Calcium 9.4, C-React Prot Ext Range 14.40 H 11/13/18 07:10: Magnesium 1.6 11/13/18 11:17: POC Glucose 287 H 11/13/18 14:15: POC Glucose 275 H 11/13/18 15:57: POC Glucose 237 H Diagnostic Data Lumbar Spine X-Ray 11/13/18 14:50 Current Medications Acetaminophen (Tylenol) 650 mg PO Q6H PRN PRN PRN Reason: Non-cardiac pain (mod-severe) Hydrocodone Bitart/Acetaminophen ([place] 5mg-325mg) 1 - 2 tablet PO Q6H PRN PRN PRN Reason: Moderate-severe pain Last Admin: 11/13/18 09:04 Dose: 2 tablet Al Hydroxide/Mg Hydroxide (Mylanta Ii) 30 ml PO Q6H PRN PRN PRN Reason: Gastric burning Aspirin (Aspirin, Baby) 81 mg PO DAILY@0800 [facility] Last Admin: 11/13/18 09:01 Dose: 81 mg Atorvastatin Calcium (Lipitor) 40 mg PO QHS LARRY Furosemide (Lasix) 40 mg PO DAILY [facility] Last Admin: 11/13/18 09:00 Dose: 40 mg Hydralazine HCl (Apresoline Iv) 10 mg IV Q4H PRN PRN PRN Reason: SBP > 160 Insulin Glargine (Lantus (Bkc)) 27 units SC DAILY [facility] Last Admin: 11/13/18 10:29 Dose: 27 u Insulin Human Lispro (Humalog Kwikpen (Bkc)) 0 unit SC ACHS [facility]; Protocol Last Admin: 11/13/18 16:07 Dose: 3 ml Isosorbide Mononitrate (Imdur) 30 mg PO QAM [facility] Last Admin: 11/13/18 09:00 Dose: 30 mg Levothyroxine Sodium (Synthroid) 137 mcg PO DAILY@0600 [facility] Last Admin: 11/13/18 09:01 Dose: 137 mcg Magnesium Hydroxide (Milk Of Magnesia) 30 ml PO DAILY PRN PRN PRN Reason: Constipation Metoprolol Succinate (Toprol Xl (Beta Antwon)) 50 mg PO DAILY [facility] Last Admin: 11/13/18 09:01 Dose: 50 mg Morphine Sulfate () 1 - 2 mg IV Q4H PRN PRN PRN Reason: PAIN Nutritional Formula (Lactose Free) (Glucerna Shake) 120 ml PO TIDCM [facility] Last Admin: 11/13/18 16:07 Dose: 120 ml Ondansetron HCl (Zofran) 4 mg IV Q8H PRN PRN PRN Reason: NAUSEA/VOMITING Potassium Chloride (K-Dur) 20 meq PO BIDCM [facility] Last Admin: 11/13/18 16:08 Dose: 20 meq Prednisone () 40 mg PO DAILY@0800 [facility] Sodium Chloride () 5 - 15 ml IV UD PRN PRN Reason: SALINE FLUSH Medical Necessity - Tobacco Use Smoking Status: Former smoker Tobacco Use: Non-smoker Assessment/Plan All Active Problems (Last Reviewed 10/29/18 @ 13:36 by Robert Bonilla MD) Intractable back pain (Acute) Radiculopathy (Acute) Acute right lumbar radiculopathy (Acute) Acute right lumbar radiculopathy (Acute) Intervertebral disc stenosis of neural canal of lumbar region (Acute) Intervertebral disc stenosis of neural canal of lumbar region (Acute) Lightheaded (Acute) Constipation (Acute) Legionella pneumonia (Acute) SVT (supraventricular tachycardia) (Acute) Sepsis (Acute) Pneumonia (Resolved) 1. Intractable lumbar back pain with radiculopathy suspect flareup of polymyalgia rheumatica CRP was elevated at 14.40 and ESR was also elevated at 77. pain has improved now fall precautions On p.o. steroids. For pain block today by Dr. Zhou who is Dr. Mccartney's partner. 2. Hypokalemia: Replace and monitor. Potassium was 3.4. 2. CAD s/p CABG and PCI x3: On aspirin, statin, imdur and metoprolol 3. Hypertension: On metoprolol, Lasix and Imdur. 4. Hyperlipidemia: continue statin 5. Hypothyroidism: on synthroid 6. diabetes mellitus: on lantus 27IU daily and ISS. Accuchecks ACHS. DVT prophylaxis: SCDs. Code Visit OBSV E&M: 40367 Subsequent observation care L2
--- NOTE | 2018-11-13 17:38 | PN_ITS ---
Patient Problems: Active and Suspected Problems (Last Reviewed 10/29/18 @ 13:36 by Robert Bonilla MD) Intractable back pain (Acute) Radiculopathy (Acute) Acute right lumbar radiculopathy (Acute) Acute right lumbar radiculopathy (Acute) Intervertebral disc stenosis of neural canal of lumbar region (Acute) Intervertebral disc stenosis of neural canal of lumbar region (Acute) Subjective: Patient seen and examined. She was admitted with a complaint of generalized intractable pain and is been managed for polymyalgia rheumatica flareup. She is to have a pain block today by pain management. Patient has no complaints and states pain is improved. Review of systems otherwise negative. Labs and vitals reviewed. Vitals/I&O's: Vital Signs Temp Pulse Resp BP Pulse Ox 97.8 F 71 16 123/50 H 94 11/13/18 15:59 11/13/18 15:59 11/13/18 15:59 11/13/18 15:59 11/13/18 15:59 Oxygen Delivery Method Room Air Weight: 161 lb 2.526 oz Body Mass Index (BMI) 27.6 Intake and Output for Last 24 Hours 11/11/18 11/12/18 11/13/18 23:59 23:59 23:59 Intake Total 929 / 929 Balance 929 / 929 General: Alert, Oriented x3, Cooperative, No apparent distress HEENT: Atraumatic, PERRLA, EOMI, Normocephalic Oral: Moist Mucosa Neck: Supple, No JVD, Negative Carotid Bruits Lungs: Clear to auscultation, Normal air movement, No rhonchi, No wheeze, No rales Cardiovascular: Regular rate, Regular Rhythm, Normal S1, Normal S2, No murmurs Abdomen: Bowel Sounds Present, Soft, Non Tender, Non-Distended, No Hepato- splenomegaly Extremities: No clubbing, No cyanosis, No edema, Capillary Refill Less than 3 Seconds Skin: No rashes, No breakdown Musculoskeletal: No Tenderness to Palpation of Joints or Extremities Lymphatic: No Cervical, Supraclavicular, or Inguinal Adenopathy Neurological: Cranial nerves II-XII grossly intact, Neuro grossly intact, Motor Exam 5/5 strength throughout Psych/Mental Status: Normal Affect, Appropriate, Alert and oriented to time, place, person, mood and affect Laboratory Results 11/13/18 03:35: WBC 9.9, RBC 3.77 L, Hgb 10.4 L, Hct 32.1 L, MCV 85.1, MCH 27.6, MCHC 32.4, RDW 14.1, RDW Differential 43.0, Plt Count 420, MPV 10.0, Immature Gran % (Auto) 0.800, Neut % (Auto) 68.0, Lymph % (Auto) 20.3, [place] % (Auto) 8.7, Eos % (Auto) 1.6, Baso % (Auto) 0.6, Absolute Neuts (auto) 6.7, Absolute Lymphs (auto) 2.01, Total Counted Not Reportable, ESR 77 H 11/13/18 03:35: Sodium 141, Potassium 3.4 L, Chloride 105, Carbon Dioxide 24.0, Anion Gap 12, BUN 16, Creatinine 0.85, Estim Creat Clear Calc 44.82, Est GFR (MDRD) Af Amer 82, Est GFR (MDRD) Non-Af 68, BUN/Creatinine Ratio 18.7, Glucose 120 H, Calcium 9.4, C-React Prot Ext Range 14.40 H 11/13/18 07:10: Magnesium 1.6 11/13/18 11:17: POC Glucose 287 H 11/13/18 14:15: POC Glucose 275 H 11/13/18 15:57: POC Glucose 237 H Diagnostic Data Lumbar Spine X-Ray 11/13/18 14:50 Current Medications Acetaminophen (Tylenol) 650 mg PO Q6H PRN PRN PRN Reason: Non-cardiac pain (mod-severe) Hydrocodone Bitart/Acetaminophen ([place] 5mg-325mg) 1 - 2 tablet PO Q6H PRN PRN PRN Reason: Moderate-severe pain Last Admin: 11/13/18 09:04 Dose: 2 tablet Al Hydroxide/Mg Hydroxide (Mylanta Ii) 30 ml PO Q6H PRN PRN PRN Reason: Gastric burning Aspirin (Aspirin, Baby) 81 mg PO DAILY@0800 [facility] Last Admin: 11/13/18 09:01 Dose: 81 mg Atorvastatin Calcium (Lipitor) 40 mg PO QHS LARRY Furosemide (Lasix) 40 mg PO DAILY [facility] Last Admin: 11/13/18 09:00 Dose: 40 mg Hydralazine HCl (Apresoline Iv) 10 mg IV Q4H PRN PRN PRN Reason: SBP > 160 Insulin Glargine (Lantus (Bkc)) 27 units SC DAILY [facility] Last Admin: 11/13/18 10:29 Dose: 27 u Insulin Human Lispro (Humalog Kwikpen (Bkc)) 0 unit SC ACHS [facility]; Protocol Last Admin: 11/13/18 16:07 Dose: 3 ml Isosorbide Mononitrate (Imdur) 30 mg PO QAM [facility] Last Admin: 11/13/18 09:00 Dose: 30 mg Levothyroxine Sodium (Synthroid) 137 mcg PO DAILY@0600 [facility] Last Admin: 11/13/18 09:01 Dose: 137 mcg Magnesium Hydroxide (Milk Of Magnesia) 30 ml PO DAILY PRN PRN PRN Reason: Constipation Metoprolol Succinate (Toprol Xl (Beta Antwon)) 50 mg PO DAILY [facility] Last Admin: 11/13/18 09:01 Dose: 50 mg Morphine Sulfate () 1 - 2 mg IV Q4H PRN PRN PRN Reason: PAIN Nutritional Formula (Lactose Free) (Glucerna Shake) 120 ml PO TIDCM [facility] Last Admin: 11/13/18 16:07 Dose: 120 ml Ondansetron HCl (Zofran) 4 mg IV Q8H PRN PRN PRN Reason: NAUSEA/VOMITING Potassium Chloride (K-Dur) 20 meq PO BIDCM [facility] Last Admin: 11/13/18 16:08 Dose: 20 meq Prednisone () 40 mg PO DAILY@0800 [facility] Sodium Chloride () 5 - 15 ml IV UD PRN PRN Reason: SALINE FLUSH Medical Necessity - Tobacco Use Smoking Status: Former smoker Tobacco Use: Non-smoker Assessment/Plan All Active Problems (Last Reviewed 10/29/18 @ 13:36 by Robert Bonilla MD) Intractable back pain (Acute) Radiculopathy (Acute) Acute right lumbar radiculopathy (Acute) Acute right lumbar radiculopathy (Acute) Intervertebral disc stenosis of neural canal of lumbar region (Acute) Intervertebral disc stenosis of neural canal of lumbar region (Acute) Lightheaded (Acute) Constipation (Acute) Legionella pneumonia (Acute) SVT (supraventricular tachycardia) (Acute) Sepsis (Acute) Pneumonia (Resolved) 1. Intractable lumbar back pain with radiculopathy * suspect flareup of polymyalgia rheumatica * CRP was elevated at 14.40 and ESR was also elevated at 77. * pain has improved now * fall precautions * On p.o. steroids. * For pain block today by Dr. Zhou who is Dr. Mccartney's partner. * 2. Hypokalemia: Replace and monitor. Potassium was 3.4. 2. CAD s/p CABG and PCI x3: On aspirin, statin, imdur and metoprolol 3. Hypertension: On metoprolol, Lasix and Imdur. 4. Hyperlipidemia: continue statin 5. Hypothyroidism: on synthroid 6. diabetes mellitus: on lantus 27IU daily and ISS. Accuchecks ACHS. DVT prophylaxis: SCDs. Code Visit OBSV E&M: 44239 Subsequent observation care L2
[2018-11-13 22:00] LABS: Bedside Glucose 147 mg/dL (70-110)
[2018-11-13] MEDS: Atorvastatin Calcium 40 MG Tablet PO (22:05)
[2018-11-13 22:11] LABS: Bedside Glucose 220 mg/dL (70-110)
[2018-11-14 02:29] VITALS: BP 160/83; PULSE 90; RESP 18; TEMP 37.1; O2SAT 96
[2018-11-14] MEDS: Levothyroxine 137 MCG Tablet PO (04:44)
[2018-11-14] MEDS: HYDROcodone Bitartrate/Apap 5/325 Tablet PO ×2 (04:44→12:07)
[2018-11-14] MEDS: Insulin Lispro 100 UNIT/ML INSULN.PEN SC ×2 (06:33→13:51)
[2018-11-14 06:51] LABS: Bedside Glucose 157 mg/dL (70-110)
[2018-11-14 06:53] LABS: Absolute Lymphocyte Count 2.07 X10^3/ul (0.83-4.51); Absolute Neutrophil Count 7.6 X10^3/uL (2.0-7.7); Basophil# 0.05 X10^3/uL; Basophil% 0.5 % (0-1); Eosinophils% 0.9 % (0-5); Hematocrit 29.4 % (37-47); Hemoglobin 9.4 g/dl (12.0-15.0); Lymphocyte # 2.07 X10^3/ul (4.0); Lymphocyte % 19.4 % (19-41); Mean Corpuscular Volume 87.5 fL (81-99); Mean Platelet Vol. 10.3 fl (6.2-12.0); Monocyte# 0.81 X10^3/uL; Monocyte% 7.6 % (0-10); Neutrophil # 7.59 X10^3/uL (2.7-7.7); Neutrophil % 70.9 % (47-70); Platelet Count 436 K/mm3 (150-450); RBC Distribution Width SD 42.6 fl (35.1-43.9); Red Blood Count 3.36 M/mm3 (4.2-5.4); White Blood Count 10.7 K/mm3 (4.4-11.0)
[2018-11-14 07:03] LABS: POSITIVE COUNT NO; POSITIVE DIFFERENTIAL NO; POSITIVE MORPHOLOGY NO
[2018-11-14 07:06] LABS: BUN 18 mg/dL (7-18); Estimated Creatinine Clearance 42.33 ml/min; Glucose 154 mg/dL (74-106)
[2018-11-14 07:07] LABS: Anion Gap 8 (5-15); BUN/Creat Ratio 20.1 RATIO (10-20); Chloride 107 mmol/L (98-107); EST Glomerular Filtration Rate 64 mL/min (>60); Est Glom Filt Rate - Afr Amer 78 mL/min (>60); Potassium 3.9 mmol/L (3.5-5.1); Sodium Level 142 mmol/L (136-145)
[2018-11-14 08:30] VITALS: BP 145/71; PULSE 97; RESP 18; TEMP 36.7; O2SAT 94
[2018-11-14 08:58] VITALS: PULSE 97
[2018-11-14] MEDS: predniSONE 20 MG Tablet 40 MG PO (08:58)
[2018-11-14] MEDS: Glucerna Shake 120 ML LIQUID PO (08:58)
[2018-11-14] MEDS: Metoprolol(XL)Succ 50 MG Tablet PO (08:58)
[2018-11-14] MEDS: Isosorbide Mononitrate 30 MG Tablet PO (08:59)
[2018-11-14] MEDS: Furosemide 40 MG Tablet PO (08:59)
[2018-11-14] MEDS: Aspirin 81 MG TAB.CHEW PO (08:59)
--- NOTE | 2018-11-14 09:16 | VDLE_ITS ---
Reason For Study: LEG PAIN RIGHT LEFT GSV is normal. CFV is compressible, spontaneous, phasic, CFV is compressible, spontaneous, phasic, competent, and demonstrates normal competent and demonstrates normal augmentation. augmentation. FV is compressible, spontaneous, phasic, competent and demonstrates normal augmentation. POP V is compressible, spontaneous, phasic, competent and demonstrates normal augmentation. T/P Trunk is compressible. PTV is compressible. RT PerV is compressible. Procedure Exam performed portable in patient room. A preliminary report was called and/or faxed to Pt. nurse Cuadra. Interpretation Summary There is no evidence of right lower extremity deep vein thrombosis. Right greater saphenous vein appears patent and compressible segmentally. Normal flow patterns left common femoral vein Ordering Physician: Gloria Nix Referring Physician: Brian Degroot Chi Performed By: Johnna Rondon RVT
[2018-11-14 12:11] LABS: Bedside Glucose 209 mg/dL (70-110)
--- NOTE | 2018-11-14 13:20 | DCINST_ITS ---
- Discharge Diagnoses Current Active Problems: Current Active and Chronic Problems (Last Reviewed 10/29/18 @ 13:36 by Robert Bonilla MD) Diabetes mellitus, type II (Chronic) Obesity (BMI 30.0-34.9) (Chronic) Intractable back pain (Acute) Radiculopathy (Acute) Acute right lumbar radiculopathy (Acute) Acute right lumbar radiculopathy (Acute) Intervertebral disc stenosis of neural canal of lumbar region (Acute) Intervertebral disc stenosis of neural canal of lumbar region (Acute) You will use the following diet at home:: Cardiac Your food should be the consistency of: Regular Your liquids should be the consistency of: Regular/Thin Discharge Activity: Return to Normal Activity, - - As tolerated Return to work on:: 11/23/18 May shower in (days): 1 May resume sexual activity in: No Restrictions Ice area for (Minutes): 2 Weight Bearing Status: Weight bearing as tolerated Call your doctor if your incision/area has: Continuous Slow Oozing, Increased Pain/ Swelling, Increased Redness, Foul Smelling Discharge, Swelling at the incision site Call your doctor if you observe: Fever of 101 or Higher, Coldness, Increased Pain, Numbness or Tingling, Inability to have a bowel movement, Calf discomfort, Uncontrolled pain Suture Line Care: Avoid Pulling/Pushing, Avoid Pinching/Bending Change Dressing in (Days):: 1 Remove Dressing in (days):: 1 Cleanse incision/area with: Soap & Water Allergies/Adverse Reactions: Allergies No Known Allergies Allergy (Verified 11/13/18 03:25) Medications to take at Discharge Levothyroxine [Synthroid] 137 mcg PO DAILY 10/13/13 Potassium Chloride [Klor-Con 10] 20 meq PO TID 10/13/13 Nitroglycerin [Nitrostat] 0.4 mg SUBLINGUAL Q5M PRN 12/21/13 ergocalciferol (vitamin D2) 50,000 unit capsule 50,000 unit PO QMONTH 11/18/17 atorvastatin 20 mg tablet 40 mg PO QHS tab 11/24/17 Glipizide/Metformin HCl [Glipizide-Metformin 2.5-500 mg] 2 ea PO BID 03/31/18 insulin glargine (U-300) conc. 300 unit/mL (3 mL) subcutaneous pen 27 unit SC QDAY ml 04/08/18 Metoprolol(XL)Succ [Toprol Xl (Beta Antwon)] 50 mg PO DAILY 04/22/18 Aspirin [Aspirin, Baby] 81 mg PO DAILY@0800 07/30/18 isosorbide mononitrate ER 30 mg tablet,extended release 24 hr 30 mg PO QAM #90 tab 11/03/18 Furosemide 40 mg PO DAILY 11/13/18 Hydrocodone/Acetaminophen [Hydrocodone-Acetamin 5-325 mg] 0.5 tab PO BID PRN 11/13/18 MethylPREDNISolone DosePak [Medrol DosePak] 4 mg PO UD #1 box 11/14/18 The following prescriptions were given: MethylPREDNISolone DosePak [Medrol DosePak] 4 mg PO UD #1 box Primary Care Physician: Brian Degroot Chi, MD [Primary Care Provider] - Test Results: Test results from this visit will be discussed in further detail at your follow- up appointment, if applicable. Please Follow Up With: Priyanka Mccartney MD When: 2 weeks Please Follow Up With: Priyanka Mccartney MD Proposed Discharge Date: 11/14/18
--- NOTE | 2018-11-14 13:21 | DS.PCM_ITS ---
Discharge Date and Diagnosis Date of Admission: 11/13/18 Date of Discharge: 11/14/18 - Primary Discharge Diagnosis Active and Suspected Problems (Last Reviewed 10/29/18 @ 13:36 by Robert Bonilla MD) Intractable back pain (Acute) Radiculopathy (Acute) Acute right lumbar radiculopathy (Acute) Acute right lumbar radiculopathy (Acute) Intervertebral disc stenosis of neural canal of lumbar region (Acute) Intervertebral disc stenosis of neural canal of lumbar region (Acute) - Secondary Discharge Diagnosis Chronic Problems (Last Reviewed 10/29/18 @ 13:36 by Robert Bonilla MD) Diabetes mellitus, type II (Chronic) Obesity (BMI 30.0-34.9) (Chronic) GI bleed (Chronic) 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) ZXO-QMK-Igcb-Mid OM1 w/ 2.25 x 12 mm Promus Premier 12/30/2013 ELQ-IDE-GFI-Prox-Mid OM2 w/ 3.0 x 23 mm Promus Stent 03/05/2010 KVG-CUS-NVW-OM2 w/ Taxus Stent 04/2006 CABG x 3 SVG to D1, SVG-OM & SVG-RCA History of coronary artery stent placement (Chronic 12/30/13) ZRJ-SVY-Jexc-Mid OM1 w/ 2.25 x 12 mm Promus Premier 12/30/2013 AYK-TDR-NJI-Prox-Mid OM2 w/ 3.0 x 23 mm Promus Stent 03/05/2010 IKN-PLV-KWY-OM2 w/ Taxus Stent 04/2006 H/O coronary artery bypass surgery (Chronic 09/08/92) CABG x 3 SVG to D1, SVG-OM & SVG-RCA HLD (hyperlipidemia) (Chronic) TIA (transient ischemic attack) (Chronic) Carotid bruit (Chronic) Hypertension (Chronic) Hospital Course and Treatment Imaging Results: Diagnostic Data Lumbar Spine X-Ray 11/13/18 14:50 Operations: None Procedures: - - Right sided lumbar transforaminal epidural steroid injection at the right at L4-L5 and L5-S1 under fluoroscopic guidance Summary of Care Provided: Patient is an 83-year-old female with past medical history as listed who presented to the ED on 11/13/2018 with a complaint of intractable lumbar back pain which started 1 night prior with shooting pain down her right leg. She had elevated ESR and CRP which she had presented with in the past and had been treated with pain blocks and steroids. She was admitted and managed for polymyalgia rheumatica flareup and intractable back pain with right lower extremity radiculopathy. She was started on IV Zofran and morphine, prednisone and pain management was consulted. She had a right sided lumbar transforaminal epidural steroid injection of the right side at L4-L5 and L5-S1 under fluoroscopic guidance on 11/13/2018. Patient tolerated procedure well but still complained of right lower extremity pain. She was concerned about a possible DVT and so a duplex was ordered of the right lower extremity which was negative. On further questioning, general the patient had been prescribed pain medication by her pain management doctor but had not been taking it because she wanted to see if she could tolerate the pain. Patient was counseled to take the pain meds as needed for the right lower extremity pain. She was discharged home on 11/14/2018 and is to follow-up with her primary care doctor and pain management doctor. Patient seen and examined prior to discharge. Still complained of right lower extremity pain but denied any fever or chills, palpitations or cough or chest pain, abdominal pain, diarrhea vomiting. Review of systems otherwise negative. Labs and vitals as well. o/e: Vital Signs Height 5 ft 4 in Weight: 161 lb 2.526 oz Weight in Pounds 161.2 lbs Pulse Ox 94 Temperature 98.1 F Pulse Rate 97 Respiratory Rate 18 Blood Pressure 145/71 Blood Pressure Position Sitting General: Alert, Oriented x3, Cooperative, No apparent distress HEENT: Atraumatic, PERRLA, EOMI, Normocephalic Oral: Moist Mucosa Neck: Supple, No JVD, Negative Carotid Bruits Lungs: Clear to auscultation, Normal air movement, No rhonchi, No wheeze, No rales Cardiovascular: Regular rate, Regular Rhythm, Normal S1, Normal S2, No murmurs Abdomen: Bowel Sounds Present, Soft, Non Tender, Non-Distended, No Hepato- splenomegaly Extremities: No clubbing, No cyanosis, No edema, Capillary Refill Less than 3 Seconds Skin: No rashes, No breakdown Musculoskeletal: No Tenderness to Palpation of Joints or Extremities Lymphatic: No Cervical, Supraclavicular, or Inguinal Adenopathy Neurological: Cranial nerves II-XII grossly intact, Neuro grossly intact, Motor Exam 5/5 strength throughout Psych/Mental Status: Normal Affect, Appropriate, Alert and oriented to time, place, person, mood and affect Plan as described above. - Physical Exam Vital Signs Temp Pulse Resp BP Pulse Ox 98.1 F 97 18 145/71 H 94 11/14/18 08:30 11/14/18 08:58 11/14/18 08:30 11/14/18 08:30 11/14/18 08:30 Oxygen Delivery Method Room Air Weight: 161 lb 2.526 oz Body Mass Index (BMI) 27.6 Intake and Output for Last 24 Hours 11/12/18 11/13/18 11/14/18 23:59 23:59 23:59 Intake Total 1429 / 1429 Balance 1429 / 1429 Laboratory Tests Past 24 Hrs 11/14/18 11/14/18 06:24 06:24 WBC 10.7 RBC 3.36 L Hgb 9.4 L Hct 29.4 L MCV 87.5 MCH 28.0 MCHC 32.0 RDW 14.0 RDW Differential 42.6 Plt Count 436 MPV 10.3 Immature Gran % (Auto) 0.700 Neut % (Auto) 70.9 H Lymph % (Auto) 19.4 [place] % (Auto) 7.6 Eos % (Auto) 0.9 Baso % (Auto) 0.5 Absolute Neuts (auto) 7.6 Absolute Lymphs (auto) 2.07 Total Counted Not Reportable Sodium 142 Potassium 3.9 Chloride 107 Carbon Dioxide 27.0 Anion Gap 8 BUN 18 Creatinine 0.90 Estim Creat Clear Calc 42.33 Est GFR (MDRD) Af Amer 78 Est GFR (MDRD) Non-Af 64 BUN/Creatinine Ratio 20.1 H Glucose 154 H Calcium 9.0 POC Glucose 11/14/18 11/14/18 11/13/18 12:08 06:31 22:01 POC Glucose 209 H 157 H 220 H 11/13/18 11/13/18 11/13/18 15:57 14:15 07:31 POC Glucose 237 H 275 H 147 H Discharge Diet: Low fat/ Low Cholesterol Discharge Activity: Return to Normal Activity, - - As tolerated Return to work on:: 02/25/19 May shower in (days): 1 May resume sexual activity in: No Restrictions Ice area for (Minutes): 2 Weight Bearing Status: Weight bearing as tolerated Call your doctor if your incision/area has: Continuous Slow Oozing, Increased Pain/ Swelling, Increased Redness, Foul Smelling Discharge, Swelling at the incision site Call your doctor if you observe: Fever of 101 or Higher, Coldness, Increased Pain, Numbness or Tingling, Inability to have a bowel movement, Calf discomfort, Uncontrolled pain Suture Line Care: Avoid Pulling/Pushing, Avoid Pinching/Bending Change Dressing in (Days):: 1 Remove Dressing in (days):: 1 Cleanse incision/area with: Soap & Water Home Medications: Medications to take at Discharge Levothyroxine [Synthroid] 137 mcg PO DAILY 10/13/13 Potassium Chloride [Klor-Con 10] 20 meq PO TID 10/13/13 Nitroglycerin [Nitrostat] 0.4 mg SUBLINGUAL Q5M PRN 12/21/13 ergocalciferol (vitamin D2) 50,000 unit capsule 50,000 unit PO QMONTH 11/18/17 atorvastatin 20 mg tablet 40 mg PO QHS tab 11/24/17 Glipizide/Metformin HCl [Glipizide-Metformin 2.5-500 mg] 2 ea PO BID 03/31/18 insulin glargine (U-300) conc. 300 unit/mL (3 mL) subcutaneous pen 27 unit SC QDAY ml 04/08/18 Metoprolol(XL)Succ [Toprol Xl (Beta Antwon)] 50 mg PO DAILY 04/22/18 Aspirin [Aspirin, Baby] 81 mg PO DAILY@0800 07/30/18 isosorbide mononitrate ER 30 mg tablet,extended release 24 hr 30 mg PO QAM #90 tab 11/03/18 Furosemide 40 mg PO DAILY 11/13/18 Hydrocodone/Acetaminophen [Hydrocodone-Acetamin 5-325 mg] 0.5 tab PO BID PRN 11/13/18 MethylPREDNISolone DosePak [Medrol DosePak] 4 mg PO UD #1 box 11/14/18 Following Prescrptions Were Given to Patient: MethylPREDNISolone DosePak [Medrol DosePak] 4 mg PO UD #1 box Primary Care Physician: Brian Dergoot Chi, MD [Primary Care Provider] - Please follow up with your Primary Care Physician in: one week Please Follow Up With: Priyanka Mccartney MD When: 2 weeks Please Follow Up With: Priyanka Mccartney MD Patient Instructions: Self-Care for Low Back Pain Disposition: Home Minutes spent on discharge:: 40 Patient Condition:: Stable Medical Necessity - Tobacco Use Smoking Status: Former smoker Tobacco Use: Non-smoker Meaningful Use Info Meaningful Use Diagnoses (Choose all that apply): None applicable Code Visit Inpatient E&M: 21825 Disch Hosp
== END 2018-11-14 14:30 | disposition home or self-care (01) ==
LOC: ED 03:40 → MS3 06:31
PROVIDERS: Anesthesiology; Admitting Provider Family Medicine; Emergency Provider Emergency Medicine; Family Provider Family Medicine Geriatric Medicine; PCP Family Medicine Geriatric Medicine; Visit Provider Student in an Organized Health Care Education/Training Program
PROC: 3E0S3BZ Introduction of Anesthetic Agent into Epidural Space, Percutaneous Approach (ICD-10-PCS; CPT 62322; principal; 2018-11-13 13:55)
DX: M35.3 Polymyalgia rheumatica (principal); M48.061 Spinal stenosis, lumbar region without neurogenic claudication; M54.16 Radiculopathy, lumbar region; E11.9 Type 2 diabetes mellitus without complications; I25.2 Old myocardial infarction; I25.10 Atherosclerotic heart disease of native coronary artery without angina pectoris; E78.5 Hyperlipidemia, unspecified; I10 Essential (primary) hypertension; E87.6 Hypokalemia; G89.29 Other chronic pain; Z79.899 Other long term (current) drug therapy; Z95.1 Presence of aortocoronary bypass graft; Z79.82 Long term (current) use of aspirin; Z79.84 Long term (current) use of oral hypoglycemic drugs; Z86.73 Personal history of transient ischemic attack (TIA), and cerebral infarction without residual deficits; Z87.891 Personal history of nicotine dependence; M06.9 Rheumatoid arthritis, unspecified
CPT/HCPCS: 01936; 64483; 64484; 36415; 72100; 80048; 82962; 83735; 85025; 85652; 86140; 93971; 96361; 96374; 96375; 97116; 97162; 97166; 97530; 97802; 99218; 99285; J7030; J7120; A4216; G0378; J2405

== ENCOUNTER → 2018-12-02 12:10 | Outpatient (CLI) | payer MEDICARE, SELFPAY ==
[2018-11-13 12:09] VITALS: BMI 27.6
--- NOTE | 2018-12-02 12:15 | VDLE_ITS ---
Reason For Study: EDEMA RIGHT LEFT CFV is compressible, spontaneous, phasic, GSV is normal. competent and demonstrates normal CFV is compressible, spontaneous, phasic, augmentation. competent, and demonstrates normal FV is compressible, spontaneous, phasic, augmentation. competent and demonstrates normal FV is compressible, spontaneous, phasic, augmentation. competent and demonstrates normal POP V is compressible, spontaneous, phasic, augmentation. competent and demonstrates normal POP V is compressible, spontaneous, phasic, augmentation. competent and demonstrates normal T/P Trunk is compressible. augmentation. PTV is compressible. T/P Trunk is compressible. RT PerV is compressible. PTV is compressible. 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 LT PerV is compressible. Procedure Exam performed in department. A preliminary report was called and/or faxed to Dr Degroot. Interpretation Summary No evidence for acute deep venous thrombosis bilateral lower extremities with harvested right great saphenous vein and patent and compressible left great saphenous vein Ordering Physician: Brian Degroot Referring Physician: Brian Degroot Chi Performed By: Saira Grayson, RDCS, RVT
== END ==
PROVIDERS: Family Provider Family Medicine Geriatric Medicine; PCP Family Medicine Geriatric Medicine; Referring Provider Family Medicine Geriatric Medicine; Visit Provider Family Medicine Geriatric Medicine
DX: R60.0 Localized edema (principal)
CPT/HCPCS: 93970

== ENCOUNTER → 2019-01-20 15:14 | Outpatient (CLI) | payer MEDICARE, SELFPAY ==
[2018-12-08 11:32] VITALS: BMI 27.4
[2019-01-20 17:35] LABS: Absolute Neutrophil Count 6.8 X10^3/uL (2.0-7.7); Basophil# 0.07 X10^3/uL; Basophil% 0.6 % (0-1); Eosinophil# 0.19 X10^3/uL; Eosinophils% 1.7 % (0-5); Hematocrit 30.6 % (37-47); Hemoglobin 9.5 g/dl (12.0-15.0); Lymphocyte % 28.9 % (19-41); Mean Corpuscular Hgb 25.7 pg (27.0-32.0); Mean Corpuscular Volume 82.9 fL (81-99); Monocyte% 7.2 % (0-10); Neutrophil # 6.75 X10^3/uL (2.7-7.7); Platelet Count 389 K/mm3 (150-450); RBC Distribution Width CV 15.1 % (11.6-14.6); RBC Distribution Width SD 46.1 fl (35.1-43.9); Red Blood Count 3.69 M/mm3 (4.2-5.4); White Blood Count 11.1 K/mm3 (4.4-11.0)
[2019-01-20 17:51] LABS: POSITIVE COUNT NO; POSITIVE DIFFERENTIAL NO; POSITIVE MORPHOLOGY NO
[2019-01-20 18:02] LABS: ALB/GLOB Ratio 0.9 RATIO (0.9-2.4); AST(SGOT) 9 U/L (15-37); Alanine Aminotransfer ALT/SGPT 16 U/L (13-56); Albumin, Serum 3.1 g/dL (3.2-5.0); Alkaline Phosphatase 67 U/L (45-117); Anion Gap 8 (5-15); BUN 24 mg/dL (7-18); BUN/Creat Ratio 21.1 RATIO (10-20); CRP 3.91 mg/L (0.0-3.0); Chloride 105 mmol/L (98-107); Creatinine, Serum 1.14 mg/dL (0.55-1.02); EST Glomerular Filtration Rate 49 mL/min (>60); Est Glom Filt Rate - Afr Amer 59 mL/min (>60); Globulin 3.3 g/dL (2.2-4.2); Glucose 319 mg/dL (74-106); Potassium 4.2 mmol/L (3.5-5.1); Protein, Total 6.4 g/dL (6.4-8.2); Rheumatoid Factor < 10.0 IU/mL (<15); Sodium Level 139 mmol/L (136-145)
[2019-01-20 18:09] LABS: Erythrocyte Sedimentation Rate 45 mm/hr (0-30)
[2019-01-22 13:00] LABS: ANTINUCLEAR ANTIBODIES DIRECT Negative (Negative)
[2019-01-23 15:08] LABS: CCP IgG Antibodies 8 units (0-19); HEPATITIS B SURFACE AG Negative (Negative); Hep B Surface Antibodies Non Reactive (.); Hep C Antibodies <0.1 s/co ratio (0.0-0.9)
== END ==
PROVIDERS: Family Provider Family Medicine Geriatric Medicine; PCP Family Medicine Geriatric Medicine; Referring Provider Internal Medicine Rheumatology; Visit Provider Internal Medicine Rheumatology
DX: M06.4 Inflammatory polyarthropathy (principal); M15.9 Polyosteoarthritis, unspecified; M48.062 Spinal stenosis, lumbar region with neurogenic claudication
CPT/HCPCS: 36415; 80053; 85025; 85652; 86038; 86140; 86200; 86431; 86706; 86803; 87340

== ENCOUNTER 2019-02-01 12:56 | Inpatient (IN) | payer MEDICARE, SELFPAY ==
[2018-12-08 11:32] VITALS: BMI 27.4
[2019-02-01] VITALS (14 sets, daily range): BP systolic 146–185; BP diastolic 58–103; PULSE 78–106; RESP 18–27; TEMP 36.4–36.7; O2SAT 96–99; BMI 28.8; BMI 27.9
--- NOTE | 2019-02-01 13:12 | RAD_ITS ---
STUDY: X-RAY CHEST REASON FOR EXAM: Female, 83 years old. Chest pain starting yesterday TECHNIQUE: Single AP portable view of the chest. COMPARISON: 07/30/2018 FINDINGS: The lungs are clear and expanded. There is no demonstrated pleural abnormality. There is mild cardiac enlargement. Sternal wires are noted. Normal mediastinum and norma. Normal visualized pulmonary arteries. Normal visualized aortic arch and descending thoracic aorta. Normal visualized thoracic spine. Prior right-sided rib fractures with healing There is no demonstrated abnormality of the visualized soft tissue structures of the upper abdomen. RAD/Chest 1 View (Portable) IMPRESSION: No acute findings Electronically Signed: Sulaiman Braswell DO at 13:45 EDT Tel , Service support ,
--- NOTE | 2019-02-01 13:12 | EKG12_ITS ---
Test Reason : AM Blood Pressure : / mmHG Vent. Rate : 088 BPM Atrial Rate : 088 BPM P-R Int : 130 ms QRS Dur : 098 ms QT Int : 384 ms P-R-T Axes : 028 -25 068 degrees QTc Int : 464 ms Sinus rhythm with PSVC's Incomplete right bundle branch block Inferior infarct , age undetermined , cannot be excluded Abnormal ECG Confirmed by BEST CORONA, JOON ([id number]), graphics editor SAMIA NATH ([id number]) on 02/03/2019 1:50:59 PM Referred By: Confirmed By:JOON JEWELL MD
--- NOTE | 2019-02-01 13:30 | ED.VISSUMM ---
- ER Visit Summary Date of Service: 02/01/19 Chief Complaint: [] Chest pain yesterday and again today history of CABG 7 stents History of Present Illness: The patient is a 83 F [] history as above in addition she says she has history of legionnaires pneumonia that causes intermittent swelling of her extremities, she indicates yesterday she had having anginal type chest pain she took nitroglycerin it went away, today she had a recurrence of her anginal type chest pain when I believe she was doing dishes not exerting herself she again took nitroglycerin and it improved, she has some swelling of her left upper extremity 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 maki Physical Examination: [] Vital signs within normal range General, no distress resting comfortably HEENT is generally unremarkable The neck is supple no adenopathy Cardiovascular, regular rate and rhythm Lungs, clear bilateral Abdomen, soft nontender Extremities, left upper extremity shows edema to the hand full range of motion there is no signs of trauma, full range of motion of the digits neurovascular function intact, she has right greater than left lower extremity edema that she states has been chronic unchanged there is no warmth signs of trauma She indicates she is had extensive prior work-up for DVT and she never had a DVT Neurologic, awake alert answering questions appropriately moving all 4 extremities Test Results: [] Emergency Department Course and Treatment: [] She is EKG shows a sinus rhythm there is no acute injury pattern appreciated, at this time screening labs troponin chest x-ray the patient remains pain-free at this time will discuss with cardiology Treatment Plan: [] Patient screening labs EKG chest x-ray unremarkable given her history significant CAD will arrange for admission spoke with the hospitalist the by see her shortly for admission Disposition: [] Admit stable Impression: [] Chest pain unstable angina history of 7 cardiac stents CABG This note was generated with [employer] software. It may contain incorrect words, spelling, and punctuation that were not noted in review of the chart prior to signing ED Disposition - Plan for ED Patient: Referrals: Brian Degroot Chi, MD [Primary Care Provider] -
[2019-02-01 13:35] LABS: Absolute Lymphocyte Count 2.79 X10^3/ul (0.83-4.51); Absolute Neutrophil Count 6.6 X10^3/uL (2.0-7.7); Basophil# 0.05 X10^3/uL; Basophil% 0.5 % (0-1); Eosinophil# 0.11 X10^3/uL; Eosinophils% 1.1 % (0-5); Hematocrit 30.4 % (37-47); Hemoglobin 9.6 g/dl (12.0-15.0); Lymphocyte # 2.79 X10^3/ul (4.0); Lymphocyte % 26.9 % (19-41); Mean Corp Hgb Conc 31.6 g/gl (32-36); Mean Corpuscular Hgb 25.5 pg (27.0-32.0); Mean Corpuscular Volume 80.9 fL (81-99); Mean Platelet Vol. 10.3 fl (6.2-12.0); Monocyte# 0.83 X10^3/uL; Neutrophil # 6.57 X10^3/uL (2.7-7.7); Neutrophil % 63.3 % (47-70); Platelet Count 394 K/mm3 (150-450); RBC Distribution Width CV 15.2 % (11.6-14.6); RBC Distribution Width SD 44.6 fl (35.1-43.9); Red Blood Count 3.76 M/mm3 (4.2-5.4); White Blood Count 10.4 K/mm3 (4.4-11.0)
[2019-02-01 13:36] LABS: POSITIVE COUNT NO; POSITIVE DIFFERENTIAL NO; POSITIVE MORPHOLOGY NO
[2019-02-01 13:40] LABS: Anion Gap 5 (5-15); BUN 20 mg/dL (7-18); BUN/Creat Ratio 22.9 RATIO (10-20); Calcium,Total 9.1 mg/dL (8.5-10.1); Chloride 106 mmol/L (98-107); Creatinine, Serum 0.88 mg/dL (0.55-1.02); EST Glomerular Filtration Rate 66 mL/min (>60); Est Glom Filt Rate - Afr Amer 80 mL/min (>60); Glucose 258 mg/dL (74-106); Potassium 3.7 mmol/L (3.5-5.1); Sodium Level 135 mmol/L (136-145)
[2019-02-01 13:51] LABS: International Normalized Ratio 0.9; Prothrombin Time (Protime)PT. 12.2 SECONDS (11.7-14.9)
--- NOTE | 2019-02-01 15:29 | ED.RN ---
MOM AT BEDSIDE, PT AND MOM YELLING AT ONE ANOTHER. HRO AT BEDSIDE.
--- NOTE | 2019-02-01 16:14 | PCM.HP.STD ---
Problem List (1) Atypical chest pain Status: Acute (2) Lower extremity edema Status: Acute (3) DDD (degenerative disc disease), lumbar Status: Chronic (4) Right lumbar radiculitis Status: Chronic (5) Segmental and somatic dysfunction of pelvic region Status: Chronic (6) Segmental and somatic dysfunction of lumbar region Status: Chronic (7) Diabetes mellitus, type II Status: Chronic Qualifiers: (8) Obesity (BMI 30.0-34.9) Status: Chronic (9) Intractable back pain Status: Acute (10) Radiculopathy Status: Chronic Qualifiers: (11) Acute right lumbar radiculopathy Status: Chronic (12) Acute right lumbar radiculopathy Status: Acute (13) 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 (14) 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 (15) Lightheaded Status: Chronic (16) Constipation Status: Chronic (17) Legionella pneumonia Status: Resolved (18) GI bleed Status: Chronic Qualifiers: (19) 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 myocardial infarction Status: Chronic (20) Atherosclerosis of coronary 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 Status: Chronic Comment: CNK-MJZ-Reze-Mid OM1 w/ 2.25 x 12 mm Promus Premier 12/30/2013 AHZ-MZC-YXT-Prox-Mid OM2 w/ 3.0 x 23 mm Promus Stent 03/05/2010 FGF-LRN-KZE-OM2 w/ Taxus Stent 04/2006 CABG x 3 SVG to D1, SVG-OM & SVG-RCA (21) History of coronary artery stent placement Status: Chronic Comment: YMT-QER-Aowo-Mid OM1 w/ 2.25 x 12 mm Promus Premier 12/30/2013 QIM-UDL-DBN-Prox-Mid OM2 w/ 3.0 x 23 mm Promus Stent 03/05/2010 MRD-IPZ-XRO-OM2 w/ Taxus Stent 04/2006 (22) H/O coronary artery bypass surgery Status: Chronic Comment: CABG x 3 SVG to D1, SVG-OM & SVG-RCA (23) SVT (supraventricular tachycardia) Status: Chronic (24) Sepsis Status: Resolved (25) HLD (hyperlipidemia) Status: Chronic Qualifiers: (26) TIA (transient ischemic attack) Status: Chronic Qualifiers: (27) Carotid bruit Status: Chronic (28) Hypertension Status: Chronic Qualifiers: History of Present Illness Date of Admission: 02/01/19 Chief Complaint: Chest pain The patient is a 83 year old F with history of coronary artery disease status post three-vessel CABG and 7 stent last AL/stent about 5 years ago came to ED with chest pain, twice since yesterday. Patient felt chest pressure/heaviness, localized while doing yard work/weeding out yesterday and lasted for about 15 minutes. She had similar event today. This was not associated with shortness of breath, dizziness, lightheadedness, diaphoresis or syncope. She also has bilateral lower extremity edema which she states on and off and is on Lasix 40 mg daily and KCl. He also has left hand edema and unable to make complete fist. She has appointment with specimen processor tomorrow and she had already missed twice. In ED, her blood pressure was high. 172/80, 185/101. Heart rate in 90s and 80s. No hypoxia. EKG reported as sinus tachycardia with occasional PVCs. QTc 479 ms chest x-ray reported no acute findings. Past Medical History Past Medical History (Chronic Problems): Chronic Problems (Last Reviewed 12/21/18 @ 10:34 by Ana Dupont) DDD (degenerative disc disease), lumbar (Chronic) Right lumbar radiculitis (Chronic) Segmental and somatic dysfunction of pelvic region (Chronic) Segmental and somatic dysfunction of lumbar region (Chronic) Diabetes mellitus, type II (Chronic) Obesity (BMI 30.0-34.9) (Chronic) Radiculopathy (Chronic) Acute right lumbar radiculopathy (Chronic) 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) Lightheaded (Chronic) Constipation (Chronic) GI bleed (Chronic) 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) HRE-HIE-Gzml-Mid OM1 w/ 2.25 x 12 mm Promus Premier 12/30/2013 XPE-BWH-KXV-Prox-Mid OM2 w/ 3.0 x 23 mm Promus Stent 03/05/2010 OBD-VGN-VKA-OM2 w/ Taxus Stent 04/2006 CABG x 3 SVG to D1, SVG-OM & SVG-RCA History of coronary artery stent placement (Chronic 12/30/13) CPQ-RZV-Vqci-Mid OM1 w/ 2.25 x 12 mm Promus Premier 12/30/2013 UWM-XPZ-ZZI-Prox-Mid OM2 w/ 3.0 x 23 mm Promus Stent 03/05/2010 PTJ-RDH-QCN-OM2 w/ Taxus Stent 04/2006 H/O coronary artery bypass surgery (Chronic 09/08/92) CABG x 3 SVG to D1, SVG-OM & SVG-RCA SVT (supraventricular tachycardia) (Chronic) HLD (hyperlipidemia) (Chronic) TIA (transient ischemic attack) (Chronic) Carotid bruit (Chronic) Hypertension (Chronic) Medical History: Medical History (Last Reviewed 12/21/18 @ 10:34 by Ana Dupont) GI bleed (Chronic) K92.2 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 myocardial infarction (Chronic) I25.2 Atherosclerosis of coronary 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 (Chronic) I25.810 DIM-LIH-Qzcq-Mid OM1 w/ 2.25 x 12 mm Promus Premier 12/30/2013 RDL-ZNQ-VBH-Prox-Mid OM2 w/ 3.0 x 23 mm Promus Stent 03/05/2010 NHR-NSN-RNS-OM2 w/ Taxus Stent 04/2006 CABG x 3 SVG to D1, SVG-OM & SVG-RCA SVT (supraventricular tachycardia) (Acute) I47.1 Sepsis (Acute) A41.9 HLD (hyperlipidemia) (Chronic) E78.5 TIA (transient ischemic attack) (Chronic) G45.9 Carotid bruit (Chronic) R09.89 Hypertension (Chronic) I10 Acute esophagitis K20.9 Blood in stool K92.1 Type 2 diabetes mellitus without complications E11.9 Pneumonia J18.9 Abnormal finding on cardiovascular stress test (Inactive) R94.39 Allergies No Known Allergies Allergy (Verified 11/13/18 03:25) Home Medications: Ambulatory Orders Medication Instructions Recorded Levothyroxine [Synthroid] 137 mcg PO DAILY 10/13/13 Potassium Chloride [Klor-Con 10] 20 meq PO TID 10/13/13 Nitroglycerin (INPATIENT USE) 0.4 mg SUBLINGUAL Q5M PRN 12/21/13 [Nitrostat] ergocalciferol (vitamin D2) 50,000 50,000 unit PO QMONTH 11/18/17 unit capsule atorvastatin 20 mg tablet 40 mg PO QHS tab 11/24/17 Glipizide/Metformin HCl 2 ea PO BID 03/31/18 [Glipizide-Metformin 2.5-500 mg] insulin glargine (U-300) conc. 300 27 unit SC QDAY ml 04/08/18 unit/mL (3 mL) subcutaneous pen Aspirin [Aspirin, Baby] 81 mg PO DAILY@0800 07/30/18 isosorbide mononitrate ER 30 mg 30 mg PO QAM #90 tab 11/03/18 tablet,extended release 24 hr Furosemide 40 mg PO DAILY 11/13/18 Hydrocodone/Acetaminophen 0.5 tab PO BID PRN 11/13/18 [Hydrocodone-Acetamin 5-325 mg] metoprolol succinate ER 50 mg 50 mg PO DAILY #90 tab 11/17/18 tablet,extended release 24 hr Surgical History: Surgical History (Last Reviewed 12/21/18 @ 10:34 by Ana Dupont) History of coronary artery stent placement (Chronic) Onset Date: 12/30/13 Z95.5 FXL-YAO-Nwab-Mid OM1 w/ 2.25 x 12 mm Promus Premier 12/30/2013 XJQ-XFQ-UWY-Prox-Mid OM2 w/ 3.0 x 23 mm Promus Stent 03/05/2010 TMQ-AEL-IVI-OM2 w/ Taxus Stent 04/2006 H/O coronary artery bypass surgery (Chronic) Onset Date: 09/08/92 Z95.1 CABG x 3 SVG to D1, SVG-OM & SVG-RCA History bilateral cataract surgery History of esophagogastroduodenoscopy (EGD) Onset Date: ~04/24/18 Z98.890 History of esophagogastroduodenoscopy (EGD) Onset Date: ~06/23/18 Z98.890 History of hemorrhoidectomy Z98.890 History of laparoscopic cholecystectomy Z90.49 S/P colonoscopy Onset Date: ~04/24/18 Z98.890 Surgical History: appendectomy, cholecystectomy, coronary bypass surgery, hysterectomy, - - Appendectomy, cholecystectomy, CABG x 3, PCI x 3, hysterectomy. Psychiatric History: No pertinent psych hx [employer] History: No pertinent [employer] history Smoking Status: Former smoker - *Family History Maternal Family History: Family History (Last Reviewed 12/21/18 @ 10:34 by Ana Dupont) Mother Colon cancer Mother Heart disease History Items: Heart Disease Paternal Family History: Family History (Last Reviewed 12/21/18 @ 10:34 by Ana Dupont) Mother Colon cancer Mother Heart disease History Items: - - No marked paternal history of HD, CA, DM. Review of Systems Constitutional: Denies: Chills, Fever, Weight Change HEENT: Denies: Head Aches, Sinus Congestion, Sinus Drainage Cardiovascular: Denies: Chest Pain, Palpitations Respiratory: Denies: Cough, Shortness of breath at rest, Sputum production Gastrointestinal: Denies: Abdominal Pain, Nausea, Vomiting Genitourinary: Denies: Dysuria, Frequency, Hematuria, Urgency Musculoskeletal: Reports: Joint Pain, Joint stiffness, Joint Tenderness Skin: Denies: Rash, Wounds Neurological: Reports: Balance problems. Denies: Focal weakness, Numbness, Tingling Psychiatric: Denies: Anxiety, Depression, Homicidal Ideations, Suicidal Ideations Hematologic/ Lymphatic: Denies: Easy Bruising, Easy Bleeding VTE Information - Inpt Only VTE Present on Admission: No VTE Mechan Device Prophylaxis: None VTE Pharm Prophylaxis ordered?: Yes Patient Problems: Active and Suspected Problems (Last Reviewed 12/21/18 @ 10:34 by Ana Dupont) Atypical chest pain (Acute) Lower extremity edema (Acute) - Physical Exam General: Alert, Oriented x3, Cooperative HEENT: Atraumatic, PERRLA, EOMI, Normocephalic Neck: Supple, No JVD, Negative Carotid Bruits Lungs: Clear to auscultation, No rhonchi, No wheeze, No rales, Diminished Cardiovascular: Regular rate, No murmurs Abdomen: Bowel Sounds Present, Soft, Non Tender, Non-Distended Extremities: Capillary Refill Less than 3 Seconds, Edema - Bilateral lower extremity pitting edema below knee, 3+ Edema of left HAND and unable to make a fist. Skin: No rashes, No breakdown Musculoskeletal: No Tenderness to Palpation of Joints or Extremities, Arthritic Changes Lymphatic: No Cervical, Supraclavicular, or Inguinal Adenopathy Neurological: Cranial nerves II-XII grossly intact, Deep Tendon Reflexes 2+/4 and Symmetrical, Neuro grossly intact Psych/Mental Status: Normal Affect, Appropriate Vital Signs Temp Pulse Resp BP Pulse Ox 98.1 F 92 27 H 185/101 H 97 02/01/19 13:03 02/01/19 15:13 02/01/19 15:13 02/01/19 15:56 02/01/19 15:13 Oxygen Delivery Method Room Air Weight: 167 lb 15.876 oz Body Mass Index (BMI) 28.8 Laboratory Tests Past 24 Hrs 02/01/19 02/01/19 02/01/19 13:15 13:15 13:15 WBC 10.4 RBC 3.76 L Hgb 9.6 L Hct 30.4 L MCV 80.9 L MCH 25.5 L MCHC 31.6 L RDW 15.2 H RDW Differential 44.6 H Plt Count 394 MPV 10.3 Immature Gran % (Auto) 0.200 Neut % (Auto) 63.3 Lymph % (Auto) 26.9 [place] % (Auto) 8.0 Eos % (Auto) 1.1 Baso % (Auto) 0.5 Absolute Neuts (auto) 6.6 Absolute Lymphs (auto) 2.79 Total Counted Not Reportable PT 12.2 INR 0.9 Sodium 135 L Potassium 3.7 Chloride 106 Carbon Dioxide 24.0 Anion Gap 5 BUN 20 H Creatinine 0.88 Estim Creat Clear Calc 43.30 Est GFR (MDRD) Af Amer 80 Est GFR (MDRD) Non-Af 66 BUN/Creatinine Ratio 22.9 H Glucose 258 H Calcium 9.1 Troponin I 0.019 Assessment/Plan All Active Problems (Last Reviewed 12/21/18 @ 10:34 by Ana Dupont) Atypical chest pain (Acute) Lower extremity edema (Acute) Intractable back pain (Acute) Acute right lumbar radiculopathy (Acute) Legionella pneumonia (Resolved) Sepsis (Resolved) Pneumonia (Resolved) The patient is a 83 year old F with history of coronary artery disease status post three-vessel CABG and 7 stent last AL/stent about 5 years ago came to ED with chest pain, twice since yesterday. Patient felt chest pressure/heaviness, localized while doing yard work/weeding out yesterday and lasted for about 15 minutes. She had similar event today. This was not associated with shortness of breath, dizziness, lightheadedness, diaphoresis or syncope. She also has bilateral lower extremity edema which she states on and off and is on Lasix 40 mg daily and KCl. He also has left hand edema and unable to make complete fist. She has appointment with specimen processor tomorrow and she had already missed twice. In ED, her blood pressure was high. 172/80, 185/101. Heart rate in 90s and 80s. No hypoxia. EKG reported as sinus tachycardia with occasional PVCs. QTc 479 ms chest x-ray reported no acute findings. 1. Atypical chest pain with suspicion of angina: Patient is being admitted in PCU. On ACS protocol with serial cardiac enzymes. Repeat EKG. If troponins are negative, pharmacological nuclear stress test tomorrow morning. Patient had last stress test in October 2014 which was negative with EF 69%. 2. Carotid artery disease status post triple bypass and multiple stents: Continue home cardiac medications. Patient is on aspirin, isosorbide mononitrate, metoprolol and Lasix. 3. Possible heart failure, exact type and etiology unclear possible ischemic cardiomyopathy: There is no previous echo. The echo is ordered. As mentioned above. Monitor intake and output. Titrate dose of Lasix and monitor electrolytes. 5. Other cardiac conditions: Arrhythmia, SVT and hypertension: Blood pressure is high. Started on losartan 50 mg daily and titrate accordingly. Hydralazine 10 mg IV every 4 hourly as needed for systolic blood pressure more than 180 mmHg. On metoprolol rest as mentioned above 4. Rheumatologic disease: Patient has left hand swelling, probably secondary to edema, reactive. Follow-up with specimen processor as an outpatient. CRP and LFT ordered. 5. Diabetes mellitus type II: Patient blood sugar is not controlled. Glucose 258. Check gassiness is covered with Humalog sliding scale. On Lantus; increased to 30 units subcu daily. Other chronic comorbidities chronic anemia, history of GI bleed, chronic lumbar spinal stenosis, obesity, mild, dyslipidemia and TIA: Patient H&H is 9.6/30.4; that is on her baseline. Home medication reconciliation done. Multiple comorbidities complicates the present care and expect difficult and delay recovery DVT prophylaxis: Lovenox 40 mg subcu daily. Discontinue if platelet count drops less than 50,000 or hemoglobin less than 8 g%. Laboratory Results 02/01/19 13:15: WBC 10.4, RBC 3.76 L, Hgb 9.6 L, Hct 30.4 L, MCV 80.9 L, MCH 25.5 L, MCHC 31.6 L, RDW 15.2 H, RDW Differential 44.6 H, Plt Count 394, MPV 10.3, Immature Gran % (Auto) 0.200, Neut % (Auto) 63.3, Lymph % (Auto) 26.9, [place] % (Auto) 8.0, Eos % (Auto) 1.1, Baso % (Auto) 0.5, Absolute Neuts (auto) 6.6, Absolute Lymphs (auto) 2.79, Total Counted Not Reportable 02/01/19 13:15: PT 12.2, INR 0.9 02/01/19 13:15: Sodium 135 L, Potassium 3.7, Chloride 106, Carbon Dioxide 24.0, Anion Gap 5, BUN 20 H, Creatinine 0.88, Estim Creat Clear Calc 43.30, Est GFR (MDRD) Af Amer 80, Est GFR (MDRD) Non-Af 66, BUN/Creatinine Ratio 22.9 H, Glucose 258 H, Calcium 9.1, Troponin I 0.019 Clinical Impression(s) from Imaging Studies Chest X-Ray 02/01/19 13:12 IMPRESSION: No acute findings Code Visit OBSV E&M: 38207 Initial observation care L3
--- NOTE | 2019-02-01 16:22 | HP.PCM_ITS ---
Problem List (1) Atypical chest pain Status: Acute (2) Lower extremity edema Status: Acute (3) DDD (degenerative disc disease), lumbar Status: Chronic (4) Right lumbar radiculitis Status: Chronic (5) Segmental and somatic dysfunction of pelvic region Status: Chronic (6) Segmental and somatic dysfunction of lumbar region Status: Chronic (7) Diabetes mellitus, type II Status: Chronic Qualifiers: (8) Obesity (BMI 30.0-34.9) Status: Chronic (9) Intractable back pain Status: Acute (10) Radiculopathy Status: Chronic Qualifiers: (11) Acute right lumbar radiculopathy Status: Chronic (12) Acute right lumbar radiculopathy Status: Acute (13) 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 (14) 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 (15) Lightheaded Status: Chronic (16) Constipation Status: Chronic (17) Legionella pneumonia Status: Resolved (18) GI bleed Status: Chronic Qualifiers: (19) 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 myocardial infarction Status: Chronic (20) Atherosclerosis of coronary 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 Status: Chronic Comment: SNN-VEE-Aopp-Mid OM1 w/ 2.25 x 12 mm Promus Premier 12/30/2013 LMX-IME-UOJ-Prox-Mid OM2 w/ 3.0 x 23 mm Promus Stent 03/05/2010 APM-VEC-LBQ-OM2 w/ Taxus Stent 04/2006 CABG x 3 SVG to D1, SVG-OM & SVG-RCA (21) History of coronary artery stent placement Status: Chronic Comment: PMS-CER-Rswt-Mid OM1 w/ 2.25 x 12 mm Promus Premier 12/30/2013 LHO-EYG-FSG-Prox-Mid OM2 w/ 3.0 x 23 mm Promus Stent 03/05/2010 RIL-HAH-OZY-OM2 w/ Taxus Stent 04/2006 (22) H/O coronary artery bypass surgery Status: Chronic Comment: CABG x 3 SVG to D1, SVG-OM & SVG-RCA (23) SVT (supraventricular tachycardia) Status: Chronic (24) Sepsis Status: Resolved (25) HLD (hyperlipidemia) Status: Chronic Qualifiers: (26) TIA (transient ischemic attack) Status: Chronic Qualifiers: (27) Carotid bruit Status: Chronic (28) Hypertension Status: Chronic Qualifiers: History of Present Illness Date of Admission: 02/01/19 Chief Complaint: Chest pain The patient is a 83 year old F with history of coronary artery disease status post three-vessel CABG and 7 stent last MD/stent about 5 years ago came to ED with chest pain, twice since yesterday. Patient felt chest pressure/heaviness, localized while doing yard work/weeding out yesterday and lasted for about 15 minutes. She had similar event today. This was not associated with shortness of breath, dizziness, lightheadedness, diaphoresis or syncope. She also has bilateral lower extremity edema which she states on and off and is on Lasix 40 mg daily and KCl. He also has left hand edema and unable to make complete fist. She has appointment with repair armature winder helper tomorrow and she had already missed twice. In ED, her blood pressure was high. 172/80, 185/101. Heart rate in 90s and 80s. No hypoxia. EKG reported as sinus tachycardia with occasional PVCs. QTc 479 ms chest x-ray reported no acute findings. Past Medical History Past Medical History (Chronic Problems): Chronic Problems (Last Reviewed 12/21/18 @ 10:34 by Ana Dupont) DDD (degenerative disc disease), lumbar (Chronic) Right lumbar radiculitis (Chronic) Segmental and somatic dysfunction of pelvic region (Chronic) Segmental and somatic dysfunction of lumbar region (Chronic) Diabetes mellitus, type II (Chronic) Obesity (BMI 30.0-34.9) (Chronic) Radiculopathy (Chronic) Acute right lumbar radiculopathy (Chronic) 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) Lightheaded (Chronic) Constipation (Chronic) GI bleed (Chronic) 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) REW-KXN-Gppc-Mid OM1 w/ 2.25 x 12 mm Promus Premier 12/30/2013 LRV-IBC-HSL-Prox-Mid OM2 w/ 3.0 x 23 mm Promus Stent 03/05/2010 VPS-PYE-BBO-OM2 w/ Taxus Stent 04/2006 CABG x 3 SVG to D1, SVG-OM & SVG-RCA History of coronary artery stent placement (Chronic 12/30/13) SQM-DAB-Ooum-Mid OM1 w/ 2.25 x 12 mm Promus Premier 12/30/2013 WXZ-BOF-NQO-Prox-Mid OM2 w/ 3.0 x 23 mm Promus Stent 03/05/2010 THG-DOX-DWA-OM2 w/ Taxus Stent 04/2006 H/O coronary artery bypass surgery (Chronic 09/08/92) CABG x 3 SVG to D1, SVG-OM & SVG-RCA SVT (supraventricular tachycardia) (Chronic) HLD (hyperlipidemia) (Chronic) TIA (transient ischemic attack) (Chronic) Carotid bruit (Chronic) Hypertension (Chronic) Medical History: Medical History (Last Reviewed 12/21/18 @ 10:34 by Ana Dupont) GI bleed (Chronic) K92.2 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 myocardial infarction (Chronic) I25.2 Atherosclerosis of coronary 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 (Chronic) I25.810 AJC-OPB-Iace-Mid OM1 w/ 2.25 x 12 mm Promus Premier 12/30/2013 TRV-WUB-NMF-Prox-Mid OM2 w/ 3.0 x 23 mm Promus Stent 03/05/2010 VUU-GNB-KEG-OM2 w/ Taxus Stent 04/2006 CABG x 3 SVG to D1, SVG-OM & SVG-RCA SVT (supraventricular tachycardia) (Acute) I47.1 Sepsis (Acute) A41.9 HLD (hyperlipidemia) (Chronic) E78.5 TIA (transient ischemic attack) (Chronic) G45.9 Carotid bruit (Chronic) R09.89 Hypertension (Chronic) I10 Acute esophagitis K20.9 Blood in stool K92.1 Type 2 diabetes mellitus without complications E11.9 Pneumonia J18.9 Abnormal finding on cardiovascular stress test (Inactive) R94.39 Allergies No Known Allergies Allergy (Verified 11/13/18 03:25) Home Medications: Ambulatory Orders Medication Instructions Recorded Levothyroxine [Synthroid] 137 mcg PO DAILY 10/13/13 Potassium Chloride [Klor-Con 10] 20 meq PO TID 10/13/13 Nitroglycerin (INPATIENT USE) 0.4 mg SUBLINGUAL Q5M PRN 12/21/13 [Nitrostat] ergocalciferol (vitamin D2) 50,000 50,000 unit PO QMONTH 11/18/17 unit capsule atorvastatin 20 mg tablet 40 mg PO QHS tab 11/24/17 Glipizide/Metformin HCl 2 ea PO BID 03/31/18 [Glipizide-Metformin 2.5-500 mg] insulin glargine (U-300) conc. 300 27 unit SC QDAY ml 04/08/18 unit/mL (3 mL) subcutaneous pen Aspirin [Aspirin, Baby] 81 mg PO DAILY@0800 07/30/18 isosorbide mononitrate ER 30 mg 30 mg PO QAM #90 tab 11/03/18 tablet,extended release 24 hr Furosemide 40 mg PO DAILY 11/13/18 Hydrocodone/Acetaminophen 0.5 tab PO BID PRN 11/13/18 [Hydrocodone-Acetamin 5-325 mg] metoprolol succinate ER 50 mg 50 mg PO DAILY #90 tab 11/17/18 tablet,extended release 24 hr Surgical History: Surgical History (Last Reviewed 12/21/18 @ 10:34 by Ana Dupont) History of coronary artery stent placement (Chronic) Onset Date: 12/30/13 Z95.5 PSJ-QMC-Pxfh-Mid OM1 w/ 2.25 x 12 mm Promus Premier 12/30/2013 MUL-CNM-IQM-Prox-Mid OM2 w/ 3.0 x 23 mm Promus Stent 03/05/2010 QYU-UAT-UYA-OM2 w/ Taxus Stent 04/2006 H/O coronary artery bypass surgery (Chronic) Onset Date: 09/08/92 Z95.1 CABG x 3 SVG to D1, SVG-OM & SVG-RCA History bilateral cataract surgery History of esophagogastroduodenoscopy (EGD) Onset Date: ~04/24/18 Z98.890 History of esophagogastroduodenoscopy (EGD) Onset Date: ~06/23/18 Z98.890 History of hemorrhoidectomy Z98.890 History of laparoscopic cholecystectomy Z90.49 S/P colonoscopy Onset Date: ~04/24/18 Z98.890 Surgical History: appendectomy, cholecystectomy, coronary bypass surgery, hysterectomy, - - Appendectomy, cholecystectomy, CABG x 3, PCI x 3, hyster ectomy. 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 Review of Systems Constitutional: Denies: Chills, Fever, Weight Change HEENT: Denies: Head Aches, Sinus Congestion, Sinus Drainage Cardiovascular: Denies: Chest Pain, Palpitations Respiratory: Denies: Cough, Shortness of breath at rest, Sputum production Gastrointestinal: Denies: Abdominal Pain, Nausea, Vomiting Genitourinary: Denies: Dysuria, Frequency, Hematuria, Urgency Musculoskeletal: Reports: Joint Pain, Joint stiffness, Joint Tenderness Skin: Denies: Rash, Wounds Neurological: Reports: Balance problems. Denies: Focal weakness, Numbness, Tingling Psychiatric: Denies: Anxiety, Depression, Homicidal Ideations, Suicidal Ideations Hematologic/ Lymphatic: Denies: Easy Bruising, Easy Bleeding VTE Information - Inpt Only VTE Present on Admission: No VTE Mechan Device Prophylaxis: None VTE Pharm Prophylaxis ordered?: Yes Patient Problems: Active and Suspected Problems (Last Reviewed 12/21/18 @ 10:34 by Ana Dupont) Atypical chest pain (Acute) Lower extremity edema (Acute) - Physical Exam General: Alert, Oriented x3, Cooperative HEENT: Atraumatic, PERRLA, EOMI, Normocephalic Neck: Supple, No JVD, Negative Carotid Bruits Lungs: Clear to auscultation, No rhonchi, No wheeze, No rales, Diminished Cardiovascular: Regular rate, No murmurs Abdomen: Bowel Sounds Present, Soft, Non Tender, Non-Distended Extremities: Capillary Refill Less than 3 Seconds, Edema - Bilateral lower extremity pitting edema below knee, 3+ Edema of left HAND and unable to make a fist. Skin: No rashes, No breakdown Musculoskeletal: No Tenderness to Palpation of Joints or Extremities, Arthritic Changes Lymphatic: No Cervical, Supraclavicular, or Inguinal Adenopathy Neurological: Cranial nerves II-XII grossly intact, Deep Tendon Reflexes 2+/4 and Symmetrical, Neuro grossly intact Psych/Mental Status: Normal Affect, Appropriate Vital Signs Temp Pulse Resp BP Pulse Ox 98.1 F 92 27 H 185/101 H 97 02/01/19 13:03 02/01/19 15:13 02/01/19 15:13 02/01/19 15:56 02/01/19 15:13 Oxygen Delivery Method Room Air Weight: 167 lb 15.876 oz Body Mass Index (BMI) 28.8 Laboratory Tests Past 24 Hrs 02/01/19 02/01/19 02/01/19 13:15 13:15 13:15 WBC 10.4 RBC 3.76 L Hgb 9.6 L Hct 30.4 L MCV 80.9 L MCH 25.5 L MCHC 31.6 L RDW 15.2 H RDW Differential 44.6 H Plt Count 394 MPV 10.3 Immature Gran % (Auto) 0.200 Neut % (Auto) 63.3 Lymph % (Auto) 26.9 [place] % (Auto) 8.0 Eos % (Auto) 1.1 Baso % (Auto) 0.5 Absolute Neuts (auto) 6.6 Absolute Lymphs (auto) 2.79 Total Counted Not Reportable PT 12.2 INR 0.9 Sodium 135 L Potassium 3.7 Chloride 106 Carbon Dioxide 24.0 Anion Gap 5 BUN 20 H Creatinine 0.88 Estim Creat Clear Calc 43.30 Est GFR (MDRD) Af Amer 80 Est GFR (MDRD) Non-Af 66 BUN/Creatinine Ratio 22.9 H Glucose 258 H Calcium 9.1 Troponin I 0.019 Assessment/Plan All Active Problems (Last Reviewed 12/21/18 @ 10:34 by Ana Dupont) Atypical chest pain (Acute) Lower extremity edema (Acute) Intractable back pain (Acute) Acute right lumbar radiculopathy (Acute) Legionella pneumonia (Resolved) Sepsis (Resolved) Pneumonia (Resolved) The patient is a 83 year old F with history of coronary artery disease status post three-vessel CABG and 7 stent last MD/stent about 5 years ago came to ED with chest pain, twice since yesterday. Patient felt chest pressure/heaviness, localized while doing yard work/weeding out yesterday and lasted for about 15 minutes. She had similar event today. This was not associated with shortness of breath, dizziness, lightheadedness, diaphoresis or syncope. She also has bilateral lower extremity edema which she states on and off and is on Lasix 40 mg daily and KCl. He also has left hand edema and unable to make complete fist. She has appointment with repair armature winder helper tomorrow and she had already missed twice. In ED, her blood pressure was high. 172/80, 185/101. Heart rate in 90s and 80s. No hypoxia. EKG reported as sinus tachycardia with occasional PVCs. QTc 479 ms chest x-ray reported no acute findings. 1. Atypical chest pain with suspicion of angina: Patient is being admitted in PCU. On ACS protocol with serial cardiac enzymes. Repeat EKG. If troponins are negative, pharmacological nuclear stress test tomorrow morning. Patient had last stress test in October 2014 which was negative with EF 69%. 2. Carotid artery disease status post triple bypass and multiple stents: Continue home cardiac medications. Patient is on aspirin, isosorbide mononitrate, metoprolol and Lasix. 3. Possible heart failure, exact type and etiology unclear possible ischemic cardiomyopathy: There is no previous echo. The echo is ordered. As mentioned above. Monitor intake and output. Titrate dose of Lasix and monitor electrolytes. 5. Other cardiac conditions: Arrhythmia, SVT and hypertension: Blood pressure is high. Started on losartan 50 mg daily and titrate accordingly. Hydralazine 10 mg IV every 4 hourly as needed for systolic blood pressure more than 180 mmHg. On metoprolol rest as mentioned above 4. Rheumatologic disease: Patient has left hand swelling, probably secondary to edema, reactive. Follow-up with repair armature winder helper as an outpatient. CRP and LFT ordered. 5. Diabetes mellitus type II: Patient blood sugar is not controlled. Glucose 258. Check gassiness is covered with Humalog sliding scale. On Lantus; increased to 30 units subcu daily. Other chronic comorbidities chronic anemia, history of GI bleed, chronic lumbar spinal stenosis, obesity, mild, dyslipidemia and TIA: Patient H&H is 9.6/30.4; that is on her baseline. Home medication reconciliation done. Multiple comorbidities complicates the present care and expect difficult and delay recovery DVT prophylaxis: Lovenox 40 mg subcu daily. Discontinue if platelet count drops less than 50,000 or hemoglobin less than 8 g%. Laboratory Results 02/01/19 13:15: WBC 10.4, RBC 3.76 L, Hgb 9.6 L, Hct 30.4 L, MCV 80.9 L, MCH 25.5 L, MCHC 31.6 L, RDW 15.2 H, RDW Differential 44.6 H, Plt Count 394, MPV 10.3, Immature Gran % (Auto) 0.200, Neut % (Auto) 63.3, Lymph % (Auto) 26.9, [place] % (Auto) 8.0, Eos % (Auto) 1.1, Baso % (Auto) 0.5, Absolute Neuts (auto) 6.6, Absolute Lymphs (auto) 2.79, Total Counted Not Reportable 02/01/19 13:15: PT 12.2, INR 0.9 02/01/19 13:15: Sodium 135 L, Potassium 3.7, Chloride 106, Carbon Dioxide 24.0, Anion Gap 5, BUN 20 H, Creatinine 0.88, Estim Creat Clear Calc 43.30, Est GFR (MDRD) Af Amer 80, Est GFR (MDRD) Non-Af 66, BUN/Creatinine Ratio 22.9 H, Glucose 258 H, Calcium 9.1, Troponin I 0.019 Clinical Impression(s) from Imaging Studies Chest X-Ray 02/01/19 13:12 IMPRESSION: No acute findings Code Visit OBSV E&M: 37623 Initial observation care L3
--- NOTE | 2019-02-01 16:35 | ECHOD_ITS ---
Reason For Study: HEART FAILURE Procedure This was a 2D Doppler, Color Flow transthoracic echocardiogram. Technically limited study due to pain from Legionnaires' in left arm that prevents her from positioning properly for exam. The study was technically difficult. Exam performed in department. Left Ventricle Normal LV size. Left ventricular systolic function is normal. The estimated ejection fraction is 70 %. Diastolic function is indeterminate. No regional wall motion abnormalities noted. Right Ventricle Normal RV size. Normal systolic function. Atria The left atrium is mildly enlarged. Normal right atrium. No doppler evidence for ASD. Mitral Valve There is no mitral annular calcification. Normal mitral valve. Mild (1+) mitral valve insufficiency. Tricuspid Valve Normal tricuspid valve. Mild tricuspid valve insufficiency. Unable to estimate RV systolic pressure/pulmonary artery pressure due to technically difficult study. Aortic Valve Trisinus/trileaflet aortic valve. Normal aortic valve. Pulmonic Valve The pulmonic valve is not well visualized. Great Vessels Normal sized aortic root. Pericardium/Pleural No pericardial effusion. MMode/2D Measurements & Calculations LVIDd: 3.9 cm IVSd: 1.4 cm Ao root diam: 3.3 cm LVIDs: 2.5 cm LVPWd: 1.2 cm RVDd: 3.3 cm FS: 34.8 % LAV(MOD-bp): 53.2 ml LA A4 area: 20.4 cm2 LA dimension(2D): 4.3 cm LAV(MOD-bp) Indexed: 29.7 ml/m2 LAV(MOD-sp2): 42.5 ml LAV(MOD-sp4): 66.8 ml RA A4 area: 15.4 cm2 Time Measurements MV dec time: 0.23 sec Doppler Measurements & Calculations MV E max carloz: 103.1 cm/sec Lat Peak E' Carloz: 5.4 cm/sec Med Peak E' Carloz: 4.5 cm/sec MV A max carloz: 115.0 cm/sec E/E' lat: 19.2 E/E' med: 22.8 MV E/A: 0.90 Ao V2 max: 152.8 cm/sec LV V1 max: 100.4 cm/sec Ao max P.3 mmHg LV V1 max P.0 mmHg Interpretation Summary The study was technically difficult. Left ventricular systolic function is normal. The estimated ejection fraction is 70 %. Mild (1+) mitral valve insufficiency. Mild tricuspid valve insufficiency. Unable to estimate RV systolic pressure/pulmonary artery pressure due to technically difficult study. Diastolic function is indeterminate. Ordering Physician: Sebastian Fortune Referring Physician: FIORELLA STEINER CHI Performed By: Saira Grayson, TORREY, RVT
--- NOTE | 2019-02-01 16:35 | EKG12_ITS ---
Test Reason : Blood Pressure : / mmHG Vent. Rate : 076 BPM Atrial Rate : 076 BPM P-R Int : 126 ms QRS Dur : 096 ms QT Int : 388 ms P-R-T Axes : 024 -31 063 degrees QTc Int : 436 ms Sinus rhythm with Premature atrial complexes Left axis deviation Incomplete right bundle branch block Inferior FL, age undetermined, cannot be excluded Abnormal ECG Confirmed by BEST CORONA, JOON ([id number]), photograph editor SAMIA NATH ([id number]) on 02/03/2019 1:51:54 PM Referred By: KERRIE Confirmed By:JOON JEWELL MD
[2019-02-01] MEDS: hydrALAZINE 20 MG/ML Vial 10 MG IV (17:05)
[2019-02-01 17:08] LABS: AST(SGOT) 7 U/L (15-37); Alanine Aminotransfer ALT/SGPT 14 U/L (13-56); Albumin, Serum 2.8 g/dL (3.2-5.0); Alkaline Phosphatase 70 U/L (45-117); Bilirubin, Direct 0.09 mg/dL (0.00-0.30); Globulin 3.7 g/dL (2.2-4.2); Protein, Total 6.5 g/dL (6.4-8.2)
[2019-02-01] MEDS: Enoxaparin 40 MG/0.4 ML Syringe SC (17:41)
[2019-02-01] MEDS: Losartan Potassium 50 MG Tablet PO (17:41)
[2019-02-01] MEDS: Metoprolol(XL)Succ 50 MG Tablet PO (17:41)
[2019-02-01] MEDS: HYDROcodone Bitartrate/Apap 5/325 Tablet PO (22:15)
[2019-02-01] MEDS: Atorvastatin Calcium 20 MG Tablet 40 MG PO (22:15)
[2019-02-02] VITALS (13 sets, daily range): BP systolic 136–170; BP diastolic 69–96; PULSE 71–93; RESP 15–22; TEMP 36.6–36.8; O2SAT 95–100
[2019-02-02 00:25] LABS: Bedside Glucose 220 mg/dL (70-110)
--- NOTE | 2019-02-02 04:00 | EKG12_ITS ---
Test Reason : CP Blood Pressure : / mmHG Vent. Rate : 102 BPM Atrial Rate : 102 BPM P-R Int : 136 ms QRS Dur : 092 ms QT Int : 368 ms P-R-T Axes : 051 -48 060 degrees QTc Int : 479 ms Sinus tachycardia with occasional Premature ventricular complexes Incomplete right bundle branch block Left anterior fascicular block Inferior infarct (cited on or before 30-JUL-2018), age undetermined Abnormal ECG Confirmed by YELITZA RIGGS ([id number]), telegraph editor SAMIA NATH ([id number]) on 02/05/2019 11:00:12 AM Referred By: MYESHA/CATHERINE Confirmed By:YELITZA RIGGS
[2019-02-02 04:49] LABS: Prothrombin Time (Protime)PT. 12.7 SECONDS (11.7-14.9)
[2019-02-02 04:55] LABS: Absolute Lymphocyte Count 2.21 X10^3/ul (0.83-4.51); Absolute Neutrophil Count 4.9 X10^3/uL (2.0-7.7); Basophil# 0.03 X10^3/uL; Basophil% 0.4 % (0-1); Eosinophil# 0.14 X10^3/uL; Eosinophils% 1.7 % (0-5); Hematocrit 31.2 % (37-47); Hemoglobin 9.9 g/dl (12.0-15.0); Lymphocyte # 2.21 X10^3/ul (4.0); Lymphocyte % 27.6 % (19-41); Mean Corp Hgb Conc 31.7 g/gl (32-36); Mean Corpuscular Hgb 25.6 pg (27.0-32.0); Mean Corpuscular Volume 80.6 fL (81-99); Mean Platelet Vol. 9.8 fl (6.2-12.0); Monocyte# 0.73 X10^3/uL; Monocyte% 9.1 % (0-10); Neutrophil # 4.88 X10^3/uL (2.7-7.7); Neutrophil % 60.8 % (47-70); Platelet Count 335 K/mm3 (150-450); RBC Distribution Width CV 15.2 % (11.6-14.6); RBC Distribution Width SD 44.5 fl (35.1-43.9); Red Blood Count 3.87 M/mm3 (4.2-5.4)
[2019-02-02 04:56] LABS: POSITIVE COUNT NO; POSITIVE DIFFERENTIAL NO; POSITIVE MORPHOLOGY NO
[2019-02-02 05:04] LABS: Anion Gap 8 (5-15); BUN 14 mg/dL (7-18); BUN/Creat Ratio 20.6 RATIO (10-20); Calcium,Total 8.9 mg/dL (8.5-10.1); Chloride 109 mmol/L (98-107); Cholesterol 137 mg/dL (200); Creatinine, Serum 0.68 mg/dL (0.55-1.02); EST Glomerular Filtration Rate 89 mL/min (>60); Est Glom Filt Rate - Afr Amer 107 mL/min (>60); Glucose 115 mg/dL (74-106); High Density Lipoprotein 39 mg/dL; Potassium 3.6 mmol/L (3.5-5.1); Sodium Level 143 mmol/L (136-145); Thyroid Stim Hormone (TSH) 2.18 uIU/mL (0.358-3.74); Triglycerides 132 mg/dL; Very Low Density Lipoprotein 26 mg/dL (5-40)
[2019-02-02] MEDS: Aspirin 81 MG TAB.CHEW PO (05:34)
[2019-02-02] MEDS: Losartan Potassium 50 MG Tablet PO (05:35)
[2019-02-02] MEDS: Levothyroxine 137 MCG Tablet PO (05:35)
[2019-02-02 06:40] LABS: Bedside Glucose 114 mg/dL (70-110)
--- NOTE | 2019-02-02 09:47 | STRESSREP_ITS ---
Stress Test Report Date: 02-02-19 Procedure: Pharmacologic stress nuclear imaging study Indications: Chest pain; CAD; PCI; CABG Consent: Per the patient Procedure: The patient underwent pharmacologic (Regadenoson) evaluation with a peak heart rate of 101 beats per minute (72% predicted maximal heart rate) and a peak blood pressure of 160/82 mmHg. The baseline ECG demonstrated normal sinus rhythm; incomplete right bundle branch block pattern. The peak pharmacologic ECG demonstrated no obvious ECG changes. There were no cardiac dysrhythmias pretest, during pharmacologic infusion, or recovery. There was no complaint of chest discomfort during pharmacologic infusion or recovery. The examination was discontinued secondary to completion of protocol. Impression: 1. Pharmacologic (Regadenoson) evaluation 2. Peak pharmacologic ECG with no obvious ECG changes. 3. There were no cardiac dysrhythmias pretest, during pharmacologic infusion, or recovery. 4. Nuclear images pending Myocardial perfusion imaging study: Technique: The patient was injected with 11.3 millicuries of technetium 99m Cardiolite and subsequently rest SPECT Cardiolite nuclear imaging was obtained in the horizontal long, vertical long, and short axis views. The patient underwent pharmacologic (Regadenoson) evaluation with a peak heart rate of 101 beats per minute (72 % percent predicted maximal heart rate) and a peak blood pressure of 160/82 mmHg. The patient was injected with 32.6 millicuries of technetium 99m Cardiolite and subsequently stress SPECT Cardiolite nuclear imaging was obtained in the horizontal long, vertical long, and short axis views. A gated Cardiolite study at peak stress was obtained. Interpretation: Rest and stress SPECT Cardiolite nuclear imaging status post realignment, normalization, and attenuation correction demonstrate the appearance of relative uniform tracer uptake/myocardial perfusion at rest. Status post stress there ap pears to be an area of diminished tracer uptake in portions of the mid towards distal anterolateral segments. There are similar type findings on the resting and stress polar map images.. There is end systolic thickening and brightening. The gated Cardiolite study demonstrates myocardial thickening and inward wall motion. The reported LVEF is 66 %. Impression: 1. Rest and stress SPECT current nuclear imaging demonstrate post stress myocardial perfusion changes concerning for an area of stress-induced myocardial ischemia and portions of the mid to distal anterolateral segments. 2. The gated Cardiolite study reports an LVEF of 66 %. This note was generated with Dragon dictation software. It may contain incorrect words, spelling, and punctuation that were not noted in checking the note before signing.
[2019-02-02 09:48] LABS: Iron 24 ug/dL (50-170); Iron Binding Capacity,Total 288 ug/dL (250-450); PERCENT IRON SATURATION 8.3 % (15.0-55.0)
[2019-02-02] MEDS: Isosorbide Mononitrate 30 MG Tablet PO (09:49)
[2019-02-02] MEDS: Metoprolol(XL)Succ 50 MG Tablet PO (09:49)
[2019-02-02] MEDS: Furosemide 40 MG Tablet PO (09:50)
--- NOTE | 2019-02-02 11:01 | PCM.PROGNOTE ---
<Anish Villanueva - Last Filed: 02/02/19 11:01> Patient Problems: Active and Suspected Problems (Last Reviewed 12/21/18 @ 10:34 by Ana Dupont) Atypical chest pain (Acute) Lower extremity edema (Acute) Angina pectoris (Acute) NSTEMI (non-ST elevated myocardial infarction) (Acute) Subjective: Pt underwent abnormal stress test this AM, she reported feeling fine during the test. She states today she has had no CP, no SOB, no Palp, no LH/Dizziness. The last two days she had chest pain described as a brick sitting on her midsternal region. No radiation, no SOB, no diaphoresis, no palp. She has had triple bypass in the past and seven stents. She normally follows Dr. Bonilla. She is very active at home, still gardens, works outside, [employer]. - Physical Exam General: Alert, Oriented x3, Cooperative HEENT: Atraumatic, PERRLA, EOMI, Normocephalic Neck: Supple, No JVD, Negative Carotid Bruits Lungs: Clear to auscultation, Normal air movement Cardiovascular: Regular rate, No murmurs Abdomen: Bowel Sounds Present, Soft, Non Tender Extremities: Capillary Refill Less than 3 Seconds, Edema - BL LE, LUE. Skin: No rashes, No breakdown Musculoskeletal: No Tenderness to Palpation of Joints or Extremities Neurological: Cranial nerves II-XII grossly intact Psych/Mental Status: Normal Affect, Appropriate, Alert and oriented to time, place, person, mood and affect Vital Signs Temp Pulse Resp BP Pulse Ox 98.1 F 93 15 161/96 H 100 02/02/19 09:43 02/02/19 09:58 02/02/19 09:43 02/02/19 09:49 02/02/19 09:43 Oxygen Delivery Method Room Air Weight: 162 lb 11.218 oz Body Mass Index (BMI) 27.9 Intake and Output for Last 24 Hours 01/31/19 02/01/19 02/02/19 23:59 23:59 23:59 Intake Total 480 / 480 Balance 480 / 480 Laboratory Tests Past 24 Hrs 02/01/19 02/01/19 02/01/19 13:15 13:15 13:15 WBC 10.4 RBC 3.76 L Hgb 9.6 L Hct 30.4 L MCV 80.9 L MCH 25.5 L MCHC 31.6 L RDW 15.2 H RDW Differential 44.6 H Plt Count 394 MPV 10.3 Immature Gran % (Auto) 0.200 Neut % (Auto) 63.3 Lymph % (Auto) 26.9 [place] % (Auto) 8.0 Eos % (Auto) 1.1 Baso % (Auto) 0.5 Absolute Neuts (auto) 6.6 Absolute Lymphs (auto) 2.79 Total Counted Not Reportable PT 12.2 INR 0.9 APTT Sodium 135 L Potassium 3.7 Chloride 106 Carbon Dioxide 24.0 Anion Gap 5 BUN 20 H Creatinine 0.88 Estim Creat Clear Calc 43.30 Est GFR (MDRD) Af Amer 80 Est GFR (MDRD) Non-Af 66 BUN/Creatinine Ratio 22.9 H Glucose 258 H Calcium 9.1 Iron TIBC Iron Saturation Total Bilirubin Direct Bilirubin AST ALT Alkaline Phosphatase Troponin I 0.019 C-React Prot Ext Range B-Natriuretic Peptide Total Protein Albumin Globulin Triglycerides Cholesterol LDL Cholesterol VLDL Cholesterol HDL Cholesterol TSH 02/01/19 02/01/19 02/01/19 13:15 13:15 17:31 WBC RBC Hgb Hct MCV MCH MCHC RDW RDW Differential Plt Count MPV Immature Gran % (Auto) Neut % (Auto) Lymph % (Auto) [place] % (Auto) Eos % (Auto) Baso % (Auto) Absolute Neuts (auto) Absolute Lymphs (auto) Total Counted PT INR APTT Sodium Potassium Chloride Carbon Dioxide Anion Gap BUN Creatinine Estim Creat Clear Calc Est GFR (MDRD) Af Amer Est GFR (MDRD) Non-Af BUN/Creatinine Ratio Glucose Calcium Iron TIBC Iron Saturation Total Bilirubin 0.30 Direct Bilirubin 0.09 AST 7 L ALT 14 Alkaline Phosphatase 70 Troponin I 0.059 H C-React Prot Ext Range 10.70 H B-Natriuretic Peptide 108.0 H Total Protein 6.5 Albumin 2.8 L Globulin 3.7 Triglycerides Cholesterol LDL Cholesterol VLDL Cholesterol HDL Cholesterol TSH 02/01/19 02/01/19 02/02/19 20:32 22:35 04:34 WBC RBC Hgb Hct MCV MCH MCHC RDW RDW Differential Plt Count MPV Immature Gran % (Auto) Neut % (Auto) Lymph % (Auto) [place] % (Auto) Eos % (Auto) Baso % (Auto) Absolute Neuts (auto) Absolute Lymphs (auto) Total Counted PT INR APTT Sodium 143 Potassium 3.6 Chloride 109 H Carbon Dioxide 26.0 Anion Gap 8 BUN 14 Creatinine 0.68 Estim Creat Clear Calc 38.10 Est GFR (MDRD) Af Amer 107 Est GFR (MDRD) Non-Af 89 BUN/Creatinine Ratio 20.6 H Glucose 115 H Calcium 8.9 Iron TIBC Iron Saturation Total Bilirubin Direct Bilirubin AST ALT Alkaline Phosphatase Troponin I 0.112 H 0.140 H C-React Prot Ext Range B-Natriuretic Peptide Total Protein Albumin Globulin Triglycerides 132 Cholesterol 137 LDL Cholesterol 72 VLDL Cholesterol 26 HDL Cholesterol 39 L TSH 2.18 02/02/19 02/02/19 02/02/19 04:34 04:34 04:34 WBC 8.0 RBC 3.87 L Hgb 9.9 L Hct 31.2 L MCV 80.6 L MCH 25.6 L MCHC 31.7 L RDW 15.2 H RDW Differential 44.5 H Plt Count 335 MPV 9.8 Immature Gran % (Auto) 0.400 Neut % (Auto) 60.8 Lymph % (Auto) 27.6 [place] % (Auto) 9.1 Eos % (Auto) 1.7 Baso % (Auto) 0.4 Absolute Neuts (auto) 4.9 Absolute Lymphs (auto) 2.21 Total Counted Not Reportable PT 12.7 INR 1.0 APTT 30.0 Sodium Potassium Chloride Carbon Dioxide Anion Gap BUN Creatinine Estim Creat Clear Calc Est GFR (MDRD) Af Amer Est GFR (MDRD) Non-Af BUN/Creatinine Ratio Glucose Calcium Iron 24 L TIBC 288 Iron Saturation 8.3 L Total Bilirubin Direct Bilirubin AST ALT Alkaline Phosphatase Troponin I C-React Prot Ext Range B-Natriuretic Peptide Total Protein Albumin Globulin Triglycerides Cholesterol LDL Cholesterol VLDL Cholesterol HDL Cholesterol TSH POC Glucose 02/02/19 02/01/19 06:35 22:02 POC Glucose 114 H 220 H Medical Necessity - Tobacco Use Smoking Status: Former smoker Tobacco Use: Cigarettes Assessment/Plan All Active Problems (Last Reviewed 12/21/18 @ 10:34 by Ana Dupont) Atypical chest pain (Acute) Lower extremity edema (Acute) Angina pectoris (Acute) NSTEMI (non-ST elevated myocardial infarction) (Acute) Intractable back pain (Acute) Acute right lumbar radiculopathy (Acute) Legionella pneumonia (Resolved) Sepsis (Resolved) Pneumonia (Resolved) 1. Chest pain in the setting of CAD with prior CABG/Stents, and abnormal stress test - Cardiology consulted. Trop trending up. Hx 3 vessel bypass and 7 stents. Hx SVT. Continue home meds - Aspirin, statin, imdur, losartan, toprol 2. Underlying CHF - some LE edema, no increased SOB/O2 demans so likely not acute exacerbation. No echo in system - pending. BNP 108. TSH normal. 3. Microcytic anemia - trend. Low Iron / Stat, normal TIBC. Will supplement with venofer x1 and PO iron. Check stool occult blood 4. Underlying Rheumatoid disease - o/p follow up with [facility] planned. 5. DMt2 - SSI, lantus. Orals held. 6. Hx GI bleed. As per #3. 7.HTN - trending high, trend and adjust home meds. 8. Hypothyroidism - synthroid. TSH normal DVT ppx: lovenox DC planning: pending further cardiac workup This patient was seen by Anish Villanueva PA-C under the supervision of Dr. Fortune. <Sebastian Fortune - Last Filed: 02/02/19 15:45> Subjective: Patient was admitted with chest pain with mild exertion like weeding out in lawn. Serial troponin shows elevation. Stress test was reported as abnormal. Cardiology consult was requested. Today she is chest pain-free. No shortness of breath or palpitation. - Physical Exam General: Alert, Oriented x3, Cooperative HEENT: Atraumatic, PERRLA, EOMI, Normocephalic Neck: Supple, No JVD, Negative Carotid Bruits Lungs: Clear to auscultation, Normal air movement, No rhonchi, No wheeze, No rales Cardiovascular: Regular rate, Regular Rhythm, Normal S1, Normal S2, No murmurs Abdomen: Bowel Sounds Present, Soft, Non Tender Extremities: Capillary Refill Less than 3 Seconds, Edema Skin: No rashes, No breakdown Musculoskeletal: No Tenderness to Palpation of Joints or Extremities, Arthritic Changes, Muscle Wasting Neurological: Cranial nerves II-XII grossly intact, Deep Tendon Reflexes 2+/4 and Symmetrical, Neuro grossly intact Psych/Mental Status: Normal Affect, Appropriate Vital Signs Temp Pulse Resp BP Pulse Ox 97.8 F 84 15 136/75 H 98 02/02/19 12:19 02/02/19 12:19 02/02/19 12:19 02/02/19 12:19 02/02/19 12:19 Oxygen Delivery Method Room Air Weight: 162 lb 11.218 oz Body Mass Index (BMI) 27.9 Intake and Output for Last 24 Hours 01/31/19 02/01/19 02/02/19 23:59 23:59 23:59 Intake Total 480 / 480 640 / 640 Balance 480 / 480 640 / 640 Laboratory Tests Past 24 Hrs 02/01/19 02/01/19 02/01/19 13:15 13:15 17:31 WBC RBC Hgb Hct MCV MCH MCHC RDW RDW Differential Plt Count MPV Immature Gran % (Auto) Neut % (Auto) Lymph % (Auto) [place] % (Auto) Eos % (Auto) Baso % (Auto) Absolute Neuts (auto) Absolute Lymphs (auto) Total Counted PT INR APTT Sodium Potassium Chloride Carbon Dioxide Anion Gap BUN Creatinine Estim Creat Clear Calc Est GFR (MDRD) Af Amer Est GFR (MDRD) Non-Af BUN/Creatinine Ratio Glucose Calcium Iron TIBC Iron Saturation Total Bilirubin 0.30 Direct Bilirubin 0.09 AST 7 L ALT 14 Alkaline Phosphatase 70 Troponin I 0.059 H C-React Prot Ext Range 10.70 H B-Natriuretic Peptide 108.0 H Total Protein 6.5 Albumin 2.8 L Globulin 3.7 Triglycerides Cholesterol LDL Cholesterol VLDL Cholesterol HDL Cholesterol TSH 02/01/19 02/01/19 02/02/19 20:32 22:35 04:34 WBC RBC Hgb Hct MCV MCH MCHC RDW RDW Differential Plt Count MPV Immature Gran % (Auto) Neut % (Auto) Lymph % (Auto) [place] % (Auto) Eos % (Auto) Baso % (Auto) Absolute Neuts (auto) Absolute Lymphs (auto) Total Counted PT INR APTT Sodium 143 Potassium 3.6 Chloride 109 H Carbon Dioxide 26.0 Anion Gap 8 BUN 14 Creatinine 0.68 Estim Creat Clear Calc 38.10 Est GFR (MDRD) Af Amer 107 Est GFR (MDRD) Non-Af 89 BUN/Creatinine Ratio 20.6 H Glucose 115 H Calcium 8.9 Iron TIBC Iron Saturation Total Bilirubin Direct Bilirubin AST ALT Alkaline Phosphatase Troponin I 0.112 H 0.140 H C-React Prot Ext Range B-Natriuretic Peptide Total Protein Albumin Globulin Triglycerides 132 Cholesterol 137 LDL Cholesterol 72 VLDL Cholesterol 26 HDL Cholesterol 39 L TSH 2.18 02/02/19 02/02/19 02/02/19 04:34 04:34 04:34 WBC 8.0 RBC 3.87 L Hgb 9.9 L Hct 31.2 L MCV 80.6 L MCH 25.6 L MCHC 31.7 L RDW 15.2 H RDW Differential 44.5 H Plt Count 335 MPV 9.8 Immature Gran % (Auto) 0.400 Neut % (Auto) 60.8 Lymph % (Auto) 27.6 [place] % (Auto) 9.1 Eos % (Auto) 1.7 Baso % (Auto) 0.4 Absolute Neuts (auto) 4.9 Absolute Lymphs (auto) 2.21 Total Counted Not Reportable PT 12.7 INR 1.0 APTT 30.0 Sodium Potassium Chloride Carbon Dioxide Anion Gap BUN Creatinine Estim Creat Clear Calc Est GFR (MDRD) Af Amer Est GFR (MDRD) Non-Af BUN/Creatinine Ratio Glucose Calcium Iron 24 L TIBC 288 Iron Saturation 8.3 L Total Bilirubin Direct Bilirubin AST ALT Alkaline Phosphatase Troponin I C-React Prot Ext Range B-Natriuretic Peptide Total Protein Albumin Globulin Triglycerides Cholesterol LDL Cholesterol VLDL Cholesterol HDL Cholesterol TSH POC Glucose 02/02/19 02/01/19 06:35 22:02 POC Glucose 114 H 220 H Assessment/Plan This patient was seen in conjunction with Anish PERRY. I have independently interviewed and examined the patient and reviewed pertinent history, examination findings, laboratory and plan of management. I have reviewed the note and agree with the documented findings with the few additional points. In brief, patient is admitted for chest pain on mild exertion consistent with unstable angina. Patient further had elevation in troponin, 0.059, 0.112, 0.14. Stress test was done and reported as area for stress-induced myocardial ischemia in mid to distal anterolateral segment. Was done and reported as EF 70% with indeterminate diastolic function with no regional wall motion abnormalities. Mild MR. Patient is on aspirin, Plavix, nitrate, metoprolol, losartan and statin. Patient is also on Lasix 40 mg daily for bilateral lower extremity edema. Chest x-ray did not show acute finding. BNP 108 on upper level of normal therefore no acute heart failure but may be chronic diastolic heart failure. Patient also has anemia of chronic disease, H&H 9.6 last 30.4, MCV 81. Patient had 1 dose of iron sucrose I have discussed my assessment with Anish PERRY and orders have been reviewed. Clinical Impression(s) from Imaging Studies Chest X-Ray 02/01/19 13:12 IMPRESSION: No acute findings Code Visit Inpatient E&M: 89235 Subs Hosp L3
[2019-02-02] MEDS: 0.9% NaCl Peripheral Flush Adult/Peds IV (13:22)
--- NOTE | 2019-02-02 14:02 | PCM.CONS.C ---
Problem List (1) NSTEMI (non-ST elevated myocardial infarction) Status: Acute (2) Angina pectoris Status: Acute (3) CAD (coronary artery disease) Status: Chronic Qualifiers: Coronary Disease-Associated Artery/Lesion type: [place] artery [place] vs. transplanted heart: [place] heart Associated angina: with unstable angina Qualified Code(s): I25.110 - Atherosclerotic heart disease of [place] coronary artery with unstable angina pectoris (4) History of coronary artery stent placement Status: Chronic Comment: KFI-XAE-Hgcn-Mid OM1 w/ 2.25 x 12 mm Promus Premier 12/30/2013 TWH-CCP-EJD-Prox-Mid OM2 w/ 3.0 x 23 mm Promus Stent 03/05/2010 DFZ-UMC-UUG-OM2 w/ Taxus Stent 04/2006 (5) H/O coronary artery bypass surgery Status: Chronic Comment: CABG x 3 SVG to D1, SVG-OM & SVG-RCA (6) HLD (hyperlipidemia) Status: Chronic Qualifiers: (7) Hypertension Status: Chronic Qualifiers: (8) Diabetes mellitus, type II Status: Chronic Qualifiers: (9) Anemia Status: Chronic Reason for Consult Date of Consultation: 02/02/19 History of Present Illness: The patient is a 83 year old female with a past medical history of underlying hyperlipidemia, hypertension, CAD, PCI, CABG, superimposed on diabetes mellitus, who presents for evaluation at this time for concerns of unstable angina pectoris and findings compatible with a non-ST segment elevation OK. She states that recently she has been noticing a nonexertional brick like sensation on her chest. It was not necessarily associated with additional radiation throughout her neck, upper extremities, etc. It was not necessarily associated with nausea, emesis, or diaphoresis. She noted no significant change in her respiratory status. She did use nitroglycerin sublingual for it with improvement of her symptoms. She had a recurrent episode. She summoned the EMS. She was brought to the hospital for further evaluation. She notes she was treated with aspirin and nitroglycerin sublingual. Again she had improvement in her symptoms. She has denied additional symptoms of orthopnea, PND, or worsening peripheral pitting edema. There has been no near syncope or syncope. She has been undergoing evaluation. This has included cardiac enzymes. Her troponin I levels have been increasing. Her ECG demonstrated sinus rhythm with a leftward axis with an incomplete right bundle branch block pattern and an inferior OK pattern of indeterminate age which cannot be excluded. She has undergone evaluation with a transthoracic echocardiogram and a pharmacologic stress nuclear imaging study as noted below. Of note her overall LV systolic function appeared to be preserved and her pharmacologic stress nuclear imaging study suggested stress-induced myocardial ischemia in the anterolateral distribution. Thus cardiology was consulted to evaluate the patient for consideration for diagnostic cardiac catheterization. In the meantime the patient has continued medical management. She has also been receiving, secondary to her history of anemia, iron IV infusions. [] Past Medical History Allergies/Adverse Reactions: Allergies No Known Allergies Allergy (Verified 11/13/18 03:25) Home Medications: Ambulatory Orders Medication Instructions Recorded Nitroglycerin (INPATIENT USE) 0.4 mg SUBLINGUAL Q5M PRN 12/21/13 [Nitrostat] ergocalciferol (vitamin D2) 50,000 50,000 unit PO QMONTH 11/18/17 unit capsule insulin glargine (U-300) conc. 300 27 unit SC DAILY ml 04/08/18 unit/mL (3 mL) subcutaneous pen Aspirin [Aspirin, Baby] 81 mg PO DAILY@0800 07/30/18 isosorbide mononitrate ER 30 mg 30 mg PO QAM #90 tab 11/03/18 tablet,extended release 24 hr Furosemide 40 mg PO DAILY 11/13/18 Hydrocodone/Acetaminophen 0.5 tab PO BID PRN 11/13/18 [Hydrocodone-Acetamin 5-325 mg] metoprolol succinate ER 50 mg 50 mg PO DAILY #90 tab 11/17/18 tablet,extended release 24 hr Glipizide/Metformin HCl 2 tab PO BID 02/01/19 [Glipizide-Metformin 2.5-250 mg] Levothyroxine [Synthroid] 137 mcg PO DAILY 02/01/19 Potassium Chloride [Klor-Con M20] 20 meq PO TID 02/01/19 Past Medical History (Chronic Problems): Chronic Problems (Last Reviewed 12/21/18 @ 10:34 by Ana Dupont) CAD (coronary artery disease) (Chronic) Anemia (Chronic) DDD (degenerative disc disease), lumbar (Chronic) Right lumbar radiculitis (Chronic) Segmental and somatic dysfunction of pelvic region (Chronic) Segmental and somatic dysfunction of lumbar region (Chronic) Diabetes mellitus, type II (Chronic) Obesity (BMI 30.0-34.9) (Chronic) Radiculopathy (Chronic) Acute right lumbar radiculopathy (Chronic) 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) Lightheaded (Chronic) Constipation (Chronic) GI bleed (Chronic) 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) PZD-PUG-Vlqa-Mid OM1 w/ 2.25 x 12 mm Promus Premier 12/30/2013 ABG-JZV-IEX-Prox-Mid OM2 w/ 3.0 x 23 mm Promus Stent 03/05/2010 JLW-DIF-GUP-OM2 w/ Taxus Stent 04/2006 CABG x 3 SVG to D1, SVG-OM & SVG-RCA History of coronary artery stent placement (Chronic 12/30/13) COJ-HPM-Ugbn-Mid OM1 w/ 2.25 x 12 mm Promus Premier 12/30/2013 NUN-VWT-QCT-Prox-Mid OM2 w/ 3.0 x 23 mm Promus Stent 03/05/2010 SGA-FMJ-PQT-OM2 w/ Taxus Stent 04/2006 H/O coronary artery bypass surgery (Chronic 09/08/92) CABG x 3 SVG to D1, SVG-OM & SVG-RCA SVT (supraventricular tachycardia) (Chronic) HLD (hyperlipidemia) (Chronic) TIA (transient ischemic attack) (Chronic) Carotid bruit (Chronic) Hypertension (Chronic) Surgical History: angioplasty, appendectomy, cholecystectomy, coronary bypass surgery, hysterectomy, - - Appendectomy, cholecystectomy, CABG x 3, PCI x 3, hysterectomy. Psychiatric History: No pertinent psych hx [employer] History: No pertinent [employer] WORK[employer] history - *Family History Maternal Family History: Family History (Last Reviewed 12/21/18 @ 10:34 by Ana Dupont) Mother Colon cancer Mother Heart disease History Items: Heart Disease Paternal Family History: Family History (Last Reviewed 12/21/18 @ 10:34 by Ana Dupont) Mother Colon cancer Mother Heart disease History Items: - - No marked paternal history of HD, CA, DM. Smoking Status: Former smoker Tobacco Use: Cigarettes Review of Systems - Review of Systems General: Denies: Fever, Night Sweats, Fatigue Cardiovascular: Reports: Chest Discomfort, Chest Discomfort at Rest. Denies: Shortness of Breath, Orthopnea, PND, Peripheral Edema, Palpitations, Lightheadedness, Dizziness, Near Syncope, Syncope Respiratory: Denies: Cough, Sputum Production, Hemoptysis Gastrointestinal: Denies: Hematemesis, Hematochezia, Melena Genitourinary: Denies: Dysuria, Hematuria Skin: Denies: Rash Subjectve: This is an 83-year-old white female who appears to be resting comfortably at the moment in no acute distress. Objective: Vital Signs Temp Pulse Resp BP Pulse Ox 97.8 F 84 15 136/75 H 98 02/02/19 12:19 02/02/19 12:19 02/02/19 12:19 02/02/19 12:19 02/02/19 12:19 Oxygen Delivery Method Room Air Weight: 162 lb 11.218 oz Body Mass Index (BMI) 27.9 Intake and Output for Last 24 Hours 01/31/19 02/01/19 02/02/19 23:59 23:59 23:59 Intake Total 480 / 480 640 / 640 Balance 480 / 480 640 / 640 General: Awake, Alert, Oriented x 3, Cooperative, No Acute Distress HEENT: Atraumatic, Normocephalic, PERRL, EOMI, Sclera Non Icteric Oral: Moist Mucosa Neck: Supple, Good ROM, No JVD Lungs: Clear to auscultation Cardiovascular: Regular Rhythm, Normal S1, Normal S2 Vascular: No Carotid Bruits Abdomen: Bowel Sounds Present, Soft, Non Tender Extremities: Trace RLE Edema, Trace LLE Edema Psych/Mental Status: Appropriate 02/01/19 13:15: Total Bilirubin 0.30, Direct Bilirubin 0.09 02/01/19 13:15: B-Natriuretic Peptide 108.0 H 02/01/19 17:31: Troponin I 0.059 H 02/01/19 20:32: Troponin I 0.112 H 02/01/19 22:35: Troponin I 0.140 H 02/02/19 04:34: Sodium 143, Potassium 3.6, Chloride 109 H, Carbon Dioxide 26.0, Anion Gap 8, BUN 14, Creatinine 0.68, Est GFR (MDRD) Af Amer 107, Est GFR (MDRD) Non-Af 89, BUN/Creatinine Ratio 20.6 H, Glucose 115 H, Calcium 8.9, Triglycerides 132, Cholesterol 137, LDL Cholesterol 72, VLDL Cholesterol 26, HDL Cholesterol 39 L 02/02/19 04:34: WBC 8.0, RBC 3.87 L, Hgb 9.9 L, Hct 31.2 L, MCV 80.6 L, MCH 25.6 L, MCHC 31.7 L, RDW 15.2 H, RDW Differential 44.5 H, Plt Count 335, MPV 9.8, Immature Gran % (Auto) 0.400, Neut % (Auto) 60.8, Lymph % (Auto) 27.6, [place] % (Auto) 9.1, Eos % (Auto) 1.7, Baso % (Auto) 0.4, Absolute Neuts (auto) 4.9, Total Counted Not Reportable 02/02/19 04:34: PT 12.7, INR 1.0, APTT 30.0 02/02/19 04:34: Iron 24 L, TIBC 288, Iron Saturation 8.3 L Rhythm: Sinus rhythm EKG: As noted above ECHO: Left ventricle normal with an LVEF of 70%; mild MR/mild TR Stress Test: Procedure: Pharmacologic stress nuclear imaging study Indications: Chest pain; CAD; PCI; CABG Consent: Per the patient Procedure: The patient underwent pharmacologic (Regadenoson) evaluation with a peak heart rate of 101 beats per minute (72% predicted maximal heart rate) and a peak blood pressure of 160/82 mmHg. The baseline ECG demonstrated normal sinus rhythm; incomplete right bundle branch block pattern. The peak pharmacologic ECG demonstrated no obvious ECG changes. There were no cardiac dysrhythmias pretest, during pharmacologic infusion, or recovery. There was no complaint of chest discomfort during pharmacologic infusion or recovery. The examination was discontinued secondary to completion of protocol. Impression: 1. Pharmacologic (Regadenoson) evaluation 2. Peak pharmacologic ECG with no obvious ECG changes. 3. There were no cardiac dysrhythmias pretest, during pharmacologic infusion, or recovery. 4. Nuclear images pending Myocardial perfusion imaging study: Technique: The patient was injected with 11.3 millicuries of technetium 99m Cardiolite and subsequently rest SPECT Cardiolite nuclear imaging was obtained in the horizontal long, vertical long, and short axis views. The patient underwent pharmacologic (Regadenoson) evaluation with a peak heart rate of 101 beats per minute (72 % percent predicted maximal heart rate) and a peak blood pressure of 160/82 mmHg. The patient was injected with 32.6 millicuries of technetium 99m Cardiolite and subsequently stress SPECT Cardiolite nuclear imaging was obtained in the horizontal long, vertical long, and short axis views. A gated Cardiolite study at peak stress was obtained. Interpretation: Rest and stress SPECT Cardiolite nuclear imaging status post realignment, normalization, and attenuation correction demonstrate the appearance of relative uniform tracer uptake/myocardial perfusion at rest. Status post stress there appears to be an area of diminished tracer uptake in portions of the mid towards distal anterolateral segments. There are similar type findings on the resting and stress polar map images.. There is end systolic thickening and brightening. The gated Cardiolite study demonstrates myocardial thickening and inward wall motion. The reported LVEF is 66 %. Impression: 1. Rest and stress SPECT current nuclear imaging demonstrate post stress myocardial perfusion changes concerning for an area of stress-induced myocardial ischemia and portions of the mid to distal anterolateral segments. 2. The gated Cardiolite study reports an LVEF of 66 %. Cardiac Cath: 12-26-13: Left ventricular systolic function considered preserved with an LVEF of 65% Left main coronary arteries no significant stenosis LAD with moderate mid segment stenosis LCx subtotally occluded RCA occluded with the distal vessel filling from left to right collaterals SVG to the diagonal branch patent SVG to the OM branch patent with post stent high-grade stenosis SVG to the RCA occluded PCI: 12-30-13: [facility]: PTCA/stent of the 90% stenosis in the proximal to mid first OM [id number] CT Surgery: 09-08-1992: [facility]: SVG to the diagonal branch; SVG to the OM branch; SVG to the RCA CXR: Preliminary evaluation: Post open heart surgery changes: No acute cardiopulmonary disease process appreciated: Please see official report Assessment/Plan 1. Non-ST segment elevation OK The patient has symptoms, abnormal troponin I levels, etc., concerning for an acute non-ST segment elevation OK. At the present time she appears to be symptomatically improved. She is undergone additional noninvasive studies which have included a follow-up transthoracic echocardiogram and a pharmacologic stress nuclear imaging study to evaluate her coronary physiology/ischemic burden. Her transthoracic echocardiogram demonstrated her overall LV systolic function to be preserved. Her pharmacologic stress nuclear imaging study suggested an area of stress-induced myocardial ischemia involving portions of the anterolateral distribution. At the present time she will continue medical management. This will include agents such as aspirin, antiplatelets, nitrates, beta-blockers, and lipid-lowering agents. Anticoagulants can be used as deemed appropriate. She should be considered for further evaluation with diagnostic cardiac catheterization. The procedure and risks were discussed with her. She was agreeable to this approach. Depending upon her findings she may or may not need additional medical management and/or percutaneous-based revascularization therapy. 2. Angina pectoris: Unstable The patient presented with what she described as nonexertional symptoms compatible with an unstable angina pectoris. She has been found to have abnormal cardiac markers and findings as noted above. The present time she does appear to be symptomatically improved. Thus she will continue medical management and further evaluation and care. 3. CAD status post PCI status post CABG The patient has a history of both having PCI and CABG in the past. The present time there be concern of the nature of her underlying [place] vessels as well as her graft vessels based upon her symptoms and objective findings. Thus she will continue medical management and be considered for further evaluation with diagnostic cardiac catheterization. 4. Hyperlipidemia The patient will continue lipid-lowering therapy. 5. Hypertension The blood pressure should be monitored. Her antihypertensive therapy can be adjusted as needed. 6. Diabetes mellitus She will continue under the care of internal medicine. 7. Anemia The patient does have anemia. Apparently she has a history of a gastrointestinal bleeding process. At the moment she appears to be without any acute hemorrhagic events. She is receiving iron supplementation. She will need to be monitored as her medications with respect to antiplatelet and anticoagulant therapy, are adjusted with respect to the concern of any obvious future hemorrhagic related issues. Comment: Patient's case has been discussed and reviewed with the patient. She was agreeable to this approach. This note was generated with NetMovieation software. It may contain incorrect words, spelling, and punctuation that were not noted in checking the note before signing.
--- NOTE | 2019-02-02 14:07 | CON.PCM_ITS ---
Problem List (1) NSTEMI (non-ST elevated myocardial infarction) Status: Acute (2) Angina pectoris Status: Acute (3) CAD (coronary artery disease) Status: Chronic Qualifiers: Coronary Disease-Associated Artery/Lesion type: [place] artery [place] vs. transplanted heart: [place] heart Associated angina: with unstable angina Qualified Code(s): I25.110 - Atherosclerotic heart disease of [place] coronary artery with unstable angina pectoris (4) History of coronary artery stent placement Status: Chronic Comment: SGD-NUD-Rhkx-Mid OM1 w/ 2.25 x 12 mm Promus Premier 12/30/2013 BZZ-GPL-TIZ-Prox-Mid OM2 w/ 3.0 x 23 mm Promus Stent 03/05/2010 ECU-WAV-PPI-OM2 w/ Taxus Stent 04/2006 (5) H/O coronary artery bypass surgery Status: Chronic Comment: CABG x 3 SVG to D1, SVG-OM & SVG-RCA (6) HLD (hyperlipidemia) Status: Chronic Qualifiers: (7) Hypertension Status: Chronic Qualifiers: (8) Diabetes mellitus, type II Status: Chronic Qualifiers: (9) Anemia Status: Chronic Reason for Consult Date of Consultation: 02/02/19 History of Present Illness: The patient is a 83 year old female with a past medical history of underlying hyperlipidemia, hypertension, CAD, PCI, CABG, superimposed on diabetes mellitus, who presents for evaluation at this time for concerns of unstable angina pectoris and findings compatible with a non-ST segment elevation SD. She states that recently she has been noticing a nonexertional brick like sensation on her chest. It was not necessarily associated with additional radiation t hroughout her neck, upper extremities, etc. It was not necessarily associated with nausea, emesis, or diaphoresis. She noted no significant change in her respiratory status. She did use nitroglycerin sublingual for it with improvement of her symptoms. She had a recurrent episode. She summoned the EMS. She was brought to the hospital for further evaluation. She notes she was treated with aspirin and nitroglycerin sublingual. Again she had improvement in her symptoms. She has denied additional symptoms of orthopnea, PND, or worsening peripheral pitting edema. There has been no near syncope or syncope. She has been undergoing evaluation. This has included cardiac enzymes. Her troponin I levels have been increasing. Her ECG demonstrated sinus rhythm with a leftward axis with an incomplete right bundle branch block pattern and an inferior SD pattern of indeterminate age which cannot be excluded. She has undergone evaluation with a transthoracic echocardiogram and a pharmacologic stress nuclear imaging study as noted below. Of note her overall LV systolic function appeared to be preserved and her pharmacologic stress nuclear imaging study suggested stress-induced myocardial ischemia in the anterolateral distribution. Thus cardiology was consulted to evaluate the patient for consideration for diagnostic cardiac catheterization. In the meantime the patient has continued medical management. She has also been receiving, secondary to her history of anemia, iron IV infusions. [] Past Medical History Allergies/Adverse Reactions: Allergies No Known Allergies Allergy (Verified 11/13/18 03:25) Home Medications: Ambulatory Orders Medication Instructions Recorded Nitroglycerin (INPATIENT USE) 0.4 mg SUBLINGUAL Q5M PRN 12/21/13 [Nitrostat] ergocalciferol (vitamin D2) 50,000 50,000 unit PO QMONTH 11/18/17 unit capsule insulin glargine (U-300) conc. 300 27 unit SC DAILY ml 04/08/18 unit/mL (3 mL) subcutaneous pen Aspirin [Aspirin, Baby] 81 mg PO DAILY@0800 07/30/18 isosorbide mononitrate ER 30 mg 30 mg PO QAM #90 tab 11/03/18 tablet,extended release 24 hr Furosemide 40 mg PO DAILY 11/13/18 Hydrocodone/Acetaminophen 0.5 tab PO BID PRN 11/13/18 [Hydrocodone-Acetamin 5-325 mg] metoprolol succinate ER 50 mg 50 mg PO DAILY #90 tab 11/17/18 tablet,extended release 24 hr Glipizide/Metformin HCl 2 tab PO BID 02/01/19 [Glipizide-Metformin 2.5-250 mg] Levothyroxine [Synthroid] 137 mcg PO DAILY 02/01/19 Potassium Chloride [Klor-Con M20] 20 meq PO TID 02/01/19 Past Medical History (Chronic Problems): Chronic Problems (Last Reviewed 12/21/18 @ 10:34 by Ana Dupont) CAD (coronary artery disease) (Chronic) Anemia (Chronic) DDD (degenerative disc disease), lumbar (Chronic) Right lumbar radiculitis (Chronic) Segmental and somatic dysfunction of pelvic region (Chronic) Segmental and somatic dysfunction of lumbar region (Chronic) Diabetes mellitus, type II (Chronic) Obesity (BMI 30.0-34.9) (Chronic) Radiculopathy (Chronic) Acute right lumbar radiculopathy (Chronic) 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) Lightheaded (Chronic) Constipation (Chronic) GI bleed (Chronic) 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) KAU-ROD-Ciuy-Mid OM1 w/ 2.25 x 12 mm Promus Premier 12/30/2013 HZK-CCE-CTX-Prox-Mid OM2 w/ 3.0 x 23 mm Promus Stent 03/05/2010 FNQ-DWN-BSG-OM2 w/ Taxus Stent 04/2006 CABG x 3 SVG to D1, SVG-OM & SVG-RCA History of coronary artery stent placement (Chronic 12/30/13) ZBD-UPH-Jwfe-Mid OM1 w/ 2.25 x 12 mm Promus Premier 12/30/2013 PWB-WHS-KPO-Prox-Mid OM2 w/ 3.0 x 23 mm Promus Stent 03/05/2010 QGH-NGE-QBA-OM2 w/ Taxus Stent 04/2006 H/O coronary artery bypass surgery (Chronic 09/08/92) CABG x 3 SVG to D1, SVG-OM & SVG-RCA SVT (supraventricular tachycardia) (Chronic) HLD (hyperlipidemia) (Chronic) TIA (transient ischemic attack) (Chronic) Carotid bruit (Chronic) Hypertension (Chronic) Surgical History: angioplasty, appendectomy, cholecystectomy, coronary bypass surgery, hysterectomy, - - Appendectomy, cholecystectomy, CABG x 3, PCI x 3, hysterectomy. Psychiatric History: No pertinent psych hx ELECTRONIC TESTER History: No pertinent ELECTRONIC TESTER history - *Family History Maternal Family History: Family History (Last Reviewed 12/21/18 @ 10:34 by Ana Dupont) Mother Colon cancer Mother Heart disease History Items: Heart Disease Paternal Family History: Family History (Last Reviewed 12/21/18 @ 10:34 by Ana Dupont) Mother Colon cancer Mother Heart disease History Items: - - No marked paternal history of HD, CA, DM. Smoking Status: Former smoker Tobacco Use: Cigarettes Review of Systems - Review of Systems General: Denies: Fever, Night Sweats, Fatigue Cardiovascular: Reports: Chest Discomfort, Chest Discomfort at Rest. Denies: Shortness of Breath, Orthopnea, PND, Peripheral Edema, Palpitations, Lightheadedness, Dizziness, Near Syncope, Syncope Respiratory: Denies: Cough, Sputum Production, Hemoptysis Gastrointestinal: Denies: Hematemesis, Hematochezia, Melena Genitourinary: Denies: Dysuria, Hematuria Skin: Denies: Rash Subjectve: This is an 83-year-old white female who appears to be resting comfortably at the moment in no acute distress. Objective: Vital Signs Temp Pulse Resp BP Pulse Ox 97.8 F 84 15 136/75 H 98 02/02/19 12:19 02/02/19 12:19 02/02/19 12:19 02/02/19 12:19 02/02/19 12:19 Oxygen Delivery Method Room Air Weight: 162 lb 11.218 oz Body Mass Index (BMI) 27.9 Intake and Output for Last 24 Hours 01/31/19 02/01/19 02/02/19 23:59 23:59 23:59 Intake Total 480 / 480 640 / 640 Balance 480 / 480 640 / 640 General: Awake, Alert, Oriented x 3, Cooperative, No Acute Distress HEENT: Atraumatic, Normocephalic, PERRL, EOMI, Sclera Non Icteric Oral: Moist Mucosa Neck: Supple, Good ROM, No JVD Lungs: Clear to auscultation Cardiovascular: Regular Rhythm, Normal S1, Normal S2 Vascular: No Carotid Bruits Abdomen: Bowel Sounds Present, Soft, Non Tender Extremities: Trace RLE Edema, Trace LLE Edema Psych/Mental Status: Appropriate 02/01/19 13:15: Total Bilirubin 0.30, Direct Bilirubin 0.09 02/01/19 13:15: B-Natriuretic Peptide 108.0 H 02/01/19 17:31: Troponin I 0.059 H 02/01/19 20:32: Troponin I 0.112 H 02/01/19 22:35: Troponin I 0.140 H 02/02/19 04:34: Sodium 143, Potassium 3.6, Chloride 109 H, Carbon Dioxide 26.0, Anion Gap 8, BUN 14, Creatinine 0.68, Est GFR (MDRD) Af Amer 107, Est GFR (MDRD) Non-Af 89, BUN/Creatinine Ratio 20.6 H, Glucose 115 H, Calcium 8.9, Triglycerides 132, Cholesterol 137, LDL Cholesterol 72, VLDL Cholesterol 26, HDL Cholesterol 39 L 02/02/19 04:34: WBC 8.0, RBC 3.87 L, Hgb 9.9 L, Hct 31.2 L, MCV 80.6 L, MCH 25.6 L, MCHC 31.7 L, RDW 15.2 H, RDW Differential 44.5 H, Plt Count 335, MPV 9.8, Immature Gran % (Auto) 0.400, Neut % (Auto) 60.8, Lymph % (Auto) 27.6, [place] % (Auto) 9.1, Eos % (Auto) 1.7, Baso % (Auto) 0.4, Absolute Neuts (auto) 4.9, Total Counted Not Reportable 02/02/19 04:34: PT 12.7, INR 1.0, APTT 30.0 02/02/19 04:34: Iron 24 L, TIBC 288, Iron Saturation 8.3 L Rhythm: Sinus rhythm EKG: As noted above ECHO: Left ventricle normal with an LVEF of 70%; mild MR/mild TR Stress Test: Procedure: Pharmacologic stress nuclear imaging study Indications: Chest pain; CAD; PCI; CABG Consent: Per the patient Procedure: The patient underwent pharmacologic (Regadenoson) evaluation with a peak heart rate of 101 beats per minute (72% predicted maximal heart rate) and a peak blood pressure of 160/82 mmHg. The baseline ECG demonstrated normal sinus rhythm; incomplete right bundle branch block pattern. The peak pharmacologic ECG demonstrated no obvious ECG changes. There were no cardiac dysrhythmias pretest, during pharmacologic infusion, or recovery. There was no complaint of chest discomfort during pharmacologic infusion or recovery. The examination was discontinued secondary to completion of protocol. Impression: 1. Pharmacologic (Regadenoson) evaluation 2. Peak pharmacologic ECG with no obvious ECG changes. 3. There were no cardiac dysrhythmias pretest, during pharmacologic infusion, or recovery. 4. Nuclear images pending Myocardial perfusion imaging study: Technique: The patient was injected with 11.3 millicuries of technetium 99m Cardiolite and subsequently rest SPECT Cardiolite nuclear imaging was obtained in the horizontal long, vertical long, and short axis views. The patient underwent pharmacologic (Regadenoson) evaluation with a peak heart rate of 101 beats per minute (72 % percent predicted maximal heart rate) and a peak blood pressure of 160/82 mmHg. The patient was injected with 32.6 millicuries of technetium 99m Cardiolite and subsequently stress SPECT Cardiolite nuclear imaging was obtained in the horizontal long, vertical long, and short axis views. A gated Cardiolite study at peak stress was obtained. Interpretation: Rest and stress SPECT Cardiolite nuclear imaging status post realignment, normalization, and attenuation correction demonstrate the appearance of relative uniform tracer uptake/myocardial perfusion at rest. Status post stress there appears to be an area of diminished tracer uptake in portions of the mid towards distal anterolateral segments. There are similar type findings on the resting and stress polar map images.. There is end systolic thickening and brightening. The gated Cardiolite study demonstrates myocardial thickening and inward wall motion. The reported LVEF is 66 %. Impression: 1. Rest and stress SPECT current nuclear imaging demonstrate post stress myocardial perfusion changes concerning for an area of stress-induced myocardial ischemia and portions of the mid to distal anterolateral segments. 2. The gated Cardiolite study reports an LVEF of 66 %. Cardiac Cath: 12-26-13: Left ventricular systolic function considered preserved with an LVEF of 65% Left main coronary arteries no significant stenosis LAD with moderate mid segment stenosis LCx subtotally occluded RCA occluded with the distal vessel filling from left to right collaterals SVG to the diagonal branch patent SVG to the OM branch patent with post stent high-grade stenosis SVG to the RCA occluded PCI: 12-30-13: [facility]: PTCA/stent of the 90% stenosis in the proximal to mid first OM ezpgix-kvvc-jeorhdq CT Surgery: 09-08-1992: [facility]: SVG to the diagonal branch; SVG to the OM branch; SVG to the RCA CXR: Preliminary evaluation: Post open heart surgery changes: No acute cardiopulmonary disease process appreciated: Please see official report Assessment/Plan 1. Non-ST segment elevation SD The patient has symptoms, abnormal troponin I levels, etc., concerning for an acute non-ST segment elevation SD. At the present time she appears to be symptomatically improved. She is undergone additional noninvasive studies which have included a follow-up transthoracic echocardiogram and a pharmacologic stress nuclear imaging study to evaluate her coronary physiology/ischemic burden. Her transthoracic echocardiogram demonstrated her overall LV systolic function to be preserved. Her pharmacologic stress nuclear imaging study suggested an area of stress-induced myocardial ischemia involving portions of the anterolateral distribution. At the present time she will continue medical management. This will include agents such as aspirin, antiplatelets, nitrates, beta-blockers, and lipid- lowering agents. Anticoagulants can be used as deemed appropriate. She should be considered for further evaluation with diagnostic cardiac catheterization. The procedure and risks were discussed with her. She was agreeable to this approach. Depending upon her findings she may or may not need additional medical management and/or percutaneous-based revascularization therapy. 2. Angina pectoris: Unstable The patient presented with what she described as nonexertional symptoms compatible with an unstable angina pectoris. She has been found to have abnormal cardiac markers and findings as noted above. The present time she does appear to be symptomatically improved. Thus she will continue medical management and further evaluation and care. 3. CAD status post PCI status post CABG The patient has a history of both having PCI and CABG in the past. The present time there be concern of the nature of her underlying [place] vessels as well as her graft vessels based upon her symptoms and objective findings. Thus she will continue medical management and be considered for further evaluation with diagnostic cardiac catheterization. 4. Hyperlipidemia The patient will continue lipid-lowering therapy. 5. Hypertension The blood pressure should be monitored. Her antihypertensive therapy can be adjusted as needed. 6. Diabetes mellitus She will continue under the care of internal medicine. 7. Anemia The patient does have anemia. Apparently she has a history of a gastrointestinal bleeding process. At the moment she appears to be without any acute hemorrhagic events. She is receiving iron supplementation. She will need to be monitored as her medications with respect to antiplatelet and anticoagulant therapy, are adjusted with respect to the concern of any obvious future hemorrhagic related issues. Comment: Patient's case has been discussed and reviewed with the patient. She was agreeable to this approach. This note was generated with Xentionation software. It may contain incorrect words, spelling, and punctuation that were not noted in checking the note before signing.
--- NOTE | 2019-02-02 14:33 | CASEMGMT ---
Insurance Review for In-network facilities for MMO MCR insurance if transfer is recommended: [facility], [facility], [facility], , [facility], [facility], [place]. Mone MARADIAGAN RN CM
--- NOTE | 2019-02-02 15:00 | CASEMGMT ---
MARAH RIVAS NOTE: To room to talk with pt. Pt resting in bed, awake/alert/oriented. Reviewed VACA form with pt and questions answered. Denies having any further questions. VACA formed signed by pt, copy made and placed on chart, and original given to pt. Mone MARADIAGAN RN CM
[2019-02-02] MEDS: Clopidogrel Bisulfate 300 MG Tablet PO (15:14)
[2019-02-02] MEDS: Atorvastatin Calcium 20 MG Tablet 40 MG PO (21:44)
[2019-02-03] VITALS (22 sets, daily range): BP systolic 92–179; BP diastolic 44–92; PULSE 71–97; RESP 12–25; TEMP 36.1–37; O2SAT 92–100; BMI 27.8
[2019-02-03 03:21] LABS: Bedside Glucose 183 mg/dL (70-110)
[2019-02-03 04:37] LABS: Color, Urine Yellow (Yellow); Glucose, Dipstick Normal (Normal); Ketone-Dipstick Negative (Negative); Leukocyte Esterase-Dipstick Negative /ul (Negative); Nitrite-Dipstick Negative (Negative); Occult Blood-Urine Negative /ul (Negative); Protein-Dipstick Negative (Negative); Specific Gravity, Urine 1.015 (1.002-1.030); Urine Bilirubin Dipstick Negative (Negative); Urine Clarity Clear (Clear); Urine Urobilinogen Normal (Normal)
[2019-02-03 05:49] LABS: Absolute Lymphocyte Count 1.66 X10^3/ul (0.83-4.51); Absolute Neutrophil Count 4.2 X10^3/uL (2.0-7.7); Anion Gap 8 (5-15); BUN 11 mg/dL (7-18); Basophil# 0.02 X10^3/uL; Basophil% 0.3 % (0-1); Calcium,Total 9.3 mg/dL (8.5-10.1); Chloride 109 mmol/L (98-107); Creatinine, Serum 0.73 mg/dL (0.55-1.02); EST Glomerular Filtration Rate 81 mL/min (>60); Eosinophils% 1.5 % (0-5); Est Glom Filt Rate - Afr Amer 98 mL/min (>60); Glucose 107 mg/dL (74-106); Hematocrit 32.6 % (37-47); Hemoglobin 10.4 g/dl (12.0-15.0); Lymphocyte # 1.66 X10^3/ul (4.0); Lymphocyte % 25.3 % (19-41); Mean Corp Hgb Conc 31.9 g/gl (32-36); Mean Corpuscular Hgb 25.4 pg (27.0-32.0); Mean Corpuscular Volume 79.5 fL (81-99); Mean Platelet Vol. 10.6 fl (6.2-12.0); Monocyte# 0.54 X10^3/uL; Monocyte% 8.2 % (0-10); Neutrophil # 4.21 X10^3/uL (2.7-7.7); Neutrophil % 64.4 % (47-70); Platelet Count 378 K/mm3 (150-450); Potassium 3.5 mmol/L (3.5-5.1); RBC Distribution Width CV 15.1 % (11.6-14.6); RBC Distribution Width SD 42.8 fl (35.1-43.9); Sodium Level 143 mmol/L (136-145); White Blood Count 6.6 K/mm3 (4.4-11.0)
[2019-02-03 05:50] LABS: International Normalized Ratio 1.1; Partial Thromboplast Time 33.2 Seconds (24.1-36.2); Prothrombin Time (Protime)PT. 13.9 SECONDS (11.7-14.9)
[2019-02-03 05:51] LABS: POSITIVE COUNT NO; POSITIVE DIFFERENTIAL NO; POSITIVE MORPHOLOGY NO
[2019-02-03] MEDS: Levothyroxine 137 MCG Tablet PO (05:55)
[2019-02-03] MEDS: Aspirin 81 MG TAB.CHEW PO (05:55)
--- NOTE | 2019-02-03 05:55 | EKG12_ITS ---
Test Reason : AM EKG Blood Pressure : / mmHG Vent. Rate : 092 BPM Atrial Rate : 092 BPM P-R Int : 130 ms QRS Dur : 094 ms QT Int : 384 ms P-R-T Axes : 013 -40 078 degrees QTc Int : 474 ms Normal sinus rhythm Left axis deviation Incomplete right bundle branch block Abnormal ECG When compared with ECG of 02-FEB-2019 05:32, MANUAL COMPARISON REQUIRED, DATA IS UNCONFIRMED Confirmed by PRIYANKA JOHNSON ([id number]), editor in chief SAMIA NATH ([id number]) on 02/08/2019 2:26:50 PM Referred By: DR JEWELL Confirmed By:МАРИНА JOHNSON
[2019-02-03] MEDS: Metoprolol(XL)Succ 50 MG Tablet PO (05:56)
[2019-02-03] MEDS: Losartan Potassium 50 MG Tablet PO (05:56)
[2019-02-03] MEDS: Clopidogrel Bisulfate 75 MG Tablet PO (05:56)
[2019-02-03] MEDS: Isosorbide Mononitrate 30 MG Tablet PO (05:56)
[2019-02-03] MEDS: 0.9% NaCl Peripheral Flush Adult/Peds IV (06:15)
[2019-02-03 06:35] LABS: Bedside Glucose 102 mg/dL (70-110)
--- NOTE | 2019-02-03 07:54 | PCM.PN.CARD ---
Subjectve: Patient seen and evaluated. Appears to be doing well. Objective: Vital Signs Temp Pulse Resp BP Pulse Ox 98.6 F 94 20 H 179/92 H 96 02/03/19 05:50 02/03/19 05:56 02/03/19 05:50 02/03/19 05:50 02/03/19 05:50 Oxygen Delivery Method Room Air Weight: 162 lb 11.218 oz Body Mass Index (BMI) 27.9 Intake and Output for Last 24 Hours 02/01/19 02/02/19 02/03/19 23:59 23:59 23:59 Intake Total 480 / 480 1340 / 1340 40 / 40 Balance 480 / 480 1340 / 1340 40 / 40 General: Awake, Alert, Oriented x 3 HEENT: PERRL, EOMI, Sclera Non Icteric Neck: Supple, Good ROM, No Lymph Node Enlargement Lungs: Clear to auscultation Cardiovascular: Regular Rhythm, Normal S1, Normal S2, No Murmurs, No Rubs, No Gallops Vascular: No Carotid Bruits, Normal Femoral Pulses, Normal Radial Pulses, Normal Dorsalis Pedal Pulse, Normal Posterior Tibial Pulses Abdomen: Bowel Sounds Present, Soft, Non Tender, No HSM, No Organomegaly Extremities: No Cyanosis, No Clubbing, No edema Musculoskeletal: No Erythema Skin: No Rashes Lymphatic: No Lymph Node Enlargement Neurological: No Focal Motor or Sensory Deficit Psych/Mental Status: Appropriate 02/02/19 04:34: Iron 24 L, TIBC 288, Iron Saturation 8.3 L 02/03/19 04:08: Urine Color Yellow, Urine Clarity Clear, Urine pH 8.0, Ur Specific [place] 1.015, Urine Protein Negative, Urine Glucose (UA) Normal, Urine Ketones Negative, Urine Occult Blood Negative, Urine Nitrite Negative, Urine Bilirubin Negative, Urine Urobilinogen Normal, Ur Leukocyte Esterase Negative 02/03/19 05:10: Sodium 143, Potassium 3.5, Chloride 109 H, Carbon Dioxide 26.0, Anion Gap 8, BUN 11, Creatinine 0.73, Est GFR (MDRD) Af Amer 98, Est GFR (MDRD) Non-Af 81, BUN/Creatinine Ratio 15.0, Glucose 107 H, Calcium 9.3, Troponin I 0.331 H 02/03/19 05:10: WBC 6.6, RBC 4.10 L, Hgb 10.4 L, Hct 32.6 L, MCV 79.5 L, MCH 25.4 L, MCHC 31.9 L, RDW 15.1 H, RDW Differential 42.8, Plt Count 378, MPV 10.6, Immature Gran % (Auto) 0.300, Neut % (Auto) 64.4, Lymph % (Auto) 25.3, [place] % (Auto) 8.2, Eos % (Auto) 1.5, Baso % (Auto) 0.3, Absolute Neuts (auto) 4.2, Total Counted Not Reportable 02/03/19 05:10: PT 13.9, INR 1.1, APTT 33.2 Rhythm: EKG: ECHO: Stress Test: Cardiac Cath: PCI: CT Surgery: Holter monitor: EPS: PPM: CXR: Chest CT Scan: Medical Necessity - Tobacco Use Smoking Status: Former smoker Tobacco Use: Cigarettes Assessment/Plan 1. Non-ST segment elevation VT The patient has symptoms, abnormal troponin I levels, etc., concerning for an acute non-ST segment elevation VT. At the present time she appears to be symptomatically improved. Cardiac catheterization today demonstrated high-grade stenosis noted in the saphenous vein graft to the diagonal branch. The previously placed stents in the saphenous vein graft to circumflex artery were patent. The left anterior descending artery had moderate mid segment disease, the circumflex artery was subtotally occluded, and the right coronary artery was separately occluded with left to right distal collaterals. The ejection fraction was preserved. Based on the above angiographic findings the patient would be undergoing angioplasty of the saphenous vein graft to the diagonal vessel. 2. Angina pectoris: Unstable The patient presented with what she described as nonexertional symptoms compatible with an unstable angina pectoris. She has been found to have abnormal cardiac markers and findings as noted above. The present time she does appear to be symptomatically improved. Thus she will continue medical management and further evaluation and care. 3. CAD status post PCI status post CABG The patient has a history of both having PCI and CABG in the past. The present time there be concern of the nature of her underlying [place] vessels as well as her graft vessels based upon her symptoms and objective findings. Thus she will continue medical management and be considered for further evaluation with diagnostic cardiac catheterization. 4. Hyperlipidemia The patient will continue lipid-lowering therapy. 5. Hypertension The blood pressure should be monitored. Her antihypertensive therapy can be adjusted as needed. Thank you for allowing me to participate in the care of your patient. Please don't hesitate to call if any issues arise
--- NOTE | 2019-02-03 08:00 | PN.CARD_ITS ---
Subjectve: Patient seen and evaluated. Appears to be doing well. Objective: Vital Signs Temp Pulse Resp BP Pulse Ox 98.6 F 94 20 H 179/92 H 96 02/03/19 05:50 02/03/19 05:56 02/03/19 05:50 02/03/19 05:50 02/03/19 05:50 Oxygen Delivery Method Room Air Weight: 162 lb 11.218 oz Body Mass Index (BMI) 27.9 Intake and Output for Last 24 Hours 02/01/19 02/02/19 02/03/19 23:59 23:59 23:59 Intake Total 480 / 480 1340 / 1340 40 / 40 Balance 480 / 480 1340 / 1340 40 / 40 General: Awake, Alert, Oriented x 3 HEENT: PERRL, EOMI, Sclera Non Icteric Neck: Supple, Good ROM, No Lymph Node Enlargement Lungs: Clear to auscultation Cardiovascular: Regular Rhythm, Normal S1, Normal S2, No Murmurs, No Rubs, No Gallops Vascular: No Carotid Bruits, Normal Femoral Pulses, Normal Radial Pulses, Normal Dorsalis Pedal Pulse, Normal Posterior Tibial Pulses Abdomen: Bowel Sounds Present, Soft, Non Tender, No HSM, No Organomegaly Extremities: No Cyanosis, No Clubbing, No edema Musculoskeletal: No Erythema Skin: No Rashes Lymphatic: No Lymph Node Enlargement Neurological: No Focal Motor or Sensory Deficit Psych/Mental Status: Appropriate 02/02/19 04:34: Iron 24 L, TIBC 288, Iron Saturation 8.3 L 02/03/19 04:08: Urine Color Yellow, Urine Clarity Clear, Urine pH 8.0, Ur Specific [place] 1.015, Urine Protein Negative, Urine Glucose (UA) Normal, Urine Ketones Negative, Urine Occult Blood Negative, Urine Nitrite Negative, Urine Bilirubin Negative, Urine Urobilinogen Normal, Ur Leukocyte Esterase Negative 02/03/19 05:10: Sodium 143, Potassium 3.5, Chloride 109 H, Carbon Dioxide 26.0, Anion Gap 8, BUN 11, Creatinine 0.73, Est GFR (MDRD) Af Amer 98, Est GFR (MDRD) Non-Af 81, BUN/Creatinine Ratio 15.0, Glucose 107 H, Calcium 9.3, Troponin I 0.331 H 02/03/19 05:10: WBC 6.6, RBC 4.10 L, Hgb 10.4 L, Hct 32.6 L, MCV 79.5 L, MCH 25.4 L, MCHC 31.9 L, RDW 15.1 H, RDW Differential 42.8, Plt Count 378, MPV 10.6, Immature Gran % (Auto) 0.300, Neut % (Auto) 64.4, Lymph % (Auto) 25.3, [place] % (Auto) 8.2, Eos % (Auto) 1.5, Baso % (Auto) 0.3, Absolute Neuts (auto) 4.2, Total Counted Not Reportable 02/03/19 05:10: PT 13.9, INR 1.1, APTT 33.2 Rhythm: EKG: ECHO: Stress Test: Cardiac Cath: PCI: CT Surgery: Holter monitor: EPS: PPM: CXR: Chest CT Scan: Medical Necessity - Tobacco Use Smoking Status: Former smoker Tobacco Use: Cigarettes Assessment/Plan 1. Non-ST segment elevation AR The patient has symptoms, abnormal troponin I levels, etc., concerning for an acute non-ST segment elevation AR. At the present time she appears to be symptomatically improved. Cardiac catheterization today demonstrated high-grade stenosis noted in the saphenous vein graft to the diagonal branch. The previously placed stents in the saphenous vein graft to circumflex artery were patent. The left anterior descending artery had moderate mid segment disease, the circumflex artery was subtotally occluded, and the right coronary artery was separately occluded with left to right distal collaterals. The ejection fraction was preserved. Based on the above angiographic findings the patient would be undergoing angiopl asty of the saphenous vein graft to the diagonal vessel. 2. Angina pectoris: Unstable The patient presented with what she described as nonexertional symptoms compatible with an unstable angina pectoris. She has been found to have abnormal cardiac markers and findings as noted above. The present time she does appear to be symptomatically improved. Thus she will continue medical management and further evaluation and care. 3. CAD status post PCI status post CABG The patient has a history of both having PCI and CABG in the past. The present time there be concern of the nature of her underlying [place] vessels as well as her graft vessels based upon her symptoms and objective findings. Thus she will continue medical management and be considered for further evaluation with diagnostic cardiac catheterization. 4. Hyperlipidemia The patient will continue lipid-lowering therapy. 5. Hypertension The blood pressure should be monitored. Her antihypertensive therapy can be adjusted as needed. Thank you for allowing me to participate in the care of your patient. Please don't hesitate to call if any issues arise
--- NOTE | 2019-02-03 08:07 | CL.D_ITS ---
Patient Name: ENDER ALVES Study Date: 02/03/2019 Performing: Robert Bonilla MD Ht: 64.17 inches 163 cm : 1935 Wt: 163.14 lbs 74 kg Age: 83 Gender: female BSA: 1.8 PROCEDURE(S) PERFORMED XV86-JES/COR/LV/CABG [id number] AND/OR PTCA, SINGLE GRAFT CLINICAL PROFILE AND INDICATIONS Indications: Worsening Angina Heart Failure: None Stress/Imaging Date: 02/02/2019Stress Test with SPECT MPI: Positive Intermediate Risk CONCLUSIONS Normal left main coronary artery disease, left anterior descending artery with moderate disease, tota lly occluded circumflex artery, totally occluded right coronary artery with [id number] collaterals , saphenous vein graft to the diagonal vessel with high-grade stenosis, saphenous vein graft to the o btuse marginal branch patent, saphenous vein graft to the right coronary artery totally occluded. RECOMMENDATIONS Referred for immediate PCI DESCRIPTION OF PROCEDURE The patient arrived to the procedure lab. The risks and benefits of the procedure as well as a full d escription of our services here and current unavailability of surgical backup were fully explained to the patient and/or their significant other prior to the catheterization. The Timeout was completed, verifying the correct patient and procedure. The patient's procedural site was prepped and draped in the usual fashion. Local anesthetic was given subcutaneously to right groin region with Lidocaine 2%. Using a modified Seldinger technique, arterial access was obtained via the right femoral artery, a 5 Fr sheath was inserted. Left Coronary Artery selective angiography was performed in multiple views u sing a 5 Fr. JL4 catheter. Right Coronary Artery selective angiography was then performed in multiple views using a 5 Fr. 3DRC (Manjinder) catheter. Saphenous Vein graft to the OM selective angiography w as performed in multiple views using a 5 Fr. 3DRC (Manjinder) catheter. Saphenous Vein graft to the DIAG 1 selective angiography was performed in multiple views using a 5 Fr. 3DRC (Noe garcia) catheter. CORONARY ANGIOGRAPHY DOMINANCE: Right Dominant LEFT HEART ASSESSMENT Left Ventricular Ejection Fraction: by LV Gram 65 % Normal Left Ventricular systolic function LEFT MAIN: Mild calcification, No significant disease noted LEFT ANTERIOR DECENDING ARTERY: MID LAD: Moderate luminal irregularities up to 50% CIRCUMFLEX ARTERY: MID CIRC: Severe diffuse disease RIGHT CORONARY ARTERY: MID RCA: is occluded GRAFTS: Saphenous Vein graft to the RCA is totally occluded Saphenous Vein graft to the 1st OM previously placed stent has an instent restenosis of 20 % Saphenous Vein graft to the 1st Diagonal has a proximal lesion of 90 % COLLATERAL FLOW: Collateral flow from Left to Right COMPLICATIONS PROCEDURE MEDICATIONS Versed 1 mg IV Versed 1 mg IV Oxygen: 2 L/min via nasal cannula Heparin 6000 unit(s) IV 02/03/2019 08:02:34 Nitro 200 mcg IC 02/03/2019 08:03:50 SUMMARY OF HEMODYNAMIC DATA Time AIR REST ECG 07:25:18 AO 146/63 (96) SA 07:35:27 LV 151/5, 14 07:47:38 LV 163/7, 17 07:47:44 LV 156/-2, 19 07:48:43 LV 173/-2, 20 07:48:49 LVp 167/-2, 19 07:48:53 AOp 163/62 (102) 07:48:59 Signed By Robert Bonilla MD On 02/03/2019 08:07:01 Robert Bonilla MD
--- NOTE | 2019-02-03 08:53 | CL.I_ITS ---
Patient Name: ENDER ALVES Study Date: 02/03/2019 Performing: Ned Cuevas MD Ht: 64.17 inches 163 cm : 1935 Wt: 163.14 lbs 74 kg Age: 83 Gender: female BSA: 1.8 PROCEDURE(S) PERFORMED [id number] AND/OR PTCA, SINGLE GRAFT CLINICAL PROFILE AND CO-MORBIDITIES Indications: Worsening Angina, ACS <= 24 hrs, Stable Known CAD Heart Failure: None Stress/Imaging Date: 02/02/2019 Stress Test with SPECT MPI: Positive Intermediate RiskStress/Image Study Performed: No CAD Presentations: Unstable angina. Non-STEMI. Symptom onset Date/Time: 02/03/2019 Time Not Availa ble Comorbidities/Risk Factors: Hypertension Dyslipidemia Prior PCI Prior CABG CONCLUSIONS Successful PTCA/JESSICA SVG to DIAG#1 utilizing filter wire with a 2.5 x 16 Promus Synergy, post dilated with a 2.5 x 12 NC and a 3.0 x 8 NC balloon; 85%-->0%, no dissection. RECOMMENDATIONS Highly recommend quitting all tobacco products Follow up with primary director biostatistics Risk factor modification ASA Indefinitley Plavix for at least 12 months Routine post interventional care Refer for Outpatient Cardiac Rehab Manual sheath removal per protocol Follow up with Dr. Quarles Successful Mynx closure of RFA. DESCRIPTION OF PROCEDURE The patient arrived to the procedure lab. The risks and benefits of the procedure as well as a full d escription of our services here and current unavailability of surgical backup were fully explained to the patient and/or their significant other prior to the catheterization. The Timeout was completed, verifying the correct patient and procedure. The patient's procedural site was prepped and draped in the usual fashion. Local anesthetic was given subcutaneously to right groin region with Lidocaine 2% Using a modified Seldinger technique,arterial access was obtained via the right femoral artery, a 5Fr sheath was inserted. Left Coronary Artery selective angiography was performed in multiple views usin g a 5 Fr. JL4 catheter. Right Coronary Artery selective angiography was then performed in multiple vi ews using a 5 Fr. 3DRC (Manjinder) catheter. Saphenous Vein graft to the OM selective angiography was performed in multiple views using a 5 Fr. 3DRC (Manjinder) catheter. Saphenous Vein graft to the DIAG 1 selective angiography was performed in multiple views using a 5 Fr. 3DRC (Manjinder) cat heter.The images were reviewed and options discussed. A decision was then made to proceed with an Int ervention, IVUS or other adjunct procedure. Arterial sheath was exchanged for a 6 Fr Sheath. HS II Guide catheter was inserted and engaged in to the SVG to the 1st Diagonal. [employer] Guide wire was advanced to the SVG to the Diag. Emerge 2.0 x 8 Balloon catheter was inserted. Angiogram performed pre balloon dilatation. PTCA balloon infla anthony at 6 atms for 6 secs. PTCA balloon inflated at 6 atms for 8 secs. Synergy 2.5 x 16 Drug Eluting s tent was inserted. Drug Eluting stent was advanced across the lesion in the graft SVG to the 1st Diag onal. Angiogram performed pre stent deployment. NC Emerge 2.5 x 12 Balloon catheter was inserted. Ang iogram performed post stent deployment. Balloon catheter was advanced across lesion in the graft SVG to the 1st Diagonal. Angiogram performed pre balloon dilatation. NC Emerge 3.0 x 8 Balloon catheter w as inserted. Angiogram performed pre balloon dilatation. Balloon catheter was advanced across lesion in the graft SVG to the 1st Diagonal. Angiogram performed post balloon dilatation. Angiogram performed post balloon dilatation. Contrast was injected through the sheath and the Right I liac and Femoral artery were assessed for possible closure device. The arterial sheath was pulled an d a Mynx closure device was deployed for hemostasis INTERVENTION INFORMATION LESION SITE: Vein > to 1st Diagonal Segment Number: 15-First diagonal branch segment - 1st Diag , [place] Location: Mid Lesion Complexity: High/C, lesion at bifurcation: No, thrombus present: No, lesion length: 16 mm, cul prit lesion: Yes Pre Stenosis: 85 % Pre intervention GRACIE flow: 3 PROCEDURE: Drug Eluting Stent with pre and post dilatation Post Stenosis: 0 % Post intervention GRACIE flow: 3 Lesion Devices: Medtronic 6 Fr HSII 100cm Guide Catheter [place] .014 [employer] Straight 190cm Corey Sci EMERGE MR 2.00x08 BALLOON Corey Sci Small Vessel 2.25-3.5 Filter Wire 190cm Corey Sci Synergy MR JESSICA 2.50x16 Corey Sci NC EMERGE MR 2.50x12 BALLOON Corey Sci NC EMERGE MR 3.00x08 BALLOON COMPLICATIONS No Complications PROCEDURE MEDICATIONS Versed 1 mg IV Versed 1 mg IV Fentanyl 25 mcg IV Fentanyl 25 mcg IV Oxygen: 2 L/min via nasal cannula Heparin 6000 unit(s) IV 02/03/2019 08:02:34 Nitro 200 mcg IC 02/03/2019 08:03:50 Nifedipine 100 mg 02/03/2019 08:07:37 Nifedipine 100 mg 02/03/2019 08:14:36 Nitro 300 mcg IC 02/03/2019 08:20:51 Nitro glycerin 25mg / 250ml D5W @ 5 mcg/min IV started 02/03/2019 08:21:03 Nitro 300 mcg IC 02/03/2019 08:25:02 Nitro 300 mcg IC 02/03/2019 08:31:00 Nitro glycerin 25mg / 250ml D5W @ 10 mcg/min (increased rate) 02/03/2019 08:42:53 IV Bolus: .9 NaCl 800 ml total 02/03/2019 08:26:53 IV Fluids: .9 NaCl decreased to 150 ml/hr 02/03/2019 08:27:04 SUMMARY OF HEMODYNAMIC DATA Time AIR REST ECG 07:25:18 AO 146/63 (96) SA 07:35:27 LV 151/5, 14 07:47:38 LV 163/7, 17 07:47:44 LV 156/-2, 19 07:48:43 LV 173/-2, 20 07:48:49 LVp 167/-2, 19 07:48:53 AOp 163/62 (102) 07:48:59 Signed By Ned Cuevsa MD On 02/03/2019 13:48:54 Ned Cuevas MD
--- NOTE | 2019-02-03 09:28 | EKG12_ITS ---
Test Reason : AM EKG Blood Pressure : / mmHG Vent. Rate : 088 BPM Atrial Rate : 088 BPM P-R Int : 124 ms QRS Dur : 090 ms QT Int : 376 ms P-R-T Axes : 016 -11 067 degrees QTc Int : 454 ms Normal sinus rhythm Normal ECG When compared with ECG of 03-FEB-2019 09:13, MANUAL COMPARISON REQUIRED, DATA IS UNCONFIRMED Confirmed by PRIYANKA JOHNSON ([id number]), digital editor SAMIA NATH ([id number]) on 02/08/2019 2:29:52 PM Referred By: KERRIE Confirmed By:МАРИНА JOHNSON
[2019-02-03 09:56] LABS: ACT Activated Clotting Time 191 sec (74-137)
[2019-02-03] MEDS: 0.9% Normal Saline 1,000 ML 150 ML IV (10:00)
--- NOTE | 2019-02-03 10:00 | EKG12_ITS ---
Test Reason : POST PCI Blood Pressure : / mmHG Vent. Rate : 083 BPM Atrial Rate : 083 BPM P-R Int : 128 ms QRS Dur : 094 ms QT Int : 402 ms P-R-T Axes : 031 -24 073 degrees QTc Int : 472 ms Sinus rhythm with marked sinus arrhythmia with occasional Premature ventricular complexes Otherwise normal ECG When compared with ECG of 03-FEB-2019 06:03, MANUAL COMPARISON REQUIRED, DATA IS UNCONFIRMED Confirmed by PRIYANKA JOHNSON ([id number]), makeup editor SAMIA NATH ([id number]) on 02/08/2019 2:31:40 PM Referred By: DR. RIGGS Confirmed By:МАРИНА JOHNSON
--- NOTE | 2019-02-03 11:25 | CASEMGMT ---
RN EVELYN PREPARATION PLANT REPAIRER CM to room to meet with patient for initial transition planning/care coordination assessment. MARAH RIVAS introduced self and role at [facility]. Pt voices understanding and consents to assessment at this time. Pt resting in bed in no distress at this time. Daughters @ bedside. Pt is A/O at this time and answers all questions appropriately. Care providers, pharmacy, and demographics verified/updated at this time. PCP: Zane Specialists: Jayant--alternative financing specialist @ [facility]. Preferred Pharmacy: [facility] Insurance: MMO [facility] Prescription Benefit: Yes Living Will/HPOA: Has both LW and HCPOA, who are her daughters, Michelle and Blanca. LNOK: Daughters Michelle and Blanca Living Arrangements: Lives alone in one-story home. No stairs to enter. Independent with ADL's and home mgmt tasks but pt/daughters inquiring about what pt may qualify for for assistance in the home for things such chores/home mgmt tasks. SW, Carri, notified. Pt states she had Meals on Wheels in the past but for only about a week. Stated she did not like them. Transportation: Pt states drives self and states no transportation concerns at this time. Daughters can drive pt home on d/c. DME: States has the following DME: rails/grab bars, hand held shower, cane. Pt states no need for further DME at this time. HHC/SNF: No history of SNF or HHC. Denies needs for HHC. States has been to [facility] in the past. Pt wishes to return home and states has no concerns with going home at time of discharge. CM to follow for discharge planning/needs. Pt and daughters voice no further concerns/needs at this time. Advised pt to ask for CM if any further questions/concerns/needs arise. Voices understanding. PLAN: Home w/support of daughters and discharge plans in place. Mone CLEANING RN, CM
--- NOTE | 2019-02-03 13:32 | PCM.PN.HOSP ---
Patient Problems: Active and Suspected Problems (Last Reviewed 12/21/18 @ 10:34 by Ana Dupont) Atypical chest pain (Acute) Lower extremity edema (Acute) Angina pectoris (Acute) NSTEMI (non-ST elevated myocardial infarction) (Acute) Subjective: Patient had cardiac cath today. Was found 85% stenosis of SVG to diagonal 1 for which PCI was done Vitals/I&O's: Vital Signs Temp Pulse Resp BP Pulse Ox 97 F L 77 12 124/78 H 96 02/03/19 09:15 02/03/19 10:15 02/03/19 10:15 02/03/19 10:15 02/03/19 10:15 Oxygen Flow Rate (L/min) 2 Oxygen Delivery Method Room Air Weight: 162 lb 11.218 oz Body Mass Index (BMI) 27.9 Intake and Output for Last 24 Hours 02/01/19 02/02/19 02/03/19 23:59 23:59 23:59 Intake Total 480 / 480 1340 / 1340 40 / 40 Balance 480 / 480 1340 / 1340 40 / 40 General: Alert, Oriented x3, Cooperative HEENT: Atraumatic, PERRLA, EOMI, Normocephalic Neck: Supple, No JVD, Negative Carotid Bruits Lungs: Clear to auscultation, Normal air movement, No rhonchi, No wheeze, No rales Cardiovascular: Regular rate, Regular Rhythm, Normal S1, Normal S2, No murmurs Abdomen: Bowel Sounds Present, Soft, Non Tender, Non-Distended Extremities: Capillary Refill Less than 3 Seconds, Edema Skin: No rashes, No breakdown Musculoskeletal: No Tenderness to Palpation of Joints or Extremities, Arthritic Changes Neurological: Cranial nerves II-XII grossly intact, Deep Tendon Reflexes 2+/4 and Symmetrical, Neuro grossly intact Psych/Mental Status: Normal Affect, Appropriate Microbiology Past 72 Hours 02/02/19 23:55 Stool Stool Occult Blood (HUBERT) - Final Laboratory Results 02/02/19 21:42: POC Glucose 183 H 02/03/19 04:08: Urine Color Yellow, Urine Clarity Clear, Urine pH 8.0, Ur Specific [place] 1.015, Urine Protein Negative, Urine Glucose (UA) Normal, Urine Ketones Negative, Urine Occult Blood Negative, Urine Nitrite Negative, Urine Bilirubin Negative, Urine Urobilinogen Normal, Ur Leukocyte Esterase Negative 02/03/19 05:10: Sodium 143, Potassium 3.5, Chloride 109 H, Carbon Dioxide 26.0, Anion Gap 8, BUN 11, Creatinine 0.73, Estim Creat Clear Calc 38.10, Est GFR (MDRD) Af Amer 98, Est GFR (MDRD) Non-Af 81, BUN/Creatinine Ratio 15.0, Glucose 107 H, Calcium 9.3, Troponin I 0.331 H 02/03/19 05:10: WBC 6.6, RBC 4.10 L, Hgb 10.4 L, Hct 32.6 L, MCV 79.5 L, MCH 25.4 L, MCHC 31.9 L, RDW 15.1 H, RDW Differential 42.8, Plt Count 378, MPV 10.6, Immature Gran % (Auto) 0.300, Neut % (Auto) 64.4, Lymph % (Auto) 25.3, [place] % (Auto) 8.2, Eos % (Auto) 1.5, Baso % (Auto) 0.3, Absolute Neuts (auto) 4.2, Absolute Lymphs (auto) 1.66, Total Counted Not Reportable 02/03/19 05:10: PT 13.9, INR 1.1, APTT 33.2 02/03/19 06:18: POC Glucose 102 02/03/19 08:30: Activated Clotting Time 191 H Current Medications Acetaminophen (Tylenol) 650 mg PO Q6H PRN PRN PRN Reason: Mild Pain (0-2/10) Hydrocodone Bitart/Acetaminophen ([place] 5mg-325mg) 0.5 tablet PO BID PRN PRN PRN Reason: PAIN Last Admin: 02/01/19 22:15 Dose: 0.5 tablet Aspirin (Aspirin, Baby) 81 mg PO DAILY@0800 [facility] Last Admin: 02/03/19 05:55 Dose: 81 mg Atorvastatin Calcium (Lipitor) 40 mg PO QHS [facility] Last Admin: 02/02/19 21:44 Dose: 40 mg Atropine Sulfate () 0.5 mg IV UD PRN PRN Reason: HR <50 bpm Clopidogrel Bisulfate (Plavix) 75 mg PO DAILY [facility] Last Admin: 02/03/19 05:56 Dose: 75 mg Furosemide (Lasix) 40 mg PO DAILY [facility] Last Admin: 02/02/19 09:50 Dose: 40 mg Heparin Sodium (Beef Lung) (Heparin 500 Unit/5 Ml (100/Ml)) 500 unit IV UD PRN PRN Reason: HEPARIN FLUSH Hydralazine HCl (Apresoline Iv) 10 mg IV Q4H PRN PRN PRN Reason: SBP>180 Last Admin: 02/01/19 17:05 Dose: 10 mg Sodium Chloride () 250 mls @ 15 mls/hr IV .[id number] PRN PRN Reason: SALINE FLUSH Sodium Chloride () 500 mls @ 15 mls/hr IV .[id number] PRN PRN Reason: SALINE FLUSH Sodium Chloride () 1,000 mls @ 150 mls/hr IV .[id number] [facility] Stop: 02/03/19 16:07 Nitroglycerin/Dextrose () 250 mls @ 3 mls/hr IV .[id number] [facility] Insulin Glargine (Lantus (Bkc)) 30 units SC QHS [facility] Last Admin: 02/02/19 21:43 Dose: 30 u Isosorbide Mononitrate (Imdur) 30 mg PO QAM [facility] Last Admin: 02/03/19 05:56 Dose: 30 mg Labetalol HCl (Trandate) 5 mg IV X1 PRN PRN Reason: SBP > 160 when pulling sheath Levothyroxine Sodium (Synthroid) 137 mcg PO DAILY@0600 [facility] Last Admin: 02/03/19 05:55 Dose: 137 mcg Lorazepam (Ativan) 1 mg PO Q6H PRN PRN PRN Reason: BACK SPASMS/ANXIETY Losartan Potassium (Cozaar) 50 mg PO DAILY [facility] Last Admin: 02/03/19 05:56 Dose: 50 mg Metoclopramide HCl (Reglan) 5 mg IV Q6H PRN PRN Reason: NAUSEA/VOMITING Metoprolol Succinate (Toprol Xl (Beta Antwon)) 50 mg PO DAILY [facility] Last Admin: 02/03/19 05:56 Dose: 50 mg Morphine Sulfate () 2 mg IV Q4H PRN PRN PRN Reason: Mild back pain (0-2/10) Nitroglycerin (Nitrostat) 0.4 mg SUBLINGUAL Q5M PRN PRN Reason: Chest Pain Polysaccharide [facility] ([facility]rex 150[facility] Potassium Chloride (K-Dur) 20 meq PO TIDCM [facility]ARRY Last Admin: 02/02/19 18:49 Dose: 20 meq Sodium Chloride () 5 - 15 ml IV UD PRN PRN Reason: SALINE FLUSH Last Admin: 02/03/19 06:15 Dose: 10 ml Sodium Chloride () 500 ml IV BOLUS PRN PRN Reason: VASO-VAGAL PROTOCOL Medical Necessity - Tobacco Use Smoking Status: Former smoker Tobacco Use: Cigarettes Assessment/Plan All Active Problems (Last Reviewed 12/21/18 @ 10:34 by Ana Dupont) Atypical chest pain (Acute) Lower extremity edema (Acute) Angina pectoris (Acute) NSTEMI (non-ST elevated myocardial infarction) (Acute) Intractable back pain (Acute) Acute right lumbar radiculopathy (Acute) Legionella pneumonia (Resolved) Sepsis (Resolved) Pneumonia (Resolved) The patient is a 83 year old F with history of coronary artery disease status post three-vessel CABG and 7 stent last [place]/stent about 5 years ago was admitted with chest pain mild exertion total 2 episodes on 2 consecutive days consistent with unstable angina. This lasted for about 15 minutes. This was not associated with shortness of breath, dizziness, lightheadedness, diaphoresis or syncope. She also has bilateral lower extremity edema which she states on and off and is on Lasix 40 mg daily and KCl. He also has left hand edema and unable to make complete fist. She has appointment with tow motor mechanic tomorrow and she had already missed twice. In ED, her blood pressure was high. 172/80, 185/101. Heart rate in 90s and 80s. No hypoxia. EKG reported as sinus tachycardia with occasional PVCs. QTc 479 ms chest x-ray reported no acute findings. 1. Atypical chest pain with suspicion of angina: Patient is being admitted in PCU transferred to ICU after PCI. On ACS protocol with serial cardiac enzymes. Patient had last stress test in October 2014 which was negative with EF 69%. Patient further had elevation in troponin, 0.059, 0.112, 0.14. Stress test was done and reported as area for stress-induced myocardial ischemia in mid to distal anterolateral segment. 2D echo was done and reported as EF 70% with indeterminate diastolic function with no regional wall motion abnormalities. Mild MR. Patient is on aspirin, Plavix, nitrate, metoprolol, losartan and statin. Patient is also on Lasix 40 mg daily for bilateral lower extremity edema. Chest x-ray did not show acute finding. BNP 108 on upper level of normal therefore no acute heart failure but may be chronic diastolic heart failure. Cardiac cath shows high-grade stenosis 85% and SVG graft to diagonal 1. This required balloon angioplasty with stenting. Patient had previously placed stent and saphenous vein graft to circumflex artery patent. LAD mild to moderate segment disease, circumflex artery subtotally occluded. RCA was separately occluded with [id number] distal collaterals. EF preserved. 2. Carotid artery disease status post triple bypass and multiple stents: Continue home cardiac medications. Patient is on aspirin, isosorbide mononitrate, metoprolol and Lasix. Patient also has anemia of chronic disease, H&H 9.6 last 30.4, MCV 81. Patient had 1 dose of iron sucrose. Repeat H&H better, 10.4/32.6. 3. Chronic heart failure with preserved EF: EF 70% as per echo. BNP 108. Chest x-ray no acute finding. 4. Other cardiac conditions: Arrhythmia, SVT and hypertension: Blood pressure is high. losartan 50 mg daily and titrate accordingly. Hydralazine 10 mg IV every 4 hourly as needed for systolic blood pressure more than 180 mmHg. On metoprolol rest as mentioned above 5. Rheumatologic disease: Patient has left hand swelling, probably secondary to edema, reactive. Follow-up with tow motor mechanic as an outpatient. CRP 10.7. LFT within normal limits except albumin 2.8. This might be a cause for generalized edema of hand and legs. 56 Diabetes mellitus type II: Patient blood sugar is not controlled. Glucose 258. Fasting sugar is 102 in the morning. Lantus decreased to 20 units of nightly daily. Other chronic comorbidities chronic anemia, history of GI bleed, chronic lumbar spinal stenosis, obesity, mild, dyslipidemia and TIA: Patient H&H is 9.6/30.4; that is on her baseline. Home medication reconciliation done. Multiple comorbidities complicates the present care and expect difficult and delay recovery DVT prophylaxis: Lovenox 40 mg subcu daily. Discontinue if platelet count drops less than 50,000 or hemoglobin less than 8 g%. Clinical Impression(s) from Imaging Studies Chest X-Ray 02/01/19 13:12 IMPRESSION: No acute findings Code Visit Inpatient E&M: 75256 Subs Hosp L3
--- NOTE | 2019-02-03 13:44 | PN_ITS ---
Patient Problems: Active and Suspected Problems (Last Reviewed 12/21/18 @ 10:34 by Ana Dupont) Atypical chest pain (Acute) Lower extremity edema (Acute) Angina pectoris (Acute) NSTEMI (non-ST elevated myocardial infarction) (Acute) Subjective: Patient had cardiac cath today. Was found 85% stenosis of SVG to diagonal 1 for which PCI was done Vitals/I&O's: Vital Signs Temp Pulse Resp BP Pulse Ox 97 F L 77 12 124/78 H 96 02/03/19 09:15 02/03/19 10:15 02/03/19 10:15 02/03/19 10:15 02/03/19 10:15 Oxygen Flow Rate (L/min) 2 Oxygen Delivery Method Room Air Weight: 162 lb 11.218 oz Body Mass Index (BMI) 27.9 Intake and Output for Last 24 Hours 02/01/19 02/02/19 02/03/19 23:59 23:59 23:59 Intake Total 480 / 480 1340 / 1340 40 / 40 Balance 480 / 480 1340 / 1340 40 / 40 General: Alert, Oriented x3, Cooperative HEENT: Atraumatic, PERRLA, EOMI, Normocephalic Neck: Supple, No JVD, Negative Carotid Bruits Lungs: Clear to auscultation, Normal air movement, No rhonchi, No wheeze, No rales Cardiovascular: Regular rate, Regular Rhythm, Normal S1, Normal S2, No murmurs Abdomen: Bowel Sounds Present, Soft, Non Tender, Non-Distended Extremities: Capillary Refill Less than 3 Seconds, Edema Skin: No rashes, No breakdown Musculoskeletal: No Tenderness to Palpation of Joints or Extremities, Arthritic Changes Neurological: Cranial nerves II-XII grossly intact, Deep Tendon Reflexes 2+/4 and Symmetrical, Neuro grossly intact Psych/Mental Status: Normal Affect, Appropriate Microbiology Past 72 Hours 02/02/19 23:55 Stool Stool Occult Blood (HUBERT) - Final Laboratory Results 02/02/19 21:42: POC Glucose 183 H 02/03/19 04:08: Urine Color Yellow, Urine Clarity Clear, Urine pH 8.0, Ur Specific [place] 1.015, Urine Protein Negative, Urine Glucose (UA) Normal, Urine Ketones Negative, Urine Occult Blood Negative, Urine Nitrite Negative, Urine Bilirubin Negative, Urine Urobilinogen Normal, Ur Leukocyte Esterase Negative 02/03/19 05:10: Sodium 143, Potassium 3.5, Chloride 109 H, Carbon Dioxide 26.0, Anion Gap 8, BUN 11, Creatinine 0.73, Estim Creat Clear Calc 38.10, Est GFR (MDRD) Af Amer 98, Est GFR (MDRD) Non-Af 81, BUN/Creatinine Ratio 15.0, Glucose 107 H, Calcium 9.3, Troponin I 0.331 H 02/03/19 05:10: WBC 6.6, RBC 4.10 L, Hgb 10.4 L, Hct 32.6 L, MCV 79.5 L, MCH 25.4 L, MCHC 31.9 L, RDW 15.1 H, RDW Differential 42.8, Plt Count 378, MPV 10.6, Immature Gran % (Auto) 0.300, Neut % (Auto) 64.4, Lymph % (Auto) 25.3, [place] % (Auto) 8.2, Eos % (Auto) 1.5, Baso % (Auto) 0.3, Absolute Neuts (auto) 4.2, Absolute Lymphs (auto) 1.66, Total Counted Not Reportable 02/03/19 05:10: PT 13.9, INR 1.1, APTT 33.2 02/03/19 06:18: POC Glucose 102 02/03/19 08:30: Activated Clotting Time 191 H Current Medications Acetaminophen (Tylenol) 650 mg PO Q6H PRN PRN PRN Reason: Mild Pain (0-2/10) Hydrocodone Bitart/Acetaminophen ([place] 5mg-325mg) 0.5 tablet PO BID PRN PRN PRN Reason: PAIN Last Admin: 02/01/19 22:15 Dose: 0.5 tablet Aspirin (Aspirin, Baby) 81 mg PO DAILY@0800 [facility] Last Admin: 02/03/19 05:55 Dose: 81 mg Atorvastatin Calcium (Lipitor) 40 mg PO QHS [facility] Last Admin: 02/02/19 21:44 Dose: 40 mg Atropine Sulfate () 0.5 mg IV UD PRN PRN Reason: HR <50 bpm Clopidogrel Bisulfate (Plavix) 75 mg PO DAILY [facility] Last Admin: 02/03/19 05:56 Dose: 75 mg Furosemide (Lasix) 40 mg PO DAILY [facility] Last Admin: 02/02/19 09:50 Dose: 40 mg Heparin Sodium (Beef Lung) (Heparin 500 Unit/5 Ml (100/Ml)) 500 unit IV UD PRN PRN Reason: HEPARIN FLUSH Hydralazine HCl (Apresoline Iv) 10 mg IV Q4H PRN PRN PRN Reason: SBP>180 Last Admin: 02/01/19 17:05 Dose: 10 mg Sodium Chloride () 250 mls @ 15 mls/hr IV .[id number] PRN PRN Reason: SALINE FLUSH Sodium Chloride () 500 mls @ 15 mls/hr IV .[id number] PRN PRN Reason: SALINE FLUSH Sodium Chloride () 1,000 mls @ 150 mls/hr IV .[id number] [facility] Stop: 02/03/19 16:07 Nitroglycerin/Dextrose () 250 mls @ 3 mls/hr IV .[id number] [facility] Insulin Glargine (Lantus (Bkc)) 30 units SC QHS [facility] Last Admin: 02/02/19 21:43 Dose: 30 u Isosorbide Mononitrate (Imdur) 30 mg PO QAM [facility] Last Admin: 02/03/19 05:56 Dose: 30 mg Labetalol HCl (Trandate) 5 mg IV X1 PRN PRN Reason: SBP > 160 when pulling sheath Levothyroxine Sodium (Synthroid) 137 mcg PO DAILY@0600 [facility] Last Admin: 02/03/19 05:55 Dose: 137 mcg Lorazepam (Ativan) 1 mg PO Q6H PRN PRN PRN Reason: BACK SPASMS/ANXIETY Losartan Potassium (Cozaar) 50 mg PO DAILY [facility] Last Admin: 02/03/19 05:56 Dose: 50 mg Metoclopramide HCl (Reglan) 5 mg IV Q6H PRN PRN Reason: NAUSEA/VOMITING Metoprolol Succinate (Toprol Xl (Beta Antwon)) 50 mg PO DAILY [facility] Last Admin: 02/03/19 05:56 Dose: 50 mg Morphine Sulfate () 2 mg IV Q4H PRN PRN PRN Reason: Mild back pain (0-2/10) Nitroglycerin (Nitrostat) 0.4 mg SUBLINGUAL Q5M PRN PRN Reason: Chest Pain Polysaccharide Iron Complex (Ferrex 150) [facility] Potassium Chloride (K-Dur) 20 meq PO TIDCM [facility] Last Admin: 02/02/19 18:49 Dose: 20 meq Sodium Chloride () 5 - 15 ml IV UD PRN PRN Reason: SALINE FLUSH Last Admin: 02/03/19 06:15 Dose: 10 ml Sodium Chloride () 500 ml IV BOLUS PRN PRN Reason: VASO-VAGAL PROTOCOL Medical Necessity - Tobacco Use Smoking Status: Former smoker Tobacco Use: Cigarettes Assessment/Plan All Active Problems (Last Reviewed 12/21/18 @ 10:34 by Ana Dupont) Atypical chest pain (Acute) Lower extremity edema (Acute) Angina pectoris (Acute) NSTEMI (non-ST elevated myocardial infarction) (Acute) Intractable back pain (Acute) Acute right lumbar radiculopathy (Acute) Legionella pneumonia (Resolved) Sepsis (Resolved) Pneumonia (Resolved) The patient is a 83 year old F with history of coronary artery disease status post three-vessel CABG and 7 stent last [place]/stent about 5 years ago was admitted with chest pain mild exertion total 2 episodes on 2 consecutive days consistent with unstable angina. This lasted for about 15 minutes. This was not associated with shortness of breath, dizziness, lightheadedness, diaphoresis or syncope. She also has bilateral lower extremity edema which she states on and off and is on Lasix 40 mg daily and KCl. He also has left hand edema and unable to make complete fist. She has appointment with reconciliation specialist tomorrow and she had already missed twice. In ED, her blood pressure was high. 172/80, 185/101. Heart rate in 90s and 80s. No hypoxia. EKG reported as sinus tachycardia with occasional PVCs. QTc 479 ms chest x-ray reported no acute findings. 1. Atypical chest pain with suspicion of angina: Patient is being admitted in PCU transferred to ICU after PCI. On ACS protocol with serial cardiac enzymes. Patient had last stress test in October 2014 which was negative with EF 69%. Patient further had elevation in troponin, 0.059, 0.112, 0.14. Stress test was done and reported as area for stress-induced myocardial ischemia in mid to distal anterolateral segment. 2D echo was done and reported as EF 70% with indeterminate diastolic function with no regional wall motion abnormalities. Mild MR. Patient is on aspirin, Plavix, nitrate, metoprolol, losartan and statin. Patient is also on Lasix 40 mg daily for bilateral lower extremity edema. Chest x-ray did not show acute finding. BNP 108 on upper level of normal therefore no acute heart failure but may be chronic diastolic heart failure. Cardiac cath shows high-grade stenosis 85% and SVG graft to diagonal 1. This required balloon angioplasty with stenting. Patient had previously placed stent and saphenous vein graft to circumflex artery patent. LAD mild to moderate segment disease, circumflex artery subtotally occluded. RCA was separately occluded with [id number] distal collaterals. EF preserved. 2. Carotid artery disease status post triple bypass and multiple stents: Continue home cardiac medications. Patient is on aspirin, isosorbide mononitrate, metoprolol and Lasix. Patient also has anemia of chronic disease, H&H 9.6 last 30.4, MCV 81. Patient had 1 dose of iron sucrose. Repeat H&H better, 10.4/32.6. 3. Chronic heart failure with preserved EF: EF 70% as per echo. BNP 108. Chest x-ray no acute finding. 4. Other cardiac conditions: Arrhythmia, SVT and hypertension: Blood pressure is high. losartan 50 mg daily and titrate accordingly. Hydralazine 10 mg IV every 4 hourly as needed for systolic blood pressure more than 180 mmHg. On metoprolol rest as mentioned above 5. Rheumatologic disease: Patient has left hand swelling, probably secondary to edema, reactive. Follow-up with reconciliation specialist as an outpatient. CRP 10.7. LFT within normal limits except albumin 2.8. This might be a cause for generalized edema of hand and legs. 56 Diabetes mellitus type II: Patient blood sugar is not controlled. Glucose 258. Fasting sugar is 102 in the morning. Lantus decreased to 20 units of nightly daily. Other chronic comorbidities chronic anemia, history of GI bleed, chronic lumbar spinal stenosis, obesity, mild, dyslipidemia and TIA: Patient H&H is 9.6/30.4; that is on her baseline. Home medication reconciliation done. Multiple comorbidities complicates the present care and expect difficult and delay recovery DVT prophylaxis: Lovenox 40 mg subcu daily. Discontinue if platelet count drops less than 50,000 or hemoglobin less than 8 g%. Clinical Impression(s) from Imaging Studies Chest X-Ray 02/01/19 13:12 IMPRESSION: No acute findings Code Visit Inpatient E&M: 32464 Subs Hosp L3
--- NOTE | 2019-02-03 13:51 | CRPHASE1 ---
Patient Communication PHII Cardiac Rehab Discussed with Patient:: Yes Guide to Cardiac Rehab Given to Patient:: Yes Cardiac Rehab Facility Choice List Given to Patient:: Yes - [facility] Choice Program [facility] CR PHII:: Communication Given to CR, Refer to [facility] Filtering Machine Tender Helper:: Robert Bonilla PCP:: Brian Degroot Chi Refer Phase II Cardiac Rehab:: Yes Sessions:: 36 sessions - 3 days/wk, 12 weeks Risk Factors/Lifestyle Smoking Status: Former smoker Hx Hypertension: Yes Hx Diabetes Mellitus Type 2: Yes Hx Metabolic Disorders: Yes Hx Dyslipidemia: Yes Height: 1.63 m Weight:: 73.8 kg BMI: 27.8 Post-Menopausal: Yes Stress: Recent ETOH: No Caffeine: Yes Substance Abuse: No Family History: Family History (Last Reviewed 12/21/18 @ 10:34 by Ana Dupont) Mother Colon cancer Mother Heart disease Laboratory Values: Cardiac Rehab Phase I Labs Triglycerides 132 mg/dL (-199) 02/02/19 04:34 Cholesterol 137 mg/dL (200) 02/02/19 04:34 LDL Cholesterol 72 mg/dL (0-130) 02/02/19 04:34 HDL Cholesterol 39 mg/dL (40-) L 02/02/19 04:34 Phase I Education Given On:: [place], Antiplatelet medication, Diabetes - Type II Issues Affecting Care:: None Knowledge of Condition:: Yes Hospital Course Cardiac Cath Date:: 02/03/19 Medical/Surgical History NC:: Yes - AGE 57 Diabetes Type II:: Yes Hypertension:: Yes Dyslipidemia:: Yes Cancer:: Yes Anxiety:: Yes Other Medical/Surgical Issues:: 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 Cardiac rehabilitation programs are recognized as integral to the continued care of the patient with coronary heart disease. The cardiac rehabilitation program is designed to optimize a patient's physical, psychological, and social functioning. Health adult care manager work in cardiac rehabilitation programs and assist you with getting the treatments you need to get stronger and healthier - like exercise, healthy eating habits, and medications. Cardiac rehabilitation has been show to help people with heart problems live longer and have better life enjoyment than people who do not go to cardiac rehabilitation. Please contact the Cardiac Rehabilitation Program at [facility] at in two weeks if you have not heard from them.
--- NOTE | 2019-02-03 13:56 | CRPHASE1_ITS ---
Patient Communication PHII Cardiac Rehab Discussed with Patient:: Yes Guide to Cardiac Rehab Given to Patient:: Yes Cardiac Rehab Facility Choice List Given to Patient:: Yes - [facility] Choice Program [facility] CR PHII:: Communication Given to CR, Refer to [facility] Industrial Controls Technician:: Robert Bonilla PCP:: Brian Degroot Chi Refer Phase II Cardiac Rehab:: Yes Sessions:: 36 sessions - 3 days/wk, 12 weeks Risk Factors/Lifestyle Smoking Status: Former smoker Hx Hypertension: Yes Hx Diabetes Mellitus Type 2: Yes Hx Metabolic Disorders: Yes Hx Dyslipidemia: Yes Height: 1.63 m Weight:: 73.8 kg BMI: 27.8 Post-Menopausal: Yes Stress: Recent ETOH: No Caffeine: Yes Substance Abuse: No Family History: Family History (Last Reviewed 12/21/18 @ 10:34 by Ana Dupont) Mother Colon cancer Mother Heart disease Laboratory Values: Cardiac Rehab Phase I Labs Triglycerides 132 mg/dL (-199) 02/02/19 04:34 Cholesterol 137 mg/dL (200) 02/02/19 04:34 LDL Cholesterol 72 mg/dL (0-130) 02/02/19 04:34 HDL Cholesterol 39 mg/dL (40-) L 02/02/19 04:34 Phase I Education Given On:: [place], Antiplatelet medication, Diabetes - Type II Issues Affecting Care:: None Knowledge of Condition:: Yes Hospital Course Cardiac Cath Date:: 02/03/19 Medical/Surgical History [place]:: Yes - AGE 57 Diabetes Type II:: Yes Hypertension:: Yes Dyslipidemia:: Yes Cancer:: Yes Anxiety:: Yes Other Medical/Surgical Issues:: 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 Cardiac rehabilitation programs are recognized as integral to the continued care of the patient with coronary heart disease. The cardiac rehabilitation program is designed to optimize a patient's physical, psychological, and social functioning. Health child care provider work in cardiac rehabilitation programs and assist you with getting the treatments you need to get stronger and healthier - like exercise, healthy eating habits, and medications. Cardiac rehabilitation has been show to help people with heart problems live longer and have better life enjoyment than people who do not go to cardiac rehabilitation. Please contact the Cardiac Rehabilitation Program at [facility] at in two weeks if you have not heard from them.
--- NOTE | 2019-02-03 13:59 | CRPH1.INSTRU ---
General Education CAD and cardiac anatomy and function:: Patient communicates acknowledgment Explanation of diagnoses and procedures:: Patient communicates acknowledgment Sign/Symptoms of UT:: Patient communicates acknowledgment Antiplatelet therapy: Not instructed Proper use of NTG-SL: Not instructed Emergency procedures and activation of EMS: Patient communicates acknowledgment Compliance of all prescribed medications: Not instructed Smoking Patient Nicotine/Smoking Risk Factors Are:: Non-smoker Dyslipidemia Patient Dyslipidemia Risk Factors Are:: Total Cholesterol - 137, Triglycerides - 132, HDL - 39, LDL - 72 Recommendations Include:: Lipid profile provided Overweight/Obesity Patient Overweight/Obesity Risk Factors Are:: Overweight = 26-29 Hypertension Recommendations Include:: Maintain BP <130/85, BP <130/80 if diabetic, DASH dietary guidelines Hypertension:: Patient communicates acknowledgment Heart Disease Patient Heart Disease Risk Factors Are:: Family history of heart disease < 65 years old, Previous cardiac event Diabetes Diabetes:: Patient communicates acknowledgment Metabolic Syndrome Metabolic Syndrome Response Code:: Patient communicates acknowledgment Sedentary Sedentary Response Code:: Patient communicates acknowledgment - SHE HAS RIGHT SIDE WEAKNESS WANTS TO GET REHAB FOR THAT
--- NOTE | 2019-02-03 14:49 | CASEMGMT ---
SW spoke with patient and her family per their request. They asked about [facility] van transportation, Passport, and private duty. SW told them about all 3 services. SW also gave them information on [facility] van and a private duty list. Carri HERMOSILLO
[2019-02-03 14:56] LABS: Bedside Glucose 190 mg/dL (70-110)
[2019-02-03] MEDS: Iron Polysaccharide Complex 150 MG CAPSULE PO (17:29)
[2019-02-03] MEDS: Insulin Lispro 100 UNIT/ML INSULN.PEN SQ ×2 (17:29→21:52)
[2019-02-03] MEDS: Acetaminophen 325 MG Tablet 650 MG PO (21:49)
[2019-02-03 21:51] LABS: Bedside Glucose 229 mg/dL (70-110)
[2019-02-03] MEDS: Atorvastatin Calcium 20 MG Tablet 40 MG PO (21:51)
[2019-02-04] VITALS (12 sets, daily range): BP systolic 139–192; BP diastolic 53–119; PULSE 77–97; RESP 16–22; TEMP 36.7–36.9; O2SAT 91–96
[2019-02-04 03:58] LABS: Anion Gap 7 (5-15); BUN 11 mg/dL (7-18); BUN/Creat Ratio 13.6 RATIO (10-20); Calcium,Total 8.9 mg/dL (8.5-10.1); Chloride 112 mmol/L (98-107); Creatinine, Serum 0.81 mg/dL (0.55-1.02); EST Glomerular Filtration Rate 72 mL/min (>60); Est Glom Filt Rate - Afr Amer 87 mL/min (>60); Estimated Creatinine Clearance 47.04 ml/min; Glucose 143 mg/dL (74-106); Potassium 3.8 mmol/L (3.5-5.1); Sodium Level 144 mmol/L (136-145)
[2019-02-04 03:59] LABS: Hematocrit 30.9 % (37-47); Hemoglobin 9.8 g/dl (12.0-15.0); Mean Corp Hgb Conc 31.7 g/gl (32-36); Mean Corpuscular Hgb 25.7 pg (27.0-32.0); Mean Corpuscular Volume 81.1 fL (81-99); Mean Platelet Vol. 10.1 fl (6.2-12.0); Platelet Count 373 K/mm3 (150-450); RBC Distribution Width CV 15.5 % (11.6-14.6); RBC Distribution Width SD 45.7 fl (35.1-43.9); Red Blood Count 3.81 M/mm3 (4.2-5.4); White Blood Count 8.6 K/mm3 (4.4-11.0)
[2019-02-04 04:06] LABS: Scan Indicated on CBC? Y/N NO
[2019-02-04] MEDS: hydrALAZINE 20 MG/ML Vial 10 MG IV (05:16)
[2019-02-04] MEDS: 0.9% NaCl Peripheral Flush Adult/Peds IV (05:16)
[2019-02-04] MEDS: Levothyroxine 137 MCG Tablet PO (05:16)
--- NOTE | 2019-02-04 08:31 | PCM.DC ---
- Discharge Diagnoses Current Active Problems: Current Active and Chronic Problems (Last Updated 02/03/19 @ 18:53 by Luz Maria Stratton) Essential (primary) hypertension (Chronic) Angina pectoris (Acute) NSTEMI (non-ST elevated myocardial infarction) (Acute 02/03/19) Anemia (Chronic) You will use the following diet at home:: Calorie/Carbohydrate Controlled (specify 1200, 1400, etc) - 1800 ADA diet Your food should be the consistency of: Regular Discharge Activity: May Not Drive Call your doctor if you observe: Fever of 101 or Higher, Inability to have a bowel movement, Shortness of breath, Fainting spells, Swelling in the ankles, Chest pain, Increased palpitations (irregular heartbeat), Calf discomfort Additional Instructions: F/U Tubular Stock Glass Bulb Machine Former on 02/07/19 FOR ARTHRITIS Allergies/Adverse Reactions: Allergies No Known Allergies Allergy (Verified 11/13/18 03:25) Medications to take at Discharge Nitroglycerin (INPATIENT USE) [Nitrostat] 0.4 mg SUBLINGUAL Q5M PRN 12/21/13 ergocalciferol (vitamin D2) 50,000 unit capsule 50,000 unit PO QMONTH 11/18/17 Aspirin [Aspirin, Baby] 81 mg PO DAILY@0800 07/30/18 isosorbide mononitrate ER 30 mg tablet,extended release 24 hr 30 mg PO QAM #90 tab 11/03/18 Furosemide 40 mg PO DAILY 11/13/18 Hydrocodone/Acetaminophen [Hydrocodone-Acetamin 5-325 mg] 0.5 tab PO BID PRN 11/13/18 metoprolol succinate ER 50 mg tablet,extended release 24 hr 50 mg PO DAILY #90 tab 11/17/18 Glipizide/Metformin HCl [Glipizide-Metformin 2.5-250 mg] 2 tab PO BID 02/01/19 Levothyroxine [Synthroid] 137 mcg PO DAILY 02/01/19 Potassium Chloride [Klor-Con M20] 20 meq PO TID 02/01/19 Atorvastatin Calcium [Lipitor] 40 mg PO QHS #30 tablet 02/04/19 Clopidogrel Bisulfate [Plavix] 75 mg PO DAILY #30 tablet 02/04/19 Insulin Glargine,Hum.rec.anlog [Toudomenico Nowak Solostar] 25 unit SC DAILY #0 ml 02/04/19 Iron Polysaccharide Complex [Ferrex 150] 150 mg PO DAILYCM #30 capsule 02/04/19 Losartan Potassium [Cozaar] 50 mg PO DAILY #30 tablet 02/04/19 The following prescriptions were given: Atorvastatin Calcium [Lipitor] 40 mg PO QHS #30 tablet Clopidogrel Bisulfate [Plavix] 75 mg PO DAILY #30 tablet Iron Polysaccharide Complex [Ferrex 150] 150 mg PO DAILYCM #30 capsule Losartan Potassium [Cozaar] 50 mg PO DAILY #30 tablet Primary Care Physician: Brian Degroot Chi, MD [Primary Care Provider] - Please follow up with your Primary Care Physician in: in 2 weeks Test Results: Test results from this visit will be discussed in further detail at your follow-up appointment, if applicable. Please Follow Up With: Robert Bonilla MD When: as scheduled
--- NOTE | 2019-02-04 08:34 | DS.PCM_ITS ---
Discharge Date and Diagnosis - Problem List Patient Problems: Active and Suspected Problems (Last Updated 02/03/19 @ 18:53 by Luz Maria Stratton) Angina pectoris (Acute) NSTEMI (non-ST elevated myocardial infarction) (Acute 02/03/19) Date of Admission: 02/01/19 Date of Discharge: 02/04/19 - Primary Discharge Diagnosis Active and Suspected Problems (Last Updated 02/03/19 @ 18:53 by Luz Maria Stratton) Angina pectoris (Acute) NSTEMI (non-ST elevated myocardial infarction) (Acute 02/03/19) - Secondary Discharge Diagnosis Chronic Problems (Last Updated 02/03/19 @ 18:53 by Luz Maria Stratton) Essential (primary) hypertension (Chronic) Anemia (Chronic) 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) TKI-ZGS-DYP-D1 w/ 2.5 x 16 mm Promus Synergy Stent 02/03/19 RFH-BMQ-Tasr-Mid OM1 w/ 2.25 x 12 mm Promus Premier 12/30/2013 XII-BYV-BYU-Prox-Mid OM2 w/ 3.0 x 23 mm Promus Stent 03/05/2010 JFM-PLP-INZ-OM2 w/ Taxus Stent 04/2006 CABG x 3 SVG to D1, SVG-OM & SVG-RCA History of coronary artery stent placement (Chronic 02/03/19) PCS-WEC-JWL-D1 w/ 2.5 x 16 mm Promus Synergy Stent 02/03/19 NPI-KEG-Qfsj-Mid OM1 w/ 2.25 x 12 mm Promus Premier 12/30/2013 GVR-HDU-GXL-Prox-Mid OM2 w/ 3.0 x 23 mm Promus Stent 03/05/2010 EBC-DRM-VCW-OM2 w/ Taxus Stent 04/2006 H/O coronary artery bypass surgery (Chronic 09/08/92) CABG x 3 SVG to D1, SVG-OM & SVG-RCA SVT (supraventricular tachycardia) (Chronic) HLD (hyperlipidemia) (Chronic) Hospital Course and Treatment Operations: None Summary of Care Provided: The patient is a 83 year old F with history of coronary artery disease status post three-vessel CABG and 7 stent last [place]/stent about 5 years ago was admitted with chest pain mild exertion total 2 episodes on 2 consecutive days consistent with unstable angina. This lasted for about 15 minutes. This was not associated with shortness of breath, dizziness, lightheadedness, diaphoresis or syncope. She also has bilateral lower extremity edema which she states on and off and is on Lasix 40 mg daily and KCl. He also has left hand edema and unable to make complete fist. She has appointment with senior mobile developer tomorrow and she had already missed twice. In ED, her blood pressure was high. 172/80, 185/101. Heart rate in 90s and 80s. No hypoxia. EKG reported as sinus tachycardia with occasional PVCs. QTc 479 ms chest x-ray reported no acute findings. 1. Atypical chest pain with suspicion of angina: Patient is being admitted in PCU transferred to ICU after PCI. On ACS protocol with serial cardiac enzymes. Patient had last stress test in October 2014 which was negative with EF 69%. Patient further had elevation in troponin, 0.059, 0.112, 0.14. Stress test was done and reported as area for stress-induced myocardial ischemia in mid to distal anterolateral segment. 2D echo was done and reported as EF 70% with indeterminate diastolic function with no regional wall motion abnormalities. Mild MR. Patient is on aspirin, Plavix, nitrate, metoprolol, losartan and statin. Patient is also on Lasix 40 mg daily for bilateral lower extremity edema. Chest x-ray did not show acute finding. BNP 108 on upper level of normal therefore no acute heart failure but may be chronic diastolic heart failure. Cardiac cath shows high-grade stenosis 85% and SVG graft to diagonal 1. This required balloon angioplasty with stenting. Patient had previously placed stent and saphenous vein graft to circumflex artery patent. LAD mild to moderate segment disease, circumflex artery subtotally occluded. RCA was separately occluded with [id number] distal collaterals. EF preserved. Few PVCs spondylar awake overnight monitor yesterday but no significant arrhythmia. She has been discharged home on baby aspirin, Plavix, metoprolol, losartan, atorvastatin and isosorbide mononitrate. Prescription sent to the pharmacy. 2. Carotid artery disease status post triple bypass and multiple stents: Continue home cardiac medications. Patient is on aspirin, isosorbide mononitrate, metoprolol and Lasix. Patient also has anemia of chronic disease, H&H 9.6 last 30.4, MCV 81. Patient had 1 dose of iron sucrose. Repeat H&H better, 10.4/32.6. 3. Chronic heart failure with preserved EF: EF 70% as per echo. BNP 108. Chest x-ray no acute finding. 4. Other cardiac conditions: Arrhythmia, SVT and hypertension: Blood pressure is high. losartan 50 mg daily and titrate accordingly. Hydralazine 10 mg IV every 4 hourly as needed for systolic blood pressure more than 180 mmHg. On metoprolol rest as mentioned above 5. Rheumatologic disease: Patient has left hand swelling, probably secondary to edema, reactive. Follow-up with senior mobile developer as an outpatient. CRP 10.7. LFT within normal limits except albumin 2.8. This might be a cause for generalized edema of hand and legs. 56 Diabetes mellitus type II: Patient blood sugar is not controlled. Glucose 258. Fasting sugar is 102 in the morning. Lantus decreased to 20 units of nightly daily. Other chronic comorbidities chronic anemia, history of GI bleed, chronic lumbar spinal stenosis, obesity, mild, dyslipidemia and TIA: Patient H&H is 9.6/30.4; that is on her baseline. Home medication reconciliation done. Multiple comorbidities complicates the present care and expect difficult and delay recovery DVT prophylaxis: Lovenox 40 mg subcu daily. Discharge medication reconciliation done. Discharge follow-up instructions completed. Discharge process discussed with the patient and all questions were answered to patient's satisfaction. His prescription sent to the pharmacy. Follow-up with the PCP, oven loader Dr. maki. Follow-up with senior mobile developer on 02/07/2019 Total time spent, exact 35 minutes on discharge meds reconciliation, examination, review of imaging and blood test and discussion with the patient on follow-up instructions. Patient Problems: Active and Suspected Problems (Last Updated 02/03/19 @ 18:53 by Luz Maria Stratton) Angina pectoris (Acute) NSTEMI (non-ST elevated myocardial infarction) (Acute 02/03/19) - Physical Exam General: Alert, Oriented x3, Cooperative HEENT: Atraumatic, PERRLA, EOMI, Normocephalic Oral: Moist Mucosa Neck: Supple, No JVD, Negative Carotid Bruits Lungs: Clear to auscultation, No rhonchi, No wheeze, No rales Cardiovascular: Regular rate, Regular Rhythm, Normal S1, Normal S2, No murmurs Abdomen: Bowel Sounds Present, Soft, Non Tender, Non-Distended Extremities: Capillary Refill Less than 3 Seconds, Edema Skin: No rashes, No breakdown Musculoskeletal: No Tenderness to Palpation of Joints or Extremities, Arthritic Changes Lymphatic: No Cervical, Supraclavicular, or Inguinal Adenopathy Neurological: Cranial nerves II-XII grossly intact Psych/Mental Status: Normal Affect, Appropriate Vital Signs Temp Pulse Resp BP Pulse Ox 98.3 F 78 19 H 140/57 H 93 02/04/19 04:00 02/04/19 06:00 02/04/19 06:00 02/04/19 06:00 02/04/19 06:00 Oxygen Flow Rate (L/min) 2 Oxygen Delivery Method Room Air Weight: 163 lb 5.8 oz Body Mass Index (BMI) 27.9 Intake and Output for Last 24 Hours 02/02/19 02/03/19 02/04/19 23:59 23:59 23:59 Intake Total 1340 / 1340 1810 / 1810 120 / 120 Balance 1340 / 1340 1810 / 1810 120 / 120 Microbiology Past 72 Hours 02/02/19 23:55 Stool Occult Blood (HUBERT) - Final Stool Laboratory Tests Past 24 Hrs 02/03/19 02/04/19 02/04/19 08:30 03:30 03:30 WBC 8.6 RBC 3.81 L Hgb 9.8 L Hct 30.9 L MCV 81.1 MCH 25.7 L MCHC 31.7 L RDW 15.5 H RDW Differential 45.7 H Plt Count 373 MPV 10.1 Activated Clotting Time 191 H Sodium 144 Potassium 3.8 Chloride 112 H Carbon Dioxide 25.0 Anion Gap 7 BUN 11 Creatinine 0.81 Estim Creat Clear Calc 47.04 Est GFR (MDRD) Af Amer 87 Est GFR (MDRD) Non-Af 72 BUN/Creatinine Ratio 13.6 Glucose 143 H Calcium 8.9 POC Glucose 02/03/19 02/03/19 21:43 14:52 POC Glucose 229 H 190 H Discharge Activity: May Not Drive Call your doctor if you observe: Fever of 101 or Higher, Inability to have a bowel movement, Shortness of breath, Fainting spells, Swelling in the ankles, Chest pain, Increased palpitations (irregular heartbeat), Calf discomfort Home Medications: Medications to take at Discharge Nitroglycerin (INPATIENT USE) [Nitrostat] 0.4 mg SUBLINGUAL Q5M PRN 12/21/13 ergocalciferol (vitamin D2) 50,000 unit capsule 50,000 unit PO QMONTH 11/18/17 Aspirin [Aspirin, Baby] 81 mg PO DAILY@0800 07/30/18 isosorbide mononitrate ER 30 mg tablet,extended release 24 hr 30 mg PO QAM #90 tab 11/03/18 Furosemide 40 mg PO DAILY 11/13/18 Hydrocodone/Acetaminophen [Hydrocodone-Acetamin 5-325 mg] 0.5 tab PO BID PRN 11/13/18 metoprolol succinate ER 50 mg tablet,extended release 24 hr 50 mg PO DAILY #90 tab 11/17/18 Glipizide/Metformin HCl [Glipizide-Metformin 2.5-250 mg] 2 tab PO BID 02/01/19 Levothyroxine [Synthroid] 137 mcg PO DAILY 02/01/19 Potassium Chloride [Klor-Con M20] 20 meq PO TID 02/01/19 Atorvastatin Calcium [Lipitor] 40 mg PO QHS #30 tablet 02/04/19 Clopidogrel Bisulfate [Plavix] 75 mg PO DAILY #30 tablet 02/04/19 Insulin Glargine,Hum.rec.anlog [Toujeo Max Solostar] 25 unit SC DAILY #0 ml 02/04/19 Iron Polysaccharide Complex [Ferrex 150] 150 mg PO DAILYCM #30 capsule 02/04/19 Losartan Potassium [Cozaar] 50 mg PO DAILY #30 tablet 02/04/19 Following Prescrptions Were Given to Patient: Atorvastatin Calcium [Lipitor] 40 mg PO QHS #30 tablet Clopidogrel Bisulfate [Plavix] 75 mg PO DAILY #30 tablet Iron Polysaccharide Complex [Ferrex 150] 150 mg PO DAILYCM #30 capsule Losartan Potassium [Cozaar] 50 mg PO DAILY #30 tablet Primary Care Physician: Brian Degroot Chi, MD [Primary Care Provider] - Please follow up with your Primary Care Physician in: in 2 weeks Please Follow Up With: Robert Maki MD When: as scheduled Medical Necessity - Tobacco Use Smoking Status: Former smoker Tobacco Use: Cigarettes Meaningful Use Info Meaningful Use Diagnoses (Choose all that apply): AMI - AMI Aspirin given w/in 24hrs of arrival?: Yes ASA at discharge?: Yes Statins at discharge?: Yes Francis/ARB at discharge?: Yes Beta Antwon at discharge?: Yes Done w/ Acute [place] measure.: Yes - CHF Documented LVEF (%): 70 Code Visit Inpatient E&M: 07197 Disch Hosp
[2019-02-04] MEDS: Metoprolol(XL)Succ 50 MG Tablet PO (09:18)
[2019-02-04] MEDS: Isosorbide Mononitrate 30 MG Tablet PO (09:18)
[2019-02-04] MEDS: Losartan Potassium 50 MG Tablet PO (09:18)
[2019-02-04] MEDS: Insulin Lispro 100 UNIT/ML INSULN.PEN SQ (09:18)
[2019-02-04] MEDS: Furosemide 40 MG Tablet PO (09:18)
[2019-02-04] MEDS: Aspirin 81 MG TAB.CHEW PO (09:18)
[2019-02-04] MEDS: Clopidogrel Bisulfate 75 MG Tablet PO (09:18)
[2019-02-04 09:26] LABS: Bedside Glucose 190 mg/dL (70-110)
--- NOTE | 2019-02-05 13:55 | CASEMGMT ---
MARAH CM DC PHONE CALL DC DATE: 02/05/19 DC Disposition: Home LACE/STRATA: 06/01 Attempted call to pt's home phone. No answer and no message machine picked up. Vanessa CLEANING RN ACM
== END 2019-02-04 11:37 | disposition home or self-care (01) | DRG 247 ==
LOC: ED 13:33 → PCU 16:12 → ICU 02-03 10:15
PROVIDERS: Internal Medicine Cardiovascular Disease; Physician Assistant; Admitting Provider Internal Medicine; Emergency Provider Emergency Medicine; Family Provider Family Medicine Geriatric Medicine; PCP Family Medicine Geriatric Medicine; Visit Provider Internal Medicine
DX: I21.4 Non-ST elevation (NSTEMI) myocardial infarction (principal); I47.1 Supraventricular tachycardia; I50.32 Chronic diastolic (congestive) heart failure; I11.0 Hypertensive heart disease with heart failure; I25.2 Old myocardial infarction; I25.110 Atherosclerotic heart disease of native coronary artery with unstable angina pectoris; D63.8 Anemia in other chronic diseases classified elsewhere; E78.5 Hyperlipidemia, unspecified; E11.9 Type 2 diabetes mellitus without complications; M51.36 Other intervertebral disc degeneration, lumbar region; M54.16 Radiculopathy, lumbar region; M99.03 Segmental and somatic dysfunction of lumbar region; M99.05 Segmental and somatic dysfunction of pelvic region; E66.9 Obesity, unspecified; Z68.27 Body mass index [BMI] 27.0-27.9, adult; Z95.1 Presence of aortocoronary bypass graft; Z95.5 Presence of coronary angioplasty implant and graft; Z79.4 Long term (current) use of insulin; Z79.84 Long term (current) use of oral hypoglycemic drugs; Z79.82 Long term (current) use of aspirin; Z79.01 Long term (current) use of anticoagulants; Z79.899 Other long term (current) drug therapy; Z87.891 Personal history of nicotine dependence; Z86.73 Personal history of transient ischemic attack (TIA), and cerebral infarction without residual deficits
CPT/HCPCS: 36415; 71045; 78452; 80048; 80061; 80076; 81002; 82274; 82962; 83540; 83550; 83880; 84443; 84484; 85025; 85027; 85347; 85610; 85730; 86140; 92937; 93005; 93017; 93306; 93459; 99152; 99153; 99285; A9500; C1760; J1756; J7030; J7040; A4216; C1725; C1769; C1874; C1884; C1887; C9604; J2785; Q9967

== ENCOUNTER → 2019-02-09 07:26 | Outpatient (CLI) | payer MEDICARE, SELFPAY ==
[2018-12-08 11:32] VITALS: BMI 27.4
[2019-02-01 16:39] VITALS: BMI 27.9
[2019-02-03 13:58] VITALS: BMI 27.8
--- NOTE | 2019-02-09 07:32 | BI_ITS ---
MAMMOGRAPHY - BILATERAL SCREENING REASON FOR EXAM: Female, 83 years old. Routine annual screening examination. PERTINENT HISTORY: Sister with breast cancer. TECHNIQUE: Digital bilateral breast luli (3D mammographic acquisition) in the CC and MLO projections. 2-D mediolateral oblique (MLO) and craniocaudad (CC) views of both breasts were obtained. CAD: Full Field Digital Mammography with Computer Added Detection was performed. COMPARISON: Comparison is made with prior study dated February 05, 2018 and January 28, 2017. FINDINGS: Breast Composition: There are scattered areas of fibroglandular density. There are no dominant masses or suspicious calcifications. Stable 5.2 mm well-defined nodule in the upper deep medial portion of the left breast. This no present of a tiny lymph node or cyst. Correlation with ultrasound is recommended. No other significant abnormalities are identified. There has been no significant change since the prior study. BI/SCREENING MAMM (CAD), BILAT IMPRESSION: Stable bilateral screening mammogram. Correlation with ultrasound of a 5.2 mm well-defined nodule in the upper deep medial portion of the left breast is recommended. ASSESSMENT CATEGORY: BIRADS Category 0: Incomplete. Need additional imaging evaluation. A letter regarding these results will be sent to the patient by the facility within 30 days. Approximately 10% of breast cancers are not detected by mammography. A normal mammogram should not delay biopsy of a clinically suspicious abnormality. [id number] Electronically Signed: Farzad Banks, at 8:41 EDT , Service support ,
== END ==
PROVIDERS: Family Provider Family Medicine Geriatric Medicine; PCP Family Medicine Geriatric Medicine; Referring Provider Family Medicine Geriatric Medicine; Visit Provider Family Medicine Geriatric Medicine
DX: Z12.31 Encounter for screening mammogram for malignant neoplasm of breast (principal); Z80.3 Family history of malignant neoplasm of breast
CPT/HCPCS: 77063; 77067

== ENCOUNTER → 2019-02-10 10:52 | Outpatient (CLI) | payer MEDICARE, SELFPAY ==
[2019-02-01 16:39] VITALS: BMI 27.9
[2019-02-03 13:58] VITALS: BMI 27.8
--- NOTE | 2019-02-10 11:09 | US_ITS ---
STUDY: ULTRASOUND BREAST - LEFT REASON FOR EXAM: Female, 83 years old. Abnormal screening mammogram. TECHNIQUE: Axial and longitudinal images of the LEFT breast were performed with a high resolution ultrasound transducer. COMPARISON: Comparison is made with prior mammogram dated February 09, 2019. FINDINGS: LEFT Breast: The mammographic abnormality corresponds to a 4 mm x 3 mm x 4 mm well-defined hypoechoic nodule at 11:00 position of the breast at 6 cm from nipple. This lies just deep to the subcutaneous tissues. This may represent a sebaceous cyst. Clinical correlation is recommended. US/Breast Limited Unilateral IMPRESSION: The mammographic abnormality corresponds to a 4 mm x 3 mm x 4 mm well-defined hypoechoic nodule at 11:00 position of the breast at 6 cm from nipple. This may represent a sebaceous cyst. Clinical correlation is recommended. ASSESSMENT CATEGORY: BIRADS Category 2: Benign. A letter regarding these results will be sent to the patient by the facility within 30 days. Electronically Signed: Farzad Banks, at 15:12 EDT , Service support ,
== END ==
PROVIDERS: Family Provider Family Medicine Geriatric Medicine; PCP Family Medicine Geriatric Medicine; Referring Provider Family Medicine Geriatric Medicine; Visit Provider Family Medicine Geriatric Medicine
DX: R92.8 Other abnormal and inconclusive findings on diagnostic imaging of breast (principal)
CPT/HCPCS: 76642

== ENCOUNTER → 2019-02-16 12:19 | Outpatient (CLI) | payer MEDICARE, SELFPAY ==
[2019-02-01 16:39] VITALS: BMI 27.9
[2019-02-03 13:58] VITALS: BMI 27.8
[2019-02-16 13:29] LABS: Absolute Lymphocyte Count 3.37 X10^3/ul (0.83-4.51); Absolute Neutrophil Count 7.4 X10^3/uL (2.0-7.7); Basophil# 0.06 X10^3/uL; Basophil% 0.5 % (0-1); Eosinophil# 0.29 X10^3/uL; Eosinophils% 2.4 % (0-5); Hematocrit 32.5 % (37-47); Hemoglobin 10.1 g/dl (12.0-15.0); Lymphocyte # 3.37 X10^3/ul (4.0); Lymphocyte % 27.8 % (19-41); Mean Corp Hgb Conc 31.1 g/gl (32-36); Mean Corpuscular Hgb 25.3 pg (27.0-32.0); Mean Corpuscular Volume 81.5 fL (81-99); Mean Platelet Vol. 10.5 fl (6.2-12.0); Monocyte# 0.95 X10^3/uL; Monocyte% 7.8 % (0-10); Neutrophil # 7.42 X10^3/uL (2.7-7.7); Neutrophil % 61.1 % (47-70); Platelet Count 476 K/mm3 (150-450); RBC Distribution Width CV 15.8 % (11.6-14.6); RBC Distribution Width SD 46.6 fl (35.1-43.9); Red Blood Count 3.99 M/mm3 (4.2-5.4); White Blood Count 12.1 K/mm3 (4.4-11.0)
[2019-02-16 13:31] LABS: POSITIVE COUNT NO; POSITIVE DIFFERENTIAL NO; POSITIVE MORPHOLOGY NO
[2019-02-16 13:49] LABS: Vitamin D,25 Hydroxy 42.5 ng/mL (29.95-100.01)
[2019-02-16 14:00] LABS: ALB/GLOB Ratio 0.8 RATIO (0.9-2.4); AST(SGOT) 7 U/L (15-37); Alanine Aminotransfer ALT/SGPT 16 U/L (13-56); Alkaline Phosphatase 66 U/L (45-117); Anion Gap 11 (5-15); BUN 30 mg/dL (7-18); BUN/Creat Ratio 19.6 RATIO (10-20); Calcium,Total 9.3 mg/dL (8.5-10.1); Chloride 105 mmol/L (98-107); Creatinine, Serum 1.53 mg/dL (0.55-1.02); EST Glomerular Filtration Rate 35 mL/min (>60); Est Glom Filt Rate - Afr Amer 42 mL/min (>60); Glucose 205 mg/dL (74-106); Potassium 3.6 mmol/L (3.5-5.1); Sodium Level 141 mmol/L (136-145); Thyroid Stim Hormone (TSH) 2.86 uIU/mL (0.358-3.74); Uric Acid 6.4 mg/dL (2.6-6.0)
== END ==
PROVIDERS: Family Provider Family Medicine Geriatric Medicine; PCP Family Medicine Geriatric Medicine; Visit Provider Family Medicine Geriatric Medicine
DX: E11.9 Type 2 diabetes mellitus without complications (principal); E55.9 Vitamin D deficiency, unspecified; I10 Essential (primary) hypertension; M10.9 Gout, unspecified; N76.0 Acute vaginitis
CPT/HCPCS: 36415; 80053; 82306; 84443; 84550; 85025

== ENCOUNTER 2019-02-23 08:01 | Outpatient (RCR) | payer MEDICARE, SELFPAY ==
[2019-02-01 16:39] VITALS: BMI 27.9
[2019-02-03 13:58] VITALS: BMI 27.8
[2019-02-23 08:19] VITALS: BP 147/92; PULSE 98; RESP 18; TEMP 36.4; BMI 27.3
--- NOTE | 2019-02-23 09:03 | PCM.WC.HP ---
(1) Debility Status: Chronic Current Visit: Yes Code(s): R53.81 - Other malaise (2) Diabetes mellitus Status: Chronic Current Visit: Yes Qualifiers: Diabetes mellitus type: type 2 Code(s): E11.9 - Type 2 diabetes mellitus without complications (3) Hypothyroidism Status: Chronic Current Visit: No Code(s): E03.9 - Hypothyroidism, unspecified (4) Overweight (BMI 25.0-29.9) Status: Chronic Current Visit: No Code(s): E66.3 - Overweight (5) Essential (primary) hypertension Status: Chronic Current Visit: No Code(s): I10 - Essential (primary) hypertension (6) NSTEMI (non-ST elevated myocardial infarction) Status: Chronic Current Visit: No Code(s): I21.4 - Non-ST elevation (NSTEMI) myocardial infarction (7) Anemia Status: Chronic Current Visit: No Code(s): D64.9 - Anemia, unspecified (8) 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 myocardial infarction Status: Chronic Current Visit: No Code(s): I25.2 - Old myocardial infarction (9) Atherosclerosis of coronary 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 Status: Chronic Current Visit: No Code(s): I25.810 - Atherosclerosis of coronary artery bypass graft(s) without angina pectoris Comment: ASV-LSI-BTI-D1 w/ 2.5 x 16 mm Promus Synergy Stent 02/03/19 QEA-SFZ-Htzj-Mid OM1 w/ 2.25 x 12 mm Promus Premier 12/30/2013 TGP-FVK-SFX-Prox-Mid OM2 w/ 3.0 x 23 mm Promus Stent 03/05/2010 GQP-MVE-PRM-OM2 w/ Taxus Stent 04/2006 CABG x 3 SVG to D1, SVG-OM & SVG-RCA (10) History of coronary artery stent placement Status: Chronic Current Visit: No Code(s): Z95.5 - Presence of coronary angioplasty implant and graft Comment: GSI-HUW-XSE-D1 w/ 2.5 x 16 mm Promus Synergy Stent 02/03/19 ICW-GOU-Kecn-Mid OM1 w/ 2.25 x 12 mm Promus Premier 12/30/2013 VMW-WAL-JHU-Prox-Mid OM2 w/ 3.0 x 23 mm Promus Stent 03/05/2010 EWM-ILS-TKI-OM2 w/ Taxus Stent 04/2006 (11) H/O coronary artery bypass surgery Status: Chronic Current Visit: No Code(s): Z95.1 - Presence of aortocoronary bypass graft Comment: CABG x 3 SVG to D1, SVG-OM & SVG-RCA (12) HLD (hyperlipidemia) Status: Chronic Current Visit: No Qualifiers: Code(s): E78.5 - Hyperlipidemia, unspecified (13) Leg swelling Status: Chronic Current Visit: Yes Code(s): M79.89 - Other specified soft tissue disorders (14) Edema of both legs Status: Chronic Current Visit: Yes Code(s): R60.0 - Localized edema (15) Lower extremity ulceration Status: Chronic Current Visit: Yes Qualifiers: Laterality: right Code(s): L97.909 - Non-pressure chronic ulcer of unspecified part of unspecified lower leg with unspecified severity History of Present Illness Date of Service: 02/23/19 Chief Complaint: Bilateral lower extremity swelling and edema with ulceration of the right lateral calf History of Wound: This is an 83-year-old female who presents with an ulceration on the right lateral calf which is said to have been present for approximately 1 month. Patient is unaware of any trauma or obvious cause of the ulceration. She does experience chronic swelling and edema in her lower extremities, typically worse at the end of the day. She claims to sleep on a flat mattress at night. She contracted legionnaires disease approximately 10 months ago, which has adversely affected her level of activity. She is generally inactive, spending long periods of time each day in an idle sitting position. She intermittently elevates her lower extremities. She relates that in the recent past she has had such severe swelling and edema in her lower extremities that fluid was dripping from the pores of her legs. Since her diagnosis of legionnaires disease, she has been much less active than previously, and has had weakness in her right lower extremity which has caused a decrease in her level of activity. She denies a history of thrombophlebitis. 2 weeks prior to her current presentation, a coronary artery stent was placed. Past Medical History Past Medical History: Chronic Problems (Last Updated 02/03/19 @ 18:53 by Luz Maria Stratton) Debility (Chronic) Diabetes mellitus (Chronic) Hypothyroidism (Chronic) Overweight (BMI 25.0-29.9) (Chronic) Leg swelling (Chronic) Edema of both legs (Chronic) Lower extremity ulceration (Chronic) Essential (primary) hypertension (Chronic) NSTEMI (non-ST elevated myocardial infarction) (Chronic 02/03/19) Anemia (Chronic) 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) ICN-NNW-WGH-D1 w/ 2.5 x 16 mm Promus Synergy Stent 02/03/19 EZH-OAL-Mvsf-Mid OM1 w/ 2.25 x 12 mm Promus Premier 12/30/2013 TCI-GHM-FYG-Prox-Mid OM2 w/ 3.0 x 23 mm Promus Stent 03/05/2010 DYT-CNF-LPO-OM2 w/ Taxus Stent 04/2006 CABG x 3 SVG to D1, SVG-OM & SVG-RCA History of coronary artery stent placement (Chronic 02/03/19) LNF-EZX-XIV-D1 w/ 2.5 x 16 mm Promus Synergy Stent 02/03/19 HVJ-UAC-Kxdc-Mid OM1 w/ 2.25 x 12 mm Promus Premier 12/30/2013 RMT-NDD-EDH-Prox-Mid OM2 w/ 3.0 x 23 mm Promus Stent 03/05/2010 TCH-YYX-UZP-OM2 w/ Taxus Stent 04/2006 H/O coronary artery bypass surgery (Chronic 09/08/92) CABG x 3 SVG to D1, SVG-OM & SVG-RCA SVT (supraventricular tachycardia) (Chronic) HLD (hyperlipidemia) (Chronic) Past Medical History: Patient has a history of myocardial infarction, coronary artery disease, coronary artery stent placement, hyperlipidemia, diabetes mellitus, hypertension, hypothyroidism, and legionnaires disease. Her history is negative for cerebrovascular accident, cancer, pulmonary disease, and renal disease. Surgical History: angioplasty, appendectomy, cholecystectomy, coronary bypass surgery, hysterectomy, - - Appendectomy, cholecystectomy, CABG x 3, PCI x 3, hysterectomy. Allergies/Adverse Reactions: Allergies No Known Allergies Allergy (Verified 11/13/18 03:25) Home Medications: Ambulatory Orders Medication Instructions Recorded Nitroglycerin (INPATIENT USE) 0.4 mg SUBLINGUAL Q5M PRN 12/21/13 [Nitrostat] ergocalciferol (vitamin D2) 50,000 50,000 unit PO QMONTH 11/18/17 unit capsule Aspirin [Aspirin, Baby] 81 mg PO DAILY@0800 07/30/18 isosorbide mononitrate ER 30 mg 30 mg PO QAM #90 tab 11/03/18 tablet,extended release 24 hr Furosemide 40 mg PO BID 11/13/18 Hydrocodone/Acetaminophen 0.5 tab PO BID PRN 11/13/18 [Hydrocodone-Acetamin 5-325 mg] metoprolol succinate ER 50 mg 50 mg PO DAILY #90 tab 11/17/18 tablet,extended release 24 hr Glipizide/Metformin HCl 2 tab PO BID 02/01/19 [Glipizide-Metformin 2.5-250 mg] Levothyroxine [Synthroid] 137 mcg PO DAILY 02/01/19 Potassium Chloride [Klor-Con M20] 20 meq PO TID 02/01/19 Atorvastatin Calcium [Lipitor] 40 mg PO QHS #30 tab 02/04/19 Clopidogrel Bisulfate [Plavix] 75 mg PO DAILY #30 tab 02/04/19 Insulin Glargine,Hum.rec.anlog 25 unit SUBCUT DAILY #0 ml 02/04/19 [Toujeo Max Solostar] Iron Polysaccharide Complex 150 mg PO DAILYCM #30 cap 02/04/19 [Ferrex 150] - Family History Maternal Family History: Family History (Last Reviewed 12/21/18 @ 10:34 by Ana Dupont) Mother Colon cancer Mother Heart disease Heart Disease Paternal Family History: Family History (Last Reviewed 12/21/18 @ 10:34 by Ana Dupont) Mother Colon cancer Mother Heart disease - - No marked paternal history of HD, CA, DM. The patient's father was killed in World War II. Social History: The patient is a . She lives alone. 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 She does not use tobacco products. She consumes alcoholic beverages occasionally. Lives: Alone Smoking Status: Former smoker Tobacco Use: Non-smoker Alcohol: Occasional Drugs: None Review of Systems Constitutional: Denies: Chills, Fever, Weight Change Eyes: Denies: Pain, Vision Change HEENT: Denies: Difficulty Hearing, Difficulty Swallowing, Sinus Congestion Cardiovascular: Denies: Chest Pain, Palpitations Respiratory: Denies: Cough, Shortness of Breath Gastrointestinal: Denies: Diarrhea, Nausea, Vomiting Genitourinary: Denies: Dysuria, Hematuria Endocrine: Denies: Heat/ Cold Intolerance, Polydipsia, Polyuria Hematologic/ Lymphatic: Denies: Easy Bruising, Easy Bleeding - Physical Exam Vital Signs Temp Pulse Resp BP 97.5 F L 98 18 147/92 H 02/23/19 08:19 02/23/19 08:19 02/23/19 08:19 02/23/19 08:19 General: Alert, Oriented x3, Cooperative, No apparent distress, Well developed, Well nourished HEENT: Atraumatic, PERRLA, EOMI, Normocephalic Oral: Moist Mucosa Neck: Supple, No JVD, Negative Carotid Bruits, Negative Hepatojugular Reflux, No Nuchal Rigidity, Trachea Midline Lungs: Clear to auscultation, Normal air movement, No rhonchi, No wheeze, No rales Cardiovascular: Regular rate, Regular Rhythm, Normal S1, Normal S2, No murmurs Abdomen: Soft, Non Tender, Non-Distended, Obese Extremities: No clubbing, No cyanosis, No Calf Tenderness, - - Moderate swelling and edema is noted in the lower extremities, more marketed in the right lower extremity. Peripheral extremities are warm and well-perfused. There is a small ulceration on the right lateral calf. Dimensions are documented elsewhere. There is no sign of infection or cellulitis. The base of the ulceration is generally pink and healthy in appearance, with a mild amount of bioburden. Skin: No rashes Wound Measurements and Assessment WC - Nurse 1 - General Ulcer Measurement Start: 02/23/19 08:19 Freq: Status: Active Protocol: Activity Type Activity Date Activity User E-Sign Co-Sign Detail Recorded Client Recorded Date Recorded By Document 02/23/19 08:19 [email or web address] [id number] 02/23/19 08:25 CHAVO 02/23/19 08:19 Wound Center Nurse 1 [Ulcer Assessment] 2-right lateral maynard -Combined with other wound No -Current Size (cm) - Length 0.5 -Current Size (cm) - Width 0.3 -Current Size (cm) - Depth 0.2 -Total Square Cm 0.15 -Photo Taken Yes -Epithelialization Small 1-33% -Tunneling No -Undermining/Tunneling No -Circular Undermining No -Exudate Amt None Present -Wound Margin Flat & Intact -Granulation Amt None Present (0 %) -Slough/Fibrin Yes -Necrosis Amt Large (67-100%) -Necrotic Tissue Type Adherent Slough -Structure Exposed N/A -Texture (Alessia-wound Skin Appearance) Assessed Localized Edema -Moisture (Alessia-wound Skin Appearance Assessed ) Dry/Scaly -Color (Alessia-wound Skin Appearance) Assessed -Temperature (Alessia-wound Skin No Abnormality Appearance) (Pt Warm) -Tenderness on Palpation (Alessia-wound No Skin Appearance) -Ulcer Cleansing Rinsed/ Irrigated with Saline -Foul Odor after Cleansing No -Anesthetic Used 4% Lidocaine Solution [Edema Assessment] -Lower Limb Edema Present Yes -Right Calf (cm) 37.6 -Right Ankle (cm) 27.5 -Left Calf (cm) 34.5 -Left Ankle (cm) 25.0 WC - Nurse 2 - General Ulcer CM Notes Start: 02/23/19 08:19 Freq: Status: Active Protocol: Activity Type Activity Date Activity User E-Sign Co-Sign Detail Recorded Client Recorded Date Recorded By Document 02/23/19 08:46 [id number] 02/23/19 08:56 02/23/19 08:46 Wound Center Nurse 2 [Procedure/Treatment] 2-right lateral maynard -Time 08:54 -Correct Patient Yes -Correct Side, Site, Position Yes -Correct Procedure Yes -Procedure Performed Yes -Type of Procedure Debridement -Clinical Debridement Subcutaneous -Post Debridement Size (cm) - Length 0.6 -Post Debridement Size (cm) - Width 0.3 -Post Debridement Size (cm) - Depth 0.2 -Total Square Cm 0.18 -Wound/Ulcer Outcome Not Healed -Ulcer Cleansing Rinsed/ Irrigated with Saline -Foul Odor after Cleansing No -Bleeding Controlled with Pressure -Offloading No -Treatment Response Procedure Tolerated Well [See Physician Procedure note for Specifics] Pain Scale: 0-10 Numeric [Pain] -Is Patient Pain Free? Yes Musculoskeletal: No Muscle Wasting Neurological: Cranial nerves II-XII grossly intact, Neuro grossly intact Psych/Mental Status: Normal Affect, Appropriate, Alert and oriented to time, place, person, mood and affect Debridement Note Post-Debridement Measurements/Treatment WC - Nurse 2 - General Ulcer CM Notes Start: 02/23/19 08:19 Freq: Status: Active Protocol: Activity Type Activity Date Activity User E-Sign Co-Sign Detail Recorded Client Recorded Date Recorded By Document 02/23/19 08:46 [email or web address] [id number] 02/23/19 08:56 CHAVO 02/23/19 08:46 Wound Center Nurse 2 2-right lateral maynard -Time 08:54 -Correct Patient Yes -Correct Side, Site, Position Yes -Correct Procedure Yes -Procedure Performed Yes -Type of Procedure Debridement -Clinical Debridement Subcutaneous -Post Debridement Size (cm) - Length 0.6 -Post Debridement Size (cm) - Width 0.3 -Post Debridement Size (cm) - Depth 0.2 -Total Square Cm 0.18 -Wound/Ulcer Outcome Not Healed -Ulcer Cleansing Rinsed/ Irrigated with Saline -Foul Odor after Cleansing No -Bleeding Controlled with Pressure -Offloading No -Treatment Response Procedure Tolerated Well Pain Scale: 0-10 Numeric Is Patient Pain Free? Yes Laterality: Right - Lateral calf Type of Debridement: Excisional debridement Anesthesia Used: 5% Lidocaine Gel Depth: Down to and including healthy tissue, in the subcutaneous layer Percentage of wound debrided: 100 Instrument Used: 3mm curette Tissue Removed: Bioburden Severity: Fat Layer Exposed Amount of bleeding with debridement: Mild Bleeding Controlled with: Compression and gauze Patient tolerated procedure well Assessment/Plan Active Problems (Last Updated 02/03/19 @ 18:53 by Luz Maria Stratton) Debility (Chronic) Diabetes mellitus (Chronic) Leg swelling (Chronic) Edema of both legs (Chronic) Lower extremity ulceration (Chronic) Assessment: This is an 83-year-old female who was in her normal state of health until approximately 10 to 12 months ago. She contracted legionnaires disease, which has resulted in debility and a decrease in her functional status. As result, she has been much less active than previously. She spends longer periods each day in an idle sitting position. She ambulates much less liberally. She does, however, sleep on a flat mattress at night. As result of her inactivity, and increasing periods of idle sitting, she has noted significant swelling and edema in her lower extremities. She presents now with an ulceration on the right lateral calf, suspected to be due to the swelling in her right lower extremity. Recent laboratory studies have been obtained, and results reviewed. Results are as follows: White blood count 12.1, hemoglobin 10.1, hematocrit 32.5, platelets 476,000, sodium 141, potassium 3.6, chloride 105, BUN 30, creatinine 1.53, calcium 9.3, magnesium 1.6, serum iron 24, TIBC 288, bilirubin 0.30, AST 7, ALT 16, alkaline phosphatase 66, total protein 7.0, albumin 3.0. Patient states that her daily blood sugars run between 120 and 150. Venous duplex examination has recently been performed, which revealed no evidence of lower extremity deep vein thrombosis. Valvular function was not completely assessed. Plan: We are to implement a regimen of lifestyle changes. The patient has been encouraged to continue sleeping on a flat mattress at night. She has been encouraged to elevate her lower extremities as much as possible during daytime hours as well. Leg elevation is to be at heart level, or higher. She has been discouraged from prolonged, idle sitting. Activity has been encouraged as tolerated. We are to implement mild compression initially, using Tubigrip's. Weight loss has been recommended. The patient has been advised to optimize her glycemic control, and to optimize her nutritional intake as well. We are to obtain a noninvasive lower extremity arterial study, which will help to guide the degree of compression to the lower extremities. Irma is to be implemented topically, which will be changed to either daily or every other day. Patient is to return in 1 week for reassessment. The patient is not a smoker. Influenza vaccine was not administered today. Patient weighs 159 pounds. She stands 5 feet 4 inches tall. Her BMI is 27.3, which places her in an overweight category. Weight loss has been recommended.
--- NOTE | 2019-02-23 09:08 | HP.PCM_ITS ---
(1) Debility Status: Chronic Current Visit: Yes Code(s): R53.81 - Other malaise (2) Diabetes mellitus Status: Chronic Current Visit: Yes Qualifiers: Diabetes mellitus type: type 2 Code(s): E11.9 - Type 2 diabetes mellitus without complications (3) Hypothyroidism Status: Chronic Current Visit: No Code(s): E03.9 - Hypothyroidism, unspecified (4) Overweight (BMI 25.0-29.9) Status: Chronic Current Visit: No Code(s): E66.3 - Overweight (5) Essential (primary) hypertension Status: Chronic Current Visit: No Code(s): I10 - Essential (primary) hypertension (6) NSTEMI (non-ST elevated myocardial infarction) Status: Chronic Current Visit: No Code(s): I21.4 - Non-ST elevation (NSTEMI) myocardial infarction (7) Anemia Status: Chronic Current Visit: No Code(s): D64.9 - Anemia, unspecified (8) 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 myocardial infarction Status: Chronic Current Visit: No Code(s): I25.2 - Old myocardial infarction (9) Atherosclerosis of coronary 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 Status: Chronic Current Visit: No Code(s): I25.810 - Atherosclerosis of coronary artery bypass graft(s) without angina pectoris Comment: LZW-KHX-MKD-D1 w/ 2.5 x 16 mm Promus Synergy Stent 02/03/19 TWL-XNJ-Gywa-Mid OM1 w/ 2.25 x 12 mm Promus Premier 12/30/2013 WWQ-WNH-WZI-Prox-Mid OM2 w/ 3.0 x 23 mm Promus Stent 03/05/2010 CGZ-UBJ-RCK-OM2 w/ Taxus Stent 04/2006 CABG x 3 SVG to D1, SVG-OM & SVG-RCA (10) History of coronary artery stent placement Status: Chronic Current Visit: No Code(s): Z95.5 - Presence of coronary angioplasty implant and graft Comment: LET-ZQB-MLI-D1 w/ 2.5 x 16 mm Promus Synergy Stent 02/03/19 FRV-YTG-Bafy-Mid OM1 w/ 2.25 x 12 mm Promus Premier 12/30/2013 MXT-RPW-JFO-Prox-Mid OM2 w/ 3.0 x 23 mm Promus Stent 03/05/2010 NVE-NLI-DDS-OM2 w/ Taxus Stent 04/2006 (11) H/O coronary artery bypass surgery Status: Chronic Current Visit: No Code(s): Z95.1 - Presence of aortocoronary bypass graft Comment: CABG x 3 SVG to D1, SVG-OM & SVG-RCA (12) HLD (hyperlipidemia) Status: Chronic Current Visit: No Qualifiers: Code(s): E78.5 - Hyperlipidemia, unspecified (13) Leg swelling Status: Chronic Current Visit: Yes Code(s): M79.89 - Other specified soft tissue disorders (14) Edema of both legs Status: Chronic Current Visit: Yes Code(s): R60.0 - Localized edema (15) Lower extremity ulceration Status: Chronic Current Visit: Yes Qualifiers: Laterality: right Code(s): L97.909 - Non-pressure chronic ulcer of unspecified part of unspecified lower leg with unspecified severity History of Present Illness Date of Service: 02/23/19 Chief Complaint: Bilateral lower extremity swelling and edema with ulceration of the right lateral calf History of Wound: This is an 83-year-old female who presents with an ulceration on the right lateral calf which is said to have been present for approximately 1 month. Patient is unaware of any trauma or obvious cause of the ulceration. She does experience chronic swelling and edema in her lower extremities, typically worse at the end of the day. She claims to sleep on a flat mattress at night. She contracted legionnaires disease approximately 10 months ago, which has adversely affected her level of activity. She is generally inactive, spending long periods of time each day in an idle sitting position. She intermittently elevates her lower extremities. She relates that in the recent past she has had such severe swelling and edema in her lower extremities that fluid was dripping from the pores of her legs. Since her diagnosis of legionnaires disease, she has been much less active than previously, and has had weakness in her right lower extremity which has caused a decrease in her level of activity. She denies a history of thrombophlebitis. 2 weeks prior to her current presentation, a coronary artery stent was placed. Past Medical History Past Medical History: Chronic Problems (Last Updated 02/03/19 @ 18:53 by Luz Maria Stratton) Debility (Chronic) Diabetes mellitus (Chronic) Hypothyroidism (Chronic) Overweight (BMI 25.0-29.9) (Chronic) Leg swelling (Chronic) Edema of both legs (Chronic) Lower extremity ulceration (Chronic) Essential (primary) hypertension (Chronic) NSTEMI (non-ST elevated myocardial infarction) (Chronic 02/03/19) Anemia (Chronic) 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) ZAJ-IRE-FDE-D1 w/ 2.5 x 16 mm Promus Synergy Stent 02/03/19 EPO-CZW-Wnku-Mid OM1 w/ 2.25 x 12 mm Promus Premier 12/30/2013 JEG-BPA-VCI-Prox-Mid OM2 w/ 3.0 x 23 mm Promus Stent 03/05/2010 MWR-QUF-VCK-OM2 w/ Taxus Stent 04/2006 CABG x 3 SVG to D1, SVG-OM & SVG-RCA History of coronary artery stent placement (Chronic 02/03/19) AWZ-IZA-DBH-D1 w/ 2.5 x 16 mm Promus Synergy Stent 02/03/19 YFW-ALS-Vfrw-Mid OM1 w/ 2.25 x 12 mm Promus Premier 12/30/2013 WNP-ITR-PQW-Prox-Mid OM2 w/ 3.0 x 23 mm Promus Stent 03/05/2010 ILI-SPO-DYU-OM2 w/ Taxus Stent 04/2006 H/O coronary artery bypass surgery (Chronic 09/08/92) CABG x 3 SVG to D1, SVG-OM & SVG-RCA SVT (supraventricular tachycardia) (Chronic) HLD (hyperlipidemia) (Chronic) Past Medical History: Patient has a history of myocardial infarction, coronary artery disease, coronary artery stent placement, hyperlipidemia, diabetes mellitus, hypertension, hypothyroidism, and legionnaires disease. Her history is negative for cerebrovascular accident, cancer, pulmonary disease, and renal disease. Surgical History: angioplasty, appendectomy, cholecystectomy, coronary bypass surgery, hysterectomy, - - Appendectomy, cholecystectomy, CABG x 3, PCI x 3, hysterectomy. Allergies/Adverse Reactions: Allergies No Known Allergies Allergy (Verified 11/13/18 03:25) Home Medications: Ambulatory Orders Medication Instructions Recorded Nitroglycerin (INPATIENT USE) 0.4 mg SUBLINGUAL Q5M PRN 12/21/13 [Nitrostat] ergocalciferol (vitamin D2) 50,000 50,000 unit PO QMONTH 11/18/17 unit capsule Aspirin [Aspirin, Baby] 81 mg PO DAILY@0800 07/30/18 isosorbide mononitrate ER 30 mg 30 mg PO QAM #90 tab 11/03/18 tablet,extended release 24 hr Furosemide 40 mg PO BID 11/13/18 Hydrocodone/Acetaminophen 0.5 tab PO BID PRN 11/13/18 [Hydrocodone-Acetamin 5-325 mg] metoprolol succinate ER 50 mg 50 mg PO DAILY #90 tab 11/17/18 tablet,extended release 24 hr Glipizide/Metformin HCl 2 tab PO BID 02/01/19 [Glipizide-Metformin 2.5-250 mg] Levothyroxine [Synthroid] 137 mcg PO DAILY 02/01/19 Potassium Chloride [Klor-Con M20] 20 meq PO TID 02/01/19 Atorvastatin Calcium [Lipitor] 40 mg PO QHS #30 tab 02/04/19 Clopidogrel Bisulfate [Plavix] 75 mg PO DAILY #30 tab 02/04/19 Insulin Glargine,Hum.rec.anlog 25 unit SUBCUT DAILY #0 ml 02/04/19 [Toujeo Max Solostar] Iron Polysaccharide Complex 150 mg PO DAILYCM #30 cap 02/04/19 [Ferrex 150] - Family History Maternal Family History: Family History (Last Reviewed 12/21/18 @ 10:34 by Ana Dupont) Mother Colon cancer Mother Heart disease Heart Disease Paternal Family History: Family History (Last Reviewed 12/21/18 @ 10:34 by Ana Dupont) Mother Colon cancer Mother Heart disease - - No marked paternal history of HD, CA, DM. The patient's father was killed in World War II. Social History: The patient is a . She lives alone. 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 She does not use tobacco products. She consumes alcoholic beverages occasionally. Lives: Alone Smoking Status: Former smoker Tobacco Use: Non-smoker Alcohol: Occasional Drugs: None Review of Systems Constitutional: Denies: Chills, Fever, Weight Change Eyes: Denies: Pain, Vision Change HEENT: Denies: Difficulty Hearing, Difficulty Swallowing, Sinus Congestion Cardiovascular: Denies: Chest Pain, Palpitations Respiratory: Denies: Cough, Shortness of Breath Gastrointestinal: Denies: Diarrhea, Nausea, Vomiting Genitourinary: Denies: Dysuria, Hematuria Endocrine: Denies: Heat/ Cold Intolerance, Polydipsia, Polyuria Hematologic/ Lymphatic: Denies: Easy Bruising, Easy Bleeding - Physical Exam Vital Signs Temp Pulse Resp BP 97.5 F L 98 18 147/92 H 02/23/19 08:19 02/23/19 08:19 02/23/19 08:19 02/23/19 08:19 General: Alert, Oriented x3, Cooperative, No apparent distress, Well developed, Well nourished HEENT: Atraumatic, PERRLA, EOMI, Normocephalic Oral: Moist Mucosa Neck: Supple, No JVD, Negative Carotid Bruits, Negative Hepatojugular Reflux, No Nuchal Rigidity, Trachea Midline Lungs: Clear to auscultation, Normal air movement, No rhonchi, No wheeze, No rales Cardiovascular: Regular rate, Regular Rhythm, Normal S1, Normal S2, No murmurs Abdomen: Soft, Non Tender, Non-Distended, Obese Extremities: No clubbing, No cyanosis, No Calf Tenderness, - - Moderate swelling and edema is noted in the lower extremities, more marketed in the right lower extremity. Peripheral extremities are warm and well-perfused. There is a small ulceration on the right lateral calf. Dimensions are documented elsewhere. There is no sign of infection or cellulitis. The base of the ulceration is generally pink and healthy in appearance, with a mild amount of bioburden. Skin: No rashes Wound Measurements and Assessment WC - Nurse 1 - General Ulcer Measurement Start: 02/23/19 08:19 Freq: Status: Active Protocol: Activity Type Activity Date Activity User E-Sign Co-Sign Detail Recorded Client Recorded Date Recorded By Document 02/23/19 08:19 [email or web address] [id number] 02/23/19 08:25 CHAVO 02/23/19 08:19 Wound Center Nurse 1 [Ulcer Assessment] 2-right lateral maynard -Combined with other wound No -Current Size (cm) - Length 0.5 -Current Size (cm) - Width 0.3 -Current Size (cm) - Depth 0.2 -Total Square Cm 0.15 -Photo Taken Yes -Epithelialization Small 1-33% -Tunneling No -Undermining/Tunneling No -Circular Undermining No -Exudate Amt None Present -Wound Margin Flat & Intact -Granulation Amt None Present (0 %) -Slough/Fibrin Yes -Necrosis Amt Large (67-100%) -Necrotic Tissue Type Adherent Slough -Structure Exposed N/A -Texture (Alessia-wound Skin Appearance) Assessed Localized Edema -Moisture (Alessia-wound Skin Appearance Assessed ) Dry/Scaly -Color (Alessia-wound Skin Appearance) Assessed -Temperature (Alessia-wound Skin No Abnormality Appearance) (Pt Warm) -Tenderness on Palpation (Alessia-wound No Skin Appearance) -Ulcer Cleansing Rinsed/ Irrigated with Saline -Foul Odor after Cleansing No -Anesthetic Used 4% Lidocaine Solution [Edema Assessment] -Lower Limb Edema Present Yes -Right Calf (cm) 37.6 -Right Ankle (cm) 27.5 -Left Calf (cm) 34.5 -Left Ankle (cm) 25.0 WC - Nurse 2 - General Ulcer CM Notes Start: 02/23/19 08:19 Freq: Status: Active Protocol: Activity Type Activity Date Activity User E-Sign Co-Sign Detail Recorded Client Recorded Date Recorded By Document 02/23/19 08:46 [id number] 02/23/19 08:56 02/23/19 08:46 Wound Center Nurse 2 [Procedure/Treatment] 2-right lateral maynard -Time 08:54 -Correct Patient Yes -Correct Side, Site, Position Yes -Correct Procedure Yes -Procedure Performed Yes -Type of Procedure Debridement -Clinical Debridement Subcutaneous -Post Debridement Size (cm) - Length 0.6 -Post Debridement Size (cm) - Width 0.3 -Post Debridement Size (cm) - Depth 0.2 -Total Square Cm 0.18 -Wound/Ulcer Outcome Not Healed -Ulcer Cleansing Rinsed/ Irrigated with Saline -Foul Odor after Cleansing No -Bleeding Controlled with Pressure -Offloading No -Treatment Response Procedure Tolerated Well [See Physician Procedure note for Specifics] Pain Scale: 0-10 Numeric [Pain] -Is Patient Pain Free? Yes Musculoskeletal: No Muscle Wasting Neurological: Cranial nerves II-XII grossly intact, Neuro grossly intact Psych/Mental Status: Normal Affect, Appropriate, Alert and oriented to time, place, person, mood and affect Debridement Note Post-Debridement Measurements/Treatment WC - Nurse 2 - General Ulcer CM Notes Start: 02/23/19 08:19 Freq: Status: Active Protocol: Activity Type Activity Date Activity User E-Sign Co-Sign Detail Recorded Client Recorded Date Recorded By Document 02/23/19 08:46 [email or web address] [id number] 02/23/19 08:56 CHAVO 02/23/19 08:46 Wound Center Nurse 2 2-right lateral maynard -Time 08:54 -Correct Patient Yes -Correct Side, Site, Position Yes -Correct Procedure Yes -Procedure Performed Yes -Type of Procedure Debridement -Clinical Debridement Subcutaneous -Post Debridement Size (cm) - Length 0.6 -Post Debridement Size (cm) - Width 0.3 -Post Debridement Size (cm) - Depth 0.2 -Total Square Cm 0.18 -Wound/Ulcer Outcome Not Healed -Ulcer Cleansing Rinsed/ Irrigated with Saline -Foul Odor after Cleansing No -Bleeding Controlled with Pressure -Offloading No -Treatment Response Procedure Tolerated Well Pain Scale: 0-10 Numeric Is Patient Pain Free? Yes Laterality: Right - Lateral calf Type of Debridement: Excisional debridement Anesthesia Used: 5% Lidocaine Gel Depth: Down to and including healthy tissue, in the subcutaneous layer Percentage of wound debrided: 100 Instrument Used: 3mm curette Tissue Removed: Bioburden Severity: Fat Layer Exposed Amount of bleeding with debridement: Mild Bleeding Controlled with: Compression and gauze Patient tolerated procedure well Assessment/Plan Active Problems (Last Updated 02/03/19 @ 18:53 by Luz Maria Stratton) Debility (Chronic) Diabetes mellitus (Chronic) Leg swelling (Chronic) Edema of both legs (Chronic) Lower extremity ulceration (Chronic) Assessment: This is an 83-year-old female who was in her normal state of health until approximately 10 to 12 months ago. She contracted legionnaires disease, which has resulted in debility and a decrease in her functional status. As result, she has been much less active than previously. She spends longer periods each day in an idle sitting position. She ambulates much less liberally. She does, however, sleep on a flat mattress at night. As result of her inactivity, and increasing periods of idle sitting, she has noted significant swelling and edema in her lower extremities. She presents now with an ulceration on the right lateral calf, suspected to be due to the swelling in her right lower extremity. Recent laboratory studies have been obtained, and results reviewed. Results are as follows: White blood count 12.1, hemoglobin 10.1, hematocrit 32.5, platelets 476,000, sodium 141, potassium 3.6, chloride 105, BUN 30, creatinine 1.53, calcium 9.3, magnesium 1.6, serum iron 24, TIBC 288, bilirubin 0.30, AST 7, ALT 16, alkaline phosphatase 66, total protein 7.0, albumin 3.0. Patient states that her daily blood sugars run between 120 and 150. Venous duplex examination has recently been performed, which revealed no evidence of lower extremity deep vein thrombosis. Valvular function was not completely assessed. Plan: We are to implement a regimen of lifestyle changes. The patient has been encouraged to continue sleeping on a flat mattress at night. She has been encouraged to elevate her lower extremities as much as possible during daytime h ours as well. Leg elevation is to be at heart level, or higher. She has been discouraged from prolonged, idle sitting. Activity has been encouraged as tolerated. We are to implement mild compression initially, using Tubigrip's. Weight loss has been recommended. The patient has been advised to optimize her glycemic control, and to optimize her nutritional intake as well. We are to obtain a noninvasive lower extremity arterial study, which will help to guide the degree of compression to the lower extremities. Irma is to be implemented topically, which will be changed to either daily or every other day. Patient is to return in 1 week for reassessment. The patient is not a smoker. Influenza vaccine was not administered today. Patient weighs 159 pounds. She stands 5 feet 4 inches tall. Her BMI is 27.3, which places her in an overweight category. Weight loss has been recommended.
== END 2019-02-26 23:59 ==
LOC: WC 08:01
PROVIDERS: Family Provider Family Medicine Geriatric Medicine; PCP Family Medicine Geriatric Medicine; Visit Provider Surgery
DX: E11.622 Type 2 diabetes mellitus with other skin ulcer (principal); R60.0 Localized edema; L97.212 Non-pressure chronic ulcer of right calf with fat layer exposed; M79.89 Other specified soft tissue disorders; I25.2 Old myocardial infarction; Z79.899 Other long term (current) drug therapy; E03.9 Hypothyroidism, unspecified; I10 Essential (primary) hypertension; Z95.1 Presence of aortocoronary bypass graft; E78.5 Hyperlipidemia, unspecified; I25.10 Atherosclerotic heart disease of native coronary artery without angina pectoris
CPT/HCPCS: 11042; 99203; G0463

== ENCOUNTER 2019-03-11 16:00 | Outpatient (RCR) | payer MEDICARE, SELFPAY ==
[2019-02-03 13:58] VITALS: BMI 27.8
[2019-02-27 01:28] VITALS: BP 147/92; PULSE 98; RESP 18; TEMP 36.4
--- NOTE | 2019-03-02 08:53 | ART_ITS ---
Reason For Study: PVD Procedure A bilateral lower extremity continuous wave Doppler with analog waveform analysis,segmental pressures,and ankle brachial indexes without exercise. Left Segmental Pressures Left brachial= 153mmHg. Left posterior tibial artery = 159mmHg. Left dorsalis pedis artery = 95mmHg. Left digit = 93 mmHg. The left dorsalis pedis waveforms are biphasic. The left posterior tibial artery waveforms are biphasic. Right Segmental Pressures Right brachial= 157mmHg. Right thigh = 169mmHg. Right calf = 117mmHg. Right posterior tibial artery = 112mmHg. Right dorsalis pedis artery = 117mmHg. Right digit = 92 mmHg. The right dorsalis pedis waveforms are biphasic. The right posterior tibial artery waveforms are biphasic. Indices The right ankle brachial index by the dorsalis pedis is 0.75. The right ankle brachial index by the posterior tibial artery is 0.71. The right digital-brachial index is 0.59. The left ankle brachial index by the dorsalis pedis is 0.61. The left ankle brachial index by the posterior tibial artery is 1.01. The left digital-brachial index is 0.59. Interpretation Summary Biphasic Doppler waveforms are noted at ankle level bilaterally. Pulse-volume recording waveform amplitudes appear diminished at digital level on the left. The resting right ankle-brachial index is moderately diminished. The resting left ankle-brachial index is normal. Digital-brachial indices are mildly diminished bilaterately. 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 There appears to be mild impairment of arterial flow at digital level on the left. Ordering Physician: Felice Faulkner Referring Physician: Brian Degroot Chi Performed By: Linda Germain RVT
[2019-03-02 09:56] VITALS: BP 153/93; PULSE 95; RESP 16; TEMP 36.2; BMI 26.7
--- NOTE | 2019-03-02 10:31 | PCM.WC.HP ---
(1) Debility Status: Chronic Current Visit: Yes Code(s): R53.81 - Other malaise (2) Diabetes mellitus Status: Chronic Current Visit: Yes Qualifiers: Diabetes mellitus type: type 2 Code(s): E11.9 - Type 2 diabetes mellitus without complications (3) Hypothyroidism Status: Chronic Current Visit: No Code(s): E03.9 - Hypothyroidism, unspecified (4) Overweight (BMI 25.0-29.9) Status: Chronic Current Visit: No Code(s): E66.3 - Overweight (5) Leg swelling Status: Chronic Current Visit: Yes Code(s): M79.89 - Other specified soft tissue disorders (6) Edema of both legs Status: Chronic Current Visit: Yes Code(s): R60.0 - Localized edema (7) Lower extremity ulceration Status: Chronic Current Visit: Yes Qualifiers: Laterality: right Non-pressure ulcer stage: with fat layer exposed Qualified Code(s): L97.912 - Non-pressure chronic ulcer of unspecified part of right lower leg with fat layer exposed Code(s): L97.909 - Non-pressure chronic ulcer of unspecified part of unspecified lower leg with unspecified severity (8) Essential (primary) hypertension Status: Chronic Current Visit: No Code(s): I10 - Essential (primary) hypertension (9) Angina pectoris Status: Chronic Current Visit: No Code(s): I20.9 - Angina pectoris, unspecified (10) NSTEMI (non-ST elevated myocardial infarction) Status: Chronic Current Visit: No Code(s): I21.4 - Non-ST elevation (NSTEMI) myocardial infarction (11) Anemia Status: Chronic Current Visit: No Code(s): D64.9 - Anemia, unspecified (12) 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 myocardial infarction Status: Chronic Current Visit: No Code(s): I25.2 - Old myocardial infarction (13) Atherosclerosis of coronary 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 Status: Chronic Current Visit: No Code(s): I25.810 - Atherosclerosis of coronary artery bypass graft(s) without angina pectoris Comment: HDA-NBI-DBD-D1 w/ 2.5 x 16 mm Promus Synergy Stent 02/03/19 QOL-OOA-Ghym-Mid OM1 w/ 2.25 x 12 mm Promus Premier 12/30/2013 WFD-VCF-ZUZ-Prox-Mid OM2 w/ 3.0 x 23 mm Promus Stent 03/05/2010 CJQ-MII-RIQ-OM2 w/ Taxus Stent 04/2006 CABG x 3 SVG to D1, SVG-OM & SVG-RCA (14) History of coronary artery stent placement Status: Chronic Current Visit: No Code(s): Z95.5 - Presence of coronary angioplasty implant and graft Comment: LYC-LAT-BKC-D1 w/ 2.5 x 16 mm Promus Synergy Stent 02/03/19 VUV-BKW-Usdu-Mid OM1 w/ 2.25 x 12 mm Promus Premier 12/30/2013 HOH-XCF-OSV-Prox-Mid OM2 w/ 3.0 x 23 mm Promus Stent 03/05/2010 LUI-QLH-ZAT-OM2 w/ Taxus Stent 04/2006 (15) H/O coronary artery bypass surgery Status: Chronic Current Visit: No Code(s): Z95.1 - Presence of aortocoronary bypass graft Comment: CABG x 3 SVG to D1, SVG-OM & SVG-RCA (16) SVT (supraventricular tachycardia) Status: Chronic Current Visit: No Code(s): I47.1 - Supraventricular tachycardia (17) HLD (hyperlipidemia) Status: Chronic Current Visit: No Qualifiers: Code(s): E78.5 - Hyperlipidemia, unspecified History of Present Illness Chief Complaint: Bilateral lower extremity swelling and edema with ulceration of the right lateral calf History of Wound: This is an 83-year-old female who presents with an ulceration on the right lateral calf which is said to have been present for approximately 1 month. Patient is unaware of any trauma or obvious cause of the ulceration. She does experience chronic swelling and edema in her lower extremities, typically worse at the end of the day. She claims to sleep on a flat mattress at night. She contracted legionnaires disease approximately 10 months ago, which has adversely affected her level of activity. She is generally inactive, spending long periods of time each day in an idle sitting position. She intermittently elevates her lower extremities. She relates that in the recent past she has had such severe swelling and edema in her lower extremities that fluid was dripping from the pores of her legs. Since her diagnosis of legionnaires disease, she has been much less active than previously, and has had weakness in her right lower extremity which has caused a decrease in her level of activity. She denies a history of thrombophlebitis. 2 weeks prior to her current presentation, a coronary artery stent was placed. Past Medical History Past Medical History: Chronic Problems (Last Updated 02/03/19 @ 18:53 by Luz Maria Stratton) Debility (Chronic) Diabetes mellitus (Chronic) Hypothyroidism (Chronic) Overweight (BMI 25.0-29.9) (Chronic) Leg swelling (Chronic) Edema of both legs (Chronic) Lower extremity ulceration (Chronic) Essential (primary) hypertension (Chronic) Angina pectoris (Chronic) NSTEMI (non-ST elevated myocardial infarction) (Chronic 02/03/19) Anemia (Chronic) 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) FOS-ULT-XJR-D1 w/ 2.5 x 16 mm Promus Synergy Stent 02/03/19 HFD-MDX-Uuzq-Mid OM1 w/ 2.25 x 12 mm Promus Premier 12/30/2013 XJN-MGA-NRI-Prox-Mid OM2 w/ 3.0 x 23 mm Promus Stent 03/05/2010 AIO-EHX-ETY-OM2 w/ Taxus Stent 04/2006 CABG x 3 SVG to D1, SVG-OM & SVG-RCA History of coronary artery stent placement (Chronic 02/03/19) MFU-IHK-KZJ-D1 w/ 2.5 x 16 mm Promus Synergy Stent 02/03/19 FMV-TYR-Zism-Mid OM1 w/ 2.25 x 12 mm Promus Premier 12/30/2013 TLU-FMI-AWV-Prox-Mid OM2 w/ 3.0 x 23 mm Promus Stent 03/05/2010 OEO-YHM-TTG-OM2 w/ Taxus Stent 04/2006 H/O coronary artery bypass surgery (Chronic 09/08/92) CABG x 3 SVG to D1, SVG-OM & SVG-RCA SVT (supraventricular tachycardia) (Chronic) HLD (hyperlipidemia) (Chronic) Surgical History: angioplasty, appendectomy, cholecystectomy, coronary bypass surgery, hysterectomy, - - Appendectomy, cholecystectomy, CABG x 3, PCI x 3, hysterectomy. Allergies/Adverse Reactions: Allergies No Known Allergies Allergy (Verified 11/13/18 03:25) Home Medications: Ambulatory Orders Medication Instructions Recorded Nitroglycerin (INPATIENT USE) 0.4 mg SUBLINGUAL Q5M PRN 12/21/13 [Nitrostat] ergocalciferol (vitamin D2) 50,000 50,000 unit PO QMONTH 11/18/17 unit capsule Aspirin [Aspirin, Baby] 81 mg PO DAILY@0800 07/30/18 isosorbide mononitrate ER 30 mg 30 mg PO QAM #90 tab 11/03/18 tablet,extended release 24 hr Furosemide 40 mg PO BID 11/13/18 Hydrocodone/Acetaminophen 0.5 tab PO BID PRN 11/13/18 [Hydrocodone-Acetamin 5-325 mg] metoprolol succinate ER 50 mg 50 mg PO DAILY #90 tab 11/17/18 tablet,extended release 24 hr Glipizide/Metformin HCl 2 tab PO BID 02/01/19 [Glipizide-Metformin 2.5-250 mg] Levothyroxine [Synthroid] 137 mcg PO DAILY 02/01/19 Potassium Chloride [Klor-Con M20] 20 meq PO TID 02/01/19 Atorvastatin Calcium [Lipitor] 40 mg PO QHS #30 tab 02/04/19 Clopidogrel Bisulfate [Plavix] 75 mg PO DAILY #30 tab 02/04/19 Insulin Glargine,Hum.rec.anlog 25 unit SUBCUT DAILY #0 ml 02/04/19 [Toujeo Max Solostar] Iron Polysaccharide Complex 150 mg PO DAILYCM #30 cap 02/04/19 [Ferrex 150] - Family History Maternal Family History: Family History (Last Reviewed 12/21/18 @ 10:34 by Ana Dupont) Mother Colon cancer Mother Heart disease Heart Disease Paternal Family History: Family History (Last Reviewed 12/21/18 @ 10:34 by Ana Dupont) Mother Colon cancer Mother Heart disease - - No marked paternal history of HD, CA, DM. The patient's father was killed in World War II. Smoking Status: Former smoker Tobacco Use: Non-smoker Review of Systems Constitutional: Denies: Chills, Fever, Weight Change Eyes: Denies: Pain, Vision Change HEENT: Denies: Difficulty Hearing, Difficulty Swallowing, Sinus Congestion Cardiovascular: Denies: Chest Pain, Palpitations Respiratory: Denies: Cough, Shortness of Breath Gastrointestinal: Denies: Diarrhea, Nausea, Vomiting Genitourinary: Denies: Dysuria, Hematuria Endocrine: Denies: Heat/ Cold Intolerance, Polydipsia, Polyuria Hematologic/ Lymphatic: Denies: Easy Bruising, Easy Bleeding - Physical Exam Vital Signs Temp Pulse Resp BP 97.1 F L 95 16 153/93 H 03/02/19 09:56 03/02/19 09:56 03/02/19 09:56 03/02/19 09:56 General: Alert, Oriented x3, Cooperative, No apparent distress, Well developed, Well nourished HEENT: Atraumatic, PERRLA, EOMI, Normocephalic Oral: Moist Mucosa Neck: No JVD Lungs: Normal air movement Abdomen: Non-Distended Extremities: No clubbing, No cyanosis, No Calf Tenderness, - - Swelling and edema are noted in the lower extremities bilaterally. The swelling and edema is more severe in the right lower extremity. It is moderate in severity. The ulceration on the right lateral calf persists. It is little changed in size or appearance. Dimensions are documented elsewhere. There is no sign of infection or cellulitis. The base of the ulceration is generally pink and healthy in appearance. There is only a mild amount of bioburden. Skin: No rashes Wound Measurements and Assessment WC - Nurse 1 - General Ulcer Measurement Start: 03/02/19 09:56 Freq: Status: Active Protocol: Activity Type Activity Date Activity User E-Sign Co-Sign Detail Recorded Client Recorded Date Recorded By Document 03/02/19 09:56 [id number] 03/02/19 10:01 CHAVO 03/02/19 09:56 Wound Center Nurse 1 [Ulcer Assessment] 2-right lateral maynard -Combined with other wound No -Current Size (cm) - Length 0.5 -Current Size (cm) - Width 0.5 -Current Size (cm) - Depth 0.1 -Total Square Cm 0.25 -Photo Taken No -Epithelialization Small 1-33% -Tunneling No -Undermining/Tunneling No -Circular Undermining No -Exudate Amt None Present -Granulation Amt Medium (34-66%) -Granulation Quality Red -Slough/Fibrin Yes -Necrosis Amt Small (1-33%) -Necrotic Tissue Type Adherent Slough -Structure Exposed N/A -Texture (Alessia-wound Skin Appearance) Assessed Localized Edema -Moisture (Alessia-wound Skin Appearance Assessed ) Dry/Scaly -Color (Alessia-wound Skin Appearance) Assessed -Temperature (Alessia-wound Skin No Abnormality Appearance) (Pt Warm) -Tenderness on Palpation (Alessia-wound No Skin Appearance) -Ulcer Cleansing Rinsed/ Irrigated with Saline -Foul Odor after Cleansing No -Anesthetic Used 5% Lidocaine Gel [Edema Assessment] -Lower Limb Edema Present Yes -Right Calf (cm) 36.9 -Right Ankle (cm) 27.5 -Left Calf (cm) 34.5 -Left Ankle (cm) 24.9 WC - Nurse 2 - General Ulcer CM Notes Start: 03/02/19 09:56 Freq: Status: Active Protocol: Activity Type Activity Date Activity User E-Sign Co-Sign Detail Recorded Client Recorded Date Recorded By Document 03/02/19 10:17 DV [id number] 03/02/19 10:23 DV 03/02/19 10:17 Wound Center Nurse 2 [Procedure/Treatment] 2-right lateral mayanrd -Time 10:18 -Correct Patient Yes -Correct Side, Site, Position Yes -Correct Procedure Yes -Procedure Performed Yes -Type of Procedure Debridement -Clinical Debridement Subcutaneous -Post Debridement Size (cm) - Length 0.5 -Post Debridement Size (cm) - Width 0.6 -Post Debridement Size (cm) - Depth 0.1 -Total Square Cm 0.30 -Wound/Ulcer Outcome Not Healed -Ulcer Cleansing Rinsed/ Irrigated with Saline -Foul Odor after Cleansing No -Bioengineered Tissue No -Bleeding Controlled with Pressure -Offloading No -Treatment Response Procedure Tolerated Well [See Physician Procedure note for Specifics] Pain Scale: 0-10 Numeric [Pain] -Is Patient Pain Free? Yes Neurological: Cranial nerves II-XII grossly intact, Neuro grossly intact Psych/Mental Status: Normal Affect, Appropriate, Alert and oriented to time, place, person, mood and affect Debridement Note Post-Debridement Measurements/Treatment [id number] - Nurse 2 - General Ulcer CM Notes Start: 03/02/19 09:56 Freq: Status: Active Protocol: Activity Type Activity Date Activity User E-Sign Co-Sign Detail Recorded Client Recorded Date Recorded By Document 03/02/19 10:17 DV [id number] 03/02/19 10:23 DV 03/02/19 10:17 Wound Center Nurse 2 2-right lateral maynard -Time 10:18 -Correct Patient Yes -Correct Side, Site, Position Yes -Correct Procedure Yes -Procedure Performed Yes -Type of Procedure Debridement -Clinical Debridement Subcutaneous -Post Debridement Size (cm) - Length 0.5 -Post Debridement Size (cm) - Width 0.6 -Post Debridement Size (cm) - Depth 0.1 -Total Square Cm 0.30 -Wound/Ulcer Outcome Not Healed -Ulcer Cleansing Rinsed/ Irrigated with Saline -Foul Odor after Cleansing No -Bioengineered Tissue No -Bleeding Controlled with Pressure -Offloading No -Treatment Response Procedure Tolerated Well Pain Scale: 0-10 Numeric Is Patient Pain Free? Yes Laterality: Right - Lateral calf Type of Debridement: Excisional debridement Anesthesia Used: 5% Lidocaine Gel Depth: Down to and including healthy tissue, in the subcutaneous layer Percentage of wound debrided: 100 Instrument Used: 3mm curette Tissue Removed: Bioburden Severity: Fat Layer Exposed Amount of bleeding with debridement: Mild Bleeding Controlled with: Compression and gauze Patient tolerated procedure well Assessment/Plan Active Problems (Last Updated 02/03/19 @ 18:53 by Luz Maria Stratton) Debility (Chronic) Diabetes mellitus (Chronic) Leg swelling (Chronic) Edema of both legs (Chronic) Lower extremity ulceration (Chronic) Assessment: This is an 83-year-old female who was in her normal state of health until approximately 10 to 12 months ago. She contracted legionnaires disease, which has resulted in debility and a decrease in her functional status. As result, she has been much less active than previously. She spends longer periods each day in an idle sitting position. She ambulates much less liberally. She does, however, sleep on a flat mattress at night. As result of her inactivity, and increasing periods of idle sitting, she has noted significant swelling and edema in her lower extremities. She presents now with an ulceration on the right lateral calf, suspected to be due to the swelling in her right lower extremity. Recent laboratory studies have been obtained, and results reviewed. Results are as follows: White blood count 12.1, hemoglobin 10.1, hematocrit 32.5, platelets 476,000, sodium 141, potassium 3.6, chloride 105, BUN 30, creatinine 1.53, calcium 9.3, magnesium 1.6, serum iron 24, TIBC 288, bilirubin 0.30, AST 7, ALT 16, alkaline phosphatase 66, total protein 7.0, albumin 3.0. Patient states that her daily blood sugars run between 120 and 150. Venous duplex examination has recently been performed, which revealed no evidence of lower extremity deep vein thrombosis. Valvular function was not completely assessed. 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 Plan: We are to implement a regimen of lifestyle changes. The patient has been encouraged to continue sleeping on a flat mattress at night. She has been encouraged to elevate her lower extremities as much as possible during daytime hours as well. Leg elevation is to be at heart level, or higher. She has been discouraged from prolonged, idle sitting. Activity has been encouraged as tolerated. We are to continue mild compression, using double layer Tubigrip's. Weight loss has been recommended. The patient has been advised to optimize her glycemic control, and to optimize her nutritional intake as well. Irma is to be continued topically, which will be changed either daily or every other day. Patient is to return in 1 week for reassessment. The patient is not a smoker. Influenza vaccine was not administered today. Patient weighs 159 pounds. She stands 5 feet 4 inches tall. Her BMI is 27.3, which places her in an overweight category. Weight loss has been recommended.
--- NOTE | 2019-03-02 10:36 | HP.PCM_ITS ---
(1) Debility Status: Chronic Current Visit: Yes Code(s): R53.81 - Other malaise (2) Diabetes mellitus Status: Chronic Current Visit: Yes Qualifiers: Diabetes mellitus type: type 2 Code(s): E11.9 - Type 2 diabetes mellitus without complications (3) Hypothyroidism Status: Chronic Current Visit: No Code(s): E03.9 - Hypothyroidism, unspecified (4) Overweight (BMI 25.0-29.9) Status: Chronic Current Visit: No Code(s): E66.3 - Overweight (5) Leg swelling Status: Chronic Current Visit: Yes Code(s): M79.89 - Other specified soft tissue disorders (6) Edema of both legs Status: Chronic Current Visit: Yes Code(s): R60.0 - Localized edema (7) Lower extremity ulceration Status: Chronic Current Visit: Yes Qualifiers: Laterality: right Non-pressure ulcer stage: with fat layer exposed Qualified Code(s): L97.912 - Non-pressure chronic ulcer of unspecified part of right lower leg with fat layer exposed Code(s): L97.909 - Non-pressure chronic ulcer of unspecified part of unspecified lower leg with unspecified severity (8) Essential (primary) hypertension Status: Chronic Current Visit: No Code(s): I10 - Essential (primary) hypertension (9) Angina pectoris Status: Chronic Current Visit: No Code(s): I20.9 - Angina pectoris, unspecified (10) NSTEMI (non-ST elevated myocardial infarction) Status: Chronic Current Visit: No Code(s): I21.4 - Non-ST elevation (NSTEMI) myocardial infarction (11) Anemia Status: Chronic Current Visit: No Code(s): D64.9 - Anemia, unspecified (12) 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 myocardial infarction Status: Chronic Current Visit: No Code(s): I25.2 - Old myocardial infarction (13) Atherosclerosis of coronary 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 Status: Chronic Current Visit: No Code(s): I25.810 - Atherosclerosis of coronary artery bypass graft(s) without angina pectoris Comment: RMC-VNW-HNS-D1 w/ 2.5 x 16 mm Promus Synergy Stent 02/03/19 ASG-AOE-Jzwu-Mid OM1 w/ 2.25 x 12 mm Promus Premier 12/30/2013 PMP-JWA-HUI-Prox-Mid OM2 w/ 3.0 x 23 mm Promus Stent 03/05/2010 YQN-TGQ-TYF-OM2 w/ Taxus Stent 04/2006 CABG x 3 SVG to D1, SVG-OM & SVG-RCA (14) History of coronary artery stent placement Status: Chronic Current Visit: No Code(s): Z95.5 - Presence of coronary angioplasty implant and graft Comment: PBV-JRL-EXY-D1 w/ 2.5 x 16 mm Promus Synergy Stent 02/03/19 GRU-JRP-Fbmp-Mid OM1 w/ 2.25 x 12 mm Promus Premier 12/30/2013 VTY-RPG-CQU-Prox-Mid OM2 w/ 3.0 x 23 mm Promus Stent 03/05/2010 DFQ-IVF-KJA-OM2 w/ Taxus Stent 04/2006 (15) H/O coronary artery bypass surgery Status: Chronic Current Visit: No Code(s): Z95.1 - Presence of aortocoronary bypass graft Comment: CABG x 3 SVG to D1, SVG-OM & SVG-RCA (16) SVT (supraventricular tachycardia) Status: Chronic Current Visit: No Code(s): I47.1 - Supraventricular tachycardia (17) HLD (hyperlipidemia) Status: Chronic Current Visit: No Qualifiers: Code(s): E78.5 - Hyperlipidemia, unspecified History of Present Illness Chief Complaint: Bilateral lower extremity swelling and edema with ulceration of the right lateral calf History of Wound: This is an 83-year-old female who presents with an ulceration on the right lateral calf which is said to have been present for approximately 1 month. Patient is unaware of any trauma or obvious cause of the ulceration. She does experience chronic swelling and edema in her lower extremities, typically worse at the end of the day. She claims to sleep on a flat mattress at night. She contracted legionnaires disease approximately 10 months ago, which has adversely affected her level of activity. She is generally inactive, spending long periods of time each day in an idle sitting position. She intermittently elevates her lower extremities. She relates that in the recent past she has had such severe swelling and edema in her lower extremities that fluid was dripping from the pores of her legs. Since her diagnosis of legionnaires disease, she has been much less active than previously, and has had weakness in her right lower extremity which has caused a decrease in her level of activity. She denies a history of thrombophlebitis. 2 weeks prior to her current presentation, a coronary artery stent was placed. Past Medical History Past Medical History: Chronic Problems (Last Updated 02/03/19 @ 18:53 by Luz Maria Stratton) Debility (Chronic) Diabetes mellitus (Chronic) Hypothyroidism (Chronic) Overweight (BMI 25.0-29.9) (Chronic) Leg swelling (Chronic) Edema of both legs (Chronic) Lower extremity ulceration (Chronic) Essential (primary) hypertension (Chronic) Angina pectoris (Chronic) NSTEMI (non-ST elevated myocardial infarction) (Chronic 02/03/19) Anemia (Chronic) 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) LIL-XZZ-DVA-D1 w/ 2.5 x 16 mm Promus Synergy Stent 02/03/19 CBB-IAQ-Mmaq-Mid OM1 w/ 2.25 x 12 mm Promus Premier 12/30/2013 SQK-XQW-NOP-Prox-Mid OM2 w/ 3.0 x 23 mm Promus Stent 03/05/2010 UQR-XET-GHR-OM2 w/ Taxus Stent 04/2006 CABG x 3 SVG to D1, SVG-OM & SVG-RCA History of coronary artery stent placement (Chronic 02/03/19) ULK-GSY-NHD-D1 w/ 2.5 x 16 mm Promus Synergy Stent 02/03/19 AZX-LEI-Xzrb-Mid OM1 w/ 2.25 x 12 mm Promus Premier 12/30/2013 OEZ-MDR-JHQ-Prox-Mid OM2 w/ 3.0 x 23 mm Promus Stent 03/05/2010 BAC-BXM-TRK-OM2 w/ Taxus Stent 04/2006 H/O coronary artery bypass surgery (Chronic 09/08/92) CABG x 3 SVG to D1, SVG-OM & SVG-RCA SVT (supraventricular tachycardia) (Chronic) HLD (hyperlipidemia) (Chronic) Surgical History: angioplasty, appendectomy, cholecystectomy, coronary bypass surgery, hysterectomy, - - Appendectomy, cholecystectomy, CABG x 3, PCI x 3, h ysterectomy. Allergies/Adverse Reactions: Allergies No Known Allergies Allergy (Verified 11/13/18 03:25) Home Medications: Ambulatory Orders Medication Instructions Recorded Nitroglycerin (INPATIENT USE) 0.4 mg SUBLINGUAL Q5M PRN 12/21/13 [Nitrostat] ergocalciferol (vitamin D2) 50,000 50,000 unit PO QMONTH 11/18/17 unit capsule Aspirin [Aspirin, Baby] 81 mg PO DAILY@0800 07/30/18 isosorbide mononitrate ER 30 mg 30 mg PO QAM #90 tab 11/03/18 tablet,extended release 24 hr Furosemide 40 mg PO BID 11/13/18 Hydrocodone/Acetaminophen 0.5 tab PO BID PRN 11/13/18 [Hydrocodone-Acetamin 5-325 mg] metoprolol succinate ER 50 mg 50 mg PO DAILY #90 tab 11/17/18 tablet,extended release 24 hr Glipizide/Metformin HCl 2 tab PO BID 02/01/19 [Glipizide-Metformin 2.5-250 mg] Levothyroxine [Synthroid] 137 mcg PO DAILY 02/01/19 Potassium Chloride [Klor-Con M20] 20 meq PO TID 02/01/19 Atorvastatin Calcium [Lipitor] 40 mg PO QHS #30 tab 02/04/19 Clopidogrel Bisulfate [Plavix] 75 mg PO DAILY #30 tab 02/04/19 Insulin Glargine,Hum.rec.anlog 25 unit SUBCUT DAILY #0 ml 02/04/19 [Toujeo Max Solostar] Iron Polysaccharide Complex 150 mg PO DAILYCM #30 cap 02/04/19 [Ferrex 150] - Family History Maternal Family History: Family History (Last Reviewed 12/21/18 @ 10:34 by Ana Dupont) Mother Colon cancer Mother Heart disease Heart Disease Paternal Family History: Family History (Last Reviewed 12/21/18 @ 10:34 by Ana Dupont) Mother Colon cancer Mother Heart disease - - No marked paternal history of HD, CA, DM. The patient's father was killed in World War II. Smoking Status: Former smoker Tobacco Use: Non-smoker Review of Systems Constitutional: Denies: Chills, Fever, Weight Change Eyes: Denies: Pain, Vision Change HEENT: Denies: Difficulty Hearing, Difficulty Swallowing, Sinus Congestion Cardiovascular: Denies: Chest Pain, Palpitations Respiratory: Denies: Cough, Shortness of Breath Gastrointestinal: Denies: Diarrhea, Nausea, Vomiting Genitourinary: Denies: Dysuria, Hematuria Endocrine: Denies: Heat/ Cold Intolerance, Polydipsia, Polyuria Hematologic/ Lymphatic: Denies: Easy Bruising, Easy Bleeding - Physical Exam Vital Signs Temp Pulse Resp BP 97.1 F L 95 16 153/93 H 03/02/19 09:56 03/02/19 09:56 03/02/19 09:56 03/02/19 09:56 General: Alert, Oriented x3, Cooperative, No apparent distress, Well developed, Well nourished HEENT: Atraumatic, PERRLA, EOMI, Normocephalic Oral: Moist Mucosa Neck: No JVD Lungs: Normal air movement Abdomen: Non-Distended Extremities: No clubbing, No cyanosis, No Calf Tenderness, - - Swelling and edema are noted in the lower extremities bilaterally. The swelling and edema is more severe in the right lower extremity. It is moderate in severity. The ulceration on the right lateral calf persists. It is little changed in size or appearance. Dimensions are documented elsewhere. There is no sign of infection or cellulitis. The base of the ulceration is generally pink and healthy in appearance. There is only a mild amount of bioburden. Skin: No rashes Wound Measurements and Assessment WC - Nurse 1 - General Ulcer Measurement Start: 03/02/19 09:56 Freq: Status: Active Protocol: Activity Type Activity Date Activity User E-Sign Co-Sign Detail Recorded Client Recorded Date Recorded By Document 03/02/19 09:56 [id number] 03/02/19 10:01 CHAVO 03/02/19 09:56 Wound Center Nurse 1 [Ulcer Assessment] 2-right lateral maynard -Combined with other wound No -Current Size (cm) - Length 0.5 -Current Size (cm) - Width 0.5 -Current Size (cm) - Depth 0.1 -Total Square Cm 0.25 -Photo Taken No -Epithelialization Small 1-33% -Tunneling No -Undermining/Tunneling No -Circular Undermining No -Exudate Amt None Present -Granulation Amt Medium (34-66%) -Granulation Quality Red -Slough/Fibrin Yes -Necrosis Amt Small (1-33%) -Necrotic Tissue Type Adherent Slough -Structure Exposed N/A -Texture (Alessia-wound Skin Appearance) Assessed Localized Edema -Moisture (Alessia-wound Skin Appearance Assessed ) Dry/Scaly -Color (Alessia-wound Skin Appearance) Assessed -Temperature (Alessia-wound Skin No Abnormality Appearance) (Pt Warm) -Tenderness on Palpation (Alessia-wound No Skin Appearance) -Ulcer Cleansing Rinsed/ Irrigated with Saline -Foul Odor after Cleansing No -Anesthetic Used 5% Lidocaine Gel [Edema Assessment] -Lower Limb Edema Present Yes -Right Calf (cm) 36.9 -Right Ankle (cm) 27.5 -Left Calf (cm) 34.5 -Left Ankle (cm) 24.9 WC - Nurse 2 - General Ulcer CM Notes Start: 03/02/19 09:56 Freq: Status: Active Protocol: Activity Type Activity Date Activity User E-Sign Co-Sign Detail Recorded Client Recorded Date Recorded By Document 03/02/19 10:17 DV [id number] 03/02/19 10:23 DV 03/02/19 10:17 Wound Center Nurse 2 [Procedure/Treatment] 2-right lateral maynard -Time 10:18 -Correct Patient Yes -Correct Side, Site, Position Yes -Correct Procedure Yes -Procedure Performed Yes -Type of Procedure Debridement -Clinical Debridement Subcutaneous -Post Debridement Size (cm) - Length 0.5 -Post Debridement Size (cm) - Width 0.6 -Post Debridement Size (cm) - Depth 0.1 -Total Square Cm 0.30 -Wound/Ulcer Outcome Not Healed -Ulcer Cleansing Rinsed/ Irrigated with Saline -Foul Odor after Cleansing No -Bioengineered Tissue No -Bleeding Controlled with Pressure -Offloading No -Treatment Response Procedure Tolerated Well [See Physician Procedure note for Specifics] Pain Scale: 0-10 Numeric [Pain] -Is Patient Pain Free? Yes Neurological: Cranial nerves II-XII grossly intact, Neuro grossly intact Psych/Mental Status: Normal Affect, Appropriate, Alert and oriented to time, place, person, mood and affect Debridement Note Post-Debridement Measurements/Treatment WC - Nurse 2 - General Ulcer CM Notes Start: 03/02/19 09:56 Freq: Status: Active Protocol: Activity Type Activity Date Activity User E-Sign Co-Sign Detail Recorded Client Recorded Date Recorded By Document 03/02/19 10:17 DV [id number] 03/02/19 10:23 DV 03/02/19 10:17 Wound Center Nurse 2 2-right lateral maynard -Time 10:18 -Correct Patient Yes -Correct Side, Site, Position Yes -Correct Procedure Yes -Procedure Performed Yes -Type of Procedure Debridement -Clinical Debridement Subcutaneous -Post Debridement Size (cm) - Length 0.5 -Post Debridement Size (cm) - Width 0.6 -Post Debridement Size (cm) - Depth 0.1 -Total Square Cm 0.30 -Wound/Ulcer Outcome Not Healed -Ulcer Cleansing Rinsed/ Irrigated with Saline -Foul Odor after Cleansing No -Bioengineered Tissue No -Bleeding Controlled with Pressure -Offloading No -Treatment Response Procedure Tolerated Well Pain Scale: 0-10 Numeric Is Patient Pain Free? Yes Laterality: Right - Lateral calf Type of Debridement: Excisional debridement Anesthesia Used: 5% Lidocaine Gel Depth: Down to and including healthy tissue, in the subcutaneous layer Percentage of wound debrided: 100 Instrument Used: 3mm curette Tissue Removed: Bioburden Severity: Fat Layer Exposed Amount of bleeding with debridement: Mild Bleeding Controlled with: Compression and gauze Patient tolerated procedure well Assessment/Plan Active Problems (Last Updated 02/03/19 @ 18:53 by Luz Maria Stratton) Debility (Chronic) Diabetes mellitus (Chronic) Leg swelling (Chronic) Edema of both legs (Chronic) Lower extremity ulceration (Chronic) Assessment: This is an 83-year-old female who was in her normal state of health until approximately 10 to 12 months ago. She contracted legionnaires disease, which has resulted in debility and a decrease in her functional status. As result, she has been much less active than previously. She spends longer periods each day in an idle sitting position. She ambulates much less liberally. She does, however, sleep on a flat mattress at night. As result of her inactivity, and increasing periods of idle sitting, she has noted significant swelling and edema in her lower extremities. She presents now with an ulceration on the right lateral calf, suspected to be due to the swelling in her right lower extremity. Recent laboratory studies have been obtained, and results reviewed. Results are as follows: White blood count 12.1, hemoglobin 10.1, hematocrit 32.5, platelets 476,000, sodium 141, potassium 3.6, chloride 105, BUN 30, creatinine 1.53, calcium 9.3, magnesium 1.6, serum iron 24, TIBC 288, bilirubin 0.30, AST 7, ALT 16, alkaline phosphatase 66, total protein 7.0, albumin 3.0. Patient states that her daily blood sugars run between 120 and 150. Venous duplex examination has recently been performed, which revealed no evidence of lower extremity deep vein thrombosis. Valvular function was not completely assessed. 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 Plan: We are to implement a regimen of lifestyle changes. The patient has been encouraged to continue sleeping on a flat mattress at night. She has been encouraged to elevate her lower extremities as much as possible during daytime hours as well. Leg elevation is to be at heart level, or higher. She has been discouraged from prolonged, idle sitting. Activity has been encouraged as tolerated. We are to continue mild compression, using double layer Tubigrip's. Weight loss has been recommended. The patient has been advised to optimize her glycemic control, and to optimize her nutritional intake as well. Irma is to be continued topically, which will be changed either daily or every other day. Patient is to return in 1 week for reassessment. The patient is not a smoker. Influenza vaccine was not administered today. Patient weighs 159 pounds. She stands 5 feet 4 inches tall. Her BMI is 27.3, which places her in an overweight category. Weight loss has been recommended.
[2019-03-09 10:24] VITALS: BP 174/98; PULSE 103; RESP 16; TEMP 35.9; BMI 26.7
--- NOTE | 2019-03-09 11:30 | PCM.WC.HP ---
(1) Debility Status: Chronic Current Visit: Yes Code(s): R53.81 - Other malaise (2) Diabetes mellitus Status: Chronic Current Visit: Yes Qualifiers: Diabetes mellitus type: type 2 Code(s): E11.9 - Type 2 diabetes mellitus without complications (3) Hypothyroidism Status: Chronic Current Visit: No Code(s): E03.9 - Hypothyroidism, unspecified (4) Overweight (BMI 25.0-29.9) Status: Chronic Current Visit: No Code(s): E66.3 - Overweight (5) Leg swelling Status: Chronic Current Visit: Yes Code(s): M79.89 - Other specified soft tissue disorders (6) Edema of both legs Status: Chronic Current Visit: Yes Code(s): R60.0 - Localized edema (7) Lower extremity ulceration Status: Chronic Current Visit: Yes Qualifiers: Laterality: right Non-pressure ulcer stage: with fat layer exposed Qualified Code(s): L97.912 - Non-pressure chronic ulcer of unspecified part of right lower leg with fat layer exposed Code(s): L97.909 - Non-pressure chronic ulcer of unspecified part of unspecified lower leg with unspecified severity (8) Essential (primary) hypertension Status: Chronic Current Visit: No Code(s): I10 - Essential (primary) hypertension (9) Angina pectoris Status: Chronic Current Visit: No Code(s): I20.9 - Angina pectoris, unspecified (10) NSTEMI (non-ST elevated myocardial infarction) Status: Chronic Current Visit: No Code(s): I21.4 - Non-ST elevation (NSTEMI) myocardial infarction (11) Anemia Status: Chronic Current Visit: No Code(s): D64.9 - Anemia, unspecified (12) 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 myocardial infarction Status: Chronic Current Visit: No Code(s): I25.2 - Old myocardial infarction (13) Atherosclerosis of coronary 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 Status: Chronic Current Visit: No Code(s): I25.810 - Atherosclerosis of coronary artery bypass graft(s) without angina pectoris Comment: XSI-RQD-SEB-D1 w/ 2.5 x 16 mm Promus Synergy Stent 02/03/19 GYC-SBN-Icpj-Mid OM1 w/ 2.25 x 12 mm Promus Premier 12/30/2013 VNX-BXB-KGW-Prox-Mid OM2 w/ 3.0 x 23 mm Promus Stent 03/05/2010 BMY-MJG-YEZ-OM2 w/ Taxus Stent 04/2006 CABG x 3 SVG to D1, SVG-OM & SVG-RCA (14) History of coronary artery stent placement Status: Chronic Current Visit: No Code(s): Z95.5 - Presence of coronary angioplasty implant and graft Comment: NQY-TPD-EMV-D1 w/ 2.5 x 16 mm Promus Synergy Stent 02/03/19 CHP-CUM-Hyop-Mid OM1 w/ 2.25 x 12 mm Promus Premier 12/30/2013 VCE-IUU-DFB-Prox-Mid OM2 w/ 3.0 x 23 mm Promus Stent 03/05/2010 OWX-HRL-JLC-OM2 w/ Taxus Stent 04/2006 (15) H/O coronary artery bypass surgery Status: Chronic Current Visit: No Code(s): Z95.1 - Presence of aortocoronary bypass graft Comment: CABG x 3 SVG to D1, SVG-OM & SVG-RCA (16) SVT (supraventricular tachycardia) Status: Chronic Current Visit: No Code(s): I47.1 - Supraventricular tachycardia (17) HLD (hyperlipidemia) Status: Chronic Current Visit: No Qualifiers: Code(s): E78.5 - Hyperlipidemia, unspecified History of Present Illness Date of Service: 03/09/19 Chief Complaint: Bilateral lower extremity swelling and edema with ulceration of the right lateral calf History of Wound: This is an 83-year-old female who presents with an ulceration on the right lateral calf which is said to have been present for approximately 1 month. Patient is unaware of any trauma or obvious cause of the ulceration. She does experience chronic swelling and edema in her lower extremities, typically worse at the end of the day. She claims to sleep on a flat mattress at night. She contracted legionnaires disease approximately 10 months ago, which has adversely affected her level of activity. She is generally inactive, spending long periods of time each day in an idle sitting position. She intermittently elevates her lower extremities. She relates that in the recent past she has had such severe swelling and edema in her lower extremities that fluid was dripping from the pores of her legs. Since her diagnosis of legionnaires disease, she has been much less active than previously, and has had weakness in her right lower extremity which has caused a decrease in her level of activity. She denies a history of thrombophlebitis. 2 weeks prior to her current presentation, a coronary artery stent was placed. Past Medical History Past Medical History: Chronic Problems (Last Updated 02/03/19 @ 18:53 by Luz Maria Stratton) Debility (Chronic) Diabetes mellitus (Chronic) Hypothyroidism (Chronic) Overweight (BMI 25.0-29.9) (Chronic) Leg swelling (Chronic) Edema of both legs (Chronic) Lower extremity ulceration (Chronic) Essential (primary) hypertension (Chronic) Angina pectoris (Chronic) NSTEMI (non-ST elevated myocardial infarction) (Chronic 02/03/19) Anemia (Chronic) 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) KWH-JCU-SXC-D1 w/ 2.5 x 16 mm Promus Synergy Stent 02/03/19 YPV-UWS-Vsus-Mid OM1 w/ 2.25 x 12 mm Promus Premier 12/30/2013 WSJ-NPX-GMY-Prox-Mid OM2 w/ 3.0 x 23 mm Promus Stent 03/05/2010 CDM-CCD-NFX-OM2 w/ Taxus Stent 04/2006 CABG x 3 SVG to D1, SVG-OM & SVG-RCA History of coronary artery stent placement (Chronic 02/03/19) ZNW-PYL-HMO-D1 w/ 2.5 x 16 mm Promus Synergy Stent 02/03/19 GDR-MVI-Kfrs-Mid OM1 w/ 2.25 x 12 mm Promus Premier 12/30/2013 RKP-PLY-JHN-Prox-Mid OM2 w/ 3.0 x 23 mm Promus Stent 03/05/2010 YTV-YLW-KMX-OM2 w/ Taxus Stent 04/2006 H/O coronary artery bypass surgery (Chronic 09/08/92) CABG x 3 SVG to D1, SVG-OM & SVG-RCA SVT (supraventricular tachycardia) (Chronic) HLD (hyperlipidemia) (Chronic) Surgical History: angioplasty, appendectomy, cholecystectomy, coronary bypass surgery, hysterectomy, - - Appendectomy, cholecystectomy, CABG x 3, PCI x 3, hysterectomy. Allergies/Adverse Reactions: Allergies No Known Allergies Allergy (Verified 11/13/18 03:25) Home Medications: Ambulatory Orders Medication Instructions Recorded Nitroglycerin (INPATIENT USE) 0.4 mg SUBLINGUAL Q5M PRN 12/21/13 [Nitrostat] ergocalciferol (vitamin D2) 50,000 50,000 unit PO QMONTH 11/18/17 unit capsule Aspirin [Aspirin, Baby] 81 mg PO DAILY@0800 07/30/18 isosorbide mononitrate ER 30 mg 30 mg PO QAM #90 tab 11/03/18 tablet,extended release 24 hr Furosemide 40 mg PO BID 11/13/18 Hydrocodone/Acetaminophen 0.5 tab PO BID PRN 11/13/18 [Hydrocodone-Acetamin 5-325 mg] metoprolol succinate ER 50 mg 50 mg PO DAILY #90 tab 11/17/18 tablet,extended release 24 hr Glipizide/Metformin HCl 2 tab PO BID 02/01/19 [Glipizide-Metformin 2.5-250 mg] Levothyroxine [Synthroid] 137 mcg PO DAILY 02/01/19 Potassium Chloride [Klor-Con M20] 20 meq PO TID 02/01/19 Atorvastatin Calcium [Lipitor] 40 mg PO QHS #30 tab 02/04/19 Clopidogrel Bisulfate [Plavix] 75 mg PO DAILY #30 tab 02/04/19 Insulin Glargine,Hum.rec.anlog 25 unit SUBCUT DAILY #0 ml 02/04/19 [Toumitzyo Max Solostar] Iron Polysaccharide Complex 150 mg PO DAILYCM #30 cap 02/04/19 [Ferrex 150] - Family History Maternal Family History: Family History (Last Reviewed 12/21/18 @ 10:34 by Ana Dupont) Mother Colon cancer Mother Heart disease Heart Disease Paternal Family History: Family History (Last Reviewed 12/21/18 @ 10:34 by Ana Dupont) Mother Colon cancer Mother Heart disease - - No marked paternal history of HD, CA, DM. The patient's father was killed in World War II. Smoking Status: Former smoker Tobacco Use: Non-smoker Review of Systems Constitutional: Denies: Chills, Fever, Weight Change Eyes: Denies: Pain, Vision Change HEENT: Denies: Difficulty Hearing, Difficulty Swallowing, Sinus Congestion Cardiovascular: Denies: Chest Pain, Palpitations Respiratory: Denies: Cough, Shortness of Breath Gastrointestinal: Denies: Diarrhea, Nausea, Vomiting Genitourinary: Denies: Dysuria, Hematuria Endocrine: Denies: Heat/ Cold Intolerance, Polydipsia, Polyuria Hematologic/ Lymphatic: Denies: Easy Bruising, Easy Bleeding - Physical Exam Vital Signs Temp Pulse Resp BP 96.6 F L 103 H 16 174/98 H 03/09/19 10:24 03/09/19 10:24 03/09/19 10:24 03/09/19 10:24 General: Alert, Oriented x3, Cooperative, No apparent distress, Well developed, Well nourished HEENT: Atraumatic, PERRLA, EOMI, Normocephalic Oral: Moist Mucosa Neck: No JVD Lungs: Normal air movement Abdomen: Non-Distended Extremities: No clubbing, No cyanosis, No Calf Tenderness, - - Mild bilateral lower extremity swelling and edema are noted. The ulceration on the right lateral calf persists. Dimensions are documented elsewhere. There is no sign of infection or cellulitis. There is a mild amount of bioburden. Wound Measurements and Assessment WC - Nurse 1 - General Ulcer Measurement Start: 03/02/19 09:56 Freq: Status: Active Protocol: Activity Type Activity Date Activity User E-Sign Co-Sign Detail Recorded Client Recorded Date Recorded By Document 03/09/19 10:24 [facility] [id number] 03/09/19 10:26 [facility] 03/09/19 10:24 Wound Center Nurse 1 [Ulcer Assessment] 2-right lateral maynard -Combined with other wound No -Current Size (cm) - Length 0.1 -Current Size (cm) - Width 0.1 -Current Size (cm) - Depth 0.1 -Total Square Cm 0.01 -Photo Taken No -Epithelialization Large 67-100% -Tunneling No -Undermining/Tunneling No -Circular Undermining No -Exudate Amt None Present -Wound Margin Distinct, Outline Attached -Texture (Alessia-wound Skin Appearance) Assessed Scarring -Moisture (Alessia-wound Skin Appearance Assessed ) Dry/Scaly -Color (Alessia-wound Skin Appearance) Assessed -Temperature (Alessia-wound Skin No Abnormality Appearance) (Pt Warm) -Tenderness on Palpation (Alessia-wound No Skin Appearance) -Ulcer Cleansing Rinsed/ Irrigated with Saline -Foul Odor after Cleansing No -Anesthetic Used 5% Lidocaine Gel [Edema Assessment] -Lower Limb Edema Present Yes -Right Calf (cm) 38 -Right Ankle (cm) 28.5 -Left Calf (cm) 36 -Left Ankle (cm) 26.1 WC - Nurse 2 - General Ulcer CM Notes Start: 03/02/19 09:56 Freq: Status: Active Protocol: Activity Type Activity Date Activity User E-Sign Co-Sign Detail Recorded Client Recorded Date Recorded By Document 03/09/19 11:22 DV [id number] 03/09/19 11:27 DV 03/09/19 11:22 Wound Center Nurse 2 [Procedure/Treatment] 2-right lateral maynard -Time 11:23 -Correct Patient Yes -Correct Side, Site, Position Yes -Correct Procedure Yes -Procedure Performed Yes -Type of Procedure Debridement -Clinical Debridement Subcutaneous -Post Debridement Size (cm) - Length 0.5 -Post Debridement Size (cm) - Width 0.5 -Post Debridement Size (cm) - Depth 0.2 -Total Square Cm 0.25 -Wound/Ulcer Outcome Not Healed -Ulcer Cleansing Rinsed/ Irrigated with Saline -Foul Odor after Cleansing No -Bioengineered Tissue No -Bleeding Controlled with Pressure -Offloading No -Treatment Response Procedure Tolerated Well [See Physician Procedure note for Specifics] Pain Scale: 0-10 Numeric [Pain] -Is Patient Pain Free? Yes Neurological: Cranial nerves II-XII grossly intact, Neuro grossly intact Psych/Mental Status: Normal Affect, Appropriate, Alert and oriented to time, place, person, mood and affect Debridement Note Post-Debridement Measurements/Treatment WC - Nurse 2 - General Ulcer CM Notes Start: 03/02/19 09:56 Freq: Status: Active Protocol: Activity Type Activity Date Activity User E-Sign Co-Sign Detail Recorded Client Recorded Date Recorded By Document 03/02/19 10:17 DV [id number] 03/02/19 10:23 DV Document 03/09/19 11:22 DV [id number] 03/09/19 11:27 DV 03/02/19 03/09/19 10:17 11:22 Wound Center Nurse 2 2-right lateral maynard -Time 10:18 11:23 -Correct Patient Yes Yes -Correct Side, Site, Position Yes Yes -Correct Procedure Yes Yes -Procedure Performed Yes Yes -Type of Procedure Debridement Debridement -Clinical Debridement Subcutaneous Subcutaneous -Post Debridement Size (cm) - Length 0.5 0.5 -Post Debridement Size (cm) - Width 0.6 0.5 -Post Debridement Size (cm) - Depth 0.1 0.2 -Total Square Cm 0.30 0.25 -Wound/Ulcer Outcome Not Healed Not Healed -Ulcer Cleansing Rinsed/ Rinsed/ Irrigated with Irrigated with Saline Saline -Foul Odor after Cleansing No No -Bioengineered Tissue No No -Bleeding Controlled with Pressure Pressure -Offloading No No -Treatment Response Procedure Procedure Tolerated Well Tolerated Well Pain Scale: 0-10 Numeric Is Patient Pain Free? Yes Yes Laterality: Right - Lateral calf Type of Debridement: Excisional debridement Anesthesia Used: 5% Lidocaine Gel Depth: Down to and including healthy tissue, in the subcutaneous layer Percentage of wound debrided: 100 Instrument Used: 5mm curette Tissue Removed: Bioburden and nonviable tissue Severity: Fat Layer Exposed Amount of bleeding with debridement: Mild Bleeding Controlled with: Compression and gauze Patient tolerated procedure well Assessment/Plan Active Problems (Last Updated 02/03/19 @ 18:53 by Luz Maria Stratton) Debility (Chronic) Diabetes mellitus (Chronic) Leg swelling (Chronic) Edema of both legs (Chronic) Lower extremity ulceration (Chronic) Assessment: This is an 83-year-old female who was in her normal state of health until approximately 10 to 12 months prior to presentation. She contracted legionnaires disease, which has resulted in debility and a decrease in her functional status. As result, she has been much less active than previously. She spends longer periods each day in an idle sitting position. She ambulates much less liberally. She does, however, sleep on a flat mattress at night. As result of her inactivity, and increasing periods of idle sitting, she has noted significant swelling and edema in her lower extremities. She presented with an ulceration on the right lateral calf, suspected to be due to the swelling in her right lower extremity. Recent laboratory studies have been obtained, and results reviewed. Results are as follows: White blood count 12.1, hemoglobin 10.1, hematocrit 32.5, platelets 476,000, sodium 141, potassium 3.6, chloride 105, BUN 30, creatinine 1.53, calcium 9.3, magnesium 1.6, serum iron 24, TIBC 288, bilirubin 0.30, AST 7, ALT 16, alkaline phosphatase 66, total protein 7.0, albumin 3.0. Patient states that her daily blood sugars run between 120 and 150. Venous duplex examination has recently been performed, which revealed no evidence of lower extremity deep vein thrombosis. Valvular function was not completely assessed. 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 Plan: We are to continue a regimen of conservative treatment involving lifestyle changes. The patient has been encouraged to continue sleeping on a flat mattress at night. She has been encouraged to elevate her lower extremities as much as possible during daytime hours as well. Leg elevation is to be at heart level, or higher. She has been discouraged from prolonged, idle sitting. Activity has been encouraged as tolerated. We are to continue mild compression, using the equivalent of a Profore Lite wrap, which will be changed twice weekly. We will remain conservative in the amount of compression implemented, due to the findings on the patient's arterial study, suggesting the presence of moderate arterial occlusive disease. Weight loss has been recommended. The patient has been advised to optimize her glycemic control, and to optimize her nutritional intake as well. Irma is to be continued topically, which will be changed with each change of her compression wrap twice weekly. Patient is to return in 1 week for reassessment. The patient is not a smoker. Influenza vaccine was not administered today. Patient weighs 159 pounds. She stands 5 feet 4 inches tall. Her BMI is 27.3, which places her in an overweight category. Weight loss has been recommended.
--- NOTE | 2019-03-09 11:34 | HP.PCM_ITS ---
(1) Debility Status: Chronic Current Visit: Yes Code(s): R53.81 - Other malaise (2) Diabetes mellitus Status: Chronic Current Visit: Yes Qualifiers: Diabetes mellitus type: type 2 Code(s): E11.9 - Type 2 diabetes mellitus without complications (3) Hypothyroidism Status: Chronic Current Visit: No Code(s): E03.9 - Hypothyroidism, unspecified (4) Overweight (BMI 25.0-29.9) Status: Chronic Current Visit: No Code(s): E66.3 - Overweight (5) Leg swelling Status: Chronic Current Visit: Yes Code(s): M79.89 - Other specified soft tissue disorders (6) Edema of both legs Status: Chronic Current Visit: Yes Code(s): R60.0 - Localized edema (7) Lower extremity ulceration Status: Chronic Current Visit: Yes Qualifiers: Laterality: right Non-pressure ulcer stage: with fat layer exposed Qualified Code(s): L97.912 - Non-pressure chronic ulcer of unspecified part of right lower leg with fat layer exposed Code(s): L97.909 - Non-pressure chronic ulcer of unspecified part of unspecified lower leg with unspecified severity (8) Essential (primary) hypertension Status: Chronic Current Visit: No Code(s): I10 - Essential (primary) hypertension (9) Angina pectoris Status: Chronic Current Visit: No Code(s): I20.9 - Angina pectoris, unspecified (10) NSTEMI (non-ST elevated myocardial infarction) Status: Chronic Current Visit: No Code(s): I21.4 - Non-ST elevation (NSTEMI) myocardial infarction (11) Anemia Status: Chronic Current Visit: No Code(s): D64.9 - Anemia, unspecified (12) 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 myocardial infarction Status: Chronic Current Visit: No Code(s): I25.2 - Old myocardial infarction (13) Atherosclerosis of coronary 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 Status: Chronic Current Visit: No Code(s): I25.810 - Atherosclerosis of coronary artery bypass graft(s) without angina pectoris Comment: OSZ-MJZ-BAH-D1 w/ 2.5 x 16 mm Promus Synergy Stent 02/03/19 IVF-ZXU-Gvks-Mid OM1 w/ 2.25 x 12 mm Promus Premier 12/30/2013 HPP-ZZZ-CIO-Prox-Mid OM2 w/ 3.0 x 23 mm Promus Stent 03/05/2010 XJS-BZQ-QNS-OM2 w/ Taxus Stent 04/2006 CABG x 3 SVG to D1, SVG-OM & SVG-RCA (14) History of coronary artery stent placement Status: Chronic Current Visit: No Code(s): Z95.5 - Presence of coronary angioplasty implant and graft Comment: WFT-UCB-IUY-D1 w/ 2.5 x 16 mm Promus Synergy Stent 02/03/19 XLS-HKF-Xfuj-Mid OM1 w/ 2.25 x 12 mm Promus Premier 12/30/2013 TCM-VDY-LPT-Prox-Mid OM2 w/ 3.0 x 23 mm Promus Stent 03/05/2010 YCY-EAO-RGG-OM2 w/ Taxus Stent 04/2006 (15) H/O coronary artery bypass surgery Status: Chronic Current Visit: No Code(s): Z95.1 - Presence of aortocoronary bypass graft Comment: CABG x 3 SVG to D1, SVG-OM & SVG-RCA (16) SVT (supraventricular tachycardia) Status: Chronic Current Visit: No Code(s): I47.1 - Supraventricular tachycardia (17) HLD (hyperlipidemia) Status: Chronic Current Visit: No Qualifiers: Code(s): E78.5 - Hyperlipidemia, unspecified History of Present Illness Date of Service: 03/09/19 Chief Complaint: Bilateral lower extremity swelling and edema with ulceration of the right lateral calf History of Wound: This is an 83-year-old female who presents with an ulceration on the right lateral calf which is said to have been present for approximately 1 month. Patient is unaware of any trauma or obvious cause of the ulceration. S he does experience chronic swelling and edema in her lower extremities, typically worse at the end of the day. She claims to sleep on a flat mattress at night. She contracted legionnaires disease approximately 10 months ago, which has adversely affected her level of activity. She is generally inactive, spending long periods of time each day in an idle sitting position. She intermittently elevates her lower extremities. She relates that in the recent past she has had such severe swelling and edema in her lower extremities that fluid was dripping from the pores of her legs. Since her diagnosis of legionnaires disease, she has been much less active than previously, and has had weakness in her right lower extremity which has caused a decrease in her level of activity. She denies a history of thrombophlebitis. 2 weeks prior to her current presentation, a coronary artery stent was placed. Past Medical History Past Medical History: Chronic Problems (Last Updated 02/03/19 @ 18:53 by Luz Maria Stratton) Debility (Chronic) Diabetes mellitus (Chronic) Hypothyroidism (Chronic) Overweight (BMI 25.0-29.9) (Chronic) Leg swelling (Chronic) Edema of both legs (Chronic) Lower extremity ulceration (Chronic) Essential (primary) hypertension (Chronic) Angina pectoris (Chronic) NSTEMI (non-ST elevated myocardial infarction) (Chronic 02/03/19) Anemia (Chronic) 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) EVN-DDB-TEF-D1 w/ 2.5 x 16 mm Promus Synergy Stent 02/03/19 OQP-KAP-Gnbl-Mid OM1 w/ 2.25 x 12 mm Promus Premier 12/30/2013 PZY-RKN-BCI-Prox-Mid OM2 w/ 3.0 x 23 mm Promus Stent 03/05/2010 KDA-ULB-GCS-OM2 w/ Taxus Stent 04/2006 CABG x 3 SVG to D1, SVG-OM & SVG-RCA History of coronary artery stent placement (Chronic 02/03/19) LDI-YVA-API-D1 w/ 2.5 x 16 mm Promus Synergy Stent 02/03/19 KXC-FZE-Vdno-Mid OM1 w/ 2.25 x 12 mm Promus Premier 12/30/2013 ZGK-ZOH-QQB-Prox-Mid OM2 w/ 3.0 x 23 mm Promus Stent 03/05/2010 GTE-SYN-DQA-OM2 w/ Taxus Stent 04/2006 H/O coronary artery bypass surgery (Chronic 09/08/92) CABG x 3 SVG to D1, SVG-OM & SVG-RCA SVT (supraventricular tachycardia) (Chronic) HLD (hyperlipidemia) (Chronic) Surgical History: angioplasty, appendectomy, cholecystectomy, coronary bypass surgery, hysterectomy, - - Appendectomy, cholecystectomy, CABG x 3, PCI x 3, hysterectomy. Allergies/Adverse Reactions: Allergies No Known Allergies Allergy (Verified 11/13/18 03:25) Home Medications: Ambulatory Orders Medication Instructions Recorded Nitroglycerin (INPATIENT USE) 0.4 mg SUBLINGUAL Q5M PRN 12/21/13 [Nitrostat] ergocalciferol (vitamin D2) 50,000 50,000 unit PO QMONTH 11/18/17 unit capsule Aspirin [Aspirin, Baby] 81 mg PO DAILY@0800 07/30/18 isosorbide mononitrate ER 30 mg 30 mg PO QAM #90 tab 11/03/18 tablet,extended release 24 hr Furosemide 40 mg PO BID 11/13/18 Hydrocodone/Acetaminophen 0.5 tab PO BID PRN 11/13/18 [Hydrocodone-Acetamin 5-325 mg] metoprolol succinate ER 50 mg 50 mg PO DAILY #90 tab 11/17/18 tablet,extended release 24 hr Glipizide/Metformin HCl 2 tab PO BID 02/01/19 [Glipizide-Metformin 2.5-250 mg] Levothyroxine [Synthroid] 137 mcg PO DAILY 02/01/19 Potassium Chloride [Klor-Con M20] 20 meq PO TID 02/01/19 Atorvastatin Calcium [Lipitor] 40 mg PO QHS #30 tab 02/04/19 Clopidogrel Bisulfate [Plavix] 75 mg PO DAILY #30 tab 02/04/19 Insulin Glargine,Hum.rec.anlog 25 unit SUBCUT DAILY #0 ml 02/04/19 [Toumitzyo Max Solostar] Iron Polysaccharide Complex 150 mg PO DAILYCM #30 cap 02/04/19 [Ferrex 150] - Family History Maternal Family History: Family History (Last Reviewed 12/21/18 @ 10:34 by Ana Dupont) Mother Colon cancer Mother Heart disease Heart Disease Paternal Family History: Family History (Last Reviewed 12/21/18 @ 10:34 by Ana Dupont) Mother Colon cancer Mother Heart disease - - No marked paternal history of HD, CA, DM. The patient's father was killed in World War II. Smoking Status: Former smoker Tobacco Use: Non-smoker Review of Systems Constitutional: Denies: Chills, Fever, Weight Change Eyes: Denies: Pain, Vision Change HEENT: Denies: Difficulty Hearing, Difficulty Swallowing, Sinus Congestion Cardiovascular: Denies: Chest Pain, Palpitations Respiratory: Denies: Cough, Shortness of Breath Gastrointestinal: Denies: Diarrhea, Nausea, Vomiting Genitourinary: Denies: Dysuria, Hematuria Endocrine: Denies: Heat/ Cold Intolerance, Polydipsia, Polyuria Hematologic/ Lymphatic: Denies: Easy Bruising, Easy Bleeding - Physical Exam Vital Signs Temp Pulse Resp BP 96.6 F L 103 H 16 174/98 H 03/09/19 10:24 03/09/19 10:24 03/09/19 10:24 03/09/19 10:24 General: Alert, Oriented x3, Cooperative, No apparent distress, Well developed, Well nourished HEENT: Atraumatic, PERRLA, EOMI, Normocephalic Oral: Moist Mucosa Neck: No JVD Lungs: Normal air movement Abdomen: Non-Distended Extremities: No clubbing, No cyanosis, No Calf Tenderness, - - Mild bilateral lower extremity swelling and edema are noted. The ulceration on the right lateral calf persists. Dimensions are documented elsewhere. There is no sign of infection or cellulitis. There is a mild amount of bioburden. Wound Measurements and Assessment WC - Nurse 1 - General Ulcer Measurement Start: 03/02/19 09:56 Freq: Status: Active Protocol: Activity Type Activity Date Activity User E-Sign Co-Sign Detail Recorded Client Recorded Date Recorded By Document 03/09/19 10:24 [facility] [id number] 03/09/19 10:26 [facility] 03/09/19 10:24 Wound Center Nurse 1 [Ulcer Assessment] 2-right lateral maynard -Combined with other wound No -Current Size (cm) - Length 0.1 -Current Size (cm) - Width 0.1 -Current Size (cm) - Depth 0.1 -Total Square Cm 0.01 -Photo Taken No -Epithelialization Large 67-100% -Tunneling No -Undermining/Tunneling No -Circular Undermining No -Exudate Amt None Present -Wound Margin Distinct, Outline Attached -Texture (Alessia-wound Skin Appearance) Assessed Scarring -Moisture (Alessia-wound Skin Appearance Assessed ) Dry/Scaly -Color (Alessia-wound Skin Appearance) Assessed -Temperature (Alessia-wound Skin No Abnormality Appearance) (Pt Warm) -Tenderness on Palpation (Alessia-wound No Skin Appearance) -Ulcer Cleansing Rinsed/ Irrigated with Saline -Foul Odor after Cleansing No -Anesthetic Used 5% Lidocaine Gel [Edema Assessment] -Lower Limb Edema Present Yes -Right Calf (cm) 38 -Right Ankle (cm) 28.5 -Left Calf (cm) 36 -Left Ankle (cm) 26.1 WC - Nurse 2 - General Ulcer CM Notes Start: 03/02/19 09:56 Freq: Status: Active Protocol: Activity Type Activity Date Activity User E-Sign Co-Sign Detail Recorded Client Recorded Date Recorded By Document 03/09/19 11:22 DV [id number] 03/09/19 11:27 DV 03/09/19 11:22 Wound Center Nurse 2 [Procedure/Treatment] 2-right lateral maynard -Time 11:23 -Correct Patient Yes -Correct Side, Site, Position Yes -Correct Procedure Yes -Procedure Performed Yes -Type of Procedure Debridement -Clinical Debridement Subcutaneous -Post Debridement Size (cm) - Length 0.5 -Post Debridement Size (cm) - Width 0.5 -Post Debridement Size (cm) - Depth 0.2 -Total Square Cm 0.25 -Wound/Ulcer Outcome Not Healed -Ulcer Cleansing Rinsed/ Irrigated with Saline -Foul Odor after Cleansing No -Bioengineered Tissue No -Bleeding Controlled with Pressure -Offloading No -Treatment Response Procedure Tolerated Well [See Physician Procedure note for Specifics] Pain Scale: 0-10 Numeric [Pain] -Is Patient Pain Free? Yes Neurological: Cranial nerves II-XII grossly intact, Neuro grossly intact Psych/Mental Status: Normal Affect, Appropriate, Alert and oriented to time, place, person, mood and affect Debridement Note Post-Debridement Measurements/Treatment WC - Nurse 2 - General Ulcer CM Notes Start: 03/02/19 09:56 Freq: Status: Active Protocol: Activity Type Activity Date Activity User E-Sign Co-Sign Detail Recorded Client Recorded Date Recorded By Document 03/02/19 10:17 DV [id number] 03/02/19 10:23 DV Document 03/09/19 11:22 DV [id number] 03/09/19 11:27 DV 03/02/19 03/09/19 10:17 11:22 Wound Center Nurse 2 2-right lateral maynard -Time 10:18 11:23 -Correct Patient Yes Yes -Correct Side, Site, Position Yes Yes -Correct Procedure Yes Yes -Procedure Performed Yes Yes -Type of Procedure Debridement Debridement -Clinical Debridement Subcutaneous Subcutaneous -Post Debridement Size (cm) - Length 0.5 0.5 -Post Debridement Size (cm) - Width 0.6 0.5 -Post Debridement Size (cm) - Depth 0.1 0.2 -Total Square Cm 0.30 0.25 -Wound/Ulcer Outcome Not Healed Not Healed -Ulcer Cleansing Rinsed/ Rinsed/ Irrigated with Irrigated with Saline Saline -Foul Odor after Cleansing No No -Bioengineered Tissue No No -Bleeding Controlled with Pressure Pressure -Offloading No No -Treatment Response Procedure Procedure Tolerated Well Tolerated Well Pain Scale: 0-10 Numeric Is Patient Pain Free? Yes Yes Laterality: Right - Lateral calf Type of Debridement: Excisional debridement Anesthesia Used: 5% Lidocaine Gel Depth: Down to and including healthy tissue, in the subcutaneous layer Percentage of wound debrided: 100 Instrument Used: 5mm curette Tissue Removed: Bioburden and nonviable tissue Severity: Fat Layer Exposed Amount of bleeding with debridement: Mild Bleeding Controlled with: Compression and gauze Patient tolerated procedure well Assessment/Plan Active Problems (Last Updated 02/03/19 @ 18:53 by Luz Maria Stratton) Debility (Chronic) Diabetes mellitus (Chronic) Leg swelling (Chronic) Edema of both legs (Chronic) Lower extremity ulceration (Chronic) Assessment: This is an 83-year-old female who was in her normal state of health until approximately 10 to 12 months prior to presentation. She contracted legionnaires disease, which has resulted in debility and a decrease in her functional status. As result, she has been much less active than previously. She spends longer periods each day in an idle sitting position. She ambulates much less liberally. She does, however, sleep on a flat mattress at night. As result of her inactivity, and increasing periods of idle sitting, she has noted significant swelling and edema in her lower extremities. She presented with an ulceration on the right lateral calf, suspected to be due to the swelling in her right lower extremity. Recent laboratory studies have been obtained, and results reviewed. Results are as follows: White blood count 12.1, hemoglobin 10.1, hematocrit 32.5, platelets 476,000, sodium 141, potassium 3.6, chloride 105, BUN 30, creatinine 1.53, calcium 9.3, magnesium 1.6, serum iron 24, TIBC 288, bilirubin 0.30, AST 7, ALT 16, alkaline phosphatase 66, total protein 7.0, albumin 3.0. Patient states that her daily blood sugars run between 120 and 150. Venous duplex examination has recently been performed, which revealed no evidence of lower extremity deep vein thrombosis. Valvular function was not completely assessed. 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 Plan: We are to continue a regimen of conservative treatment involving lifestyle changes. The patient has been encouraged to continue sleeping on a flat mattress at night. She has been encouraged to elevate her lower extremities as much as possible during daytime hours as well. Leg elevation is to be at heart level, or higher. She has been discouraged from prolonged, idle sitting. Activity has been encouraged as tolerated. We are to continue mild compression, using the equivalent of a Profore Lite wrap, which will be changed twice weekly. We will remain conservative in the amount of compression implemented, due to the findings on the patient's arterial study, suggesting the presence of moderate arterial occlusive disease. Weight loss has been recommended. The patient has been advised to optimize her glycemic control, and to optimize her nutritional intake as well. Irma is to be continued topically, which will be changed with each change of her compression wrap twice weekly. Patient is to return in 1 week for reassessment. The patient is not a smoker. Influenza v accine was not administered today. Patient weighs 159 pounds. She stands 5 feet 4 inches tall. Her BMI is 27.3, which places her in an overweight category. Weight loss has been recommended.
[2019-03-11 16:07] VITALS: BP 141/73; PULSE 94; RESP 20; TEMP 36.4; BMI 26.7
[2019-03-15 11:18] VITALS: BMI 26.7
== END 2019-03-28 23:59 ==
LOC: WC 16:00
PROVIDERS: Family Provider Family Medicine Geriatric Medicine; PCP Family Medicine Geriatric Medicine; Referring Provider Surgery; Visit Provider Surgery
DX: E11.622 Type 2 diabetes mellitus with other skin ulcer (principal); E03.9 Hypothyroidism, unspecified; M79.89 Other specified soft tissue disorders; R60.0 Localized edema; L97.212 Non-pressure chronic ulcer of right calf with fat layer exposed; I10 Essential (primary) hypertension; I25.2 Old myocardial infarction; I25.10 Atherosclerotic heart disease of native coronary artery without angina pectoris; Z95.1 Presence of aortocoronary bypass graft; E78.5 Hyperlipidemia, unspecified; Z79.899 Other long term (current) drug therapy; Z79.82 Long term (current) use of aspirin; Z79.4 Long term (current) use of insulin; Z87.891 Personal history of nicotine dependence
CPT/HCPCS: 11042; 29581; 93923; 99212; G0463

== ENCOUNTER → 2019-03-15 11:48 | Outpatient (CLI) | payer MEDICARE, SELFPAY ==
[2019-02-03 13:58] VITALS: BMI 27.8
[2019-03-15 11:18] VITALS: BMI 26.7
[2019-03-15 13:17] LABS: Anion Gap 10 (5-15); BUN 16 mg/dL (7-18); BUN/Creat Ratio 18.3 RATIO (10-20); Calcium,Total 9.8 mg/dL (8.5-10.1); Chloride 102 mmol/L (98-107); Creatinine, Serum 0.87 mg/dL (0.55-1.02); EST Glomerular Filtration Rate 66 mL/min (>60); Est Glom Filt Rate - Afr Amer 80 mL/min (>60); Glucose 189 mg/dL (74-106); Potassium 3.3 mmol/L (3.5-5.1); Sodium Level 140 mmol/L (136-145)
== END ==
PROVIDERS: Family Provider Family Medicine Geriatric Medicine; PCP Family Medicine Geriatric Medicine; Referring Provider Internal Medicine Cardiovascular Disease; Visit Provider Internal Medicine Cardiovascular Disease
DX: I50.30 Unspecified diastolic (congestive) heart failure (principal)
CPT/HCPCS: 36415; 80048

== ENCOUNTER → 2019-04-07 10:23 | Outpatient (CLI) | payer MEDICARE, SELFPAY ==
[2019-02-03 13:58] VITALS: BMI 27.8
[2019-03-15 11:18] VITALS: BMI 26.7
--- NOTE | 2019-04-07 10:52 | RAD_ITS ---
STUDY: X-RAY - RIGHT ELBOW REASON FOR EXAM: Female, 83 years old. Pain and swelling TECHNIQUE: 3 view(s) of the elbow. COMPARISON: None. FINDINGS: There is demineralization of the visualized humerus, radius and ulna. There is degenerative arthrosis of the radiocapitellar and ulnotrochlear articulations. Nonspecific soft tissue swelling. RAD/Elbow min 3 Views IMPRESSION: Degenerative arthrosis with soft tissue swelling. Electronically Signed: Walker Carrillo MD at 11:28 EDT , Service support ,
--- NOTE | 2019-04-07 10:52 | RAD_ITS ---
STUDY: X-RAY - RIGHT HAND REASON FOR EXAM: Female, 83 years old. Pain, decreased range of motion TECHNIQUE: 3 view(s) of the hand. COMPARISON: None. FINDINGS: There is joint space narrowing of the radiocarpal articulation consistent with degenerative arthrosis. Normal distal radioulnar joint. There is diffuse demineralization of the carpal bones. There is degenerative joint disease of the scaphotrapezium / trapezoid articulation. The remainder of the carpal articulations are normal. There is degenerative arthrosis of the carpometacarpal (CMC) articulation of the thumb. Normal second through fifth carpometacarpal joints. Normal metacarpi. There is degenerative arthrosis of the metacarpophalangeal (MCP) joints. There is degenerative arthrosis of the interphalangeal joint of the thumb with articular joint space narrowing. Normal proximal and distal phalanges of the thumb. There is degenerative arthrosis of the metacarpophalangeal (MCP) joints. There is diffuse articular joint space narrowing of the proximal and distal interphalangeal joints of the second through fifth fingers, but without erosive changes or periarticular soft tissue swelling. Normal phalanges of the second through fifth fingers. The soft tissue structures are unremarkable. RAD/Hand Min 3 Views IMPRESSION: Degenerative joint disease of the hand and wrist, as described above. Electronically Signed: Walker Carrillo MD at 11:40 EDT , Service support ,
--- NOTE | 2019-04-07 10:52 | RAD_ITS ---
STUDY: X-RAY - RIGHT WRIST REASON FOR EXAM: Female, 83 years old. Pain, decreased range of motion TECHNIQUE: 3 view(s) of the wrist were obtained. COMPARISON: None. FINDINGS: There is demineralization of the radius and ulna. There is degenerative arthrosis of the radiocarpal articulation. Normal distal radioulnar articulation. Normal carpal bones. 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 There is degenerative arthrosis of the carpometacarpal articulation of the thumb. There is degenerative arthrosis with of the second through fifth carpometacarpal. There is demineralization of the metacarpal bones. The soft tissue structures are unremarkable. RAD/Wrist min 3 Views IMPRESSION: Degenerative arthrosis, no demonstrated fracture. However, wrist fractures in patients of this age can be subtle, if there is strong clinical suspicion of a fracture, recommend further evaluation with CT Electronically Signed: Walker Carrillo MD at 11:40 EDT , Service support ,
[2019-04-07 12:56] LABS: Anion Gap 10 (5-15); BUN 16 mg/dL (7-18); BUN/Creat Ratio 20.8 RATIO (10-20); Calcium,Total 9.3 mg/dL (8.5-10.1); Chloride 106 mmol/L (98-107); Creatinine, Serum 0.77 mg/dL (0.55-1.02); EST Glomerular Filtration Rate 76 mL/min (>60); Est Glom Filt Rate - Afr Amer 92 mL/min (>60); Glucose 162 mg/dL (74-106); Potassium 3.6 mmol/L (3.5-5.1); Sodium Level 141 mmol/L (136-145)
[2019-04-07 13:15] LABS: Erythrocyte Sedimentation Rate 68 mm/hr (0-30)
[2019-04-07 13:19] LABS: Absolute Lymphocyte Count 2.62 X10^3/ul (0.83-4.51); Absolute Neutrophil Count 6.5 X10^3/uL (2.0-7.7); Basophil# 0.05 X10^3/uL; Basophil% 0.5 % (0-1); Eosinophil# 0.13 X10^3/uL; Eosinophils% 1.3 % (0-5); Hematocrit 33.5 % (37-47); Hemoglobin 10.5 g/dl (12.0-15.0); Lymphocyte # 2.62 X10^3/ul (4.0); Mean Corp Hgb Conc 31.3 g/gl (32-36); Mean Corpuscular Hgb 24.7 pg (27.0-32.0); Mean Corpuscular Volume 78.8 fL (81-99); Mean Platelet Vol. 10.5 fl (6.2-12.0); Monocyte# 0.78 X10^3/uL; Monocyte% 7.8 % (0-10); Neutrophil # 6.45 X10^3/uL (2.7-7.7); Neutrophil % 64.1 % (47-70); Platelet Count 435 K/mm3 (150-450); RBC Distribution Width CV 15.7 % (11.6-14.6); Red Blood Count 4.25 M/mm3 (4.2-5.4); White Blood Count 10.1 K/mm3 (4.4-11.0)
[2019-04-07 13:20] LABS: POSITIVE COUNT NO; POSITIVE DIFFERENTIAL NO; POSITIVE MORPHOLOGY NO
[2019-04-12 12:51] LABS: Legionella Pneumoph.Abs < 0.91 OD ratio (0.00-0.90)
== END ==
PROVIDERS: Family Provider Family Medicine Geriatric Medicine; PCP Family Medicine Geriatric Medicine; Referring Provider Family Medicine Geriatric Medicine; Visit Provider Family Medicine Geriatric Medicine
DX: A48.1 Legionnaires' disease (principal); M10.9 Gout, unspecified; M25.529 Pain in unspecified elbow; M79.609 Pain in unspecified limb; M25.539 Pain in unspecified wrist
CPT/HCPCS: 36415; 73080; 73110; 73130; 80048; 84550; 85025; 85652; 86140; 86713; 87449

== ENCOUNTER → 2019-05-17 10:37 | Outpatient (CLI) | payer MEDICARE, SELFPAY ==
[2019-02-03 13:58] VITALS: BMI 27.8
[2019-05-17 12:38] LABS: Absolute Lymphocyte Count 2.85 X10^3/uL (0.83-4.51); Basophil# 0.08 X10^3/uL; Basophil% 0.7 % (0-1); Eosinophils% 1.8 % (0-5); Hematocrit 34.7 % (37-47); Hemoglobin 10.8 g/dL (12.0-15.0); Lymphocyte # 2.85 X10^3/ul (4.0); Lymphocyte % 25.7 % (19-41); Mean Corp Hgb Conc 31.1 g/dL (32-36); Mean Corpuscular Hgb 25.5 pg (27.0-32.0); Mean Corpuscular Volume 81.8 fL (81-99); Mean Platelet Vol. 11.3 fl (6.2-12.0); Monocyte# 0.86 X10^3/uL; Monocyte% 7.8 % (0-10); NRBC Flagged by Analyzer 0 % (0-5); Neutrophil # 7.02 X10^3/uL (2.7-7.7); Neutrophil % 63.4 % (47-70); Platelet Count 401 K/mm3 (150-450); RBC Distribution Width CV 17.1 % (11.6-14.6); RBC Distribution Width SD 50.2 fl (35.1-43.9); Red Blood Count 4.24 M/mm3 (4.2-5.4); White Blood Count 11.1 K/mm3 (4.4-11.0)
[2019-05-17 12:54] LABS: Vitamin D,25 Hydroxy 35.9 ng/mL (29.95-100.01)
[2019-05-17 13:00] LABS: ALB/GLOB Ratio 0.7 RATIO (0.9-2.4); AST(SGOT) 10 U/L (15-37); Alanine Aminotransfer ALT/SGPT 24 U/L (13-56); Alkaline Phosphatase 71 U/L (45-117); Anion Gap 9 (5-15); BUN 24 mg/dL (7-18); Calcium,Total 8.9 mg/dL (8.5-10.1); Chloride 103 mmol/L (98-107); EST Glomerular Filtration Rate 57 mL/min (>60); Est Glom Filt Rate - Afr Amer 68 mL/min (>60); Globulin 4.1 g/dL (2.2-4.2); Glucose 325 mg/dL (74-106); Potassium 3.4 mmol/L (3.5-5.1); Protein, Total 7.1 g/dL (6.4-8.2); Sodium Level 138 mmol/L (136-145); Thyroid Stim Hormone (TSH) 1.34 uIU/mL (0.358-3.74); Uric Acid 5.6 mg/dL (2.6-6.0)
== END ==
PROVIDERS: Family Provider Family Medicine Geriatric Medicine; PCP Family Medicine Geriatric Medicine; Visit Provider Family Medicine Geriatric Medicine
DX: E11.9 Type 2 diabetes mellitus without complications (principal); E55.9 Vitamin D deficiency, unspecified; I10 Essential (primary) hypertension; M10.9 Gout, unspecified
CPT/HCPCS: 36415; 80053; 82306; 84443; 84550; 85025

== ENCOUNTER 2019-07-27 09:47 | Outpatient (RCR) | payer MEDICARE, SELFPAY ==
[2019-02-03 13:58] VITALS: BMI 27.8
[2019-07-20 10:34] VITALS: BMI 26.4
[2019-07-27 09:59] VITALS: BP 165/83; PULSE 83; RESP 18; TEMP 37.1; BMI 27.1
--- NOTE | 2019-07-27 12:31 | HP.PCM_ITS ---
(1) Diabetes mellitus Status: Chronic Current Visit: Yes Qualifiers: Diabetes mellitus type: type 2 Code(s): E11.9 - Type 2 diabetes mellitus without complications (2) Hypothyroidism Status: Chronic Current Visit: No Code(s): E03.9 - Hypothyroidism, unspecified (3) Overweight (BMI 25.0-29.9) Status: Chronic Current Visit: No Code(s): E66.3 - Overweight (4) Leg swelling Status: Chronic Current Visit: Yes Code(s): M79.89 - Other specified soft tissue disorders (5) Leg edema Status: Chronic Current Visit: Yes Code(s): R60.0 - Localized edema (6) CAD (coronary artery disease) Status: Chronic Current Visit: No Qualifiers: Coronary Disease-Associated Artery/Lesion type: torres martinez artery Code(s): I25.10 - Atherosclerotic heart disease of torres martinez coronary artery without angina pectoris (7) Wound of right leg Status: Chronic Current Visit: Yes Qualifiers: Encounter type: initial encounter Qualified Code(s): S81.801A - Unspecified open wound, right lower leg, initial encounter Code(s): S81.801A - Unspecified open wound, right lower leg, initial encounter (8) History of non-ST elevation myocardial infarction (NSTEMI) Status: Chronic Current Visit: No Code(s): I25.2 - Old myocardial infarction (9) (HFpEF) heart failure with preserved ejection fraction Status: Chronic Current Visit: No Code(s): I50.30 - Unspecified diastolic (congestive) heart failure (10) Bilateral lower extremity edema Status: Chronic Current Visit: Yes Code(s): R60.0 - Localized edema (11) Essential (primary) hypertension Status: Chronic Current Visit: No Code(s): I10 - Essential (primary) hypertension (12) 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 myocardial infarction Status: Chronic Current Visit: No Code(s): I25.2 - Old myocardial infarction (13) Atherosclerosis of coronary 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 Status: Chronic Current Visit: No Code(s): I25.810 - Atherosclerosis of coronary artery bypass graft(s) without angina pectoris Comment: PQV-WVK-KQH-D1 w/ 2.5 x 16 mm Promus Synergy Stent 02/03/19 KUD-VZE-Uyyb-Mid OM1 w/ 2.25 x 12 mm Promus Premier 12/30/2013 ZJC-VZX-LKL-Prox-Mid OM2 w/ 3.0 x 23 mm Promus Stent 03/05/2010 SER-TOI-EVA-OM2 w/ Taxus Stent 04/2006 CABG x 3 SVG to D1, SVG-OM & SVG-RCA (14) History of coronary artery stent placement Status: Chronic Current Visit: No Code(s): Z95.5 - Presence of coronary angioplasty implant and graft Comment: KPB-COA-LRT-D1 w/ 2.5 x 16 mm Promus Synergy Stent 02/03/19 YZO-PVZ-Vybz-Mid OM1 w/ 2.25 x 12 mm Promus Premier 12/30/2013 BYT-UKU-ABP-Prox-Mid OM2 w/ 3.0 x 23 mm Promus Stent 03/05/2010 CKA-WLL-MPD-OM2 w/ Taxus Stent 04/2006 (15) H/O coronary artery bypass surgery Status: Chronic Current Visit: No Code(s): Z95.1 - Presence of aortocoronary bypass graft Comment: CABG x 3 SVG to D1, SVG-OM & SVG-RCA (16) HLD (hyperlipidemia) Status: Chronic Current Visit: No Qualifiers: Code(s): E78.5 - Hyperlipidemia, unspecified History of Present Illness Date of Service: 07/27/19 Chief Complaint: Traumatic wound of the right lateral calf History of Wound: This is an 83-year-old female who presented atraumatic wound on the right lateral calf. This occurred several weeks ago, and has failed to heal appropriately. Patient has been using topical antibiotic ointment without improvement. She has a history of swelling and edema in her lower extremities, for which she has been advised to wear graduated compression stockings on a daily basis. However, she has been relatively noncompliant with these recommendations. She also has been advised to elevate her lower extremities as much as possible during daytime hours. She has been relatively noncompliant. She sleeps on a flat mattress at night. She is generally inactive, spending long periods of time each day in an idle sitting position. She denies a history of thrombophlebitis. Past Medical History Past Medical History: Chronic Problems (Last Reviewed 07/20/19 @ 11:03 by VICKY Salas) Diabetes mellitus (Chronic) Hypothyroidism (Chronic) Overweight (BMI 25.0-29.9) (Chronic) Leg swelling (Chronic) Leg edema (Chronic) CAD (coronary artery disease) (Chronic) Wound of right leg (Chronic) History of non-ST elevation myocardial infarction (NSTEMI) (Chronic 02/02/19) (HFpEF) heart failure with preserved ejection fraction (Chronic) Bilateral lower extremity edema (Chronic) Lower extremity ulceration (Chronic) Essential (primary) hypertension (Chronic) NSTEMI (non-ST elevated myocardial infarction) (Chronic 02/03/19) 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) YUN-XMP-TZS-D1 w/ 2.5 x 16 mm Promus Synergy Stent 02/03/19 BZN-EZR-Hllt-Mid OM1 w/ 2.25 x 12 mm Promus Premier 12/30/2013 WQO-IYL-PQA-Prox-Mid OM2 w/ 3.0 x 23 mm Promus Stent 03/05/2010 OCF-RNX-KRK-OM2 w/ Taxus Stent 04/2006 CABG x 3 SVG to D1, SVG-OM & SVG-RCA History of coronary artery stent placement (Chronic 02/03/19) DBX-ZNZ-TPY-D1 w/ 2.5 x 16 mm Promus Synergy Stent 02/03/19 MZH-OIH-Moir-Mid OM1 w/ 2.25 x 12 mm Promus Premier 12/30/2013 HRN-PUW-WSQ-Prox-Mid OM2 w/ 3.0 x 23 mm Promus Stent 03/05/2010 BNX-VVV-NKS-OM2 w/ Taxus Stent 04/2006 H/O coronary artery bypass surgery (Chronic 09/08/92) CABG x 3 SVG to D1, SVG-OM & SVG-RCA SVT (supraventricular tachycardia) (Chronic) HLD (hyperlipidemia) (Chronic) Surgical History: angioplasty, appendectomy, cholecystectomy, coronary bypass surgery, hysterectomy, - - Appendectomy, cholecystectomy, CABG x 3, PCI x 3, coronary artery stenting, hysterectomy. Allergies/Adverse Reactions: Allergies No Known Allergies Allergy (Verified 07/20/19 10:34) Home Medications: Ambulatory Orders Medication Instructions Recorded Nitroglycerin (INPATIENT USE) 0.4 mg SUBLINGUAL Q5M PRN 12/21/13 [Nitrostat] ergocalciferol (vitamin D2) 50,000 50,000 unit PO QMONTH 11/18/17 unit capsule Aspirin [Aspirin, Baby] 81 mg PO DAILY@0800 07/30/18 isosorbide mononitrate ER 30 mg 30 mg PO QAM #90 tab 11/03/18 tablet,extended release 24 hr metoprolol succinate ER 50 mg 50 mg PO DAILY #90 tab 11/17/18 tablet,extended release 24 hr Glipizide/Metformin HCl 2 tab PO BID 02/01/19 [Glipizide-Metformin 2.5-250 mg] Levothyroxine [Synthroid] 137 mcg PO DAILY 02/01/19 Insulin Glargine,Hum.rec.anlog 25 unit SUBCUT DAILY #0 ml 02/04/19 [Toujeo Max Solostar] Iron Polysaccharide Complex 150 mg PO DAILYCM #30 cap 02/04/19 [Ferrex 150] atorvastatin 40 mg tablet 40 mg PO QHS 30 Days #30 tab 03/12/19 furosemide 40 mg tablet 40 mg PO DAILY #90 tab 03/12/19 losartan 100 mg tablet 100 mg PO DAILY 30 Days #60 tab 03/12/19 clopidogrel 75 mg tablet 75 mg PO DAILY #90 tab 03/15/19 potassium chloride ER 20 mEq 20 meq PO DAILY #90 tab 03/15/19 tablet,extended release(part/cryst) hydrocodone 5 mg-acetaminophen 325 2 tab PO Q6H 07/20/19 mg tablet - Family History Maternal Family History: Family History (Last Reviewed 07/20/19 @ 11:03 by VICKY Salas) Mother Colon cancer Mother Heart disease Heart Disease Paternal Family History: Family History (Last Reviewed 07/20/19 @ 11:03 by VICKY Salas) Mother Colon cancer Mother Heart disease - - No marked paternal history of HD, CA, DM. The patient's father was killed in World War II. Smoking Status: Former smoker Alcohol: None Drugs: None Review of Systems Constitutional: Denies: Chills, Fever, Weight Change Eyes: Denies: Pain, Vision Change HEENT: Denies: Difficulty Hearing, Difficulty Swallowing, Sinus Congestion Cardiovascular: Denies: Chest Pain, Palpitations Respiratory: Denies: Cough, Shortness of Breath Gastrointestinal: Denies: Diarrhea, Nausea, Vomiting Genitourinary: Denies: Dysuria, Hematuria Endocrine: Denies: Heat/ Cold Intolerance, Polydipsia, Polyuria Hematologic/ Lymphatic: Denies: Easy Bruising, Easy Bleeding - Physical Exam Vital Signs Temp Pulse Resp BP 98.8 F 83 18 165/83 H 07/27/19 09:59 10 09:59 07/27/19 09:59 07/27/19 09:59 General: Alert, Oriented x3, Cooperative, No apparent distress, Well developed, Well nourished HEENT: Atraumatic, PERRLA, EOMI, Normocephalic Oral: Moist Mucosa Neck: Supple, No JVD, Negative Carotid Bruits, Negative Hepatojugular Reflux, No Nodes, No Nuchal Rigidity, Trachea Midline Lungs: Clear to auscultation, Normal air movement, No rhonchi, No wheeze, No rales, Diminished Cardiovascular: Regular rate, Regular Rhythm, Normal S1, Normal S2, No murmurs Abdomen: Soft, Non Tender, Non-Distended Extremities: No clubbing, No cyanosis, No Calf Tenderness, - - Swelling and edema are noted in the lower extremities bilaterally. Very small traumatic ulceration is noted on the right lateral calf, with a moderate amount of bioburden and nonviable tissue. Dimensions are documented elsewhere. There is no obvious sign of infection or cellulitis. Wound Measurements and Assessment WC - Nurse 1 - General Ulcer Measurement Start: 07/27/19 09:56 Freq: Status: Active Protocol: Activity Type Activity Date Activity User E-Sign Co-Sign Detail Recorded Client Recorded Date Recorded By Document 07/27/19 09:59 UT [id number] 07/27/19 10:12 UT 07/27/19 09:59 Wound Center Nurse 1 [Ulcer Assessment] #3 Right Lateral Lower Ext -Current Size (cm) - Length 0.4 -Current Size (cm) - Width 0.1 -Current Size (cm) - Depth 0.1 -Total Square Cm 0.04 -Exudate Amt None Present -Granulation Amt Large (67-100%) -Granulation Quality Pale,[place] -Slough/Fibrin No -Necrosis Amt None Present (0 %) -Texture (Alessia-wound Skin Appearance) Assessed, Localized Edema -Moisture (Alessia-wound Skin Appearance Assessed ) -Color (Alessia-wound Skin Appearance) Assessed -Temperature (Alessia-wound Skin No Abnormality Appearance) (Pt Warm) -Tenderness on Palpation (Alessia-wound No Skin Appearance) -Ulcer Cleansing Rinsed/ Irrigated with Saline -Foul Odor after Cleansing No -Anesthetic Used 5% Lidocaine Gel [Edema Assessment] -Right Calf (cm) 36.7 -Right Ankle (cm) 26.7 -Left Calf (cm) 35.7 -Left Ankle (cm) 25 - Nurse 2 - General Ulcer CM Notes Start: 07/27/19 09:56 Freq: Status: Active Protocol: Activity Type Activity Date Activity User E-Sign Co-Sign Detail Recorded Client Recorded Date Recorded By Document 07/27/19 10:51 [id number] 07/27/19 10:54 07/27/19 10:51 Wound Center Nurse 2 [Procedure/Treatment] #3 Right Lateral Lower Ext -Time 10:51 -Correct Patient Yes -Correct Side, Site, Position Yes -Correct Procedure Yes -Procedure Performed Yes -Type of Procedure Debridement -Clinical Debridement Subcutaneous -Post Debridement Size (cm) - Length 0.4 -Post Debridement Size (cm) - Width 0.1 -Post Debridement Size (cm) - Depth 0.1 -Total Square Cm 0.04 -Wound/Ulcer Outcome Not Healed -Ulcer Cleansing Not Cleansed -Foul Odor after Cleansing No -Bleeding Controlled with NA -Offloading No -Treatment Response Procedure Tolerated Well [See Physician Procedure note for Specifics] Pain Scale: 0-10 Numeric [Pain] -Is Patient Pain Free? Yes Neurological: Cranial nerves II-XII grossly intact, Neuro grossly intact Psych/Mental Status: Normal Affect, Appropriate, Alert and oriented to time, place, person, mood and affect Debridement Note Post-Debridement Measurements/Treatment WC - Nurse 2 - General Ulcer CM Notes Start: 07/27/19 09:56 Freq: Status: Active Protocol: Activity Type Activity Date Activity User E-Sign Co-Sign Detail Recorded Client Recorded Date Recorded By Document 07/27/19 10:51 [id number] 07/27/19 10:54 07/27/19 10:51 Wound Center Nurse 2 #3 Right Lateral Lower Ext -Time 10:51 -Correct Patient Yes -Correct Side, Site, Position Yes -Correct Procedure Yes -Procedure Performed Yes -Type of Procedure Debridement -Clinical Debridement Subcutaneous -Post Debridement Size (cm) - Length 0.4 -Post Debridement Size (cm) - Width 0.1 -Post Debridement Size (cm) - Depth 0.1 -Total Square Cm 0.04 -Wound/Ulcer Outcome Not Healed -Ulcer Cleansing Not Cleansed -Foul Odor after Cleansing No -Bleeding Controlled with NA -Offloading No -Treatment Response Procedure Tolerated Well Pain Scale: 0-10 Numeric Is Patient Pain Free? Yes Laterality: Right - Lateral calf Type of Debridement: Excisional debridement Anesthesia Used: 5% Lidocaine Gel Depth: Down to and including healthy tissue, in the subcutaneous layer Percentage of wound debrided: 100 Instrument Used: 3mm curette Tissue Removed: Bioburden and nonviable tissue Severity: Fat Layer Exposed Amount of bleeding with debridement: Mild Bleeding Controlled with: Compression and gauze Patient tolerated procedure well Assessment/Plan Active Problems (Last Reviewed 07/20/19 @ 11:03 by VICKY Salas) Diabetes mellitus (Chronic) Leg swelling (Chronic) Leg edema (Chronic) Wound of right leg (Chronic) Bilateral lower extremity edema (Chronic) Assessment: This is an 83-year-old female who presented with a traumatic wound on the right lateral calf. She is also noted to have swelling and edema in her lower extremities bilaterally, which is chronic in nature. Patient is relatively inactive. She does sleep on a flat mattress at night. As result of her inactivity, and increasing periods of idle sitting, she has noted significant swelling and edema in her lower extremities. Recent laboratory studies have been obtained, and results reviewed. Results are as follows: 1, hemoglobin 10.8, hematocrit 34.7, platelets 401,000, sodium 138, potassium 3.4, chloride 103, BUN 24, creatinine 1.00, glucose 325, calcium 8.9, total protein 7.1, albumin 3.0. 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 Plan: We are to implement conservative treatment measures relative to the swelling and edema in the patient's lower extremities. These are measures which have been previously implemented. Patient has been reminded to elevate her lower extremities as much as possible. Her extremities are to be elevated to heart level, or higher. This is to be accomplished during daytime hours, as well as at night while sleeping. She is to refrain from prolonged idle sitting. He has been encouraged. Weight loss has been recommended. She has been advised to continue wearing her graduated compression stockings on a daily basis. We are to implement the use of [place] topically to the traumatic wound on the right lateral calf. Patient will return in 1 week for reassessment. The patient is not a smoker. Influenza vaccine was not administered today. Patient stands 5 feet 4 inches tall. She weighs 158 pounds. Her BMI is 27.1, which places the patient in the overweight category. Medically supervised weight loss has been recommended.
== END 2019-07-29 23:59 ==
LOC: WC 09:47
PROVIDERS: Family Provider Family Medicine Geriatric Medicine; PCP Family Medicine Geriatric Medicine; Visit Provider Surgery
DX: S81.831A Puncture wound without foreign body, right lower leg, initial encounter (principal); X58.XXXA Exposure to other specified factors, initial encounter; E78.5 Hyperlipidemia, unspecified; Z95.1 Presence of aortocoronary bypass graft; I25.10 Atherosclerotic heart disease of native coronary artery without angina pectoris; I25.2 Old myocardial infarction; E03.9 Hypothyroidism, unspecified; E11.9 Type 2 diabetes mellitus without complications; R60.0 Localized edema; M79.89 Other specified soft tissue disorders; I50.32 Chronic diastolic (congestive) heart failure; I11.0 Hypertensive heart disease with heart failure; Z79.899 Other long term (current) drug therapy; Z79.82 Long term (current) use of aspirin; Z79.4 Long term (current) use of insulin; Z79.02 Long term (current) use of antithrombotics/antiplatelets; Z87.891 Personal history of nicotine dependence
CPT/HCPCS: 11042; 99214; G0463

== ENCOUNTER 2019-08-03 08:24 | Outpatient (RCR) | payer MEDICARE, SELFPAY ==
[2019-02-03 13:58] VITALS: BMI 27.8
[2019-07-30 01:34] VITALS: BP 165/83; PULSE 83; RESP 18; TEMP 37.1
[2019-08-03 11:16] VITALS: BP 162/101; PULSE 109; RESP 18; TEMP 36.4; BMI 27.1
== END 2019-08-28 23:59 ==
LOC: WC 08:24
PROVIDERS: Family Provider Family Medicine Geriatric Medicine; PCP Family Medicine Geriatric Medicine; Visit Provider Surgery
DX: Z09 Encounter for follow-up examination after completed treatment for conditions other than malignant neoplasm (principal)
CPT/HCPCS: 99212; G0463

== ENCOUNTER → 2019-08-16 15:28 | Outpatient (CLI) | payer MEDICARE, SELFPAY ==
[2018-11-13 12:09] VITALS: BMI 27.6
[2018-12-08 11:32] VITALS: BMI 27.4
[2019-02-03 13:58] VITALS: BMI 27.8
[2019-08-03 11:16] VITALS: BMI 27.1
[2019-08-16 17:39] LABS: Anion Gap 10 (5-15); BUN 23 mg/dL (7-18); BUN/Creat Ratio 17.4 RATIO (10-20); CRP 5.59 mg/L (0.0-3.0); Calcium,Total 9.2 mg/dL (8.5-10.1); Chloride 105 mmol/L (98-107); Creatinine, Serum 1.32 mg/dL (0.55-1.02); EST Glomerular Filtration Rate 41 mL/min (>60); Est Glom Filt Rate - Afr Amer 50 mL/min (>60); Glucose 250 mg/dL (74-106); Potassium 3.6 mmol/L (3.5-5.1); Sodium Level 141 mmol/L (136-145)
[2019-08-16 17:41] LABS: Absolute Lymphocyte Count 3.07 X10^3/uL (0.83-4.51); Absolute Neutrophil Count 7.1 X10^3/uL (2.0-7.7); Basophil# 0.09 X10^3/uL; Basophil% 0.8 % (0-1); Eosinophil# 0.18 X10^3/uL; Eosinophils% 1.6 % (0-5); Hematocrit 33.8 % (37-47); Hemoglobin 10.6 g/dL (12.0-15.0); Lymphocyte # 3.07 X10^3/ul (4.0); Mean Corp Hgb Conc 31.4 g/dL (32-36); Mean Corpuscular Hgb 26.1 pg (27.0-32.0); Mean Corpuscular Volume 83.3 fL (81-99); Mean Platelet Vol. 11.4 fl (6.2-12.0); Monocyte# 0.88 X10^3/uL; Monocyte% 7.7 % (0-10); NRBC Flagged by Analyzer 0 % (0-5); Neutrophil # 7.13 X10^3/uL (2.7-7.7); Neutrophil % 62.5 % (47-70); Platelet Count 383 K/mm3 (150-450); RBC Distribution Width CV 14.6 % (11.6-14.6); RBC Distribution Width SD 44.4 fl (35.1-43.9); Red Blood Count 4.06 M/mm3 (4.2-5.4); White Blood Count 11.4 K/mm3 (4.4-11.0)
[2019-08-16 18:19] LABS: Erythrocyte Sedimentation Rate 44 mm/hr (0-30)
== END ==
PROVIDERS: Family Provider Family Medicine Geriatric Medicine; PCP Family Medicine Geriatric Medicine; Visit Provider Family Medicine Geriatric Medicine
DX: M35.3 Polymyalgia rheumatica (principal); N18.3 Chronic kidney disease, stage 3 (moderate); E11.22 Type 2 diabetes mellitus with diabetic chronic kidney disease; E55.9 Vitamin D deficiency, unspecified; E87.6 Hypokalemia; R60.9 Edema, unspecified
CPT/HCPCS: 36415; 80048; 85025; 85652; 86140

== ENCOUNTER → 2019-08-19 14:06 | Outpatient (CLI) | payer MEDICARE, SELFPAY ==
[2019-02-03 13:58] VITALS: BMI 27.8
[2019-08-03 11:16] VITALS: BMI 27.1
[2019-08-19 17:30] LABS: Absolute Lymphocyte Count 2.87 X10^3/uL (0.83-4.51); Absolute Neutrophil Count 7.6 X10^3/uL (2.0-7.7); Basophil# 0.09 X10^3/uL; Basophil% 0.8 % (0-1); Eosinophil# 0.22 X10^3/uL; Eosinophils% 1.9 % (0-5); Hematocrit 36.1 % (37-47); Hemoglobin 11.2 g/dL (12.0-15.0); Lymphocyte # 2.87 X10^3/ul (4.0); Lymphocyte % 24.9 % (19-41); Mean Corpuscular Hgb 25.8 pg (27.0-32.0); Mean Corpuscular Volume 83.2 fL (81-99); Mean Platelet Vol. 11.1 fl (6.2-12.0); Monocyte# 0.73 X10^3/uL; Monocyte% 6.3 % (0-10); NRBC Flagged by Analyzer 0 % (0-5); Neutrophil # 7.56 X10^3/uL (2.7-7.7); Neutrophil % 65.7 % (47-70); Platelet Count 395 K/mm3 (150-450); RBC Distribution Width CV 14.6 % (11.6-14.6); RBC Distribution Width SD 44.5 fl (35.1-43.9); Red Blood Count 4.34 M/mm3 (4.2-5.4); White Blood Count 11.5 K/mm3 (4.4-11.0)
[2019-08-19 17:42] LABS: ALB/GLOB Ratio 0.8 RATIO (0.9-2.4); AST(SGOT) 13 U/L (15-37); Alanine Aminotransfer ALT/SGPT 24 U/L (13-56); Albumin, Serum 3.4 g/dL (3.2-5.0); Alkaline Phosphatase 78 U/L (45-117); Anion Gap 11 (5-15); BUN 24 mg/dL (7-18); BUN/Creat Ratio 23.1 RATIO (10-20); Calcium,Total 9.5 mg/dL (8.5-10.1); Chloride 102 mmol/L (98-107); Creatinine, Serum 1.04 mg/dL (0.55-1.02); EST Glomerular Filtration Rate 54 mL/min (>60); Est Glom Filt Rate - Afr Amer 65 mL/min (>60); Globulin 4.1 g/dL (2.2-4.2); Glucose 217 mg/dL (74-106); Potassium 3.7 mmol/L (3.5-5.1); Protein, Total 7.5 g/dL (6.4-8.2); Sodium Level 139 mmol/L (136-145); Thyroid Stim Hormone (TSH) 2.47 uIU/mL (0.358-3.74)
[2019-08-19 17:43] LABS: Vitamin D,25 Hydroxy 39.8 ng/mL (29.95-100.01)
== END ==
PROVIDERS: Family Provider Family Medicine Geriatric Medicine; PCP Family Medicine Geriatric Medicine; Visit Provider Family Medicine Geriatric Medicine
DX: E11.9 Type 2 diabetes mellitus without complications (principal); E55.9 Vitamin D deficiency, unspecified; I10 Essential (primary) hypertension
CPT/HCPCS: 36415; 80053; 82306; 84443; 85025

== ENCOUNTER → 2019-09-02 13:54 | Outpatient (CLI) | payer MEDICARE, SELFPAY ==
[2019-02-03 13:58] VITALS: BMI 27.8
[2019-08-03 11:16] VITALS: BMI 27.1
== END ==
PROVIDERS: Family Provider Family Medicine Geriatric Medicine; PCP Family Medicine Geriatric Medicine; Visit Provider Family Medicine Geriatric Medicine
DX: R30.0 Dysuria (principal)
CPT/HCPCS: 87086; 87088

== ENCOUNTER → 2019-09-17 11:20 | Outpatient (CLI) | payer MEDICARE, SELFPAY ==
[2019-02-03 13:58] VITALS: BMI 27.8
--- NOTE | 2019-09-17 11:28 | RAD_ITS ---
STUDY: X-RAY - UNILATERAL RIBS ( LEFT ) WITH CHEST REASON FOR EXAM: Female, 83 years old. injury, pt. is having pain left mid lateral ribs TECHNIQUE - RIBS: 2 view(s) of the ribs. TECHNIQUE - CHEST: PA COMPARISON: 02/01/2019 FINDINGS - RIBS: Osteopenia limits evaluation for nondisplaced fracture. No displaced rib fractures seen. FINDINGS - CHEST: Linear density in the left lung base likely represents localized atelectasis or fibrotic band. No airspace consolidation. There is no demonstrated pleural abnormality. Normal size heart. Sternal wires and mediastinal surgical clips compatible with prior CABG. Normal visualized pulmonary arteries. Normal visualized aortic arch and descending thoracic aorta. There is demineralization of the osseous structures. There are old right rib fractures. There is no demonstrated abnormality of the visualized soft tissue structures of the upper abdomen. RAD/Ribs Uni Min 3V w/PA Chest IMPRESSION: RIBS: No demonstrated acute fracture. CHEST: Nonacute x-ray examination of the chest. Electronically Signed: Jesse Khan MD ([place]) at 12:07 EST , Service support ,
== END ==
PROVIDERS: Family Provider Family Medicine Geriatric Medicine; PCP Family Medicine Geriatric Medicine; Referring Provider Family Medicine Geriatric Medicine; Visit Provider Family Medicine Geriatric Medicine
DX: R07.89 Other chest pain (principal)
CPT/HCPCS: 71101

== ENCOUNTER → 2019-10-18 16:03 | Outpatient (CLI) | payer MEDICARE, SELFPAY ==
[2019-02-03 13:58] VITALS: BMI 27.8
--- NOTE | 2019-10-18 16:20 | RAD_ITS ---
STUDY: X-RAY - LEFT SHOULDER REASON FOR EXAM: Female, 84 years old. PAIN, NKI -- HX OF LEGIONNAIRE''S DISEASE WITH MUSCLE PAIN TECHNIQUE: 2 view(s) of the shoulder. The upper arm is in internal rotation on both views. COMPARISON: None. FINDINGS: The glenohumeral joint space is not seen in tangent. There is degenerative narrowing of the acromioclavicular joint without inferior osseous spur formation. Normal acromion. Normal humeral head and visualized proximal humerus. The soft tissue structures are unremarkable. There is no demonstrated osseous destructive lesion or acute fracture. Normal visualized pulmonary apex. Incidental note of prior median sternotomy and probable CABG. There are multilevel degenerative changes of the thoracic spine. 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 The glenohumeral joint space is not seen in tangent, and therefore difficult to evaluate. The scapula and proximal humerus are unremarkable. Electronically Signed: Walker Valadez MD at 19:59 EST , Service support ,
--- NOTE | 2019-10-18 16:20 | RAD_ITS ---
STUDY: X-RAY - LEFT KNEE REASON FOR EXAM: Female, 84 years old. PAIN, NKI -- HX OF LEGIONNAIRES WITH MUSCLE PAIN TECHNIQUE: Four upright view(s) of the knee. COMPARISON: None. FINDINGS: Normal visualized distal femur. Normal visualized proximal tibia and fibula. Normal patella. There is no demonstrated destructive osseous lesion or acute fracture. There is borderline degenerative narrowing of the medial femorotibial compartment and faint chondrocalcinosis. Normal lateral femorotibial joint space, with faint chondrocalcinosis. Normal patellofemoral articulation. Normal proximal tibiofibular articulation. There is no significant joint effusion. The soft tissue structures are unremarkable. RAD/Knee 4 or More Views IMPRESSION: Borderline degenerative narrowing of the medial femorotibial joint compartment. Faint chondrocalcinosis also seen in the femorotibial joint spaces. Differential could include gout, calcium pyrophosphate deposition disease (CPPD), or hemachromatosis. Electronically Signed: Walker Valadez MD at 19:57 EST , Service support ,
--- NOTE | 2019-10-18 16:20 | RAD_ITS ---
STUDY: X-RAY - LUMBAR SPINE REASON FOR EXAM: Female, 84 years old. Atraumatic back pain. TECHNIQUE: 2 view(s) of the lumbar spine were obtained. COMPARISON: July 22, 2018 FINDINGS: Generalized osteopenia. Normal lumbar lordosis. There is no substantial scoliosis. There is a normal alignment of the vertebrae. Normal vertebral bodies and endplates. Diffuse intervertebral disc space narrowing with osteophytes most marked at L1-2 and L2-3. Stable diffuse facet sclerosis. Stable marked vascular calcification. Cholecystectomy clips. 2 mm in diameter calcification projected over the lower pole of the left kidney. RAD/Lumbar Spine 2 or 3 Views IMPRESSION: Stable osteopenia with moderate lumbar spondylosis. Left nephrocalcinosis. Electronically Signed: Neftaly Wyman MD at 14:50 EST , Service support ,
[2019-10-18 17:08] LABS: Absolute Lymphocyte Count 2.93 X10^3/uL (0.83-4.51); Absolute Neutrophil Count 7.4 X10^3/uL (2.0-7.7); Basophil# 0.09 X10^3/uL; Basophil% 0.8 % (0-1); Eosinophil# 0.21 X10^3/uL; Eosinophils% 1.8 % (0-5); Hematocrit 38.6 % (37-47); Hemoglobin 11.9 g/dL (12.0-15.0); Lymphocyte # 2.93 X10^3/ul (4.0); Lymphocyte % 25.6 % (19-41); Mean Corp Hgb Conc 30.8 g/dL (32-36); Mean Corpuscular Hgb 26.1 pg (27.0-32.0); Mean Corpuscular Volume 84.6 fL (81-99); Mean Platelet Vol. 11.5 fl (6.2-12.0); Monocyte# 0.76 X10^3/uL; Monocyte% 6.6 % (0-10); NRBC Flagged by Analyzer 0 % (0-5); Neutrophil # 7.36 X10^3/uL (2.7-7.7); Neutrophil % 64.4 % (47-70); Platelet Count 349 K/mm3 (150-450); RBC Distribution Width SD 46.2 fl (35.1-43.9); Red Blood Count 4.56 M/mm3 (4.2-5.4); White Blood Count 11.4 K/mm3 (4.4-11.0)
[2019-10-18 17:18] LABS: Erythrocyte Sedimentation Rate 18 mm/hr (0-30)
[2019-10-18 17:44] LABS: Anion Gap 7 (5-15); BUN 18 mg/dL (7-18); BUN/Creat Ratio 18.8 RATIO (10-20); CRP < 2.90 mg/L (0.0-3.0); Calcium,Total 9.1 mg/dL (8.5-10.1); Chloride 107 mmol/L (98-107); Creatinine, Serum 0.96 mg/dL (0.55-1.02); EST Glomerular Filtration Rate 59 mL/min (>60); Est Glom Filt Rate - Afr Amer 72 mL/min (>60); Glucose 155 mg/dL (74-106); Potassium 3.8 mmol/L (3.5-5.1); Sodium Level 140 mmol/L (136-145)
== END ==
PROVIDERS: PCP Family Medicine Geriatric Medicine; Referring Provider Family Medicine Geriatric Medicine; Visit Provider Family Medicine Geriatric Medicine
DX: M54.30 Sciatica, unspecified side (principal); M47.816 Spondylosis without myelopathy or radiculopathy, lumbar region; M17.12 Unilateral primary osteoarthritis, left knee; M19.012 Primary osteoarthritis, left shoulder
CPT/HCPCS: 36415; 72100; 73030; 73564; 80048; 85025; 85652; 86140

== ENCOUNTER 2019-10-22 10:56 | Inpatient (IN) | payer MEDICARE, SELFPAY ==
[2019-02-03 13:58] VITALS: BMI 27.8
[2019-10-22] VITALS (15 sets, daily range): BP systolic 119–145; BP diastolic 48–102; PULSE 72–109; RESP 16–26; TEMP 36.6–37.5; O2SAT 97–100; BMI 25.9; BMI 27.1; BMI 26.9; BMI 27.0
--- NOTE | 2019-10-22 11:25 | EKG12_ITS ---
Test Reason : NEURO Blood Pressure : / mmHG Vent. Rate : 092 BPM Atrial Rate : 092 BPM P-R Int : 134 ms QRS Dur : 110 ms QT Int : 370 ms P-R-T Axes : 040 -20 054 degrees QTc Int : 457 ms Sinus rhythm with sinus arrhythmia with occasional Premature ventricular complexes Incomplete right bundle branch block Borderline ECG Confirmed by VINAY CORONA, CORY ([id number]), assignment desk editor ROBERT MELGAR ([id number]) on 10/25/2019 12:11:20 PM Referred By: DENISSE Confirmed By:CORY MCLEAN MD
--- NOTE | 2019-10-22 11:26 | CT_ITS ---
STUDY: CTA HEAD AND NECK WITH CONTRAST REASON FOR EXAM: Female, 84 years old. UNABLE TO SPEAK/NUMBNESS TO B/L ARMS x 2 days RADIATION DOSAGE (If Supplied By Facility): CTDIvol = ( 22.48 ) mGy, DLP = ( 1454.74 ) mGycm TECHNIQUE: CT angiography was performed with a multi-detector CT scanner. Data acquisition was obtained from the skull base through the vertex following intravenous administration of 75 ml isovue 370. MIP images were reconstructed from the axial data set. Post-processing of the angiographic images was performed, with multiplanar reformation and 3D reconstruction. Individualized dose optimization techniques were used for this CT. COMPARISON: No relevant priors. FINDINGS: Normal bilateral petrous carotid arteries. There is calcified plaque formation of the right cavernous carotid artery, without a cross-sectional luminal stenosis. There is calcified plaque formation of the left cavernous carotid artery, without a cross-sectional luminal stenosis. Normal right A1 segments of the anterior cerebral artery. Normal left A1 segments of the anterior cerebral artery. Normal intact anterior communicating artery (ACOM). Normal bilateral A2 segments of the anterior cerebral arteries. Normal right M1 and M2 segments of the middle cerebral arteries, with a normal M1 bifurcation. Normal left M1 and M2 segments of the middle cerebral arteries, with a normal M1 bifurcation. Normal right posterior communicating artery (PCOM). Normal left posterior communicating artery (PCOM). Normal bilateral vertebral arteries. Normal basilar artery with a normal basilar bifurcation. The visualized bilateral superior cerebellar (SCA) arteries are normal. Normal bilateral P1, P2 and visualized P3 segments of the posterior cerebral arteries. There is no demonstrated aneurysm of the [place]. There is no demonstrated abnormality of the visualized brain. AORTIC ARCH: There is atherosclerotic calcific plaque formation of the aortic arch and great vessels arising from the aortic arch, without a hemodynamically significant stenosis. There is a normal origin of the brachiocephalic, left common carotid, and left subclavian arteries. RIGHT CAROTID ARTERIES: Normal right common carotid artery (CCA). Normal right common carotid bulb. There is mild atherosclerotic plaque formation of the origin of the right internal carotid artery with less than 50% cross sectional diameter stenosis. Normal visualized cervical portion of the right internal carotid artery. Normal origin of the right external carotid artery (ECA). LEFT CAROTID ARTERIES: Normal left common carotid artery (CCA). Normal left common carotid bulb. There is mild atherosclerotic plaque formation of the origin of the left internal carotid artery with less than 50% cross sectional diameter stenosis. Normal visualized cervical portion of the left internal carotid artery. Normal origin of the left external carotid artery (ECA). VERTEBRAL ARTERIES: Normal bilateral vertebral arteries. CT/CTA Head AND Neck W/ Contrast IMPRESSION: Mild degree of calcific atherosclerotic plaques at the origin of the right and left internal carotid artery with less than 50% stenosis. Electronically Signed: Farzad Banks, at 12:37 EST , Service support ,
--- NOTE | 2019-10-22 11:28 | ED.DCSUM_ITS ---
- ER Visit Summary Date of Service: 10/22/19 Chief Complaint: Transient numbness. History of Present Illness: The patient is a 84 F 3 of CAD with [place] and 7 cardiac stents. Prior triple bypass. Also history of insulin-dependent diabetes hypertension. Yesterday patient had episodes where she had numbness in both upper and lower extremities at different times. Usually it was both sides at the same time. Sometimes she had questionable ability to speak. Currently her symptoms are totally resolved. She denies any headache. No recent head injury. She is on both Plavix and aspirin for her cardiac stents. She is never reportedly had a TIA or stroke before. She denies any other recent illness. Currently she is symptom-free. Physical Examination: Elderly female no acute distress. Accompanied by family. Vital signs are stable afebrile. H EENT exam normal. Dry reactive light. No facial droop. Tongue midline. Normal speech. Neck nontender no lymphadenopathy. Lungs clear to auscultation. Heart regular rhythm no murmur. Abdomen soft and nontender. Normal bowel sounds no peritoneal signs. Extremities moves all 4. Calves nontender, no edema no cords. Bilateral 5-5 configuration management consultant strength. Dorsi plantarflexion intact. Neurologic exam currently is normal NIH is 0. Fingertip to nose and [id number] within normal limits. Normal motor strength and sensation of both upper and lower extremities. Normal 5 out of 5 configuration management consultant strength dorsi and plantar flexion. Test Results: Chest x-ray no acute abnormality. Borderline cardiomegaly. Read both by myself and radiologist. One-view portable. CTA head neck is chronic plaques but less than 50% stenosis on either internal carotid artery. Read by the radiologist reviewed by me. EKG sinus rhythm rate of 92 with PACs. CBC shows no elevated white count 21,000 she is currently on prednisone. Her h emoglobin is low at 7.8 previously was nearly 11. That is changed in the last 4 days. She has no infectious symptoms. No fever. No chills. No dysuria. No cough. Chemistries unremarkable except BUN of 69 creatinine 1.2 she is on diuretics. Her creatinine is been that high or higher before. Emergency Department Course and Treatment: Patient has a normal exam currently. She will undergo a stroke/TIA work-up. Including a CTA of the head and neck. Repeat exam the patient is doing well at 1535. Her repeat exam is normal. Her neurologic exam remains normal. I discussed all test results with both her and the female present in the room. Nurse and I were discussing the labs and realized her last hemoglobin was only 4 days ago and she is dropped almost 4 units of blood. For that reason we discussed with her and she has had some dark stools initially we were unaware of. I did a rectal exam with the nurse present in the room and she did have a small amount of black stool. The concern is with her elevated BUN, being on Plavix, and having black stool that she may be having a GI bleed. Patient be given Protonix IV and I will spoke to the hospitalist about admission for further evaluation of anemia and GI bleed. She has been typed and crossed but would not be transfused at this time. Treatment Plan: Admission for anemia and rule out GI bleed Disposition: [place] Impression: Transient bilateral upper and bilateral lower extremity numbness resolved of uncertain etiology Acute anemia with black stool Rule out upper GI bleed rule out upper GI bleed Anticoagulated on Plavix and aspirin History of CAD, triple bypass and cardiac stents This note was generated with [employer] dictation software. It may contain incorrect words, spelling, and punctuation that were not noted in review of the chart prior to signing ED Disposition - Plan for ED Patient: Disposition: Home or Assisted Living Referrals: Brian Degroot Chi, MD [Primary Care Provider] - 3-5 Days Additional Instructions: Follow-up with your doctor. Return if feeling worse.
[2019-10-22 11:37] LABS: Absolute Lymphocyte Count 3.63 X10^3/uL (0.83-4.51); Absolute Neutrophil Count 15.8 X10^3/uL (2.0-7.7); Basophil# 0.05 X10^3/uL; Basophil% 0.2 % (0-1); Eosinophil# 0.04 X10^3/uL; Eosinophils% 0.2 % (0-5); Hematocrit 23.7 % (37-47); Hemoglobin 7.8 g/dL (12.0-15.0); Lymphocyte # 3.63 X10^3/ul (4.0); Mean Corp Hgb Conc 32.9 g/dL (32-36); Mean Corpuscular Hgb 27.7 pg (27.0-32.0); Mean Platelet Vol. 11.8 fl (6.2-12.0); Monocyte# 1.43 X10^3/uL; Monocyte% 6.7 % (0-10); NRBC Flagged by Analyzer 0.1 % (0-5); Neutrophil # 15.78 X10^3/uL (2.7-7.7); Neutrophil % 74.1 % (47-70); Platelet Count 342 K/mm3 (150-450); RBC Distribution Width CV 15.5 % (11.6-14.6); Red Blood Count 2.82 M/mm3 (4.2-5.4); White Blood Count 21.3 K/mm3 (4.4-11.0)
[2019-10-22 11:56] LABS: Anion Gap 10 (5-15); BUN 69 mg/dL (7-18); Calcium,Total 9.5 mg/dL (8.5-10.1); Chloride 109 mmol/L (98-107); Creatinine, Serum 1.21 mg/dL (0.55-1.02); EST Glomerular Filtration Rate 45 mL/min (>60); Est Glom Filt Rate - Afr Amer 55 mL/min (>60); Estimated Creatinine Clearance 30.95 ml/min; Glucose 209 mg/dL (74-106); Potassium 3.5 mmol/L (3.5-5.1); Sodium Level 141 mmol/L (136-145)
--- NOTE | 2019-10-22 11:56 | RAD_ITS ---
STUDY: X-RAY CHEST REASON FOR EXAM: Female, 84 years old. INTERMITTENT EPISODES OF NUMBNESS TO BILATERAL ARMS, UNABLE TO SPEAK. HAD 3 EPISODES YESTERDAY. NO EPISODES TODAY -- HX OF HTN, LA WITH CABG, CAD TECHNIQUE: Single AP portable view of the chest. COMPARISON: Comparison is made with prior study dated February 01, 2019. FINDINGS: EKG electrodes are seen. The lungs are clear and expanded. There is no demonstrated pleural abnormality. Sternal cerclage wires and vascular clips are present from a prior sternotomy and coronary artery bypass graft procedure (CABG). Borderline cardiomegaly. Normal mediastinum and norma. Normal visualized pulmonary arteries. There is atherosclerotic calcification of the aortic arch with tortuosity. Normal visualized thoracic spine. Healed right-sided rib fractures. There is no demonstrated abnormality of the visualized soft tissue structures of the upper abdomen. RAD/Chest 1 View IMPRESSION: Borderline cardiomegaly. No acute abnormality is seen. Electronically Signed: Farzad Banks, at 12:26 EST , Service support ,
--- NOTE | 2019-10-22 15:38 | ED.DEP ---
ED Disposition - Plan for ED Patient: Disposition: Home or Assisted Living Referrals: Brian Degroot Chi, MD [Primary Care Provider] - 3-5 Days Additional Instructions: Follow-up with your doctor. Return if feeling worse.
[2019-10-22 17:15] LABS: Bedside Glucose 174 mg/dL (70-110)
--- NOTE | 2019-10-22 17:36 | HP.PCM_ITS ---
Problem List (1) UGI bleed Status: Acute (2) Acute blood loss anemia Status: Acute (3) SALONI (acute kidney injury) Status: Acute (4) Leukocytosis Status: Acute (5) Hypothyroidism Status: Chronic (6) Overweight (BMI 25.0-29.9) Status: Chronic (7) CAD (coronary artery disease) Status: Chronic Qualifiers: Coronary Disease-Associated Artery/Lesion type: [place] artery (8) History of non-ST elevation myocardial infarction (NSTEMI) Status: Chronic (9) (HFpEF) heart failure with preserved ejection fraction Status: Chronic (10) Essential (primary) hypertension Status: Chronic (11) 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 myocardial infarction Status: Chronic (12) Atherosclerosis of coronary 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 Status: Chronic Comment: PWZ-UTA-RHY-D1 w/ 2.5 x 16 mm Promus Synergy Stent 02/03/19 TDU-KOH-Dlts-Mid OM1 w/ 2.25 x 12 mm Promus Premier 12/30/2013 SGL-SWE-RGT-Prox-Mid OM2 w/ 3.0 x 23 mm Promus Stent 03/05/2010 PPF-CYD-HHA-OM2 w/ Taxus Stent 04/2006 CABG x 3 SVG to D1, SVG-OM & SVG-RCA (13) History of coronary artery stent placement Status: Chronic Comment: PVD-QUT-MPG-D1 w/ 2.5 x 16 mm Promus Synergy Stent 02/03/19 XGX-LMO-Wayc-Mid OM1 w/ 2.25 x 12 mm Promus Premier 12/30/2013 SJU-KOG-OHQ-Prox-Mid OM2 w/ 3.0 x 23 mm Promus Stent 03/05/2010 MWR-AVI-APQ-OM2 w/ Taxus Stent 04/2006 (14) H/O coronary artery bypass surgery Status: Chronic Comment: CABG x 3 SVG to D1, SVG-OM & SVG-RCA (15) SVT (supraventricular tachycardia) Status: Chronic (16) HLD (hyperlipidemia) Status: Chronic Qualifiers: (17) Diabetes mellitus type 2 in nonobese Status: Acute (18) Venous insufficiency Status: Acute (19) Fibromyalgia Status: Acute (20) Reactive arthritis Status: Suspected (21) Degenerative disc disease Status: Chronic Qualifiers: Spinal region: lumbar Qualified Code(s): M51.36 - Other intervertebral disc degeneration, lumbar region (22) PVD (peripheral vascular disease) Status: Chronic History of Present Illness Date of Admission: 10/22/19 Chief Complaint: dark stool with lightheadedness when standing The patient is a 84 year old F with a past medical history of hypertension, coronary artery disease, multiple PTCAs with stents, history of CABG, diabetes mellitus type 2, dang esophagitis in 2018, hypothyroidism, obesity, degenerative disc disease and degenerative joint disease of the lumbar spine, fibromyalgia, arthritis (negative RA and DEANNE), hyperlipidemia, TIA and SVT who presented to the ED at [facility] on 10/22/19 c/o BL arm numbness and inability to speak 3 times on 10/21 and no episodes on 10/22. She also c/o lightheadedness with standing. She stated for the preceding 2 days she had been having dark stool. She is on iron but, the stool is much darker than it usually is. She denied CP, SOB, palpitations. No N/V/abdominal pain. She is on ASA and Plavix chronically and on Friday of this past week she went to see her PCP with c/o severe joint pain and she tells me she received 5 injections. The Left knee and the left shoulder for sure. She is also on Prednisone 10 mg daily for the past 2 days and she is on Diclofenac. She denies any hx of PUD. She had an EGD by Dr. Felder in 2017 and was diagnosed with dang esophagitis. Vital signs at presentation to the emergency room were temperature 97.8, pulse rate 109, blood pressure 142/65, respiratory rate 18 and she was 100% saturated on room air. Hemoccult stool was negative. CBC showed an elevated white blood cell count of 21.3 but I presume that this is from steroids because she denies fever/chills/dysuria/cough. Hemoglobin was 7.8, down from 11.9 on 10/18/2019. Platelets were within normal limits. MCV was 84 and the RDW was increased. The creatinine was increased from 1.21 and in January 2019 it was 0.81. The BUN was certainly out of proportion to the creatinine at 69. Potassium was borderline low at 3.5. Chest x-ray was personally reviewed and per my review shows no infiltrates, pleural effusions or pulmonary vascular congestion. she is being admitted to a monitored bed with a diagnosis of acute UGI bleed more likely than not medication induced. She had an ECHO in January 2019 and this showed a normal ejection fraction and with +1 MR and no other significant findings. Past Medical History Past Medical History (Chronic Problems): Chronic Problems (Last Reviewed 10/22/19 @ 18:01 by Ainsley Taylor DO) Hypothyroidism (Chronic) Overweight (BMI 25.0-29.9) (Chronic) CAD (coronary artery disease) (Chronic) Degenerative disc disease (Chronic) PVD (peripheral vascular disease) (Chronic) History of non-ST elevation myocardial infarction (NSTEMI) (Chronic 02/02/19) (HFpEF) heart failure with preserved ejection fraction (Chronic) Essential (primary) hypertension (Chronic) 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) RJJ-ZMH-VXZ-D1 w/ 2.5 x 16 mm Promus Synergy Stent 02/03/19 BVK-ZIU-Mxuc-Mid OM1 w/ 2.25 x 12 mm Promus Premier 12/30/2013 CLC-FGP-JEP-Prox-Mid OM2 w/ 3.0 x 23 mm Promus Stent 03/05/2010 NLO-LIC-NQK-OM2 w/ Taxus Stent 04/2006 CABG x 3 SVG to D1, SVG-OM & SVG-RCA History of coronary artery stent placement (Chronic 02/03/19) LCU-BME-VMG-D1 w/ 2.5 x 16 mm Promus Synergy Stent 02/03/19 YTG-THE-Ykqe-Mid OM1 w/ 2.25 x 12 mm Promus Premier 12/30/2013 OMI-AZG-ZBM-Prox-Mid OM2 w/ 3.0 x 23 mm Promus Stent 03/05/2010 ZXF-KOV-TSF-OM2 w/ Taxus Stent 04/2006 H/O coronary artery bypass surgery (Chronic 09/08/92) CABG x 3 SVG to D1, SVG-OM & SVG-RCA SVT (supraventricular tachycardia) (Chronic) HLD (hyperlipidemia) (Chronic) Medical History: Medical History (Last Reviewed 10/22/19 @ 18:01 by Ainsley Taylor DO) (HFpEF) heart failure with preserved ejection fraction (Chronic) I50.30 Essential (primary) hypertension (Chronic) I10 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 myocardial infarction (Chronic) I25.2 Atherosclerosis of coronary 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 (Chronic) I25.810 IRM-SVF-RPT-D1 w/ 2.5 x 16 mm Promus Synergy Stent 02/03/19 LMZ-GCV-Qdev-Mid OM1 w/ 2.25 x 12 mm Promus Premier 12/30/2013 QLI-MUR-OOF-Prox-Mid OM2 w/ 3.0 x 23 mm Promus Stent 03/05/2010 IPZ-PIU-YRR-OM2 w/ Taxus Stent 04/2006 CABG x 3 SVG to D1, SVG-OM & SVG-RCA SVT (supraventricular tachycardia) (Chronic) I47.1 HLD (hyperlipidemia) (Chronic) E78.5 Acute esophagitis K20.9 Anemia D64.9 Bruit R09.89 DDD (degenerative disc disease), lumbar M51.36 Debility R53.81 GI bleed K92.2 History of TIA (transient ischemic attack) Z86.73 Hypothyroidism E03.9 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 Right lumbar radiculitis M54.16 Segmental and somatic dysfunction of lumbar region M99.03 Segmental and somatic dysfunction of pelvic region M99.05 Type 2 diabetes mellitus without complications E11.9 GI bleed (Resolved) K92.2 Pneumonia J18.9 Sepsis (Resolved) A41.9 Abnormal finding on cardiovascular stress test (Inactive) R94.39 Angina pectoris (Inactive) I20.9 Blood in stool K92.1 Allergies No Known Allergies Allergy (Verified 10/22/19 10:59) Home Medications: Ambulatory Orders Medication Instructions Recorded Nitroglycerin (INPATIENT USE) 0.4 mg SUBLINGUAL Q5M PRN 12/21/13 [Nitrostat] ergocalciferol (vitamin D2) 1,250 50,000 unit PO QMONTH 11/18/17 mcg (50,000 unit) capsule Aspirin [Aspirin, Baby] 81 mg PO DAILY@0800 07/30/18 isosorbide mononitrate 30 mg 30 mg PO QAM #90 tab 11/03/18 tablet,extended release 24 hr metoprolol succinate 50 mg 50 mg PO DAILY #90 tab 11/17/18 tablet,extended release 24 hr Glipizide/Metformin HCl 2 tab PO BID 02/01/19 [Glipizide-Metformin 2.5-250 mg] Levothyroxine [Synthroid] 137 mcg PO DAILY 02/01/19 atorvastatin 40 mg tablet 40 mg PO QHS 30 Days #30 tab 03/12/19 furosemide 40 mg tablet 40 mg PO DAILY #90 tab 03/12/19 Baclofen 10 mg PO QHS 10/22/19 Clopidogrel Bisulfate [Plavix] 75 mg PO DAILY 10/22/19 Diclofenac Sodium 25 mg PO BID 10/22/19 Gabapentin [Neurontin] 100 mg PO QHS 10/22/19 Insulin Glargine,Hum.rec.anlog 35 unit SUBCUT DAILY 10/22/19 [Toujeo Max Solostar] Iron Polysaccharide Complex 150 mg PO DAILYCM 10/22/19 [Ferrex 150] Losartan Potassium [Cozaar] 100 mg PO DAILY 10/22/19 Potassium Chloride 40 meq PO BID 10/22/19 Prednisone 10 mg PO DAILY 10/22/19 Surgical History: Surgical History (Last Reviewed 10/22/19 @ 18:01 by Ainsley Taylor DO) History of coronary artery stent placement (Chronic) Onset Date: 02/03/19 Z95.5 UQF-RXL-GJR-D1 w/ 2.5 x 16 mm Promus Synergy Stent 02/03/19 JCC-LAF-Qzgk-Mid OM1 w/ 2.25 x 12 mm Promus Premier 12/30/2013 LEK-VIN-PTB-Prox-Mid OM2 w/ 3.0 x 23 mm Promus Stent 03/05/2010 JBA-PHB-IKH-OM2 w/ Taxus Stent 04/2006 H/O coronary artery bypass surgery (Chronic) Onset Date: 09/08/92 Z95.1 CABG x 3 SVG to D1, SVG-OM & SVG-RCA History bilateral cataract surgery History of colonoscopy Onset Date: 04/24/18 Z98.890 History of esophagogastroduodenoscopy (EGD) Onset Date: 04/24/18 Z98.890 History of hemorrhoidectomy Z98.890 History of laparoscopic cholecystectomy Z90.49 Surgical History: angioplasty, appendectomy, cholecystectomy, coronary bypass surgery, hysterectomy, - - Appendectomy, cholecystectomy, CABG x 3, PCI x 3, coronary artery stenting, hysterectomy. Psychiatric History: No pertinent psych hx MEDICAL DOCTOR MD/MEDICAL DIRECTOR History: No pertinent MEDICAL DOCTOR MD/MEDICAL DIRECTOR history Lives: Alone Smoking Status: Former smoker Tobacco Use: Non-smoker Alcohol: None Drugs: None - *Family History Maternal Family History: Family History (Last Reviewed 10/22/19 @ 18:02 by Ainsley Taylor DO) Mother Colon cancer Mother Heart disease History Items: Heart Disease Paternal Family History: Family History (Last Reviewed 10/22/19 @ 18:02 by Ainsley Taylor DO) Mother Colon cancer Mother Heart disease History Items: - - No marked paternal history of HD, CA, DM. The patient's father was killed in World War II. Review of Systems Constitutional: Denies: Anorexia, Chills, Fever, Weight Change Eyes: Denies: Blurred vision HEENT: Denies: Difficulty Hearing, Difficulty Swallowing, Head Aches, Sinus Congestion, Sinus Drainage Cardiovascular: Reports: Edema - this is chronic.....she has a normal EF and she wears MARICHUY hose to control the edema, Light Headedness - when standing. Denies: Chest Pain, Orthopnea, Palpitations, Syncope Respiratory: Denies: Cough, Shortness of Breath, Shortness of breath at rest, Sputum production Gastrointestinal: Reports: Diarrhea, - - she has dark black stool. Denies: Abdominal Pain, Nausea, Vomiting Genitourinary: Denies: Dysuria, Frequency Gynecological: Denies: Breast symptoms, Vaginal discharge Musculoskeletal: Reports: Joint Pain - none today......the joint pain was gone on Friday of this week and she went shopping with her dtr and walked without difficulty. Denies: Joint Tenderness Skin: Denies: Jaundice, Rash, Wounds Neurological: Denies: Balance problems, Change in Speech, Slurred speech, Confusion, Difficulty swallowing, Focal weakness, Numbness, Tingling, Tremor, Seizures Psychiatric: Denies: Anxiety, Depression, Homicidal Ideations, Suicidal Ideations Endocrine: Reports: - - She has a history of hypothyroidism Hematologic/ Lymphatic: Denies: Easy Bruising, Easy Bleeding, Hx of blood clot VTE Information - Inpt Only VTE Present on Admission: No VTE Mechan Device Prophylaxis: SCD's, Knee High MARICHUY Hose VTE Pharm Prophylaxis ordered?: No Reason prophylaxis not ordered:: Treatment Not Indicated - pt has acute blood loss anemia due to a GI bleed Patient Problems: Active and Suspected Problems (Last Reviewed 10/22/19 @ 18:01 by Ainsley Taylor DO) UGI bleed (Acute) Acute blood loss anemia (Acute) SALONI (acute kidney injury) (Acute) Leukocytosis (Acute) Diabetes mellitus type 2 in nonobese (Acute) Venous insufficiency (Acute) Fibromyalgia (Acute) Reactive arthritis (Suspected) - Physical Exam Vitals/I&O's: Vital Signs Temp Pulse Resp BP Pulse Ox 97.8 F 99 18 130/102 H 99 10/22/19 10:57 10/22/19 16:24 10/22/19 16:24 10/22/19 16:24 10/22/19 16:24 Oxygen Delivery Method Room Air Weight: 158 lb 1.143 oz Body Mass Index (BMI) 27.1 Finger Stick Blood Glucose 174 Intake and Output for Last 24 Hours 10/20/19 10/21/19 10/22/19 23:59 23:59 23:59 Intake Total 500 / 500 Balance 500 / 500 General: Alert, Oriented x3, Cooperative, No apparent distress, - - she is pale HEENT: Atraumatic, PERRLA, EOMI, Normocephalic Oral: Dry Mucosa Neck: Supple, No JVD, Negative Carotid Bruits, No Nodes, Trachea Midline Lungs: Clear to auscultation, Normal air movement, No rhonchi, No wheeze, No rales Cardiovascular: Regular Rhythm, Normal S1, Normal S2, No murmurs, No Gallop, Tachycardic, - - occassional ectopic beat Abdomen: Bowel Sounds Present, Soft, Non Tender, Non-Distended, - - BS's are not hyperactive. No guarding with palpation. Extremities: No clubbing, No cyanosis, No Calf Tenderness, Diminished Peripheral Pulses, Edema - +1 pitting edema of the distal LE's......she does not have her compression stockings on and her legs are dependent, - - the nail beds are pale Skin: No rashes, No breakdown Musculoskeletal: No Tenderness to Palpation of Joints or Extremities - there are no red, swollen or erythematous joints, No Muscle Wasting Neurological: Cranial nerves II-XII grossly intact, Neuro grossly intact Psych/Mental Status: Normal Affect, Appropriate Laboratory Results 10/22/19 11:20: WBC 21.3 H, RBC 2.82 L, Hgb 7.8 L, Hct 23.7 L, MCV 84.0, MCH 27.7, MCHC 32.9, RDW Std Deviation 47.0 H, RDW Coeff of Miko 15.5 H, Plt Count 342, MPV 11.8, Immature Gran % (Auto) 1.800 H, Neut % (Auto) 74.1 H, Lymph % (Auto) 17.0 L, [place] % (Auto) 6.7, Eos % (Auto) 0.2, Baso % (Auto) 0.2, Absolute Neuts (auto) 15.8 H, Absolute Lymphs (auto) 3.63, Nucleated RBC % 0.1 10/22/19 11:20: Sodium 141, Potassium 3.5, Chloride 109 H, Carbon Dioxide 22.0, Anion Gap 10, BUN 69 H, Creatinine 1.21 H, Estim Creat Clear Calc 30.95, Est GFR (MDRD) Af Amer 55 L, Est GFR (MDRD) Non-Af 45 L, BUN/Creatinine Ratio 57.0 H, Glucose 209 H, Calcium 9.5 10/22/19 16:55: Blood Type Pending, Antibody Screen Pending, Crossmatch See Detail 10/22/19 17:08: POC Glucose 174 H Current Medications Acetaminophen (Tylenol) 650 mg PO Q6H PRN PRN PRN Reason: Pain Score 1-3/Temp > 100.7 F Al Hydroxide/Mg Hydroxide (Mylanta Ii) 30 ml PO Q6H PRN PRN PRN Reason: Gastric Burning Aspirin (Aspirin, Baby) 81 mg PO DAILY@0800 LARRY Atorvastatin Calcium (Lipitor) 40 mg PO QHS LARRY Baclofen (Lioresal) 10 mg PO QHS LARRY Dextrose (D50w Syringe) 0 gm IV X1 PRN; Protocol PRN Reason: Hypoglycemia Ergocalciferol (Vitamin D) 50,000 unit PO QWEEK LARRY Gabapentin (Neurontin) 100 mg PO QHS LARRY Glucagon () 1 mg IM .X1 PRN PRN Reason: Hypoglycemia Sodium Chloride () 500 mls @ 999 mls/hr IV .Q31M ONE Last Infusion: 10/22/19 12:14 Dose: Infused Documented by: Potassium Chloride/Sodium Chloride () 1,000 mls @ 100 mls/hr IV .Q10H LARRY Pantoprazole Sodium 80 mg/ (Sodium Chloride) 100 mls @ 10 mls/hr CONT INF Q10H [facility] Pantoprazole Sodium 80 mg/ (Sodium Chloride) 35 mls @ 420 mls/hr IV BOLUS X1 ONE Stop: 10/22/19 17:36 Insulin Human Lispro (Humalog Kwikpen (Bkc)) 0 unit SC ACHS LARRY; Protocol Isosorbide Mononitrate (Imdur) 30 mg PO QAM LARRY Levothyroxine Sodium (Synthroid) 137 mcg PO DAILY LARRY Losartan Potassium (Cozaar) 100 mg PO DAILY LARRY Magnesium Hydroxide (Milk Of Magnesia) 30 ml PO DAILY PRN PRN PRN Reason: Constipation Melatonin (Melatonin) 3 mg PO QHS PRN PRN PRN Reason: INSOMNIA Metoprolol Succinate (Toprol Xl (Beta Antwon)) 50 mg PO DAILY [facility] Morphine Sulfate () 1 - 2 mg IV Q3H PRN PRN PRN Reason: Pain Score 6-10/10 Nitroglycerin (Nitrostat) 0.4 mg SUBLINGUAL Q5M PRN PRN Reason: CHEST Ondansetron HCl (Zofran) 4 mg IV Q8H PRN PRN PRN Reason: NAUSEA/VOMITING Potassium Chloride (K-Dur) 20 meq PO X1 ONE Stop: 10/22/19 17:33 Assessment/Plan All Active Problems (Last Reviewed 10/22/19 @ 18:01 by Ainsley Taylor DO) UGI bleed (Acute) Acute blood loss anemia (Acute) SALONI (acute kidney injury) (Acute) Leukocytosis (Acute) Diabetes mellitus type 2 in nonobese (Acute) Venous insufficiency (Acute) Fibromyalgia (Acute) GI bleed (Resolved) Legionella pneumonia (Resolved) Lower extremity ulceration (Resolved) Pneumonia (Resolved) Sepsis (Resolved) Wound of right leg (Resolved) Impressions 1. Acute on chronic anemia due to UGI bleed more likely than not due to the combined effects of ASA, Plavix, 5 recent joint injections, Prednisone and diclofenac. Started on a Protonix infusion after a bolus. Clear liquids only tonight. Consult Dr. Robotham.... the vitals are stable and she is not having melena and the BS's are not hyperactive so she will see the patient in the AM. Transfuse 2 units of PRBC's and keep 2 on hold. Check the HH Q 6H. Hold ASA, Plavix, Diclofenac and Prednisone. 2. Acute kidney insufficiency with a creatinine of 1.21, up from 0.96 on 10/18/2019. BUN is out of proportion to the CREAT which is consistent with a GIB even though the hemoccult stool in the ED was reported as negative. 3. suspected reactive arthritis - had no sx until she had Legionella 3 years ago. ESR and CRP were unremarkable on 10/18/19 and she has had a negative RA, DEANNE and anti-CCP. I recommended she follow up at the [facility] on [facility]. 4. Fibromyalgia-on gabapentin at bedtime 5. chronic medical illnesses including hypothyroidism, coronary artery disease, history of heart failure with preserved ejection fraction, hypertension, CABG, multiple stents, lipidemia, uncontrolled diabetes mellitus type 2, venous insufficiency, degenerative disc disease in the lumbar spine -complicate care, management and prognosis. Code Visit Inpatient E&M: 84901 Init Hosp L3
[2019-10-22 18:15] LABS: Hematocrit 21.2 % (37-47); Hemoglobin 6.8 g/dL (12.0-15.0)
[2019-10-22] MEDS: 0.9% Saline Lock 10 ML Syringe IV (18:20)
[2019-10-22 18:30] LABS: Hemoglobin A1c 10.8 % (4.2-6.3)
[2019-10-22 20:26] LABS: Bacteria 0 SEEN /hpf (None Seen); Mucous, Urine 0 SEEN /hpf (<or=2+); Red Blood Cells-Urine 0 SEEN /hpf (0-5); White Blood Cells 0 SEEN /hpf (0-5)
[2019-10-22 20:33] LABS: Color, Urine Yellow (Yellow); Glucose, Dipstick 250 mg/dl (Normal); Ketone-Dipstick Negative (Negative); Leukocyte Esterase-Dipstick Negative /ul (Negative); Nitrite-Dipstick Negative (Negative); Occult Blood-Urine Negative /ul (Negative); Protein-Dipstick Negative (Negative); Specific Gravity, Urine 1.015 (1.002-1.030); Urine Bilirubin Dipstick Negative (Negative); Urine Clarity Sl. Cloudy (Clear); Urine Urobilinogen Normal (Normal)
[2019-10-22 20:53] LABS: Squamous Epithelial Cells - UA 0-5 SEEN /hpf (5-10)
[2019-10-22] MEDS: Atorvastatin Calcium 40 MG Tablet PO (21:27)
[2019-10-22] MEDS: Baclofen 10 MG Tablet PO (21:27)
[2019-10-22] MEDS: Gabapentin 100 MG Capsule PO (21:27)
[2019-10-22] MEDS: Insulin Lispro 100 UNIT/ML INSULN.PEN SC (21:27)
[2019-10-22 21:36] LABS: Bedside Glucose 216 mg/dL (70-110)
[2019-10-22] MEDS: Acetaminophen 325 MG Tablet 650 MG PO (22:26)
[2019-10-23] VITALS (11 sets, daily range): BP systolic 135–157; BP diastolic 57–80; PULSE 72–84; RESP 16–18; TEMP 36.6–37.2; O2SAT 96–98
[2019-10-23] MEDS: 0.9% Saline Lock 10 ML Syringe IV ×2 (01:13→08:46)
[2019-10-23 04:35] LABS: Hematocrit 26.6 % (37-47); Hemoglobin 8.3 g/dL (12.0-15.0); Mean Corp Hgb Conc 31.2 g/dL (32-36); Mean Corpuscular Hgb 28.6 pg (27.0-32.0); Mean Corpuscular Volume 91.7 fL (81-99); Mean Platelet Vol. 11.9 fl (6.2-12.0); Platelet Count 221 K/mm3 (150-450); RBC Distribution Width CV 14.9 % (11.6-14.6); RBC Distribution Width SD 49.4 fl (35.1-43.9); White Blood Count 14.5 K/mm3 (4.4-11.0)
[2019-10-23] MEDS: Levothyroxine 137 MCG Tablet PO (06:31)
[2019-10-23 06:36] LABS: Bedside Glucose 114 mg/dL (70-110)
--- NOTE | 2019-10-23 07:25 | CON.PCM_ITS ---
Reason for Consult Date of Consultation: 10/23/19 History of Present Illness: The patient is a 84 year old F admitted for anemia and melena. Pt isn't the best historian, more concentrated on all her body pain in her back and left knee. Pt did get 5 injections at PCP office and is on asa/plavix. Pt states s he did have another black BM but it also had green in it. Pt received 2 units PRBC for Hb 6.8 now 8.3, additional units on hold. Pt denies n/v. Pt last stent was in 01/2019. Past Medical History Past Medical History (Chronic Problems): Chronic Problems (Last Updated 10/23/19 @ 07:34 by Hermilo Elizabeth MD) History of non-ST elevation myocardial infarction (NSTEMI) (Chronic 02/02/19) Hypothyroidism (Chronic) Overweight (BMI 25.0-29.9) (Chronic) CAD (coronary artery disease) (Chronic) Diabetes mellitus type 2 in nonobese (Chronic) Venous insufficiency (Chronic) Fibromyalgia (Chronic) Degenerative disc disease (Chronic) PVD (peripheral vascular disease) (Chronic) (HFpEF) heart failure with preserved ejection fraction (Chronic) Essential (primary) hypertension (Chronic) 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) ADO-UKE-WTV-D1 w/ 2.5 x 16 mm Promus Synergy Stent 02/03/19 TYB-MKH-Lrfd-Mid OM1 w/ 2.25 x 12 mm Promus Premier 12/30/2013 GBT-UXN-UCE-Prox-Mid OM2 w/ 3.0 x 23 mm Promus Stent 03/05/2010 LJW-TMK-CMX-OM2 w/ Taxus Stent 04/2006 CABG x 3 SVG to D1, SVG-OM & SVG-RCA History of coronary artery stent placement (Chronic 02/03/19) IZB-IXD-COE-D1 w/ 2.5 x 16 mm Promus Synergy Stent 02/03/19 DSE-FCP-Jryw-Mid OM1 w/ 2.25 x 12 mm Promus Premier 12/30/2013 SOU-HLN-AUK-Prox-Mid OM2 w/ 3.0 x 23 mm Promus Stent 03/05/2010 XEC-XKY-GRC-OM2 w/ Taxus Stent 04/2006 H/O coronary artery bypass surgery (Chronic 09/08/92) CABG x 3 SVG to D1, SVG-OM & SVG-RCA SVT (supraventricular tachycardia) (Chronic) HLD (hyperlipidemia) (Chronic) Medical History: Medical History (Last Updated 10/23/19 @ 07:34 by Hermilo Elizabeth MD) (HFpEF) heart failure with preserved ejection fraction (Chronic) I50.30 Essential (primary) hypertension (Chronic) I10 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 myocardial infarction (Chronic) I25.2 Atherosclerosis of coronary 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 (Chronic) I25.810 YCS-EWT-OBD-D1 w/ 2.5 x 16 mm Promus Synergy Stent 02/03/19 KDS-PFA-Fwvi-Mid OM1 w/ 2.25 x 12 mm Promus Premier 12/30/2013 QNT-XZH-ICV-Prox-Mid OM2 w/ 3.0 x 23 mm Promus Stent 03/05/2010 QWU-ATS-HJH-OM2 w/ Taxus Stent 04/2006 CABG x 3 SVG to D1, SVG-OM & SVG-RCA SVT (supraventricular tachycardia) (Chronic) I47.1 HLD (hyperlipidemia) (Chronic) E78.5 Anemia D64.9 DDD (degenerative disc disease), lumbar M51.36 History of TIA (transient ischemic attack) Z86.73 Hypothyroidism E03.9 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 Type 2 diabetes mellitus without complications E11.9 Allergies No Known Allergies Allergy (Verified 10/22/19 10:59) Home Medications: Ambulatory Orders Medication Instructions Recorded Nitroglycerin (INPATIENT USE) 0.4 mg SUBLINGUAL Q5M PRN 12/21/13 [Nitrostat] ergocalciferol (vitamin D2) 1,250 50,000 unit PO QMONTH 11/18/17 mcg (50,000 unit) capsule Aspirin [Aspirin, Baby] 81 mg PO DAILY@0800 07/30/18 isosorbide mononitrate 30 mg 30 mg PO QAM #90 tab 11/03/18 tablet,extended release 24 hr metoprolol succinate 50 mg 50 mg PO DAILY #90 tab 11/17/18 tablet,extended release 24 hr Glipizide/Metformin HCl 2 tab PO BID 02/01/19 [Glipizide-Metformin 2.5-250 mg] Levothyroxine [Synthroid] 137 mcg PO DAILY 02/01/19 atorvastatin 40 mg tablet 40 mg PO QHS 30 Days #30 tab 03/12/19 furosemide 40 mg tablet 40 mg PO DAILY #90 tab 03/12/19 Baclofen 10 mg PO QHS 10/22/19 Clopidogrel Bisulfate [Plavix] 75 mg PO DAILY 10/22/19 Diclofenac Sodium 25 mg PO BID 10/22/19 Gabapentin [Neurontin] 100 mg PO QHS 10/22/19 Insulin Glargine,Hum.rec.anlog 35 unit SUBCUT DAILY 10/22/19 [Toujeo Max Solostar] Iron Polysaccharide Complex 150 mg PO DAILYCM 10/22/19 [Ferrex 150] Losartan Potassium [Cozaar] 100 mg PO DAILY 10/22/19 Potassium Chloride 40 meq PO BID 10/22/19 Prednisone 10 mg PO DAILY 10/22/19 Surgical History: Surgical History (Last Updated 10/23/19 @ 07:30 by Hermilo Elizabeth MD) History of coronary artery stent placement (Chronic) Onset Date: 02/03/19 Z95.5 ZED-EGL-XHN-D1 w/ 2.5 x 16 mm Promus Synergy Stent 02/03/19 NQK-PNT-Ghgs-Mid OM1 w/ 2.25 x 12 mm Promus Premier 12/30/2013 PWY-OCI-LNR-Prox-Mid OM2 w/ 3.0 x 23 mm Promus Stent 03/05/2010 XWM-QSO-JNL-OM2 w/ Taxus Stent 04/2006 H/O coronary artery bypass surgery (Chronic) Onset Date: 09/08/92 Z95.1 CABG x 3 SVG to D1, SVG-OM & SVG-RCA History bilateral cataract surgery History of hemorrhoidectomy Z98.890 History of laparoscopic cholecystectomy Z90.49 Surgical History: angioplasty, appendectomy, cholecystectomy, coronary bypass surgery, hysterectomy, - - Appendectomy, cholecystectomy, CABG x 3, PCI x 3, coronary artery stenting, hysterectomy. Psychiatric History: No pertinent psych hx [employer] History: No pertinent [employer] history Lives: Alone Smoking Status: Former smoker Tobacco Use: Non-smoker Alcohol: None Drugs: None - *Family History Maternal Family History: Family History (Last Reviewed 10/22/19 @ 18:02 by Ainsley Taylor DO) Mother Colon cancer Mother Heart disease History Items: Heart Disease Paternal Family History: Family History (Last Reviewed 10/22/19 @ 18:02 by Ainsley Taylor DO) Mother Colon cancer Mother Heart disease History Items: - - No marked paternal history of HD, CA, DM. The patient's father was killed in World War II. Review of Systems Constitutional: Denies: Anorexia Eyes: Denies: Blurred vision Cardiovascular: Denies: Chest Pain Gastrointestinal: Reports: Melena. Denies: Abdominal Pain, Nausea, Vomiting Genitourinary: Denies: Dysuria Musculoskeletal: Reports: Back Pain, Leg Pain Skin: Denies: Rash Psychiatric: Denies: Depression Hematologic/ Lymphatic: Denies: Easy Bleeding Patient Problems: Active and Suspected Problems (Last Updated 10/23/19 @ 07:34 by Hermilo Elizabeth MD) UGI bleed (Acute) Acute blood loss anemia (Acute) Reactive arthritis (Suspected) - Physical Exam Vitals/I&O's: Vital Signs Temp Pulse Resp BP Pulse Ox 98 F 84 16 157/80 H 98 10/23/19 06:23 10/23/19 06:23 10/23/19 06:23 10/23/19 06:23 10/23/19 06:23 Oxygen Delivery Method Room Air Weight: 157 lb 1.6 oz Body Mass Index (BMI) 26.9 Finger Stick Blood Glucose 174 Intake and Output for Last 24 Hours 10/21/19 10/22/19 10/23/19 23:59 23:59 23:59 Intake Total 1085 / 1085 895.33 / 895.33 Output Total 300 / 300 Balance 1085 / 1085 595.33 / 595.33 General: Alert, Oriented x3, Cooperative, No apparent distress HEENT: Atraumatic Lungs: Normal air movement Cardiovascular: Regular rate Abdomen: Soft, Non Tender - no PS, Non-Distended Extremities: No clubbing, No cyanosis, No edema Neurological: Cranial nerves II-XII grossly intact Psych/Mental Status: Restless Laboratory Results 10/22/19 02:40: WBC Cancelled, Corrected WBC Cancelled, RBC Cancelled, Hgb Cancelled, Hct Cancelled, MCV Cancelled, MCH Cancelled, MCHC Cancelled, RDW Std Deviation Cancelled, RDW Coeff of Miko Cancelled, Plt Count Cancelled, MPV Cancelled, Diff Path Review Cancelled 10/22/19 11:20: WBC 21.3 H, RBC 2.82 L, Hgb 7.8 L, Hct 23.7 L, MCV 84.0, MCH 27.7, MCHC 32.9, RDW Std Deviation 47.0 H, RDW Coeff of Miko 15.5 H, Plt Count 342, MPV 11.8, Immature Gran % (Auto) 1.800 H, Neut % (Auto) 74.1 H, Lymph % (Auto) 17.0 L, [place] % (Auto) 6.7, Eos % (Auto) 0.2, Baso % (Auto) 0.2, Absolute Neuts (auto) 15.8 H, Absolute Lymphs (auto) 3.63, Nucleated RBC % 0.1 10/22/19 11:20: Sodium 141, Potassium 3.5, Chloride 109 H, Carbon Dioxide 22.0, Anion Gap 10, BUN 69 H, Creatinine 1.21 H, Estim Creat Clear Calc 30.95, Est GFR (MDRD) Af Amer 55 L, Est GFR (MDRD) Non-Af 45 L, BUN/Creatinine Ratio 57.0 H, Glucose 209 H, Calcium 9.5 10/22/19 11:20: Magnesium 2.0 10/22/19 11:20: Hemoglobin A1c 10.8 H 10/22/19 16:55: Blood Type A POSITIVE, Antibody Screen NEGATIVE, Crossmatch See Detail 10/22/19 16:55: Crossmatch See Detail 10/22/19 17:08: POC Glucose 174 H 10/22/19 18:03: Hgb 6.8 L, Hct 21.2 L 10/22/19 20:05: Urine Color Yellow, Urine Clarity Sl. Cloudy, Urine pH 5.0, Ur Specific [place] 1.015, Urine Protein Negative, Urine Glucose (UA) 250 H, Urine Ketones Negative, Urine Occult Blood Negative, Urine Nitrite Negative, Urine Bilirubin Negative, Urine Urobilinogen Normal, Ur Leukocyte Esterase Negative, Urine RBC 0 SEEN, Urine WBC 0 SEEN, Ur Squamous Epith Cells 0-5 SEEN, Urine Bacteria 0 SEEN, Urine Mucus 0 SEEN 10/22/19 21:24: POC Glucose 216 H 10/23/19 02:40: WBC 14.5 H, RBC 2.90 L, Hgb 8.3 L, Hct 26.6 L, MCV 91.7 D, MCH 28.6, MCHC 31.2 L, RDW Std Deviation 49.4 H, RDW Coeff of Miko 14.9 H, Plt Count 221, MPV 11.9 10/23/19 06:29: POC Glucose 114 H 10/23/19 06:40: Sodium Pending, Potassium Pending, Chloride Pending, Carbon Dioxide Pending, Anion Gap Pending, BUN Pending, Creatinine Pending, Est GFR (MDRD) Af Amer Pending, Est GFR (MDRD) Non-Af Pending, BUN/Creatinine Ratio Pending, Glucose Pending, Calcium Pending, Phosphorus Pending, Magnesium Pending, Total Bilirubin Pending, AST Pending, ALT Pending, Alkaline Phosphatase Pending, Total Protein Pending, Albumin Pending Current Medications Acetaminophen (Tylenol) 650 mg PO Q6H PRN PRN PRN Reason: Pain Score 1-3/Temp > 100.7 F Last Admin: 10/22/19 22:26 Dose: 650 mg Documented by: Al Hydroxide/Mg Hydroxide (Mylanta Ii) 30 ml PO Q6H PRN PRN PRN Reason: Gastric Burning Aspirin (Aspirin, Baby) 81 mg PO DAILY@0800 [facility] Atorvastatin Calcium (Lipitor) 40 mg PO QHS [facility] Last Admin: 10/22/19 21:27 Dose: 40 mg Documented by: Baclofen (Lioresal) 10 mg PO QHS [facility] Last Admin: 10/22/19 21:27 Dose: 10 mg Documented by: Dextrose (D50w Syringe) 0 gm IV X1 PRN; Protocol PRN Reason: Hypoglycemia Ergocalciferol (Vitamin D) 50,000 unit PO QWEEK [facility] Gabapentin (Neurontin) 100 mg PO QHS [facility] Last Admin: 10/22/19 21:27 Dose: 100 mg Documented by: Glucagon () 1 mg IM .X1 PRN PRN Reason: Hypoglycemia Sodium Chloride () 500 mls @ 999 mls/hr IV .Q31M ONE Last Infusion: 10/22/19 12:14 Dose: Infused Documented by: Potassium Chloride/Sodium Chloride () 1,000 mls @ 100 mls/hr IV .Q10H [facility] Last Infusion: 10/23/19 01:18 Dose: 100 mls/hr Documented by: Pantoprazole Sodium 80 mg/ (Sodium Chloride) 100 mls @ 10 mls/hr CONT INF Q10H [facility] Last Admin: 10/23/19 03:52 Dose: 10 mls/hr Documented by: Insulin Human Lispro (Humalog Kwikpen (Bkc)) 0 unit SC ACHS [facility]; Protocol Last Admin: 10/23/19 06:30 Dose: Not Given Documented by: Isosorbide Mononitrate (Imdur) 30 mg PO QAM [facility] Levothyroxine Sodium (Synthroid) 137 mcg PO DAILY@0600 [facility] Last Admin: 10/23/19 06:31 Dose: 137 mcg Documented by: Losartan Potassium (Cozaar) 100 mg PO DAILY [facility] Magnesium Hydroxide (Milk Of Magnesia) 30 ml PO DAILY PRN PRN PRN Reason: Constipation Melatonin (Melatonin) 3 mg PO QHS PRN PRN PRN Reason: INSOMNIA Metoprolol Succinate (Toprol Xl (Beta Antwon)) 50 mg PO DAILY [facility] Morphine Sulfate () 1 - 2 mg IV Q3H PRN PRN PRN Reason: Pain Score 6-10/10 Nitroglycerin (Nitrostat) 0.4 mg SUBLINGUAL Q5M PRN PRN Reason: CHEST Ondansetron HCl (Zofran) 4 mg IV Q8H PRN PRN PRN Reason: NAUSEA/VOMITING Sodium Chloride () 10 - 40 ml IV UD PRN PRN Reason: SALINE FLUSH Last Admin: 10/23/19 01:13 Dose: 20 ml Documented by: Assessment/Plan All Active Problems (Last Updated 10/23/19 @ 07:34 by Hermilo Elizabeth MD) UGI bleed (Acute) Acute blood loss anemia (Acute) 84-year-old female with anemia, melena 1. Patient did receive 2 packed red blood cells current hemoglobin is 8.3 she does have additional packed red blood cells on hold 2. Patient is on Protonix 40 mg p.o. IV, plavix is being held, asa continued. 3. We will continue to monitor hemoglobin, patient states she still had some black stool this morning but it also had some green. EGD planned for Friday. Cherelle Rodriguez M.D. Pager: [phone] [facility] [address] [place] [address], [facility], [address] [place] [address] Office: [phone] Code Visit Inpatient E&M: 66179 Init Hosp L2
[2019-10-23 07:56] LABS: AST(SGOT) 9 U/L (15-37); Alanine Aminotransfer ALT/SGPT 21 U/L (13-56); Albumin, Serum 2.7 g/dL (3.2-5.0); Alkaline Phosphatase 49 U/L (45-117); Anion Gap 7 (5-15); BUN 32 mg/dL (7-18); BUN/Creat Ratio 37.6 RATIO (10-20); Calcium,Total 8.5 mg/dL (8.5-10.1); Chloride 114 mmol/L (98-107); Creatinine, Serum 0.85 mg/dL (0.55-1.02); EST Glomerular Filtration Rate 68 mL/min (>60); Est Glom Filt Rate - Afr Amer 82 mL/min (>60); Estimated Creatinine Clearance 44.06 ml/min; Globulin 2.6 g/dL (2.2-4.2); Glucose 118 mg/dL (74-106); Phosphorus 2.6 mg/dL (2.5-4.9); Potassium 3.9 mmol/L (3.5-5.1); Protein, Total 5.3 g/dL (6.4-8.2); Sodium Level 143 mmol/L (136-145)
[2019-10-23] MEDS: Isosorbide Mononitrate 30 MG Tablet PO (08:45)
[2019-10-23] MEDS: Losartan Potassium 100 MG Tablet PO (08:45)
[2019-10-23] MEDS: Aspirin 81 MG TAB.CHEW PO (08:45)
[2019-10-23] MEDS: Metoprolol(XL)Succ 50 MG Tablet PO (08:45)
[2019-10-23] MEDS: Acetaminophen 325 MG Tablet 650 MG PO (08:51)
--- NOTE | 2019-10-23 08:55 | PN_ITS ---
Patient Problems: Active and Suspected Problems (Last Updated 10/23/19 @ 07:34 by Hermilo Elizabeth MD) UGI bleed (Acute) Acute blood loss anemia (Acute) Reactive arthritis (Suspected) Subjective: Chief complaint: Follow-up after admission for acute on chronic anemia and presumed upper GI bleed. Patient seen and examined. No acute events overnight. She complained of back pain and left knee pain for which she received steroid injections this past Friday. She denied any more dizziness or lightheadedness. She had no bowel movement since admission. Denied abdominal pain, nausea or vomiting. Denied chest pain or shortness of breath. Her vital signs are stable. - Physical Exam Vitals/I&O's: Vital Signs Temp Pulse Resp BP Pulse Ox 97.8 F 72 18 157/72 H 96 10/23/19 08:33 10/23/19 08:45 10/23/19 08:33 10/23/19 08:33 10/23/19 08:33 Oxygen Delivery Method Room Air Weight: 157 lb 1.6 oz Body Mass Index (BMI) 26.9 Finger Stick Blood Glucose 174 Intake and Output for Last 24 Hours 10/21/19 10/22/19 10/23/19 23:59 23:59 23:59 Intake Total 1085 / 1085 1653.66 / 1653.66 Output Total 300 / 300 Balance 1085 / 1085 1353.66 / 1353.66 General: Alert, Oriented x3, Cooperative, No apparent distress HEENT: Atraumatic, PERRLA, EOMI, Normocephalic Oral: Moist Mucosa, No Gingival or Mucosal Lesions/ Ulcerations Neck: Supple, No JVD, Negative Carotid Bruits, Trachea Midline, Thyroid Normal Size and Texture Lungs: Clear to auscultation, Normal air movement, No rhonchi, No wheeze, No rales, Diminished Cardiovascular: Regular rate, Regular Rhythm, Normal S1, Normal S2, PMI Normal Abdomen: Bowel Sounds Present, Soft, Non Tender, Non-Distended, No Hepato- splenomegaly Extremities: No clubbing, No cyanosis, Edema Skin: No rashes, No breakdown Lymphatic: No Cervical, Supraclavicular, or Inguinal Adenopathy Neurological: Cranial nerves II-XII grossly intact, Motor Exam 5/5 strength throughout Psych/Mental Status: Normal Affect, Appropriate, Alert and oriented to time, place, person, mood and affect Laboratory Results 10/22/19 02:40: WBC Cancelled, Corrected WBC Cancelled, RBC Cancelled, Hgb Cance lled, Hct Cancelled, MCV Cancelled, MCH Cancelled, MCHC Cancelled, RDW Std Deviation Cancelled, RDW Coeff of Miko Cancelled, Plt Count Cancelled, MPV Cancelled, Diff Path Review Cancelled 10/22/19 11:20: WBC 21.3 H, RBC 2.82 L, Hgb 7.8 L, Hct 23.7 L, MCV 84.0, MCH 27.7, MCHC 32.9, RDW Std Deviation 47.0 H, RDW Coeff of Miko 15.5 H, Plt Count 342, MPV 11.8, Immature Gran % (Auto) 1.800 H, Neut % (Auto) 74.1 H, Lymph % (Auto) 17.0 L, [place] % (Auto) 6.7, Eos % (Auto) 0.2, Baso % (Auto) 0.2, Absolute Neuts (auto) 15.8 H, Absolute Lymphs (auto) 3.63, Nucleated RBC % 0.1 10/22/19 11:20: Sodium 141, Potassium 3.5, Chloride 109 H, Carbon Dioxide 22.0, Anion Gap 10, BUN 69 H, Creatinine 1.21 H, Estim Creat Clear Calc 30.95, Est GFR (MDRD) Af Amer 55 L, Est GFR (MDRD) Non-Af 45 L, BUN/Creatinine Ratio 57.0 H, Glucose 209 H, Calcium 9.5 10/22/19 11:20: Magnesium 2.0 10/22/19 11:20: Hemoglobin A1c 10.8 H 10/22/19 16:55: Blood Type A POSITIVE, Antibody Screen NEGATIVE, Crossmatch See Detail 10/22/19 16:55: Crossmatch See Detail 10/22/19 17:08: POC Glucose 174 H 10/22/19 18:03: Hgb 6.8 L, Hct 21.2 L 10/22/19 20:05: Urine Color Yellow, Urine Clarity Sl. Cloudy, Urine pH 5.0, Ur Specific [place] 1.015, Urine Protein Negative, Urine Glucose (UA) 250 H, Urine Ketones Negative, Urine Occult Blood Negative, Urine Nitrite Negative, Urine Bilirubin Negative, Urine Urobilinogen Normal, Ur Leukocyte Esterase Negative, Urine RBC 0 SEEN, Urine WBC 0 SEEN, Ur Squamous Epith Cells 0-5 SEEN, Urine Bacteria 0 SEEN, Urine Mucus 0 SEEN 10/22/19 21:24: POC Glucose 216 H 10/23/19 02:40: WBC 14.5 H, RBC 2.90 L, Hgb 8.3 L, Hct 26.6 L, MCV 91.7 D, MCH 28.6, MCHC 31.2 L, RDW Std Deviation 49.4 H, RDW Coeff of Miko 14.9 H, Plt Count 221, MPV 11.9 10/23/19 06:29: POC Glucose 114 H 10/23/19 06:40: Sodium 143, Potassium 3.9, Chloride 114 H, Carbon Dioxide 22.0, Anion Gap 7, BUN 32 H, Creatinine 0.85, Estim Creat Clear Calc 44.06, Est GFR (MDRD) Af Amer 82, Est GFR (MDRD) Non-Af 68, BUN/Creatinine Ratio 37.6 H, Glucose 118 H, Calcium 8.5, Phosphorus 2.6, Magnesium 2.0, Total Bilirubin 1.40 H, AST 9 L, ALT 21, Alkaline Phosphatase 49, Total Protein 5.3 L, Albumin 2.7 L, Globulin 2.6, Albumin/Globulin Ratio 1.0 Current Medications Acetaminophen (Tylenol) 650 mg PO Q6H PRN PRN PRN Reason: Pain Score 1-3/Temp > 100.7 F Last Admin: 10/23/19 08:51 Dose: 650 mg Documented by: Al Hydroxide/Mg Hydroxide (Mylanta Ii) 30 ml PO Q6H PRN PRN PRN Reason: Gastric Burning Aspirin (Aspirin, Baby) 81 mg PO DAILY@0800 [facility] Last Admin: 10/23/19 08:45 Dose: 81 mg Documented by: Atorvastatin Calcium (Lipitor) 40 mg PO QHS [facility] Last Admin: 10/22/19 21:27 Dose: 40 mg Documented by: Baclofen (Lioresal) 10 mg PO QHS [facility] Last Admin: 10/22/19 21:27 Dose: 10 mg Documented by: Dextrose (D50w Syringe) 0 gm IV X1 PRN; Protocol PRN Reason: Hypoglycemia Ergocalciferol (Vitamin D) 50,000 unit PO QWEEK [facility] Gabapentin (Neurontin) 100 mg PO QHS [facility] Last Admin: 10/22/19 21:27 Dose: 100 mg Documented by: Glucagon () 1 mg IM .X1 PRN PRN Reason: Hypoglycemia Sodium Chloride () 500 mls @ 999 mls/hr IV .Q31M ONE Last Infusion: 10/22/19 12:14 Dose: Infused Documented by: Pantoprazole Sodium 80 mg/ (Sodium Chloride) 100 mls @ 10 mls/hr CONT INF Q10H [facility] Last Admin: 10/23/19 03:52 Dose: 10 mls/hr Documented by: Insulin Human Lispro (Humalog Kwikpen (Bkc)) 0 unit SC ACHS [facility]; Protocol Last Admin: 10/23/19 06:30 Dose: Not Given Documented by: Isosorbide Mononitrate (Imdur) 30 mg PO QAM [facility] Last Admin: 10/23/19 08:45 Dose: 30 mg Documented by: Levothyroxine Sodium (Synthroid) 137 mcg PO DAILY@0600 [facility] Last Admin: 10/23/19 06:31 Dose: 137 mcg Documented by: Losartan Potassium (Cozaar) 100 mg PO DAILY [facility] Last Admin: 10/23/19 08:45 Dose: 100 mg Documented by: Magnesium Hydroxide (Milk Of Magnesia) 30 ml PO DAILY PRN PRN PRN Reason: Constipation Melatonin (Melatonin) 3 mg PO QHS PRN PRN PRN Reason: INSOMNIA Metoprolol Succinate (Toprol Xl (Beta Antwon)) 50 mg PO DAILY [facility] Last Admin: 10/23/19 08:45 Dose: 50 mg Documented by: Morphine Sulfate () 1 - 2 mg IV Q3H PRN PRN PRN Reason: Pain Score 6-10/10 Nitroglycerin (Nitrostat) 0.4 mg SUBLINGUAL Q5M PRN PRN Reason: CHEST Ondansetron HCl (Zofran) 4 mg IV Q8H PRN PRN PRN Reason: NAUSEA/VOMITING Sodium Chloride () 10 - 40 ml IV UD PRN PRN Reason: SALINE FLUSH Last Admin: 10/23/19 08:46 Dose: 10 ml Documented by: Medical Necessity - Tobacco Use Smoking Status: Former smoker Assessment/Plan All Active Problems (Last Updated 10/23/19 @ 07:34 by Hermilo Elizabeth MD) UGI bleed (Acute) Acute blood loss anemia (Acute) This is an 84 years old female patient presented to the emergency room because of dark stools and lightheadedness and she was found to have acute on chronic anemia attributed to probable upper GI bleed. #1 acute on chronic anemia: Presumed to be due to GI bleed. On admission, hemoglobin was 6.8 g/dL. Patient received 2 unit of packed RBCs, today's hemoglobin is 9.3 compensated. Her platelet count, pro time and INR are normal. She had iron studies back on Jan, 2019 that revealed a serum iron of 24 ug/dl, iron saturation was 8.3% which is low, ferritin was 57 which is normal. Plan: Monitor H&H later today, repeat CBC tomorrow morning, transfuse if hemoglobin drops below 8 g/dL, will start iron supplement after endoscopy. #2 probable upper GI bleed: Patient is on aspirin, Plavix and this past Friday, she received 5 injections of steroids. She is on IV Protonix drip. General surgery consulted, plan for endoscopy Friday morning. #3 CAD status post CABG and stents: Stable, no acute issues. Denies any chest pain. Continue statins, nitrate, losartan and metoprolol. #4 type 2 diabetes mellitus: Uncontrolled. At this time, blood sugar is in the range of 100-200. Hemoglobin A1c was 10.8%. She is on sliding scale only but she has been on the on clear liquids. At home, she has been on glipizide, metformin and glargine insulin which are on hold at this time because she is on clear liquids. #5 chronic diastolic CHF: Clinically stable, compensated. Continue aspirin, nitrate, losartan and metoprolol. Will discontinue IV fluids. #6 hypertension: Blood pressure stable, continue losartan and metoprolol, nitrate. #7 hypothyroidism: Continue levothyroxine. #8 fibromyalgia/joint pains: Continue Tylenol PRN, baclofen, gabapentin and morphine PRN. #9 DVT prophylaxis: SCDs. This note was generated with Intelaation software. It may contain incorrect words, spelling, and punctuation that were not noted in checking the note before signing. Code Visit Inpatient E&M: 35230 Subs Hosp L2
[2019-10-23 09:36] LABS: Hematocrit 27.9 % (37-47); Hemoglobin 9.3 g/dL (12.0-15.0)
[2019-10-23 09:46] LABS: Prothrombin Time (Protime)PT. 13.1 SECONDS (11.7-14.9)
[2019-10-23] MEDS: Insulin Lispro 100 UNIT/ML INSULN.PEN SC ×3 (12:48→21:49)
[2019-10-23 13:01] LABS: Bedside Glucose 176 mg/dL (70-110)
--- NOTE | 2019-10-23 14:30 | CM.UR ---
RN CM Assessment Introduced role of RN CM to patient. Patient is alert and able to participate in RN CM Assessment. Care providers, pharmacy, and demographics verified. Daughter, Michelle, at bedside. Presentation: bilateral upper and lower extremity numbness Admit Dx: Upper GIB w/anemia Re-Admit: no Barriers/Issues: none PCP: Zane Chang Preferred [facility]acy[facility] Insurance: [facility] Rx Benefit: yes LNOK: Michelle Bright LW/HPOA: States has. HDPOA is Michelle Bright, Faheem. Living Arrangements: Lives alone in apt. No steps to enter. States that apt building owners are supposed to be changing the tubs into walk in showers. ADL?s: Independent Transportation: self DME: walker, cane, grab bars HHC: None SNF: None Goal: return home DC PLAN: home, NANCY Gomez RN, CCM.
[2019-10-23 16:06] LABS: Bedside Glucose 176 mg/dL (70-110)
[2019-10-23 16:55] LABS: Hematocrit 24.2 % (37-47)
[2019-10-23] MEDS: Atorvastatin Calcium 40 MG Tablet PO (21:49)
[2019-10-23] MEDS: Gabapentin 100 MG Capsule PO (21:49)
[2019-10-23] MEDS: Baclofen 10 MG Tablet PO (21:49)
[2019-10-23 22:15] LABS: Bedside Glucose 197 mg/dL (70-110)
[2019-10-24] VITALS (8 sets, daily range): BP systolic 119–157; BP diastolic 57–77; PULSE 71–99; RESP 18; TEMP 36.7–37.2; O2SAT 96–99
[2019-10-24] MEDS: Acetaminophen 325 MG Tablet 650 MG PO (04:49)
[2019-10-24] MEDS: Levothyroxine 137 MCG Tablet PO (04:52)
[2019-10-24 06:46] LABS: Absolute Lymphocyte Count 2.59 X10^3/uL (0.83-4.51); Absolute Neutrophil Count 7.6 X10^3/uL (2.0-7.7); Basophil# 0.03 X10^3/uL; Basophil% 0.3 % (0-1); Eosinophil# 0.26 X10^3/uL; Eosinophils% 2.2 % (0-5); Hemoglobin 8.5 g/dL (12.0-15.0); Lymphocyte # 2.59 X10^3/ul (4.0); Lymphocyte % 22.4 % (19-41); Mean Corp Hgb Conc 32.7 g/dL (32-36); Mean Corpuscular Hgb 27.8 pg (27.0-32.0); Mean Platelet Vol. 11.5 fl (6.2-12.0); Monocyte# 0.92 X10^3/uL; NRBC Flagged by Analyzer 0.2 % (0-5); Neutrophil # 7.57 X10^3/uL (2.7-7.7); Neutrophil % 65.5 % (47-70); Platelet Count 263 K/mm3 (150-450); RBC Distribution Width CV 14.9 % (11.6-14.6); Red Blood Count 3.06 M/mm3 (4.2-5.4); White Blood Count 11.6 K/mm3 (4.4-11.0)
[2019-10-24] MEDS: Insulin Lispro 100 UNIT/ML INSULN.PEN SC ×4 (06:51→21:31)
[2019-10-24 07:25] LABS: Bedside Glucose 166 mg/dL (70-110)
--- NOTE | 2019-10-24 08:35 | PCM.PROGNOTE ---
Patient Problems: Active and Suspected Problems (Last Updated 10/23/19 @ 07:34 by Hermilo Elizabeth MD) UGI bleed (Acute) Acute blood loss anemia (Acute) Subjective: Chief complaint: Follow-up after admission for acute on chronic anemia and presumed upper GI bleed. Patient seen and examined. No acute events overnight. Today, she denies any complaints. Denies dizziness or lightheadedness. Denied abdominal pain, nausea or vomiting. She mentioned that she had no bowel movements since she came in. She kept asking me same question as yesterday by saying I do not know what is going on. I tried to explain to her what is going on and what is the plan multiple times but she kept asking same question. Her vital signs are stable. - Physical Exam Vitals/I&O's: Vital Signs Temp Pulse Resp BP Pulse Ox 98.2 F 79 18 149/61 H 96 10/24/19 02:51 10/24/19 05:31 10/24/19 02:51 10/24/19 02:51 10/24/19 02:51 Oxygen Delivery Method Room Air Weight: 157 lb 1.6 oz Body Mass Index (BMI) 26.9 Finger Stick Blood Glucose 174 Intake and Output for Last 24 Hours 10/22/19 10/23/19 10/24/19 23:59 23:59 23:59 Intake Total 1085 / 1085 2603.66 / 2603.66 340 / 340 Output Total 2275 / 2275 400 / 400 Balance 1085 / 1085 328.66 / 328.66 -60 / -60 General: Alert, Cooperative, No apparent distress, Well nourished HEENT: Atraumatic, PERRLA, EOMI, Normocephalic Oral: Moist Mucosa, No Gingival or Mucosal Lesions/ Ulcerations Neck: Supple, No JVD, Negative Carotid Bruits, Trachea Midline, Thyroid Normal Size and Texture Lungs: Clear to auscultation, Normal air movement, No rhonchi, No wheeze, No rales, Diminished Cardiovascular: Regular rate, Regular Rhythm, Normal S1, Normal S2, PMI Normal Abdomen: Bowel Sounds Present, Soft, Non Tender, Non-Distended, No Hepato-splenomegaly Extremities: No clubbing, No cyanosis, Edema - Trace edema. Skin: No rashes, No breakdown Lymphatic: No Cervical, Supraclavicular, or Inguinal Adenopathy Neurological: Cranial nerves II-XII grossly intact, Neuro grossly intact Psych/Mental Status: Normal Affect, Appropriate Laboratory Results 10/23/19 08:40: Hgb 9.3 L, Hct 27.9 L 10/23/19 08:40: PT 13.1, INR 1.0 10/23/19 12:45: POC Glucose 176 H 10/23/19 15:56: POC Glucose 176 H 10/23/19 16:30: Hgb 8.0 L, Hct 24.2 L 10/23/19 21:48: POC Glucose 197 H 10/24/19 05:39: WBC 11.6 H, RBC 3.06 L, Hgb 8.5 L, Hct 26.0 L, MCV 85.0 D, MCH 27.8, MCHC 32.7, RDW Std Deviation 46.0 H, RDW Coeff of Miko 14.9 H, Plt Count 263, MPV 11.5, Immature Gran % (Auto) 1.600 H, Neut % (Auto) 65.5, Lymph % (Auto) 22.4, [place] % (Auto) 8.0, Eos % (Auto) 2.2, Baso % (Auto) 0.3, Absolute Neuts (auto) 7.6, Absolute Lymphs (auto) 2.59, Nucleated RBC % 0.2 10/24/19 06:49: POC Glucose 166 H Current Medications Acetaminophen (Tylenol) 650 mg PO Q6H PRN PRN PRN Reason: Pain Score 1-3/Temp > 100.7 F Last Admin: 10/24/19 04:49 Dose: 650 mg Documented by: Al Hydroxide/Mg Hydroxide (Mylanta Ii) 30 ml PO Q6H PRN PRN PRN Reason: Gastric Burning Aspirin (Aspirin, Baby) 81 mg PO DAILY@0800 [facility] Last Admin: 10/23/19 08:45 Dose: 81 mg Documented by: Atorvastatin Calcium (Lipitor) 40 mg PO QHS [facility] Last Admin: 10/23/19 21:49 Dose: 40 mg Documented by: Baclofen (Lioresal) 10 mg PO QHS [facility] Last Admin: 10/23/19 21:49 Dose: 10 mg Documented by: Dextrose (D50w Syringe) 0 gm IV X1 PRN; Protocol PRN Reason: Hypoglycemia Ergocalciferol (Vitamin D) 50,000 unit PO QWEEK [facility] Gabapentin (Neurontin) 100 mg PO QHS [facility] Last Admin: 10/23/19 21:49 Dose: 100 mg Documented by: Glucagon () 1 mg IM .X1 PRN PRN Reason: Hypoglycemia Sodium Chloride () 500 mls @ 999 mls/hr IV .Q31M ONE Last Infusion: 10/22/19 12:14 Dose: Infused Documented by: Pantoprazole Sodium 80 mg/ (Sodium Chloride) 100 mls @ 10 mls/hr CONT INF Q10H [facility] Last Admin: 10/24/19 01:44 Dose: 10 mls/hr Documented by: Insulin Human Lispro (Humalog Kwikpen (Bkc)) 0 unit SC ACHS [facility]; Protocol Last Admin: 10/24/19 06:51 Dose: 1 u Documented by: Isosorbide Mononitrate (Imdur) 30 mg PO QAM [facility] Last Admin: 10/23/19 08:45 Dose: 30 mg Documented by: Levothyroxine Sodium (Synthroid) 137 mcg PO DAILY@0600 [facility] Last Admin: 10/24/19 04:52 Dose: 137 mcg Documented by: Losartan Potassium (Cozaar) 100 mg PO DAILY [facility] Last Admin: 10/23/19 08:45 Dose: 100 mg Documented by: Magnesium Hydroxide (Milk Of Magnesia) 30 ml PO DAILY PRN PRN PRN Reason: Constipation Melatonin (Melatonin) 3 mg PO QHS PRN PRN PRN Reason: INSOMNIA Metoprolol Succinate (Toprol Xl (Beta Antwon)) 50 mg PO DAILY [facility] Last Admin: 10/23/19 08:45 Dose: 50 mg Documented by: Morphine Sulfate () 1 - 2 mg IV Q3H PRN PRN PRN Reason: Pain Score 6-10/10 Nitroglycerin (Nitrostat) 0.4 mg SUBLINGUAL Q5M PRN PRN Reason: CHEST Ondansetron HCl (Zofran) 4 mg IV Q8H PRN PRN PRN Reason: NAUSEA/VOMITING Sodium Chloride () 10 - 40 ml IV UD PRN PRN Reason: SALINE FLUSH Last Admin: 10/23/19 08:46 Dose: 10 ml Documented by: Medical Necessity - Tobacco Use Smoking Status: Former smoker Tobacco Use: Non-smoker Assessment/Plan All Active Problems (Last Updated 10/23/19 @ 07:34 by Hermilo Elizabeth MD) UGI bleed (Acute) Acute blood loss anemia (Acute) This is an 84 years old female patient presented to the emergency room because of dark stools and lightheadedness and she was found to have acute on chronic anemia attributed to probable upper GI bleed. #1 acute on chronic anemia: Presumed to be due to GI bleed. On admission, hemoglobin was 6.8 g/dL. Patient received 2 unit of packed RBCs, today's hemoglobin is 8.5 g/dL. Her platelet count, pro time and INR are normal. She had iron studies back on Jan, 2019 that revealed a serum iron of 24 ug/dl, iron saturation was 8.3% which is low, ferritin was 57 which is normal. Plan for endoscopy tomorrow, repeat CBC tomorrow morning. #2 probable upper GI bleed: She is on IV Protonix drip. Plavix held, on aspirin. Patient is on aspirin, Plavix and this past Friday, she received 5 injections of steroids. General surgery consulted, plan for endoscopy tomorrow morning. #3 CAD status post CABG and stents: Stable, no acute issues. Denies any chest pain. Continue statins, nitrate, losartan and metoprolol. #4 type 2 diabetes mellitus: Uncontrolled. Sugar remained stable while she is in the hospital. Hemoglobin A1c was 10.8%. She is on ADA diet and his sugar remained in the range of 100-200. At home, she has been on glipizide, metformin and glargine insulin which are on hold at this time. #5 chronic diastolic CHF: Clinically stable, compensated. Continue aspirin, nitrate, losartan and metoprolol. She is off IV fluids. #6 hypertension: Blood pressure stable, continue losartan and metoprolol, nitrate. #7 hypothyroidism: Continue levothyroxine. #8 fibromyalgia/joint pains: Continue Tylenol PRN, baclofen, gabapentin and morphine PRN. #9 DVT prophylaxis: SCDs. This note was generated with [employer] software. It may contain incorrect words, spelling, and punctuation that were not noted in checking the note before signing. Code Visit Inpatient E&M: 62936 Subs Hosp L2
--- NOTE | 2019-10-24 08:54 | PCM.PN.SRG ---
Patient Problems: Active and Suspected Problems (Last Updated 10/23/19 @ 07:34 by Hermilo Elizabeth MD) UGI bleed (Acute) Acute blood loss anemia (Acute) Subjective: Patient tolerating diet denies any abdominal pain, continues to be on Protonix drip, patient states she is still been having some black stools, hemoglobin has remained stable after getting the 2 units packed red blood cells - Physical Exam Vitals/I&O's: Vital Signs Temp Pulse Resp BP Pulse Ox 98.2 F 79 18 149/61 H 96 10/24/19 02:51 10/24/19 05:31 10/24/19 02:51 10/24/19 02:51 10/24/19 02:51 Oxygen Delivery Method Room Air Weight: 157 lb 1.6 oz Body Mass Index (BMI) 26.9 Finger Stick Blood Glucose 174 Intake and Output for Last 24 Hours 10/22/19 10/23/19 10/24/19 23:59 23:59 23:59 Intake Total 1085 / 1085 2603.66 / 2603.66 340 / 340 Output Total 2275 / 2275 400 / 400 Balance 1085 / 1085 328.66 / 328.66 -60 / -60 General: Alert, Oriented x3, Cooperative, No apparent distress Lungs: Normal air movement Cardiovascular: Regular rate Abdomen: Soft, Non Tender, Non-Distended Laboratory Results 10/23/19 08:40: Hgb 9.3 L, Hct 27.9 L 10/23/19 08:40: PT 13.1, INR 1.0 10/23/19 12:45: POC Glucose 176 H 10/23/19 15:56: POC Glucose 176 H 10/23/19 16:30: Hgb 8.0 L, Hct 24.2 L 10/23/19 21:48: POC Glucose 197 H 10/24/19 05:39: WBC 11.6 H, RBC 3.06 L, Hgb 8.5 L, Hct 26.0 L, MCV 85.0 D, MCH 27.8, MCHC 32.7, RDW Std Deviation 46.0 H, RDW Coeff of Miko 14.9 H, Plt Count 263, MPV 11.5, Immature Gran % (Auto) 1.600 H, Neut % (Auto) 65.5, Lymph % (Auto) 22.4, [place] % (Auto) 8.0, Eos % (Auto) 2.2, Baso % (Auto) 0.3, Absolute Neuts (auto) 7.6, Absolute Lymphs (auto) 2.59, Nucleated RBC % 0.2 10/24/19 06:49: POC Glucose 166 H Current Medications Acetaminophen (Tylenol) 650 mg PO Q6H PRN PRN PRN Reason: Pain Score 1-3/Temp > 100.7 F Last Admin: 10/24/19 04:49 Dose: 650 mg Documented by: Al Hydroxide/Mg Hydroxide (Mylanta Ii) 30 ml PO Q6H PRN PRN PRN Reason: Gastric Burning Aspirin (Aspirin, Baby) 81 mg PO DAILY@0800 [facility] Last Admin: 10/23/19 08:45 Dose: 81 mg Documented by: Atorvastatin Calcium (Lipitor) 40 mg PO QHS [facility] Last Admin: 10/23/19 21:49 Dose: 40 mg Documented by: Baclofen (Lioresal) 10 mg PO QHS [facility] Last Admin: 10/23/19 21:49 Dose: 10 mg Documented by: Dextrose (D50w Syringe) 0 gm IV X1 PRN; Protocol PRN Reason: Hypoglycemia Ergocalciferol (Vitamin D) 50,000 unit PO QWEEK [facility] Gabapentin (Neurontin) 100 mg PO QHS [facility] Last Admin: 10/23/19 21:49 Dose: 100 mg Documented by: Glucagon () 1 mg IM .X1 PRN PRN Reason: Hypoglycemia Sodium Chloride () 500 mls @ 999 mls/hr IV .Q31M ONE Last Infusion: 10/22/19 12:14 Dose: Infused Documented by: Pantoprazole Sodium 80 mg/ (Sodium Chloride) 100 mls @ 10 mls/hr CONT INF Q10H [facility] Last Admin: 10/24/19 01:44 Dose: 10 mls/hr Documented by: Insulin Human Lispro (Humalog [place]pen (Bkc)) 0 unit SC [facility]; Protocol Last Admin: 10/24/19 06:51 Dose: 1 u Documented by: Isosorbide Mononitrate (Imdur) 30 mg PO QAM [facility] Last Admin: 10/23/19 08:45 Dose: 30 mg Documented by: Levothyroxine Sodium (Synthroid) 137 mcg PO DAILY@0600 [facility] Last Admin: 10/24/19 04:52 Dose: 137 mcg Documented by: Losartan Potassium (Cozaar) 100 mg PO DAILY [facility] Last Admin: 10/23/19 08:45 Dose: 100 mg Documented by: Magnesium Hydroxide (Milk Of Magnesia) 30 ml PO DAILY PRN PRN PRN Reason: Constipation Melatonin (Melatonin) 3 mg PO QHS PRN PRN PRN Reason: INSOMNIA Metoprolol Succinate (Toprol Xl (Beta Antwon)) 50 mg PO DAILY [facility] Last Admin: 10/23/19 08:45 Dose: 50 mg Documented by: Morphine Sulfate () 1 - 2 mg IV Q3H PRN PRN PRN Reason: Pain Score 6-10/10 Nitroglycerin (Nitrostat) 0.4 mg SUBLINGUAL Q5M PRN PRN Reason: CHEST Ondansetron HCl (Zofran) 4 mg IV Q8H PRN PRN PRN Reason: NAUSEA/VOMITING Sodium Chloride () 10 - 40 ml IV UD PRN PRN Reason: SALINE FLUSH Last Admin: 10/23/19 08:46 Dose: 10 ml Documented by: Medical Necessity - Tobacco Use Smoking Status: Former smoker Tobacco Use: Non-smoker Assessment/Plan All Active Problems (Last Updated 10/23/19 @ 07:34 by Hermilo Elizabeth MD) UGI bleed (Acute) Acute blood loss anemia (Acute) 84-year-old female with anemia, melena 1. Hemoglobin stable after 2 units packed red blood cells on admit 2. Patient is on Protonix 40 mg p.o. IV, plavix is being held, asa continued. 3. I have discussed the above with the patient. I have offered the patient EGD for evaluation. Scheduled for 8 AM Friday I have explained the risks/benefits of the procedure and described the procedure. I have discussed the risks with the patient, including but not limited to: infection, bleeding, perforation of the GI tract requiring emergency surgery, inability to complete the procedure, injury to any internal organs, complications of anesthesia, etc. - the patient understands and agrees to proceed. I have answered all the patient's questions to the patient's satisfaction and the patient has no further questions. Cherelle Rodriguez M.D. Pager: [phone] [facility] [address] [place] [address], [address] [place] [address] Office: [phone] Code Visit Inpatient E&M: 61557 Subs Hosp L1
[2019-10-24] MEDS: Aspirin 81 MG TAB.CHEW PO (10:15)
[2019-10-24] MEDS: Isosorbide Mononitrate 30 MG Tablet PO (10:15)
[2019-10-24] MEDS: Losartan Potassium 100 MG Tablet PO (10:15)
[2019-10-24] MEDS: Metoprolol(XL)Succ 50 MG Tablet PO (10:15)
[2019-10-24 11:46] LABS: Bedside Glucose 269 mg/dL (70-110)
[2019-10-24 16:55] LABS: Bedside Glucose 303 mg/dL (70-110)
[2019-10-24] MEDS: Atorvastatin Calcium 40 MG Tablet PO (21:30)
[2019-10-24] MEDS: Gabapentin 100 MG Capsule PO (21:30)
[2019-10-24] MEDS: Baclofen 10 MG Tablet PO (21:30)
[2019-10-24 23:01] LABS: Bedside Glucose 223 mg/dL (70-110)
[2019-10-25] VITALS (17 sets, daily range): BP systolic 114–168; BP diastolic 43–73; PULSE 73–89; RESP 16–20; TEMP 36.6–37.1; O2SAT 94–97
[2019-10-25] MEDS: Acetaminophen 325 MG Tablet 650 MG PO ×3 (01:33→23:49)
[2019-10-25 05:10] LABS: Absolute Lymphocyte Count 3.13 X10^3/uL (0.83-4.51); Absolute Neutrophil Count 7.4 X10^3/uL (2.0-7.7); Basophil# 0.02 X10^3/uL; Basophil% 0.2 % (0-1); Eosinophil# 0.32 X10^3/uL; Eosinophils% 2.7 % (0-5); Hematocrit 27.4 % (37-47); Lymphocyte # 3.13 X10^3/ul (4.0); Lymphocyte % 26.1 % (19-41); Mean Corp Hgb Conc 32.8 g/dL (32-36); Mean Corpuscular Hgb 27.9 pg (27.0-32.0); Mean Corpuscular Volume 84.8 fL (81-99); Mean Platelet Vol. 11.2 fl (6.2-12.0); Monocyte# 0.97 X10^3/uL; Monocyte% 8.1 % (0-10); NRBC Flagged by Analyzer 0 % (0-5); Neutrophil # 7.36 X10^3/uL (2.7-7.7); Neutrophil % 61.3 % (47-70); Platelet Count 304 K/mm3 (150-450); RBC Distribution Width CV 14.8 % (11.6-14.6); RBC Distribution Width SD 45.1 fl (35.1-43.9); Red Blood Count 3.23 M/mm3 (4.2-5.4)
[2019-10-25 05:24] LABS: Partial Thromboplast Time 23.4 Seconds (24.1-36.2)
[2019-10-25 05:34] LABS: Thyroid Stim Hormone (TSH) 7.94 uIU/mL (0.358-3.74)
[2019-10-25] MEDS: Insulin Lispro 100 UNIT/ML INSULN.PEN SC ×4 (06:43→21:25)
[2019-10-25 07:41] LABS: Bedside Glucose 184 mg/dL (70-110)
--- NOTE | 2019-10-25 07:52 | PN.SURG_ITS ---
Patient Problems: Active and Suspected Problems (Last Updated 10/23/19 @ 07:34 by Hermilo Elizabeth MD) UGI bleed (Acute) Acute blood loss anemia (Acute) Subjective: Patient denies abdominal pain still states she is having some black stool, hemoglobin has been stable - Physical Exam Vitals/I&O's: Vital Signs Temp Pulse Resp BP Pulse Ox 98.2 F 89 16 168/69 H 97 10/25/19 03:51 10/25/19 06:00 10/25/19 03:51 10/25/19 03:51 10/25/19 03:51 Oxygen Delivery Method Room Air Weight: 157 lb 1.6 oz Body Mass Index (BMI) 26.9 Finger Stick Blood Glucose 174 Intake and Output for Last 24 Hours 10/23/19 10/24/19 10/25/19 23:59 23:59 23:59 Intake Total 2603.66 / 2603.66 540 / 1020 547.33 / 547.33 Output Total 2275 / 2275 400 / 700 1000 / 1000 Balance 328.66 / 328.66 140 / 320 -452.67 / -452.67 General: Alert, Oriented x3, Cooperative, No apparent distress HEENT: Atraumatic Lungs: Normal air movement Cardiovascular: Regular Rhythm Abdomen: Soft, Non Tender, Non-Distended Laboratory Results 10/24/19 11:37: POC Glucose 269 H 10/24/19 16:32: POC Glucose 303 H 10/24/19 21:29: POC Glucose 223 H 10/25/19 04:54: WBC 12.0 H, RBC 3.23 L, Hgb 9.0 L, Hct 27.4 L, MCV 84.8, MCH 27.9, MCHC 32.8, RDW Std Deviation 45.1 H, RDW Coeff of Miko 14.8 H, Plt Count 304, MPV 11.2, Immature Gran % (Auto) 1.600 H, Neut % (Auto) 61.3, Lymph % (Auto) 26.1, [place] % (Auto) 8.1, Eos % (Auto) 2.7, Baso % (Auto) 0.2, Absolute Neuts (auto) 7.4, Absolute Lymphs (auto) 3.13, Nucleated RBC % 0 10/25/19 04:54: APTT 23.4 L 01/27/20 04:54: TSH 7.94 H 10/25/19 06:42: POC Glucose 184 H Current Medications Acetaminophen (Tylenol) 650 mg PO Q6H PRN PRN PRN Reason: Pain Score 1-3/Temp > 100.7 F Last Admin: 10/25/19 01:33 Dose: 650 mg Documented by: Al Hydroxide/Mg Hydroxide (Mylanta Ii) 30 ml PO Q6H PRN PRN PRN Reason: Gastric Burning Aspirin (Aspirin, Baby) 81 mg PO DAILY@0800 [facility] Last Admin: 10/24/19 10:15 Dose: 81 mg Documented by: Atorvastatin Calcium (Lipitor) 40 mg PO QHS [facility] Last Admin: 10/24/19 21:30 Dose: 40 mg Documented by: Baclofen (Lioresal) 10 mg PO QHS [facility] Last Admin: 10/24/19 21:30 Dose: 10 mg Documented by: Dextrose (D50w Syringe) 0 gm IV X1 PRN; Protocol PRN Reason: Hypoglycemia Ergocalciferol (Vitamin D) 50,000 unit PO QWEEK [facility] Gabapentin (Neurontin) 100 mg PO QHS [facility] Last Admin: 10/24/19 21:30 Dose: 100 mg Documented by: Glucagon () 1 mg IM .X1 PRN PRN Reason: Hypoglycemia Sodium Chloride () 500 mls @ 999 mls/hr IV .Q31M ONE Last Infusion: 10/22/19 12:14 Dose: Infused Documented by: Pantoprazole Sodium 80 mg/ (Sodium Chloride) 100 mls @ 10 mls/hr CONT INF Q10H [facility] Last Infusion: 10/25/19 06:44 Dose: 0 mls/hr Documented by: Insulin Human Lispro (Humalog Kwikpen (Bkc)) 0 unit SC ACHS [facility]; Protocol Last Admin: 10/25/19 06:43 Dose: 1 u Documented by: Isosorbide Mononitrate (Imdur) 30 mg PO QAM [facility] Last Admin: 10/24/19 10:15 Dose: 30 mg Documented by: Levothyroxine Sodium (Synthroid) 137 mcg PO DAILY@0600 [facility] Last Admin: 10/25/19 05:44 Dose: Not Given Documented by: Losartan Potassium (Cozaar) 100 mg PO DAILY [facility] Last Admin: 10/24/19 10:15 Dose: 100 mg Documented by: Magnesium Hydroxide (Milk Of Magnesia) 30 ml PO DAILY PRN PRN PRN Reason: Constipation Melatonin (Melatonin) 3 mg PO QHS PRN PRN PRN Reason: INSOMNIA Metoprolol Succinate (Toprol Xl (Beta Antwon)) 50 mg PO DAILY [facility] Last Admin: 10/24/19 10:15 Dose: 50 mg Documented by: Morphine Sulfate () 1 - 2 mg IV Q3H PRN PRN PRN Reason: Pain Score 6-10/10 Nitroglycerin (Nitrostat) 0.4 mg SUBLINGUAL Q5M PRN PRN Reason: CHEST Ondansetron HCl (Zofran) 4 mg IV Q8H PRN PRN PRN Reason: NAUSEA/VOMITING Sodium Chloride () 10 - 40 ml IV UD PRN PRN Reason: SALINE FLUSH Last Admin: 10/23/19 08:46 Dose: 10 ml Documented by: Medical Necessity - Tobacco Use Smoking Status: Former smoker Tobacco Use: Non-smoker Assessment/Plan All Active Problems (Last Updated 10/23/19 @ 07:34 by Hermilo Elizabeth MD) UGI bleed (Acute) Acute blood loss anemia (Acute) 84-year-old female with anemia, melena 1. Hemoglobin stable after 2 units packed red blood cells on admit 2. Continue IV Protonix 3. We will proceed with EGD this morning. Discussed with patient that if there is no obvious cause of the bleeding patient may need to do the bowel prep for colonoscopy tomorrow patient cannot remember the last time she had a colonoscopy. Cherelle Rodriguez M.D. Pager: [phone] [facility] [address] [place] [address], [address] [place] [address] Office: [phone]
[2019-10-25] MEDS: Lactated Ringers 1,000 ML 100 ML IV (08:00)
--- NOTE | 2019-10-25 08:00 | GASB_PTH ---
PATIENT: ENDER ALVES LOC: MS3 U#:[id number] AGE/SX: 84/F ROOM: LA314 RE10/22/[address]: Dr. Catrachito Oden MD : 1935 BED: 1 DIS: 10/26/2019 SPEC #: [id number] RECD: 10/25/19 09:02 STATUS: LENORE MAXINE #: [id number] CRISTOBAL: 10/25/19 08:[address]: Cherelle Rodriguez DEPT: SURGICAL PATHOLOGY RECD BY: Alma Victor ENTERED: 10/25/19 11:54 SP TYPE: Gastric Bx OTHR DR: DO Dr. Catrachito Lacy MD Dr. Tai Chi Kwok, MD Tissues: A - Gastric mucous membrane B - Gastric mucous membrane C - Esophageal mucous membrane Procedures: PAS Fungus (control) Special Stain Group II Special Stain Group I Surgery Specimen Level IV Alcian Blue/PAS (control) HEADER OPERATION: EGD ([facility] [place] PRE-OP DIAGNOSIS: Upper GI bleed TISSUE SUBMITTED: A - Antral biopsy for H. pylori and pathology, B - GE junction biopsy, C - Mid esophageal biopsy, rule out yeast MICROSCOPIC DIAGNOSIS A. Antral biopsy: Mild gastritis. See microscopic description and comment. B. GE junction, biopsy: Fragments of gastroesophageal mucosa with extensive ulceration, fibrinous exudation, acute and chronic inflammation and granulation tissue reaction. Intestinal metaplasia (goblet cell metaplasia) is not identified. Special stain for fungi is negative for organisms; matched control is appropriate. See comment. C. Mid esophagus, biopsy: Fragments of squamous mucosa with acute and chronic inflammation. Special stain for fungi is negative for organisms; matched control is appropriate. SJ:justice 10/26/19 COMMENT A. The results of immunohistochemistry for Helicobacter pylori will be reported separately ([id number]). B. Alcian blue/PAS stain with matched control is used in the evaluation of the specimen. MICROSCOPIC DESCRIPTION Slides are reviewed. A. The specimen shows fragments of gastric mucosa with chronic inflammatory cell infiltrates in the lamina propria consisting of lymphocytes and plasma cells, consistent with mild chronic gastritis. Focal mucosal congestion is also noted. GROSS DESCRIPTION A - Received in fixative is one container labeled with the patient's name and designated antral biopsy. The specimen consists of one irregular fragment of light atkinson soft tissue that measures 0.3 x 0.3 x 0.1 cm. The specimen is totally submitted in one cassette. B - Received in fixative is one container labeled with the patient's name and designated GE junction biopsy. The specimen consists of multiple irregular fragments of light atkinson soft tissue that in aggregate measure 1 x 0.3 x 0.1 cm. The specimen is totally submitted in one cassette. C - Received in fixative is one container labeled with the patient's name and designated mid esophageal biopsy. The specimen consists of two irregular fragments of light atkinson soft tissue that in aggregate measure 0.6 x 0.3 x 0.1 cm. The specimen is totally submitted in one cassette. / SJ:rg 10/25/19 TC:2 CPT: 77655 x3, 54006 x2, 43991
--- NOTE | 2019-10-25 08:00 | IMM_PTH ---
PATIENT: ENDER ALVES LOC: MS3 U#:[id number] AGE/SX: 84/F ROOM: MA314 RE10/22/[address]: Dr. Catrachito Oden MD : 1935 BED: 1 DIS: 10/26/2019 SPEC #: [id number] RECD: 10/25/19 09:32 STATUS: LENORE REQ #: [id number] CRISTOBAL: 10/25/19 08:[address]: Cherelle Rodriguez DEPT: IMMUNOHISTOCHEMISTRY RECD BY: Sirisha Pyle ENTERED: 10/25/19 09:33 SP TYPE: IMMUNO OTHR DR: DO Dr. Catrachito Lacy MD Dr. Tai Chi Kwok, MD Tissues: A - Stomach, NOS Procedures: H Pylori (initial) PHYSICIAN & INSTITUTION [place] [id number] SPECIMEN INFORMATION: Tissue Source: A - Antral biopsy Clinical Info: Upper GI bleed Specimen Number: [id number] CPT code: 96039 METHODOLOGY: Deparaffinized sections of prefer/formalin-fixed tissue or PAP/DQ stained slides are incubated with monoclonal/polyclonal antibodies/oligonucleotide probes. Localization is made via biotin free immunoperoxidase method. Appropriate controls are performed and reacted as expected. Results on target cell population are indicated in the following table: RESULTS: ANTIBODY / CLONE RESULT Block A H Pylori (polyclonal) negative These tests were developed and their performance characteristics determined by [facility]. They may not have been cleared or approved by the U.S. Food and Drug Administration. The FDA has determined that such clearance or approval is not necessary. The above immunohistochemical/dualISH markers are ordered and reviewed by the Pathologist. INTERPRETATION: A. Antral biopsy: Negative for Helicobacter pylori organisms. SJ:justice 10/26/19
--- NOTE | 2019-10-25 08:28 | OP.CCLET_ITS ---
10/25/2019 Brian Degroot MD [address] [place] [address] Re : Upper GI endoscopy procedure for Aimee Noble Dear Dr. Degroot This procedure was performed on Friday, October 25, 2019. My impressions and recommendations are as follows: Impressions : - Z-line irregular, 33 cm from the incisors. Biopsied. - LA Grade C esophagitis. Biopsied. - Small hiatal hernia. - Gastritis. Biopsied. - Normal examined duodenum. - White nummular lesions in esophageal mucosa. Biopsied. Recommendations : - Return patient to [facility] for ongoing care. - Clear liquid diet. - Continue present medications. - Await pathology results. - Use Protonix (pantoprazole) 40 mg PO BID indefinitely. - Use sucralfate tablets 1 gram PO QID for 1 month. My findings are described in the full procedure note, which is enclosed. If I can be of further assistance, please feel free to contact me at Doctor phone number(s): , Work: . Sincerely, MD Cherelle Francis MD 10/25/2019 8:28:10 AM This report has been signed electronically.
--- NOTE | 2019-10-25 08:28 | OP.EGD_ITS ---
Patient Name: Aimee Noble Procedure Date: 10/25/2019 7:55 AM Date of : 1935 Age: 84 Procedure: Upper GI endoscopy Indications: Melena Providers: Cherelle Rodriguez MD Medicines: Monitored Anesthesia Care Patient Profile: This is an 84 year old female. Complications: No immediate complications. Procedure: Pre-Anesthesia Assessment: - Prior to the procedure, a History and Physical was performed, and patient medications and allergies were reviewed. The patient's tolerance of previous anesthesia was also reviewed. The risks and benefits of the procedure and the sedation options and risks were discussed with the patient. All questions were answered, and informed consent was obtained. Prior Anticoagulants: The patient has taken aspirin, last dose was 1 day prior to procedure. ASA Grade Assessment: III - A patient with severe systemic disease. After reviewing the risks and benefits, the patient was deemed in satisfactory condition to undergo the procedure. After obtaining informed consent, the endoscope was passed under direct vision. Throughout the procedure, the patient's blood pressure, pulse, and oxygen saturations were monitored continuously. The gastroscope was introduced through the mouth, and advanced to the second part of duodenum. The upper GI endoscopy was accomplished without difficulty. The patient tolerated the procedure well. Scope In: 8:09:51 AM Scope Out: 8:18:20 AM Total Procedure Duration Time 0 hours 8 minutes 29 seconds Findings: The Z-line was irregular and was found 33 cm from the incisors. Biopsies were taken with a cold forceps for histology. LA Grade C (one or more mucosal breaks continuous between tops of 2 or more mucosal folds, less than 75% circumference) esophagitis with no bleeding was found. Biopsies were taken with a cold forceps for histology. A small hiatal hernia was present. Mild inflammation characterized by erythema was found in the entire examined stomach. Biopsies were taken with a cold forceps for histology. Biopsies were taken with a cold forceps for Helicobacter pylori cultures. The examined duodenum was normal. White nummular lesions were noted in the middle third of the esophagus. Biopsies were taken with a cold forceps for histology. Impression: - Z-line irregular, 33 cm from the incisors. Biopsied. - LA Grade C esophagitis. Biopsied. - Small hiatal hernia. - Gastritis. Biopsied. - Normal examined duodenum. - White nummular lesions in esophageal mucosa. Biopsied. Recommendation: - Return patient to [facility] for ongoing care. - Clear liquid diet. - Continue present medications. - Await pathology results. - Use Protonix (pantoprazole) 40 mg PO BID indefinitely. - Use sucralfate tablets 1 gram PO QID for 1 month. Procedure Code(s): --- Professional --- 53352, Esophagogastroduodenoscopy, flexible, transoral; with biopsy, single or multiple Diagnosis Code(s): --- Professional --- K92.1, Melena (includes Hematochezia) K29.70, Gastritis, unspecified, without bleeding K44.9, Diaphragmatic hernia without obstruction or gangrene K20.9, Esophagitis, unspecified K22.8, Other specified diseases of esophagus CPT copyright 2017 [employer]. All rights reserved. The codes documented in this report are preliminary and upon medical biller/coder review may be revised to meet current compliance requirements. MD Cherelle Francis MD 10/25/2019 8:28:10 AM This report has been signed electronically. Number of Addenda: 0 Note Initiated On: 10/25/2019 7:55 AM
[2019-10-25] MEDS: Metoprolol(XL)Succ 50 MG Tablet PO (09:28)
[2019-10-25] MEDS: Aspirin 81 MG TAB.CHEW PO (09:28)
[2019-10-25] MEDS: Isosorbide Mononitrate 30 MG Tablet PO (09:29)
[2019-10-25] MEDS: Losartan Potassium 100 MG Tablet PO (09:29)
[2019-10-25] MEDS: Sucralfate 1 GM Tablet PO ×3 (10:50→21:19)
[2019-10-25 11:01] LABS: Bedside Glucose 187 mg/dL (70-110)
--- NOTE | 2019-10-25 11:30 | PN_ITS ---
Patient Problems: Active and Suspected Problems (Last Updated 10/23/19 @ 07:34 by Hermilo Elizabeth MD) UGI bleed (Acute) Acute blood loss anemia (Acute) Reason for Visit: Follow-up anemia Subjective: Patient is an 84-year-old lady admitted with symptomatic anemia Objective: GENERAL: cooperative HEENT: Atraumatic; EYES; Anicteric, Normal Conjunctiva NECK; supple, normal thyroid, RESPIRATORY: Diminished to auscultation CARDIOVASCULAR: Regular S1 S2, GI: soft, normoactive bowel sounds, : No Renal angle tenderness; EXTREMITIES: No edema, no clubbing, MUSCULOSKELETAL: no muscle waisting NEURO: Awake; no lateralizing signs. SKIN: No Rash PSYCH; Flat affect Vitals/I&O's: Vital Signs Temp Pulse Resp BP Pulse Ox 97.8 F 88 18 158/73 H 94 10/25/19 09:23 10/25/19 09:48 10/25/19 09:23 10/25/19 09:23 10/25/19 09:23 Oxygen Delivery Method Room Air Weight: 71.259 kg Body Mass Index (BMI) 26.9 Finger Stick Blood Glucose 174 Intake and Output for Last 24 Hours 10/23/19 10/24/19 10/25/19 23:59 23:59 23:59 Intake Total 2603.66 / 2603.66 540 / 1020 969.00 / 969.00 Output Total 2275 / 2275 400 / 700 1000 / 1000 Balance 328.66 / 328.66 140 / 320 -31.00 / -31.00 Laboratory Results 10/24/19 11:37: POC Glucose 269 H 10/24/19 16:32: POC Glucose 303 H 10/24/19 21:29: POC Glucose 223 H 10/25/19 04:54: WBC 12.0 H, RBC 3.23 L, Hgb 9.0 L, Hct 27.4 L, MCV 84.8, MCH 27.9, MCHC 32.8, RDW Std Deviation 45.1 H, RDW Coeff of Miko 14.8 H, Plt Count 304, MPV 11.2, Immature Gran % (Auto) 1.600 H, Neut % (Auto) 61.3, Lymph % (Auto) 26.1, [place] % (Auto) 8.1, Eos % (Auto) 2.7, Baso % (Auto) 0.2, Absolute Neuts (auto) 7.4, Absolute Lymphs (auto) 3.13, Nucleated RBC % 0 10/25/19 04:54: APTT 23.4 L 10/25/19 04:54: TSH 7.94 H 10/25/19 06:42: POC Glucose 184 H 10/25/19 10:47: POC Glucose 187 H Current Medications Acetaminophen (Tylenol) 650 mg PO Q6H PRN PRN PRN Reason: Pain Score 1-3/Temp > 100.7 F Last Admin: 10/25/19 01:33 Dose: 650 mg Documented by: Al Hydroxide/Mg Hydroxide (Mylanta Ii) 30 ml PO Q6H PRN PRN PRN Reason: Gastric Burning Aspirin (Aspirin, Baby) 81 mg PO DAILY@0800 [facility] Last Admin: 10/25/19 09:28 Dose: 81 mg Documented by: Atorvastatin Calcium (Lipitor) 40 mg PO QHS [facility] Last Admin: 10/24/19 21:30 Dose: 40 mg Documented by: Baclofen (Lioresal) 10 mg PO QHS [facility] Last Admin: 10/24/19 21:30 Dose: 10 mg Documented by: Dextrose (D50w Syringe) 0 gm IV X1 PRN; Protocol PRN Reason: Hypoglycemia Ergocalciferol (Vitamin D) 50,000 unit PO QWEEK [facility] Gabapentin (Neurontin) 100 mg PO QHS [facility] Last Admin: 10/24/19 21:30 Dose: 100 mg Documented by: Glucagon () 1 mg IM .X1 PRN PRN Reason: Hypoglycemia Sodium Chloride () 500 mls @ 999 mls/hr IV .Q31M ONE Last Infusion: 10/22/19 12:14 Dose: Infused Documented by: Pantoprazole Sodium 80 mg/ (Sodium Chloride) 100 mls @ 10 mls/hr CONT INF Q10H [facility] Last Infusion: 10/25/19 09:27 Dose: 10 mls/hr Documented by: Insulin Human Lispro (Humalog Kwikpen (Bkc)) 0 unit SC ACHS [facility]; Protocol Last Admin: 10/25/19 10:51 Dose: 1 u Documented by: Isosorbide Mononitrate (Imdur) 30 mg PO QAM [facility] Last Admin: 10/25/19 09:29 Dose: 30 mg Documented by: Levothyroxine Sodium (Synthroid) 137 mcg PO DAILY@0600 [facility] Last Admin: 10/25/19 05:44 Dose: Not Given Documented by: Losartan Potassium (Cozaar) 100 mg PO DAILY [facility] Last Admin: 10/25/19 09:29 Dose: 100 mg Documented by: Magnesium Hydroxide (Milk Of Magnesia) 30 ml PO DAILY PRN PRN PRN Reason: Constipation Melatonin (Melatonin) 3 mg PO QHS PRN PRN PRN Reason: INSOMNIA Metoprolol Succinate (Toprol Xl (Beta Antwon)) 50 mg PO DAILY [facility] Last Admin: 10/25/19 09:28 Dose: 50 mg Documented by: Morphine Sulfate () 1 - 2 mg IV Q3H PRN PRN PRN Reason: Pain Score 6-10/10 Nitroglycerin (Nitrostat) 0.4 mg SUBLINGUAL Q5M PRN PRN Reason: CHEST Ondansetron HCl (Zofran) 4 mg IV Q8H PRN PRN PRN Reason: NAUSEA/VOMITING Sodium Chloride () 10 - 40 ml IV UD PRN PRN Reason: SALINE FLUSH Last Admin: 10/23/19 08:46 Dose: 10 ml Documented by: Sucralfate (Carafate) 1 gm PO 1HR_ACHS [facility] Last Admin: 10/25/19 10:50 Dose: 1 gm Documented by: STROKE Vital Signs/Narrative: Vital Signs Temp Pulse Resp BP Pulse Ox 10/25/19 09:48 88 10/25/19 09:28 75 10/25/19 09:23 97.8 F 75 18 158/73 H 94 10/25/19 08:44 98.6 F 73 18 126/65 H 94 10/25/19 08:35 78 18 114/68 94 10/25/19 08:30 77 18 127/59 H 95 10/25/19 08:24 98.2 F 82 20 H 129/69 H 94 Medical Necessity - Tobacco Use Smoking Status: Former smoker Tobacco Use: Non-smoker Assessment/Plan All Active Problems (Last Updated 10/23/19 @ 07:34 by Hermilo Elizabeth MD) UGI bleed (Acute) Acute blood loss anemia (Acute) Patient is an 84-year-old lady admitted with symptomatic anemia 1. Anemia secondary acute on chronic blood loss anemia Patient presented with hemoglobin of 6.8 was also symptomatic transfused with 2 unit PRBC consult placed to general surgery patient underwent endoscopic evaluation on the morning of 10/25/2019 which demonstrated severe erosive esophagitis, some gastritis bolus presence of hiatal hernia. Case was discussed with Dr. Odom following the procedure patient placed on PPI 2. Coronary artery disease status post CABG and subsequent stent placement ?Currently asymptomatic patient is on statin therapy nitrates beta-blockers as well as ARB did continue 3. Diabetes mellitus type II ~Uncontrolled with hyperglycemia patient's oral hypoglycemics held. Placed on long acting insulin, Accu-Cheks a.c. and at bedtime and covered with sliding scale insulin 4. Chronic diastolic congestive heart failure ?Currently compensated 5. Hypertension ~ blood pressure controlled, home medications continued with dose adjustment as needed 6. Hypothyroidism ~patient is on levothyroxine home dose continued 7. Fibromyalgia - symptomatic treatment 8. Degenerative joint disease ?Symptomatic treatment 9. DVT prophylaxis ?SCDs Advance planning; did discuss with the patient and family (patient's daughter) regarding advanced directives as well as CODE STATUS. Did explain the various scenarios involved ( FULL CODE, DNR CCA, DNR CCA with no intubation, and DNR CC and what each meant) elected to remain full code with intubation and CPR if warranted. Order was placed. Time spent on discussion 16 minutes. Code Visit Inpatient E&M: 23961 Subs Hosp L2 Procedures: 34346 Advncd Care Plan 30 Min
[2019-10-25 16:30] LABS: Anion Gap 7 (5-15); BUN 19 mg/dL (7-18); BUN/Creat Ratio 15.4 RATIO (10-20); Calcium,Total 8.4 mg/dL (8.5-10.1); Chloride 110 mmol/L (98-107); Creatinine, Serum 1.23 mg/dL (0.55-1.02); EST Glomerular Filtration Rate 44 mL/min (>60); Est Glom Filt Rate - Afr Amer 54 mL/min (>60); Estimated Creatinine Clearance 30.45 ml/min; Glucose 240 mg/dL (74-106); Potassium 3.9 mmol/L (3.5-5.1); Sodium Level 140 mmol/L (136-145)
[2019-10-25 16:45] LABS: Bedside Glucose 212 mg/dL (70-110)
[2019-10-25 19:52] LABS: Anion Gap 7 (5-15); BUN 20 mg/dL (7-18); BUN/Creat Ratio 16.1 RATIO (10-20); Calcium,Total 8.5 mg/dL (8.5-10.1); Chloride 108 mmol/L (98-107); Creatinine, Serum 1.24 mg/dL (0.55-1.02); EST Glomerular Filtration Rate 44 mL/min (>60); Est Glom Filt Rate - Afr Amer 53 mL/min (>60); Estimated Creatinine Clearance 30.21 ml/min; Glucose 290 mg/dL (74-106); Sodium Level 139 mmol/L (136-145)
[2019-10-25] MEDS: Baclofen 10 MG Tablet PO (21:19)
[2019-10-25] MEDS: Atorvastatin Calcium 40 MG Tablet PO (21:20)
[2019-10-25] MEDS: Gabapentin 100 MG Capsule PO (21:20)
[2019-10-25 21:40] LABS: Bedside Glucose 303 mg/dL (70-110)
[2019-10-25 23:49] LABS: Anion Gap 6 (5-15); BUN 18 mg/dL (7-18); BUN/Creat Ratio 16.4 RATIO (10-20); Calcium,Total 8.4 mg/dL (8.5-10.1); Chloride 108 mmol/L (98-107); EST Glomerular Filtration Rate 51 mL/min (>60); Est Glom Filt Rate - Afr Amer 61 mL/min (>60); Estimated Creatinine Clearance 34.05 ml/min; Glucose 265 mg/dL (74-106); Sodium Level 138 mmol/L (136-145)
[2019-10-26 03:24] VITALS: BP 139/58; PULSE 83; RESP 18; TEMP 36.8; O2SAT 96
[2019-10-26] MEDS: Levothyroxine 137 MCG Tablet PO (05:01)
[2019-10-26 05:04] VITALS: PULSE 94
[2019-10-26 06:32] LABS: Hematocrit 27.3 % (37-47); Hemoglobin 8.9 g/dL (12.0-15.0); Mean Corp Hgb Conc 32.6 g/dL (32-36); Mean Corpuscular Volume 85.8 fL (81-99); Mean Platelet Vol. 11.2 fl (6.2-12.0); Platelet Count 328 K/mm3 (150-450); RBC Distribution Width CV 15.4 % (11.6-14.6); RBC Distribution Width SD 45.9 fl (35.1-43.9); Red Blood Count 3.18 M/mm3 (4.2-5.4); White Blood Count 16.4 K/mm3 (4.4-11.0)
[2019-10-26] MEDS: Sucralfate 1 GM Tablet PO ×2 (06:45→09:40)
[2019-10-26] MEDS: Insulin Lispro 100 UNIT/ML INSULN.PEN SC (06:48)
[2019-10-26 06:55] LABS: Anion Gap 6 (5-15); BUN 15 mg/dL (7-18); BUN/Creat Ratio 16.1 RATIO (10-20); Calcium,Total 8.6 mg/dL (8.5-10.1); Chloride 109 mmol/L (98-107); Creatinine, Serum 0.93 mg/dL (0.55-1.02); EST Glomerular Filtration Rate 61 mL/min (>60); Est Glom Filt Rate - Afr Amer 74 mL/min (>60); Estimated Creatinine Clearance 40.27 ml/min; Glucose 203 mg/dL (74-106); Magnesium 1.8 mg/dL (1.6-2.6); Potassium 3.7 mmol/L (3.5-5.1); Sodium Level 140 mmol/L (136-145)
[2019-10-26 06:56] LABS: Bedside Glucose 207 mg/dL (70-110)
[2019-10-26 07:33] VITALS: O2SAT 88
--- NOTE | 2019-10-26 08:30 | PN.SURG_ITS ---
Subjective: Patient is doing well, has no abdominal complaints and hemoglobin is been stable - Physical Exam Vitals/I&O's: Vital Signs Temp Pulse Resp BP Pulse Ox 98.3 F 94 18 139/58 H 96 10/26/19 03:24 10/26/19 05:04 10/26/19 03:24 10/26/19 03:24 10/26/19 03:24 Oxygen Delivery Method Room Air Weight: 157 lb 1.6 oz Body Mass Index (BMI) 26.9 Finger Stick Blood Glucose 174 Intake and Output for Last 24 Hours 10/24/19 10/25/19 10/26/19 23:59 23:59 23:59 Intake Total 540 / 1020 1001.67 / 1401.67 649.67 / 649.67 Output Total 400 / 700 1000 / 1000 Balance 140 / 320 1.67 / 401.67 649.67 / 649.67 General: Alert, Oriented x3, Cooperative, No apparent distress HEENT: Atraumatic Lungs: Normal air movement Cardiovascular: Regular rate Abdomen: Soft, Non Tender, Non-Distended Laboratory Results 10/25/19 10:47: POC Glucose 187 H 10/25/19 15:30: Sodium 140, Potassium 3.9, Chloride 110 H, Carbon Dioxide 23.0, Anion Gap 7, BUN 19 H, Creatinine 1.23 H, Estim Creat Clear Calc 30.45, Est GFR (MDRD) Af Amer 54 L, Est GFR (MDRD) Non-Af 44 L, BUN/Creatinine Ratio 15.4, Glucose 240 H, Calcium 8.4 L 10/25/19 16:32: POC Glucose 212 H 10/25/19 19:15: Sodium 139, Potassium 4.0, Chloride 108 H, Carbon Dioxide 24.0, Anion Gap 7, BUN 20 H, Creatinine 1.24 H, Estim Creat Clear Calc 30.21, Est GFR (MDRD) Af Amer 53 L, Est GFR (MDRD) Non-Af 44 L, BUN/Creatinine Ratio 16.1, Glucose 290 H, Calcium 8.5 10/25/19 21:24: POC Glucose 303 H 10/25/19 23:11: Sodium 138, Potassium 4.0, Chloride 108 H, Carbon Dioxide 24.0, Anion Gap 6, BUN 18, Creatinine 1.10 H, Estim Creat Clear Calc 34.05, Est GFR (MDRD) Af Amer 61, Est GFR (MDRD) Non-Af 51 L, BUN/Creatinine Ratio 16.4, Glucose 265 H, Calcium 8.4 L 10/26/19 05:52: Sodium 140, Potassium 3.7, Chloride 109 H, Carbon Dioxide 25.0, Anion Gap 6, BUN 15, Creatinine 0.93, Estim Creat Clear Calc 40.27, Est GFR (MDRD) Af Amer 74, Est GFR (MDRD) Non-Af 61, BUN/Creatinine Ratio 16.1, Glucose 203 H, Calcium 8.6, Magnesium 1.8 10/26/19 05:52: WBC 16.4 H, RBC 3.18 L, Hgb 8.9 L, Hct 27.3 L, MCV 85.8, MCH 28.0, MCHC 32.6, RDW Std Deviation 45.9 H, RDW Coeff of Miko 15.4 H, Plt Count 328, MPV 11.2 10/26/19 06:47: POC Glucose 207 H Current Medications Acetaminophen (Tylenol) 650 mg PO Q6H PRN PRN PRN Reason: Pain Score 1-3/Temp > 100.7 F Last Admin: 10/25/19 23:49 Dose: 650 mg Documented by: Al Hydroxide/Mg Hydroxide (Mylanta Ii) 30 ml PO Q6H PRN PRN PRN Reason: Gastric Burning Aspirin (Aspirin, Baby) 81 mg PO DAILY@0800 [facility] Last Admin: 10/25/19 09:28 Dose: 81 mg Documented by: Atorvastatin Calcium (Lipitor) 40 mg PO QHS [facility] Last Admin: 10/25/19 21:20 Dose: 40 mg Documented by: Baclofen (Lioresal) 10 mg PO QHS [facility] Last Admin: 10/25/19 21:19 Dose: 10 mg Documented by: Dextrose (D50w Syringe) 0 gm IV X1 PRN; Protocol PRN Reason: Hypoglycemia Ergocalciferol (Vitamin D) 50,000 unit PO QWEEK [facility] Gabapentin (Neurontin) 100 mg PO QHS [facility] Last Admin: 10/25/19 21:20 Dose: 100 mg Documented by: Glucagon () 1 mg IM .X1 PRN PRN Reason: Hypoglycemia Sodium Chloride () 500 mls @ 999 mls/hr IV .Q31M ONE Last Infusion: 10/22/19 12:14 Dose: Infused Documented by: Pantoprazole Sodium 80 mg/ (Sodium Chloride) 100 mls @ 10 mls/hr CONT INF Q10H [facility] Last Admin: 10/26/19 00:47 Dose: 10 mls/hr Documented by: Insulin Human Lispro (Humalog Kwikpen (Bkc)) 0 unit SC [facility]; Protocol Last Admin: 10/26/19 06:48 Dose: 1 u Documented by: Isosorbide Mononitrate (Imdur) 30 mg PO QAM [facility] Last Admin: 10/25/19 09:29 Dose: 30 mg Documented by: Levothyroxine Sodium (Synthroid) 137 mcg PO DAILY@0600 [facility] Last Admin: 10/26/19 05:01 Dose: 137 mcg Documented by: Losartan Potassium (Cozaar) 100 mg PO DAILY [facility] Last Admin: 10/25/19 09:29 Dose: 100 mg Documented by: Magnesium Hydroxide (Milk Of Magnesia) 30 ml PO DAILY PRN PRN PRN Reason: Constipation Melatonin (Melatonin) 3 mg PO QHS PRN PRN PRN Reason: INSOMNIA Metoprolol Succinate (Toprol Xl (Beta Antwon)) 50 mg PO DAILY [facility] Last Admin: 10/25/19 09:28 Dose: 50 mg Documented by: Morphine Sulfate () 1 - 2 mg IV Q3H PRN PRN PRN Reason: Pain Score 6-10/10 Nitroglycerin (Nitrostat) 0.4 mg SUBLINGUAL Q5M PRN PRN Reason: CHEST Ondansetron HCl (Zofran) 4 mg IV Q8H PRN PRN PRN Reason: NAUSEA/VOMITING Sodium Chloride () 10 - 40 ml IV UD PRN PRN Reason: SALINE FLUSH Last Admin: 10/23/19 08:46 Dose: 10 ml Documented by: Sucralfate (Carafate) 1 gm PO 1HR_ACHS [facility] Last Admin: 10/26/19 06:45 Dose: 1 gm Documented by: Medical Necessity - Tobacco Use Smoking Status: Former smoker Tobacco Use: Non-smoker Assessment/Plan All Active Problems (Last Updated 10/23/19 @ 07:34 by Hermilo Elizabeth MD) Esophagitis (Acute) UGI bleed (Acute) Acute blood loss anemia (Acute) 84-year-old female with anemia, melena 1. Hemoglobin stable 2. For Protonix 40 mg p.o. twice daily?indefinitely as well as Carafate x1 month, patient is ready to be DC'd this morning Cherelle Rodriguez M.D. Pager: [phone] [facility] [address] [place] [address], [facility], [address] [place] [id number] Office: [phone]
--- NOTE | 2019-10-26 08:33 | DCINST_ITS ---
- Discharge Diagnoses Current Active Problems: Current Active and Chronic Problems (Last Updated 10/23/19 @ 07:34 by Hermilo Elizabeth MD) UGI bleed (Acute) Acute blood loss anemia (Acute) Diabetes mellitus type 2 in nonobese (Chronic) Venous insufficiency (Chronic) Fibromyalgia (Chronic) Degenerative disc disease (Chronic) PVD (peripheral vascular disease) (Chronic) You will use the following diet at home:: Cardiac Your food should be the consistency of: Soft (bite-sized & easy to chew/swallow) Discharge Activity: Return to Normal Activity Allergies/Adverse Reactions: Allergies No Known Allergies Allergy (Verified 10/22/19 10:59) Medications to take at Discharge Nitroglycerin (INPATIENT USE) [Nitrostat] 0.4 mg SUBLINGUAL Q5M PRN 12/21/13 ergocalciferol (vitamin D2) 1,250 mcg (50,000 unit) capsule 50,000 unit PO QMONTH 11/18/17 Aspirin [Aspirin, Baby] 81 mg PO DAILY@0800 07/30/18 isosorbide mononitrate 30 mg tablet,extended release 24 hr 30 mg PO QAM #90 tab 11/03/18 metoprolol succinate 50 mg tablet,extended release 24 hr 50 mg PO DAILY #90 tab 11/17/18 Glipizide/Metformin HCl [Glipizide-Metformin 2.5-250 mg] 2 tab PO BID 02/01/19 Levothyroxine [Synthroid] 137 mcg PO DAILY 02/01/19 atorvastatin 40 mg tablet 40 mg PO QHS 30 Days #30 tab 03/12/19 furosemide 40 mg tablet 40 mg PO DAILY #90 tab 03/12/19 Baclofen 10 mg PO QHS 10/22/19 Clopidogrel Bisulfate [Plavix] 75 mg PO DAILY 10/22/19 Gabapentin [Neurontin] 100 mg PO QHS 10/22/19 Insulin Glargine,Hum.rec.anlog [Toujeo Max Solostar] 35 unit SUBCUT DAILY 10/22/19 Iron Polysaccharide Complex [Ferrex 150] 150 mg PO DAILYCM 10/22/19 Losartan Potassium [Cozaar] 100 mg PO DAILY 10/22/19 Prednisone 10 mg PO DAILY 10/22/19 Acetaminophen [Tylenol Tablet] 650 mg PO Q6H PRN PRN tablet 10/26/19 Pantoprazole Sodium [Protonix] 40 mg PO BID #60 tab 10/26/19 Pantoprazole Sodium [Protonix] 40 mg PO DAILY #90 tab 10/26/19 Potassium Chloride 20 meq PO DAILY #0 10/26/19 Sucralfate [Carafate] 1 gm PO 1HR_ACHS #120 tab 10/26/19 The following prescriptions were given: Sucralfate [Carafate] 1 gm PO 1HR_ACHS #120 tab [facility]: [facility] [address] Pantoprazole Sodium [Protonix] 40 mg PO DAILY #90 tab Transmission Status: [facility] Pantoprazole Sodium [Protonix] 40 mg PO BID #60 tab Transmission Status: Sent to [facility] [address] Please follow up with your Primary Care Physician in: in 1 week Test Results: Test results from this visit will be discussed in further detail at your follow- up appointment, if applicable. Proposed Discharge Date: 10/26/19
[2019-10-26 08:35] VITALS: PULSE 86
--- NOTE | 2019-10-26 08:40 | DS.PCM_ITS ---
Discharge Date and Diagnosis - Problem List Patient Problems: Active and Suspected Problems (Last Updated 10/23/19 @ 07:34 by Hermilo Elizabeth MD) Esophagitis (Acute) UGI bleed (Acute) Acute blood loss anemia (Acute) Date of Admission: 10/22/19 Date of Discharge: 10/26/19 - Primary Discharge Diagnosis Active and Suspected Problems (Last Updated 10/23/19 @ 07:34 by Hermilo Elizabeth MD) Esophagitis (Acute) UGI bleed (Acute) Acute blood loss anemia (Acute) - Secondary Discharge Diagnosis Chronic Problems (Last Updated 10/23/19 @ 07:34 by Hermilo Elizabeth MD) History of non-ST elevation myocardial infarction (NSTEMI) (Chronic 02/02/19) Hypothyroidism (Chronic) Overweight (BMI 25.0-29.9) (Chronic) CAD (coronary artery disease) (Chronic) Diabetes mellitus type 2 in nonobese (Chronic) Venous insufficiency (Chronic) Fibromyalgia (Chronic) Degenerative disc disease (Chronic) PVD (peripheral vascular disease) (Chronic) (HFpEF) heart failure with preserved ejection fraction (Chronic) Essential (primary) hypertension (Chronic) 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) WKE-XOT-KZM-D1 w/ 2.5 x 16 mm Promus Synergy Stent 02/03/19 GSF-BZA-Irvo-Mid OM1 w/ 2.25 x 12 mm Promus Premier 12/30/2013 ICX-IFL-LXF-Prox-Mid OM2 w/ 3.0 x 23 mm Promus Stent 03/05/2010 PNS-NQO-QBL-OM2 w/ Taxus Stent 04/2006 CABG x 3 SVG to D1, SVG-OM & SVG-RCA History of coronary artery stent placement (Chronic 02/03/19) XHE-OOZ-UKG-D1 w/ 2.5 x 16 mm Promus Synergy Stent 02/03/19 YHD-ZRK-Tjla-Mid OM1 w/ 2.25 x 12 mm Promus Premier 12/30/2013 GVD-BPG-MHE-Prox-Mid OM2 w/ 3.0 x 23 mm Promus Stent 03/05/2010 FYX-UHG-MBE-OM2 w/ Taxus Stent 04/2006 H/O coronary artery bypass surgery (Chronic 09/08/92) CABG x 3 SVG to D1, SVG-OM & SVG-RCA SVT (supraventricular tachycardia) (Chronic) HLD (hyperlipidemia) (Chronic) Hospital Course and Treatment Operations: None Summary of Care Provided: Patient is an 84-year-old lady admitted with symptomatic anemia 1. Anemia secondary acute on chronic blood loss anemia Patient presented with hemoglobin of 6.8 was also symptomatic transfused with 2 unit PRBC consult placed to general surgery patient underwent endoscopic evaluation on the morning of 10/25/2019 which demonstrated severe erosive esophagitis, some gastritis bolus presence of hiatal hernia. Case was discussed with Dr. Odom following the procedure patient placed on PPI 2. NSAIDs induced esophagitis and gastritis Endoscopic evaluation on 10/25/2019 demonstrated severe erosive esophagitis, some gastritis patient was discharged home on sacral fate, Protonix 40 mg p.o. twice daily. Patient was on diclofenac and prednisone discontinued. Was instructed to follow-up with Dr. Odom within 1 month 2. Coronary artery disease status post CABG and subsequent stent placement ?Currently asymptomatic patient is on statin therapy nitrates beta-blockers as well as ARB did continue did resume dual antiplatelet therapy (aspirin and Plavix on discharge. 3. Diabetes mellitus type II ~Uncontrolled with hyperglycemia patient's oral hypoglycemics held. Placed on long acting insulin, Accu-Cheks a.c. and at bedtime and covered with sliding scale insulin 4. Chronic diastolic congestive heart failure ?Currently compensated 5. Hypertension ~ blood pressure controlled, home medications continued with dose adjustment as needed 6. Hypothyroidism ~patient is on levothyroxine home dose continued 7. Fibromyalgia - symptomatic treatment 8. Degenerative joint disease ?Symptomatic treatment Patient Problems: Active and Suspected Problems (Last Updated 10/23/19 @ 07:34 by Hermilo Elizabeth MD) Esophagitis (Acute) UGI bleed (Acute) Acute blood loss anemia (Acute) Objective: GENERAL: cooperative HEENT: Atraumatic; EYES; Anicteric, Normal Conjunctiva NECK; supple, normal thyroid, RESPIRATORY: Diminished to auscultation CARDIOVASCULAR: Regular S1 S2, GI: soft, normoactive bowel sounds, : No Renal angle tenderness; EXTREMITIES: No edema, no clubbing, MUSCULOSKELETAL: no muscle waisting NEURO: Awake; no lateralizing signs. SKIN: No Rash PSYCH; Flat affect - Physical Exam Vitals/I&O's: Vital Signs Temp Pulse Resp BP Pulse Ox 98.3 F 94 18 139/58 H 88 10/26/19 03:24 10/26/19 05:04 10/26/19 03:24 10/26/19 03:24 10/26/19 07:33 Oxygen Delivery Method Room Air Weight: 71.259 kg Body Mass Index (BMI) 26.9 Finger Stick Blood Glucose 174 Intake and Output for Last 24 Hours 10/24/19 10/25/19 10/26/19 23:59 23:59 23:59 Intake Total 540 / 1020 1001.67 / 1401.67 649.67 / 649.67 Output Total 400 / 700 1000 / 1000 Balance 140 / 320 1.67 / 401.67 649.67 / 649.67 Laboratory Results 10/25/19 10:47: POC Glucose 187 H 10/25/19 15:30: Sodium 140, Potassium 3.9, Chloride 110 H, Carbon Dioxide 23.0, Anion Gap 7, BUN 19 H, Creatinine 1.23 H, Estim Creat Clear Calc 30.45, Est GFR (MDRD) Af Amer 54 L, Est GFR (MDRD) Non-Af 44 L, BUN/Creatinine Ratio 15.4, Glucose 240 H, Calcium 8.4 L 10/25/19 16:32: POC Glucose 212 H 10/25/19 19:15: Sodium 139, Potassium 4.0, Chloride 108 H, Carbon Dioxide 24.0, Anion Gap 7, BUN 20 H, Creatinine 1.24 H, Estim Creat Clear Calc 30.21, Est GFR (MDRD) Af Amer 53 L, Est GFR (MDRD) Non-Af 44 L, BUN/Creatinine Ratio 16.1, Glucose 290 H, Calcium 8.5 10/25/19 21:24: POC Glucose 303 H 10/25/19 23:11: Sodium 138, Potassium 4.0, Chloride 108 H, Carbon Dioxide 24.0, Anion Gap 6, BUN 18, Creatinine 1.10 H, Estim Creat Clear Calc 34.05, Est GFR (MDRD) Af Amer 61, Est GFR (MDRD) Non-Af 51 L, BUN/Creatinine Ratio 16.4, Glucose 265 H, Calcium 8.4 L 10/26/19 05:52: Sodium 140, Potassium 3.7, Chloride 109 H, Carbon Dioxide 25.0, Anion Gap 6, BUN 15, Creatinine 0.93, Estim Creat Clear Calc 40.27, Est GFR (MDRD) Af Amer 74, Est GFR (MDRD) Non-Af 61, BUN/Creatinine Ratio 16.1, Glucose 203 H, Calcium 8.6, Magnesium 1.8 10/26/19 05:52: WBC 16.4 H, RBC 3.18 L, Hgb 8.9 L, Hct 27.3 L, MCV 85.8, MCH 28.0, MCHC 32.6, RDW Std Deviation 45.9 H, RDW Coeff of Miko 15.4 H, Plt Count 328, MPV 11.2 10/26/19 06:47: POC Glucose 207 H Current Medications Acetaminophen (Tylenol) 650 mg PO Q6H PRN PRN PRN Reason: Pain Score 1-3/Temp > 100.7 F Last Admin: 10/25/19 23:49 Dose: 650 mg Documented by: Al Hydroxide/Mg Hydroxide (Mylanta Ii) 30 ml PO Q6H PRN PRN PRN Reason: Gastric Burning Aspirin (Aspirin, Baby) 81 mg PO DAILY@0800 [facility] Last Admin: 10/25/19 09:28 Dose: 81 mg Documented by: Atorvastatin Calcium (Lipitor) 40 mg PO QHS [facility] Last Admin: 10/25/19 21:20 Dose: 40 mg Documented by: Baclofen (Lioresal) 10 mg PO QHS [facility] Last Admin: 10/25/19 21:19 Dose: 10 mg Documented by: Dextrose (D50w Syringe) 0 gm IV X1 PRN; Protocol PRN Reason: Hypoglycemia Ergocalciferol (Vitamin D) 50,000 unit PO QWEEK [facility] Gabapentin (Neurontin) 100 mg PO QHS [facility] Last Admin: 10/25/19 21:20 Dose: 100 mg Documented by: Glucagon () 1 mg IM .X1 PRN PRN Reason: Hypoglycemia Sodium Chloride () 500 mls @ 999 mls/hr IV .Q31M ONE Last Infusion: 10/22/19 12:14 Dose: Infused Documented by: Pantoprazole Sodium 80 mg/ (Sodium Chloride) 100 mls @ 10 mls/hr CONT INF Q10H [facility] Last Admin: 10/26/19 00:47 Dose: 10 mls/hr Documented by: Insulin Human Lispro (Humalog Kwikpen (Bkc)) 0 unit SC [facility]; Protocol Last Admin: 10/26/19 06:48 Dose: 1 u Documented by: Isosorbide Mononitrate (Imdur) 30 mg PO QAM [facility] Last Admin: 10/25/19 09:29 Dose: 30 mg Documented by: Levothyroxine Sodium (Synthroid) 137 mcg PO DAILY@0600 [facility] Last Admin: 10/26/19 05:01 Dose: 137 mcg Documented by: Losartan Potassium (Cozaar) 100 mg PO DAILY [facility] Last Admin: 10/25/19 09:29 Dose: 100 mg Documented by: Magnesium Hydroxide (Milk Of Magnesia) 30 ml PO DAILY PRN PRN PRN Reason: Constipation Melatonin (Melatonin) 3 mg PO QHS PRN PRN PRN Reason: INSOMNIA Metoprolol Succinate (Toprol Xl (Beta Antwon)) 50 mg PO DAILY [facility] Last Admin: 10/25/19 09:28 Dose: 50 mg Documented by: Morphine Sulfate () 1 - 2 mg IV Q3H PRN PRN PRN Reason: Pain Score 6-10/10 Nitroglycerin (Nitrostat) 0.4 mg SUBLINGUAL Q5M PRN PRN Reason: CHEST Ondansetron HCl (Zofran) 4 mg IV Q8H PRN PRN PRN Reason: NAUSEA/VOMITING Sodium Chloride () 10 - 40 ml IV UD PRN PRN Reason: SALINE FLUSH Last Admin: 10/23/19 08:46 Dose: 10 ml Documented by: Sucralfate (Carafate) 1 gm PO 1HR_[facility] Last Admin: 10/26/19 06:45 Dose: 1 gm Documented by: Discharge Diet: Soft diet Discharge Activity: Return to Normal Activity Home Medications: Medications to take at Discharge Nitroglycerin (INPATIENT USE) [Nitrostat] 0.4 mg SUBLINGUAL Q5M PRN 12/21/13 ergocalciferol (vitamin D2) 1,250 mcg (50,000 unit) capsule 50,000 unit PO QMONTH 11/18/17 Aspirin [Aspirin, Baby] 81 mg PO DAILY@0800 07/30/18 isosorbide mononitrate 30 mg tablet,extended release 24 hr 30 mg PO QA #90 tab 11/03/18 metoprolol succinate 50 mg tablet,extended release 24 hr 50 mg PO DAILY #90 tab 11/17/18 Glipizide/Metformin HCl [Glipizide-Metformin 2.5-250 mg] 2 tab PO BID 02/01/19 Levothyroxine [Synthroid] 137 mcg PO DAILY 02/01/19 atorvastatin 40 mg tablet 40 mg PO QHS 30 Days #30 tab 03/12/19 furosemide 40 mg tablet 40 mg PO DAILY #90 tab 03/12/19 Baclofen 10 mg PO QHS 10/22/19 Clopidogrel Bisulfate [Plavix] 75 mg PO DAILY 10/22/19 Gabapentin [Neurontin] 100 mg PO QHS 10/22/19 Insulin Glargine,Hum.rec.anlog [Toujeo Max Solostar] 35 unit SUBCUT DAILY 10/22/19 Iron Polysaccharide Complex [Ferrex 150] 150 mg PO DAILYCM 10/22/19 Losartan Potassium [Cozaar] 100 mg PO DAILY 10/22/19 Prednisone 10 mg PO DAILY 10/22/19 Acetaminophen [Tylenol Tablet] 650 mg PO Q6H PRN PRN tablet 10/26/19 Pantoprazole Sodium [Protonix] 40 mg PO BID #60 tab 10/26/19 Pantoprazole Sodium [Protonix] 40 mg PO DAILY #90 tab 10/26/19 Potassium Chloride 20 meq PO DAILY #0 10/26/19 Sucralfate [Carafate] 1 gm PO 1HR_[facility] #120 tab 10/26/19 Following Prescrptions Were Given to Patient: Sucralfate [Carafate] 1 gm PO 1HR_[facility] #120 tab Transmission Status: Pending to [address] Pantoprazole Sodium [Protonix] 40 mg PO DAILY #90 tab Transmission Status: Pending to [facility] [place] [address] Pantoprazole Sodium [Protonix] 40 mg PO BID #60 tab Transmission Status: Sent to [facility] [place] [address] Primary Care Physician: Brian Degroot Chi, MD [Primary Care Provider] - Please follow up with your Primary Care Physician in: in 1 week Disposition: Home Minutes spent on discharge:: 35 Patient Condition:: Stable Medical Necessity - Tobacco Use Smoking Status: Former smoker Tobacco Use: Non-smoker Meaningful Use Info Meaningful Use Diagnoses (Choose all that apply): None applicable Code Visit Inpatient E&M: 60644 Disch Hosp
[2019-10-26] MEDS: Aspirin 81 MG TAB.CHEW PO (09:40)
[2019-10-26] MEDS: Losartan Potassium 100 MG Tablet PO (09:40)
[2019-10-26] MEDS: Isosorbide Mononitrate 30 MG Tablet PO (09:40)
[2019-10-26 09:42] VITALS: PULSE 97
[2019-10-26] MEDS: Metoprolol(XL)Succ 50 MG Tablet PO (09:42)
[2019-10-26 09:49] VITALS: BP 130/98; PULSE 98; RESP 18; TEMP 36.7; O2SAT 98
--- NOTE | 2019-10-27 15:00 | CASEMGMT ---
MARAH RIVAS Discharge Follow-Up Phone Call. Lace: 12 Strata: 4 Discharge Date: 10/26/19 Adm Dx: UGI Bleed, Acute on Chronic Anemia d/t GIB Attempted discharge follow-up phone call. No answer. Message left for pt to return call to MS3 Linda CRYSTAL CM, if she has any questions about the discharge instructions, medications, or follow-up appt. Phone number provided. Mone CLEANING RN, CM
== END 2019-10-26 10:15 | disposition home or self-care (01) | DRG 391 ==
LOC: ED 15:38 → MS3 18:59
PROVIDERS: Anesthesiology; Hospitalist; Surgery; Admitting Provider Internal Medicine; Emergency Provider Emergency Medicine; PCP Family Medicine Geriatric Medicine; Visit Provider Internal Medicine
PROC: 0DJ08ZZ Inspection of Upper Intestinal Tract, Via Natural or Artificial Opening Endoscopic (ICD-10-PCS; CPT 43235; principal; 2019-10-25 07:55)
DX: K20.9 Esophagitis, unspecified (principal); K29.71 Gastritis, unspecified, with bleeding; D62 Acute posthemorrhagic anemia; I50.32 Chronic diastolic (congestive) heart failure; K22.8 Other specified diseases of esophagus; I11.0 Hypertensive heart disease with heart failure; K29.70 Gastritis, unspecified, without bleeding; T39.395A Adverse effect of other nonsteroidal anti-inflammatory drugs [NSAID], initial encounter; K44.9 Diaphragmatic hernia without obstruction or gangrene; M79.7 Fibromyalgia; E03.9 Hypothyroidism, unspecified; E78.5 Hyperlipidemia, unspecified; I87.2 Venous insufficiency (chronic) (peripheral); I25.10 Atherosclerotic heart disease of native coronary artery without angina pectoris; E66.3 Overweight; E11.65 Type 2 diabetes mellitus with hyperglycemia; M19.90 Unspecified osteoarthritis, unspecified site; I25.2 Old myocardial infarction; Z95.5 Presence of coronary angioplasty implant and graft; Z68.26 Body mass index [BMI] 26.0-26.9, adult; Z95.1 Presence of aortocoronary bypass graft; Z79.4 Long term (current) use of insulin
CPT/HCPCS: 36415; 70496; 70498; 71045; 80048; 80053; 81001; 82962; 83036; 83735; 84100; 84443; 85014; 85018; 85025; 85027; 85610; 85730; 86644; 86850; 86900; 86901; 86920; 86922; 88305; 88312; 88313; 88342; 93005; 99285; J7040; J7120; P9016; P9040; Q9967; A4216; J2405; J3490

== ENCOUNTER → 2019-11-02 11:13 | Outpatient (CLI) | payer MEDICARE, SELFPAY ==
[2019-10-26 12:20] VITALS: BMI 27.8
[2019-10-28 14:10] VITALS: BMI 26.6
[2019-11-02 12:28] LABS: Absolute Neutrophil Count 7.1 X10^3/uL (2.0-7.7); Basophil# 0.07 X10^3/uL; Basophil% 0.6 % (0-1); Eosinophil# 0.19 X10^3/uL; Eosinophils% 1.7 % (0-5); Hematocrit 29.6 % (37-47); Lymphocyte % 27.4 % (19-41); Mean Corp Hgb Conc 33.8 g/dL (32-36); Mean Corpuscular Hgb 28.6 pg (27.0-32.0); Mean Corpuscular Volume 84.6 fL (81-99); Mean Platelet Vol. 10.7 fl (6.2-12.0); Monocyte# 0.79 X10^3/uL; NRBC Flagged by Analyzer 0 % (0-5); Neutrophil # 7.09 X10^3/uL (2.7-7.7); Neutrophil % 62.5 % (47-70); Platelet Count 511 K/mm3 (150-450); RBC Distribution Width CV 14.8 % (11.6-14.6); White Blood Count 11.3 K/mm3 (4.4-11.0)
[2019-11-02 13:03] LABS: ALB/GLOB Ratio 0.8 RATIO (0.9-2.4); AST(SGOT) 9 U/L (15-37); Alanine Aminotransfer ALT/SGPT 18 U/L (13-56); Alkaline Phosphatase 63 U/L (45-117); Anion Gap 12 (5-15); BUN 34 mg/dL (7-18); BUN/Creat Ratio 20.2 RATIO (10-20); Calcium,Total 8.8 mg/dL (8.5-10.1); Chloride 103 mmol/L (98-107); Creatinine, Serum 1.68 mg/dL (0.55-1.02); EST Glomerular Filtration Rate 31 mL/min (>60); Est Glom Filt Rate - Afr Amer 38 mL/min (>60); Globulin 3.8 g/dL (2.2-4.2); Glucose 287 mg/dL (74-106); Potassium 2.9 mmol/L (3.5-5.1); Protein, Total 6.8 g/dL (6.4-8.2); Sodium Level 137 mmol/L (136-145)
== END ==
PROVIDERS: Visit Provider Family Medicine Geriatric Medicine
DX: E11.9 Type 2 diabetes mellitus without complications (principal); I10 Essential (primary) hypertension; N39.0 Urinary tract infection, site not specified
CPT/HCPCS: 36415; 80053; 84443; 85025; 87086; 87088

== ENCOUNTER → 2019-11-03 10:59 | Outpatient (CLI) | payer MEDICARE, SELFPAY ==
[2019-10-26 12:20] VITALS: BMI 27.8
[2019-11-02 14:27] VITALS: BMI 25.9
[2019-11-03 13:03] LABS: Anion Gap 9 (5-15); BUN 25 mg/dL (7-18); BUN/Creat Ratio 22.9 RATIO (10-20); Calcium,Total 9.1 mg/dL (8.5-10.1); Chloride 105 mmol/L (98-107); Creatinine, Serum 1.09 mg/dL (0.55-1.20); EST Glomerular Filtration Rate 51 mL/min (>60); Est Glom Filt Rate - Afr Amer 62 mL/min (>60); Glucose 128 mg/dL (70-110); Potassium 3.2 mmol/L (3.5-5.1); Sodium Level 139 mmol/L (136-145)
== END ==
PROVIDERS: PCP Family Medicine Geriatric Medicine; Visit Provider Family Medicine Geriatric Medicine
DX: N17.9 Acute kidney failure, unspecified (principal)
CPT/HCPCS: 36415; 80048

== ENCOUNTER → 2019-11-05 10:52 | Outpatient (CLI) | payer MEDICARE, SELFPAY ==
[2019-10-26 12:20] VITALS: BMI 27.8
[2019-11-05 07:57] VITALS: BMI 25.9
[2019-11-05 12:38] LABS: Absolute Lymphocyte Count 2.16 X10^3/uL (0.83-4.51); Absolute Neutrophil Count 4.9 X10^3/uL (2.0-7.7); Basophil% 1.3 % (0-1); Eosinophil# 0.21 X10^3/uL; Eosinophils% 2.6 % (0-5); Hemoglobin 9.2 g/dL (12.0-15.0); Lymphocyte # 2.16 X10^3/ul (4.0); Mean Corp Hgb Conc 31.7 g/dL (32-36); Mean Corpuscular Hgb 27.8 pg (27.0-32.0); Mean Corpuscular Volume 87.6 fL (81-99); Mean Platelet Vol. 10.7 fl (6.2-12.0); Monocyte# 0.59 X10^3/uL; Monocyte% 7.4 % (0-10); NRBC Flagged by Analyzer 0 % (0-5); Neutrophil % 61.2 % (47-70); Platelet Count 415 K/mm3 (150-450); RBC Distribution Width CV 14.7 % (11.6-14.6); RBC Distribution Width SD 46.4 fl (35.1-43.9); Red Blood Count 3.31 M/mm3 (4.2-5.4)
[2019-11-05 12:42] LABS: Anion Gap 4 (5-15); BUN 17 mg/dL (7-18); BUN/Creat Ratio 18.4 RATIO (10-20); Calcium,Total 9.1 mg/dL (8.5-10.1); Chloride 109 mmol/L (98-107); Creatinine, Serum 0.92 mg/dL (0.55-1.02); EST Glomerular Filtration Rate 62 mL/min (>60); Est Glom Filt Rate - Afr Amer 75 mL/min (>60); Glucose 173 mg/dL (74-106); Potassium 3.9 mmol/L (3.5-5.1); Sodium Level 140 mmol/L (136-145)
== END ==
PROVIDERS: PCP Family Medicine Geriatric Medicine; Visit Provider Family Medicine Geriatric Medicine
DX: D64.9 Anemia, unspecified (principal); R55 Syncope and collapse
CPT/HCPCS: 36415; 80048; 85025

== ENCOUNTER 2019-11-08 07:38 | Day surgery (SDC) | payer MEDICARE, SELFPAY ==
[2019-10-26 12:20] VITALS: BMI 27.8
[2019-11-02 14:27] VITALS: BMI 25.9
[2019-11-05 07:57] VITALS: BMI 25.9
[2019-11-08 08:13] LABS: Anion Gap 6 (5-15); BUN 16 mg/dL (7-18); BUN/Creat Ratio 19.3 RATIO (10-20); Calcium,Total 9.2 mg/dL (8.5-10.1); Chloride 107 mmol/L (98-107); Creatinine, Serum 0.83 mg/dL (0.55-1.02); EST Glomerular Filtration Rate 70 mL/min (>60); Est Glom Filt Rate - Afr Amer 85 mL/min (>60); Estimated Creatinine Clearance 45.13 ml/min; Glucose 178 mg/dL (74-106); Potassium 3.9 mmol/L (3.5-5.1); Sodium Level 138 mmol/L (136-145)
--- NOTE | 2019-11-08 08:42 | CL.IE_ITS ---
Patient: ENDER ALVES Study Date: 11/08/2019 Performing: Robert Bonilla MD : 1935 Age: 84 Gender: female PROCEDURES PERFORMED [id number] OF LOOP RECORDER INDICATIONS Syncope PROCEDURE DETAILS The patient was brought to the Catheterization Lab in the postabsorptive nonsedated state. Infor med consent was obtained prior to the procedure. Local anesthetic was given subcutaneously to the le ft upper chest area with Lidocaine 2%. Incision was made to the left upper chest. ICM Loop Recorder w as inserted. Steri-strips applied to left subclavicular incision. Pressure dressing applied to left c hest. Instrument, sponge, and needle counts were noted to be normal. The patient tolerated the proced ure well. 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 Device Recommendations: Follow up with Primary Care Physician PROCEDURE MEDICATIONS Fentanyl 25 mcg IV Oxygen: 2 L/min via nasal cannula Ancef 2 Gm IV @ 11/08/2019 08:20:08 Signed By Robert Bonilla MD On 11/08/2019 08:42:37 Robert Bonilla MD
== END 2019-11-08 09:55 | disposition home or self-care (01) ==
LOC: CLSP 07:39
PROVIDERS: PCP Family Medicine Geriatric Medicine; Referring Provider Internal Medicine Cardiovascular Disease; Visit Provider Internal Medicine Cardiovascular Disease
DX: R55 Syncope and collapse (principal); I11.0 Hypertensive heart disease with heart failure; I50.32 Chronic diastolic (congestive) heart failure; I25.10 Atherosclerotic heart disease of native coronary artery without angina pectoris; I25.810 Atherosclerosis of coronary artery bypass graft(s) without angina pectoris; I47.1 Supraventricular tachycardia; I45.10 Unspecified right bundle-branch block; I73.9 Peripheral vascular disease, unspecified; I87.2 Venous insufficiency (chronic) (peripheral); I25.2 Old myocardial infarction; E78.5 Hyperlipidemia, unspecified; E11.9 Type 2 diabetes mellitus without complications; D64.9 Anemia, unspecified; E03.9 Hypothyroidism, unspecified; M79.7 Fibromyalgia; Z95.1 Presence of aortocoronary bypass graft; Z95.5 Presence of coronary angioplasty implant and graft; Z79.82 Long term (current) use of aspirin; Z79.02 Long term (current) use of antithrombotics/antiplatelets; Z79.4 Long term (current) use of insulin; Z79.84 Long term (current) use of oral hypoglycemic drugs; Z87.891 Personal history of nicotine dependence; Z86.73 Personal history of transient ischemic attack (TIA), and cerebral infarction without residual deficits
CPT/HCPCS: 33285; 36415; 80048; 85014; 85018; 99152; J7040

== ENCOUNTER → 2019-11-08 15:11 | Outpatient (CLI) | payer MEDICARE, SELFPAY ==
[2019-10-26 12:20] VITALS: BMI 27.8
[2019-11-05 07:57] VITALS: BMI 25.9
[2019-11-08 17:18] LABS: Hematocrit 28.9 % (37-47); Hemoglobin 9.4 g/dL (12.0-15.0)
== END ==
PROVIDERS: PCP Family Medicine Geriatric Medicine; Visit Provider Family Medicine Geriatric Medicine
DX: D64.9 Anemia, unspecified (principal)
CPT/HCPCS: 36415; 85014; 85018

== ENCOUNTER → 2019-11-17 14:59 | Outpatient (CLI) | payer MEDICARE, SELFPAY ==
[2019-10-26 12:20] VITALS: BMI 27.8
[2019-11-05 07:57] VITALS: BMI 25.9
[2019-11-17 17:28] LABS: Absolute Lymphocyte Count 3.06 X10^3/uL (0.83-4.51); Basophil# 0.08 X10^3/uL; Basophil% 0.9 % (0-1); Eosinophil# 0.23 X10^3/uL; Eosinophils% 2.5 % (0-5); Hematocrit 31.7 % (37-47); Hemoglobin 9.8 g/dL (12.0-15.0); Lymphocyte # 3.06 X10^3/ul (4.0); Lymphocyte % 33.1 % (19-41); Mean Corp Hgb Conc 30.9 g/dL (32-36); Mean Corpuscular Hgb 26.8 pg (27.0-32.0); Mean Corpuscular Volume 86.8 fL (81-99); Mean Platelet Vol. 11.1 fl (6.2-12.0); Monocyte# 0.81 X10^3/uL; Monocyte% 8.8 % (0-10); NRBC Flagged by Analyzer 0 % (0-5); Neutrophil # 5.02 X10^3/uL (2.7-7.7); Neutrophil % 54.3 % (47-70); Platelet Count 378 K/mm3 (150-450); RBC Distribution Width CV 14.4 % (11.6-14.6); RBC Distribution Width SD 45.1 fl (35.1-43.9); Red Blood Count 3.65 M/mm3 (4.2-5.4); White Blood Count 9.2 K/mm3 (4.4-11.0)
[2019-11-17 17:54] LABS: ALB/GLOB Ratio 1.1 RATIO (0.9-2.4); AST(SGOT) 11 U/L (15-37); Alanine Aminotransfer ALT/SGPT 23 U/L (13-56); Albumin, Serum 3.6 g/dL (3.2-5.0); Alkaline Phosphatase 71 U/L (45-117); Anion Gap 8 (5-15); BUN 18 mg/dL (7-18); Calcium,Total 9.6 mg/dL (8.5-10.1); Chloride 106 mmol/L (98-107); EST Glomerular Filtration Rate 56 mL/min (>60); Est Glom Filt Rate - Afr Amer 68 mL/min (>60); Globulin 3.4 g/dL (2.2-4.2); Glucose 186 mg/dL (74-106); Potassium 3.9 mmol/L (3.5-5.1); Sodium Level 138 mmol/L (136-145); Thyroid Stim Hormone (TSH) 0.95 uIU/mL (0.358-3.74)
== END ==
PROVIDERS: PCP Family Medicine Geriatric Medicine; Visit Provider Family Medicine Geriatric Medicine
DX: E11.9 Type 2 diabetes mellitus without complications (principal); E55.9 Vitamin D deficiency, unspecified; I10 Essential (primary) hypertension
CPT/HCPCS: 36415; 80053; 82306; 84443; 85025

== ENCOUNTER → 2019-12-02 16:37 | Outpatient (CLI) | payer MEDICARE, SELFPAY ==
[2019-10-26 12:20] VITALS: BMI 27.8
[2019-11-05 07:57] VITALS: BMI 25.9
[2019-12-02 16:48] LABS: Absolute Lymphocyte Count 3.37 X10^3/uL (0.83-4.51); Absolute Neutrophil Count 7.6 X10^3/uL (2.0-7.7); Basophil# 0.07 X10^3/uL; Basophil% 0.6 % (0-1); Eosinophil# 0.11 X10^3/uL; Eosinophils% 0.9 % (0-5); Hematocrit 30.5 % (37-47); Hemoglobin 9.7 g/dL (12.0-15.0); Lymphocyte # 3.37 X10^3/ul (4.0); Lymphocyte % 27.8 % (19-41); Mean Corp Hgb Conc 31.8 g/dL (32-36); Mean Corpuscular Hgb 26.6 pg (27.0-32.0); Mean Corpuscular Volume 83.8 fL (81-99); Mean Platelet Vol. 11.2 fl (6.2-12.0); Monocyte% 7.4 % (0-10); NRBC Flagged by Analyzer 0 % (0-5); Neutrophil # 7.58 X10^3/uL (2.7-7.7); Neutrophil % 62.6 % (47-70); Platelet Count 363 K/mm3 (150-450); RBC Distribution Width CV 13.9 % (11.6-14.6); RBC Distribution Width SD 42.5 fl (35.1-43.9); Red Blood Count 3.64 M/mm3 (4.2-5.4); White Blood Count 12.1 K/mm3 (4.4-11.0)
--- NOTE | 2019-12-02 17:05 | RAD_ITS ---
STUDY: X-RAY - ABDOMEN/PELVIS REASON FOR EXAM: Female, 84 years old. ABDOMINAL PAIN TECHNIQUE: KUB COMPARISON: September 18, 2018 FINDINGS: Normal visualized lung bases. There is an unremarkable bowel gas pattern. There is no demonstrated free abdominal air. The visualized liver, spleen and kidneys are grossly normal in size and morphology. Radiopaque densities in the left upper quadrant possibly representing recently ingested pills. Clinical correlation recommended Postop change status post cholecystectomy.. There are degenerative changes of the lumbar spine. RAD/Abd Inc Decub and/or Erect IMPRESSION: Nonspecific abdominal series Electronically Signed: Dalton Lawson MD at 22:01 EST , Service support ,
[2019-12-02 17:20] LABS: AST(SGOT) 9 U/L (15-37); Alanine Aminotransfer ALT/SGPT 21 U/L (13-56); Albumin, Serum 3.2 g/dL (3.2-5.0); Alkaline Phosphatase 63 U/L (45-117); Anion Gap 7 (5-15); BUN 22 mg/dL (7-18); BUN/Creat Ratio 21.4 RATIO (10-20); Calcium,Total 9.2 mg/dL (8.5-10.1); Chloride 110 mmol/L (98-107); Creatinine, Serum 1.03 mg/dL (0.55-1.02); EST Glomerular Filtration Rate 55 mL/min (>60); Est Glom Filt Rate - Afr Amer 66 mL/min (>60); Globulin 3.1 g/dL (2.2-4.2); Glucose 274 mg/dL (74-106); Potassium 3.8 mmol/L (3.5-5.1); Protein, Total 6.3 g/dL (6.4-8.2); Sodium Level 141 mmol/L (136-145)
== END ==
PROVIDERS: PCP Family Medicine Geriatric Medicine; Referring Provider Family Medicine Geriatric Medicine; Visit Provider Family Medicine Geriatric Medicine
DX: R10.9 Unspecified abdominal pain (principal)
CPT/HCPCS: 36415; 74019; 80053; 85025

== ENCOUNTER → 2020-02-03 15:43 | Outpatient (CLI) | payer MEDICARE, SELFPAY ==
[2019-10-26 12:20] VITALS: BMI 27.8
[2020-01-31 11:28] VITALS: BMI 25.5
--- NOTE | 2020-02-03 15:49 | VDLE_ITS ---
Reason For Study: Swelling RIGHT CFV is compressible, spontaneous, phasic, competent and demonstrates normal augmentation. FV is compressible, spontaneous, phasic, competent and demonstrates normal augmentation. POP V is compressible, spontaneous, phasic, competent and demonstrates normal augmentation. T/P Trunk is compressible. PTV is compressible. RT PerV is compressible. GSV previously harvested. Procedure Exam performed in department. A preliminary report was called and/or faxed to [facility]. Interpretation Summary Deep veins of the right lower extremity are patent and compressible segmentally. There is no evidence of right lower extremity deep vein thrombosis. Valvular competence appears intact within the proximal deep venous system on the right . The right great saphenous vein is absent, having been previously harvested. Ordering Physician: Brian Degroot Referring Physician: Brian Degroot Chi Performed By: Linda Germain RVT
== END ==
PROVIDERS: PCP Family Medicine Geriatric Medicine; Referring Provider Family Medicine Geriatric Medicine; Visit Provider Family Medicine Geriatric Medicine
DX: R60.0 Localized edema (principal)
CPT/HCPCS: 93971

== ENCOUNTER 2020-02-17 17:06 | Emergency (ER) | payer MEDICARE, SELFPAY ==
[2019-10-26 12:20] VITALS: BMI 27.8
[2020-01-31 11:28] VITALS: BMI 25.5
[2020-02-17 17:07] VITALS: BP 199/85; PULSE 85; RESP 16; TEMP 36.1; O2SAT 98; BMI 25.2
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
--- NOTE | 2020-02-17 17:53 | ED.DEP ---
ED Disposition - Plan for ED Patient: Instructions: ED AVULSION LACERATION, ED Mechanical Fall Referrals: Brian Degroot Chi, MD [Primary Care Provider] - 1 Day
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
[2020-02-17 18:31] VITALS: O2SAT 95
== END 2020-02-17 18:36 | disposition home or self-care (01) ==
PROVIDERS: Emergency Provider Emergency Medicine; PCP Family Medicine Geriatric Medicine
DX: S51.811A Laceration without foreign body of right forearm, initial encounter (principal); S81.011A Laceration without foreign body, right knee, initial encounter; W10.1XXA Fall (on)(from) sidewalk curb, initial encounter; I25.10 Atherosclerotic heart disease of native coronary artery without angina pectoris; Z79.899 Other long term (current) drug therapy
CPT/HCPCS: 99282

== ENCOUNTER → 2020-02-18 10:23 | Outpatient (CLI) | payer MEDICARE, SELFPAY ==
[2019-10-26 12:20] VITALS: BMI 27.8
[2020-02-17 17:07] VITALS: BMI 25.2
[2020-02-18 12:30] LABS: Absolute Lymphocyte Count 2.57 X10^3/uL (0.83-4.51); Absolute Neutrophil Count 6.3 X10^3/uL (2.0-7.7); Basophil# 0.07 X10^3/uL; Basophil% 0.7 % (0-1); Eosinophil# 0.08 X10^3/uL; Eosinophils% 0.8 % (0-5); Hematocrit 32.6 % (37-47); Hemoglobin 9.9 g/dL (12.0-15.0); Lymphocyte # 2.57 X10^3/ul (4.0); Lymphocyte % 26.2 % (19-41); Mean Corp Hgb Conc 30.4 g/dL (32-36); Mean Corpuscular Hgb 24.1 pg (27.0-32.0); Mean Corpuscular Volume 79.5 fL (81-99); Mean Platelet Vol. 12.1 fl (6.2-12.0); Monocyte# 0.71 X10^3/uL; Monocyte% 7.2 % (0-10); NRBC Flagged by Analyzer 0 % (0-5); Neutrophil # 6.34 X10^3/uL (2.7-7.7); Neutrophil % 64.8 % (47-70); Platelet Count 344 K/mm3 (150-450); RBC Distribution Width CV 15.7 % (11.6-14.6); RBC Distribution Width SD 45.2 fl (35.1-43.9); White Blood Count 9.8 K/mm3 (4.4-11.0)
[2020-02-18 12:54] LABS: AST(SGOT) 10 U/L (15-37); Alanine Aminotransfer ALT/SGPT 22 U/L (13-56); Albumin, Serum 3.3 g/dL (3.2-5.0); Alkaline Phosphatase 72 U/L (45-117); Anion Gap 8 (5-15); BUN 13 mg/dL (7-18); BUN/Creat Ratio 14.3 RATIO (10-20); Calcium,Total 9.1 mg/dL (8.5-10.1); Chloride 102 mmol/L (98-107); Creatinine, Serum 0.91 mg/dL (0.55-1.02); EST Glomerular Filtration Rate 63 mL/min (>60); Est Glom Filt Rate - Afr Amer 76 mL/min (>60); Globulin 3.3 g/dL (2.2-4.2); Glucose 287 mg/dL (74-106); Protein, Total 6.6 g/dL (6.4-8.2); Sodium Level 137 mmol/L (136-145); Thyroid Stim Hormone (TSH) 0.61 uIU/mL (0.358-3.74); Uric Acid 2.6 mg/dL (2.6-6.0)
[2020-02-18 12:56] LABS: Vitamin D,25 Hydroxy 39.4 ng/mL
== END ==
PROVIDERS: PCP Family Medicine Geriatric Medicine; Visit Provider Family Medicine Geriatric Medicine
DX: E11.9 Type 2 diabetes mellitus without complications (principal); E55.9 Vitamin D deficiency, unspecified; I10 Essential (primary) hypertension; M10.9 Gout, unspecified
CPT/HCPCS: 36415; 80053; 82306; 84443; 84550; 85025

== ENCOUNTER → 2020-02-22 09:31 | Outpatient (CLI) | payer MEDICARE, SELFPAY ==
[2019-10-26 12:20] VITALS: BMI 27.8
[2020-01-31 11:28] VITALS: BMI 25.5
[2020-02-17 17:07] VITALS: BMI 25.2
--- NOTE | 2020-02-22 09:38 | ART_ITS ---
Reason For Study: PVD Procedure A bilateral lower extremity continuous wave Doppler with analog waveform analysis,segmental pressures,and ankle brachial indexes without exercise. Left Segmental Pressures Left brachial= 195mmHg. Left calf = 199mmHg. Left posterior tibial artery = 171mmHg. Left dorsalis pedis artery = 150mmHg. Left digit = 87 mmHg. The left dorsalis pedis waveforms are biphasic. The left posterior tibial artery waveforms are biphasic. Right Segmental Pressures Right brachial= 186mmHg. Right thigh = 190mmHg. Right calf = 186mmHg. Right posterior tibial artery = 170mmHg. Right dorsalis pedis artery = 171mmHg. Right digit = 74 mmHg. The right dorsalis pedis waveforms are biphasic. The right posterior tibial artery waveforms are biphasic. Indices The right ankle brachial index by the dorsalis pedis is .88. The right ankle brachial index by the posterior tibial artery is .87. The right digital-brachial index is .38. The left ankle brachial index by the dorsalis pedis is .77. The left ankle brachial index by the posterior tibial artery is .88. The left digital-brachial index is .45. Interpretation Summary Biphasic Doppler waveforms are noted at ankle level bilaterally. Pulse-volume recording waveform amplitudes appear diminished at ankle and digital level bilaterally. Resting ankle-brachial indices are mildly diminished bilaterally. Digital-brachial indices are moderately diminished bilaterally. There is evidence of mild arterial occlusive disease at ankle level bilaterally. There is evidence of moderate, distal, small-vessel arterial occlusive disease at digital level bilaterally. Ordering Physician: Felice Faulkner Performed By: DAVIDSON HAMILTON [facility]
--- NOTE | 2020-02-22 09:38 | VDLE_ITS ---
Reason For Study: chronic venous insufficiency RIGHT LEFT CFV is compressible, spontaneous, phasic, CFV is compressible, spontaneous, phasic, competent and demonstrates normal competent, and demonstrates normal augmentation. augmentation. FV is compressible, spontaneous, phasic, FV is compressible, spontaneous, phasic, competent and demonstrates normal competent and demonstrates normal augmentation. augmentation. POP V is compressible, spontaneous, phasic, POP V is compressible, spontaneous, phasic, competent and demonstrates normal competent and demonstrates normal augmentation. augmentation. T/P Trunk is compressible. T/P Trunk is compressible. PTV is compressible. PTV is compressible. RT PerV is compressible. LT PerV is compressible. GSV is harvested. SFJ is competent and measures .33 x .31 cm. SFJ is competent and measures .48 x .48 cm. GSV proximal thigh measures .17 x .19 cm. SSV proximal calf is competent and GSV at knee measures .22 x .23 cm. measures .28 x .31 cm. GSV is competent throughout. Procedure SSV proximal calf is competent and Exam performed in department. measures .15 x .18 cm. The exam was diagnostic. Interpretation Summary Deep veins of the lower extremities are bilaterally patent and compressible segmentally. There is no evidence of deep vein thrombosis on either side. Valvular competence appears intact within the proximal deep venous systems bilaterally. The right great saphenous vein is absent, having been previously harvested. The left great saphenous vein appears patent and compressible segmentally. Sapheno-femoral junctions are bilaterally competent . The left great saphenous vein appears segmentally competent. Small saphenous veins are patent and competent bilaterally. Ordering Physician: Felice Faulkner Performed By: Alfonzo Mcallister RVT
== END ==
PROVIDERS: PCP Family Medicine Geriatric Medicine; Referring Provider Surgery; Visit Provider Surgery
DX: I73.9 Peripheral vascular disease, unspecified (principal); R60.0 Localized edema
CPT/HCPCS: 93923; 93970

== ENCOUNTER → 2020-03-07 11:00 | Outpatient (CLI) | payer MEDICARE, SELFPAY ==
[2019-10-26 12:20] VITALS: BMI 27.8
[2020-02-17 17:07] VITALS: BMI 25.2
[2020-03-07 13:15] LABS: Anion Gap 8 (5-15); BUN 17 mg/dL (7-18); BUN/Creat Ratio 18.7 RATIO (10-20); Calcium,Total 9.2 mg/dL (8.5-10.1); Chloride 106 mmol/L (98-107); Creatinine, Serum 0.91 mg/dL (0.55-1.02); EST Glomerular Filtration Rate 63 mL/min (>60); Est Glom Filt Rate - Afr Amer 76 mL/min (>60); Glucose 323 mg/dL (74-106); Potassium 3.5 mmol/L (3.5-5.1); Sodium Level 140 mmol/L (136-145)
== END ==
PROVIDERS: PCP Family Medicine Geriatric Medicine; Visit Provider Family Medicine Geriatric Medicine
DX: E87.6 Hypokalemia (principal)
CPT/HCPCS: 36415; 80048

== ENCOUNTER → 2020-03-09 16:34 | Outpatient (CLI) | payer MEDICARE, SELFPAY ==
[2019-10-26 12:20] VITALS: BMI 27.8
[2020-02-17 17:07] VITALS: BMI 25.2
[2020-03-09 17:12] LABS: Absolute Lymphocyte Count 2.34 X10^3/uL (0.83-4.51); Absolute Neutrophil Count 7.5 X10^3/uL (2.0-7.7); Basophil# 0.09 X10^3/uL; Basophil% 0.8 % (0-1); Eosinophil# 0.14 X10^3/uL; Eosinophils% 1.3 % (0-5); Hematocrit 34.8 % (37-47); Hemoglobin 10.6 g/dL (12.0-15.0); Lymphocyte # 2.34 X10^3/ul (4.0); Lymphocyte % 21.7 % (19-41); Mean Corp Hgb Conc 30.5 g/dL (32-36); Mean Corpuscular Hgb 24.7 pg (27.0-32.0); Mean Corpuscular Volume 80.9 fL (81-99); Mean Platelet Vol. 11.6 fl (6.2-12.0); Monocyte# 0.73 X10^3/uL; Monocyte% 6.8 % (0-10); NRBC Flagged by Analyzer 0 % (0-5); Neutrophil # 7.47 X10^3/uL (2.7-7.7); Neutrophil % 69.1 % (47-70); Platelet Count 339 K/mm3 (150-450); RBC Distribution Width CV 15.9 % (11.6-14.6); RBC Distribution Width SD 46.4 fl (35.1-43.9); White Blood Count 10.8 K/mm3 (4.4-11.0)
--- NOTE | 2020-03-09 17:20 | RAD_ITS ---
STUDY: X-RAY CHEST REASON FOR EXAM: Female, 84 years old. Cough., patient states Hx of Legionnaires TECHNIQUE: Frontal and lateral views of the chest. COMPARISON: 10/22/2019 FINDINGS: There is hyperinflation of the lungs consistent with chronic obstructive lung disease (COPD). No infiltrates or effusions. There is no demonstrated pleural abnormality. Normal size heart. Previous CABG. Implanted pvc monitor is seen. Normal mediastinum and norma. Normal visualized pulmonary arteries. Normal visualized aortic arch and descending thoracic aorta. There are diffuse degenerative changes of the visualized thoracic spine. Stable old right rib fractures. There is no demonstrated abnormality of the visualized soft tissue structures of the upper abdomen. RAD/Chest PA and Lateral IMPRESSION: There are findings consistent with COPD. There is no evidence of acute chest disease. Electronically Signed: Jonathan Pineda MD at 18:23 EDT , Service support ,
[2020-03-09 17:25] LABS: AST(SGOT) 7 U/L (15-37); Alanine Aminotransfer ALT/SGPT 19 U/L (13-56); Albumin, Serum 3.2 g/dL (3.2-5.0); Alkaline Phosphatase 61 U/L (45-117); Anion Gap 8 (5-15); BUN 17 mg/dL (7-18); BUN/Creat Ratio 19.6 RATIO (10-20); Calcium,Total 9.3 mg/dL (8.5-10.1); Chloride 107 mmol/L (98-107); Creatinine, Serum 0.87 mg/dL (0.55-1.02); EST Glomerular Filtration Rate 66 mL/min (>60); Est Glom Filt Rate - Afr Amer 80 mL/min (>60); Globulin 3.3 g/dL (2.2-4.2); Glucose 261 mg/dL (74-106); Potassium 3.6 mmol/L (3.5-5.1); Protein, Total 6.5 g/dL (6.4-8.2); Sodium Level 141 mmol/L (136-145)
--- NOTE | 2020-03-09 17:25 | RAD_ITS ---
STUDY: X-RAY - ABDOMEN/PELVIS REASON FOR EXAM: Female, 84 years old. Fecal impaction TECHNIQUE: Single AP view of the abdomen / pelvis. COMPARISON: 12/02/2019. FINDINGS: Normal visualized lung bases. There is an unremarkable bowel gas pattern. No significant fecal retention or impaction seen. There is no demonstrated free abdominal air. The visualized liver, spleen and kidneys are grossly normal in size and morphology. Normal soft tissue structures. Normal visualized osseous structures. RAD/Abdomen Single View IMPRESSION: No definite acute or significant abnormality seen. Electronically Signed: Jonathan Pineda MD at 18:33 EDT , Service support ,
== END ==
PROVIDERS: PCP Family Medicine Geriatric Medicine; Visit Provider Family Medicine Geriatric Medicine
DX: G83.10 Monoplegia of lower limb affecting unspecified side (principal); N39.0 Urinary tract infection, site not specified
CPT/HCPCS: 36415; 71046; 74018; 80053; 85025; 87086; 87088

== ENCOUNTER → 2020-04-21 10:54 | Outpatient (CLI) | payer MEDICARE, SELFPAY ==
[2019-10-26 12:20] VITALS: BMI 27.8
[2020-04-21 12:26] LABS: Absolute Lymphocyte Count 2.07 X10^3/uL (0.83-4.51); Absolute Neutrophil Count 6.6 X10^3/uL (2.0-7.7); Basophil# 0.09 X10^3/uL; Basophil% 0.9 % (0-1); Eosinophil# 0.17 X10^3/uL; Eosinophils% 1.8 % (0-5); Hematocrit 34.9 % (37-47); Hemoglobin 10.6 g/dL (12.0-15.0); Lymphocyte # 2.07 X10^3/ul (4.0); Lymphocyte % 21.6 % (19-41); Mean Corp Hgb Conc 30.4 g/dL (32-36); Mean Corpuscular Hgb 25.1 pg (27.0-32.0); Mean Corpuscular Volume 82.5 fL (81-99); Mean Platelet Vol. 11.8 fl (6.2-12.0); Monocyte# 0.66 X10^3/uL; Monocyte% 6.9 % (0-10); NRBC Flagged by Analyzer 0 % (0-5); Neutrophil # 6.57 X10^3/uL (2.7-7.7); Neutrophil % 68.4 % (47-70); Platelet Count 349 K/mm3 (150-450); RBC Distribution Width CV 16.3 % (11.6-14.6); RBC Distribution Width SD 48.2 fl (35.1-43.9); Red Blood Count 4.23 M/mm3 (4.2-5.4); White Blood Count 9.6 K/mm3 (4.4-11.0)
[2020-04-21 12:39] LABS: AST(SGOT) 8 U/L (15-37); Alanine Aminotransfer ALT/SGPT 18 U/L (13-56); Albumin, Serum 3.4 g/dL (3.2-5.0); Alkaline Phosphatase 69 U/L (45-117); Anion Gap 6 (5-15); BUN 19 mg/dL (7-18); BUN/Creat Ratio 20.8 RATIO (10-20); Calcium,Total 9.1 mg/dL (8.5-10.1); Chloride 106 mmol/L (98-107); Creatinine, Serum 0.91 mg/dL (0.55-1.02); EST Glomerular Filtration Rate 63 mL/min (>60); Est Glom Filt Rate - Afr Amer 76 mL/min (>60); Globulin 3.4 g/dL (2.2-4.2); Glucose 167 mg/dL (74-106); Potassium 3.6 mmol/L (3.5-5.1); Protein, Total 6.8 g/dL (6.4-8.2); Sodium Level 139 mmol/L (136-145); Thyroid Stim Hormone (TSH) 1.43 uIU/mL (0.358-3.74)
== END ==
PROVIDERS: PCP Family Medicine Geriatric Medicine; Visit Provider Family Medicine Geriatric Medicine
DX: R53.83 Other fatigue (principal); N39.0 Urinary tract infection, site not specified
CPT/HCPCS: 36415; 80053; 84443; 85025; 87086; 87088

== ENCOUNTER → 2020-04-25 14:21 | Outpatient (CLI) | payer MEDICARE, SELFPAY ==
[2019-10-26 12:20] VITALS: BMI 27.8
--- NOTE | 2020-04-25 | LES_PTH ---
PATIENT: ENDER ALVES LOC: [facility] U#:[id number] AGE/SX: 89/F ROOM: RE04/25/[address]: Dr. Brian Degroot MD : [id number] BED: DIS: SPEC #: [id number] RECD: 04/25/20 15:33 STATUS: LENORE MAXINE #: [id number] CRISTOBAL: 04/25/20 00:[address]: Brian Degroot Chi DEPT: SURGICAL PATHOLOGY RECD BY: Adrian Siu Tissues: Skin of face, NOS Procedures: Surgery Specimen Level IV HEADER OPERATION: Biopsy PRE-OP DIAGNOSIS: Face lesion TISSUE SUBMITTED: Face MICROSCOPIC DIAGNOSIS Skin lesion of face, biopsy: Actinic keratosis and extensive solar elastosis. Organisms consistent with tinea. AM:justice 04/27/20 MICROSCOPIC DESCRIPTION Slides are reviewed. GROSS DESCRIPTION Received in fixative is one container labeled with the patient's name and designated face. The specimen consists of a fragment of light atkinson excised skin measuring 1 x 0.8 x 0.2 cm. The specimen is inked, sectioned and totally submitted in one cassette. / AM:justice 04/26/20 TC:5 [facility]: [id number]
== END ==
PROVIDERS: PCP Family Medicine Geriatric Medicine; Visit Provider Family Medicine Geriatric Medicine
DX: L98.9 Disorder of the skin and subcutaneous tissue, unspecified (principal)
CPT/HCPCS: 88305

== ENCOUNTER → 2020-04-27 09:04 | Outpatient (CLI) | payer MEDICARE, SELFPAY ==
[2019-10-26 12:20] VITALS: BMI 27.8
--- NOTE | 2020-04-27 09:06 | ART_ITS ---
Reason For Study: atherosclerosis with claudication Procedure A bilateral lower extremity continuous wave Doppler with analog waveform analysis and ankle brachial indexes. Left Segmental Pressures Left brachial= 201mmHg. Left posterior tibial artery = 194mmHg. Left dorsalis pedis artery = 180mmHg. The left dorsalis pedis waveforms are biphasic. The left posterior tibial artery waveforms are biphasic. Right Segmental Pressures Right brachial= 204mmHg. Right posterior tibial artery = 190mmHg. Right dorsalis pedis artery = 188mmHg. Right digit = 98 mmHg. The right dorsalis pedis waveforms are biphasic. The right posterior tibial artery waveforms are biphasic. Indices The right ankle brachial index by the dorsalis pedis is .92. The right ankle brachial index by the posterior tibial artery is .93. The right digital-brachial index is .48. The left ankle brachial index by the dorsalis pedis is .88. The left ankle brachial index by the posterior tibial artery is .95. The left digital-brachial index is .46. Interpretation Summary Bilateral biphasic flow and TALIA 0.93 and 0.95. Small vessel disease noted with DBI 0.48 and 0.46. Ordering Physician: Tony Vera Performed By: DAVIDSON HAMILTON [facility]
--- NOTE | 2020-04-27 09:06 | ADUL_ITS ---
Reason For Study: atherosclerosis with claudication Right Velocities Ext. Iliac Artery, dist = 105.8 cm./sec. Common Femoral Artery, mid = 116.1 cm./sec. Supf Femoral Artery, prox = 65.0 cm./sec. Supf Femoral Artery, mid = 351.7 cm./sec. Supf Femoral Artery, dist. = 359.6 cm./sec. Profunda Femoral Artery = 90.6 cm./sec. Popliteal Artery, prox. = 76.0 cm./sec. Popliteal Artery, mid = 52.2 cm./sec. Popliteal Artery, dist = 68.7 cm./sec. Post. Tibial Artery, prox = 33.6 cm./sec. Post. Tibial Artery, mid = 45.9 cm./sec. Post. Tibial Artery, dist = 46.9 cm./sec. Peroneal Artery, prox = 87.5 cm./sec. Peroneal Artery, mid = 103.9 cm./sec. Peroneal Artery,dist = 86.7 cm./sec. Ant. Tibial Artery, prox = 69.5 cm./sec. Ant. Tibial Artery, mid = 31.4 cm./sec. Ant. Tibial Artery, dist = 46.2 cm./sec. Interpretation Summary Right femoral artery with severe stenosis noted. Triphasic flow through popliteal and ten biphasic in tibials. Ordering Physician: Tony Vera Performed By: Alfonzo Mcallister RVT
--- NOTE | 2020-04-27 09:06 | VDLE_ITS ---
Reason For Study: varicose veins RIGHT LEFT CFV is compressible, spontaneous, phasic, CFV is compressible, spontaneous, phasic, competent and demonstrates normal competent, and demonstrates normal augmentation. augmentation. FV is compressible, spontaneous, phasic, FV is compressible, spontaneous, phasic, competent and demonstrates normal competent and demonstrates normal augmentation. augmentation. POP V is compressible, spontaneous, phasic, POP V is compressible, spontaneous, phasic, competent and demonstrates normal competent and demonstrates normal augmentation. augmentation. T/P Trunk is compressible. T/P Trunk is compressible. PTV is compressible. PTV is compressible. RT PerV is compressible. LT PerV is compressible. GSV is harvested. SFJ is competent and measures .42 x .51 cm. SFJ is competent and measures .63 x .7 cm. GSV proximal thigh measures .2 x .19 cm. SSV proximal calf is competent and GSV at knee measures .2 x .2 cm. measures .17 x .23 cm. GSV is competent throughout. Procedure SSV proximal calf is INCOMPETENT for greater Exam performed in department. than 0.5 seconds and measures .16 x .16 cm. The exam was diagnostic. Interpretation Summary Bilateral no DVT or SVT seen. No deep reflux. Left LSV small but reflux noted. Ordering Physician: Tony Vera Performed By: Alfonzo Mcallister RVT
== END ==
PROVIDERS: PCP Family Medicine Geriatric Medicine; Referring Provider Surgery Vascular Surgery; Visit Provider Surgery Vascular Surgery
DX: I83.893 Varicose veins of bilateral lower extremities with other complications (principal); I70.211 Atherosclerosis of native arteries of extremities with intermittent claudication, right leg
CPT/HCPCS: 93922; 93926; 93970

== ENCOUNTER → 2020-05-10 15:45 | Outpatient (CLI) | payer MEDICARE, SELFPAY ==
[2019-10-26 12:20] VITALS: BMI 27.8
[2020-05-10 18:47] LABS: Probe Check PASS; Staph aureus DNA By PCR POSITIVE (Negative)
[2020-05-10 18:48] LABS: M R Staph aureus DNA By PCR POSITIVE (Negative)
== END ==
PROVIDERS: PCP Family Medicine Geriatric Medicine; Visit Provider Family Medicine Geriatric Medicine
DX: B95.62 Methicillin resistant Staphylococcus aureus infection as the cause of diseases classified elsewhere (principal)
CPT/HCPCS: 87070; 87075; 87077; 87186; 87205; 87640

== ENCOUNTER → 2020-05-18 14:59 | Outpatient (CLI) | payer MEDICARE, SELFPAY ==
[2019-10-26 12:20] VITALS: BMI 27.8
[2020-05-18 16:31] LABS: Absolute Lymphocyte Count 2.64 X10^3/uL (0.83-4.51); Absolute Neutrophil Count 7.8 X10^3/uL (2.0-7.7); Basophil% 0.9 % (0-1); Eosinophil# 0.28 X10^3/uL; Eosinophils% 2.4 % (0-5); Hematocrit 35.3 % (37-47); Hemoglobin 10.8 g/dL (12.0-15.0); Lymphocyte # 2.64 X10^3/ul (4.0); Lymphocyte % 22.6 % (19-41); Mean Corp Hgb Conc 30.6 g/dL (32-36); Mean Corpuscular Hgb 25.6 pg (27.0-32.0); Mean Corpuscular Volume 83.6 fL (81-99); Mean Platelet Vol. 11.8 fl (6.2-12.0); Monocyte# 0.82 X10^3/uL; NRBC Flagged by Analyzer 0 % (0-5); Neutrophil # 7.81 X10^3/uL (2.7-7.7); Neutrophil % 66.7 % (47-70); Platelet Count 385 K/mm3 (150-450); RBC Distribution Width CV 15.9 % (11.6-14.6); RBC Distribution Width SD 47.9 fl (35.1-43.9); Red Blood Count 4.22 M/mm3 (4.2-5.4); White Blood Count 11.7 K/mm3 (4.4-11.0)
[2020-05-18 16:53] LABS: Vitamin D,25 Hydroxy 30.9 ng/mL
[2020-05-18 17:03] LABS: ALB/GLOB Ratio 0.8 RATIO (0.9-2.4); AST(SGOT) 13 U/L (15-37); Alanine Aminotransfer ALT/SGPT 27 U/L (13-56); Albumin, Serum 3.3 g/dL (3.2-5.0); Alkaline Phosphatase 82 U/L (45-117); Anion Gap 8 (5-15); BUN 19 mg/dL (7-18); BUN/Creat Ratio 15.8 RATIO (10-20); Calcium,Total 9.1 mg/dL (8.5-10.1); Chloride 105 mmol/L (98-107); EST Glomerular Filtration Rate 46 mL/min (>60); Est Glom Filt Rate - Afr Amer 55 mL/min (>60); Globulin 4.1 g/dL (2.2-4.2); Glucose 159 mg/dL (74-106); Potassium 3.9 mmol/L (3.5-5.1); Protein, Total 7.4 g/dL (6.4-8.2); Sodium Level 137 mmol/L (136-145); Thyroid Stim Hormone (TSH) 1.39 uIU/mL (0.358-3.74)
== END ==
PROVIDERS: PCP Family Medicine Geriatric Medicine; Visit Provider Family Medicine Geriatric Medicine
DX: E11.9 Type 2 diabetes mellitus without complications (principal); I10 Essential (primary) hypertension; E55.9 Vitamin D deficiency, unspecified
CPT/HCPCS: 36415; 80053; 82306; 84443; 85025

== ENCOUNTER → 2020-05-31 12:17 | Outpatient (CLI) | payer MEDICARE, SELFPAY ==
[2019-10-26 12:20] VITALS: BMI 27.8
[2020-05-31 12:53] LABS: Anion Gap 5 (5-15); BUN 21 mg/dL (7-18); BUN/Creat Ratio 21.5 RATIO (10-20); Calcium,Total 8.8 mg/dL (8.5-10.1); Chloride 110 mmol/L (98-107); Creatinine, Serum 0.98 mg/dL (0.55-1.02); EST Glomerular Filtration Rate 58 mL/min (>60); Est Glom Filt Rate - Afr Amer 70 mL/min (>60); Glucose 100 mg/dL (74-106); Potassium 4.1 mmol/L (3.5-5.1); Sodium Level 141 mmol/L (136-145)
== END ==
PROVIDERS: PCP Family Medicine Geriatric Medicine; Visit Provider Family Medicine Geriatric Medicine
DX: N18.3 Chronic kidney disease, stage 3 (moderate) (principal)
CPT/HCPCS: 36415; 80048

== ENCOUNTER → 2020-08-16 13:57 | Outpatient (CLI) | payer MEDICARE, SELFPAY ==
[2019-10-26 12:20] VITALS: BMI 27.8
[2020-08-10 10:22] VITALS: BMI 27.4
[2020-08-16 16:29] LABS: Absolute Lymphocyte Count 3.04 X10^3/uL (0.83-4.51); Basophil# 0.11 X10^3/uL; Basophil% 1.1 % (0-1); Eosinophil# 0.31 X10^3/uL; Hematocrit 39.3 % (37-47); Hemoglobin 12.3 g/dL (12.0-15.0); Lymphocyte # 3.04 X10^3/ul (4.0); Lymphocyte % 29.7 % (19-41); Mean Corp Hgb Conc 31.3 g/dL (32-36); Mean Corpuscular Volume 86.4 fL (81-99); Mean Platelet Vol. 12.2 fl (6.2-12.0); Monocyte# 0.79 X10^3/uL; Monocyte% 7.7 % (0-10); NRBC Flagged by Analyzer 0 % (0-5); Neutrophil # 5.95 X10^3/uL (2.7-7.7); Neutrophil % 58.1 % (47-70); Platelet Count 350 K/mm3 (150-450); RBC Distribution Width CV 15.2 % (11.6-14.6); Red Blood Count 4.55 M/mm3 (4.2-5.4); White Blood Count 10.2 K/mm3 (4.4-11.0)
[2020-08-16 16:49] LABS: Vitamin D,25 Hydroxy 24.6 ng/mL
[2020-08-16 17:05] LABS: AST(SGOT) 8 U/L (15-37); Alanine Aminotransfer ALT/SGPT 18 U/L (13-56); Albumin, Serum 3.5 g/dL (3.2-5.0); Alkaline Phosphatase 85 U/L (45-117); Anion Gap 9 (5-15); BUN 21 mg/dL (7-18); BUN/Creat Ratio 14.5 RATIO (10-20); Calcium,Total 9.2 mg/dL (8.5-10.1); Chloride 100 mmol/L (98-107); Creatinine, Serum 1.45 mg/dL (0.55-1.02); EST Glomerular Filtration Rate 37 mL/min (>60); Est Glom Filt Rate - Afr Amer 44 mL/min (>60); Globulin 3.6 g/dL (2.2-4.2); Glucose 237 mg/dL (74-106); Potassium 3.5 mmol/L (3.5-5.1); Protein, Total 7.1 g/dL (6.4-8.2); Sodium Level 137 mmol/L (136-145); Thyroid Stim Hormone (TSH) 3.13 uIU/mL (0.358-3.74)
== END ==
PROVIDERS: PCP Family Medicine Geriatric Medicine; Visit Provider Family Medicine Geriatric Medicine
DX: E11.9 Type 2 diabetes mellitus without complications (principal); E55.9 Vitamin D deficiency, unspecified; I10 Essential (primary) hypertension
CPT/HCPCS: 36415; 80053; 82306; 84443; 85025

== ENCOUNTER 2020-10-26 13:45 | Outpatient (RCR) | payer MEDICARE, SELFPAY ==
[2019-10-26 12:20] VITALS: BMI 27.8
[2020-08-10 10:22] VITALS: BMI 27.4
== END 2020-10-26 23:59 ==
LOC: IMMUN 13:45
PROVIDERS: PCP Family Medicine Geriatric Medicine; Visit Provider Family Medicine
DX: Z23 Encounter for immunization (principal)
CPT/HCPCS: 0011A; 0012A; 91301

== ENCOUNTER → 2020-11-15 13:52 | Outpatient (CLI) | payer MEDICARE, SELFPAY ==
[2019-10-26 12:20] VITALS: BMI 27.8
[2020-08-10 10:22] VITALS: BMI 27.4
[2020-11-15 17:55] LABS: Absolute Lymphocyte Count 2.96 X10^3/uL (0.83-4.51); Absolute Neutrophil Count 6.7 X10^3/uL (2.0-7.7); Basophil% 0.9 % (0-1); Eosinophil# 0.25 X10^3/uL; Eosinophils% 2.3 % (0-5); Hematocrit 39.3 % (37-47); Hemoglobin 12.2 g/dL (12.0-15.0); Lymphocyte # 2.96 X10^3/ul (4.0); Lymphocyte % 27.6 % (19-41); Mean Corpuscular Hgb 27.2 pg (27.0-32.0); Mean Corpuscular Volume 87.7 fL (81-99); Mean Platelet Vol. 12.1 fl (6.2-12.0); Monocyte# 0.73 X10^3/uL; Monocyte% 6.8 % (0-10); NRBC Flagged by Analyzer 0 % (0-5); Neutrophil # 6.66 X10^3/uL (2.7-7.7); Neutrophil % 62.1 % (47-70); Platelet Count 299 K/mm3 (150-450); RBC Distribution Width CV 13.4 % (11.6-14.6); RBC Distribution Width SD 43.6 fl (35.1-43.9); Red Blood Count 4.48 M/mm3 (4.2-5.4); White Blood Count 10.7 K/mm3 (4.4-11.0)
[2020-11-15 18:10] LABS: Vitamin D,25 Hydroxy 26.6 ng/mL
[2020-11-15 18:18] LABS: ALB/GLOB Ratio 0.9 RATIO (0.9-2.4); AST(SGOT) 12 U/L (15-37); Alanine Aminotransfer ALT/SGPT 19 U/L (13-56); Albumin, Serum 3.3 g/dL (3.2-5.0); Alkaline Phosphatase 93 U/L (45-117); Anion Gap 8 (5-15); BUN 23 mg/dL (7-18); BUN/Creat Ratio 22.8 RATIO (10-20); Calcium,Total 9.1 mg/dL (8.5-10.1); Chloride 101 mmol/L (98-107); Creatinine, Serum 1.01 mg/dL (0.55-1.02); EST Glomerular Filtration Rate 56 mL/min (>60); Est Glom Filt Rate - Afr Amer 67 mL/min (>60); Globulin 3.5 g/dL (2.2-4.2); Glucose 283 mg/dL (74-106); Potassium 3.3 mmol/L (3.5-5.1); Protein, Total 6.8 g/dL (6.4-8.2); Sodium Level 136 mmol/L (136-145); Uric Acid 2.7 mg/dL (2.6-6.0)
== END ==
PROVIDERS: PCP Family Medicine Geriatric Medicine; Visit Provider Family Medicine Geriatric Medicine
DX: E11.9 Type 2 diabetes mellitus without complications (principal); E55.9 Vitamin D deficiency, unspecified; I10 Essential (primary) hypertension; M10.9 Gout, unspecified
CPT/HCPCS: 36415; 80053; 82306; 84443; 84550; 85025

== ENCOUNTER → 2021-02-07 16:10 | Outpatient (CLI) | payer MEDICARE, SELFPAY ==
[2019-10-26 12:20] VITALS: BMI 27.8
[2020-08-10 10:22] VITALS: BMI 27.4
[2021-02-07 17:02] LABS: Absolute Lymphocyte Count 2.87 X10^3/uL (0.83-4.51); Basophil# 0.13 X10^3/uL; Basophil% 1.3 % (0-1); Eosinophil# 0.36 X10^3/uL; Eosinophils% 3.5 % (0-5); Hematocrit 40.8 % (37-47); Hemoglobin 13.2 g/dL (12.0-15.0); Lymphocyte # 2.87 X10^3/ul (0.83-4.51); Lymphocyte % 28.1 % (19-41); Mean Corp Hgb Conc 32.4 g/dL (32-36); Mean Corpuscular Hgb 28.1 pg (27.0-32.0); Mean Corpuscular Volume 86.8 fL (81-99); Mean Platelet Vol. 11.5 fl (6.2-12.0); Monocyte# 0.84 X10^3/uL; Monocyte% 8.2 % (0-10); NRBC Flagged by Analyzer 0 % (0-5); Neutrophil % 58.6 % (47-70); Platelet Count 308 K/mm3 (150-450); RBC Distribution Width CV 13.7 % (11.6-14.6); RBC Distribution Width SD 43.7 fl (35.1-43.9); White Blood Count 10.2 K/mm3 (4.4-11.0)
[2021-02-07 17:23] LABS: Hemoglobin A1c 9.2 % (3.8-5.6)
[2021-02-07 17:24] LABS: BNP,B-Type NATRIURETIC PEPTIDE 57.4 pg/mL (0-100)
[2021-02-07 17:37] LABS: AST(SGOT) 14 U/L (15-37); Alanine Aminotransfer ALT/SGPT 20 U/L (13-56); Albumin, Serum 3.6 g/dL (3.2-5.0); Alkaline Phosphatase 90 U/L (45-117); Anion Gap 10 (5-15); BUN 28 mg/dL (7-18); BUN/Creat Ratio 23.9 RATIO (10-20); CPK Total, Creatine Kinase 68 U/L (26-192); Calcium,Total 9.2 mg/dL (8.5-10.1); Chloride 101 mmol/L (98-107); Creatinine, Serum 1.17 mg/dL (0.55-1.02); EST Glomerular Filtration Rate 47 mL/min (>60); Est Glom Filt Rate - Afr Amer 57 mL/min (>60); Globulin 3.6 g/dL (2.2-4.2); Glucose 214 mg/dL (74-106); Potassium 3.3 mmol/L (3.5-5.1); Protein, Total 7.2 g/dL (6.4-8.2); Sodium Level 140 mmol/L (136-145); Thyroid Stim Hormone (TSH) 2.76 uIU/mL (0.358-3.74)
[2021-02-09 12:43] LABS: Myoglobin, Serum < 21 ng/mL (25-58)
== END ==
PROVIDERS: PCP Family Medicine Geriatric Medicine; Visit Provider Family Medicine Geriatric Medicine
DX: E11.9 Type 2 diabetes mellitus without complications (principal); I25.10 Atherosclerotic heart disease of native coronary artery without angina pectoris; R53.83 Other fatigue; R06.09 Other forms of dyspnea
CPT/HCPCS: 36415; 80053; 82550; 83036; 83874; 83880; 84443; 84484; 85025; 87086; 87088

== ENCOUNTER → 2021-02-21 13:49 | Outpatient (CLI) | payer MEDICARE, SELFPAY ==
[2019-10-26 12:20] VITALS: BMI 27.8
[2021-02-08 09:07] VITALS: BMI 27.6
[2021-02-21 16:05] LABS: Absolute Lymphocyte Count 3.05 X10^3/uL (0.83-4.51); Absolute Neutrophil Count 6.1 X10^3/uL (2.0-7.7); Basophil# 0.12 X10^3/uL; Basophil% 1.1 % (0-1); Eosinophil# 0.48 X10^3/uL; Eosinophils% 4.6 % (0-5); Hematocrit 38.2 % (37-47); Hemoglobin 12.5 g/dL (12.0-15.0); Lymphocyte # 3.05 X10^3/ul (0.83-4.51); Lymphocyte % 29.1 % (19-41); Mean Corp Hgb Conc 32.7 g/dL (32-36); Mean Corpuscular Hgb 28.2 pg (27.0-32.0); Mean Corpuscular Volume 86.2 fL (81-99); Monocyte% 6.7 % (0-10); NRBC Flagged by Analyzer 0 % (0-5); Neutrophil # 6.06 X10^3/uL (2.7-7.7); Neutrophil % 57.9 % (47-70); Platelet Count 352 K/mm3 (150-450); RBC Distribution Width CV 13.7 % (11.6-14.6); RBC Distribution Width SD 43.2 fl (35.1-43.9); Red Blood Count 4.43 M/mm3 (4.2-5.4); White Blood Count 10.5 K/mm3 (4.4-11.0)
[2021-02-21 16:19] LABS: ALB/GLOB Ratio 0.9 RATIO (0.9-2.4); AST(SGOT) 13 U/L (15-37); Alanine Aminotransfer ALT/SGPT 25 U/L (13-56); Albumin, Serum 3.4 g/dL (3.2-5.0); Alkaline Phosphatase 85 U/L (45-117); Anion Gap 8 (5-15); BUN 26 mg/dL (7-18); BUN/Creat Ratio 21.1 RATIO (10-20); Calcium,Total 9.1 mg/dL (8.5-10.1); Chloride 106 mmol/L (98-107); Creatinine, Serum 1.23 mg/dL (0.55-1.02); EST Glomerular Filtration Rate 44 mL/min (>60); Est Glom Filt Rate - Afr Amer 54 mL/min (>60); Globulin 3.6 g/dL (2.2-4.2); Glucose 367 mg/dL (74-106); Sodium Level 137 mmol/L (136-145)
[2021-02-22 12:29] LABS: Vitamin D,25 Hydroxy 26.8 ng/mL
== END ==
PROVIDERS: PCP Family Medicine Geriatric Medicine; Visit Provider Family Medicine Geriatric Medicine
DX: I10 Essential (primary) hypertension (principal); E11.9 Type 2 diabetes mellitus without complications; E59 Dietary selenium deficiency; E55.9 Vitamin D deficiency, unspecified
CPT/HCPCS: 36415; 80053; 82306; 84443; 85025

== ENCOUNTER → 2021-04-27 09:42 | Outpatient (CLI) | payer MEDICARE, SELFPAY ==
[2019-10-26 12:20] VITALS: BMI 27.8
[2021-02-08 09:07] VITALS: BMI 27.6
[2021-04-27 10:55] LABS: Thyroid Stim Hormone (TSH) 2.82 uIU/mL (0.358-3.74)
== END ==
PROVIDERS: PCP Family Medicine Geriatric Medicine; Referring Provider Family Medicine Geriatric Medicine; Visit Provider Family Medicine Geriatric Medicine
DX: E03.9 Hypothyroidism, unspecified (principal)
CPT/HCPCS: 36415; 84443

== ENCOUNTER → 2021-05-15 10:36 | Outpatient (CLI) | payer MEDICARE, SELFPAY ==
[2019-10-26 12:20] VITALS: BMI 27.8
[2021-05-15 08:17] VITALS: BMI 27.4
[2021-05-15 11:16] LABS: AST(SGOT) 10 U/L (15-37); Alanine Aminotransfer ALT/SGPT 20 U/L (13-56); Albumin, Serum 3.5 g/dL (3.2-5.0); Alkaline Phosphatase 91 U/L (45-117); Bilirubin, Direct 0.13 mg/dL (0.00-0.30); Cholesterol 148 mg/dL (200); Globulin 3.3 g/dL (2.2-4.2); High Density Lipoprotein 38 mg/dL; Protein, Total 6.8 g/dL (6.4-8.2); Triglycerides 181 mg/dL; Very Low Density Lipoprotein 36 mg/dL (5-40)
== END ==
PROVIDERS: PCP Family Medicine Geriatric Medicine; Visit Provider Nurse Practitioner Gerontology
DX: E78.5 Hyperlipidemia, unspecified (principal)
CPT/HCPCS: 36415; 80061; 80076

== ENCOUNTER → 2021-05-22 11:55 | Outpatient (CLI) | payer MEDICARE, SELFPAY ==
[2019-10-26 12:20] VITALS: BMI 27.8
[2021-05-22 13:02] LABS: Absolute Lymphocyte Count 2.64 X10^3/uL (0.83-4.51); Absolute Neutrophil Count 6.1 X10^3/uL (2.0-7.7); Basophil# 0.09 X10^3/uL; Basophil% 0.9 % (0-1); Eosinophil# 0.31 X10^3/uL; Eosinophils% 3.1 % (0-5); Hematocrit 39.9 % (37-47); Hemoglobin 12.9 g/dL (12.0-15.0); Lymphocyte # 2.64 X10^3/ul (0.83-4.51); Lymphocyte % 26.4 % (19-41); Mean Corp Hgb Conc 32.3 g/dL (32-36); Mean Corpuscular Hgb 28.4 pg (27.0-32.0); Mean Corpuscular Volume 87.7 fL (81-99); Mean Platelet Vol. 12.1 fl (6.2-12.0); Monocyte# 0.82 X10^3/uL; Monocyte% 8.2 % (0-10); NRBC Flagged by Analyzer 0 % (0-5); Neutrophil # 6.09 X10^3/uL (2.7-7.7); Neutrophil % 60.8 % (47-70); Platelet Count 296 K/mm3 (150-450); RBC Distribution Width CV 13.2 % (11.6-14.6); RBC Distribution Width SD 42.3 fl (35.1-43.9); Red Blood Count 4.55 M/mm3 (4.2-5.4)
[2021-05-22 13:19] LABS: Vitamin D,25 Hydroxy 30.8 ng/mL
[2021-05-22 13:34] LABS: ALB/GLOB Ratio 0.9 RATIO (0.9-2.4); AST(SGOT) 9 U/L (15-37); Alanine Aminotransfer ALT/SGPT 21 U/L (13-56); Albumin, Serum 3.4 g/dL (3.2-5.0); Alkaline Phosphatase 87 U/L (45-117); Anion Gap 6 (5-15); BUN 16 mg/dL (7-18); BUN/Creat Ratio 16.4 RATIO (10-20); Calcium,Total 9.1 mg/dL (8.5-10.1); Chloride 107 mmol/L (98-107); Creatinine, Serum 0.98 mg/dL (0.55-1.02); EST Glomerular Filtration Rate 58 mL/min (>60); Est Glom Filt Rate - Afr Amer 70 mL/min (>60); Globulin 3.6 g/dL (2.2-4.2); Glucose 215 mg/dL (74-106); Potassium 3.8 mmol/L (3.5-5.1); Sodium Level 137 mmol/L (136-145); Thyroid Stim Hormone (TSH) 3.13 uIU/mL (0.358-3.74); Uric Acid 3.4 mg/dL (2.6-6.0)
== END ==
PROVIDERS: PCP Family Medicine Geriatric Medicine; Visit Provider Family Medicine Geriatric Medicine
DX: E11.9 Type 2 diabetes mellitus without complications (principal); E55.9 Vitamin D deficiency, unspecified; I10 Essential (primary) hypertension; M10.9 Gout, unspecified
CPT/HCPCS: 36415; 80053; 82306; 84443; 84550; 85025

== ENCOUNTER → 2021-07-25 15:06 | Outpatient (CLI) | payer MEDICARE, SELFPAY ==
[2019-10-26 12:20] VITALS: BMI 27.8
--- NOTE | 2021-07-25 15:15 | RAD_ITS ---
STUDY: X-RAY - RIGHT WRIST REASON FOR EXAM: Female, 85 years old. Pain. Lateral pain. TECHNIQUE: 3 view(s) of the wrist were obtained. COMPARISON: None. FINDINGS: Generalized osteopenia. Normal visualized distal radius and ulna. There is minimal degenerative arthrosis of the radiocarpal articulation. There is a mild positive ulnar variance. Normal carpal bones. 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 Normal carpometacarpal articulation of the thumb. Normal second through fifth carpometacarpal articulations. Normal visualized metacarpal bones. The soft tissue structures are unremarkable. 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 Electronically Signed: Ron Stanton DO at 16:51 EDT Tel [phone], Service support ,
== END ==
PROVIDERS: PCP Family Medicine Geriatric Medicine; Referring Provider Family Medicine Geriatric Medicine; Visit Provider Family Medicine Geriatric Medicine
DX: M19.031 Primary osteoarthritis, right wrist (principal)
CPT/HCPCS: 73110

== ENCOUNTER 2021-11-27 10:48 | Outpatient (CLI) | payer MEDICARE, SELFPAY ==
[2019-10-26 12:20] VITALS: BMI 27.8
[2021-11-27 12:31] LABS: Absolute Lymphocyte Count 1.85 X10^3/uL (0.83-4.51); Absolute Neutrophil Count 5.1 X10^3/uL (2.0-7.7); Basophil# 0.05 X10^3/uL; Basophil% 0.7 % (0-1); Eosinophil# 0.11 X10^3/uL; Eosinophils% 1.4 % (0-5); Hematocrit 37.1 % (37-47); Hemoglobin 12.3 g/dL (12.0-15.0); Lymphocyte # 1.85 X10^3/ul (0.83-4.51); Lymphocyte % 24.3 % (19-41); Mean Corp Hgb Conc 33.2 g/dL (32-36); Mean Corpuscular Volume 81.4 fL (81-99); Mean Platelet Vol. 12.1 fl (6.2-12.0); Monocyte# 0.44 X10^3/uL; Monocyte% 5.8 % (0-10); NRBC Flagged by Analyzer 0 % (0-5); Neutrophil # 5.11 X10^3/uL (2.7-7.7); Neutrophil % 67.3 % (47-70); Platelet Count 250 K/mm3 (150-450); RBC Distribution Width CV 15.6 % (11.6-14.6); RBC Distribution Width SD 46.2 fl (35.1-43.9); Red Blood Count 4.56 M/mm3 (4.2-5.4); White Blood Count 7.6 K/mm3 (4.4-11.0)
[2021-11-27 12:48] LABS: Vitamin D,25 Hydroxy 21.8 ng/mL
[2021-11-27 13:05] LABS: AST(SGOT) 12 U/L (15-37); Alanine Aminotransfer ALT/SGPT 19 U/L (13-56); Albumin, Serum 3.2 g/dL (3.2-5.0); Alkaline Phosphatase 79 U/L (45-117); Anion Gap 4 (5-15); BUN 15 mg/dL (7-18); BUN/Creat Ratio 13.5 RATIO (10-20); Calcium,Total 9.2 mg/dL (8.5-10.1); Chloride 105 mmol/L (98-107); Creatinine, Serum 1.11 mg/dL (0.55-1.02); EST Glomerular Filtration Rate 50 mL/min (>60); Est Glom Filt Rate - Afr Amer 60 mL/min (>60); Globulin 3.3 g/dL (2.2-4.2); Glucose 348 mg/dL (74-106); Potassium 3.5 mmol/L (3.5-5.1); Protein, Total 6.5 g/dL (6.4-8.2); Sodium Level 138 mmol/L (136-145); Uric Acid 2.7 mg/dL (2.6-6.0)
== END 2021-11-27 23:59 | disposition home or self-care (01) ==
LOC: POLAB3 10:50
PROVIDERS: PCP Family Medicine Geriatric Medicine; Visit Provider Family Medicine Geriatric Medicine
DX: E11.9 Type 2 diabetes mellitus without complications (principal); E55.9 Vitamin D deficiency, unspecified; I10 Essential (primary) hypertension; M10.9 Gout, unspecified
CPT/HCPCS: 36415; 80053; 82306; 84443; 84550; 85025

== ENCOUNTER → 2022-02-27 | Outpatient (CLI) | payer MEDICARE, SELFPAY ==
[2019-10-26 12:20] VITALS: BMI 27.8
[2022-02-27 12:10] LABS: Absolute Lymphocyte Count 2.38 X10^3/uL (0.83-4.51); Absolute Neutrophil Count 9.3 X10^3/uL (2.0-7.7); Basophil% 0.8 % (0-1); Eosinophil# 0.15 X10^3/uL; Eosinophils% 1.2 % (0-5); Hematocrit 39.2 % (37-47); Hemoglobin 12.8 g/dL (12.0-15.0); Lymphocyte # 2.38 X10^3/ul (0.83-4.51); Lymphocyte % 18.6 % (19-41); Mean Corp Hgb Conc 32.7 g/dL (32-36); Mean Corpuscular Hgb 28.1 pg (27.0-32.0); Mean Platelet Vol. 12.5 fl (6.2-12.0); Monocyte% 6.2 % (0-10); NRBC Flagged by Analyzer 0 % (0-5); Neutrophil # 9.33 X10^3/uL (2.7-7.7); Neutrophil % 72.7 % (47-70); Platelet Count 268 K/mm3 (150-450); RBC Distribution Width SD 43.8 fl (35.1-43.9); Red Blood Count 4.56 M/mm3 (4.2-5.4); White Blood Count 12.8 K/mm3 (4.4-11.0)
[2022-02-27 12:44] LABS: Vitamin D,25 Hydroxy 41.2 ng/mL
[2022-02-27 13:07] LABS: AST(SGOT) 13 U/L (15-37); Alanine Aminotransfer ALT/SGPT 24 U/L (13-56); Albumin, Serum 3.5 g/dL (3.2-5.0); Alkaline Phosphatase 83 U/L (45-117); Anion Gap 9 (5-15); BUN 18 mg/dL (7-18); BUN/Creat Ratio 15.1 RATIO (10-20); Calcium,Total 9.2 mg/dL (8.5-10.1); Chloride 101 mmol/L (98-107); Creatinine, Serum 1.19 mg/dL (0.55-1.02); EST Glomerular Filtration Rate 46 mL/min (>60); Est Glom Filt Rate - Afr Amer 56 mL/min (>60); Globulin 3.6 g/dL (2.2-4.2); Glucose 432 mg/dL (74-106); Potassium 3.8 mmol/L (3.5-5.1); Protein, Total 7.1 g/dL (6.4-8.2); Sodium Level 135 mmol/L (136-145); Thyroid Stim Hormone (TSH) 6.49 uIU/mL (0.358-3.74); Uric Acid 3.7 mg/dL (2.6-6.0)
== END | disposition home or self-care (01) ==
LOC: POLAB3 09:07
PROVIDERS: PCP Family Medicine Geriatric Medicine; Visit Provider Family Medicine Geriatric Medicine
DX: E11.9 Type 2 diabetes mellitus without complications (principal); E55.9 Vitamin D deficiency, unspecified; I10 Essential (primary) hypertension; M10.9 Gout, unspecified
CPT/HCPCS: 36415; 80053; 82306; 84443; 84550; 85025

== ENCOUNTER → 2022-05-28 | Outpatient (CLI) | payer MEDICARE, SELFPAY ==
[2019-10-26 12:20] VITALS: BMI 27.8
[2022-05-28 16:32] LABS: Absolute Lymphocyte Count 2.59 X10^3/uL (0.83-4.51); Absolute Neutrophil Count 8.2 X10^3/uL (2.0-7.7); Basophil# 0.12 X10^3/uL; Eosinophil# 0.22 X10^3/uL; Eosinophils% 1.8 % (0-5); Hematocrit 39.3 % (37-47); Hemoglobin 13.1 g/dL (12.0-15.0); Lymphocyte # 2.59 X10^3/ul (0.83-4.51); Lymphocyte % 21.8 % (19-41); Mean Corp Hgb Conc 33.3 g/dL (32-36); Mean Corpuscular Hgb 29.3 pg (27.0-32.0); Mean Corpuscular Volume 87.9 fL (81-99); Mean Platelet Vol. 12.3 fl (6.2-12.0); Monocyte# 0.75 X10^3/uL; Monocyte% 6.3 % (0-10); NRBC Flagged by Analyzer 0 % (0-5); Neutrophil # 8.16 X10^3/uL (2.7-7.7); Neutrophil % 68.6 % (47-70); Platelet Count 267 K/mm3 (150-450); RBC Distribution Width CV 13.3 % (11.6-14.6); RBC Distribution Width SD 43.2 fl (35.1-43.9); Red Blood Count 4.47 M/mm3 (4.2-5.4); White Blood Count 11.9 K/mm3 (4.4-11.0)
[2022-05-28 16:56] LABS: ALB/GLOB Ratio 1.1 RATIO (0.9-2.4); AST(SGOT) 15 U/L (15-37); Alanine Aminotransfer ALT/SGPT 30 U/L (13-56); Albumin, Serum 3.7 g/dL (3.2-5.0); Alkaline Phosphatase 83 U/L (45-117); Anion Gap 10 (5-15); BUN 34 mg/dL (7-18); BUN/Creat Ratio 23.8 RATIO (10-20); Calcium,Total 9.2 mg/dL (8.5-10.1); Chloride 98 mmol/L (98-107); Creatinine, Serum 1.43 mg/dL (0.55-1.02); EST Glomerular Filtration Rate 37 mL/min (>60); Est Glom Filt Rate - Afr Amer 45 mL/min (>60); Globulin 3.5 g/dL (2.2-4.2); Glucose 384 mg/dL (74-106); Potassium 3.7 mmol/L (3.5-5.1); Protein, Total 7.2 g/dL (6.4-8.2); Sodium Level 136 mmol/L (136-145); Thyroid Stim Hormone (TSH) 7.77 uIU/mL (0.358-3.74); Uric Acid 5.2 mg/dL (2.6-6.0)
== END | disposition home or self-care (01) ==
LOC: POLAB3 12:52
PROVIDERS: PCP Family Medicine Geriatric Medicine; Visit Provider Family Medicine Geriatric Medicine
DX: I10 Essential (primary) hypertension (principal); E11.9 Type 2 diabetes mellitus without complications; E55.9 Vitamin D deficiency, unspecified; M10.9 Gout, unspecified
CPT/HCPCS: 36415; 80053; 82306; 84443; 84550; 85025

== ENCOUNTER → 2022-07-25 | Outpatient (CLI) | payer MEDICARE, SELFPAY ==
[2019-10-26 12:20] VITALS: BMI 27.8
[2022-07-25 14:08] LABS: Thyroid Stim Hormone (TSH) 7.98 uIU/mL (0.358-3.74)
== END | disposition home or self-care (01) ==
LOC: POLAB3 10:15
PROVIDERS: PCP Family Medicine Geriatric Medicine; Visit Provider Family Medicine Geriatric Medicine
DX: E03.9 Hypothyroidism, unspecified (principal)
CPT/HCPCS: 36415; 84443

== ENCOUNTER → 2022-08-26 | Outpatient (CLI) | payer MEDICARE, SELFPAY ==
[2019-10-26 12:20] VITALS: BMI 27.8
[2022-08-26 16:52] LABS: Absolute Lymphocyte Count 2.34 X10^3/uL (0.83-4.51); Absolute Neutrophil Count 7.5 X10^3/uL (2.0-7.7); Basophil# 0.11 X10^3/uL; Eosinophil# 0.22 X10^3/uL; Hematocrit 38.7 % (37-47); Lymphocyte # 2.34 X10^3/ul (0.83-4.51); Lymphocyte % 21.6 % (19-41); Mean Corp Hgb Conc 33.6 g/dL (32-36); Mean Corpuscular Hgb 29.9 pg (27.0-32.0); Mean Platelet Vol. 11.2 fl (6.2-12.0); Monocyte# 0.61 X10^3/uL; Monocyte% 5.6 % (0-10); NRBC Flagged by Analyzer 0 % (0-5); Neutrophil # 7.49 X10^3/uL (2.7-7.7); Neutrophil % 69.1 % (47-70); Platelet Count 325 K/mm3 (150-450); RBC Distribution Width CV 13.4 % (11.6-14.6); RBC Distribution Width SD 43.7 fl (35.1-43.9); Red Blood Count 4.35 M/mm3 (4.2-5.4); White Blood Count 10.9 K/mm3 (4.4-11.0)
[2022-08-26 17:17] LABS: Vitamin D,25 Hydroxy 31.3 ng/mL
[2022-08-26 17:27] LABS: AST(SGOT) 12 U/L (15-37); Alanine Aminotransfer ALT/SGPT 25 U/L (13-56); Albumin, Serum 3.3 g/dL (3.2-5.0); Alkaline Phosphatase 74 U/L (45-117); Anion Gap 6 (5-15); BUN 15 mg/dL (7-18); BUN/Creat Ratio 14.4 RATIO (10-20); Calcium,Total 9.4 mg/dL (8.5-10.1); Chloride 108 mmol/L (98-107); Creatinine, Serum 1.04 mg/dL (0.55-1.02); EST Glomerular Filtration Rate 54 mL/min (>60); Est Glom Filt Rate - Afr Amer 65 mL/min (>60); Globulin 3.3 g/dL (2.2-4.2); Glucose 338 mg/dL (74-106); Potassium 3.7 mmol/L (3.5-5.1); Protein, Total 6.6 g/dL (6.4-8.2); Sodium Level 140 mmol/L (136-145); Thyroid Stim Hormone (TSH) 6.98 uIU/mL (0.358-3.74)
== END | disposition home or self-care (01) ==
LOC: POLAB3 14:45
PROVIDERS: PCP Family Medicine Geriatric Medicine; Visit Provider Family Medicine Geriatric Medicine
DX: E55.9 Vitamin D deficiency, unspecified (principal); I10 Essential (primary) hypertension
CPT/HCPCS: 36415; 80053; 82306; 84443; 85025

== ENCOUNTER → 2022-11-12 | Outpatient (CLI) | payer MEDICARE, SELFPAY ==
[2019-10-26 12:20] VITALS: BMI 27.8
--- NOTE | 2022-11-12 11:09 | US_ITS ---
STUDY: SUPERFICIAL ULTRASOUND - LEFT PERIAURICULAR REGION. REASON FOR EXAM: Female, 87 years old. Preauricular lump TECHNIQUE: A superficial ultrasound was performed with real-time and static lux-scale imaging. COMPARISON: None. FINDINGS: The palpable lump corresponds to a 5 mm x 4 mm x 2 mm benign-appearing lymph node. US/Head/Neck Soft Tissue IMPRESSION: The palpable lump corresponds to a 5 mm x 4 mm x 2 mm benign-appearing lymph node. Electronically Signed: Farzad Banks MD at 14:44 EST ,
== END | disposition home or self-care (01) ==
LOC: US 11:00
PROVIDERS: PCP Family Medicine Geriatric Medicine; Referring Provider Family Medicine Geriatric Medicine; Visit Provider Family Medicine Geriatric Medicine
DX: R59.0 Localized enlarged lymph nodes (principal)
CPT/HCPCS: 76536

== ENCOUNTER → 2022-11-25 | Outpatient (CLI) | payer MEDICARE, SELFPAY ==
[2019-10-26 12:20] VITALS: BMI 27.8
[2022-11-25 13:07] LABS: Absolute Lymphocyte Count 2.62 X10^3/uL (0.83-4.51); Absolute Neutrophil Count 7.2 X10^3/uL (2.0-7.7); Basophil# 0.09 X10^3/uL; Basophil% 0.8 % (0-1); Eosinophil# 0.23 X10^3/uL; Eosinophils% 2.1 % (0-5); Hematocrit 38.3 % (37-47); Hemoglobin 12.6 g/dL (12.0-15.0); Lymphocyte # 2.62 X10^3/ul (0.83-4.51); Lymphocyte % 23.9 % (19-41); Mean Corp Hgb Conc 32.9 g/dL (32-36); Mean Corpuscular Hgb 28.8 pg (27.0-32.0); Mean Corpuscular Volume 87.4 fL (81-99); Mean Platelet Vol. 11.7 fl (6.2-12.0); Monocyte# 0.73 X10^3/uL; Monocyte% 6.7 % (0-10); NRBC Flagged by Analyzer 0 % (0-5); Neutrophil # 7.23 X10^3/uL (2.7-7.7); Platelet Count 286 K/mm3 (150-450); RBC Distribution Width CV 12.9 % (11.6-14.6); RBC Distribution Width SD 41.1 fl (35.1-43.9); Red Blood Count 4.38 M/mm3 (4.2-5.4)
[2022-11-25 13:28] LABS: AST(SGOT) 15 U/L (15-37); Alanine Aminotransfer ALT/SGPT 23 U/L (13-56); Albumin, Serum 3.5 g/dL (3.2-5.0); Alkaline Phosphatase 79 U/L (45-117); Anion Gap 9 (5-15); BUN 21 mg/dL (7-18); BUN/Creat Ratio 17.1 RATIO (10-20); Calcium,Total 9.2 mg/dL (8.5-10.1); Chloride 101 mmol/L (98-107); Creatinine, Serum 1.23 mg/dL (0.55-1.02); EST Glomerular Filtration Rate 44 mL/min (>60); Est Glom Filt Rate - Afr Amer 53 mL/min (>60); Globulin 3.4 g/dL (2.2-4.2); Glucose 350 mg/dL (74-106); Potassium 3.3 mmol/L (3.5-5.1); Protein, Total 6.9 g/dL (6.4-8.2); Sodium Level 139 mmol/L (136-145); Thyroid Stim Hormone (TSH) 4.11 uIU/mL (0.358-3.74)
== END | disposition home or self-care (01) ==
LOC: POLAB3 10:13
PROVIDERS: PCP Family Medicine Geriatric Medicine; Visit Provider Family Medicine Geriatric Medicine
DX: E11.9 Type 2 diabetes mellitus without complications (principal); E55.9 Vitamin D deficiency, unspecified; I10 Essential (primary) hypertension
CPT/HCPCS: 36415; 80053; 82306; 84443; 85025

== ENCOUNTER → 2022-12-17 | Outpatient (CLI) | payer MEDICARE, SELFPAY ==
[2019-10-26 12:20] VITALS: BMI 27.8
[2022-12-17 14:55] LABS: M R Staph aureus DNA By PCR Negative (Negative); Probe Check PASS; Specimen Processing Control PASS; Staph aureus DNA By PCR POSITIVE (Negative)
== END | disposition home or self-care (01) ==
LOC: POLAB3 12:09
PROVIDERS: PCP Family Medicine Geriatric Medicine; Visit Provider Family Medicine Geriatric Medicine
DX: S81.802A Unspecified open wound, left lower leg, initial encounter (principal); B95.62 Methicillin resistant Staphylococcus aureus infection as the cause of diseases classified elsewhere; M79.605 Pain in left leg
CPT/HCPCS: 87070; 87205; 87640

== ENCOUNTER → 2023-01-16 | Outpatient (CLI) | payer MEDICARE, SELFPAY ==
[2019-10-26 12:20] VITALS: BMI 27.8
--- NOTE | 2023-01-16 12:27 | RAD_ITS ---
INDICATION: PAIN IN LEFT LEG EXAMINATION/TECHNIQUE: X-RAY - LEFT XR Tibia/Fibula 2 Views 2 VIEWS COMPARISON: None. FINDINGS: SOFT TISSUES: No soft tissue swelling or gas. No radiopaque foreign body. BONES/JOINTS: No acute fracture. Joint spaces anatomically aligned. No sclerotic or destructive changes observed. RAD/Tibia & Fibula 2 Views IMPRESSION: No acute findings. Electronically Signed: Ryan Nobles MD at 18:17 EDT ,
== END | disposition home or self-care (01) ==
PROVIDERS: PCP Family Medicine Geriatric Medicine; Referring Provider Family Medicine Geriatric Medicine; Visit Provider Family Medicine Geriatric Medicine
DX: M79.605 Pain in left leg (principal); E03.9 Hypothyroidism, unspecified; B95.62 Methicillin resistant Staphylococcus aureus infection as the cause of diseases classified elsewhere; S81.802A Unspecified open wound, left lower leg, initial encounter
CPT/HCPCS: 36415; 73590; 80048; 84443; 85025; 85652; 86140; 87070; 87205; 87640

== ENCOUNTER → 2023-01-16 | Outpatient (CLI) | payer MEDICARE, SELFPAY ==
[2019-10-26 12:20] VITALS: BMI 27.8
[2023-01-16 13:59] LABS: Anion Gap 4 (5-15); BUN 20 mg/dL (7-18); BUN/Creat Ratio 20.5 RATIO (10-20); CRP < 2.90 mg/L (0.0-3.0); Calcium,Total 9.5 mg/dL (8.5-10.1); Chloride 111 mmol/L (98-107); Creatinine, Serum 0.98 mg/dL (0.55-1.02); EST Glomerular Filtration Rate 58 mL/min (>60); Est Glom Filt Rate - Afr Amer 70 mL/min (>60); Glucose 122 mg/dL (74-106); Potassium 3.3 mmol/L (3.5-5.1); Sodium Level 139 mmol/L (136-145); Thyroid Stim Hormone (TSH) 2.46 uIU/mL (0.358-3.74)
[2023-01-16 14:05] LABS: Erythrocyte Sedimentation Rate 18 mm/hr (0-30)
[2023-01-16 14:07] LABS: Absolute Lymphocyte Count 1.65 X10^3/uL (0.83-4.51); Absolute Neutrophil Count 6.2 X10^3/uL (2.0-7.7); Basophil# 0.06 X10^3/uL; Basophil% 0.7 % (0-1); Eosinophil# 0.16 X10^3/uL; Eosinophils% 1.9 % (0-5); Hematocrit 39.9 % (37-47); Hemoglobin 12.4 g/dL (12.0-15.0); Lymphocyte # 1.65 X10^3/ul (0.83-4.51); Lymphocyte % 19.1 % (19-41); Mean Corp Hgb Conc 31.1 g/dL (32-36); Mean Corpuscular Hgb 28.2 pg (27.0-32.0); Mean Corpuscular Volume 90.7 fL (81-99); Mean Platelet Vol. 11.9 fl (6.2-12.0); Monocyte# 0.57 X10^3/uL; Monocyte% 6.6 % (0-10); NRBC Flagged by Analyzer 0 % (0-5); Neutrophil # 6.16 X10^3/uL (2.7-7.7); Neutrophil % 71.5 % (47-70); Platelet Count 320 K/mm3 (150-450); RBC Distribution Width CV 14.2 % (11.6-14.6); RBC Distribution Width SD 47.5 fl (35.1-43.9); White Blood Count 8.6 K/mm3 (4.4-11.0)
[2023-01-16 15:31] LABS: M R Staph aureus DNA By PCR Negative (Negative); Probe Check PASS; Specimen Processing Control PASS; Staph aureus DNA By PCR NEGATIVE (Negative)
== END | disposition home or self-care (01) ==
LOC: LAB.FUTURE 01-17 11:33 → POLAB3 01-17 11:34
PROVIDERS: PCP Family Medicine Geriatric Medicine; Referring Provider Family Medicine Geriatric Medicine; Visit Provider Family Medicine Geriatric Medicine
DX: E03.9 Hypothyroidism, unspecified (principal); S81.802A Unspecified open wound, left lower leg, initial encounter; B95.62 Methicillin resistant Staphylococcus aureus infection as the cause of diseases classified elsewhere
CPT/HCPCS: 36415; 80048; 84443; 85025; 85652; 86140; 87070; 87205; 87640

== ENCOUNTER 2023-01-22 14:00 | Outpatient (RCR) | payer MEDICARE, SELFPAY ==
[2019-10-26 12:20] VITALS: BMI 27.8
[2023-01-21 09:43] VITALS: BP 178/87; PULSE 80; RESP 16; TEMP 35.8; BMI 26.6
--- NOTE | 2023-01-21 18:30 | PCM.WC.HP ---
History of Present Illness Date of Service: 01/21/23 Chief Complaint: Traumatic wound of the left lateral calf History of Wound: This is an 87-year-old female who presents with a traumatic wound on the left lateral calf. 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 She was evaluated by medical personnel the following day, where cultures were obtained. Cultures were positive for coagulase negative staph, thought likely to be skin contamination. More recently, the patient has been prescribed doxycycline and cephalexin, which she continues to take currently. She has been treated on 2 recent occasions at the wound center in [place], [place]. She has been using Medihoney topically on a daily basis. She also experiences swelling in her lower extremities, and has been prescribed Tubigrip's which she wears daily. The patient lives alone. There are family members nearby to assist her in her daily needs. The patient is not very active. She claims to sleep on a flat mattress at night. She sits a good part of each day. The patient denies a history of thrombophlebitis. [facility] Medical History Anemia Arthritis Arthritis Atherosclerosis of coronary 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 Atherosclerosis of coronary artery of [place] heart without angina pectoris Chronic diastolic (congestive) heart failure Chronic venous insufficiency DDD (degenerative disc disease), lumbar Degenerative disc disease, lumbar Diabetes mellitus Diabetes mellitus type 2 in nonobese Essential (primary) hypertension Fibromyalgia GERD (gastroesophageal reflux disease) History of non-ST elevation myocardial infarction (NSTEMI) (02/02/19) History of TIA (transient ischemic attack) History of TIA (transient ischemic attack) HLD (hyperlipidemia) Hypothyroidism Hypothyroidism Incomplete right bundle branch block Intervertebral disc stenosis of neural canal of lumbar region Left leg swelling Leg edema Legionnaires' disease Old age 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 myocardial infarction Overweight (BMI 25.0-29.9) Pacemaker Paroxysmal atrial fibrillation Paroxysmal supraventricular tachycardia Paroxysmal supraventricular tachycardia Peripheral vascular disease PVD (peripheral vascular disease) Reactive arthritis Traumatic open wound of left lower leg with delayed healing Type 2 diabetes mellitus without complications UGI bleed (10/22/18) Venous insufficiency Home Medications nitroglycerin 0.4 mg sublingual tablet 0.4 mg sublingual Q5M PRN Chest Pain 12/21/13 [History Last Taken 01/31/19] apixaban 5 mg tablet (Eliquis) 5 mg PO BID #60 tabs 05/09/22 [Rx Last Taken Unknown] furosemide 40 mg tablet 40 mg PO DAILY water pill #90 tabs 05/09/22 [Rx Last Taken Unknown] pantoprazole 40 mg tablet,delayed release 40 mg PO DAILY #90 tabs 05/09/22 [Rx Last Taken Unknown] potassium chloride 20 mEq tablet,extended release(part/cryst) 20 meq PO DAILY SUPPLEMENT #90 tabs 05/09/22 [Rx Last Taken Unknown] levothyroxine 25 mcg tablet 88 mcg PO DAILY 06/11/22 [History Last Taken Unknown] rosuvastatin 40 mg tablet 40 mg PO DAILY #90 tabs 06/11/22 [Rx Last Taken Unknown] spironolactone 25 mg tablet 25 mg PO DAILY #90 tabs 06/11/22 [Rx Last Taken Unknown] aspirin 81 mg tablet,delayed release 81 mg PO DAILY 01/21/23 [History Last Taken Unknown] clopidogrel 75 mg tablet 75 mg PO DAILY 01/21/23 [History Last Taken Unknown] insulin glargine U-300 conc 300 unit/mL (3 mL) subcutaneous pen (Toujeo Max U-300 SoloStar) 45 unit subcut BID 01/21/23 [History Last Taken Unknown] insulin lispro 100 unit/mL subcutaneous pen (Humalog KwikPen (U-100) Insulin) 10 unit subcut DAILY 01/21/23 [History Last Taken Unknown] metoprolol succinate 50 mg capsule sprinkle, ext. release 24 hr 50 mg PO DAILY 01/21/23 [History Last Taken Unknown] vitamin B complex 1 tab PO DAILY 01/21/23 [History Last Taken Unknown] Allergy/AdvReac Type Severity Reaction Status Date / Time No Known Allergies Allergy Verified 06/11/22 10:05 Family History Mother Colon cancer Mother Heart disease Surgical History H/O coronary artery bypass surgery (09/08/92) History bilateral cataract surgery History of coronary artery stent placement (02/03/19) History of hemorrhoidectomy History of laparoscopic cholecystectomy History of loop recorder (11/08/19) Social History Smoking Status: Former smoker alcohol intake: current alcohol intake frequency: holidays/special occasions only substance use type: does not use caffeine: No what type of physical activity do you participate in: none Vital Signs Vital Signs Vital Signs: 01/21/23 09:43 Temperature 96.5 F L Temperature Source Temporal Pulse Rate 80 Respiratory Rate 16 Blood Pressure 178/87 H Blood Pressure Mean 117 Blood Pressure Source Monitor Blood Pressure Position Sitting Blood Pressure Location Left Arm Oxygen Delivery Method Room Air Weight Weight: 155 lb Body Mass Index (BMI) 26.6 Physical Exam Const alert, oriented x3, no apparent distress, average body habitus and well nourished General Appearance: cooperative, comfortable, well kempt and well developed Orientation / Consciousness: awake, oriented to person, oriented to place and oriented to time Exam Limitations: no limitations HEENT normocephalic and head/scalp atraumatic Head and Scalp: normal to inspection, normocephalic and atraumatic External Ear: external ears normal Eyes PERRL and EOMs intact bilaterally General Eye: normal appearance of both eyes Resp normal respiratory effort, normal air movement, no retractions and no use of accessory muscles Effort and Inspection: able to speak in complete sentences Extremity no calf tenderness General Extremity: Negative for clubbing or cyanosis Skin Wound Narrative: A traumatic wound is noted on the patient's left lateral calf. Dimensions are documented elsewhere. There is no evidence of infection or cellulitis. There is a moderate amount of bioburden. Mild swelling and edema are noted in the patient's lower extremities bilaterally. Sharif phlebectatica is noted near the medial malleoli bilaterally. Neuro oriented x3, CN's II-XII intact bilaterally, moves all extremities, no focal motor deficits and no sensory deficits noted Sensorium / Orientation: awake, alert, oriented to person, oriented to place, oriented to time and orientation impaired Psych Appearance: grossly normal and appropriate Attitude: calm Activity / Motor Behavior: appropriate eye contact Speech: normal speech Mood & Affect: euthymic mood Thought Process: normal thought process Thought Content: normal thought content Attention / Concentration: attention grossly intact Debridement Note Debridement Note Wound debrided: Traumatic left lateral calf wound Laterality: Left Type of Debridement: Excisional debridement Anesthesia Used: 5% Lidocaine Gel Depth: Down to and including healthy tissue and in the subcutaneous layer Percentage of wound debrided: 100 Instrument Used: 5mm curette Severity: Fat Layer Exposed Amount of bleeding with debridement: Mild Bleeding Controlled with: Compression and gauze Patient tolerated procedure: Patient tolerated procedure well Post-Debridement Measurements and Additional Note: Post-Debridement Measurements/Treatment WC - Nurse 1 - General Ulcer Assessment Start: 01/21/23 09:43 Freq: Status: Active Protocol: ANNA Activity Type Activity Date Activity User E-sign Co-sign Detail Recorded Client Recorded Date Recorded By Document 01/21/23 09:43 MW [id number] 01/21/23 10:16 MW 01/21/23 09:43 WC - Today's Visit Information Type of service Initial Visit Arrival Mode Ambulatory Transfer Assistance None Accompanied by daughter Patient Identification Verified (Name & Yes ) Patient Requires Transmission-Based No Precautions Safety Precautions Fall Prevention Height and Weight Height 5 ft 4 in Weight 155 lb Weight in Pounds 155.0 lbs Body Mass Index (BMI) 26.6 BMI Classification Overweight BSA - Jennifer 1.76 Vital Signs Temperature (97.8 F-99.1 F) 96.5 F L Temperature Source Temporal Pulse Rate (60-100) 80 Pulse Location Monitor Respiratory Rate (12-18) 16 Respiratory rate source Observation Oxygen Delivery Method Room Air Blood Pressure (90/60-120/80) 178/87 H Blood Pressure Mean 117 Source Monitor Position Sitting Blood Pressure Location Left Arm History Since Last Visit- (Skip if this is Patient's initial visit) Left Footwear Regular Shoe Right Footwear Regular Shoe Pain Scale: 0-10 Numeric Is Patient Pain Free? Yes Lower Extremity Assessment/ Foot Assessment/ Toe Nail Assessment Right -Popliteal Doppler Monophasic -Posterior Tibial Palpable No -Posterior Tibial Doppler Monophasic -Dorsalis Pedis Palpable No -Dorsalis Pedis Doppler Monophasic -Hair Growth on Legs No -Hair Growth on Toes No -Temperature of Extremity Warm -Capillary Refill Less than 3 Seconds -Dependent Rubor No -Blanched when Elevated No -Lipodermatosclerosis No -Other Deformity No -Prior Foot Ulcer No -Charcot Joint No -Prior Amputation No -Thick Yes -Discolored No -Deformed No -Improper Length & Hygeine No Left -Posterior Tibial Palpable No -Posterior Tibial Doppler Monophasic -Dorsalis Pedis Palpable No -Dorsalis Pedis Doppler Monophasic -Extremity Color Normal -Hair Growth on Legs No -Hair Growth on Toes No -Temperature of Extremity Warm -Capillary Refill Less than 3 Seconds -Dependent Rubor No -Blanched when Elevated No -Lipodermatosclerosis No -Other Deformity No -Prior Foot Ulcer No -Charcot Joint No -Prior Amputation No -Thick Yes -Discolored No -Deformed No -Improper Length & Hygeine No Neuropathy Assessment Feet - Top Side and Bottom <Entered> (a) Communication Assessment Preferred language Mongolian Disbursing Agent Required No Able to Read Yes Able to Write Yes Communication Tools None Caregiver Communication Skills No Impairment Impairment Right Hearing Abillity Normal Left Hearing Abillity Normal Visual Assistive Devices Glasses Teaching Assessment Preferences Verbal,Written, Audio/Visual, Demonstration Barriers to Learning None Readiness To Learn Excellent Willingness to Engage in Self Management High Activies Readiness to Engage in Self Management High Activities Anxiety Level Calm Cooperation Cooperative Perception Coherent Interest in Health Problem Asks Questions Education Importance Acknowledges Need Does Patient Smoke tobacco or other No substances Smoking Status Former smoker Is Patient Diabetic Yes Functional Assessment Recent Decline in Ability to Perform Denies Any Declines Assistive Device With Patient No Culture/Islam/Operations Support Coordinator Cultural/Islam Needs that may affect No Treatment Plan Operations Support Coordinator to contact place of episcopal No Teaching: Wound Center *Welcome to the Wound Center -Person Taught Patient -Teaching Method Discussion -Response to teaching Verbalize understanding (a) 1 - - WC - Nurse 1 - General Ulcer Measurement Start: 01/21/23 09:43 Freq: Status: Active Protocol: Activity Type Activity Date Activity User E-sign Co-sign Detail Recorded Client Recorded Date Recorded By Document 01/21/23 09:43 MW [id number] 01/21/23 10:16 MW 01/21/23 09:43 Wound Center Nurse 1 #4 left lateral LE -Combined with other wound No -Current Size (cm) - Length 3.6 -Current Size (cm) - Width 2.6 -Current Size (cm) - Depth 0.1 -Total Square Cm 9.36 -Date of Last Picture (Recall this 01/21/23 field) -Photo Taken Yes -Epithelialization None Present -Tunneling No -Circular Undermining No -Exudate Amt Medium -Exudate Type Serosanguineous -Wound Margin Flat & Intact -Granulation Amt None Present (0 %) -Granulation Quality N/A -Slough/Fibrin Yes -Necrosis Amt Large (67-100%) -Necrotic Tissue Type Adherent Slough -Structure Exposed N/A -Texture (Alessia-wound Skin Appearance) Assessed, Localized Edema -Moisture (Alessia-wound Skin Appearance) Assessed,Dry/ Scaly -Color (Alessia-wound Skin Appearance) No Abnormality, Assessed -Temperature (Alessia-wound Skin No Abnormality Appearance) (Pt Warm) -Tenderness on Palpation (Alessia-wound No Skin Appearance) -Ulcer Cleansing Rinsed/ Irrigated with Saline -Foul Odor after Cleansing No -Anesthetic Used 5% Lidocaine Gel Lower Limb Edema Present Yes Right Calf (cm) 37.3 Right Ankle (cm) 28.3 Left Calf (cm) 37.0 Left Ankle (cm) 27.3 WC - Nurse 2 - General Ulcer CM Notes Start: 01/21/23 09:43 Freq: Status: Active Protocol: Activity Type Activity Date Activity User E-sign Co-sign Detail Recorded Client Recorded Date Recorded By Document 01/21/23 12:14 PL [id number] 01/21/23 12:16 PL 01/21/23 12:14 Wound Center Nurse 2 #4 left lateral LE -Time 10:36 -Correct Patient Yes -Correct Side, Site, Position Yes -Correct Procedure Yes -Procedure Performed Yes -Type of Procedure Debridement -Clinical Debridement Subcutaneous -Tissue Removed Subcutaneous -Post Debridement (cm) - Length 3.6 -Post Debridement (cm) - Width 2.6 -Post Debridement (cm) - Depth 0.1 -Total Square (Post) (cm) 9.36 -Area of Debridement (cm) - Length 3.6 -Area of Debridement (cm) - Width 2.6 -Total Square (Area) (cm) 9.36 -Tunneling No -Undermining/Tunneling No -Circular Undermining No -Wound/Ulcer Outcome Not Healed -Ulcer Cleansing Rinsed/ Irrigated with Saline -Foul Odor after Cleansing No -Bioengineered Tissue No -Bleeding Controlled with Pressure -Treatment Response Procedure Tolerated Well -Debridement - Subq, 1st 20sq cm Yes Pain Scale: 0-10 Numeric Is Patient Pain Free? Yes WC - Nurse 3 - General Ulcer D/C NN Start: 01/21/23 09:43 Freq: Status: Active Protocol: Activity Type Activity Date Activity User E-sign Co-sign Detail Recorded Client Recorded Date Recorded By Document 01/21/23 10:54 MW [id number] 01/21/23 10:56 MW 01/21/23 10:54 Wound Care Center Nurse 3 #4 left lateral LE -Ulcer Cleansing Wound Cleanser -Foul Odor after Cleansing No -Negative Pressure Wound Therapy N/A -Primary Dressing Applied Promogran, Mepilex Border -Mepilex Border 1 -Promogran 1 Treatment Response Procedure Tolerated Well Pain Scale: 0-10 Numeric Is Patient Pain Free? Yes Teaching: Wound Center Dressing Your Wound -Person Taught Patient,Family -Teaching Method Discussion -Response to teaching Verbalize understanding WC - Visit Discharge Discharge Condition Stable Ambulatory Status Ambulatory Transportation Private Auto Accompanied by daughter Medication Reconcilliation completed & No provided to patient/care provider Clinical Summary of Care Provided Yes Assessment/Plan Assessment/Plan (1) Traumatic open wound of left lower leg with delayed healing: CODE(S): S81.802D - Unspecified open wound, left lower leg, subsequent encounter (2) Left leg swelling: CODE(S): M79.89 - Other specified soft tissue disorders (3) Leg edema: CODE(S): R60.0 - Localized edema (4) Diabetes mellitus: CODE(S): E11.9 - Type 2 diabetes mellitus without complications (5) Chronic venous insufficiency: CODE(S): I87.2 - Venous insufficiency (chronic) (peripheral) (6) Peripheral vascular disease: CODE(S): I73.9 - Peripheral vascular disease, unspecified (7) Paroxysmal atrial fibrillation: CODE(S): I48.0 - Paroxysmal atrial fibrillation (8) Atherosclerosis of coronary artery of [place] heart without angina pectoris: CODE(S): I25.10 - Atherosclerotic heart disease of [place] coronary artery without angina pectoris (9) 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 myocardial infarction: CODE(S): I25.2 - Old myocardial infarction (10) H/O coronary artery bypass surgery: CODE(S): Z95.1 - Presence of aortocoronary bypass graft (11) History of non-ST elevation myocardial infarction (NSTEMI): CODE(S): I25.2 - Old myocardial infarction (12) History of coronary artery stent placement: CODE(S): Z95.5 - Presence of coronary angioplasty implant and graft (13) Chronic diastolic (congestive) heart failure: CODE(S): I50.32 - Chronic diastolic (congestive) heart failure (14) Essential (primary) hypertension: CODE(S): I10 - Essential (primary) hypertension (15) HLD (hyperlipidemia): CODE(S): E78.5 - Hyperlipidemia, unspecified QUALIFIERS: Qualified Code(s): E78.0 - Pure hypercholesterolemia (16) Incomplete right bundle branch block: CODE(S): I45.10 - Unspecified right bundle-branch block (17) Paroxysmal supraventricular tachycardia: CODE(S): I47.1 - Supraventricular tachycardia (18) Paroxysmal supraventricular tachycardia: CODE(S): I47.1 - Supraventricular tachycardia (19) Arthritis: CODE(S): M19.90 - Unspecified osteoarthritis, unspecified site (20) GERD (gastroesophageal reflux disease): CODE(S): K21.9 - Gastro-esophageal reflux disease without esophagitis (21) Hypothyroidism: CODE(S): E03.9 - Hypothyroidism, unspecified (22) Degenerative disc disease, lumbar: CODE(S): M51.36 - Other intervertebral disc degeneration, lumbar region (23) History of TIA (transient ischemic attack): CODE(S): Z86.73 - Personal history of transient ischemic attack (TIA), and cerebral infarction without residual deficits (24) Pacemaker: CODE(S): Z95.0 - Presence of cardiac pacemaker (25) Old age: CODE(S): R54 - Age-related physical debility PLAN: Plan This is an 87-year-old female who presents with a traumatic wound on the left lateral calf, which has been present for over 4 weeks. It has failed to heal appropriately. The patient is currently using Medihoney topically on a daily basis. She also experiences chronic swelling in her lower extremities. She is not very active. She sleeps on a flat mattress at night. However, she spends a good part of each day in an idle sitting position. The patient lives alone. However, she has family members who live close by and are able to render assistance with daily needs. We are to seek assistance with home health nursing care for comanagement of the patient's traumatic wound. We are to implement the use of Promogran which will be applied topically on a daily basis. The patient and her daughter, at the bedside, have been instructed in the appropriate means of application. Patient has been encouraged to elevate her lower extremities, remain as active as tolerated, and to minimize the amount of time she spends sitting. We are to continue the use of Tubigrip's to the lower extremities bilaterally on a daily basis. The patient has been encouraged to optimize her nutritional intake. Optimization of the patient's glycemic control has also been encouraged. Because the patient complains of foot pain, which she claims limits her ability to ambulate, we are to refer the patient to Podiatry for evaluation in this regard. We are to obtain a noninvasive lower extremity arterial study, to evaluate the arterial circulation in the lower extremities. We are also to obtain a hemoglobin A1c. Otherwise, recently obtained on January 16, 2023, with results as follows: White blood count 8.6, hemoglobin 12.4, hematocrit 39.9, platelets 320,000, ESR 18, potassium 3.3, sodium 139, chloride 111, BUN 20, creatinine 0.98, glucose 122, calcium 9.5, C-reactive protein less than 2.9, TSH 2.46. An x-ray of the left leg on January 16, 2023, revealed no acute findings. A noninvasive lower extremity arterial study performed in March 2020 revealed evidence of small vessel arterial occlusive disease bilaterally. The patient is to follow-up on an outpatient basis in 1 week. Total time: 55 minutes
--- NOTE | 2023-01-22 12:49 | ART_ITS ---
Reason For Study: Non Healing Wound Procedure A bilateral lower extremity continuous wave Doppler with analog waveform analysis,segmental pressures,and ankle brachial indexes without exercise. Left Segmental Pressures Left brachial= 150mmHg. Left thigh = 218mmHg. Left calf = 164mmHg. Left posterior tibial artery = 121mmHg. Left dorsalis pedis artery = 132mmHg. The left posterior tibial artery waveforms are biphasic. The left dorsalis pedis waveforms are biphasic. Right Segmental Pressures Right brachial= 154mmHg. Right thigh = 189mmHg. Right calf = 151mmHg. Right posterior tibial artery = 117mmHg. Right dorsalis pedis artery = 120mmHg. The right posterior tibial artery waveforms are biphasic. The right dorsalis pedis waveforms are biphasic. Indices The right ankle brachial index by the posterior tibial artery is 0.76. The right ankle brachial index by the dorsalis pedis is 0.78. unable to acquire right toe pressure due to involuntary movements. The left ankle brachial index by the posterior tibial artery is 0.79. The left ankle brachial index by the dorsalis pedis is 0.86. unable to acquire left toe pressure due to involuntary movements. VL/Lower Ext Art Exam w/o Exercis Interpretation Summary Biphasic Doppler waveforms are noted at ankle level bilaterally. Pulse-volume r ecordings appear diminished at digital level bilaterally, but satisfactory at low thigh, calf, a nd ankle levels bilaterally. The resting right ankle-brachial index is moderately diminished. T he resting left ankle-brachial index is mildly diminished. There is evidence of moderate arterial occlusive disease at ankle level on the right. There is evidence of mild arterial occlusive disease at ankle level on the left. Ordering Physician: Felice Faulkner Referring Physician: Brian Degroot Chi Performed By: Emmanuel Ferrara RVT
[2023-01-22 13:56] LABS: Hemoglobin A1c 7.4 % (3.8-5.6)
[2023-01-27 12:41] LABS: Bedside Glucose 96 mg/dL (74-106)
== END 2023-01-26 23:59 | disposition home or self-care (01) ==
LOC: WC 14:00
PROVIDERS: PCP Family Medicine Geriatric Medicine; Referring Provider Family Medicine Geriatric Medicine; Visit Provider Surgery
DX: E11.51 Type 2 diabetes mellitus with diabetic peripheral angiopathy without gangrene (principal); L97.222 Non-pressure chronic ulcer of left calf with fat layer exposed; I11.0 Hypertensive heart disease with heart failure; I50.32 Chronic diastolic (congestive) heart failure; E11.40 Type 2 diabetes mellitus with diabetic neuropathy, unspecified; I48.0 Paroxysmal atrial fibrillation; Z79.4 Long term (current) use of insulin; E03.9 Hypothyroidism, unspecified; I87.2 Venous insufficiency (chronic) (peripheral); I25.10 Atherosclerotic heart disease of native coronary artery without angina pectoris; Z95.0 Presence of cardiac pacemaker; Z79.01 Long term (current) use of anticoagulants; Z87.891 Personal history of nicotine dependence; E78.00 Pure hypercholesterolemia, unspecified; K21.9 Gastro-esophageal reflux disease without esophagitis; Z95.5 Presence of coronary angioplasty implant and graft; M19.90 Unspecified osteoarthritis, unspecified site; Z79.899 Other long term (current) drug therapy; Z79.890 Hormone replacement therapy; Z79.02 Long term (current) use of antithrombotics/antiplatelets; S81.802S Unspecified open wound, left lower leg, sequela; X58.XXXS Exposure to other specified factors, sequela
CPT/HCPCS: 11042; 36415; 82962; 83036; 93923; 99213; G0463

== ENCOUNTER 2023-01-28 10:25 | Outpatient (RCR) | payer MEDICARE, SELFPAY ==
[2019-10-26 12:20] VITALS: BMI 27.8
[2023-01-28 00:06] VITALS: BP 178/87; PULSE 80; RESP 16; TEMP 35.8; BMI 26.6
[2023-01-28 10:27] VITALS: BP 163/69; PULSE 85; RESP 20; TEMP 36.4; BMI 26.6
--- NOTE | 2023-01-28 11:12 | PCM.WC.HP ---
History of Present Illness Date of Service: 01/28/23 Chief Complaint: Traumatic wound of the left lateral calf History of Wound: This is an 87-year-old female who presented with a traumatic wound on the left lateral calf. She injured herself on December 16, 2022, as a result of tripping over her vacuum gut cleaner. She was evaluated by medical personnel the following day, where cultures were obtained. Cultures were positive for coagulase negative staph, thought likely to be skin contamination. More recently, the patient was prescribed doxycycline and cephalexin. She had been treated on 2 recent occasions at the wound center in [place], [place]. She had been using Medihoney topically on a daily basis. She also experiences swelling in her lower extremities, and has been prescribed Tubigrip's which she wears daily. The patient lives alone. There are family members nearby to assist her in her daily needs. The patient is not very active. She claims to sleep on a flat mattress at night. She sits a good part of each day. The patient denies a history of thrombophlebitis. [facility] Medical History (Updated 01/28/23 @ 11:[address] Felice Faulkner MD) Anemia Arthritis Arthritis Atherosclerosis of coronary 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 Atherosclerosis of coronary artery of [place] heart without angina pectoris Chronic diastolic (congestive) heart failure Chronic venous insufficiency DDD (degenerative disc disease), lumbar Degenerative disc disease, lumbar Diabetes mellitus Diabetes mellitus type 2 in nonobese Essential (primary) hypertension Fibromyalgia GERD (gastroesophageal reflux disease) History of non-ST elevation myocardial infarction (NSTEMI) (02/02/19) History of TIA (transient ischemic attack) History of TIA (transient ischemic attack) HLD (hyperlipidemia) Hypothyroidism Hypothyroidism Incomplete right bundle branch block Intervertebral disc stenosis of neural canal of lumbar region Left leg swelling Leg edema 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 Old age 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 myocardial infarction Overweight (BMI 25.0-29.9) Pacemaker Paroxysmal atrial fibrillation Paroxysmal supraventricular tachycardia Paroxysmal supraventricular tachycardia Peripheral vascular disease PVD (peripheral vascular disease) Reactive arthritis Traumatic open wound of left lower leg with delayed healing Type 2 diabetes mellitus without complications UGI bleed (10/22/18) Venous insufficiency Home Medications nitroglycerin 0.4 mg sublingual tablet 0.4 mg sublingual Q5M PRN Chest Pain 12/21/13 [History Last Taken 01/31/19] apixaban 5 mg tablet (Eliquis) 5 mg PO BID #60 tabs 05/09/22 [Rx Last Taken Unknown] furosemide 40 mg tablet 40 mg PO DAILY water pill #90 tabs 05/09/22 [Rx Last Taken Unknown] pantoprazole 40 mg tablet,delayed release 40 mg PO DAILY #90 tabs 05/09/22 [Rx Last Taken Unknown] potassium chloride 20 mEq tablet,extended release(part/cryst) 20 meq PO DAILY SUPPLEMENT #90 tabs 05/09/22 [Rx Last Taken Unknown] levothyroxine 25 mcg tablet 88 mcg PO DAILY 06/11/22 [History Last Taken Unknown] rosuvastatin 40 mg tablet 40 mg PO DAILY #90 tabs 06/11/22 [Rx Last Taken Unknown] spironolactone 25 mg tablet 25 mg PO DAILY #90 tabs 06/11/22 [Rx Last Taken Unknown] aspirin 81 mg tablet,delayed release 81 mg PO DAILY 01/21/23 [History Last Taken Unknown] clopidogrel 75 mg tablet 75 mg PO DAILY 01/21/23 [History Last Taken Unknown] insulin glargine U-300 conc 300 unit/mL (3 mL) subcutaneous pen (Toujeo Max U-300 SoloStar) 45 unit subcut BID 01/21/23 [History Last Taken Unknown] insulin lispro 100 unit/mL subcutaneous pen (Humalog KwikPen (U-100) Insulin) 10 unit subcut DAILY 01/21/23 [History Last Taken Unknown] metoprolol succinate 50 mg capsule sprinkle, ext. release 24 hr 50 mg PO DAILY 01/21/23 [History Last Taken Unknown] vitamin B complex 1 tab PO DAILY 01/21/23 [History Last Taken Unknown] Allergy/AdvReac Type Severity Reaction Status Date / Time No Known Allergies Allergy Verified 06/11/22 10:05 Family History Mother Colon cancer Mother Heart disease Surgical History H/O coronary artery bypass surgery (09/08/92) History bilateral cataract surgery History of coronary artery stent placement (02/03/19) History of hemorrhoidectomy History of laparoscopic cholecystectomy History of loop recorder (11/08/19) Social History Smoking Status: Former smoker alcohol intake: current alcohol intake frequency: holidays/special occasions only substance use type: does not use caffeine: No what type of physical activity do you participate in: none Vital Signs Vital Signs Vital Signs: 01/28/23 10:27 01/28/23 00:06 Temperature 97.5 F L 96.5 F L Temperature Source Temporal Pulse Rate 85 80 Respiratory Rate 20 H 16 Blood Pressure 163/69 H 178/87 H Blood Pressure Mean 100 117 Blood Pressure Source Monitor Blood Pressure Location Left Arm Weight Weight: 155 lb Body Mass Index (BMI) 26.6 Physical Exam Const alert, oriented x3, no apparent distress, average body habitus and well nourished General Appearance: cooperative, comfortable, well kempt and well developed Orientation / Consciousness: awake, oriented to person, oriented to place and oriented to time Exam Limitations: no limitations HEENT normocephalic and head/scalp atraumatic Head and Scalp: normal to inspection, normocephalic and atraumatic External Ear: external ears normal Eyes PERRL and EOMs intact bilaterally General Eye: normal appearance of both eyes Resp normal respiratory effort, normal air movement, no retractions and no use of accessory muscles Effort and Inspection: able to speak in complete sentences Extremity no calf tenderness General Extremity: Negative for clubbing or cyanosis Skin Wound Narrative: A traumatic wound is noted on the patient's left lateral calf. Dimensions are documented elsewhere. There is no evidence of infection or cellulitis. There is a moderate amount of bioburden. Mild swelling and edema are noted in the patient's lower extremities bilaterally. Sharif phlebectatica is noted near the medial malleoli bilaterally. Neuro oriented x3, CN's II-XII intact bilaterally, moves all extremities, no focal motor deficits and no sensory deficits noted Sensorium / Orientation: awake, alert, oriented to person, oriented to place, oriented to time and orientation impaired Psych Appearance: grossly normal and appropriate Attitude: calm Activity / Motor Behavior: appropriate eye contact Speech: normal speech Mood & Affect: euthymic mood Thought Process: normal thought process Thought Content: normal thought content Attention / Concentration: attention grossly intact Debridement Note Debridement Note Wound debrided: Traumatic left lateral calf wound Laterality: Left Type of Debridement: Excisional debridement Anesthesia Used: 5% Lidocaine Gel Depth: Down to and including healthy tissue and in the subcutaneous layer Percentage of wound debrided: 100 Instrument Used: 5mm curette Severity: Fat Layer Exposed Amount of bleeding with debridement: Mild Bleeding Controlled with: Compression and gauze Patient tolerated procedure: Patient tolerated procedure well Post-Debridement Measurements and Additional Note: Post-Debridement Measurements/Treatment ZAHRA - Nurse 1 - General Ulcer Assessment Start: 01/28/23 10:27 Freq: Status: Active Protocol: ANNA Activity Type Activity Date Activity User E-sign Co-sign Detail Recorded Client Recorded Date Recorded By Document 01/28/23 10:27 DL [id number] 01/28/23 10:35 DL 01/28/23 10:27 ZAHRA - Today's Visit Information Type of service Follow-up Visit (Physician/OPERATIONS RESEARCH ANALYST ) Arrival Mode Ambulatory Transfer Assistance None Patient Identification Verified (Name & Yes ) Patient Requires Transmission-Based No Precautions Height and Weight Body Mass Index (BMI) 26.6 BMI Classification Overweight Vital Signs Temperature (97.8 F-99.1 F) 97.5 F L Temperature Source Temporal Pulse Rate (60-100) 85 Pulse Location Monitor Respiratory Rate (12-18) 20 H Respiratory rate source Observation Blood Pressure (90/60-120/80) 163/69 H Blood Pressure Mean 100 Source Monitor History Since Last Visit- (Skip if this is Patient's initial visit) Have you changed medications since your No last visit? Any new allergies or adverse reactions No Had a fall/change in ADL's that may No increase risk of falls Signs or symptoms of abuse and/or No neglect since last visit Have you been in the hospital since your No last visit? Has dressing in place as prescribed Yes Has compression in place as prescribed No Has offloadiing in place as prescribed N/A Experienced any changes in pain level or No management Pain Scale: 0-10 Numeric Is Patient Pain Free? Yes ZAHRA - Nurse 1 - General Ulcer Measurement Start: 01/28/23 10:27 Freq: Status: Active Protocol: Activity Type Activity Date Activity User E-sign Co-sign Detail Recorded Client Recorded Date Recorded By Document 01/28/23 10:27 DL [id number] 01/28/23 10:35 DL 01/28/23 10:27 Wound Center Nurse 1 #4 left lateral LE -Current Size (cm) - Length 3.4 -Current Size (cm) - Width 1.9 -Current Size (cm) - Depth 0.1 -Total Square Cm 6.46 -Photo Taken Yes -Exudate Amt Medium -Exudate Type Serosanguineous -Wound Margin Distinct, Outline Attached -Granulation Amt Medium (34-66%) -Granulation Quality [place] -Necrosis Amt Medium (34-66%) -Necrotic Tissue Type Adherent Slough -Structure Exposed N/A -Texture (Alessia-wound Skin Appearance) Scarring -Moisture (Alessia-wound Skin Appearance) No Abnormality -Color (Alessia-wound Skin Appearance) Hemosiderin Staining -Temperature (Alessia-wound Skin No Abnormality Appearance) (Pt Warm) -Tenderness on Palpation (Alessia-wound No Skin Appearance) -Ulcer Cleansing Soap and Water -Foul Odor after Cleansing No -Anesthetic Used 5% Lidocaine Gel Left Calf (cm) 36.5 Left Ankle (cm) 28.7 WC - Nurse 3 - General Ulcer D/C NN Start: 01/28/23 10:27 Freq: Status: Active Protocol: Activity Type Activity Date Activity User E-sign Co-sign Detail Recorded Client Recorded Date Recorded By Document 01/28/23 11:06 MW [id number] 01/28/23 11:07 MW 01/28/23 11:06 Wound Care Center Nurse 3 #4 left lateral LE -Ulcer Cleansing Rinsed/ Irrigated with Saline -Foul Odor after Cleansing No -Negative Pressure Wound Therapy N/A -Primary Dressing Applied Promogran, Mepilex Border -Mepilex Border 1 -Promogran 1 Treatment Response Procedure Tolerated Well Pain Scale: 0-10 Numeric Is Patient Pain Free? Yes Teaching: Wound Center Compression Wraps & Stockings -Person Taught Patient,Family -Teaching Method Discussion, Demonstration -Response to teaching Verbalize understanding Dressing Your Wound -Person Taught Patient,Family -Teaching Method Discussion, Demonstration -Response to teaching Verbalize understanding WC - Visit Discharge Discharge Condition Stable Ambulatory Status Ambulatory Transportation Private Auto Accompanied by son Medication Reconcilliation completed & No provided to patient/care provider Clinical Summary of Care Provided Yes Assessment/Plan Assessment/Plan (1) Non-pressure chronic ulcer of left calf with fat layer exposed: CODE(S): L97.222 - Non-pressure chronic ulcer of left calf with fat layer exposed (2) Traumatic open wound of left lower leg with delayed healing: CODE(S): S81.802D - Unspecified open wound, left lower leg, subsequent encounter (3) Left leg swelling: CODE(S): M79.89 - Other specified soft tissue disorders (4) Leg edema: CODE(S): R60.0 - Localized edema (5) Diabetes mellitus: CODE(S): E11.9 - Type 2 diabetes mellitus without complications (6) Chronic venous insufficiency: CODE(S): I87.2 - Venous insufficiency (chronic) (peripheral) (7) Peripheral vascular disease: CODE(S): I73.9 - Peripheral vascular disease, unspecified (8) Paroxysmal atrial fibrillation: CODE(S): I48.0 - Paroxysmal atrial fibrillation (9) Atherosclerosis of coronary artery of [place] heart without angina pectoris: CODE(S): I25.10 - Atherosclerotic heart disease of [place] coronary artery without angina pectoris (10) 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 myocardial infarction: CODE(S): I25.2 - Old myocardial infarction (11) H/O coronary artery bypass surgery: CODE(S): Z95.1 - Presence of aortocoronary bypass graft (12) History of non-ST elevation myocardial infarction (NSTEMI): CODE(S): I25.2 - Old myocardial infarction (13) History of coronary artery stent placement: CODE(S): Z95.5 - Presence of coronary angioplasty implant and graft (14) Chronic diastolic (congestive) heart failure: CODE(S): I50.32 - Chronic diastolic (congestive) heart failure (15) Essential (primary) hypertension: CODE(S): I10 - Essential (primary) hypertension (16) HLD (hyperlipidemia): CODE(S): E78.5 - Hyperlipidemia, unspecified QUALIFIERS: Qualified Code(s): E78.0 - Pure hypercholesterolemia (17) Incomplete right bundle branch block: CODE(S): I45.10 - Unspecified right bundle-branch block (18) Paroxysmal supraventricular tachycardia: CODE(S): I47.1 - Supraventricular tachycardia (19) Paroxysmal supraventricular tachycardia: CODE(S): I47.1 - Supraventricular tachycardia (20) Arthritis: CODE(S): M19.90 - Unspecified osteoarthritis, unspecified site (21) GERD (gastroesophageal reflux disease): CODE(S): K21.9 - Gastro-esophageal reflux disease without esophagitis (22) Hypothyroidism: CODE(S): E03.9 - Hypothyroidism, unspecified (23) Degenerative disc disease, lumbar: CODE(S): M51.36 - Other intervertebral disc degeneration, lumbar region (24) History of TIA (transient ischemic attack): CODE(S): Z86.73 - Personal history of transient ischemic attack (TIA), and cerebral infarction without residual deficits (25) Pacemaker: CODE(S): Z95.0 - Presence of cardiac pacemaker (26) Old age: CODE(S): R54 - Age-related physical debility PLAN: Plan This is an 87-year-old female who presented with a traumatic wound on the left lateral calf, which had been present for over 4 weeks. It has failed to heal appropriately. The patient was using Medihoney topically on a daily basis. She also experiences chronic swelling in her lower extremities. She is not very active. She sleeps on a flat mattress at night. However, she spends a good part of each day in an idle sitting position. The patient lives alone. However, she has family members who live close by and are able to render assistance with daily needs. Her son accompanies her to the visit today. We are to seek assistance with home health nursing care for comanagement of the patient's traumatic wound. We are to continue the use of Promogran which will be applied topically on a daily basis. The patient and her son, at the bedside, have been instructed in the appropriate means of application. The patient has been encouraged to elevate her lower extremities, remain as active as tolerated, and to minimize the amount of time she spends sitting. We are to continue the use of Tubigrip's to the lower extremities bilaterally on a daily basis. The patient has been encouraged to optimize her nutritional intake. Optimization of the patient's glycemic control has also been encouraged. Hemoglobin A1c obtained on January 22, 2023, was 7.4. Because the patient complains of foot pain, which she claims limits her ability to ambulate, we are to refer the patient to Podiatry for evaluation in this regard. 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 Recent laboratory testing was obtained on January 16, 2023, with results as follows: White blood count 8.6, hemoglobin 12.4, hematocrit 39.9, platelets 320,000, ESR 18, potassium 3.3, sodium 139, chloride 111, BUN 20, creatinine 0.98, glucose 122, calcium 9.5, C-reactive protein less than 2.9, TSH 2.46. An x-ray of the left leg on January 16, 2023, revealed no acute findings. The patient is to follow-up on an outpatient basis in 1 week. Total time: 26 minutes
== END 2023-02-25 23:59 | disposition home or self-care (01) ==
LOC: WC 10:25
PROVIDERS: PCP Family Medicine Geriatric Medicine; Referring Provider Family Medicine Geriatric Medicine; Visit Provider Surgery
DX: L97.222 Non-pressure chronic ulcer of left calf with fat layer exposed (principal); E11.51 Type 2 diabetes mellitus with diabetic peripheral angiopathy without gangrene; I11.0 Hypertensive heart disease with heart failure; I50.32 Chronic diastolic (congestive) heart failure; E11.59 Type 2 diabetes mellitus with other circulatory complications; I48.0 Paroxysmal atrial fibrillation; I47.1 Supraventricular tachycardia; Z79.4 Long term (current) use of insulin; Z80.0 Family history of malignant neoplasm of digestive organs; Z87.891 Personal history of nicotine dependence; I25.10 Atherosclerotic heart disease of native coronary artery without angina pectoris; Z95.5 Presence of coronary angioplasty implant and graft; K21.9 Gastro-esophageal reflux disease without esophagitis; E78.00 Pure hypercholesterolemia, unspecified; Z79.01 Long term (current) use of anticoagulants; I87.2 Venous insufficiency (chronic) (peripheral); E03.9 Hypothyroidism, unspecified; I45.10 Unspecified right bundle-branch block; Z95.0 Presence of cardiac pacemaker; M19.90 Unspecified osteoarthritis, unspecified site; M51.36 Other intervertebral disc degeneration, lumbar region; M79.89 Other specified soft tissue disorders; S81.802D Unspecified open wound, left lower leg, subsequent encounter; I25.2 Old myocardial infarction; Z95.1 Presence of aortocoronary bypass graft; Z86.73 Personal history of transient ischemic attack (TIA), and cerebral infarction without residual deficits; R54 Age-related physical debility
CPT/HCPCS: 11042

== ENCOUNTER 2023-02-08 11:27 | Emergency (ER) | payer MEDICARE, SELFPAY ==
[2019-10-26 12:20] VITALS: BMI 27.8
[2023-02-08 11:30] VITALS: BP 117/73; PULSE 93; RESP 20; TEMP 36.7; O2SAT 100; BMI 28.1
--- NOTE | 2023-02-08 11:49 | EKG12_ITS ---
Test Reason : gi Blood Pressure : / mmHG Vent. Rate : 079 BPM Atrial Rate : 079 BPM P-R Int : 136 ms QRS Dur : 126 ms QT Int : 402 ms P-R-T Axes : 023 -55 010 degrees QTc Int : 460 ms Sinus rhythm with marked sinus arrhythmia Left axis deviation Right bundle branch block Inferior infarct , age undetermined Abnormal ECG Confirmed by ALEX CORONA, PRIYANKA ([id number]), research editor SAMIA NATH ([id number]) on 02/10/2023 11:28:27 A M Referred By: Confirmed By:МАРИНА JOHNSON MD
--- NOTE | 2023-02-08 11:51 | EX.ED.DYSGE1 ---
HPI <VICKY Soria - Last Filed: 02/08/23 19:53> History of Present Illness Chief Complaint: General Illness Narrative Narrative: Patient presenting today due to a diaphoretic episode that occurred yesterday and today. She states that yesterday she was sleeping on the couch and noticed when she woke up her back was really sweaty. This morning, she woke up and noticed that her back was,dripping in sweat. She states that she, feels off but is not sure why. Denies any fever, chills, chest pain, shortness of breath, abdominal pain, nausea, vomiting. She does have a right-sided red eye and denies eye pain, her vision is intact, and she denies any trauma/feeling of a foreign body to her eye. She reports a history of anxiety and states she does feel anxious because she wants to know what is going on with her. PFS <VICKY Soria - Last Filed: 02/08/23 19:53> [facility] Medical History Anemia Arthritis Arthritis Atherosclerosis of coronary 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 Atherosclerosis of coronary artery of [place] without angina pectoris Chronic diastolic (congestive) heart failure Chronic venous insufficiency DDD (degenerative disc disease), lumbar Degenerative disc disease, lumbar Diabetes mellitus Diabetes mellitus type 2 in nonobese Essential (primary) hypertension Fibromyalgia GERD (gastroesophageal reflux disease) History of non-ST elevation myocardial infarction (NSTEMI) (02/02/19) History of TIA (transient ischemic attack) History of TIA (transient ischemic attack) HLD (hyperlipidemia) Hypothyroidism Hypothyroidism Incomplete right bundle branch block Intervertebral disc stenosis of neural canal of lumbar region Left leg swelling Leg edema 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 Old age 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 myocardial infarction Overweight (BMI 25.0-29.9) Pacemaker Paroxysmal atrial fibrillation Paroxysmal supraventricular tachycardia Paroxysmal supraventricular tachycardia Peripheral vascular disease PVD (peripheral vascular disease) Reactive arthritis Traumatic open wound of left lower leg with delayed healing Type 2 diabetes mellitus without complications UGI bleed (10/22/18) Venous insufficiency Home Medications nitroglycerin 0.4 mg sublingual tablet 0.4 mg sublingual Q5M PRN Chest Pain 12/21/13 [History Last Taken 01/31/19] apixaban 5 mg tablet (Eliquis) 5 mg PO BID #60 tabs 05/09/22 [Rx Last Taken Unknown] furosemide 40 mg tablet 40 mg PO DAILY water pill #90 tabs 05/09/22 [Rx Last Taken Unknown] pantoprazole 40 mg tablet,delayed release 40 mg PO DAILY #90 tabs 05/09/22 [Rx Last Taken Unknown] potassium chloride 20 mEq tablet,extended release(part/cryst) 20 meq PO DAILY SUPPLEMENT #90 tabs 05/09/22 [Rx Last Taken Unknown] levothyroxine 25 mcg tablet 88 mcg PO DAILY 06/11/22 [History Last Taken Unknown] rosuvastatin 40 mg tablet 40 mg PO DAILY #90 tabs 06/11/22 [Rx Last Taken Unknown] spironolactone 25 mg tablet 25 mg PO DAILY #90 tabs 06/11/22 [Rx Last Taken Unknown] aspirin 81 mg tablet,delayed release 81 mg PO DAILY 01/21/23 [History Last Taken Unknown] clopidogrel 75 mg tablet 75 mg PO DAILY 01/21/23 [History Last Taken Unknown] insulin glargine U-300 conc 300 unit/mL (3 mL) subcutaneous pen (Toujeo Max U-300 SoloStar) 45 unit subcut BID 01/21/23 [History Last Taken Unknown] insulin lispro 100 unit/mL subcutaneous pen (Humalog KwikPen (U-100) Insulin) 10 unit subcut DAILY 01/21/23 [History Last Taken Unknown] metoprolol succinate 50 mg capsule sprinkle, ext. release 24 hr 50 mg PO DAILY 01/21/23 [History Last Taken Unknown] vitamin B complex 1 tab PO DAILY 01/21/23 [History Last Taken Unknown] Allergy/AdvReac Type Severity Reaction Status Date / Time No Known Allergies Allergy Verified 02/08/23 11:29 Family History Mother Colon cancer Mother Heart disease Surgical History H/O coronary artery bypass surgery (09/08/92) History bilateral cataract surgery History of coronary artery stent placement (02/03/19) History of hemorrhoidectomy History of laparoscopic cholecystectomy History of loop recorder (11/08/19) Social History Smoking Status: Former smoker alcohol intake: current alcohol intake frequency: holidays/special occasions only substance use type: does not use caffeine: No what type of physical activity do you participate in: none ROS <VICKY Soria - Last Filed: 02/08/23 19:53> ROS ED Constitutional Constitutional ED: Reports sweats; Denies chills or fever(s) Eyes Eyes: Denies blurry vision, change in vision or diplopia Cardiovascular Cardiovascular: Denies chest pain or palpitations Respiratory/Chest Respiratory/Chest: Denies cough, dyspnea, tachypnea or wheezing Gastrointestinal Gastrointestinal: Denies abdominal pain, nausea or vomiting Genitourinary Genitourinary ED: Denies dysuria, hematuria or urinary urgency Musculoskeletal Musculoskeletal: Denies arthralgias or myalgias Integumentary Denies abscess, Abrasions or rash Neurologic Neurologic: Denies confusion, dizziness or weakness Psychiatric Psychiatric: Reports anxiety; Denies depression, suicidal ideation or suicidal thoughts EXAM <VICKY Soria - Last Filed: 02/08/23 19:53> Physical Exam Const Vital Signs: 02/08/23 11:30 02/08/23 11:33 02/08/23 13:34 Temperature 98.1 F Temperature Source Oral Pulse Rate 93 83 Respiratory Rate 20 H 25 H Respiratory Effort Normal Non-Labored Respiratory Pattern Normal Blood Pressure 117/73 158/114 H Blood Pressure Mean 87 128 Pulse Ox 100 100 Oxygen Delivery Method Room Air Room Air 02/08/23 13:54 02/08/23 15:08 Temperature Temperature Source Pulse Rate 87 Respiratory Rate 18 Respiratory Effort Respiratory Pattern Blood Pressure 154/63 H 148/93 H Blood Pressure Mean 93 111 Pulse Ox 100 Oxygen Delivery Method Room Air Positive well nourished, well developed and no apparent distress General Appearance ED: well developed HEENT Reports normocephalic and head/scalp atraumatic Mouth ED: Yes moist mucous membranes normal Eyes PERRL and EOMs intact bilaterally Eyes Narrative: Right-sided subconjunctival hemorrhage. Neck full ROM and supple Chest Wall inspection of chest normal Resp normal respiratory effort and clear to auscultation bilaterally Cardio regular rate and regular rhythm GI soft to palpation, non-tender, non-distended and no masses Back/Spine normal ROM and normal to inspection Extremity normal to inspection and full ROM Neuro oriented x3, CN's II-XII intact bilaterally, moves all extremities, no focal motor deficits and no sensory deficits noted Sensorium / Orientation: awake and alert Psych mental status grossly normal and thought process normal Skin no rashes or lesions noted and no wounds <Dr. Camille Vivar DO - Last Filed: 02/08/23 14:21> Physical Exam Const Vital Signs: 02/08/23 11:30 02/08/23 11:33 02/08/23 13:34 Temperature 98.1 F Temperature Source Oral Pulse Rate 93 83 Respiratory Rate 20 H 25 H Respiratory Effort Normal Non-Labored Respiratory Pattern Normal Blood Pressure 117/73 158/114 H Blood Pressure Mean 87 128 Pulse Ox 100 100 Oxygen Delivery Method Room Air Room Air 02/08/23 13:54 02/08/23 15:08 Temperature Temperature Source Pulse Rate 87 Respiratory Rate 18 Respiratory Effort Respiratory Pattern Blood Pressure 154/63 H 148/93 H Blood Pressure Mean 93 111 Pulse Ox 100 Oxygen Delivery Method Room Air MDM <VICKY Soria - Last Filed: 02/08/23 19:53> [facility] Narrative Medical decision making narrative: Patient presenting due to 2 episodes of diaphoresis that have occurred between yesterday and today. She is well-appearing and in no acute distress, she is not diaphoretic here. She does have an extensive cardiac history, therefore labs to be obtained to rule out ACS. Labs also be obtained to rule out leukocytosis, anemia, electrolyte abnormality, SALONI. Labs overall are unremarkable. Chest x-ray obtained to rule out infiltrate, pleural effusion, pneumothorax and is negative for any acute findings. UA obtained to rule out a UTI and is negative. She does have a right-sided subconjunctival hemorrhage, she denies any trauma to her eye, pain to her eye, pain with eye movements, and her visual acuity is intact. On reexamination, she reports she feels anxious and sweaty again, clinically, she does not look diaphoretic. She has been given a small dose of Ativan. On reexamination she reports she feels better and would like to go home. Her work-up is essentially unremarkable. I feel that her symptoms can be attributed to anxiety. She will be discharged home in stable condition and is to follow-up with her PCP. She is comfortable with plan. I have personally performed a face to face assessment of the patient and have reviewed the MAREK Note. I performed a substantive portion of the visit including all aspects of the following. My espinoza findings include: History is [patient presents to the emergency department with complaint of diaphoresis x2 days. She initially had an episode yesterday where she fell asleep on the couch when she woke up her back was sopping wet. Patient otherwise does not feel poorly. Patient denies chest pain or shortness of breath. She denied recent illness. She denies urinary symptoms. She denies rashes. She has been eating and drinking normally. Today she had another episode when she woke up this morning she noted that her back was wet.] Exam is [HEENT-PERRLA, EOMI. Cranial nerves II through XII grossly intact. TMs clear. Mucous membranes moist. No adenopathy. Cardiovascular-regular rate and rhythm without murmur or ectopy Lungs-clear to auscultation, chest wall stable without crepitus or subcu emphysema Abdomen-normoactive bowel sounds, soft, nontender, no rebound or rigidity, no peritoneal signs. Extremities-intact ?4, normal range of motion, normal pulses, atraumatic] Medical Decison Making [patient had significant work-up including EKG and lab work-up as well as urinalysis and all was normal. Etiology for her back diaphoresis is unclear. Clinically she looks well. I feel she can be safely discharged home. Patient to follow-up with her primary care physician within next 3 to 5 days.] Other additions or changes: [None] Lab Data Lab results narrative: CBC unremarkable, GFR 58, glucose 168, UA negative for UTI Labs: Laboratory Results - last 24 hr 02/08/23 02/08/23 02/08/23 11:20 11:20 13:17 WBC 10.1 RBC 4.61 Hgb 13.0 Hct 41.8 MCV 90.7 MCH 28.2 MCHC 31.1 L RDW Std Deviation 46.6 H RDW Coeff of Miko 13.9 Plt Count 333 MPV 11.6 Immature Gran % (Auto) 0.700 Neut % (Auto) 77.5 H Lymph % (Auto) 15.6 L [place] % (Auto) 5.1 Eos % (Auto) 0.2 Baso % (Auto) 0.9 Absolute Neuts (auto) 7.8 H Absolute Lymphs (auto) 1.57 Nucleated RBC % 0 Sodium 142 Potassium 3.7 Chloride 108 H Carbon Dioxide 27.0 Anion Gap 7 BUN 16 Creatinine 0.97 Estim Creat Clear Calc 36.62 Est GFR (MDRD) Af Amer 70 Est GFR (MDRD) Non-Af 58 L BUN/Creatinine Ratio 16.5 Glucose 168 H Calcium 9.3 Troponin I High Sens 21 Urine Color Yellow Urine Clarity Clear Urine pH 6.0 Ur Specific [place] 1.015 Urine Protein 30 H Urine Glucose (UA) 50 H Urine Ketones Negative Urine Occult Blood Negative Urine Nitrite Negative Urine Bilirubin Negative Urine Urobilinogen Normal Ur Leukocyte Esterase 25 H Urine RBC 0 SEEN Urine WBC 0-5 SEEN Ur Squamous Epith Cells 5-10 SEEN Urine Bacteria 0 SEEN Urine Mucus 0 SEEN Radiography Diagnostic Testing: Clinical Impression(s) from Imaging Studies Chest X-Ray 02/08/23 12:00 IMPRESSION: No acute pulmonary process Electronically Signed: Walker Carrillo MD at 12:28 EDT Reading Location ID and State: [address] [place] [address] , Service support , EKG Initial EKG: Comments: 79 bpm, sinus rhythm with right bundle branch block, no ST elevation, read and interpreted by attending ED physician <Dr. Camille Vivar, DO - Last Filed: 02/08/23 14:21> [facility] Narrative Medical decision making narrative: Patient presenting due to 2 episodes of diaphoresis that have occurred between yesterday and today. She does have an extensive cardiac history, therefore labs to be obtained to rule out ACS. Labs also be obtained to rule out leukocytosis, anemia, electrolyte abnormality, SALONI. Chest x-ray obtained to rule out infiltrate, pleural effusion, pneumothorax. UA obtained to rule out a UTI. She does have a right-sided subconjunctival hemorrhage, she denies any trauma to her eye, pain to her eye, pain with eye movements, and her visual acuity is intact. I have personally performed a face to face assessment of the patient and have reviewed the MAREK Note. I performed a substantive portion of the visit including all aspects of the following. My espinoza findings include: History is [patient presents to the emergency department with complaint of diaphoresis x2 days. She initially had an episode yesterday where she fell asleep on the couch when she woke up her back was sopping wet. Patient otherwise does not feel poorly. Patient denies chest pain or shortness of breath. She denied recent illness. She denies urinary symptoms. She denies rashes. She has been eating and drinking normally. Today she had another episode when she woke up this morning she noted that her back was wet.] Exam is [HEENT-PERRLA, EOMI. Cranial nerves II through XII grossly intact. TMs clear. Mucous membranes moist. No adenopathy. Cardiovascular-regular rate and rhythm without murmur or ectopy Lungs-clear to auscultation, chest wall stable without crepitus or subcu emphysema Abdomen-normoactive bowel sounds, soft, nontender, no rebound or rigidity, no peritoneal signs. Extremities-intact ?4, normal range of motion, normal pulses, atraumatic] Medical Decison Making [patient had significant work-up including EKG and lab work-up as well as urinalysis and all was normal. Etiology for her back diaphoresis is unclear. Clinically she looks well. I feel she can be safely discharged home. Patient to follow-up with her primary care physician within next 3 to 5 days.] Other additions or changes: [None] Lab Data Attestation: I reviewed the patient's lab results. Labs: Laboratory Results - last 24 hr 02/08/23 02/08/23 02/08/23 11:20 11:20 13:17 WBC 10.1 RBC 4.61 Hgb 13.0 Hct 41.8 MCV 90.7 MCH 28.2 MCHC 31.1 L RDW Std Deviation 46.6 H RDW Coeff of Miko 13.9 Plt Count 333 MPV 11.6 Immature Gran % (Auto) 0.700 Neut % (Auto) 77.5 H Lymph % (Auto) 15.6 L [place] % (Auto) 5.1 Eos % (Auto) 0.2 Baso % (Auto) 0.9 Absolute Neuts (auto) 7.8 H Absolute Lymphs (auto) 1.57 Nucleated RBC % 0 Sodium 142 Potassium 3.7 Chloride 108 H Carbon Dioxide 27.0 Anion Gap 7 BUN 16 Creatinine 0.97 Estim Creat Clear Calc 36.62 Est GFR (MDRD) Af Amer 70 Est GFR (MDRD) Non-Af 58 L BUN/Creatinine Ratio 16.5 Glucose 168 H Calcium 9.3 Troponin I High Sens 21 Urine Color Yellow Urine Clarity Clear Urine pH 6.0 Ur Specific [place] 1.015 Urine Protein 30 H Urine Glucose (UA) 50 H Urine Ketones Negative Urine Occult Blood Negative Urine Nitrite Negative Urine Bilirubin Negative Urine Urobilinogen Normal Ur Leukocyte Esterase 25 H Urine RBC 0 SEEN Urine WBC 0-5 SEEN Ur Squamous Epith Cells 5-10 SEEN Urine Bacteria 0 SEEN Urine Mucus 0 SEEN Radiography Diagnostic Testing: Clinical Impression(s) from Imaging Studies Chest X-Ray 02/08/23 12:00 IMPRESSION: No acute pulmonary process Electronically Signed: Walker Carrillo MD at 12:28 EDT Reading Location ID and State: [facility] / [place] , Service support , 1 view chest x-ray obtained interpreted by myself no acute disease process. No evidence of infiltrate or pneumothorax or acute process. Radiology in agreement. EKG Initial EKG: Attestation: I personally reviewed and interpreted this EKG as follows: Discharge Plan Triage Chief Complaint: General Illness ED Midlevel Provider: Agatha Whitaker ED Provider: Camille Vivar Dx/Rx/DC Orders Clinical Impression: Diaphoresis, Anxiety, Subconjunctival hemorrhage of right eye Prescriptions: No Action levothyroxine 25 mcg tablet 88 mcg PO DAILY Label Comments: take 1 tablet by mouth once daily Rx Instructions: take with 50 mcg to equal 75 mcg rosuvastatin 40 mg tablet 40 mg PO DAILY Qty: 90 3RF spironolactone 25 mg tablet 25 mg PO DAILY Qty: 90 3RF nitroglycerin 0.4 MG tablet 0.4 mg SUBLINGUAL Q5M PRN (Reason: Chest Pain) clopidogrel 75 mg Tablet 75 mg PO DAILY aspirin [Aspir-81] 81 mg Tablet,Delayed Release (Dr/Ec) 81 mg PO DAILY vitamin B complex [Super B Complex] Tablet 1 tab PO DAILY insulin lispro [Humalog KwikPen Insulin] 100 unit/mL Insulin Pen 10 unit SUBCUT DAILY metoprolol succinate 50 mg Capsule,Sprinkle,Er 24hr 50 mg PO DAILY Toujeo Max U-300 SoloStar 300 unit/mL (3 mL) Insulin Pen 45 unit SUBCUT BID furosemide 40 mg tablet 40 mg PO DAILY Qty: 90 3RF potassium chloride 20 mEq tablet,ER particles/crystals 20 meq PO DAILY Qty: 90 3RF pantoprazole 40 mg tablet,delayed release (DR/EC) 40 mg PO DAILY Qty: 90 3RF Rx Instructions: Take at bedtime, due to levothyroxine in AM Eliquis 5 mg tablet 5 mg PO BID Qty: 60 4RF Primary Care Provider: Brian Degroot Chi Referrals: Brian Degroot Chi, MD [Primary Care Provider] - 3-5 Days Activity Restrictions/Additional Instructions: Please follow-up with your PCP, return for any worsening of your symptoms. Disposition Disposition: Home, Self Care Discharge Date/Time: 02/08/23 15:20
--- NOTE | 2023-02-08 12:00 | RAD_ITS ---
STUDY: X-RAY CHEST REASON FOR EXAM: Female, 87 years old. Fever and cough TECHNIQUE: Single AP portable view of the chest. COMPARISON: None. FINDINGS: EKG leads overlie the chest The lungs are clear and expanded. There is no demonstrated pleural abnormality. Sternal cerclage wires and vascular clips are present from a prior sternotomy and coronary artery bypass graft procedure (CABG). Normal mediastinum and norma. Normal visualized pulmonary arteries. Normal visualized aortic arch and descending thoracic aorta. There are diffuse degenerative changes of the visualized thoracic spine. There is degenerative osteoarthritis of the bilateral shoulders. There is no demonstrated abnormality of the visualized soft tissue structures of the upper abdomen. RAD/Chest 1 View (Portable) IMPRESSION: No acute pulmonary process Electronically Signed: Walker Carrillo MD at 12:28 EDT ,
[2023-02-08 12:04] LABS: Absolute Lymphocyte Count 1.57 X10^3/uL (0.83-4.51); Absolute Neutrophil Count 7.8 X10^3/uL (2.0-7.7); Basophil# 0.09 X10^3/uL; Basophil% 0.9 % (0-1); Eosinophil# 0.02 X10^3/uL; Eosinophils% 0.2 % (0-5); Hematocrit 41.8 % (37-47); Lymphocyte # 1.57 X10^3/ul (0.83-4.51); Lymphocyte % 15.6 % (19-41); Mean Corp Hgb Conc 31.1 g/dL (32-36); Mean Corpuscular Hgb 28.2 pg (27.0-32.0); Mean Corpuscular Volume 90.7 fL (81-99); Mean Platelet Vol. 11.6 fl (6.2-12.0); Monocyte# 0.51 X10^3/uL; Monocyte% 5.1 % (0-10); NRBC Flagged by Analyzer 0 % (0-5); Neutrophil # 7.83 X10^3/uL (2.7-7.7); Neutrophil % 77.5 % (47-70); Platelet Count 333 K/mm3 (150-450); RBC Distribution Width CV 13.9 % (11.6-14.6); RBC Distribution Width SD 46.6 fl (35.1-43.9); Red Blood Count 4.61 M/mm3 (4.2-5.4); White Blood Count 10.1 K/mm3 (4.4-11.0)
[2023-02-08 12:19] LABS: Anion Gap 7 (5-15); BUN 16 mg/dL (7-18); BUN/Creat Ratio 16.5 RATIO (10-20); Calcium,Total 9.3 mg/dL (8.5-10.1); Chloride 108 mmol/L (98-107); Creatinine, Serum 0.97 mg/dL (0.55-1.02); EST Glomerular Filtration Rate 58 mL/min (>60); Est Glom Filt Rate - Afr Amer 70 mL/min (>60); Estimated Creatinine Clearance 36.62 ml/min; Glucose 168 mg/dL (74-106); Potassium 3.7 mmol/L (3.5-5.1); Sodium Level 142 mmol/L (136-145); Troponin-I HS 21 pg/mL (3.0-54.0)
[2023-02-08 13:30] LABS: Bacteria 0 SEEN /hpf (None Seen); Mucous, Urine 0 SEEN /hpf (<or=2+); Red Blood Cells-Urine 0 SEEN /hpf (0-5)
[2023-02-08 13:34] VITALS: BP 158/114; PULSE 83; RESP 25; O2SAT 100
[2023-02-08 13:54] VITALS: BP 154/63; PULSE 87; RESP 18; O2SAT 100
[2023-02-08 13:56] LABS: Color, Urine Yellow (Yellow); Glucose, Dipstick 50 mg/dl (Normal); Ketone-Dipstick Negative (Negative); Leukocyte Esterase-Dipstick 25 /ul (Negative); Nitrite-Dipstick Negative (Negative); Occult Blood-Urine Negative /ul (Negative); Protein-Dipstick 30 mg/dl (Negative); Specific Gravity, Urine 1.015 (1.002-1.030); Urine Bilirubin Dipstick Negative (Negative); Urine Clarity Clear (Clear); Urine Urobilinogen Normal (Normal)
[2023-02-08 14:09] LABS: White Blood Cells 0-5 SEEN /hpf (0-5)
[2023-02-08 14:10] LABS: Squamous Epithelial Cells - UA 5-10 SEEN /hpf (5-10)
[2023-02-08] MEDS: LORazepam 2 MG/ML Syringe 0.5 MG IV (14:46)
[2023-02-08 15:08] VITALS: BP 148/93
== END 2023-02-08 15:20 | disposition home or self-care (01) ==
PROVIDERS: Physician Assistant; Emergency Provider Emergency Medicine; PCP Family Medicine Geriatric Medicine; Visit Provider Emergency Medicine
DX: R61 Generalized hyperhidrosis (principal); E11.51 Type 2 diabetes mellitus with diabetic peripheral angiopathy without gangrene; I11.0 Hypertensive heart disease with heart failure; I50.32 Chronic diastolic (congestive) heart failure; I48.0 Paroxysmal atrial fibrillation; Z79.4 Long term (current) use of insulin; F41.9 Anxiety disorder, unspecified; H11.31 Conjunctival hemorrhage, right eye; I25.10 Atherosclerotic heart disease of native coronary artery without angina pectoris; E78.5 Hyperlipidemia, unspecified; Z95.1 Presence of aortocoronary bypass graft; Z95.5 Presence of coronary angioplasty implant and graft; Z79.02 Long term (current) use of antithrombotics/antiplatelets; Z79.82 Long term (current) use of aspirin; Z79.899 Other long term (current) drug therapy; Z86.73 Personal history of transient ischemic attack (TIA), and cerebral infarction without residual deficits; Z87.891 Personal history of nicotine dependence
CPT/HCPCS: 71045; 80048; 81001; 84484; 85025; 93005; 96374; 99285

== ENCOUNTER 2023-02-18 10:45 | Outpatient (RCR) | payer MEDICARE, SELFPAY ==
[2019-10-26 12:20] VITALS: BMI 27.8
[2023-02-04 10:51] VITALS: BP 155/84; PULSE 80; RESP 16; TEMP 36.3
--- NOTE | 2023-02-04 11:55 | PCM.WC.HP ---
History of Present Illness Date of Service: 02/04/23 Chief Complaint: Traumatic wound of the left lateral calf History of Wound: This is an 87-year-old female who presented with a traumatic wound on the left lateral calf. She injured herself on December 16, 2022, as a result of tripping over her vacuum cleaner window. She was evaluated by medical personnel the following day, where cultures were obtained. Cultures were positive for coagulase negative staph, thought likely to be skin contamination. More recently, the patient was prescribed doxycycline and cephalexin. She had been treated on 2 recent occasions at the wound center in [place], [place]. She had been using Medihoney topically on a daily basis. She also experiences swelling in her lower extremities, and has been prescribed Tubigrip's which she wears daily. The patient lives alone. There are family members nearby to assist her in her daily needs. The patient is not very active. She claims to sleep on a flat mattress at night. She sits a good part of each day. The patient denies a history of thrombophlebitis. [facility]LY [facility] Medical History Anemia Arthritis Arthritis Atherosclerosis of coronary 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 Atherosclerosis of coronary artery of [place] heart without angina pectoris Chronic diastolic (congestive) heart failure Chronic venous insufficiency DDD (degenerative disc disease), lumbar Degenerative disc disease, lumbar Diabetes mellitus Diabetes mellitus type 2 in nonobese Essential (primary) hypertension Fibromyalgia GERD (gastroesophageal reflux disease) History of non-ST elevation myocardial infarction (NSTEMI) (02/02/19) History of TIA (transient ischemic attack) History of TIA (transient ischemic attack) HLD (hyperlipidemia) Hypothyroidism Hypothyroidism Incomplete right bundle branch block Intervertebral disc stenosis of neural canal of lumbar region Left leg swelling Leg edema 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 Old age 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 myocardial infarction Overweight (BMI 25.0-29.9) Pacemaker Paroxysmal atrial fibrillation Paroxysmal supraventricular tachycardia Paroxysmal supraventricular tachycardia Peripheral vascular disease PVD (peripheral vascular disease) Reactive arthritis Traumatic open wound of left lower leg with delayed healing Type 2 diabetes mellitus without complications UGI bleed (10/22/18) Venous insufficiency Home Medications nitroglycerin 0.4 mg sublingual tablet 0.4 mg sublingual Q5M PRN Chest Pain 12/21/13 [History Last Taken 01/31/19] apixaban 5 mg tablet (Eliquis) 5 mg PO BID #60 tabs 05/09/22 [Rx Last Taken Unknown] furosemide 40 mg tablet 40 mg PO DAILY water pill #90 tabs 05/09/22 [Rx Last Taken Unknown] pantoprazole 40 mg tablet,delayed release 40 mg PO DAILY #90 tabs 05/09/22 [Rx Last Taken Unknown] potassium chloride 20 mEq tablet,extended release(part/cryst) 20 meq PO DAILY SUPPLEMENT #90 tabs 05/09/22 [Rx Last Taken Unknown] levothyroxine 25 mcg tablet 88 mcg PO DAILY 06/11/22 [History Last Taken Unknown] rosuvastatin 40 mg tablet 40 mg PO DAILY #90 tabs 06/11/22 [Rx Last Taken Unknown] spironolactone 25 mg tablet 25 mg PO DAILY #90 tabs 06/11/22 [Rx Last Taken Unknown] aspirin 81 mg tablet,delayed release 81 mg PO DAILY 01/21/23 [History Last Taken Unknown] clopidogrel 75 mg tablet 75 mg PO DAILY 01/21/23 [History Last Taken Unknown] insulin glargine U-300 conc 300 unit/mL (3 mL) subcutaneous pen (Toujeo Max U-300 SoloStar) 45 unit subcut BID 01/21/23 [History Last Taken Unknown] insulin lispro 100 unit/mL subcutaneous pen (Humalog KwikPen (U-100) Insulin) 10 unit subcut DAILY 01/21/23 [History Last Taken Unknown] metoprolol succinate 50 mg capsule sprinkle, ext. release 24 hr 50 mg PO DAILY 01/21/23 [History Last Taken Unknown] vitamin B complex 1 tab PO DAILY 01/21/23 [History Last Taken Unknown] Allergy/AdvReac Type Severity Reaction Status Date / Time No Known Allergies Allergy Verified 06/11/22 10:05 Family History Mother Colon cancer Mother Heart disease Surgical History H/O coronary artery bypass surgery (09/08/92) History bilateral cataract surgery History of coronary artery stent placement (02/03/19) History of hemorrhoidectomy History of laparoscopic cholecystectomy History of loop recorder (11/08/19) Social History Smoking Status: Former smoker alcohol intake: current alcohol intake frequency: holidays/special occasions only substance use type: does not use caffeine: No what type of physical activity do you participate in: none Vital Signs Vital Signs Vital Signs: 02/04/23 10:51 Temperature 97.4 F L Temperature Source Temporal Pulse Rate 80 Respiratory Rate 16 Blood Pressure 155/84 H Blood Pressure Mean 107 Blood Pressure Source Monitor Blood Pressure Position Sitting Blood Pressure Location Left Arm Oxygen Delivery Method Room Air Physical Exam Const alert, oriented x3, no apparent distress, average body habitus and well nourished General Appearance: cooperative, comfortable, well kempt and well developed Orientation / Consciousness: awake, oriented to person, oriented to place and oriented to time Exam Limitations: no limitations HEENT normocephalic and head/scalp atraumatic Head and Scalp: normal to inspection, normocephalic and atraumatic External Ear: external ears normal Eyes PERRL and EOMs intact bilaterally General Eye: normal appearance of both eyes Resp normal respiratory effort, normal air movement, no retractions and no use of accessory muscles Effort and Inspection: able to speak in complete sentences Extremity no calf tenderness General Extremity: Negative for clubbing or cyanosis Skin Wound Narrative: A traumatic wound is noted on the patient's left lateral calf. Dimensions are documented elsewhere. There is no evidence of infection or cellulitis. There is a moderate amount of bioburden. Increased swelling and edema are noted in the patient's lower extremities bilaterally. Sharif phlebectatica is noted near the medial malleoli bilaterally. Neuro oriented x3, CN's II-XII intact bilaterally, moves all extremities, no focal motor deficits and no sensory deficits noted Sensorium / Orientation: awake, alert, oriented to person, oriented to place, oriented to time and orientation impaired Psych Appearance: grossly normal and appropriate Attitude: calm Activity / Motor Behavior: appropriate eye contact Speech: normal speech Mood & Affect: euthymic mood Thought Process: normal thought process Thought Content: normal thought content Attention / Concentration: attention grossly intact Debridement Note Debridement Note Wound debrided: Traumatic left lateral calf wound Laterality: Left Type of Debridement: Excisional debridement Anesthesia Used: 5% Lidocaine Gel Depth: Down to and including healthy tissue and in the subcutaneous layer Percentage of wound debrided: 100 Instrument Used: 5mm curette Severity: Fat Layer Exposed Amount of bleeding with debridement: Mild Bleeding Controlled with: Compression and gauze Patient tolerated procedure: Patient tolerated procedure well Post-Debridement Measurements and Additional Note: Post-Debridement Measurements/Treatment - Nurse 1 - General Ulcer Assessment Start: 01/28/23 11:06 Freq: Status: Active Protocol: ANNA Activity Type Activity Date Activity User E-sign Co-sign Detail Recorded Client Recorded Date Recorded By Document 02/04/23 10:51 MW [id number] 02/04/23 10:59 MW 02/04/23 10:51 WC - Today's Visit Information Type of service 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 ) Arrival Mode Ambulatory Transfer Assistance None Accompanied by daughter Patient Identification Verified (Name & Yes ) Patient Requires Transmission-Based No Precautions Safety Precautions Fall Prevention Finger Stick Blood Sugar(mg/dl) (if 103 indicated): Blood Sugar Stated by Patient Vital Signs Temperature (97.8 F-99.1 F) 97.4 F L Temperature Source Temporal Pulse Rate (60-100) 80 Pulse Location Monitor Respiratory Rate (12-18) 16 Respiratory rate source Observation Oxygen Delivery Method Room Air Blood Pressure (90/60-120/80) 155/84 H Blood Pressure Mean 107 Source Monitor Position Sitting Blood Pressure Location Left Arm History Since Last Visit- (Skip if this is Patient's initial visit) Have you changed medications since your No last visit? Any new allergies or adverse reactions No Had a fall/change in ADL's that may No increase risk of falls Signs or symptoms of abuse and/or No neglect since last visit Have you been in the hospital since your No last visit? Has dressing in place as prescribed Yes Has compression in place as prescribed No Has offloadiing in place as prescribed N/A Experienced any changes in pain level or No management Left Footwear Regular Shoe Right Footwear Regular Shoe Pain Scale: 0-10 Numeric Is Patient Pain Free? Yes ZAHRA Snider Nurse 1 - General Ulcer Measurement Start: 01/28/23 11:06 Freq: Status: Active Protocol: Activity Type Activity Date Activity User E-sign Co-sign Detail Recorded Client Recorded Date Recorded By Document 02/04/23 10:51 MW [id number] 02/04/23 10:59 MW 02/04/23 10:51 Wound Center Nurse 1 #4 left lateral LE -Combined with other wound No -Current Size (cm) - Length 2.8 -Current Size (cm) - Width 1.0 -Current Size (cm) - Depth 0.1 -Total Square Cm 2.80 -Date of Last Picture (Recall this 02/04/23 field) -Photo Taken Yes -Epithelialization Small 1-33% -Tunneling No -Undermining/Tunneling No -Circular Undermining No -Exudate Amt Medium -Exudate Type Serosanguineous -Wound Margin Flat & Intact -Granulation Amt Medium (34-66%) -Granulation Quality [place] -Slough/Fibrin Yes -Necrosis Amt Small (1-33%) -Necrotic Tissue Type Adherent Slough -Structure Exposed N/A -Texture (Alessia-wound Skin Appearance) Assessed, Localized Edema ,Scarring -Moisture (Alessia-wound Skin Appearance) Assessed,Dry/ Scaly -Color (Alessia-wound Skin Appearance) No Abnormality, Assessed -Temperature (Alessia-wound Skin No Abnormality Appearance) (Pt Warm) -Tenderness on Palpation (Alessia-wound No Skin Appearance) -Ulcer Cleansing Rinsed/ Irrigated with Saline -Foul Odor after Cleansing No -Anesthetic Used 5% Lidocaine Gel Lower Limb Edema Present Yes Left Calf (cm) 34.5 Left Ankle (cm) 25.5 WC - Nurse 3 - General Ulcer D/C NN Start: 01/28/23 11:06 Freq: Status: Active Protocol: Activity Type Activity Date Activity User E-sign Co-sign Detail Recorded Client Recorded Date Recorded By Document 02/04/23 11:29 [id number] 02/04/23 11:31 DL 02/04/23 11:29 Wound Care Center Nurse 3 #4 left lateral LE -Ulcer Cleansing Rinsed/ Irrigated with Saline -Foul Odor after Cleansing No -Primary Dressing Applied Promogran, Mepilex Border -Mepilex Border 1 -Promogran 1 Treatment Response Procedure Tolerated Well Pain Scale: 0-10 Numeric Is Patient Pain Free? Yes WC - Visit Discharge Discharge Condition Stable Ambulatory Status Ambulatory Transportation Private Auto Accompanied by family Assessment/Plan Assessment/Plan (1) Non-pressure chronic ulcer of left calf with fat layer exposed: CODE(S): L97.222 - Non-pressure chronic ulcer of left calf with fat layer exposed (2) Traumatic open wound of left lower leg with delayed healing: CODE(S): S81.802D - Unspecified open wound, left lower leg, subsequent encounter (3) Left leg swelling: CODE(S): M79.89 - Other specified soft tissue disorders (4) Leg edema: CODE(S): R60.0 - Localized edema (5) Diabetes mellitus: CODE(S): E11.9 - Type 2 diabetes mellitus without complications (6) Chronic venous insufficiency: CODE(S): I87.2 - Venous insufficiency (chronic) (peripheral) (7) Peripheral vascular disease: CODE(S): I73.9 - Peripheral vascular disease, unspecified (8) Paroxysmal atrial fibrillation: CODE(S): I48.0 - Paroxysmal atrial fibrillation (9) Atherosclerosis of coronary artery of [place] heart without angina pectoris: CODE(S): I25.10 - Atherosclerotic heart disease of [place] coronary artery without angina pectoris (10) 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 myocardial infarction: CODE(S): I25.2 - Old myocardial infarction (11) H/O coronary artery bypass surgery: CODE(S): Z95.1 - Presence of aortocoronary bypass graft (12) History of non-ST elevation myocardial infarction (NSTEMI): CODE(S): I25.2 - Old myocardial infarction (13) History of coronary artery stent placement: CODE(S): Z95.5 - Presence of coronary angioplasty implant and graft (14) Chronic diastolic (congestive) heart failure: CODE(S): I50.32 - Chronic diastolic (congestive) heart failure (15) Essential (primary) hypertension: CODE(S): I10 - Essential (primary) hypertension (16) HLD (hyperlipidemia): CODE(S): E78.5 - Hyperlipidemia, unspecified QUALIFIERS: Qualified Code(s): E78.0 - Pure hypercholesterolemia (17) Incomplete right bundle branch block: CODE(S): I45.10 - Unspecified right bundle-branch block (18) Paroxysmal supraventricular tachycardia: CODE(S): I47.1 - Supraventricular tachycardia (19) Paroxysmal supraventricular tachycardia: CODE(S): I47.1 - Supraventricular tachycardia (20) Arthritis: CODE(S): M19.90 - Unspecified osteoarthritis, unspecified site (21) GERD (gastroesophageal reflux disease): CODE(S): K21.9 - Gastro-esophageal reflux disease without esophagitis (22) Hypothyroidism: CODE(S): E03.9 - Hypothyroidism, unspecified (23) Degenerative disc disease, lumbar: CODE(S): M51.36 - Other intervertebral disc degeneration, lumbar region (24) History of TIA (transient ischemic attack): CODE(S): Z86.73 - Personal history of transient ischemic attack (TIA), and cerebral infarction without residual deficits (25) Pacemaker: CODE(S): Z95.0 - Presence of cardiac pacemaker (26) Old age: CODE(S): R54 - Age-related physical debility PLAN: Plan This is an 87-year-old female who presented with a traumatic wound on the left lateral calf, which had been present for over 4 weeks. It has failed to heal appropriately. The patient was using Medihoney topically on a daily basis. She also experiences chronic swelling in her lower extremities. She is not very active. She sleeps on a flat mattress at night. However, she spends a good part of each day in an idle sitting position. The patient lives alone. However, she has family members who live close by and are able to render assistance with daily needs. We are to continue the use of Promogran which will be applied topically on a daily basis. The patient and her family have been instructed in the appropriate means of application. The patient has been encouraged to elevate her lower extremities, remain as active as tolerated, and to minimize the amount of time she spends sitting. We are to continue the use of Tubigrip's to the lower extremities bilaterally on a daily basis. A somewhat enhanced amount of swelling is noted in the patient's lower extremities today, presumed to be due to noncompliance with recommended measures. The patient has been encouraged to optimize her nutritional intake. Optimization of the patient's glycemic control has also been encouraged. Hemoglobin A1c obtained on January 22, 2023, was 7.4. Because the patient complains of foot pain, which she claims limits her ability to ambulate, we have arranged a podiatry evaluation. The patient was evaluated by Dr. [place], and is now under his care. 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 Recent laboratory testing was obtained on January 16, 2023, with results as follows: White blood count 8.6, hemoglobin 12.4, hematocrit 39.9, platelets 320,000, ESR 18, potassium 3.3, sodium 139, chloride 111, BUN 20, creatinine 0.98, glucose 122, calcium 9.5, C-reactive protein less than 2.9, TSH 2.46. An x-ray of the left leg on January 16, 2023, revealed no acute findings. The patient is to follow-up on an outpatient basis in 2 weeks. Total time: 25 minutes
[2023-02-18 11:10] VITALS: BP 139/52; PULSE 85; RESP 16; TEMP 35.9
--- NOTE | 2023-02-18 13:47 | HP.PCM_ITS ---
History of Present Illness Date of Service: 02/18/23 Chief Complaint: Traumatic wound of the left lateral calf History of Wound: This is an 87-year-old female who presented with a traumatic wound on the left lateral calf. She injured herself on December 16, 2022, as a result of tripping over her vacuum well cleaner. She was evaluated by medical personnel the following day, where cultures were obtained. Cultures were positive for coagulase negative staph, thought likely to be skin contamination. More recently, the patient was prescribed doxycycline and cephalexin. She had been treated on 2 recent occasions at the wound center in [place], [place]. She had been using Medihoney topically on a daily basis. She also experiences swelling in her lower extremities, and has been prescribed Tubigrip's which she wears daily. The patient lives alone. There are family members nearby to assist her in her daily needs. The patient is not very active. She claims to sleep on a flat mattress at night. She sits a good part of each day. The patient denies a history of thrombophlebitis. [facility] Medical History Anemia Arthritis Arthritis Atherosclerosis of coronary 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 Atherosclerosis of coronary artery of [place] heart without angina pectoris Chronic diastolic (congestive) heart failure Chronic venous insufficiency DDD (degenerative disc disease), lumbar Degenerative disc disease, lumbar Diabetes mellitus Diabetes mellitus type 2 in nonobese Essential (primary) hypertension Fibromyalgia GERD (gastroesophageal reflux disease) History of non-ST elevation myocardial infarction (NSTEMI) (02/02/19) History of TIA (transient ischemic attack) History of TIA (transient ischemic attack) HLD (hyperlipidemia) Hypothyroidism Hypothyroidism Incomplete right bundle branch block Intervertebral disc stenosis of neural canal of lumbar region Left leg swelling Leg edema 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 Old age 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 myocardial infarction Overweight (BMI 25.0-29.9) Pacemaker Paroxysmal atrial fibrillation Paroxysmal supraventricular tachycardia Paroxysmal supraventricular tachycardia Peripheral vascular disease PVD (peripheral vascular disease) Reactive arthritis Traumatic open wound of left lower leg with delayed healing Type 2 diabetes mellitus without complications UGI bleed (10/22/18) Venous insufficiency Home Medications nitroglycerin 0.4 mg sublingual tablet 0.4 mg sublingual Q5M PRN Chest Pain 12/21/13 [History Last Taken 01/31/19] apixaban 5 mg tablet (Eliquis) 5 mg PO BID #60 tabs 05/09/22 [Rx Last Taken Unknown] furosemide 40 mg tablet 40 mg PO DAILY water pill #90 tabs 05/09/22 [Rx Last Taken Unknown] pantoprazole 40 mg tablet,delayed release 40 mg PO DAILY #90 tabs 05/09/22 [Rx Last Taken Unknown] potassium chloride 20 mEq tablet,extended release(part/cryst) 20 meq PO DAILY SUPPLEMENT #90 tabs 05/09/22 [Rx Last Taken Unknown] levothyroxine 25 mcg tablet 88 mcg PO DAILY 06/11/22 [History Last Taken Unknown] rosuvastatin 40 mg tablet 40 mg PO DAILY #90 tabs 06/11/22 [Rx Last Taken Unknown] spironolactone 25 mg tablet 25 mg PO DAILY #90 tabs 06/11/22 [Rx Last Taken Unknown] aspirin 81 mg tablet,delayed release 81 mg PO DAILY 01/21/23 [History Last Taken Unknown] clopidogrel 75 mg tablet 75 mg PO DAILY 01/21/23 [History Last Taken Unknown] insulin glargine U-300 conc 300 unit/mL (3 mL) subcutaneous pen (Toujeo Max U- 300 SoloStar) 45 unit subcut BID 01/21/23 [History Last Taken Unknown] insulin lispro 100 unit/mL subcutaneous pen (Humalog KwikPen (U-100) Insulin) 10 unit subcut DAILY 01/21/23 [History Last Taken Unknown] metoprolol succinate 50 mg capsule sprinkle, ext. release 24 hr 50 mg PO DAILY 01/21/23 [History Last Taken Unknown] vitamin B complex 1 tab PO DAILY 01/21/23 [History Last Taken Unknown] Allergy/AdvReac Type Severity Reaction Status Date / Time No Known Allergies Allergy Verified 02/08/23 11:29 Family History Mother Colon cancer Mother Heart disease Surgical History H/O coronary artery bypass surgery (09/08/92) History bilateral cataract surgery History of coronary artery stent placement (02/03/19) History of hemorrhoidectomy History of laparoscopic cholecystectomy History of loop recorder (11/08/19) Social History Smoking Status: Former smoker alcohol intake: current alcohol intake frequency: holidays/special occasions only substance use type: does not use caffeine: No what type of physical activity do you participate in: none Vital Signs Vital Signs Vital Signs: 02/18/23 11:10 Temperature 96.6 F L Temperature Source Temporal Pulse Rate 85 Respiratory Rate 16 Blood Pressure 139/52 H Blood Pressure Mean 81 Blood Pressure Source Monitor Blood Pressure Position Sitting Blood Pressure Location Right Arm Oxygen Delivery Method Room Air Physical Exam Const alert, oriented x3, no apparent distress, average body habitus and well nourished General Appearance: cooperative, comfortable, well kempt and well developed Orientation / Consciousness: awake, oriented to person, oriented to place and oriented to time Exam Limitations: no limitations HEENT normocephalic and head/scalp atraumatic Head and Scalp: normal to inspection, normocephalic and atraumatic External Ear: external ears normal Eyes PERRL and EOMs intact bilaterally General Eye: normal appearance of both eyes Resp normal respiratory effort, normal air movement, no retractions and no use of accessory muscles Effort and Inspection: able to speak in complete sentences Extremity no calf tenderness General Extremity: Negative for clubbing or cyanosis Skin Wound Narrative: A traumatic wound is noted on the patient's left lateral calf. The wound has diminished in size significantly since last evaluated. Dimensions are documented elsewhere. There is no evidence of infection or cellulitis. There is a small amount of bioburden. Sharif phlebectatica is noted near the medial malleoli bilaterally. Neuro oriented x3, CN's II-XII intact bilaterally, moves all extremities, no focal motor deficits and no sensory deficits noted Sensorium / Orientation: awake, alert, oriented to person, oriented to place, oriented to time and orientation impaired Psych Appearance: grossly normal and appropriate Attitude: calm Activity / Motor Behavior: appropriate eye contact Speech: normal speech Mood & Affect: euthymic mood Thought Process: normal thought process Thought Content: normal thought content Attention / Concentration: attention grossly intact Debridement Note Debridement Note Wound debrided: Traumatic left lateral calf wound Laterality: Left Type of Debridement: Excisional debridement Anesthesia Used: 5% Lidocaine Gel Depth: Down to and including healthy tissue and in the subcutaneous layer Percentage of wound debrided: 100 Instrument Used: 5mm curette Severity: Fat Layer Exposed Amount of bleeding with debridement: Mild Bleeding Controlled with: Compression and gauze Patient tolerated procedure: Patient tolerated procedure well Post-Debridement Measurements and Additional Note: Post-Debridement Measurements/Treatment - Nurse 1 - General Ulcer Assessment Start: 01/28/23 11:06 Freq: Status: Active Protocol: [email or web address] Activity Type Activity Date Activity User E-sign Co-sign Detail Recorded Client Recorded Date Recorded By Document 02/04/23 10:51 MW [id number] 02/04/23 10:59 MW Document 02/18/23 11:10 MW [id number] 02/18/23 11:15 MW 02/04/23 02/18/23 10:51 11:10 - Today's Visit Information Type of service Follow-up Visit Follow-up Visit (Physician/FINE GRADE OPERATOR (Physician/FINE GRADE OPERATOR ) ) Arrival Mode Ambulatory Ambulatory Transfer Assistance None None Accompanied by daughter son Patient Identification Verified (Name & Yes Yes ) Patient Requires Transmission-Based No No Precautions Safety Precautions Fall Prevention Finger Stick Blood Sugar(mg/dl) (if 103 indicated): Blood Sugar Stated by Patient Vital Signs Temperature (97.8 F-99.1 F) 97.4 F L 96.6 F L Temperature Source Temporal Temporal Pulse Rate (60-100) 80 85 Pulse Location Monitor Monitor Respiratory Rate (12-18) 16 16 Respiratory rate source Observation Observation Oxygen Delivery Method Room Air Room Air Blood Pressure (90/60-120/80) 155/84 H 139/52 H Blood Pressure Mean 107 81 Source Monitor Monitor Position Sitting Sitting Blood Pressure Location Left Arm Right Arm History Since Last Visit- (Skip if this is Patient's initial visit) Have you changed medications since your No No last visit? Any new allergies or adverse reactions No No Had a fall/change in ADL's that may No No increase risk of falls Signs or symptoms of abuse and/or No No neglect since last visit Have you been in the hospital since your No No last visit? Has dressing in place as prescribed Yes Yes Has compression in place as prescribed No N/A Has offloadiing in place as prescribed N/A N/A Experienced any changes in pain level or No No management Left Footwear Regular Shoe Regular Shoe Right Footwear Regular Shoe Regular Shoe Pain Scale: 0-10 Numeric Is Patient Pain Free? Yes No WC - Nurse 1 - General Ulcer Measurement Start: 01/28/23 11:06 Freq: Status: Active Protocol: Activity Type Activity Date Activity User E-sign Co-sign Detail Recorded Client Recorded Date Recorded By Document 02/04/23 10:51 MW [id number] 02/04/23 10:59 MW Document 02/18/23 11:10 MW [id number] 02/18/23 11:15 MW 02/04/23 02/18/23 10:51 11:10 Wound Center Nurse 1 #4 left lateral LE -Combined with other wound No No -Current Size (cm) - Length 2.8 0.4 -Current Size (cm) - Width 1.0 0.3 -Current Size (cm) - Depth 0.1 0.1 -Total Square Cm 2.80 0.12 -Date of Last Picture (Recall this 02/04/23 field) -Photo Taken Yes No -Epithelialization Small 1-33% None Present -Tunneling No No -Undermining/Tunneling No No -Circular Undermining No No -Exudate Amt Medium Small -Exudate Type Serosanguineous Serosanguineous -Wound Margin Flat & Intact Flat & Intact -Granulation Amt Medium (34-66%) None Present (0 %) -Granulation Quality Brusly Brusly -Slough/Fibrin Yes Yes -Necrosis Amt Small (1-33%) Small (1-33%) -Necrotic Tissue Type Adherent Slough -Structure Exposed N/A N/A -Texture (Alessia-wound Skin Appearance) Assessed, Assessed, Localized Edema Scarring ,Scarring -Moisture (Alessia-wound Skin Appearance) Assessed,Dry/ Assessed,Dry/ Scaly Scaly -Color (Alessia-wound Skin Appearance) No Abnormality, No Abnormality, Assessed Assessed -Temperature (Alessia-wound Skin No Abnormality No Abnormality Appearance) (Pt Warm) (Pt Warm) -Tenderness on Palpation (Alessia-wound No No Skin Appearance) -Ulcer Cleansing Rinsed/ Rinsed/ Irrigated with Irrigated with Saline Saline -Foul Odor after Cleansing No No -Anesthetic Used 5% Lidocaine 5% Lidocaine Gel Gel Lower Limb Edema Present Yes Yes Left Calf (cm) 34.5 34.5 Left Ankle (cm) 25.5 24.5 WC - Nurse 2 - General Ulcer CM Notes Start: 01/28/23 11:06 Freq: Status: Active Protocol: Activity Type Activity Date Activity User E-sign Co-sign Detail Recorded Client Recorded Date Recorded By Document 02/04/23 15:22 PL [id number] 02/04/23 15:22 PL 02/04/23 15:22 Wound Center Nurse 2 #4 left lateral LE -Time 11:10 -Correct Patient Yes -Correct Side, Site, Position Yes -Correct Procedure Yes -Procedure Performed Yes -Type of Procedure Debridement -Clinical Debridement Subcutaneous -Tissue Removed Subcutaneous -Post Debridement (cm) - Length 2.8 -Post Debridement (cm) - Width 1.0 -Post Debridement (cm) - Depth 0.1 -Total Square (Post) (cm) 2.80 -Area of Debridement (cm) - Length 2.8 -Area of Debridement (cm) - Width 1.0 -Total Square (Area) (cm) 2.80 -Tunneling No -Undermining/Tunneling No -Circular Undermining No -Wound/Ulcer Outcome Not Healed -Ulcer Cleansing Rinsed/ Irrigated with Saline -Foul Odor after Cleansing No -Bioengineered Tissue No -Bleeding Controlled with Pressure -Treatment Response Procedure Tolerated Well -Debridement - Subq, 1st 20sq cm Yes Pain Scale: 0-10 Numeric Is Patient Pain Free? Yes - Nurse 3 - General Ulcer D/C NN Start: 01/28/23 11:06 Freq: Status: Active Protocol: Activity Type Activity Date Activity User E-sign Co-sign Detail Recorded Client Recorded Date Recorded By Document 02/04/23 11:29 DL [id number] 02/04/23 11:31 DL Document 02/18/23 11:50 MW [id number] 02/18/23 11:52 MW 02/04/23 02/18/23 11:29 11:50 Wound Care Center Nurse 3 #4 left lateral LE -Ulcer Cleansing Rinsed/ Rinsed/ Irrigated with Irrigated with Saline Saline -Foul Odor after Cleansing No No -Negative Pressure Wound Therapy N/A -Primary Dressing Applied Promogran, C Hydrogel ($), Mepilex Border Mepilex Border -Mepilex Border 1 1 -Promogran 1 Treatment Response Procedure Procedure Tolerated Well Tolerated Well Pain Scale: 0-10 Numeric Is Patient Pain Free? Yes Yes Teaching: Wound Center Dressing Your Wound -Person Taught Patient,Family -Teaching Method Discussion, Demonstration -Response to teaching Verbalize understanding WC - Visit Discharge Discharge Condition Stable Stable Ambulatory Status Ambulatory Ambulatory Transportation Private Auto Private Auto Accompanied by family son Medication Reconcilliation completed & No provided to patient/care provider Clinical Summary of Care Provided Yes Assessment/Plan Assessment/Plan (1) Non-pressure chronic ulcer of left calf with fat layer exposed: CODE(S): L97.222 - Non-pressure chronic ulcer of left calf with fat layer exposed (2) Traumatic open wound of left lower leg with delayed healing: CODE(S): S81.802D - Unspecified open wound, left lower leg, subsequent encounter (3) Left leg swelling: CODE(S): M79.89 - Other specified soft tissue disorders (4) Leg edema: CODE(S): R60.0 - Localized edema (5) Diabetes mellitus: CODE(S): E11.9 - Type 2 diabetes mellitus without complications (6) Chronic venous insufficiency: CODE(S): I87.2 - Venous insufficiency (chronic) (peripheral) (7) Peripheral vascular disease: CODE(S): I73.9 - Peripheral vascular disease, unspecified (8) Paroxysmal atrial fibrillation: CODE(S): I48.0 - Paroxysmal atrial fibrillation (9) Atherosclerosis of coronary artery of [place] heart without angina pectoris: CODE(S): I25.10 - Atherosclerotic heart disease of [place] coronary artery without angina pectoris (10) 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 myocardial infarction: CODE(S): I25.2 - Old myocardial infarction (11) H/O coronary artery bypass surgery: CODE(S): Z95.1 - Presence of aortocoronary bypass graft (12) History of non-ST elevation myocardial infarction (NSTEMI): CODE(S): I25.2 - Old myocardial infarction (13) History of coronary artery stent placement: CODE(S): Z95.5 - Presence of coronary angioplasty implant and graft (14) Chronic diastolic (congestive) heart failure: CODE(S): I50.32 - Chronic diastolic (congestive) heart failure (15) Essential (primary) hypertension: CODE(S): I10 - Essential (primary) hypertension (16) HLD (hyperlipidemia): CODE(S): E78.5 - Hyperlipidemia, unspecified QUALIFIERS: Qualified Code(s): E78.0 - Pure hypercholesterolemia (17) Incomplete right bundle branch block: CODE(S): I45.10 - Unspecified right bundle-branch block (18) Paroxysmal supraventricular tachycardia: CODE(S): I47.1 - Supraventricular tachycardia (19) Paroxysmal supraventricular tachycardia: CODE(S): I47.1 - Supraventricular tachycardia (20) Arthritis: CODE(S): M19.90 - Unspecified osteoarthritis, unspecified site (21) GERD (gastroesophageal reflux disease): CODE(S): K21.9 - Gastro-esophageal reflux disease without esophagitis (22) Hypothyroidism: CODE(S): E03.9 - Hypothyroidism, unspecified (23) Degenerative disc disease, lumbar: CODE(S): M51.36 - Other intervertebral disc degeneration, lumbar region (24) History of TIA (transient ischemic attack): CODE(S): Z86.73 - Personal history of transient ischemic attack (TIA), and cerebral infarction without residual deficits (25) Pacemaker: CODE(S): Z95.0 - Presence of cardiac pacemaker (26) Old age: CODE(S): R54 - Age-related physical debility PLAN: Plan This is an 87-year-old female who presented with a traumatic wound on the left lateral calf, which had been present for over 4 weeks. It has failed to heal appropriately. The patient was using Medihoney topically on a daily basis. She also experiences chronic swelling in her lower extremities. She is not very active. She sleeps on a flat mattress at night. However, she spends a good part of each day in an idle sitting position. The patient lives alone. However, she has family members who live close by and are able to render assistance with daily needs. The wound is much smaller today, with evidence of significant and progressive healing. We are to transition to the use of collagen hydrogel, which will be applied topically by the patient on a daily basis. She and her family member have been instructed in the appropriate means of application. The patient has been encouraged to elevate her lower extremities, remain as active as tolerated, and to minimize the amount of time she spends sitting. We are to continue the use of Tubigrip's to the lower extremities bilaterally on a daily basis. The patient has been encouraged to optimize her nutritional intake. Optimization of the patient's glycemic control has also been encouraged. Hemoglobin A1c obtained on January 22, 2023, was 7.4. Because the patient complains of foot pain, which she claims limits her ability to ambulate, we have arranged a podiatry evaluation. The patient was evaluated by Dr. [place], and is now under his care. 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 Recent laboratory testing was obtained on January 16, 2023, with results as follows: White blood count 8.6, hemoglobin 12.4, hematocrit 39.9, platelets 320,000, ESR 18, potassium 3.3, sodium 139, chloride 111, BUN 20, creatinine 0.98, glucose 122, calcium 9.5, C-reactive protein less than 2.9, TSH 2.46. An x-ray of the left leg on January 16, 2023, revealed no acute findings. The patient is to follow-up on an outpatient basis in 1 week. In evaluating the prospect of using an allograft topically to the patient's wound, and has been learned that the amount of the patient's weekly co-pay insurance would likely be prohibitive. Total time: 24 minutes
== END 2023-02-25 23:59 | disposition home or self-care (01) ==
LOC: WC 10:45
PROVIDERS: PCP Family Medicine Geriatric Medicine; Visit Provider Surgery
DX: L97.222 Non-pressure chronic ulcer of left calf with fat layer exposed (principal); E11.51 Type 2 diabetes mellitus with diabetic peripheral angiopathy without gangrene; I11.0 Hypertensive heart disease with heart failure; I50.32 Chronic diastolic (congestive) heart failure; E11.59 Type 2 diabetes mellitus with other circulatory complications; I48.0 Paroxysmal atrial fibrillation; I47.1 Supraventricular tachycardia; Z79.4 Long term (current) use of insulin; Z80.0 Family history of malignant neoplasm of digestive organs; E78.00 Pure hypercholesterolemia, unspecified; Z79.01 Long term (current) use of anticoagulants; E03.9 Hypothyroidism, unspecified; I87.2 Venous insufficiency (chronic) (peripheral); Z95.5 Presence of coronary angioplasty implant and graft; I25.10 Atherosclerotic heart disease of native coronary artery without angina pectoris; M51.36 Other intervertebral disc degeneration, lumbar region; I45.10 Unspecified right bundle-branch block; K21.9 Gastro-esophageal reflux disease without esophagitis; Z95.0 Presence of cardiac pacemaker; M19.90 Unspecified osteoarthritis, unspecified site; Z87.891 Personal history of nicotine dependence; I25.2 Old myocardial infarction; S81.802D Unspecified open wound, left lower leg, subsequent encounter; Z95.1 Presence of aortocoronary bypass graft; Z86.73 Personal history of transient ischemic attack (TIA), and cerebral infarction without residual deficits; R54 Age-related physical debility
CPT/HCPCS: 11042

== ENCOUNTER 2023-02-25 20:51 | Emergency (ER) | payer MEDICARE, SELFPAY ==
[2019-10-26 12:20] VITALS: BMI 27.8
[2023-02-25] VITALS (9 sets, daily range): BP systolic 58–121; BP diastolic 41–71; PULSE 59–80; RESP 14–30; TEMP 34.4–35.3; O2SAT 77–90; BMI 31.4
[2023-02-25] MEDS: Sodium Bicarbonate 8.4% 50 ML Syringe 50 MEQ IV ×2 (20:59→21:00)
[2023-02-25] MEDS: Ondansetron 4 MG/2 ML Vial 8 MG IV (21:00)
--- NOTE | 2023-02-25 21:05 | ED.RN ---
soft wrist restraints applied due to pt agitation with ET tube. propofol started.
[2023-02-25] MEDS: Propofol 200 MG/20 ML Vial 40 MG IV BOLUS (21:08)
[2023-02-25] MEDS: Propofol 10MG/Ml 1,000 MG/100 ML Bottle 5 MG CONT INF (21:09)
--- NOTE | 2023-02-25 21:14 | RAD_ITS ---
STUDY: X-RAY CHEST REASON FOR EXAM: Female, 87 years old. tube placement, OG placed TECHNIQUE: Single AP portable view of the chest. COMPARISON: February 08, 2023. FINDINGS: There is an enteric tube with its tip overlying the left upper quadrant. The upper port lies at the level of the diaphragm. This should be advanced 1 or 2 cm stricture of the upper port lies within the gastric lumen. There is an endotracheal tube with its tip 2.5 cm above the holden. Vague patchy density throughout both lungs most marked in the upper lobes. There is no demonstrated pleural abnormality. Sternal cerclage wires are present from a prior sternotomy. The heart is normal in size. Normal mediastinum and norma. Normal visualized pulmonary arteries. There is atherosclerotic calcification of the aortic arch with tortuosity. There are diffuse degenerative changes of the visualized thoracic spine. There is degenerative osteoarthritis of the bilateral shoulders. There is no demonstrated abnormality of the visualized soft tissue structures of the upper abdomen. RAD/Chest 1 View (Portable) IMPRESSION: 1. Tubes and catheters as described. 2. Vague patchy groundglass pulmonary infiltrates. Electronically Signed: Ron Stanton DO at 21:51 EDT ,
--- NOTE | 2023-02-25 21:17 | EX.ED.DYSGE1 ---
HPI History of Present Illness Chief Complaint: CPR Narrative Narrative: Patient is a 87-year-old female who is presenting to the ER status post cardiac arrest, status post V-fib arrest. Patient was at home, patient had a choking episode per daughter. When EMS arrived at approximately 8 PM, patient did not have a pulse. ACLS protocols were initiated. Dr Rodriguez had taken a phone call from [employer] at approximately 2027 and patient was pronounced , they had worked on her for approximately 30 minutes at home. Patient had been shocked 8 times, patient had over 8 doses of epinephrine. Patient's blood sugar was 116. After I got off the phone with the chief technical officer, he had gone back inside to the house and patient had regained a pulse. Patient had a i-gel tube placed. There was quite a bit of suctioning done with emesis at home as well. Patient was brought to the ER for evaluation. There was 1 son here initially that arrived approximately 10-15 minutes after patient had arrived. Patient was found on the couch. Patient's had no falls. Patient was due to go to [facility] tomorrow secondary to progressing weakness. Patient does have a pacemaker and a loop recorder. Patient was found to have no pulse at approximately 800PM. Patient was found to have a pulse at approximately 8:30 PM. Patient had ACLS efforts ongoing for approximately 30 minutes. [facility] Medical History Anemia Arthritis Arthritis Atherosclerosis of coronary 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 Atherosclerosis of coronary artery of hoh heart without angina pectoris Chronic diastolic (congestive) heart failure Chronic venous insufficiency DDD (degenerative disc disease), lumbar Degenerative disc disease, lumbar Diabetes mellitus Diabetes mellitus type 2 in nonobese Essential (primary) hypertension Fibromyalgia GERD (gastroesophageal reflux disease) History of non-ST elevation myocardial infarction (NSTEMI) (02/02/19) History of TIA (transient ischemic attack) History of TIA (transient ischemic attack) HLD (hyperlipidemia) Hypothyroidism Hypothyroidism Incomplete right bundle branch block Intervertebral disc stenosis of neural canal of lumbar region Left leg swelling Leg edema 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 Old age 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 myocardial infarction Overweight (BMI 25.0-29.9) Pacemaker Paroxysmal atrial fibrillation Paroxysmal supraventricular tachycardia Paroxysmal supraventricular tachycardia Peripheral vascular disease PVD (peripheral vascular disease) Reactive arthritis Traumatic open wound of left lower leg with delayed healing Type 2 diabetes mellitus without complications UGI bleed (10/22/18) Venous insufficiency Home Medications nitroglycerin 0.4 mg sublingual tablet 0.4 mg sublingual Q5M PRN Chest Pain 12/21/13 [History Last Taken 01/31/19] apixaban 5 mg tablet (Eliquis) 5 mg PO BID #60 tabs 05/09/22 [Rx Last Taken Unknown] furosemide 40 mg tablet 40 mg PO DAILY water pill #90 tabs 05/09/22 [Rx Last Taken Unknown] pantoprazole 40 mg tablet,delayed release 40 mg PO DAILY #90 tabs 05/09/22 [Rx Last Taken Unknown] potassium chloride 20 mEq tablet,extended release(part/cryst) 20 meq PO DAILY SUPPLEMENT #90 tabs 05/09/22 [Rx Last Taken Unknown] levothyroxine 25 mcg tablet 88 mcg PO DAILY 06/11/22 [History Last Taken Unknown] rosuvastatin 40 mg tablet 40 mg PO DAILY #90 tabs 06/11/22 [Rx Last Taken Unknown] spironolactone 25 mg tablet 25 mg PO DAILY #90 tabs 06/11/22 [Rx Last Taken Unknown] aspirin 81 mg tablet,delayed release 81 mg PO DAILY 01/21/23 [History Last Taken Unknown] clopidogrel 75 mg tablet 75 mg PO DAILY 01/21/23 [History Last Taken Unknown] insulin glargine U-300 conc 300 unit/mL (3 mL) subcutaneous pen (Toujeo Max U-300 SoloStar) 45 unit subcut BID 01/21/23 [History Last Taken Unknown] insulin lispro 100 unit/mL subcutaneous pen (Humalog KwikPen (U-100) Insulin) 10 unit subcut DAILY 01/21/23 [History Last Taken Unknown] vitamin B complex 1 tab PO DAILY 01/21/23 [History Last Taken Unknown] metoprolol succinate 50 mg capsule sprinkle, ext. release 24 hr 50 mg PO DAILY #90 ea 02/20/23 [Rx Last Taken Unknown] Allergy/AdvReac Type Severity Reaction Status Date / Time No Known Allergies Allergy Verified 02/08/23 11:29 Family History Mother Colon cancer Mother Heart disease Surgical History H/O coronary artery bypass surgery (09/08/92) History bilateral cataract surgery History of coronary artery stent placement (02/03/19) History of hemorrhoidectomy History of laparoscopic cholecystectomy History of loop recorder (11/08/19) Social History Smoking Status: Former smoker alcohol intake: current alcohol intake frequency: holidays/special occasions only substance use type: does not use caffeine: No what type of physical activity do you participate in: none ROS ROS ED ROS Narrative Review of systems was limited initially secondary to EMS staff EXAM Physical Exam Narrative Exam Narrative: Vital signs reviewed and patient is hypoxic. General: The patient appears mild distress secondary to status post V-fib arrest. Patient is resting comfortably on cart. Patient is lying on a backboard that was being used for a Jignesh device. Patient is llethargic, or listless. Patient has i-gel tube in place. Bag valve mask is in place. Skin: Warm, mottled, cold, no pallor noted. There is no rash noted. Head: Normocephalic, atraumatic Eye: Normal conjunctiva, no drainage, EOMI. PERRL. 4mm fixed, nonresponsive Ears, Nose, Mouth, and Throat: oral patient has her upper dentures, patient has emesis noted to the posterior pharynx, serosanguineous tinge,. iGEL in place. Cardiovascular: Regular Rate and Rhythm, no murmurs, gallops, or rubs Respiratory: Patient has iGEL in place, currently breathing with bag, valve, mask GI: Soft,obese, not rigid, no tympany, no distention Musculoskeletal: Patient is not moving any extremities. Neurological: A&O x0, GCS 3T, Const Vital Signs: 02/25/23 20:53 02/25/23 20:59 02/25/23 21:07 Temperature 95.5 F L Temperature Source Temporal Pulse Rate 59 L 80 Respiratory Rate 20 H 14 Respiratory Effort Agonal Respiratory Pattern Blood Pressure 121/70 H 102/71 Blood Pressure Mean 87 81 Blood Pressure Position Supine Blood Pressure Location Left Arm Pulse Ox 80 Oxygen Delivery Method Ambu-Bag Mechanical Ventilator Fraction of Inspired Oxygen (FIO2) 02/25/23 21:00 02/25/23 21:57 02/25/23 22:06 Temperature Temperature Source Pulse Rate 60 Respiratory Rate 30 H Respiratory Effort Mechanically Ventilated Respiratory Pattern Tachypnea Blood Pressure 102/71 Blood Pressure Mean 81 Blood Pressure Position Blood Pressure Location Pulse Ox Oxygen Delivery Method Mechanical Ventilator Fraction of Inspired Oxygen (FIO2) 02/25/23 22:08 02/25/23 22:08 02/25/23 22:16 Temperature 93.9 F L 93.9 F L Temperature Source Core Core Pulse Rate 69 69 Respiratory Rate 23 H 23 H Respiratory Effort Respiratory Pattern Blood Pressure 82/62 L 82/62 L 77/50 L Blood Pressure Mean 68 68 59 Blood Pressure Position Blood Pressure Location Pulse Ox 90 90 Oxygen Delivery Method Mechanical Ventilator Mechanical Ventilator Fraction of Inspired Oxygen (FIO2) 02/25/23 22:30 02/25/23 22:45 02/25/23 23:02 Temperature Temperature Source Pulse Rate 67 71 68 Respiratory Rate 27 H 25 H 26 H Respiratory Effort Respiratory Pattern Blood Pressure 83/52 L 84/58 L 58/41 L Blood Pressure Mean 62 66 46 Blood Pressure Position Blood Pressure Location Pulse Ox 78 85 77 Oxygen Delivery Method Mechanical Ventilator Mechanical Ventilator Mechanical Ventilator Fraction of Inspired Oxygen (FIO2) 02/25/23 21:01 Temperature Temperature Source Pulse Rate 68 Respiratory Rate 26 H Respiratory Effort Respiratory Pattern Tachypnea Blood Pressure Blood Pressure Mean Blood Pressure Position Blood Pressure Location Pulse Ox 88 Oxygen Delivery Method Fraction of Inspired Oxygen (FIO2) 100 MDM MDM MDM Narrative Medical decision making narrative: Patient had 8 separate shocks given for V-fib. Patient was in PEA as well. Patient was given approximately 8 epinephrines, also 30 mg of amiodarone was given as well. Amiodarone drip was started in the ER. Patient is being given propofol for sedation. 2300 patient's potassium was low at 2.5. Lab work was discussed with 2 daughters and 1 son at bedside. They are aware of elevated white blood cells at 22 which most likely could be stress from ACLS for 30 minutes. Patient's potassium is 2.5. Patient's chloride is 110. Carbon dioxide level is 20. Patient's sugar is elevated as well along with LFTs. All 4 children are very in unison and adamant that patient did not want any of this, she did not want to be on a ventilator, she did not want to live like this, and they are very concerned about brain function. They wanted no additional medication to help with her heart, they did not want a pressor. Patient's been on propofol to help with sedation, patient becoming hypotensive. Sedation was weaned down by nursing staff because of hypotension, but then patient is fighting the vent slightly. Mild secretions heard. Patient's heart rate is decreasing as well. Family did not want patient to be on any IV pressors. They did not want any type of heroics. They do not want patient to be on a ventilator because she did not want that either. Patient's 2 daughters were power of assistant city attorney signed the DNR CC form, they would like patient to be terminally weaned from the ventilator. Lab Data Labs: Laboratory Results - last 24 hr 02/25/23 02/25/23 02/25/23 21:10 21:10 21:10 WBC 22.3 H RBC 3.99 L Hgb 11.2 L Hct 37.2 MCV 93.2 MCH 28.1 MCHC 30.1 L RDW Std Deviation 48.5 H RDW Coeff of Miko 14.1 Plt Count 221 MPV 11.6 Neut % (Auto) Not Reportable Absolute Neuts (auto) 12.5 H Absolute Lymphs (auto) 7.34 H Total Counted 100 Neutrophils % (Manual) 50 Band Neutrophils % 6 H Lymphocytes % (Manual) 33 Monocytes % (Manual) 8 Eosinophils % (Manual) 2 Myelocytes % 1 H Differential Comment SEE COMMENT Diff Path Review May foll Atypical Lymphocytes 1+ Toxic Granulation RARE Platelet Estimate ADEQUATE RBC Morphology N CHROM Anisocytosis RARE Macrocytosis RARE PT 17.5 H INR 1.4 APTT 51.7 H Sodium 151 H Potassium 2.5 L* Chloride 110 H Carbon Dioxide 20.0 L Anion Gap 21 H BUN 23 H Creatinine 1.32 H Estim Creat Clear Calc 26.91 Est GFR (MDRD) Af Amer 49 L Est GFR (MDRD) Non-Af 41 L BUN/Creatinine Ratio 17.4 Glucose 236 H Lactic Acid Calcium 8.1 L Total Bilirubin 0.30 AST 123 H ALT 114 H Alkaline Phosphatase 90 Total Creatine Kinase 252 H Total Protein 4.8 L Albumin 2.2 L Globulin 2.6 Albumin/Globulin Ratio 0.8 L Triglycerides Urine Color Urine Clarity Urine pH Ur Specific Joes Urine Protein Urine Glucose (UA) Urine Ketones Urine Occult Blood Urine Nitrite Urine Bilirubin Urine Urobilinogen Ur Leukocyte Esterase Urine RBC Urine WBC Ur Squamous Epith Cells Urine Bacteria Urine Mucus 02/25/23 02/25/23 02/25/23 21:10 21:10 21:33 WBC RBC Hgb Hct MCV MCH MCHC RDW Std Deviation RDW Coeff of Miko Plt Count MPV Neut % (Auto) Absolute Neuts (auto) Absolute Lymphs (auto) Total Counted Neutrophils % (Manual) Band Neutrophils % Lymphocytes % (Manual) Monocytes % (Manual) Eosinophils % (Manual) Myelocytes % Differential Comment Diff Path Review Atypical Lymphocytes Toxic Granulation Platelet Estimate RBC Morphology Anisocytosis Macrocytosis PT INR APTT Sodium Potassium Chloride Carbon Dioxide Anion Gap BUN Creatinine Estim Creat Clear Calc Est GFR (MDRD) Af Amer Est GFR (MDRD) Non-Af BUN/Creatinine Ratio Glucose Lactic Acid 13.0 H* Calcium Total Bilirubin AST ALT Alkaline Phosphatase Total Creatine Kinase Total Protein Albumin Globulin Albumin/Globulin Ratio Triglycerides 137 Urine Color Yellow Urine Clarity Sl. Cloudy Urine pH 5.0 Ur Specific Joes 1.025 Urine Protein 30 H Urine Glucose (UA) Normal Urine Ketones 5 H Urine Occult Blood 10 H Urine Nitrite Negative Urine Bilirubin Negative Urine Urobilinogen Normal Ur Leukocyte Esterase 25 H Urine RBC 0-5 SEEN Urine WBC 0-5 SEEN Ur Squamous Epith Cells 0-5 SEEN Urine Bacteria 0 SEEN Urine Mucus 0 SEEN Patient's family is aware of her urine results, metabolic panel, liver function test, and CBC with differential. ABG Data ABG results: ABG 02/25/23 21:43 Specimen Type ART Sample Site L Radial pH 6.98 L* Bicarbonate Actual 14.2 L Total CO2 16 Base Excess -17 L O2 Saturation 87 L O2 % 100 ABG pCO2 59.9 H ABG pO2 81 Delbert Test Positive Respiration Rate 14 O2 Delivery Device Adult Vent Vent Mode AC Tidal Volume 400 POC PEEP 5 Crit Call To/Read Back Yes Blood Gas Notified Whom Pay Radiography Chest X-Ray - ED: 1 View and Read by ED Physician Diagnostic Testing: Clinical Impression(s) from Imaging Studies Chest X-Ray 02/25/23 21:14 IMPRESSION: 1. Tubes and catheters as described. 2. Vague patchy groundglass pulmonary infiltrates. Electronically Signed: Ron Stanton DO at 21:51 EDT Reading Location ID and State: [facility] / [place] Tel [phone], Service support , Initial chest x-ray shows good placement of the ET tube and OG tube. No obvious rib fractures noted, patient has diffuse bilateral congestion, possible infiltrates right upper lobe from possible aspiration. No obvious signs of pneumothorax. EKG Initial EKG: Attestation: I personally reviewed and interpreted this EKG as follows: Comments: EKG interpretation. Sinus bradycardia at 59 beats a minute. Left axis deviation. No acute ST elevation, diffuse ST depression, QRS 158, wide. Treatment and Re-Evaluation :: PROCEDURE NOTE: Intubation, changing i-gel to 7.5ET tube Procedure Note. Procedure done by . Intubation. patient was preoxygenated with [id number], patient maintain oxygenation in the high [80s %] saturation. [place] Scope used. Approximately 10 to 20 cc of fluid was suctioned prior to attempt. 1 attempt was done. A [3-0] [place] scope blade was used. Upper dentures were removed, patient has no lower dentures or teeth. Patient's dentitions are intact. A [7.5 ]ET tube was used. The balloon was checked with 10 cc of air prior to used. There is no holes in the balloon. Vocal cords were visualized. The ET tube was visualized passing through the vocal cords. Patient had good color change on capnometer. Patient had equal breath sounds bilateral, good condensation in the ET tube. The ET tube was secured at [22cm] at the gumline. Patient tolerated the procedure well without difficulty, no trauma was induced. dentition remained intact. Postintubation chest x-ray was done, patient's ET tube is sitting above the holden. 2350 time of , confirmed by bedside ultrasound by Dr. Rodriguez. Asystole in 2 leads were noted as well. Patient's daughters have been at bedside after patient was terminally weaned. Patient's family asked that patient be terminally wean, and no other life support medications be giving including the amiodarone or any type of vasopressor, any potassium replacement, IV fluids, or anything else lifesaving. Patient was given 8 mg of morphine IV, 2 mg of Ativan IV, and 4 mg of Zofran prophylactically. Patient was terminally weaned. Daughters have been at bedside. Daughters were extremely thankful to nursing staff and myself for her end-of-life care. 1601 I spoke to and he is aware the patient and will sign the certificate. Patient is not a invertebrate paleontologist's case. Discharge Plan Triage Chief Complaint: CPR ED Provider: Dalton Rodriguez Dx/Rx/DC Orders Clinical Impression: Cardiopulmonary arrest, Cardiopulmonary arrest with successful resuscitation Prescriptions: No Action levothyroxine 25 mcg tablet 88 mcg PO DAILY Label Comments: take 1 tablet by mouth once daily Rx Instructions: take with 50 mcg to equal 75 mcg rosuvastatin 40 mg tablet 40 mg PO DAILY Qty: 90 3RF spironolactone 25 mg tablet 25 mg PO DAILY Qty: 90 3RF nitroglycerin 0.4 MG tablet 0.4 mg SUBLINGUAL Q5M PRN (Reason: Chest Pain) clopidogrel 75 mg Tablet 75 mg PO DAILY aspirin [Aspir-81] 81 mg Tablet,Delayed Release (Dr/Ec) 81 mg PO DAILY vitamin B complex [Super B Complex] Tablet 1 tab PO DAILY insulin lispro [Humalog KwikPen Insulin] 100 unit/mL Insulin Pen 10 unit SUBCUT DAILY Toujeo Max U-300 SoloStar 300 unit/mL (3 mL) Insulin Pen 45 unit SUBCUT BID furosemide 40 mg tablet 40 mg PO DAILY Qty: 90 3RF potassium chloride 20 mEq tablet,ER particles/crystals 20 meq PO DAILY Qty: 90 3RF pantoprazole 40 mg tablet,delayed release (DR/EC) 40 mg PO DAILY Qty: 90 3RF Rx Instructions: Take at bedtime, due to levothyroxine in AM Eliquis 5 mg tablet 5 mg PO BID Qty: 60 4RF metoprolol succinate 50 mg capsule,sprinkle,ER 24hr 50 mg PO DAILY Qty: 90 3RF Primary Care Provider: Brian Degroot Chi Referrals: Brian Degroot Chi, MD [Primary Care Provider] - Disposition Disposition:
[2023-02-25 21:29] LABS: Hematocrit 37.2 % (37-47); Hemoglobin 11.2 g/dL (12.0-15.0); Mean Corp Hgb Conc 30.1 g/dL (32-36); Mean Corpuscular Hgb 28.1 pg (27.0-32.0); Mean Corpuscular Volume 93.2 fL (81-99); Mean Platelet Vol. 11.6 fl (6.2-12.0); POSITIVE COUNT YES; POSITIVE DIFFERENTIAL YES; POSITIVE MORPHOLOGY YES; Platelet Count 221 K/mm3 (150-450); RBC Distribution Width CV 14.1 % (11.6-14.6); RBC Distribution Width SD 48.5 fl (35.1-43.9); Red Blood Count 3.99 M/mm3 (4.2-5.4); White Blood Count 22.3 K/mm3 (4.4-11.0)
[2023-02-25 21:30] LABS: Differential Indicated MANUAL DIFF
[2023-02-25 21:39] LABS: Bacteria 0 SEEN /hpf (None Seen); Mucous, Urine 0 SEEN /hpf (<or=2+)
[2023-02-25 21:42] LABS: Color, Urine Yellow (Yellow); Glucose, Dipstick Normal (Normal); Ketone-Dipstick 5 mg/dl (Negative); Leukocyte Esterase-Dipstick 25 /ul (Negative); Nitrite-Dipstick Negative (Negative); Occult Blood-Urine 10 /ul (Negative); Protein-Dipstick 30 mg/dl (Negative); Specific Gravity, Urine 1.025 (1.002-1.030); Urine Bilirubin Dipstick Negative (Negative); Urine Clarity Sl. Cloudy (Clear); Urine Urobilinogen Normal (Normal)
[2023-02-25 21:43] LABS: International Normalized Ratio 1.4; Prothrombin Time (Protime)PT. 17.5 SECONDS (11.7-14.9)
[2023-02-25 21:44] LABS: Partial Thromboplast Time 51.7 Seconds (24.1-36.2)
[2023-02-25 21:47] LABS: Allen Test Positive; Base Excess -17 mmol/L (-2 to +2); Bicarbonate 14.2 mmol/L (22-26); Blood Gas Specimen Type ART; FI02 100; Mode AC; O2 Delivery Device Adult Vent; PEEP 5; PO2 81 mmHG (75-100); RR 14; SITE L Radial; SO2 87 % (95-99); Total Carbon Dioxide 16 mmol/L; Vt 400; pCO2 59.9 mmHg (35-45); pH 6.98 (7.35-7.45)
[2023-02-25 21:49] LABS: Red Blood Cells-Urine 0-5 SEEN /hpf (0-5); Squamous Epithelial Cells - UA 0-5 SEEN /hpf (5-10); White Blood Cells 0-5 SEEN /hpf (0-5)
[2023-02-25 21:54] LABS: ALB/GLOB Ratio 0.8 RATIO (0.9-2.4); AST(SGOT) 123 U/L (15-37); Alanine Aminotransfer ALT/SGPT 114 U/L (13-56); Albumin, Serum 2.2 g/dL (3.2-5.0); Alkaline Phosphatase 90 U/L (45-117); Anion Gap 21 (5-15); BUN 23 mg/dL (7-18); BUN/Creat Ratio 17.4 RATIO (10-20); CPK Total, Creatine Kinase 252 U/L (26-192); Calcium,Total 8.1 mg/dL (8.5-10.1); Chloride 110 mmol/L (98-107); Creatinine, Serum 1.32 mg/dL (0.55-1.02); EST Glomerular Filtration Rate 41 mL/min (>60); Est Glom Filt Rate - Afr Amer 49 mL/min (>60); Estimated Creatinine Clearance 26.91 ml/min; Globulin 2.6 g/dL (2.2-4.2); Glucose 236 mg/dL (74-106); Potassium 2.5 mmol/L (3.5-5.1); Protein, Total 4.8 g/dL (6.4-8.2); Sodium Level 151 mmol/L (136-145)
--- NOTE | 2023-02-25 22:00 | NURSING ---
IO in left shoulder removed at 2115
[2023-02-25 22:06] LABS: Eosinophil 2 % (0-5); Lymphocyte 33 % (19-41); Monocyte 8 % (0-10); Myelocyte 1 % (0-0); Neutrophil-Band 6 % (0-5); Neutrophil-Segmented 50 % (47-70); Total Cells Counted 100 (MANUAL DIFF)
[2023-02-25 22:09] LABS: Absolute Neutrophil Count 12.5 X10^3/uL (2.0-7.7)
[2023-02-25 22:10] LABS: Absolute Lymphocyte Count 7.34 X10^3/uL (0.83-4.51); Atypical Lymphocyte 1+ %
[2023-02-25 22:11] LABS: Anisocytosis RARE; Macrocytosis RARE; Platelet Estimate ADEQUATE (ADEQ); Red Cell Morphology N CHROM NORMAL (NORM C&C); Toxic Granulation RARE
[2023-02-25 22:27] LABS: Triglycerides 137 mg/dL
--- NOTE | 2023-02-25 22:32 | NURSING ---
pt vitals beginning to decline. this nurse spoke with family about pt wishing and her living will. Pt is DNR and family is stating this is not what she wants. All the family agrees she wouldn't want all this. updated.
--- NOTE | 2023-02-25 22:42 | ED.RN ---
doctor in room discussing options with pt POA and family.
--- NOTE | 2023-02-25 22:48 | ED.RN ---
verbal order to stop IV medication
[2023-02-25] MEDS: morphine 8 MG/ML Syringe IV (22:52)
[2023-02-25] MEDS: Ondansetron 4 MG/2 ML Vial IV (22:52)
[2023-02-25] MEDS: LORazepam 2 MG/ML Syringe IV (22:52)
--- NOTE | 2023-02-25 22:58 | NURSING ---
soft wrist restraints removed
--- NOTE | 2023-02-25 23:09 | ED.RN ---
pt extubated. Pt resting family at bedside.
--- NOTE | 2023-02-25 23:54 | ED.RN ---
time of [id number]
[2023-02-26 01:24] LABS: Reflex Lactate? Y
[2023-02-27 09:27] LABS: Pathologist Review Reviewed
== END 2023-02-26 02:29 ==
PROVIDERS: Emergency Provider Emergency Medicine; PCP Family Medicine Geriatric Medicine; Visit Provider Emergency Medicine
DX: I49.01 Ventricular fibrillation (principal); I11.0 Hypertensive heart disease with heart failure; I50.32 Chronic diastolic (congestive) heart failure; I46.2 Cardiac arrest due to underlying cardiac condition; I48.0 Paroxysmal atrial fibrillation; E11.9 Type 2 diabetes mellitus without complications; Z79.4 Long term (current) use of insulin; I25.10 Atherosclerotic heart disease of native coronary artery without angina pectoris; I25.2 Old myocardial infarction; E78.5 Hyperlipidemia, unspecified; Z95.0 Presence of cardiac pacemaker; Z95.5 Presence of coronary angioplasty implant and graft; Z79.02 Long term (current) use of antithrombotics/antiplatelets; Z79.82 Long term (current) use of aspirin; Z79.899 Other long term (current) drug therapy; Z86.73 Personal history of transient ischemic attack (TIA), and cerebral infarction without residual deficits; Z87.891 Personal history of nicotine dependence
CPT/HCPCS: 31500; 31720; 36600; 51702; 71045; 80053; 81001; 82550; 82803; 83605; 84478; 85025; 85610; 85730; 87086; 93005; 94002; 96365; 96366; 96375; 96376; 99252; 99285; J7030; A4216; G0463; J2405